=== PATIENT | male | born 1940 | race Caucasian/White ===

== ENCOUNTER 2022-12-02 08:53 | Outpatient (OUT) | payer MEDICARE, SELFPAY ==
[2022-12-02] VITALS (30 sets, daily range): BP systolic 113–171; BP diastolic 61–113; PULSE 60–78; RESP 10–23; O2SAT 95–100
--- NOTE | 2022-12-02 | OP_ITS ---
OPERATION DATE: ??12/02/2022 PROCEDURE PERFORMED:? Cardioversion. INDICATIONS:? Mr. Barroso presented to the ICU for cardioversion.? He was noted to be in atrial fibrillation and underlying paced rhythm.? PROCEDURE:? After sedation was provided, 200 joules of energy was delivered to cardiovert him and on this he cardioverted and his pacemaker was programmed to enable adequate AV delay to prevent PMT.? ANGELIKA
--- NOTE | 2022-12-02 08:05 | ECG_ITS ---
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
--- NOTE | 2022-12-02 10:18 | ECG_ITS ---
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
--- NOTE | 2022-12-02 12:01 | PC.NURSE ---
0950 anesthesia at bedside, pt a/o. this rn and jacobo valentine present. vs continuously monitored. 0951 time out performed with pt, nurses and dr salcido 0955 patches applied to pts chest and back per dr salcido, O2 applied at 6lnc via simple mask. medications given per anesthesia in RFA iv. 0957 pt shocked with 200J per dr salcido. pt sedated, remains in afib. 1007 electrophysiology at [facility] for pacemaker interrogation, pt in afib. 1008 pt medicated again per anesthesia 1012 pt sedated, simple mask maintained. continuous vs obtained. shocked 2nd time with 200J per dr salcido. electrophysiology interrogated pacemaker and determines pt is currently A-paced and V-paced. 1025 pt awake and talking, vs remain stable. this rn and jacobo valentine present. family updated.
== END 2022-12-02 11:28 | disposition home or self-care (01) ==
LOC: ICU 09:44 → INF 09:44
PROVIDERS: PCP Internal Medicine; Visit Provider Internal Medicine
DX: I48.91 Unspecified atrial fibrillation (principal); I48.92 Unspecified atrial flutter; I44.7 Left bundle-branch block, unspecified; R94.31 Abnormal electrocardiogram [ECG] [EKG]
CPT/HCPCS: 92960; 93005; J2704

== ENCOUNTER 2022-12-23 08:42 | Outpatient (OUT) | payer MEDICARE, SELFPAY ==
[2022-12-23 10:32] LABS: Anion Gap 9.8; BUN Creatinine Ratio 17.1; Carbon Dioxide 31.7 mmol/L (21.0-32.0); Chloride 103 mmol/L (98-107); Estimated GFR (African America >60 (>=60); Estimated GFR (Non-African Ame 53 (>=60); Glucose 211 mg/dL (74-106); Potassium 4.5 mmol/L (3.5-5.1); Sodium 140 mmol/L (136-145)
== END 2022-12-23 08:43 | disposition home or self-care (01) ==
LOC: LAB 08:44
PROVIDERS: PCP Internal Medicine
DX: I50.32 Chronic diastolic (congestive) heart failure (principal)
CPT/HCPCS: 36415; 80048; 83880

== ENCOUNTER 2022-12-31 13:48 | Outpatient (OUT) | payer MEDICARE, SELFPAY ==
--- NOTE | 2022-12-31 13:00 | CA_ITS ---
Patient: YAJAIRA VEGA Exam Date: 12/31/2022 : 1940 Gender:M Ordering : TYRONE ESQUIVEL Admission #: [id number] Family : DR Julio Patton D.Valarie Order #: [id number] CLICK HERE TO VIEW EXAM ECHOCARDIOGRAM REPORT PROCEDURE: CA ECHO DOPPLER COMPLETE INDICATIONS: CHF, Pacemaker COMPARISON: None. DESCRIPTION: COMPLETE ECHOCARDIOGRAM Real-time transthoracic echocardiography with 2D, M-mode, spectral and color flow Doppler performed. QUALITY: Lumason contrast was administered due to suboptimal imaging for left ventricular opacification to improve delineation of endocardial boarders. Limited; LVF LEFT VENTRICLE: Normal chamber size. Global left ventricular systolic function is normal. LV EF: Normal left ventricular ejection fraction, (>55%). DIASTOLIC: Unable to assess diastolic function. ATRIAL SEPTUM: Inadequately seen. LEFT ATRIUM: Moderate dilatation. RIGHT ATRIUM: Moderate dilatation. RIGHT VENTRICLE: Severe dilatation. Severely decreased right ventricular systolic function. Pacer wire present. TRICUSPID VALVE: Inadequately seen. MITRAL VALVE: Inadequately seen. AORTIC VALVE: Inadequately seen. AORTIC ROOT: Inadequately seen. PULMONIC VALVE: Inadequately seen. PERICARDIUM: No evidence of pericardial effusion. IVC: Collapses with inspirations. IVC is normal in size. CONCLUSION: Global left ventricular systolic function appears normal; visually estimated ejection fraction is 55 to 60%. Biatrial enlargement. The right ventricle appears severely dilated with significantly reduced systolic function. Valvular structures are inadequately seen. Adult Echocardiography Procedure Report Left Ventricle Left Atrium Mitral Valve Right Ventricle Aorta Aortic Valve Tricuspid Valve Pulmonic Valve Right Atrium Dictated by: Scotty Terry M.D. on 01/01/2023 at 18:40 Approved by: Scotty Terry M.D. on 01/01/2023 at 18:43
== END 2022-12-31 13:49 | disposition home or self-care (01) ==
LOC: CARD 13:48
PROVIDERS: PCP Internal Medicine; Visit Provider Nurse Practitioner
DX: I50.33 Acute on chronic diastolic (congestive) heart failure (principal); I51.9 Heart disease, unspecified
CPT/HCPCS: 93306; C8929

== ENCOUNTER 2023-03-26 08:50 | Outpatient (OUT) | payer MEDICARE, SELFPAY ==
[2023-03-26 09:13] LABS: Basophils Percent Auto 0.4 % (0.2-2.0); Eosinophils Absolute Auto 0.1 10^3/uL (0.0-0.7); Eosinophils Percent Auto 1.2 % (0.9-7.0); Hematocrit 47.4 % (42.0-54.0); Hemoglobin 15.5 g/dL (14.0-18.0); Immature Granulocytes Abs Auto 0.03 10^3/uL (0.00-0.03); Immature Granulocytes Pct Auto 0.3 % (0.0-0.5); Lymphocytes Absolute Auto 2.4 10^3/uL (1.2-3.8); Lymphocytes Percent Auto 26.4 % (20.5-60.0); Mean Corpuscular HGB Conc 32.7 g/dL (29.9-35.2); Mean Corpuscular Hemoglobin 29.4 pg (25.9-34.0); Mean Corpuscular Volume 89.9 fL (80.0-94.0); Mean Platelet Volume 11.6 fL (9.5-13.5); Monocytes Absolute Auto 0.8 10^3/uL (0.3-0.8); Monocytes Percent Auto 9.4 % (1.7-12.0); Neutrophils Absolute Auto 5.5 10^3/uL (1.4-6.5); Neutrophils Percent Auto 62.3 % (43.0-75.0); Platelet Count 213 10^3/uL (150-450); Red Blood Count 5.27 10^6/uL (4.70-6.10); Red Cell Distribution Width 13.5 % (11.0-15.0); White Blood Count 8.9 10^3/uL (4.0-11.0)
[2023-03-26 10:08] LABS: Microalbumin Urine Random 1.6 mg/dL (<=30.0)
[2023-03-26 10:14] LABS: Alanine Aminotransferase 21 U/L (16-63); Anion Gap 10.6; BUN Creatinine Ratio 16.9; Calcium 9.5 mg/dL (8.5-10.1); Carbon Dioxide 33.7 mmol/L (21.0-32.0); Chloride 103 mmol/L (98-107); Chol HDL Ratio 2.3; Cholesterol 147 mg/dL (<=200); Estimated GFR (African America 58 (>=60); Estimated GFR (Non-African Ame 48 (>=60); Glucose 143 mg/dL (74-106); HDL Cholesterol 63 mg/dL (40-60); Potassium 5.3 mmol/L (3.5-5.1); Sodium 142 mmol/L (136-145); Triglycerides 143 mg/dL (<=150); VLDL CHOLESTEROL 28.6 mg/dL
[2023-03-26 10:52] LABS: Estimated Average Glucose 177 mg/dL; Glycohemoglobin A1C 7.8 % (4.5-6.2)
== END 2023-03-26 08:51 | disposition home or self-care (01) ==
LOC: LAB 08:51
PROVIDERS: PCP Internal Medicine; Visit Provider Internal Medicine
DX: E11.65 Type 2 diabetes mellitus with hyperglycemia (principal); E78.00 Pure hypercholesterolemia, unspecified; I10 Essential (primary) hypertension; Z79.899 Other long term (current) drug therapy
CPT/HCPCS: 36415; 80048; 80061; 82043; 83036; 84460; 85025

== ENCOUNTER 2023-11-09 12:42 | Outpatient (OUT) | payer MEDICARE, SELFPAY ==
--- NOTE | 2023-11-09 13:00 | CA_ITS ---
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 PVR waveforms with normal upstroke, blunted amplitude and loss of dicrotic notch. 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 (right OSWALD 0.96) Significant left lower extremity arterial disease with mild hemodynamic impairment of the left lower extremity at rest. (left OSWALD 0.89) Electronically Signed On 11-09-2023 23:10:31 EDT by PABLO WHITESIDE
== END 2023-11-09 12:43 | disposition home or self-care (01) ==
LOC: CARD 12:42
PROVIDERS: PCP Internal Medicine; Visit Provider Student in an Organized Health Care Education/Training Program
DX: I73.9 Peripheral vascular disease, unspecified (principal)
CPT/HCPCS: 93923

== ENCOUNTER 2024-03-29 08:55 | Outpatient (OUT) | payer MEDICARE, SELFPAY ==
--- OUTSIDE RECORDS SUMMARY | 2024-03-29 09:14 | XMS_ITS | CCD ---
Author Organization [facility]ini[facility] Care Team Providers Care Cupola Tapper Helper Name Role Phone JULIO PATTON Unavailable Unavailable BALL, JULIO Unavailable Unavailable AHMED, GEORGE Unavailable Unavailable AHMED, GEORGE Unavailable Unavailable IN Unavailable Unavailable GUNNAR WALLACE Unavailable Unavailable TAMI SQUIRES AM Unavailable Unavailable BALL, JULIO Unavailable Unavailable RHONA, KADEN Unavailable Unavailable COLLINS, ANDREW Unavailable Unavailable IN Unavailable Unavailable ELTAHAWY, EHAB A Unavailable Unavailable IN Unavailable Unavailable Dipesh, Deni Unavailable Unavailable Abdi, Julio Unavailable ABDI, DR SHAH Primary Care Unavailable MOUKARBEL, DR VALLADARES Consulting Unavailable MOUKARBEL, DR VALLADARES Attending Unavailable MOUKARBEL, DR VALLADARES Admitting Unavailable BALL, DR SHAH Primary Care Unavailable TAPAN, DR BRASHER Attending Unavailable WEST, DR NICOLE Lo Consulting Unavailable TAPAN, DR BRASHER Admitting Unavailable TAPAN, DR BRASHER Consulting Unavailable BALL, DR SHAH Primary Care Unavailable BALL, DR SHAH Consulting Unavailable BALL, DR SHAH Admitting Unavailable BALL, DR SHAH Attending Unavailable BALL, DR SHAH Primary Care Unavailable BALL, DR SHAH Consulting Unavailable BALL, DR SHAH Admitting Unavailable BALL, DR SHAH Attending Unavailable BALL, DR SHAH Primary Care Unavailable BALL, DR SHAH Consulting Unavailable BALL, DR SHAH Admitting Unavailable BALL, DR SHAH Attending Unavailable BALL, DR SHAH Primary Care Unavailable BALL, DR SHAH Consulting Unavailable BALL, DR SHAH Attending Unavailable BALL, DR SHAH Admitting Unavailable JOHNSONSCOTT MARCOS Consulting Unavailable MICK ROA Attending Unavailable BALL, DR SHAH Primary Care Unavailable JOHNSON, SCOTT Consulting Unavailable MICK ROA Admitting Unavailable MICK ROA Consulting Unavailable PRATIMACHRIS SINCLAIR Consulting Unavailable CHRIS GRIJALVA Attending Unavailable CHRIS GRIJALVA Admitting Unavailable BALL, DR SHAH Primary Care Unavailable BALL, DR SHAH Primary Care Unavailable BALL, DR SHAH Consulting Unavailable BALL, DR SHAH Admitting Unavailable BALL, DR SHAH Attending Unavailable CHRIS GRIJALVA Admitting Unavailable PRATIMA, CHRIS Consulting Unavailable PRATIMACHRIS Attending Unavailable BALL, DR SHAH Primary Care Unavailable BALL, DR SHAH Primary Care Unavailable ABBAS, DR ROJAS Consulting Unavailable ABBAS, DR ROJAS Attending Unavailable ABBAS, DR ROJAS Admitting Unavailable WEST, DR NICOLE Lo Consulting Unavailable BALL, DR SHAH Primary Care Unavailable BALL, DR SHAH Admitting Unavailable BALL, DR SHAH Consulting Unavailable BALL, DR SHAH Attending Unavailable WEST, DR NICOLE Lo Consulting Unavailable BALL, DR SHAH Primary Care Unavailable ABBAS, DR ROJAS Consulting Unavailable ABBAS, DR ROJAS Attending Unavailable ABBAS, DR ROJAS Admitting Unavailable PRATIMA, CHRIS Attending Unavailable PRATIMA, CHRIS Admitting Unavailable PRATIMA, CHRIS Consulting Unavailable BALL, DR SHAH Primary Care Unavailable BALL, DR SHAH Primary Care Unavailable TAPAN, DR BRASHER Consulting Unavailable TAPAN, DR BRASHER Attending Unavailable TAPAN, DR BRASHER Admitting Unavailable PETZNICK, SASHA Mccabe Attending Unavailable PETZNICK, SASHA Mccabe Attending Unavailable BARAZI, TYRONE Attending Unavailable BARAZI, TYRONE Attending Unavailable PRATIMA, CHRIS Attending Unavailable PRATIMA, CHRIS Referring Unavailable BARAZI, TYRONE Attending Unavailable BARAZI, TYRONE Attending Unavailable PRATIMA, CHRIS Referring Unavailable CRISPINMICK Attending Unavailable PRATIMA, CHRIS Referring Unavailable Allergies Allergy Classification Reported Allergen(s) Allergy Type Date of Onset Reaction(s) Facility (2 sources) Bee/Wasp/Ant venom; Translations: [Bee/Wasp Stings] Propensity to adverse reactions (disorder) 8 AOF [facility] Repository (1 source) bee venom Drug allergy (disorder) [facility] Repository (9 sources) bald-faced hornet venom protein / common wasp venom protein / eastern yellow jacket venom protein / Spanish wasp venom protein / southern yellow jacket venom protein / western yellow jacket venom protein / yellow hornet venom protein Drug Allergy Mixed Vespid Venom Protein [facility] Other (1 source) patient allergy list reviewed by nurse or physicia Propensity to adverse reactions 5 Comment:Done [facility] Other (1 source) Allergies Reconciled Propensity to adverse reactions Unknown [facility] Other (2 sources) Bee/Wasp/Ant venom Allergy to substance 8 swelling at site [facility] (3 sources) MIXED VESPID VENOM PROTEIN; Translations: [MIXED VESPID VENOM PROTEIN] Drug Allergy 0 Mixed Vespid Venom Protein [facility] Medications Current Medications Medication Drug Class(es) Dates Sig (Normalized) Sig (Original) apixaban 5 mg oral tablet (15 sources) Factor Xa Inhibitor Start: 10-12-2023 take 1 tablet by mouth twice daily Apixaban (Eliquis) 5 mg tablet Active 0 .ROUTE .COMPLEX 60 October 12, 2023 6:34pm TAKE ONE TABLET BY MOUTH TWICE A DAY FOR 30 DAYS Start: 02-24-2018 End: 10-12-2023 take 1 tablet by mouth twice daily Apixaban (Eliquis) 5 mg Tablet Discontinued 5 MG PO Twice daily February 24, 2018 12:00am October 12, 2023 6:34pm Eliquis Active aspirin 81 mg oral tablet (11 sources) Platelet Aggregation Inhibitor, Nonsteroidal Anti-inflammatory Drug Start: 04-28-2023 take 1 tablet by mouth once daily Aspirin 81 81 MG 1 tablet Orally Once a day for 30 days Mar, Active Start: 02-24-2018 take 81 mg by mouth once daily Aspirin Active 81 MG PO Daily February 24, 2018 12:00am take 1 tablet by ashley th every twenty-four hours Aspirin 81 MG 1 tablet Orally Once a day Active Aspirin Active finasteride 5 mg oral tablet (12 sources) 5-alpha Reductase Inhibitor Start: 03-02-2024 take 1 tablet by mouth once daily Finasteride Active 0 .ROUTE .COMPLEX March 02, 2024 9:29am TAKE ONE TABLET BY MOUTH ONCE DAILY Start: 02-24-2018 End: 03-02-2024 take 5 mg by mouth once daily Finasteride Discontinued 5 MG PO Daily February 24, 2018 12:00am March 02, 2024 9:29am Finasteride Acti ve furosemide 40 mg oral tablet (9 sources) Loop Diuretic Start: 02-16-2024 take 1 tablet by mouth once daily Furosemide Active 0 .ROUTE .COMPLEX February 16, 2024 9:33pm TAKE ONE TABLET BY MOUTH DAILY Start: 08-17-2023 End: 02-16-2024 take 40 mg by mouth once daily Furosemide Discontinued 40 MG PO Daily August 17, 2023 1:00am February 16, 2024 9:33pm Start: 04-28-2023 take 1 tablet by ashley th every twenty-four hours Furosemide 40 MG 1 tablet Orally Once a day for 30 days Mar, Active take 5 tablets by mo uth every twenty-four hours Furosemide 40 MG 5 mL Oral Once a day for 30 days Active gabapentin 300 mg oral capsule (11 sources) Anti-epileptic Agent Start: 02-24-2018 take 300 mg by mouth once daily Gabapentin Active 300 MG PO Daily February 24, 2018 12:00am Gabapentin Activ e 3 ml insulin aspart, human 100 unt/ml pen injector (2 sources) Insulin Analog Start: 04-28-2023 inject 100 [IU] by subcutaneous injection once Fiasp FlexTouch 100 UNIT/ML Per sliding scale Subcutaneous Mar, Active 3 ml insulin glargine 100 unt/ml pen injector (4 sources) Insulin Analog Start: 09-23-2023 Insulin Glargi ne (Lantus Solostar U-100 Insulin) 100 unit/mL (3 mL) insulin pen Active 22 UNIT SUBCUT Every morning September 23, 2023 12:00am Start: 04-28-2023 Lantus SoloSta r 100 UNIT/ML 22 units Subcutaneous qd for 30 days Mar, Active polyethylene glycol 3350 80963 mg powder for oral solution (2 sources) Osmotic Laxative Start: 04-28-2023 MiraLax 17 GM /SCOOP 1 scoop mixed with 8 ounces of fluid Orally Once a day for 30 days Mar, Active Polyethylene Glycols (3 sources) Polyethylene Gly col Active rosuvastatin calcium 40 mg oral tablet (12 sources) HMG-CoA Reductase Inhibitor Start: 03-02-2024 take 1 tablet by mouth once daily in the evening Rosuvastatin Active 0 .ROUTE .COMPLEX 90 March 02, 2024 9:29am TAKE ONE TABLET BY MOUTH DAILY IN THE EVENING Start: 02-24-2018 End: 03-02-2024 take 40 mg by mouth once daily Rosuvastatin Discontinu ed 40 MG PO Daily February 24, 2018 12:00am March 02, 2024 9:29am Rosuvastatin Berny cium Active sotalol hydrochloride 120 mg oral tablet (2 sources) Antiarrhythmic Start: 04-28-2023 take 1 tablet by mouth every twelve hours Sotalol HCl 120 MG 1 tablet Orally every 12 hrs for 30 days Mar, Active tamsulosin hydrochloride 0.4 mg oral capsule (11 sources) alpha-Adrenergic Marcelina Start: 04-28-2023 Tamsulosin HCl 0.4 MG 2 Orally Once a day for 30 days Mar, Active Start: 02-24-2018 take 0.4 mg by mouth once nuha y Tamsulosin Active 0.4 MG PO Daily February 24, 2018 12:00am take 1 capsule by mo uth twice daily Tamsulosin HCl 0.4 mg TAKE ONE CAPSULE BY MOUTH TWICE A DAY for 90 Active take 2 capsules by m outh every twenty-four hours Tamsulosin HCl 0.4 MG 2 capsules Orally Once a day Active Tamsulosin HCl A ctive Completed/Discontinued Medications Medication Drug Class(es) Dates Sig (Normalized) Sig (Original) amLODIPine 5 mg oral tablet (5 sources) Dihydropyridine Calcium Channel Marcelina Start: 02-24-2018 End: 09-22-2023 take 5 mg by mouth once daily Amlodipine Discontinued 5 MG PO Daily February 24, 2018 12:00am September 22, 2023 2:15pm amLODIPine Besyl ate Active lisinopril 10 mg oral tablet (7 sources) Angiotensin Converting Enzyme Inhibitor take 1 tablet by mouth once daily Lisinopril 10 mg TAKE ONE TABLET BY MOUTH ONCE DAILY 30 for 30 Not-Taking 24 hr metoprolol succinate 25 mg extended release oral tablet (5 sources) beta-Adrenergic Marcelina Start: End: take 25 mg by mouth once daily Metoprolol Succinate Discontinued 25 MG PO Daily February 24, 2018 12:00am September 22, 2023 2:15pm Metoprolol Tartr ate Active sulfamethoxazole 800 mg / trimethoprim 160 mg oral tablet (7 sources) Dihydrofolate Reductase Inhibitor Antibacterial, Sulfonamide Antimicrobial Start: 09-19-2022 take 1 tablet by mouth every twelve hours Bactrim DS 800-160 MG 1 tablet Orally Twice a day for 10 days Aug, Not-Taking 24 hr traMADol hydrochloride 100 mg extended release oral tablet (5 sources) Opioid Agonist Start: 02-24-2018 End: 09-22-2023 take 100 mg by mouth once daily Tramadol Discontinued 100 MG PO Daily February 24, 2018 12:00am September 22, 2023 2:15pm traMADol HCl Act tiesha Problems Active Problems Problem Classification Problem Date Documented Da te Episodic/Chronic Acute cerebrovascular disease (1 source) Cerebral infarction; Translations: [Cerebral infarction, unspecified] Chronic Cardiac dysrhythmias (20 sources) Unspecified atrial fibrillation; Translations: [Paroxysmal atrial fibrillation] Onset: 12-22-2017 Chronic Chronic kidney disease (12 sources) Chronic kidney disease stage 3A ; Translations: [Stage 3a chronic kidney disease] 09-22-2023 Chronic Conduction disorders (3 sources) Presence of cardiac pacemaker; Translations: [Encounter for adjustment and management of automatic implantable cardiac defibrillator] Onset: 10-30-2022 Chronic Congestive heart failure; nonhypertensive (6 sources) Acute combined systolic (congestive) and diastolic (congestive) heart failure; Translations: [Acute combined systolic and diastolic heart failure] Onset: 03-31-2022 Chronic Coronary atherosclerosis and other heart disease (20 sources) Old myocardial infarction; Translations: [Atherosclerotic heart disease of [place] coronary artery with unstable angina pectoris] Onset: 09-19-2014 Chronic Deficiency and other anemia (1 source) Anemia; Translations: [Anemia, unspecified] Episodic Diabetes mellitus with complications (15 sources) Hyperglycemia due to type 2 diabetes mellitus; Translations: [Type 2 diabetes mellitus with hyperglycemia] Chronic Diabetes mellitus without complication (2 sources) Type 2 diabetes mellitus without complications; Translations: [Type 2 diabetes mellitus without complication] Onset: 10-30-2022 Chronic Disorders of lipid metabolism (19 sources) Hyperlipidemia, unspecified; Translations: [Pure hypercholesterolemi a] Onset: 10-31-2015 Chronic Essential hypertension (20 sources) Essential (primary) hypertension; Translations: [Benign essential hypertension] Onset: 09-19-2014 Chronic Genitourinary symptoms and ill-defined conditions (3 sources) Dysuria; Translations: [Dysuria] Onset: 03-31-2016 Episodic Hyperplasia of prostate (17 sources) Benign prostatic hyperplasia without lower urinary tract symptoms; Translations: [Lower urinary tract symptoms due to benign prostatic hypertrophy] Onset: 09-19-2014 Chronic Hypertension with complications and secondary hypertension (1 source) Hypertensive heart disease with heart failure; Translations: [HTN HEART DISEASE W/HEART FAIL] Onset: 03-31-2022 Chronic Immunizations and screening for infectious disease (2 sources) Encounter for immunization; Translations: [Vaccination given] Onset: 02-10-2022 Episodic Occlusion or stenosis of precerebral arteries (5 sources) Occlusion and stenosis of unspecified carotid artery; Translations: [Occlusion and stenosis of bilateral carotid arteries] Onset: 01-21-2022 Chronic Other aftercare (1 source) senior care (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 aspirin; Translations: [FCI (CURRENT) USE OF ASPIRIN] Onset: 06-04-2018 Episodic Other aftercare (1 source) Long-term current use of drug therapy; Translations: [Other longterm (current) drug therapy] Episodic Other aftercare (1 source) Long-term current use of anticoagulant; Translations: [senior care (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 anticoagulants] Episodic Other aftercare (10 sources) Long-term current use of insulin; Translations: [senior care (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 insulin] 09-22-2023 Episodic Other aftercare (1 source) 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 Episodic Other aftercare (1 source) Other commissary manager (current) drug therapy Episodic Other and ill-defined heart disease (1 source) Heart disease; Translations: [Heart disease, unspecified] Chronic Other and unspecified benign neoplasm (11 sources) Polyp of colon; Translations: [Polyp of colon] Episodic Other circulatory disease (1 source) Other specified symptoms and signs involving the circulatory and respiratory systems; Translations: [OTH SPEC SX SIGNS INVLV CIRC RS] Onset: 09-20-2022 Episodic Other diseases of veins and lymphatics (11 sources) Peripheral venous insufficiency; Translations: [Venous insufficiency (chronic) (peripheral)] 09-22-2023 Episodic Other diseases of veins and lymphatics (2 sources) Venous insufficiency (chronic) (peripheral); Translations: [Venous (peripheral) insufficiency, unspecified] Episodic Other diseases of veins and lymphatics (1 source) Venous insufficiency of leg; Translations: [Venous insufficiency (chronic) (peripheral)] 09-23-2023 Episodic Other gastrointestinal disorders (1 source) Irritable bowel syndrome characterized by constipation; Translations: [Irritable bowel syndrome with constipation] Onset: 05-24-2018 Chronic Other gastrointestinal disorders (11 sources) Constipation; Translations: [Constipation, unspecified] Episodic Other gastrointestinal disorders (13 sources) Altered bowel function; Translations: [Change in bowel habit] 06-10-2023 Episodic Other injuries and conditions due to external causes (4 sources) Exhaustion due to excessive exertion, initial encounter; Translations: [EXHAUSTION D/T EXCESS EXERTION INIT] Onset: 10-24-2022 Episodic Other injuries and conditions due to external causes (1 source) History of fall; Translations: [History of falling] Episodic Other nervous system disorders (1 source) Polyneuropathy, unspecified; Translations: [POLYNEUROPATHY, UNSPECIFIED] Onset: 12-22-2017 Chronic Other nervous system disorders (1 source) Hereditary peripheral neuropathy; Translations: [Unspecified hereditary and idiopathic peripheral neuropathy] Onset: 05-28-2017 Chronic Other non-traumatic joint disorders (1 source) Arthralgia of the pelvic region and thigh; Translations: [Pain in left hip] Episodic Other nutritional; endocrine; and metabolic disorders (13 sources) Obese class I; Translations: [Body mass index (BMI) 31.0-31.9, adult] Onset: 09-19-2014 Chronic Other nutritional; endocrine; and metabolic disorders (2 sources) Obesity; Translations: [Obesity, unspecified] 09-23-2023 Chronic Other nutritional; endocrine; and metabolic disorders (1 source) Simple obesity ; Translations: [Other obesity due to excess calories] Chronic Other nutritional; endocrine; and metabolic disorders (1 source) Body mass index 30+ - obesity; Translations: [Body mass index 31.0-31.9, adult] Onset: 09-19-2014 Chronic Other nutritional; endocrine; and metabolic disorders (1 source) Obesity, unspecified; Translations: [Obesity, unspecified] 03-28-2024 Chronic Other nutritional; endocrine; and metabolic disorders (12 sources) Weight loss; Translations: [Abnormal weight loss] 09-22-2023 Episodic Other screening for suspected conditions (not mental disorders or infectious disease) (2 sources) Encounter for screening for malignant neoplasm of prostate; Translations: [Patient encounter status] Episodic Residual codes; unclassified (1 source) Requires influenza virus vaccination; Translations: [Need for prophylactic vaccination and inoculation, Influenza] Episodic Skin and subcutaneous tissue infections (2 sources) Abscess of foot; Translations: [Cutaneous abscess of left foot] Resolved: 11-06-2020 Episodic Spondylosis; intervertebral disc disorders; other back problems (1 source) Lumbosacral spondylosis without myelopathy; Translations: [Spondylosis without myelopathy or radiculopathy, lumbar region] Chronic Spondylosis; intervertebral disc disorders; other back problems (1 source) Low back pain; Translations: [Low back pain, unspecified] Episodic Substance-related disorders (4 sources) Tobacco user; Translations: [Nicotine dependence, cigarettes, uncomplicated] Onset: 09-19-2014 Chronic Unclassified (2 sources) Unknown / UNK(Unknown) Onset: 06-04-2018 Unclassified (3 sources) LOW BACK PAIN, UNSPECIFIED; Translations: [LOW BACK PAIN, UNSPECIFIED] Onset: 12-06-2021 Unclassified (1 source) Long-term current use of drug therapy; Translations: [Long-term (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 other medications] Onset: 11-26-2016 Unclassified (2 sources) Other persistent atrial fibrillation; Translations: [Other persistent atrial fibrillation] Onset: 12-19-2022 Viral infection (5 sources) COVID-19; Translations: [Disease caused by 2019-nCoV] Onset: 02-07-2022 Past or Other Problems Problem Classification Problem Date Documented Da te Episodic/Chronic Cardiac dysrhythmias (4 sources) Bradycardia, unspecified; Translations: [BRADYCARDIA UNSPECIFIED] Onset: 05-07-2022 Episodic Chronic kidney disease (1 source) Chronic kidney disease Complication of device; implant or graft (7 sources) Displacement of cardiac electrode, initial encounter; Translations: [Displacement of other cardiac electronic device, initial encounter] Onset: 06-27-2022 Episodic Coronary atherosclerosis and other heart disease (1 source) Presence of coronary angioplasty implant and graft; Translations: [PRESENCE OF CORONARY ANGIOPLASTY IMPLANT AND GRAFT] Onset: 12-22-2017 Episodic Malaise and fatigue (1 source) Malaise and fatigue; Translations: [Other malaise and fatigue] Onset: 11-17-2017 Episodic Mycoses (1 source) Onychomycosis due to dermatophyte ; Translations: [Tinea unguium] Onset: 07-27-2018 Episodic Nonspecific chest pain (4 sources) Chest pain, unspecified; Translations: [Chest pain] Onset: 04-23-2015 Episodic Other aftercare (2 sources) 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 engineer (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 anticoagulants; Translations: [FCI (CURRENT) USE OF ANTICOAGULANTS] Onset: 06-04-2018 Episodic Other aftercare (1 source) 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 engineer (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 antithrombotics/anti platelets; Translations: [CRANE LADLE PERSON (CURRENT) USE OF ANTITHROMBOTICS/ANTI PLATELETS] Onset: 12-22-2017 Episodic Other circulatory disease (1 source) Cardiovascular symptoms; Translations: [Other specified symptoms and signs involving the circulatory and respiratory systems] Resolved: 11-06-2020 Episodic Other circulatory disease (1 source) H/O: cardiovascular disease; Translations: [Personal history of other diseases of the circulatory system] Resolved: 11-06-2020 Episodic Other gastrointestinal disorders (1 source) Other specified symptoms and signs involving the digestive system and abdomen; Translations: [Oth symptoms and signs involving the dgstv sys and abdomen] Onset: 02-15-2018 Episodic Other lower respiratory disease (1 source) Dyspnea; Translations: [Dyspnea, unspecified] Onset: 04-23-2015 Episodic Other nervous system disorders (1 source) Paresthesia; Translations: [Paresthesia of skin] Onset: 09-19-2014 Episodic Other non-traumatic joint disorders (1 source) Pain in left hip; Translations: [PAIN IN LEFT HIP] Onset: 12-06-2021 Episodic Other nutritional; endocrine; and metabolic disorders (1 source) Abnormal weight loss; Translations: [Abnormal weight loss] Onset: 02-15-2018 Episodic Other skin disorders (1 source) Ingrowing nail; Translations: [Ingrowing nail] Resolved: 11-06-2020 Episodic Other skin disorders (1 source) Nail bed infection; Translations: [Onychia and paronychia of toe] Onset: 07-27-2018 Episodic Peripheral and visceral atherosclerosis (5 sources) Peripheral vascular disease, unspecified; Translations: [Peripheral vascular disease] Onset: 09-15-2022 Resolved: 11-06-2020 Chronic Residual codes; unclassified (2 sources) Tobacco user; Translations: [Tobacco use] Onset: 09-19-2014 Episodic Residual codes; unclassified (1 source) Sleep disorder; Translations: [Persistent disorder of initiating or maintaining sleep] Onset: 01-14-2018 Episodic Screening and history of mental health and substance abuse codes (2 sources) Personal history of nicotine dependence; Translations: [History of tobacco use] Onset: 09-19-2014 Episodic Unclassified (1 source) LOW BACK PAIN, UNSPECIFIED; Translations: [LOW BACK PAIN, UNSPECIFIED] Onset: 12-02-2021 Results Test Name Value Interpretation Reference Range Facility Office Visiton 10-22-2023 Follow-up visit [id number] [place] navneet A 1940 Date Provider Department Center 10/22/2023 MICK MELLO CARD [facility] No family history on file Level of Service:[id number] IN OFFICE/OUTPATIENT ESTABLISHED MOD MDM 30 MIN Reason for Visit and Comments: Atrial Fibrillation [80] Congestive Heart Failure [127] Coronary Artery Disease [187] Hypertension [042270] Normal [facility] Office Visiton 05-25-2023 Follow-up visit [id number] [place] navneet A 1940 Date Provider Department Center 05/25/2023 TYRONE LOWE CARD [facility] No family history on file Level of Service:[id number] IN OFFICE/OUTPATIENT ESTABLISHED MOD MDM 30-39 MIN Normal [facility] Office Visiton 02-24-2023 Follow-up visit [id number] [place] navneet A 1940 Date Provider Department Center 02/24/2023 CHRIS JAFFE CARD [facility] No family history on file Level of Service:[id number] IN OFFICE/OUTPATIENT ESTABLISHED HIGH MDM 40-54 MIN Normal [facility] Office Visiton 12-31-2022 Follow-up visit [id number] [place] navneet A 1940 Date Provider Department Center 12/31/2022 TYRONE LOWE [facility] No family history on file Level of Service:[id number] IN OFFICE/OUTPATIENT ESTABLISHED MOD MDM 30-39 MIN Normal [facility] Office Visiton 12-24-2022 Follow-up visit [id number] [place] navneet A 1940 M Date Provider Department Center 12/24/2022 TYRONE LOWE CARD [facility] No family history on file Level of Service:[id number] IN OFFICE/OUTPATIENT ESTABLISHED MOD MDM 30-39 MIN Reason for Visit and Comments: Follow-up [908347] - 1 week Normal [facility] 36on 12-23-2022 36 Lab called to report critical BNP of 3,834 Normal [facility] Office Visiton 12-19-2022 Follow-up visit [id number] Kalyn Barroso 1940 M Date Provider Department Center 12/19/2022 1596-CHRISTOPHERBASILTYRONE BH CARD [facility] No family history on file Level of Service:30693 IN OFFICE/OUTPATIENT ESTABLISHED MOD MDM 30-39 MIN Reason for Visit and Comments: Follow-up [[id number]] - Pt is here for f/u cardioversion Normal [facility] ECHOCARDIO M/2D COMPLETEon 0 10-24-2022 ECHOCARDIO M/2D COMPLETE Patient: MENDOZA BARROSO Exam Date: 10/24/2022 : 1940 Gender:M Ordering : CHRIS GRIJALVA Admission #: [id number] Family : DR JULIO PATTON DJhoan Order #: [id number] CLICK HERE TO VIEW EXAM ECHOCARDIOGRAM REPORT PROCEDURE: CARDIO PULMONARY ECHOCARDIO M/2D COMP INDICATIONS: Fatigue, pacemaker, atrial fibrillation, diabetes, hypertension COMPARISON: None. DESCRIPTION: COMPLETE ECHOCARDIOGRAM Real-time transthoracic echocardiography with 2D, M-mode, spectral and color flow Doppler performed. QUALITY: Technical quality was good. LEFT VENTRICLE: Normal chamber size. Normal left ventricular wall thickness. LV EF: Global left ventricular systolic function is difficult to assess but appears normal; visually estimated ejection fraction is 55 to 60%. Cannot comment on regional wall motion abnormality; consider contrast study for better delineation of endocardial borders. DIASTOLIC: Unable to assess diastolic function due to underlying rhythm. ATRIAL SEPTUM: Visually appears intact. LEFT ATRIUM: Mild dilatation. RIGHT ATRIUM: Moderate dilatation. RIGHT VENTRICLE: Mild dilatation. Systolic function appears reduced. Pacer wire present. TRICUSPID VALVE: Normal mobility and thickness. Mild regurgitation. Doppler studies reveal mildly (35-45) elevated right sided pressures. RVSP 35 mmHg MITRAL VALVE: Normal mobility and thickness. No evidence of mitral valve stenosis. There is no mitral annular calcification. No mitral regurgitation. AORTIC VALVE: Normal trileaflet appearance. Mildly calcified aortic valve. Normal leaflet mobility. No evidence of aortic valve stenosis. No aortic regurgitation. AORTIC ROOT: Normal diameter and appearance. PULMONIC VALVE: Normal thickness and mobility. No stenosis. No regurgitation. PERICARDIUM: Anterior free space; trivial effusion versus fat pad. IVC: Collapses with inspirations. IVC is dilated (2.4 cm) CONCLUSION: 1. Global left ventricular systolic function is difficult to assess but appears preserved; visually estimated ejection fraction is 55 to 60%. 2. Unable to assess diastolic function due to underlying rhythm. 3. Biatrial enlargement. 4. The right ventricle is mildly dilated with reduced systolic function. 5. Mild tricuspid regurgitation. 6. Mildly elevated right-sided pressures. 7. Anterior free space; trivial effusion versus fat pad. Adult Echocardiography Procedure Report Left Ventricle LVEDD (3.7 - 5.6 cm): 4.72 cm LVESD (2.2 - 4.0 cm): 3.55 cm LVIVS thickness (0.6 - 1.2 cm): 1.01 cm LVPW thickness (0.5 - 1.0 cm): 0.88 cm e': 0.10 m/s E - e': 8.03 LVOT Max Gradient: 1.51 mm[Hg] Peak Velocity (LVOT): 0.61 m/s LVOT Diameter 2.08 cm Left Atrium LA Volume Index (2D A2C): 85.29 ml, 85.29 ml Left Atrium Systolic Dimension: 4.10 cm Mitral Valve MV E to A Ratio: 3.59 Mitral Valve A-Wave Peak Velocity: 0.23 m/s Mitral Valve E-Wave Peak Velocity: 0.82 m/s Right Ventricle Aorta AO Root Diam: 2.85 cm Aortic Valve AoV Area (Peak Armand): 1.89 cm2, 1.89 cm2 Peak Velocity(Antegrade Flow): 1.11 m/s Peak Gradient(Antegrade Flow): 4.91 mm[Hg] Tricuspid Valve Peak Velocity (Regurgitant Flow): 2.58 m/s Peak Velocity: 0.35 m/s Pulmonic Valve Peak Velocity: 0.67 m/s, 0.66 m/s Peak Gradient: 1.80 mm[Hg], 1.75 mm[Hg] Right Atrium Right Atrium Systolic Pressure: 64.74 ml, 64.74 ml Dictated by: Scotty Arguelles M.D. on 10/24/2022 at 16:23 Approved by: Scotty Arguelles M.D. on 10/24/2022 at 16:29 Normal [facility] Urinalysis - DIPSTICKon 08-28 Appearance (U) cloudy [employer] Other Bilirubin Ql (U) small [employer] Other Color (U) brown [employer] Other Glucose Ql (U) + [employer] Other Hemoglobin Ql (U) Negative [employer] Other Ketones Ql (U) trace [employer] Other Leukocyte esterase Test strip Ql (U) moderate [employer] Other Nitrite Ql (U) Positive [employer] Other pH (U) 6.5 [pH] [employer] Other Protein Ql (U) ++++ [employer] Other Specific gravity (U) [Rel density] 1.000 [employer] Other Urobilinogen (U) [Mass/Vol] 0.2 mg/dL [employer] Other Urinalysis - DIPSTICK [employer] Other PROF CHEM 8 (BAS METB)on Anion gap [Moles/Vol] 7.6 mmol/L Normal [facility] Comment on above: Performed By: #### BMP #### [facility] [address] [place] [address] Dr. Shruti Roper Calcium [Mass/Vol] 8.6 mg/dL Normal 8.5-10.1 [facility] Comment on above: Performed By: #### BMP #### [facility] [address] [address] [address] Shruti Roper Chloride [Moles/Vol] 105 mmol/L Normal 98-107 [facility] Comment on above: Performed By: #### BMP #### [facility] [address] [address] [address] Shruti Roper CO2 [Moles/Vol] 30.7 mmol/L Normal 21.0-32.0 [facility] Comment on above: Performed By: #### BMP #### [facility] [address] [place] [address] Dr. Shruti Roper Creatinine [Mass/Vol] 1.18 mg/dL Normal 0.70-1.30 [facility] Comment on above: Performed By: #### BMP #### [facility] [address] [place] [address] Dr. Shruti Roper EGFR-AF SERBIAN >60 Normal >=60 [facility] Comment on above: Performed By: #### BMP #### [facility] [address] [place] [address] Dr. Shruti Roper EGFR-NON AF SERBIAN 59 mL/min/1.73m2 Critically low >=60 [facility] Comment on above: Performed By: #### BMP #### [facility] [address] [place] [address] Dr. Shruti Roper Glucose [Mass/Vol] 205 mg/dL Critically high 74-106 [facility] Comment on above: Performed By: #### BMP #### [facility] [address] [place] [address] Dr. Shruti Roper Potassium [Moles/Vol] 4.3 mmol/L Normal 3.5-5.1 [facility] Comment on above: Performed By: #### BMP #### [facility] [address] [place] [address] Dr. Shruti Roper Sodium [Moles/Vol] 139 mmol/L Normal 136-145 [facility] Comment on above: Performed By: #### BMP #### [facility] [address] [place] [address] Dr. Shruti Roper Urea nitrogen [Mass/Vol] 17.0 mg/dL Normal 7.0-18.0 [facility] Comment on above: Performed By: #### BMP #### [facility] [address] [place] [address] Dr. Shruti Roper Urea nitrogen/Creati nine [Mass ratio] 14.4 mg/mg Normal [facility] Comment on above: Performed By: #### BMP #### [facility] [address] [place] [address] Dr. Shruti Roper CBC AUTO DIFFon 07-04-2022 BASO # 0.0 103/ul Normal 0.0-0.1 [facility] Comment on above: Performed By: #### CBC #### [facility] [address] [place] [address] Dr. Shruti Roper Basophils/100 WBC (Bld) 0.4 % Normal 0.2-2.0 [facility] Comment on above: Performed By: #### CBC #### [facility] [address] [place] [address] Dr. Shruti Roper EO # 0.1 103/ul Normal 0.0-0.7 [facility] Comment on above: Performed By: #### CBC #### [facility] [address] [place] [address] Dr. Shruti Roper Eosinophils/100 WBC (Bld) 1.5 % Normal 0.9-7.0 [facility] Comment on above: Performed By: #### CBC #### [facility] [address] [place] [address] Dr. Shruti Roper Erythrocyte distribution width (RBC) [Ratio] 16.0 % Critically high 11.0-15.0 [facility] Comment on above: Performed By: #### CBC #### [facility] [address] [place] [address] Dr. Shruti Roper Hematocrit (Bld) [Volume fraction] 44.5 % Normal 42.0-54.0 [facility] Comment on above: Performed By: #### CBC #### [facility] [address] [place] [address] Dr. Shruti Roper Hemoglobin (Bld) [Mass/Vol] 14.6 g/dL Normal 14.0-18.0 [facility] Comment on above: Performed By: #### CBC #### [facility] [address] [place] [address] Dr. Shruti Roper IG # 0.04 10e3/ul Critically high 0.00-0.03 [facility] Comment on above: Performed By: #### CBC #### [facility] [address] [place] [address] Dr. Shruti Roper IG % 0.4 % Normal 0.0-0.5 [facility] Comment on above: Performed By: #### CBC #### [facility] [address] [place] [address] Dr. Shruti Roper LYMPH # 2.6 103/ul Normal 1.2-3.8 [facility] Comment on above: Performed By: #### CBC #### [facility] [address] [place] [address] Dr. Shruti Roper Lymphocytes/100 WBC (Bld) 26.8 % Normal 20.5-60.0 [facility] Comment on above: Performed By: #### CBC #### [facility] [address] [place] [address] Dr. Shruti Roper MANUAL DIFF REQ NO Normal [facility] Comment on above: Performed By: #### CBC #### [facility] [address] [place] [address] Dr. Shruti Roper MCH (RBC) [Entitic mass] 26.7 pg Normal 25.9-34.0 [facility] Comment on above: Performed By: #### CBC #### [facility] [address] [place] [address] Dr. Shruti Roper MCHC (RBC) [Mass/Vol] 32.8 g/dL Normal 29.9-35.2 [facility] Comment on above: Performed By: #### CBC #### [facility] [address] [place] [address] Dr. Shruti Roper MCV (RBC) [Entitic vol] 81.5 fL Normal 80.0-94.0 [facility] Comment on above: Performed By: #### CBC #### [facility] [address] [place] [address] Dr. Shruti Roper MONO # 1.0 103/ul Critically high 0.3-0.8 [facility] Comment on above: Performed By: #### CBC #### [facility] [address] [address] [address] Shruti Roper Monocytes/100 WBC (Bld) 10.8 % Normal 1.7-12.0 [facility] Comment on above: Performed By: #### CBC #### [facility] [address] [address] [address] Shruti Roper NEUT # 5.8 103/ul Normal 1.4-6.5 [facility] Comment on above: Performed By: #### CBC #### [facility] [address] [place] [address] Dr. Shruti Roper Neutrophils/100 WBC (Bld) 60.1 % Normal 43.0-75.0 [facility] Comment on above: Performed By: #### CBC #### [facility] [address] [place] [address] Dr. Shruti Roper Platelet mean volume (Bld) [Entitic vol] 10.5 fL Normal 9.5-13.5 [facility] Comment on above: Performed By: #### CBC #### [facility] [address] [place] [address] Dr. Shruti Roper PLT 216 103/ul Normal 150-450 [facility] Comment on above: Performed By: #### CBC #### [facility] [address] [place] [address] Dr. Shruti Roper RBC 5.46 106/ul Normal 4.70-6.10 [facility] Comment on above: Performed By: #### CBC #### [facility] [address] [place] [address] Dr. Shruti Roper WBC 9.6 103/ul Normal 4.0-11.0 [facility] Comment on above: Performed By: #### CBC #### [facility] [address] [place] [address] Dr. Shruti Roper PROF CHEM 8 (BAS METB)on Anion gap [Moles/Vol] 8.9 mmol/L Normal [facility] Comment on above: Performed By: #### BMP ####[facility] ital [address] [address]Dr. Shruti Roper Calcium [Mass/Vol] 8.6 mg/dL Normal 8.5-10.1 [facility] Comment on above: Performed By: #### BMP ####[facility] ital [address] [address]Dr. Shruti Roper Chloride [Moles/Vol] 106 mmol/L Normal 98-107 [facility] Comment on above: Performed By: #### BMP ####[facility] ital [address] [address]Dr. Shruti Roper CO2 [Moles/Vol] 31.3 mmol/L Normal 21.0-32.0 [facility] Comment on above: Performed By: #### BMP ####[facility] [address] [address]Dr. Shruti Roper Creatinine [Mass/Vol] 1.15 mg/dL Normal 0.70-1.30 [facility] Comment on above: Performed By: #### BMP ####[facility] [address] [address]Dr. Shruti Roper EGFR-AF SERBIAN >60 Normal >=60 [facility] Comment on above: Performed By: #### BMP ####[facility] [address] [address]Dr. Shruti Roper EGFR-NON AF SERBIAN >60 Normal >=60 [facility] Comment on above: Performed By: #### BMP ####[facility] [address] [address]Dr. Shruti Roper Glucose [Mass/Vol] 117 mg/dL Critically high 74-106 [facility] Comment on above: Performed By: #### BMP ####[facility] [address] [address]Dr. Shruti Roper Potassium [Moles/Vol] 4.2 mmol/L Normal 3.5-5.1 [facility] Comment on above: Performed By: #### BMP ####[facility] [address] [address]Dr. Shruti Roper Sodium [Moles/Vol] 142 mmol/L Normal 136-145 [facility] Comment on above: Performed By: #### BMP ####[facility] ital [address] [address]Dr. Shruti Roper Urea nitrogen [Mass/Vol] 11.0 mg/dL Normal 7.0-18.0 [facility] Comment on above: Performed By: #### BMP ####[facility] ital [address] [place], [place] [address]Dr. Shruti Roper Urea nitrogen/Creati nine [Mass ratio] 9.6 mg/mg Normal [facility] Comment on above: Performed By: #### BMP ####[facility] ital [address] [place], [place] [address]Dr. Shruti Judson ELECTROLYTESon 06-24-2022 Anion gap [Moles/Vol] 6.8 mmol/L Normal [facility] Comment on above: Performed By: #### ELEC ####[facility] pital [address] [place], [place] [address]Dr. Shruti Roper Chloride [Moles/Vol] 106 mmol/L Normal 98-107 [facility] Comment on above: Performed By: #### ELEC ####[facility] pital [address] [place], [place] [address]Dr. Shruti Judson CO2 [Moles/Vol] 32.0 mmol/L Normal 21.0-32.0 [facility] Comment on above: Performed By: #### ELEC ####[facility] [address] [place], [place] [address]Dr. Shruti Roper Potassium [Moles/Vol] 4.8 mmol/L Normal 3.5-5.1 [facility] Comment on above: Performed By: #### ELEC ####[facility] [address] [place], [place] [address]Dr. Meremichoacano Roper Sodium [Moles/Vol] 140 mmol/L Normal 136-145 [facility] Comment on above: Performed By: #### ELEC ####[facility] [address] [place], [place] [address]Dr. Shruti Roper PROTIMEon 06-24-2022 INR Coag (PPP) [Relative time] 1.04 {INR} Normal [facility] Comment on above: Performed By: #### PT #### [facility] [address] [address] [address] Shruti Roper INR GUIDELINES SEE BELOW Normal [facility] Comment on above: Result Comment: DESIRED INR: 2.0 - 3.0 C ONDITIONS NOT LISTED BELOW 2.5 - 3.5 FOR PROSTHETIC HEART VALVE REPLACEMENT 2.5 - 3.5 RECURRENT THROMBOSIS Performed By: #### P T #### [facility] [address] [address] [address] Shruti Roper PT Coag (PPP) [Time] 11.2 s Normal 9.0-11.6 [facility] Comment on above: Performed By: #### PT #### [facility] [address] [address] [address] Shruti Roper XR CHEST 2 Von 06-24-2022 XR CHEST 2 V EXAM: CHEST 2 VIEWS HISTORY: SHORTNESS OF BREATH TECHNIQUE: PA and lateral views chest. COMPARISON: 05/07/2022. FINDINGS: The lungs are hyperinflated. There is no focal lung consolidation, pleural effusion or pneumothorax. There are small calcified left lung granulomas. Pulmonary vasculature is within normal limits. There is aortic atherosclerosis and stable cardiomegaly. Left pectoral dual-chamber cardiac pacemaker device is seen. IMPRESSION: 1. Pulmonary hyperinflation without acute cardiopulmonary disease. 2. Atherosclerosis and stable cardiomegaly with cardiac pacemaker. Negative for pulmonary edema. Electronically authenticated by: SCOTT JOHNSON Date: 2022-06-24 10:36 Normal [facility] XR CHEST 2 Von 05-07-2022 XR CHEST 2 V EXAMINATION: XR CHES T 2 V HISTORY: Bradycardia COMPARISON: 03/28/2022 TECHNIQUE: PA and lateral FINDINGS: LUNGS: No significant pulmonary parenchymal abnormalities. VASCULATURE: No increased pulmonary vasculature. PLEURA: No pneumothorax, effusion, or pleural thickening. CARDIAC: No cardiomegaly or cardiac silhouette abnormality. MEDIASTINUM: No visible mass or adenopathy. Left pacemaker BONES: No fracture or visible bone lesion. OTHER: Negative. IMPRESSION: No acute disease. Electronically authenticated by: NICOLE THOMAS Date: 2022-05-07 15:08 Normal [facility] ECHOCARDIO M/2D COMPLETEon 1 ECHOCARDIO M/2D COMPLETE Patient: MENDOZA BARROSO Exam Date: 04/01/2022 : 1940 Gender:M Ordering : DR JULIO PATTON D.O. Admission #: [id number] Family : DR BLAINE FATIMA M.D. Order #: [id number] CLICK HERE TO VIEW EXAM ECHOCARDIOGRAM REPORT PROCEDURE: CARDIO PULMONARY ECHOCARDIO M/2D COMP INDICATIONS: Atrial fibrillation, arteriosclerotic heart disease, hypertension COMPARISON: None. DESCRIPTION: COMPLETE ECHOCARDIOGRAM Real-time transthoracic echocardiography with 2D, M-mode, spectral and color flow Doppler performed. QUALITY: Technical quality was adequate. LEFT VENTRICLE: Normal chamber size. Normal left ventricular wall thickness. LV EF: Global left ventricular systolic function is normal; visually estimated ejection fraction is 55 to 60%. No significant wall motion abnormalities. DIASTOLIC: Not adequately assessed due to heart rhythm. ATRIAL SEPTUM: Color-flow Doppler suggests a possible patent foramen ovale. LEFT ATRIUM: Mild dilatation. RIGHT ATRIUM: Moderate dilatation. RIGHT VENTRICLE: Normal chamber size. Normal systolic function. TRICUSPID VALVE: Normal mobility and thickness. No stenosis with trivial regurgitation. Doppler studies reveal moderately (45-60) elevated right sided pressures. RVSP 47 mmHg MITRAL VALVE: Mildly thickened with normal mobility. There is no mitral annular calcification. Mild mitral regurgitation. AORTIC VALVE: Normal trileaflet appearance. Thickened aortic valve. Normal leaflet mobility. No evidence of aortic valve stenosis. No aortic regurgitation. AORTIC ROOT: Normal diameter and appearance. Ascending aorta is normal in size. PULMONIC VALVE: Normal thickness and mobility. No stenosis. Trivial regurgitation. PERICARDIUM: Trivial pericardial effusion. IVC: Collapses with inspirations. IVC is mildly dilated (2.3 cm) CONCLUSION: Global left ventricular systolic function is normal; visually estimated ejection fraction is 55 to 60%. No significant wall motion abnormalities. Biatrial enlargement. The right ventricle is normal in size and systolic function. Moderately elevated right-sided pressures. No significant valvular abnormalities. Color-flow Doppler suggests a possible patent foramen ovale. Adult Echocardiography Procedure Report Left Ventricle LVEDD (3.7 - 5.6 cm): 4.60 cm LVESD (2.2 - 4.0 cm): 2.79 cm LVIVS thickness (0.6 - 1.2 cm): 0.97 cm LVPW thickness (0.5 - 1.0 cm): 1.01 cm LVOT Max Gradient: 2.30 mm[Hg], 2.51 mm[Hg] Peak Velocity (LVOT): 0.76 m/s, 0.79 m/s Mean Velocity (LVOT): 0.50 m/s, 0.53 m/s LVOT Diameter 2.15 cm Left Ventricular Ejection Fraction: 69.89 %, 69.89 % Left Atrium LA Volume Index (2D A2C): 81.41 ml, 81.41 ml Left Atrium Systolic Dimension: 4.06 cm Mitral Valve Mitral Valve E-Wave Peak Velocity: 1.20 m/s Right Ventricle Aorta AO Root Diam: 3.03 cm Ascending Ao Diam: 2.97 cm Aortic Valve AoV Area (Peak Armand): 2.16 cm2, 2.10 cm2, 2.23 cm2 AoV Area (VTI): 2.10 cm2, 1.99 cm2, 2.22 cm2 Peak Velocity(Antegrade Flow): 1.31 m/s, 1.29 m/s Peak Gradient(Antegrade Flow): 6.84 mm[Hg], 6.62 mm[Hg] Mean Velocity(Antegrade Flow): 0.81 m/s, 0.85 m/s Mean Gradient(Antegrade Flow): 3.08 mm[Hg], 3.28 mm[Hg] Velocity Time Integral: 29.83 cm, 29.99 cm Tricuspid Valve Peak Velocity (Regurgitant Flow): 3.15 m/s, 3.06 m/s Pulmonic Valve Peak Velocity: 0.63 m/s, 0.64 m/s Peak Gradient: 1.61 mm[Hg], 1.66 mm[Hg] Right Atrium Right Atrium Systolic Pressure: 89.87 ml, 89.87 ml Dictated by: Scotty Arguelles M.D. on 04/02/2022 at 14:41 Approved by: Scotty Arguelles M.D. on 04/02/2022 at 14:45 Normal [facility] PROF CHEM 8 (BAS METB)on Anion gap [Moles/Vol] 11.3 mmol/L Normal [facility] Comment on above: Performed By: #### BMP ####[facility] ital [address] [address]Dr. Shruti Roper Calcium [Mass/Vol] 8.8 mg/dL Normal 8.5-10.1 [facility] Comment on above: Performed By: #### BMP ####[facility] ital [address] [address]Dr. Shruti Roper Chloride [Moles/Vol] 103 mmol/L Normal 98-107 [facility] Comment on above: Performed By: #### BMP ####[facility] ital [address] [address]Dr. Shruti Roper CO2 [Moles/Vol] 30.7 mmol/L Normal 21.0-32.0 [facility] Comment on above: Performed By: #### BMP ####[facility] ital [address] [address]Dr. Shruti Roper Creatinine [Mass/Vol] 1.28 mg/dL Normal 0.70-1.30 [facility] Comment on above: Performed By: #### BMP ####[facility] ital [address] [address]Dr. Shruti Roper EGFR-AF SERBIAN >60 Normal >=60 [facility] Comment on above: Performed By: #### BMP ####[facility] ital [address] [address]Dr. Shruti Roper EGFR-NON AF SERBIAN 54 mL/min/1.73m2 Critically low >=60 [facility] Comment on above: Performed By: #### BMP ####[facility] ital [address] [address]Dr. Shruti Roper Glucose [Mass/Vol] 106 mg/dL Normal 74-106 [facility] Comment on above: Performed By: #### BMP ####[facility] ital [address] [address]Dr. Shruti Roper Potassium [Moles/Vol] 4.0 mmol/L Normal 3.5-5.1 [facility] Comment on above: Performed By: #### BMP ####[facility] ital [address] [address]DrLelo Roper Sodium [Moles/Vol] 141 mmol/L Normal 136-145 [facility] Comment on above: Performed By: #### BMP ####[facility] ital [address] [address]Dr. Shruti Roper Urea nitrogen [Mass/Vol] 18.0 mg/dL Normal 7.0-18.0 [facility] Comment on above: Performed By: #### BMP ####[facility] ital [address] [address]Dr. Shruti Roper Urea nitrogen/Creati nine [Mass ratio] 14.1 mg/mg Normal [facility] Comment on above: Performed By: #### BMP ####[facility] ital [address] [address]Dr. Shruti Roper BNPon 03-28-2022 Natriuretic peptide B (Bld) [Mass/Vol] 1722.0 pg/mL Normal <=1,800.0 [facility] Comment on above: Performed By: #### CMP, BNP, TSH ####[facility] [address] [place], [place] [address]Dr. Shruti Roper CBC AUTO DIFFon 03-28-2022 BASO # 0.0 103/ul Normal 0.0-0.1 [facility] Comment on above: Performed By: #### CBC #### [facility] [address] [address] [address] Shruti Roper Basophils/100 WBC (Bld) 0.4 % Normal 0.2-2.0 [facility] Comment on above: Performed By: #### CBC #### [facility] [address] [address] [address] Shruti Roper EO # 0.2 103/ul Normal 0.0-0.7 [facility] Comment on above: Performed By: #### CBC #### [facility] [address] [address] [address] Shruti Roper Eosinophils/100 WBC (Bld) 2.4 % Normal 0.9-7.0 [facility] Comment on above: Performed By: #### CBC #### [facility] [address] [place] [address] Dr. Shruti Roper Erythrocyte distribution width (RBC) [Ratio] 14.1 % Normal 11.0-15.0 [facility] Comment on above: Performed By: #### CBC #### [facility] [address] [place] [address] Dr. Shruti Roper Hematocrit (Bld) [Volume fraction] 43.1 % Normal 42.0-54.0 [facility] Comment on above: Performed By: #### CBC #### [facility] [address] [place] [address] Dr. Shruti Roper Hemoglobin (Bld) [Mass/Vol] 13.4 g/dL Critically low 14.0-18.0 [facility] Comment on above: Performed By: #### CBC #### [facility] [address] [place] [address] Dr. Shruti Roper IG # 0.03 10e3/ul Normal 0.00-0.03 [facility] Comment on above: Performed By: #### CBC #### [facility] [address] [place] [address] Dr. Shruti Roper IG % 0.4 % Normal 0.0-0.5 [facility] Comment on above: Performed By: #### CBC #### [facility] [address] [place] [address] Dr. Shruti Roper LYMPH # 1.8 103/ul Normal 1.2-3.8 [facility] Comment on above: Performed By: #### CBC #### [facility] [address] [place] [address] Dr. Shruti Roper Lymphocytes/100 WBC (Bld) 25.6 % Normal 20.5-60.0 [facility] Comment on above: Performed By: #### CBC #### [facility] [address] [place] [address] Dr. Shruti Roper MANUAL DIFF REQ NO Normal [facility] Comment on above: Performed By: #### CBC #### [facility] [address] [address] [address] Shruti Roper MCH (RBC) [Entitic mass] 26.3 pg Normal 25.9-34.0 [facility] Comment on above: Performed By: #### CBC #### [facility] [address] [address] [address] Shruti Roper MCHC (RBC) [Mass/Vol] 31.1 g/dL Normal 29.9-35.2 [facility] Comment on above: Performed By: #### CBC #### [facility] [address] [address] [address] Shruti Roper MCV (RBC) [Entitic vol] 84.5 fL Normal 80.0-94.0 [facility] Comment on above: Performed By: #### CBC #### [facility] [address] [place] [address] Dr. Shruti Roper MONO # 0.7 103/ul Normal 0.3-0.8 [facility] Comment on above: Performed By: #### CBC #### [facility] [address] [place] [address] Dr. Shruti Roper Monocytes/100 WBC (Bld) 9.8 % Normal 1.7-12.0 [facility] Comment on above: Performed By: #### CBC #### [facility] [address] [address] [address] Shruti Roper NEUT # 4.3 103/ul Normal 1.4-6.5 [facility] Comment on above: Performed By: #### CBC #### [facility] [address] [place] [address] Dr. Shruti Roper Neutrophils/100 WBC (Bld) 61.4 % Normal 43.0-75.0 [facility] Comment on above: Performed By: #### CBC #### [facility] [address] [place] [address] Dr. Shruti Roper Platelet mean volume (Bld) [Entitic vol] 11.8 fL Normal 9.5-13.5 [facility] Comment on above: Performed By: #### CBC #### [facility] [address] [address] [address] Shruti Roper PLT 206 103/ul Normal 150-450 [facility] Comment on above: Performed By: #### CBC #### [facility] [address] [address] [address] Shruti Roper RBC 5.10 106/ul Normal 4.70-6.10 [facility] Comment on above: Performed By: #### CBC #### [facility] [address] [place] [address] Dr. Shruti Roper WBC 7.0 103/ul Normal 4.0-11.0 [facility] Comment on above: Performed By: #### CBC #### [facility] [address] [place] [address] Dr. Shruti Roper PROF 14(COMP METB)on 022 Albumin [Mass/Vol] 3.1 g/dL Critically low 3.4-5.0 [facility] Comment on above: Performed By: #### CMP, BNP, TSH #### [facility] [address] [place] [address] Dr. Shruti Roper Albumin/Globuli n [Mass ratio] 0.9 {ratio} Normal [facility] Comment on above: Performed By: #### CMP, BNP, TSH #### [facility] [address] [place] [address] Dr. Shruti Roper ALP [Catalytic activity/Vol] 73 U/L Normal 46-116 [facility] Comment on above: Performed By: #### CMP, BNP, TSH #### [facility] [address] [place] [address] Dr. Shruti Roper ALT [Catalytic activity/Vol] 13 U/L Critically low 16-63 [facility] Comment on above: Performed By: #### CMP, BNP, TSH #### [facility] [address] [place] [address] Dr. Shruti Roper Anion gap [Moles/Vol] 8.3 mmol/L Normal [facility] Comment on above: Performed By: #### CMP, BNP, TSH #### [facility] [address] [address] [address] Shruti Roper AST [Catalytic activity/Vol] 13 U/L Critically low 15-37 [facility] Comment on above: Performed By: #### CMP, BNP, TSH #### [facility] [address] [address] [address] Shruti Roper Bilirubin [Mass/Vol] 1.1 mg/dL Critically high 0.2-1.0 [facility] Comment on above: Performed By: #### CMP, BNP, TSH #### [facility] [address] [address] [address] Shruti Roper Calcium [Mass/Vol] 8.6 mg/dL Normal 8.5-10.1 [facility] Comment on above: Performed By: #### CMP, BNP, TSH #### [facility] [address] [place] [address] Dr. Shruti Roper Chloride [Moles/Vol] 107 mmol/L Normal 98-107 [facility] Comment on above: Performed By: #### CMP, BNP, TSH #### [facility] [address] [address] [address] Shruti Roper CO2 [Moles/Vol] 31.7 mmol/L Normal 21.0-32.0 [facility] Comment on above: Performed By: #### CMP, BNP, TSH #### [facility] [address] [place] [address] Dr. Shruti Roper Creatinine [Mass/Vol] 1.13 mg/dL Normal 0.70-1.30 [facility] Comment on above: Performed By: #### CMP, BNP, TSH #### [facility] [address] [address] [address] Shruti Roper EGFR-AF SERBIAN >60 Normal >=60 [facility] Comment on above: Performed By: #### CMP, BNP, TSH #### [facility] [address] [address] [address] Shruti Roper EGFR-NON AF SERBIAN >60 Normal >=60 [facility] Comment on above: Performed By: #### CMP, BNP, TSH #### [facility] [address] [address] [address] Shruti Roper Globulin (S) [Mass/Vol] 3.4 g/dL Normal [facility] Comment on above: Performed By: #### CMP, BNP, TSH #### [facility] [address] [address] [address] Shruti Roper Glucose [Mass/Vol] 145 mg/dL Critically high 74-106 [facility] Comment on above: Performed By: #### CMP, BNP, TSH #### [facility] [address] [address] [address] Shruti Roper Potassium [Moles/Vol] 4.0 mmol/L Normal 3.5-5.1 [facility] Comment on above: Performed By: #### CMP, BNP, TSH #### [facility] [address] [place] [address] Dr. Shruti Roper Protein [Mass/Vol] 6.5 g/dL Normal 6.4-8.2 [facility] Comment on above: Performed By: #### CMP, BNP, TSH #### [facility] [address] [place] [address] Dr. Shruti Roper Sodium [Moles/Vol] 143 mmol/L Normal 136-145 [facility] Comment on above: Performed By: #### CMP, BNP, TSH #### [facility] [address] [place] [address] Dr. Shruti Roper Urea nitrogen [Mass/Vol] 17.0 mg/dL Normal 7.0-18.0 [facility] Comment on above: Performed By: #### CMP, BNP, TSH #### [facility] [address] [place] [address] Dr. Shruti Roper Urea nitrogen/Creati nine [Mass ratio] 15.0 mg/mg Normal [facility] Comment on above: Performed By: #### CMP, BNP, TSH #### [facility] [address] [place] [address] Dr. Shruti Roper TSHon 03-28-2022 TSH 2.294 uIU/mL Normal 0.358-3.74 0 [facility] Comment on above: Performed By: #### CMP, BNP, TSH #### [facility] [address] [address] [address] Shruti Roper XR CHEST 2 Von 03-28-2022 XR CHEST 2 V EXAM: CHEST 2 VIEWS HISTORY: Paroxysmal atrial fibrillation TECHNIQUE: PA and lateral views chest. COMPARISON: None. FINDINGS: There are tiny bilateral pleural effusions. No focal consolidation or pneumothorax. There is mild scarring or pleural thickening at the lung apices. Pulmonary vasculature is within normal limits. There is aortic atherosclerosis and mild cardiomegaly. Small calcified left midlung condylomas noted. IMPRESSION: 1. Tiny bilateral pleural effusions. No focal lung consolidation. 2. Atherosclerosis and mild cardiomegaly. Negative for pulmonary edema. Electronically authenticated by: SCOTT JOHNSON Date: 2022-03-28 13:14 Normal [facility] PROF CHEM 8 (BAS METB)on Anion gap [Moles/Vol] 10.0 mmol/L Normal [facility] Comment on above: Performed By: #### BMP ####[facility] ital [id number] [address]Dr. Shruti Roper Calcium [Mass/Vol] 8.8 mg/dL Normal 8.5-10.1 [facility] Comment on above: Performed By: #### BMP ####[facility] ital [id number] [address]DrLelo Roper Chloride [Moles/Vol] 105 mmol/L Normal 98-107 [facility] Comment on above: Performed By: #### BMP ####[facility] ital [id number] [address]DrLelo Roper CO2 [Moles/Vol] 30.6 mmol/L Normal 21.0-32.0 [facility] Comment on above: Performed By: #### BMP ####[facility] ital [id number] [address]DrLelo Roper Creatinine [Mass/Vol] 1.24 mg/dL Normal 0.70-1.30 [facility] Comment on above: Performed By: #### BMP ####[facility] ital [id number] [id number]. Shruti Roper EGFR-AF SERBIAN >60 Normal >=60 [facility] Comment on above: Performed By: #### BMP ####[facility] [address] [id number]. Shruti Roper EGFR-NON AF SERBIAN 56 mL/min/1.73m2 Critically low >=60 [facility] Comment on above: Performed By: #### BMP ####[facility] [address] [address]Dr. Shruti Roper Glucose [Mass/Vol] 122 mg/dL Critically high 74-106 [facility] Comment on above: Performed By: #### BMP ####[facility] [address] [address]Dr. Shruti Roper Potassium [Moles/Vol] 4.6 mmol/L Normal 3.5-5.1 [facility] Comment on above: Performed By: #### BMP ####[facility] [address] [address]Dr. Shruti Roper Sodium [Moles/Vol] 141 mmol/L Normal 136-145 [facility] Comment on above: Performed By: #### BMP ####[facility] [address] [address]Dr. Shruti Roper Urea nitrogen [Mass/Vol] 18.0 mg/dL Normal 7.0-18.0 [facility] Comment on above: Performed By: #### BMP ####[facility] [address] [address]Dr. Shruti Roper Urea nitrogen/Creati nine [Mass ratio] 14.5 mg/mg Normal [facility] Comment on above: Performed By: #### BMP ####[facility] [address] [address]Dr. Shruti Roper US CAROTID ART BILon 022 US CAROTID ART LUNA EXAMINATION: US CAROTID ART LUNA HISTORY: Bilateral carotid artery occlusion COMPARISON: No relevant comparison available. TECHNIQUE: Duplex Doppler ultrasound analysis of carotid and vertebral arteries. . Bilateral carotid arterial duplex examination was performed using B-mode, color flow and spectral analysis. Carotid stenosis is reported according to validated velocity parameters, similar to NASCET criteria. FINDINGS: RIGHT CAROTID ARTERY Minimal plaque in the bulb Subclavian: PSV: 155.4 cm/s cm/s EDV: 4.4 cm/s cm/s CCA: Prox: PSV: 90.4 cm/s cm/s EDV: 13.7 cm/s cm/s Mid: PSV: 69.8 cm/s cm/s EDV: 10.2 cm/s cm/s Distal: PSV: 50.3 cm/s cm/s EDV: 8.9 cm/s cm/s BULB: PSV: 41.8 cm/s cm/s EDV: 6.0 cm/s cm/s ICA: Prox: PSV: 46.1 cm/s cm/s EDV: 6.9 cm/s cm/s Mid: PSV: 33.9 cm/s cm/s EDV: 4.3 cm/s cm/s Distal: PSV: 89.2 cm/s cm/s EDV: 16.7 cm/s cm/s ECA: PSV: 80.1 cm/s cm/s EDV: 0.0 cm/s cm/s VERTEBRAL: PSV: 80.1 cm/s cm/s EDV: 12.8 cm/s cm/s ICA/CCA ratio: PSV: 1.8 EDV: 1.9 LEFT CAROTID ARTERY Minimal plaque in the bulb Subclavian: PSV: 190.4 cm/s cm/s EDV: 6.7 cm/s CCA: Prox: PSV: 75.5 cm/s cm/s EDV: 7.5 cm/s Mid: PSV: 53.1 cm/s cm/s EDV: 9.0 cm/s Distal: PSV: 48.8 cm/s cm/s EDV: 6.1 cm/s BULB: PSV: 64.2 cm/s cm/s EDV: 0.0 cm/s ICA: Prox: PSV: 40.3 cm/s cm/s EDV: 9.0 cm/s Mid: PSV: 79.8 cm/s cm/s EDV: 14.9 cm/s Distal: PSV: 82.0 cm/s cm/s EDV: 21.5 cm/s ECA: PSV: 82.0 cm/s cm/s EDV: 5.1 cm/s VERTEBRAL: PSV: 63.3 cm/s cm/s EDV: 12.7 cm/s ICA/CCA ratio: PSV: 1.7 EDV: 3.5 Other: 1.9 cm right thyroid cystic nodule peripheral soft tissue IMPRESSION: 0-49% flow stenosis in the internal carotid arteries Spectral Doppler US Thresholds (Reference: Clint EG, et al. Radiology 2000; 214:247-252) Stenosis (%) PSV (cm/sec) VICA/VCCA 0-49 <150 <2.5 50-69 150-225 2.5-4.0 >70 >225 >4.0 Electronically authenticated by: NICOLE THOMAS Date: 2022-01-22 06:43 Normal [facility] XR LSPINE 2_3 VIEWSon 2021 XR LSPINE 2_3 VIEWS EXAMINATION: XR LSPINE 2_3 VIEWS HISTORY: Low back pain COMPARISON: No relevant comparison available. FINDINGS: BONES: 2 mm retrolisthesis of L2 on L3 and L3 on L4. Mild degenerative spondylosis. [id number] facet osteoarthropathy. DISC SPACES: Normal. No significant disc height narrowing, subluxation, or endplate abnormality. PARASPINOUS: Negative. No paraspinous abnormality is seen. OTHER: Vascular calcification IMPRESSION: [id number] degenerative changes Electronically authenticated by: NICOLE THOMAS Date: 2021-12-02 20:57 Normal [facility] BASIC METABOLIC PANELon 12-0 Calcium mass conc 9.0 mg/dL Normal 8.6-10.3 [facility] Comment on above: Order Comment: No: Do not add to previou s draw Performed By: #### 0 2451, 55005, 51593 ####[facility] Chloride molar conc 104 mmol/L Normal 98-107 [facility] Comment on above: Order Comment: No: Do not add to previou s draw Performed By: #### 0 0071, 53347, 01385 ####[facility] [place] [address], [facility] CO2 molar conc 25 mmol/L Normal 21-31 [facility] Comment on above: Order Comment: No: Do not add to previou s draw Performed By: #### 0 0071, 64686, 41436 ####[facility] [place] [address], [facility] Creatinine mass conc 1.02 mg/dL Normal 0.70-1.30 [facility] Comment on above: Order Comment: No: Do not add to previou s draw Performed By: #### 0 0071, , 03409 ####[facility] [place] [address], [facility] GFR/1.73 sq M predicted among blacks MDRD vol rate/area (S/P/Bld) mL/min/{1.73_m2} Normal >60 [facility] Comment on above: Order Comment: No: Do not add to previou s draw Result Comment: Calc ulation may not be valid for patients over 70 years Performed By: #### 0 0071, , 33047 ####[facility] [facility] [place] [address], [facility] GFR/1.73 sq M predicted among non-blacks MDRD vol rate/area (S/P/Bld) mL/min/{1.73_m2} Normal >60 [facility] Comment on above: Order Comment: No: Do not add to previou s draw Result Comment: Calc ulation may not be valid for patients over 70 years Performed By: #### 0 0071, , 60488 ####[facility] [place] [address], [facility] Glucose mass conc 123 mg/dL High 70-100 [facility] Comment on above: Order Comment: No: Do not add to previou s draw Performed By: #### 0 0071, 08282, 56298 ####[facility] [facility].[address] Potassium molar conc 3.9 mmol/L Normal 3.5-5.1 [facility] Comment on above: Order Comment: No: Do not add to previou s draw Performed By: #### 0 0071, 89096, 65058 ####[facility] [facility].[address] Sodium molar conc 137 mmol/L Normal 136-145 [facility] Comment on above: Order Comment: No: Do not add to previou s draw Performed By: #### 0 0071, , 66668 ####[facility] [facility].[address] Urea nitrogen mass conc 14 mg/dL Normal 7-25 [facility] Comment on above: Order Comment: No: Do not add to previou s draw Performed By: #### 0 70, , 66260 ####[facility] [facility].[address] CBC W/DIFFon 06-06-2018 ABS BASOPHILS 0.0 10*3/uL Normal 0.0-0.2 [facility] Comment on above: Order Comment: No: Do not add to previou s draw Performed By: #### 0 1, , 22360 ####[facility] [facility].[address] ABS IMM GRANS 0.0 10*3/uL Normal 0.0-0.2 [facility] Comment on above: Order Comment: No: Do not add to previou s draw Performed By: #### 0 0071, , 27173 ####[facility] [facility].[address] ABS NEUTROPHILS 4.4 10*3/uL Normal 1.6-7.6 [facility] Comment on above: Order Comment: No: Do not add to previou s draw Performed By: #### 0 0071, , 17477 ####[facility] [place] [address], [facility] Basophils Auto #/vol (Bld) 0.4 % Normal 0.0-1.0 [facility] Comment on above: Order Comment: No: Do not add to previou s draw Performed By: #### 0 007, , 92768 ####[facility] [place] [address], [facility] Eosinophils Auto #/vol (Bld) 0.2 10*3/uL Normal 0.0-0.5 [facility] Comment on above: Order Comment: No: Do not add to previou s draw Performed By: #### 0 70, , 94313 ####[facility] [place] [address], [facility] Eosinophils/100 WBC Auto (Bld) 1.9 % Normal 0.0-6.0 [facility] Comment on above: Order Comment: No: Do not add to previou s draw Performed By: #### 0 70, , 94679 ####[facility] Erythrocyte distribution width Auto Ratio (RBC) 12.9 % Normal 11.5-15.0 [facility] Comment on above: Order Comment: No: Do not add to previou s draw Performed By: #### 0 007, , 15867 ####[facility] Hematocrit Auto Volume Fraction (Bld) 39.2 % Normal 39.0-50.0 [facility] Comment on above: Order Comment: No: Do not add to previou s draw Performed By: #### 0 007, , 39211 ####[facility] Hemoglobin mass conc (Bld) 13.2 g/dL Normal 13.0-17.0 [facility] Comment on above: Order Comment: No: Do not add to previou s draw Performed By: #### 0 0071, 87756, 46063 ####[facility] [place] [address], [facility] IMMATURE GRANS 0.1 % Normal 0.0-1.0 [facility] Comment on above: Order Comment: No: Do not add to previou s draw Performed By: #### 0 0071, 85789, 12693 ####[facility] Lymphocytes Auto #/vol (Bld) 4.1 10*3/uL High 1.2-4.0 [facility] Comment on above: Order Comment: No: Do not add to previou s draw Performed By: #### 0 007, , 63985 ####[facility] Lymphocytes/100 WBC Auto (Bld) 43.0 % Normal 20.0-45.0 [facility] Comment on above: Order Comment: No: Do not add to previou s draw Performed By: #### 0 0071, , 44157 ####[facility] [facility].[address] MCH Auto Entitic mass (RBC) 27.6 pg Normal 27.0-33.0 [facility] Comment on above: Order Comment: No: Do not add to previou s draw Performed By: #### 0 0071, , 70829 ####[facility] MCHC Auto mass conc (RBC) 33.7 g/dL Normal 32.0-35.0 [facility] Comment on above: Order Comment: No: Do not add to previou s draw Performed By: #### 0 0071, 22345, 14604 ####[facility] [facility].[address] MCV Auto Entitic volume (RBC) 82.0 fL Normal 82.0-98.0 [facility] Comment on above: Order Comment: No: Do not add to previou s draw Performed By: #### 0 007, , 37383 ####[facility] [facility].[address] Monocytes Auto #/vol (Bld) 0.8 10*3/uL Normal 0.1-1.0 [facility] Comment on above: Order Comment: No: Do not add to previou s draw Performed By: #### 0 007, , 35135 ####[facility] [facility].[address] MONOS 8.3 % Normal 5.0-12.0 [facility] Comment on above: Order Comment: No: Do not add to previou s draw Performed By: #### 0 007, , 45972 ####[facility] [facility].[address] Neutrophils/100 WBC Auto (Bld) 46.3 % Normal 40.0-72.0 [facility] Comment on above: Order Comment: No: Do not add to previou s draw Performed By: #### 0 0071, , 06899 ####[facility] [facility].[address] Nucleated RBC/100 WBC Ratio (Bld) 0 % Normal 0-0 [facility] Comment on above: Order Comment: No: Do not add to previou s draw Performed By: #### 0 007, , 55054 ####[facility] [place] [address], [facility] PLAT CNT 239 10*3/uL Normal 150-400 [facility] Comment on above: Order Comment: No: Do not add to previou s draw Performed By: #### 0 0071, 72145, 50589 ####[facility] [place] [address], [facility] RBC Auto #/vol (Bld) 4.78 10*6/uL Normal 4.20-5.70 [facility] Comment on above: Order Comment: No: Do not add to previou s draw Performed By: #### 0 0071, 78210, 29055 ####[facility] [place] [address], [facility] WBC Auto #/vol (Bld) 9.54 10*3/uL Normal 4.00-10.60 [facility] Comment on above: Order Comment: No: Do not add to previou s draw Performed By: #### 0 0071, 88621, 00815 ####[facility] BASIC METABOLIC PANELon 12-0 Calcium mass conc 8.7 mg/dL Normal 8.6-10.3 [facility] Comment on above: Order Comment: No: Do not add to previou s draw Performed By: #### 0 0071, , 88133 ####[facility] [place] [address], [facility] Chloride molar conc 104 mmol/L Normal 98-107 [facility] Comment on above: Order Comment: No: Do not add to previou s draw Performed By: #### 0 0071, , 20181 ####[facility] [place] [address], [facility] CO2 molar conc 30 mmol/L Normal 21-31 [facility] Comment on above: Order Comment: No: Do not add to previou s draw Performed By: #### 0 0071, , 52585 ####[facility] [place] [address], [facility] Creatinine mass conc 0.99 mg/dL Normal 0.70-1.30 [facility] Comment on above: Order Comment: No: Do not add to previou s draw Performed By: #### 0 0071, 06999, 96081 ####[facility] [place] [address], [facility] GFR/1.73 sq M predicted among blacks MDRD vol rate/area (S/P/Bld) mL/min/{1.73_m2} Normal >60 [facility] Comment on above: Order Comment: No: Do not add to previou s draw Result Comment: Calc ulation may not be valid for patients over 70 years Performed By: #### 0 0071, , 13008 ####[facility] [facility] [place] [address], [facility] GFR/1.73 sq M predicted among non-blacks MDRD vol rate/area (S/P/Bld) mL/min/{1.73_m2} Normal >60 [facility] Comment on above: Order Comment: No: Do not add to previou s draw Result Comment: Calc ulation may not be valid for patients over 70 years Performed By: #### 0 0071, , 35433 ####[facility] [facility] [place] [address], [facility] [facility] Glucose mass conc 112 mg/dL High 70-100 [facility] Comment on above: Order Comment: No: Do not add to previou s draw Performed By: #### 0 0071, 65580, 89529 ####[facility] [facility] [place] [address], [facility] Potassium molar conc 3.9 mmol/L Normal 3.5-5.1 [facility] Comment on above: Order Comment: No: Do not add to previou s draw Performed By: #### 0 0071, 38144, 71381 ####[facility], [place] [id number] [place] [address] Sodium molar conc 138 mmol/L Normal 136-145 [facility] Comment on above: Order Comment: No: Do not add to previou s draw Performed By: #### 0 0071, 69278, 67865 ####[facility] Urea nitrogen mass conc 14 mg/dL Normal 7-25 [facility] Comment on above: Order Comment: No: Do not add to previou s draw Performed By: #### 0 007, , 82206 ####[facility] CBC COMPLETE BLOOD COUNTon 1 08-06-2017 Erythrocyte distribution width Auto Ratio (RBC) 13.0 % Normal 11.5-15.0 [facility] Comment on above: Order Comment: No: Do not add to previou s draw Performed By: #### 0 70, , 61153 ####[facility] Hematocrit Auto Volume Fraction (Bld) 40.4 % Normal 39.0-50.0 [facility] Comment on above: Order Comment: No: Do not add to previou s draw Performed By: #### 0 70, , 69386 ####[facility] Hemoglobin mass conc (Bld) 13.3 g/dL Normal 13.0-17.0 [facility] Comment on above: Order Comment: No: Do not add to previou s draw Performed By: #### 0 0071, , 29699 ####[facility] [place] [address], [facility] MCH Auto Entitic mass (RBC) 27.3 pg Normal 27.0-33.0 [facility] Comment on above: Order Comment: No: Do not add to previou s draw Performed By: #### 0 70, , 60838 ####[facility] MCHC Auto mass conc (RBC) 32.9 g/dL Normal 32.0-35.0 [facility] Comment on above: Order Comment: No: Do not add to previou s draw Performed By: #### 0 70, , 83940 ####[facility] MCV Auto Entitic volume (RBC) 83.0 fL Normal 82.0-98.0 [facility] Comment on above: Order Comment: No: Do not add to previou s draw Performed By: #### 0 70, , 56612 ####[facility] Nucleated RBC/100 WBC Ratio (Bld) 0 % Normal 0-0 [facility] Comment on above: Order Comment: No: Do not add to previou s draw Performed By: #### 0 70, , 83077 ####[facility] PLAT CNT 233 10*3/uL Normal 150-400 [facility] Comment on above: Order Comment: No: Do not add to previou s draw Performed By: #### 0 70, , 37997 ####[facility] RBC Auto #/vol (Bld) 4.87 10*6/uL Normal 4.20-5.70 [facility] Comment on above: Order Comment: No: Do not add to previou s draw Performed By: #### 0 70, , 74169 ####[facility] WBC Auto #/vol (Bld) 8.97 10*3/uL Normal 4.00-10.60 [facility] Comment on above: Order Comment: No: Do not add to previou s draw Performed By: #### 0 0071, 57468, 44071 ####[address] Cardiovascular Lab Reporton 06-05-2018 Cardiovascular Lab Report [facility] MR #: [id number] of Physician: Gunnar Wallace M.D.Division of Service Date: 06/04/2018Cardiology Birthdate: [birth year]Adult Cardiovascular Room #: 3CD [id number] [id number] Fax Cardiovascular Laboratory ReportMrLelo Barroso is a patient [place]. He has had problems withatrial fibrillation. I saw him last on May 27. He has been onEliquis for significant period of time and he was on metoprolol.He was in controlled ventricular response, but he was very symptomatic withhis atrial fibrillation and I discussed with him cardioversion andantiarrhythmic therapy, although I did tell him due to his underlyingconduction disease that there is concern for bradycardia and he may requireat some point pacing, and we had also talked about options of Multaq oramiodarone. He had been on Eliquis for continuous period of time. Consentwas obtained. He was given conscious sedation. A single 200 joule shockconverted him to sinus rhythm with a first-degree AV block.We will bring him in the hospital, start him on sotalol 40 mg b.i.d. Hewill be monitored for QT behavior and also for any bradycardia. I didmention if he could not tolerate antiarrhythmic, our plan then would be todiscontinue the antiarrhythmic, leave him anticoagulated 4-6 weeks and thenstop anticoagulation paste, place a pacemaker and put him back onantiarrhythmic drugs.There were no apparent complications.Electronically Signed by:Gunnar Wallace M.D. 06/09/2018 09:02 A Gunnar Wallace M.D.Date Dict: 06/04/2018/12:56 P/Gunnar Walalce M.D.Date Trans: 06/05/2018 03:36 [id number]: Julio Patton D.O. [address] [place] [id number] Normal [facility] MAGNESIUM BLOODon 06-05-2018 Magnesium mass conc 2.1 mg/dL Normal 1.9-2.7 [facility] Comment on above: Order Comment: No: Do not add to previou s draw Performed By: #### 0 0071, 12685, 30311 ####[facility] PHOSPHORUS BLOODon 8 Phosphate mass conc 3.0 mg/dL Normal 2.5-5.0 [facility] Comment on above: Order Comment: No: Do not add to previou s draw Performed By: #### 0 0071, 24630, 94351 ####[facility] [facility].[address] History and Physicalon 06-04 History and Physical MR#: [id number] Mendoza Barroso Admitted: 06/04/2018 Date of : 1940 Attending Physician: Xin Elliott M.D. Room #: CC Discharge Date: HISTORY AND PHYSICALCHIEF COMPLAINT: Atrial fibrillation, status post cardioversion.HISTORY OF PRESENT ILLNESS: The patient is a 77-year-old malewith a past medical history of CAD, essential hypertension, hyperlipidemia,and atrial fibrillation, who presented as a direct admit for sotaloltherapy. The patient had an elective cardioversion today. The patient iscurrently in normal sinus rhythm. Cardiology wanted him to be admitted forsotalol therapy.The patient is doing well status post cardioversion. No complaints. Thepatient denies chest pain, shortness of breath, abdominal pain, nausea,vomiting, diarrhea, or headache.REVIEW OF SYMPTOMS: All 14 review of symptoms are negative except that ismentioned in the history of present illness.ALLERGIES: Bee/stings.MEDICATIONS: Reviewed and reconciled.PAST MEDICAL HISTORY:1. CAD.2. Hypertension.3. Atrial fibrillation.4. Dyslipidemia.PAST SURGICAL HISTORY: None.SOCIAL HISTORY: The patient is a previous smoker, quit 1 year ago. Smokedfor 50 years, 1 pack per day. The patient drinks alcohol occasionally.The patient denies any illicit drug use. The patient lives with his .FAMILY HISTORY: Mother had Alzheimer disease and father during anoperation.PHYSICAL EXAMINATION: GENERAL: In no acute distress. The patient isresting comfortably in bed.EYES: Pupils are reactive to light.LUNGS: Clear to auscultation bilaterally. No wheezing, rhonchi, or rales.CARDIOVASCULAR: Regular rate and rhythm. No murmurs, rubs, or gallops.Normal S1/S2.ABDOMEN: Soft, nontender, nondistended.EXTREMITIES: No bilateral lower extremity edema.SKIN: Warm and dry to touch.LABORATORY RESULTS: Basic metabolic panel, sodium 137, potassium 4.3,chloride 101, bicarb 27.4, BUN 17.0, glucose 131, creatinine 1.00.Complete blood count, WBC 9.1, hemoglobin 14.3, platelet 252, [id number]. EKG sinus rhythm with first-degree AV block.ASSESSMENT:1. Atrial fibrillation, status post cardioversion.2. Sotalol therapy.3. Bradycardia.4. Coronary artery disease.5. Hypertension.6. Dyslipidemia.PLAN: Admit to step-down under Med-D service. Baseline EKG showed noevidence of QTc prolongation. We will start the patient on sotalol 40 mgp.o. b.i.d. We will obtain EKG after each dose of sotalol. We willmonitor for QTc prolongation and bradycardia. RCMS monitoring. We willresume home dose of Eliquis 5 mg b.i.d. Resume home medications.Electronically Signed by:Xin Elliott M.D. 06/07/2018 09:15 P __Xin Elliott M.D.Date Dict: 06/04/2018/01:34 P/Xin Elliott M.D.Date Trans: 06/04/2018 02:27 P/[id number] Normal [facility] CBC COMPLETE BLOOD COUNTon 0 12-23-2017 Erythrocyte distribution width Auto Ratio (RBC) 13.6 % Normal 11.5-15.0 [facility] Comment on above: Order Comment: No: Do not add to previou s draw Performed By: #### 0 0071, , 42842 ####[facility] Hematocrit Auto Volume Fraction (Bld) 43.2 % Normal 39.0-50.0 [facility] Comment on above: Order Comment: No: Do not add to previou s draw Performed By: #### 0 0071, 14651, 40715 ####[facility] [place] [address], [facility] Hemoglobin mass conc (Bld) 14.3 g/dL Normal 13.0-17.0 [facility] Comment on above: Order Comment: No: Do not add to previou s draw Performed By: #### 0 0071, 50584, 53643 ####[facility] [place] [address], [facility] MCH Auto Entitic mass (RBC) 27.9 pg Normal 27.0-33.0 [facility] Comment on above: Order Comment: No: Do not add to previou s draw Performed By: #### 0 0071, 01443, 60974 ####[facility] [place] [address], [facility] MCHC Auto mass conc (RBC) 33.1 g/dL Normal 32.0-35.0 [facility] Comment on above: Order Comment: No: Do not add to previou s draw Performed By: #### 0 0071, 78211, 75829 ####[facility] MCV Auto Entitic volume (RBC) 84.2 fL Normal 82.0-98.0 [facility] Comment on above: Order Comment: No: Do not add to previou s draw Performed By: #### 0 0071, 20932, 91772 ####[facility] [facility] Nucleated RBC/100 WBC Ratio (Bld) 0 % Normal 0-0 [facility] Comment on above: Order Comment: No: Do not add to previou s draw Performed By: #### 0 70, , 96870 ####[facility] [facility] PLAT CNT 223 10*3/uL Normal 150-400 [facility] Comment on above: Order Comment: No: Do not add to previou s draw Performed By: #### 0 70, , 33313 ####[facility] [facility] RBC Auto #/vol (Bld) 5.13 10*6/uL Normal 4.20-5.70 [facility] Comment on above: Order Comment: No: Do not add to previou s draw Performed By: #### 0 0071, , 17987 ####[facility] [place] [address], [facility] WBC Auto #/vol (Bld) 10.61 10*3/uL High 4.00-10.60 [facility] Comment on above: Order Comment: No: Do not add to previou s draw Performed By: #### 0 007, 60905, 63213 ####[facility] COMP METABOLIC PANELon 12-23 Albumin mass conc 3.2 g/dL Low 3.5-5.7 [facility] Comment on above: Order Comment: No: Do not add to previou s draw Performed By: #### 0 0071, 84568, 83342 ####[facility] [place] [address], [facility] ALKALINE PHOSPH 85 IU/L Normal 34-104 [facility] Comment on above: Order Comment: No: Do not add to previou s draw Performed By: #### 0 0071, 55799, 27375 ####[facility] [place] [address], [facility] ALT enzyme act/vol 15 U/L Normal 7-52 [facility] Comment on above: Order Comment: No: Do not add to previou s draw Performed By: #### 0 0071, 07943, 59447 ####[facility] [place] [address], [facility] AST enzyme act/vol 15 U/L Normal 13-39 [facility] Comment on above: Order Comment: No: Do not add to previou s draw Performed By: #### 0 0071, 86511, 50780 ####[facility] [place] [address], [facility] Bilirubin mass conc 0.8 mg/dL Normal 0.3-1.0 [facility] Comment on above: Order Comment: No: Do not add to previou s draw Performed By: #### 0 0071, 87593, 30906 ####[facility] [place] [address], [facility] Calcium mass conc 8.6 mg/dL Normal 8.6-10.3 [facility] Comment on above: Order Comment: No: Do not add to previou s draw Performed By: #### 0 0071, 42904, 18227 ####[facility] [place] [address], [facility] Chloride molar conc 105 mmol/L Normal 98-107 [facility] Comment on above: Order Comment: No: Do not add to previou s draw Performed By: #### 0 0071, 92507, 26497 ####[facility] [place] [address], [facility] CO2 molar conc 25 mmol/L Normal 21-31 [facility] Comment on above: Order Comment: No: Do not add to previou s draw Performed By: #### 0 0071, 97777, 37841 ####[facility] [place] [address], [facility] Creatinine mass conc 1.32 mg/dL High 0.70-1.30 [facility] Comment on above: Order Comment: No: Do not add to previou s draw Performed By: #### 0 0071, 30149, 92111 ####[facility] [place] [address], [facility] GFR/1.73 sq M predicted among blacks MDRD vol rate/area (S/P/Bld) mL/min/{1.73_m2} Normal >60 [facility] Comment on above: Order Comment: No: Do not add to previou s draw Result Comment: Calc ulation may not be valid for patients over 70 years Performed By: #### 0 0071, 32153, 18988 ####[facility] [place] [address], [facility] GFR/1.73 sq M predicted among non-blacks MDRD vol rate/area (S/P/Bld) 53 ml/min/1.73sq m Abnormal >60 [facility] Comment on above: Order Comment: No: Do not add to previou s draw Result Comment: Calc ulation may not be valid for patients over 70 years Performed By: #### 0 0071, 94242, 38349 ####[facility] [place] [address], [facility] Glucose mass conc 80 mg/dL Normal 70-100 [facility] Comment on above: Order Comment: No: Do not add to previou s draw Performed By: #### 0 0071, 41630, 84378 ####[facility] [place] [address], [facility] Potassium molar conc 4.4 mmol/L Normal 3.5-5.1 [facility] Comment on above: Order Comment: No: Do not add to previou s draw Performed By: #### 0 0071, 41105, 54376 ####[facility] [place] [address], [facility] Protein mass conc 5.4 g/dL Low 6.0-8.3 [facility] Comment on above: Order Comment: No: Do not add to previou s draw Performed By: #### 0 0071, 81275, 07250 ####[facility] [place] [address], [facility] Sodium molar conc 136 mmol/L Normal 136-145 [facility] Comment on above: Order Comment: No: Do not add to previou s draw Performed By: #### 0 0071, 93317, 77620 ####[facility] [place] [address], [place] Urea nitrogen mass conc 23 mg/dL Normal 7-25 [facility] Comment on above: Order Comment: No: Do not add to previou s draw Performed By: #### 0 0071, 12713, 18556 ####[facility] [place] [address], [place] MAGNESIUM BLOODon 12-23-2017 Magnesium mass conc 2.1 mg/dL Normal 1.9-2.7 [facility] Comment on above: Order Comment: No: Do not add to previou s draw Performed By: #### 0 0071, 55602, 65638 ####[facility] [facility] PHOSPHORUS BLOODon 8 Phosphate mass conc 4.5 mg/dL Normal 2.5-5.0 [facility] Comment on above: Order Comment: No: Do not add to previou s draw Performed By: #### 0 0071, 05919, 33563 ####[facility] [facility] UFH HEPARIN ASSAYon 12-24-19 18 UNFRACTIONATED HEPARIN 0.59 IU/mL Normal 0.30-0.70 [facility] Comment on above: Result Comment: Rivaroxaban and Apixaban will interfere with the anti Xa assay used tomonitor UFH and LMWH. Performed By: #### 0 0071, 31473, 81466 ####[facility] [facility] APTTon 12-22-2017 aPTT Coag time (Bld) 34.1 s Normal 25.0-35.0 [facility] Comment on above: Result Comment: ALL RESULTS MUST BE INTE RPRETED WITH RESPECT TO BLOOD DRAWING ARTIFACTOR DILUTION ERROR OF ANTICOAGULANT AT THE TIME OF SAMPLING.THE APTT SHOULD NOT BE USED TO MONITOR UNFRACTIONATED HEPARIN THERAPY, THIS LABORATORY NO LONGER HAS AN ESTABLISHED THERAPEUTIC RANGE BASEDON THE APTT. IT IS RECOMMENDED THAT THE UFH - HEPARIN ASSAY (ANTI-XAACTIVITY) BE USED FOR THIS PURPOSE. Performed By: #### 5 6101, 96485 ####[facility] [facility].[address] BASIC METABOLIC PANELon 11-28 Calcium mass conc 9.2 mg/dL Normal 8.6-10.3 [facility] Comment on above: Order Comment: No: Do not add to previou s draw Performed By: #### 0 0071, 34384, 63260 ####[facility] [place] [address], [facility] Chloride molar conc 98 mmol/L Normal 98-107 [facility] Comment on above: Order Comment: No: Do not add to previou s draw Performed By: #### 0 0071, 57454, 75657 ####[facility] [place] [address], [place] CO2 molar conc 24 mmol/L Normal 21-31 [facility] Comment on above: Order Comment: No: Do not add to previou s draw Performed By: #### 0 0071, 81722, 62469 ####[facility] [place] [address], [facility] Creatinine mass conc 0.96 mg/dL Normal 0.70-1.30 [facility] Comment on above: Order Comment: No: Do not add to previou s draw Performed By: #### 0 0071, , 73622 ####[facility] [place] [address], [place] GFR/1.73 sq M predicted among blacks MDRD vol rate/area (S/P/Bld) mL/min/{1.73_m2} Normal >60 [facility] Comment on above: Order Comment: No: Do not add to previou s draw Result Comment: Calc ulation may not be valid for patients over 70 years Performed By: #### 0 0071, , 96554 ####[facility] [place] [address], [place] GFR/1.73 sq M predicted among non-blacks MDRD vol rate/area (S/P/Bld) mL/min/{1.73_m2} Normal >60 [facility] Comment on above: Order Comment: No: Do not add to previou s draw Result Comment: Calc ulation may not be valid for patients over 70 years Performed By: #### 0 0071, , 15238 ####[facility] Glucose mass conc 99 mg/dL Normal 70-100 [facility] Comment on above: Order Comment: No: Do not add to previou s draw Performed By: #### 0 0071, 17318, 23537 ####[facility] [facility].[address] Potassium molar conc 3.4 mmol/L Low 3.5-5.1 [facility] Comment on above: Order Comment: No: Do not add to previou s draw Performed By: #### 0 0071, 96486, 54421 ####[facility] [facility].[address] Sodium molar conc 129 mmol/L Low 136-145 [facility] Comment on above: Order Comment: No: Do not add to previou s draw Performed By: #### 0 0071, 26300, 88956 ####[facility] [facility].[address] Urea nitrogen mass conc 18 mg/dL Normal 7-25 [facility] Comment on above: Order Comment: No: Do not add to previou s draw Performed By: #### 0 0071, 07953, 17293 ####[facility] [facility].[address] CBC W/DIFFon 12-22-2017 ABS BASOPHILS 0.1 10*3/uL Normal 0.0-0.2 [facility] Comment on above: Performed By: #### 16948 ####[facility] [facility].[address] ABS IMM GRANS 0.0 10*3/uL Normal 0.0-0.2 [facility] Comment on above: Performed By: #### 45593 ####[facility] [place] [address].[address] ABS NEUTROPHILS 5.7 10*3/uL Normal 1.6-7.6 [facility] Comment on above: Performed By: #### 65392 ####[facility] [facility].[address] Basophils Auto #/vol (Bld) 0.4 % Normal 0.0-1.0 [facility] Comment on above: Performed By: #### 68853 ####[facility] [facility].[address] Eosinophils Auto #/vol (Bld) 0.2 10*3/uL Normal 0.0-0.5 [facility] Comment on above: Performed By: #### 88325 ####[facility] [facility].[address] Eosinophils/100 WBC Auto (Bld) 1.3 % Normal 0.0-6.0 [facility] Comment on above: Performed By: #### 93052 ####[facility] [facility].[address] Erythrocyte distribution width Auto Ratio (RBC) 13.3 % Normal 11.5-15.0 [facility] Comment on above: Performed By: #### 32352 ####[facility] [facility].[address] Hematocrit Auto Volume Fraction (Bld) 46.3 % Normal 39.0-50.0 [facility] Comment on above: Performed By: #### 49814 ####[facility] [facility].[address] Hemoglobin mass conc (Bld) 15.6 g/dL Normal 13.0-17.0 [facility] Comment on above: Performed By: #### 18609 ####[facility] [facility].[address] IMMATURE GRANS 0.3 % Normal 0.0-1.0 [facility] Comment on above: Performed By: #### 98624 ####[facility] [facility].[address] Lymphocytes Auto #/vol (Bld) 4.6 10*3/uL High 1.2-4.0 [facility] Comment on above: Performed By: #### 56958 ####[facility] Lymphocytes/100 WBC Auto (Bld) 39.8 % Normal 20.0-45.0 [facility] Comment on above: Performed By: #### 80962 ####[facility] MCH Auto Entitic mass (RBC) 27.8 pg Normal 27.0-33.0 [facility] Comment on above: Performed By: #### 70654 ####[facility] MCHC Auto mass conc (RBC) 33.7 g/dL Normal 32.0-35.0 [facility] Comment on above: Performed By: #### 05407 ####[place] [id number] [address] MCV Auto Entitic volume (RBC) 82.5 fL Normal 82.0-98.0 [facility] Comment on above: Performed By: #### [id number] ####[facility] Monocytes Auto #/vol (Bld) 1.0 10*3/uL Normal 0.1-1.0 [facility] Comment on above: Performed By: #### [id number] ####[address] MONOS 8.7 % Normal 5.0-12.0 [facility] Comment on above: Performed By: #### [id number] ####[facility] [facility].[address] Neutrophils/100 WBC Auto (Bld) 49.5 % Normal 40.0-72.0 [facility] Comment on above: Performed By: #### [id number] ####[facility] [facility].[address] Nucleated RBC/100 WBC Ratio (Bld) 0 % Normal 0-0 [facility] Comment on above: Performed By: #### [id number] ####[place] [id number] [address] PLAT CNT 244 10*3/uL Normal 150-400 [facility] Comment on above: Performed By: #### [id number] ####[facility] RBC Auto #/vol (Bld) 5.61 10*6/uL Normal 4.20-5.70 [facility] Comment on above: Performed By: #### [id number] ####[facility] WBC Auto #/vol (Bld) 11.61 10*3/uL High 4.00-10.60 [facility] Comment on above: Performed By: #### [id number] ####[place] [id number] Cardiovascular Lab Reporton 12-22-2017 Cardiovascular Lab Report [facility] #: [id number] Physician: Scotty Arguelles,Department of M.D.Medicine Service Date: 12/22/2017Division of Birthdate: 1Cardiology Room #: 3CD [id number] [place] [address]Phone Fax Cardiovascular Laboratory ReportFINAL IMPRESSIONS:1. Patent stent in the right coronary artery.2. 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 Mild plaque disease of the left circumflex coronary artery.RECOMMENDATIONS:1. The patient will proceed to transesophageal echocardiography plus or minus cardioversion given the new onset of atrial fibrillation and unstable angina symptoms.2. Aggressive cardiovascular risk factor modification.3. Optimization medical management; aspirin, beta marcelina, statin, and angiotensin-converting enzyme inhibitor are indicated.4. Further recommendations deferred to the inpatient services.PROCEDURES: Limited femoral angiography, bilateral selective coronaryangiography, placement of a 6-Citizen Of [place] MynxGrip closure device.METHODS: After risks, benefits, and alternatives were explained, writteninformed consent was obtained. The patient was prepped and draped in usualsterile fashion over both groins. Using 1% lidocaine solution, localinfiltration anesthesia was achieved. Using modified Seldinger technique,access to the right common femoral artery was obtained. A 6-Citizen [place] 11 cmsheath was inserted. Baseline femoral angiography was performed.Bilateral selective coronary angiography was performed using JL4 and [id number]. After reviewing the images, it was elected to conclude theprocedure.A 6-Citizen [place] MynxGrip closure device was deployed per protocol achievingoptimal hemostasis. Overall, the patient tolerated the procedure well.There were no overt complications. He was to be transferred to the [facility] in stable condition.FINDINGS: Hemodynamics:AO: 136/73 (98).LEFT VENTRICULOGRAPHY: This was not performed.CORONARY ARTERIES: Left main coronary artery. This arises from the leftcoronary cusp. It bifurcates into the left anterior descending and leftcircumflex coronary artery, it shows mild plaque.Left anterior descending coronary artery. This shows a 30% to 40% ostialstenosis and mild plaque throughout the remainder of the vessel.Left circumflex coronary artery. This shows mild plaque and luminalirregularities. It appears to be a codominant vessel giving rise toposterolateral branches.Right coronary artery. This appears to be a codominant vessel giving riseto the posterior descending artery. There is evidence of a patent stent inthe midportion of the vessel. The ostium shows a 30% to 40% stenosis.Limited femoral angiography that shows significant calcific plaque at thesite of sheath insertion.INDICATIONS: Unstable angina, new onset atrial fibrillation.Electronically Signed by:Scotty Arguelles M.D. 12/24/2017 02:38 P Scotty Arguelles M.D.Date Dict: 12/22/2017/01:46 P/Scotty Arguelles M.D.Date Trans: 12/22/2017 04:28 P/mmoDN_[id number]: Julio Patton D.O. [address] [facility] [id number] Kaden Pérez D.O. [address] [facility] [address] Normal [facility] HEMOGLOBIN A1Con 12-22-2017 Glucose mass conc 160 mg/dL High 70-126 [facility] Comment on above: Order Comment: Yes: Add to Previous draw if able Performed By: #### 4 [id number] ####[place] [id number] [address] Hemoglobin A1c/Hemoglobin. total mass fraction (Bld) 7.2 % High 4.0-6.0 [facility] Comment on above: Order Comment: Yes: Add to Previous draw if able Performed By: #### 4 [id number] ####[place] [address] [facility].[address] MAGNESIUM BLOODon 12-22-2017 Magnesium mass conc 2.4 mg/dL Normal 1.9-2.7 [facility] Comment on above: Order Comment: Yes: Add to Previous draw if able Performed By: #### 3 5200, 69807 ####[facility] [facility] [place] [address], [facility] PROTHROMBIN TIMEon 8 INR Coag RelTime (PPP) 1.07 {INR} Normal 0.91-1.16 [facility] Comment on above: Result Comment: ACCCP RECOMMENDED INR FO R WARFARIN THERAPY CONDITION INRPROPHYLAXIS OF VENOUS THROMBOSIS 2-3(HIGH-RISK SURGERY)TREATMENT OF VENOUS THROMBOSIS 2-3TREATMENT OF PULMONARY EMBOLISM 2-3PREVENTION OF SYSTEMIC EMBOLISM: 2-3 ACUTE MYOCARDIAL INFARCTION TISSUE HEART VALVES VALVULAR HEART DISEASE ATRIAL FIBRILLATION RECURRENT SYSTEMIC EMBOLISMMECHANICAL HEART VALVE 2.5-3.5 FROM: ORAL ANTICOAGULANTS. MECHANISM OF ACTION, CLINICALEFFECTIVENESS, AND OPTIMAL THERAPEUTIC RANGE. [id number]. Performed By: #### 5 6101, 26789 ####[facility] [facility].[address] Prothrombin time (PT) Coag time (PPP) 13.9 s Normal 12.3-14.8 [facility] Comment on above: Result Comment: ALL RESULTS MUST BE INTE RPRETED WITH RESPECT TO BLOOD DRAWING ARTIFACTOR DILUTION ERROR OF ANTICOAGULANT AT THE TIME OF SAMPLING. Performed By: #### 5 6101, [id number] ####[facility] [facility].[address] TROPONIN-Ion 12-22-2017 Troponin I.cardiac mass conc 0.01 ng/mL Normal 0.00-0.04 [facility] Comment on above: Order Comment: No: Do not add to previou s draw Result Comment: REFE RENCE RANGES: 0.00 - 0.04 ng/ml NORMAL 0.05 - 0.50 ng/ml INDETERMINATE > 0.50 ng/ml CONSISTENT WITH AN M.I. Performed By: #### 3 5200, 26324 ####[facility] [facility].[address] Troponin I.cardiac mass conc 0.01 ng/mL Normal 0.00-0.04 [facility] Comment on above: Order Comment: No: Do not add to previou s draw Result Comment: REFE RENCE RANGES: 0.00 - 0.04 ng/ml NORMAL 0.05 - 0.50 ng/ml INDETERMINATE > 0.50 ng/ml CONSISTENT WITH AN M.I. Performed By: #### 0 0071, 19778, 93748 ####[facility] [facility].[address] TSH WITH REFLEXon 12-22-2017 Thyrotropin Qn 2.93 MICRO-IU/ML Normal 0.34-5.60 [facility] Comment on above: Performed By: #### [id number], [id number], [id number] # ###[facility] [facility].[address] UFH HEPARIN ASSAYon 12-23-19 18 UNFRACTIONATED HEPARIN 0.49 IU/mL Normal 0.30-0.70 [facility] Comment on above: Result Comment: Rivaroxaban and Apixaban will interfere with the anti Xa assay used tomonitor UFH and LMWH. Performed By: #### 0 0071, 86950, 32258 ####[facility] [facility].[address] UNFRACTIONATED HEPARIN 0.69 IU/mL Normal 0.30-0.70 [facility] Comment on above: Result Comment: Rivaroxaban and Apixaban will interfere with the anti Xa assay used tomonitor UFH and LMWH. Performed By: #### 3 0477 ####[facility] [facility].[address] Vital Signs Date Time Vital Sign Value Performing Clinician Facility 03-28-2024 10:39-0400 Body height 175.26 cm [facility] 03-28-2024 10:39-0400 Body mass index (BMI) [Ratio] 34.6 kg/m2 [facility] 03-28-2024 10:39-0400 Body weight 106.31 kg [facility] 03-28-2024 10:39-0400 Diastolic blood pressure 79 mm[Hg] [facility] 03-28-2024 10:39-0400 Heart rate 81 /min [facility] 03-28-2024 10:39-0400 Respiratory rate 12 /min [facility] 03-28-2024 10:39-0400 Systolic blood pressure 142 mm[Hg] [facility] 09-23-2023 11:07-0400 Body height 175.26 cm [facility] 09-23-2023 11:07-0400 Body mass index (BMI) [Ratio] 35.3 kg/m2 [facility] 09-23-2023 11:07-0400 Body weight 108.46 kg [facility] 09-23-2023 11:07-0400 Diastolic blood pressure 81 mm[Hg] [facility] 09-23-2023 11:07-0400 Heart rate 82 /min [facility] 09-23-2023 11:07-0400 Respiratory rate 16 /min [facility] 09-23-2023 11:07-0400 Systolic blood pressure 141 mm[Hg] [facility] 03-25-2023 11:00-0400 Body height 175.26 cm Julio Ball Other [facility] Other 03-25-2023 11:00-0400 Body mass index (BMI) [Ratio] 34.64 kg/m2 Julio Ball Other [facility] Other 03-25-2023 11:00-0400 Body weight 106.41 kg Julio Ball Other [facility] [employer] Other 03-25-2023 11:00-0400 Diastolic blood pressure 85 mm[Hg] Julio Ball Other [facility] Other 03-25-2023 11:00-0400 Respiratory rate 12 /min Julio Patton Other [facility] Other 03-25-2023 11:00-0400 Systolic blood pressure 142 mm[Hg] Julio Patton Other [facility] Other Encounters Encounter Date Encounter Type Care Provider Facility Start: 03-28-2024 End: 03-28-2024 ambulatory [facility] Work Phone: Start: 03-28-2024 End: 03-28-2024 Patient encounter procedure [facility] Physician [facility] Work Phone: Start: 03-26-2024 Patient encounter procedure [facility] Start: 12-15-2023 End: 12-15-2023 ambulatory [facility] Start: 11-12-2023 End: 11-12-2023 ambulatory SASHA MERCEDES Not Available Start: 10-22-2023 End: 10-22-2023 ambulatory [facility] Start: 09-23-2023 End: 09-23-2023 ambulatory [facility] Work Phone: Start: 09-23-2023 End: 09-23-2023 Patient encounter procedure [facility] Physician [facility] Work Phone: Start: 06-16-2023 End: 06-16-2023 ambulatory [facility] Start: 05-27-2023 End: 05-27-2023 ambulatory Julio Patton Other [facility] Other Start: 05-27-2023 Telephone encounter Julio Patton [facility] Start: 05-25-2023 End: 05-25-2023 ambulatory [facility] Start: 05-14-2023 End: 05-14-2023 ambulatory SASHA MERCEDES Not Available Start: 04-28-2023 End: 04-28-2023 ambulatory Julio Patton Other [facility] Other Start: 04-28-2023 Telephone encounter Julio Patton [facility] Start: 04-27-2023 End: 04-27-2023 ambulatory Julio Patton Other [facility] Other Start: 04-27-2023 Telephone encounter Julio Ball [facility] Start: 04-20-2023 End: 04-20-2023 ambulatory Julio Ball Other [facility] Other Start: 04-20-2023 Telephone encounter Julio Patton [facility] Start: 03-27-2023 End: 03-27-2023 ambulatory Julio Patton Other [facility] Other Start: 03-27-2023 Telephone encounter Julio Ball [facility] Start: 03-26-2023 End: 03-26-2023 ambulatory Julio Patton Other [facility] Other Start: 03-26-2023 Telephone encounter Julio Patton [facility] Start: 03-25-2023 End: 03-25-2023 ambulatory Julio Patton Other [facility] Other Start: 03-25-2023 Patient encounter procedure Julio Patton [facility] Start: 02-24-2023 End: 02-24-2023 ambulatory [facility] Start: 02-16-2023 End: 02-16-2023 ambulatory Julio Ball Other [facility] Other Start: 02-16-2023 Telephone encounter Julio Patton [facility] Start: 01-21-2023 End: 01-21-2023 ambulatory [facility] Start: 12-31-2022 End: 12-31-2022 ambulatory [facility] Start: 12-24-2022 End: 12-24-2022 ambulatory [facility] Start: 12-19-2022 End: 12-19-2022 ambulatory [facility] Start: 12-03-2022 End: 12-03-2022 ambulatory Julio Patton Other [facility] Other Start: 12-03-2022 Telephone encounter Julio RESENDIZ [facility] Start: 10-24-2022 End: 10-25-2022 ambulatory CHRIS GRIJALVA Facility:[facility] Start: 09-19-2022 End: 09-19-2022 ambulatory Julio Patton Other [facility] Other Start: 09-19-2022 Nursing evaluation o f patient and report Julio Patton [facility] Start: 09-15-2022 End: 09-16-[address] JULIO PATTON Facility:[facility] Start: 09-02-2022 End: 09-03-2022 ambulatory CHRIS GRIJALVA Facility:[facility] Start: 07-04-2022 End: 07-05-[address] JULIO PATTON Facility:[facility] Start: 06-24-2022 End: 06-24-2022 ambulatory MICK ROA Facility:[facility] Start: 05-07-2022 End: 05-08-[address] JULIO PATTON Facility:[facility] Start: 04-08-2022 End: 04-09-[address] JULIO PATTON Facility:[facility] Start: 04-01-2022 End: 04-02-[address] JULIO PATTON Facility:[facility] Start: 03-28-2022 End: 03-29-[address] JULIO PATTON Facility:[facility] Start: 02-07-2022 End: 02-07-[address] JULIO PATTON Facility:[facility] Start: 01-28-2022 End: 01-29-[address] JULIO PATTON Facility:[facility] Start: 01-21-2022 End: 01-22-[address] JULIO PATTON Facility:[facility] Start: 12-02-2021 End: 12-03-[address] JULIO PATTON Facility:[facility] Start: 03-26-2021 Adult health examination Julio Patton Other [facility] Other Start: 06-04-2018 End: 06-06-2018 Evaluation and management of inpatient JULIO PATTON Facility:[facility] Start: 12-22-2017 End: 12-23-2017 Evaluation and management of inpatient TAMI SQUIRES Facility:[facility] Procedures Date Procedure Procedure Detail Performing Clinician Start: 06-04-2018 [employer] of Cardi ac Rhythm, Single GUNNAR Salma WALLACE Start: 12-22-2017 FLUOROSCOPY OF MULTI PLE CORONARY ARTERIES USING OTH CONTRAST SCOTTY ARGUELLES Start: 12-22-2017 [employer] Witness of Cardi ac Rhythm, Single DENI DIPESH Start: 12-22-2017 ULTRASONOGRAPHY OF R IGHT AND LEFT HEART, TRANSESOPHAGEAL DENI DIPESH Start: 10-31-2015 Screening for malign ant neoplasm of colon Julio Patton Other Start: 09-19-2014 Screening for malign ant neoplasm of prostate Julio Patton Other Depression screening Tiffani Patton Other Plan of Treatment Date Care Activity Detail Author Start: 12-02-2022 ambulatory Ambulatory Facility:H 1 Comprehensive metabo lic 2000 panel - Serum or Plasma [facility] Immunizations Immunization Date Immunization Notes Care Provider Selvin looney 03-28-2024 influenza, high dose seasonal, preservative-free [facility] 03-25-2023 influenza virus vaccine, unspecified formulation [facility] 03-25-2023 influenza, high dose seasonal, preservative-free Julio Patton Other [facility] Other 05-02-2022 COVID-19 Pfizer (Pediatric) Julio Patton Other [facility] 05-02-2022 influenza virus vaccine, split virus (incl. purified surface antigen) Julio Patton Other [employer] Other 05-02-2022 influenza virus vaccine, unspecified formulation [facility] 09-26-2021 COVID-19 Vaccine Pfi zer - Documentation Purposes Only Julio Patton Other [facility] 03-22-2021 influenza virus vaccine, split virus (incl. purified surface antigen) Julio Patton Other [employer] Other 03-22-2021 influenza virus vaccine, unspecified formulation [facility] 03-12-2020 influenza virus vaccine, split virus (incl. purified surface antigen) Julio Patton Other [facility] Other 03-12-2020 influenza virus vaccine, unspecified formulation [facility] 04-01-2019 influenza virus vaccine, split virus (incl. purified surface antigen) Julio Patton Other [facility] Other 04-01-2019 influenza virus vaccine, unspecified formulation [facility] 03-09-2018 influenza virus vaccine, split virus (incl. purified surface antigen) Julio Patton Other [facility] Other 03-09-2018 influenza virus vaccine, unspecified formulation [facility] 03-31-2017 influenza virus vaccine, split virus (incl. purified surface antigen) Julio Patton Other [facility] Other 03-31-2017 influenza virus vaccine, unspecified formulation [facility] 04-17-2016 influenza virus vaccine, split virus (incl. purified surface antigen) Julio Patton Other [facility] Other 04-17-2016 influenza virus vaccine, unspecified formulation [facility] 11-05-2015 pneumococcal conjuga te vaccine, 13 valent Julio Patton Other [facility] 04-04-2013 tetanus and diphther ia toxoids, adsorbed, preservative free, for adult use (5 Lf of tetanus toxoid and 2 Lf of diphtheria toxoid) Julio Patton Other [facility] 11-10-2012 pneumococcal polysaccharide vaccine, 23 valent Julio Patton Other [facility] Payers Date Payer Category Payer Medicare [id number] 2. [id number] 1940 Unknown [id number] 2.16.8 [id number] 1940 Unknown [id number] 2.16.8 40.1.815814.3.579.2.647 1940 Unknown [id number] 2.16.84 0.1.696552.3.579.2.593 1940 Unknown [id number] 2.16.84 0.1.948636.3.579.2.593 1940 Unknown [id number] 2.16.84 0.1.265596.3.579.2.593 1940 Unknown [id number] 2.16.84 0.1.075261.3.579.2.593 1940 Unknown [id number] 2.16.84 0.1.450290.3.579.2.593 1940 Unknown [id number] 2.16.84 0.1.819901.3.579.2.593 1940 Unknown [id number] 2.16.84 0.1.900762.3.579.2.593 1940 Unknown [id number] 2.16.84 0.1.148393.3.579.2.593 1940 Unknown [id number] 2.16.84 0.1.418531.3.579.2.593 1940 Unknown [id number] 2.16.84 0.1.865173.3.579.2.593 1940 Unknown [id number] 2.16.84 0.1.886845.3.579.2.593 1940 Unknown [id number] 2.16.84 0.1.724088.3.579.2.593 1940 Unknown [id number] 2.16.84 0.1.977854.3.579.2.593 1940 Unknown [id number] 2.16.84 0.1.819239.3.579.2.593 1940 Unknown [id number] 2.16.84 0.1.433585.3.579.2.593 1940 Unknown [id number] 2.16.84 0.1.263029.3.579.2.1259 1940 Unknown [id number] 2.16.840 .1.495952.3.579.2.1259 Medicare [id number] Private Health Insurance [id number] Self-pay Self Pay [id number] Social History Date Type Detail Facility Unknown if ever smoked [facility] Other Sex Assigned At Sex Assigned At Bir th [facility] Other Start: 09-23-2023 Tobacco smoking status NHIS Never smoked tobacco (finding) [facility] Start: 1940 Sex Assigned At Male F [facility] Clinical Notes 11-27-2017 to 10-22-2023 Note Date & Type Note Facility 10-22-2023 Note Patient here for 6 m o follow up persistent afib, CAD, HFpEF, and hypertension. Device was interrogated in May 2023. Denies chest pain, palpitations, lightheadedness/syncope, and bleeding on Eliquis. Review of Systems HENT: Positive for hearing loss. Cardiovascular: Positive for dyspnea on exertion and leg swelling (intermittent). Musculoskeletal: Positive for arthritis and back pain. Neurological: Positive for numbness. All other systems reviewed and are negative. [facility] 10-22-2023 Note Cardiovascular Medic [facility] SUBJECTIVE Chief Complaint Patient presents with Atrial Fibrillation Congestive Heart Failure Coronary Artery Disease Hypertension Mendoza Barroso is a 83 y.o. male here for follow-up. HPI Reason for visit: follow up , s/p atrial lead dislodgment with extraction of old lead and reimplantation of new lead 07/08/2022 , s/p [facility] at [facility] for afib 11/202210/22/23 He denies any changes since last seen. His medications have been adjusted. He has LE edema, this is stable, lasix helps. Denies c/o CP, dyspnea, orthopnea, PND, dizziness/LH, palpitations, syncope. He had some episodes of a.fib on device check, he denies sx's. 05/25/23: Here for 6 month follow up Doing well without complaints of CP, SOB, REDDY, le edema He is pending device check Last device cehck 12/2022 showed normal function and thresholds with RV pacing 100% Echo 12/2022 shows normal LVEF ECG 05/25/23 atrial paced 02/24/23 HPI: Patient here for follow-up s/p cardioversion for A-fib. I performed this device check myself on 02/24/2023 and noted the there was retrograde VA conduction causing it to be detected in the atrial channel. he does have koyuk conduction and management of the device he had significant sinus node dysfunction with sinus bradycardia in the 40s with [place] QRS. however he does have AV Wenckebach and atrialpacing at 100bpm because 2-1 block. I noted that when the AV delay was 240 ms he did much better in terms of his exercise. extending down the AV delay to 300 ms caused tendency for retrograde A to be picked up. device test that was done on 01/21/2023 reveals atrial threshold of 1 V and ventricular threshold of 1.7 V. he is paced 100% of the time in the RV and 59% of the time in the RA. - 10/14/22 HPI: Patient here for follow-up s/p RA lead extraction and reimplantation of new lead on 07/08/2019. Device check 10/14/2022 reveals normal function and thresholds are revealed he is in persistent A-fib. He was placed on sSotalol 80mg bid and is now paced at 60bpm. Patient has shortness of breath, REDDY, orthopnea. Fatigue+ Prior HPI: Mendoza Barroso is a 82 y.o. year old with past medical history of Afib was admitted to [facility] and was noted to have bradycardia. initial plans for cardioversion was aborted and he underwent a dual-chamber Biotronik pacemaker implant by Dr. Armenta on 05/06/22. subsequently he was advised to have a cardioversion done as an outpatient. today presented to [facility] for cardioversion and at that time I performed a device check which revealed that he had underlying ventricular pacing, but his atrial lead was sensing ventricular signals. a subsequent chest x-ray revealed that the atrial lead was displaced. the plan was made to revise the atrial lead. Patient Active Problem List Diagnosis Coronary artery disease involving koyuk coronary artery of koy[place] heart without angina pectoris Paroxysmal atrial fibrillation (CMS/HCC) Status post percutaneous transluminal coronary angioplasty Essential hypertension Symptomatic bradycardia AICD lead displacement Acute on chronic heart failure with preserved ejection fraction ([facility]/HCC) Arthritis Myocardial infarction (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) Severe claudication ([facility]/HCC) Severe obesity with body mass index (BMI) of 35.0 to 35.9 and comorbidity ([facility]/HCC) Stage 3a chronic kidney disease ([facility]/HCC) Swelling of both lower extremities Type 2 diabetes mellitus with hyperglycemia ([facility]/HCC) Type 2 diabetes mellitus with stage 3a chronic kidney disease, with long-term current use of insulin ([facility]) Weight loss Past Medical History: Diagnosis Date Atrial fibrillation ([facility]/HCC) Coronary artery disease Diabetes mellitus ([facility]) Hypertension No family history on file. Social History Tobacco Use Smoking status: Former Types: Cigarettes Allergies Allergen Reactions Mixed Vespid Venom Protein Anaphylaxis ROS HENT: Positive for hearing loss. Cardiovascular: Positive for dyspnea on exertion and leg swelling (intermittent). Musculoskeletal: Positive for arthritis and back pain. Neurological: Positive for numbness. All other systems reviewed and are negative. OBJECTIVE Visit Vitals BP 142/86 (BP Location: Left arm, Patient Position: Sitting) Pulse 77 Ht 1.727 m (5' 8 ) Wt 107 kg (235 lb) SpO2 98% BMI 35.73 kg/m??? Smoking Status Former BSA 2.27 m??? Medications: Current Outpatient Medications: apixaban (Eliquis) 5 mg tablet, Take 5 mg by mouth in the morning and at bedtime., Disp: , Rfl: aspirin 81 mg EC tablet, Take 81 mg by mouth in the morni (more content not included)... [facility] 05-25-2023 Note Patient here for 3 m o follow up. Says PCP stopped lisinopril and hydralazine due to hypotension. He denies chest pain, palpitations, and bleeding on Eliquis. Had labs in Feb 2023. Review of Systems HENT: Positive for hearing loss. Cardiovascular: Positive for dyspnea on exertion and leg swelling. Neurological: Positive for light-headedness ( not often ). All other systems reviewed and are negative. [facility] 05-25-2023 Note [facility] Consult Note Reason for visit: follow up , s/p atrial lead dislodgment with extraction of old lead and reimplantation of new lead 07/08/2022 , s/p DCCV at [facility] for afib 11/202205/25/23: Here for 6 month follow up Doing well without complaints of CP, SOB, REDDY, le edema He is pending device check Last device cehck 12/2022 showed normal function and thresholds with RV pacing 100% Echo 12/2022 shows normal LVEF ECG 05/25/23 atrial paced 02/24/23 HPI: Patient here for follow-up s/p cardioversion for A-fib. I performed this device check myself on 02/24/2023 and noted the there was retrograde VA conduction causing it to be detected in the atrial channel. he does have [place] conduction and management of the device he had significant sinus node dysfunction with sinus bradycardia in the 40s with [place] QRS. however he does have AV Wenckebach and atrialpacing at 100bpm because 2-1 block. I noted that when the AV delay was 240 ms he did much better in terms of his exercise. extending down the AV delay to 300 ms caused tendency for retrograde A to be picked up. device test that was done on 01/21/2023 reveals atrial threshold of 1 V and ventricular threshold of 1.7 V. he is paced 100% of the time in the RV and 59% of the time in the RA. Echocardiogram performed on 12/31/2022 ECG 12/19/22 is AV paced, appears there is a P wave - possible PAC falling into PVARP continues to be on sotalol and tolerating medication well - [facility] 353 - 10/14/22 HPI: Patient here for follow-up s/p RA lead extraction and reimplantation of new lead on 07/08/2019. Device check 10/14/2022 reveals normal function and thresholds are revealed he is in persistent A-fib. He was placed on sSotalol 80mg bid and is now paced at 60bpm. Patient has shortness of breath, REDDY, orthopnea. Fatigue+ Prior HPI: Mendoza Barroso is a 82 y.o. year old with past medical history of Afib was admitted to [facility] and was noted to have bradycardia. initial plans for cardioversion was aborted and he underwent a dual-chamber Biotronik pacemaker implant by Dr. Armenta on 05/06/22. subsequently he was advised to have a cardioversion done as an outpatient. today presented to [facility] for cardioversion and at that time I performed a device check which revealed that he had underlying ventricular pacing, but his atrial lead was sensing ventricular signals. a subsequent chest x-ray revealed that the atrial lead was displaced. the plan was made to revise the atrial lead. PMH: Past Medical History: Diagnosis Date Atrial fibrillation (CMS/HCC) Coronary artery disease Diabetes mellitus (CMS/HCC) Hypertension PSH: Past Surgical History: Procedure Laterality Date CARDIAC CATHETERIZATION CARDIOVERSION CORONARY STENT PLACEMENT INSERT / REPLACE / REMOVE PACEMAKER SH: Social Determinants of Health Tobacco Use: Medium Risk (09/23/2022) Patient History Smoking Tobacco Use: Former Smokeless Tobacco Use: Unknown Passive Exposure: Not on file Alcohol Use: Not on file Financial Resource Strain: Not on file Food Insecurity: Not on file Transportation Needs: Not on file Physical Activity: Not on file Stress: Not on file Social Connections: Not on file Intimate Partner Violence: Not on file Depression: Not on file Housing Stability: Not on file Allergies: Allergies Allergen Reactions Mixed Vespid Venom Protein Anaphylaxis Weight: No results found for: PTWEIGHT Meds: Current Outpatient Medications on File Prior to Visit Medication Sig Dispense Refill apixaban (Eliquis) 5 mg tablet Take 5 mg by mouth in the morning and at bedtime. aspirin 81 mg EC tablet Take 81 mg by mouth in the morning. finasteride (Proscar) 5 mg tablet Take 5 mg by mouth in the morning. Do not crush, chew, or split. furosemide (Lasix) 40 mg tablet Take 1 tablet (40 mg) by mouth in the morning. 30 tablet 2 insulin glargine (Lantus) 100 unit/mL injection Inject 18 Units under the skin in the morning. rosuvastatin (Crestor) 40 mg tablet Take 40 mg by mouth in the morning. sotalol (Betapace) 120 mg tablet Take 1 tablet (120 mg) by mouth in the morning and at bedtime. 180 tablet 3 tamsulosin (Flomax) 0.4 mg 24 hr capsule Take 0.4 mg by mouth in the morning and at bedtime. atorvastatin (Lipitor) 10 mg tablet atorvastatin 10 mg tablet diazePAM (Valium) 5 mg tablet in the morning. doxazosin (Cardura) 4 mg tablet every 12 (twelve) hours. gabapentin (Neurontin) 300 mg capsule Take 300 mg by mouth in the morning. hydrALAZINE (Apresoline) 50 mg tablet Take 1 tablet (50 mg) by mouth in the morning and at bedtime. (Patient not taking: Reported on 05/25/2023) 60 tablet 11 insulin aspart (NovoLOG, Fiasp) 100 UNIT/ML patient supplied pump Inject under the skin continuously. insulin aspart, with niacinamide, (Fiasp FlexTouch U-100 Insulin) 1 (more content not included)... [facility] 03-26-2023 Evaluation note Encounter Date Diagnosis Assessment Notes Feb, Stage 3a chronic kidney disease (ICD-10 - N18.31) [facility] Other 09-27-2023 Evaluation note* Encounter Date Diagnosis Assessment Notes Treatment Notes Treatment Clinical Notes Feb, Medicare annual wellness visit, subsequent (ICD-10 - Z00.00) Personalized health advice was given to the beneficiary including a written plan for screenings discussed and provided. Advanced care planning reviewed and/or information given as requested. Additional counseling was provided here today in regards to, [ ]. The above visit was performed by [ ], under direct supervision of [ ]. Document reviewed and amended by provider signed below. Feb, ASHD (arteriosclerotic heart disease) (ICD-10 - I25.10) This patient is stable without activity related CP, dyspnea or lightheadedness. They are instructed to continue exercise and AHA diet plan. Continue secondary prevention measures. Feb, Primary hypertension (ICD-10 - I10) This patient is instructed to consume a healthy, low-fat, low-salt diet. They are also encouraged to continue exercise to achieve/maintain a normal BMI. Feb, Type 2 diabetes mellitus with hyperglycemia (ICD-10 - E11.65) This patient is following a comprehensive diabetic treatment plan. They are checking their feet daily for calluses and nonhealing ulcers. They are being seen for yearly dilated eye examinations. Goals: SBP less than 130, LDL less than 100, FBS less than 140, A1C less than 7%. They are checking their BS daily, will which are reviewed at the office visit. Continue regular routine monitoring of A1C,] Microalbumin, Dilated eye exam and Foot exam Feb, Elevated cholesterol (ICD-10 - E78.00) Instructed on diet and exercise with continued statin therapy.Discussed the beneficial effects of lowering cholesterol in reducing the risk for cerebrovascular and cardiovascular disease. Feb, Nocturia (ICD-10 - R35.1) Feb, Benign prostatic hyperplasia with lower urinary tract symptoms (ICD-10 - N40.1) Symptoms tolerable w/ Proscar and Flomax. f/u Feb, Chronic venous insufficiency (ICD-10 - I87.2) Avoid salt and elevate lower extremities, support stockings, inspect legs and feet daily for blisters and ulcerations. 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 This patient is anticoagulated to prevent thromboembolic events. 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 [facility] Other 08-29-2023 Note[facility] Electrophysiology Consult Note Reason for visit: follow up , s/p atrial lead dislodgment with extraction of old lead and reimplantation of new lead 07/08/2022 , s/p DCCV at [facility] for afib 02/24/23 HPI: Patient here for follow-up s/p cardioversion for A-fib. I performed this device check myself on 02/24/2023 and noted the there was retrograde VA conduction causing it to be detected in the atrial channel. he does have [place] conduction and management of the device he had significant sinus node dysfunction with sinus bradycardia in the 40s with [place] QRS. however he does have AV Wenckebach and atrialpacing at 100bpm because 2-1 block. I noted that when the AV delay was 240 ms he did much better in terms of his exercise. extending down the AV delay to 300 ms caused tendency for retrograde A to be picked up. device test that was done on 01/21/2023 reveals atrial threshold of 1 V and ventricular threshold of 1.7 V. he is paced 100% of the time in the RV and 59% of the time in the RA. Echocardiogram performed on 12/31/2022 ECG 12/19/22 is AV paced, appears there is a P wave - possible PAC falling into PVARP continues to be on sotalol and tolerating medication well - [facility] 353 10/14/22 HPI: Patient here for follow-up s/p RA lead extraction and reimplantation of new lead on 07/08/2019. Device check 10/14/2022 reveals normal function and thresholds are revealed he is in persistent A-fib. He was placed on sSotalol 80mg bid and is now paced at 60bpm. Patient has shortness of breath, REDDY, orthopnea. Fatigue+ Prior HPI: Mendoza Barroso is a 82 y.o. year old with past medical history of Afib was admitted to [facility] and was noted to have bradycardia. initial plans for cardioversion was aborted and he underwent a dual-chamber Biotronik pacemaker implant by Dr. Armenta on 05/06/22. subsequently he was advised to have a cardioversion done as an outpatient. today presented to [facility] for cardioversion and at that time I performed a device check which revealed that he had underlying ventricular pacing, but his atrial lead was sensing ventricular signals. a subsequent chest x-ray revealed that the atrial lead was displaced. the plan was made to revise the atrial lead. PMH: Past Medical History: Diagnosis Date Atrial fibrillation (CMS/HCC) Coronary artery disease Diabetes mellitus (CMS/HCC) Hypertension PSH: Past Surgical History: Procedure Laterality Date CARDIAC CATHETERIZATION CARDIOVERSION CORONARY STENT PLACEMENT INSERT / REPLACE / REMOVE PACEMAKER SH: Social Determinants of Health Tobacco Use: Medium Risk (09/23/2022) Patient History Smoking Tobacco Use: Former Smokeless Tobacco Use: Unknown Passive Exposure: Not on file Alcohol Use: Not on file Financial Resource Strain: Not on file Food Insecurity: Not on file Transportation Needs: Not on file Physical Activity: Not on file Stress: Not on file Social Connections: Not on file Intimate Partner Violence: Not on file Depression: Not on file Housing Stability: Not on file Allergies: Allergies Allergen Reactions Mixed Vespid Venom Protein Anaphylaxis Weight: No results found for: PTWEIGHT Meds: Current Outpatient Medications on File Prior to Visit Medication Sig Dispense Refill apixaban (Eliquis) 5 mg tablet Take 5 mg by mouth in the morning and at bedtime. aspirin 81 mg EC tablet Take 81 mg by mouth in the morning. atorvastatin (Lipitor) 10 mg tablet atorvastatin 10 mg tablet diazePAM (Valium) 5 mg tablet in the morning. doxazosin (Cardura) 4 mg tablet every 12 (twelve) hours. finasteride (Proscar) 5 mg tablet Take 5 mg by mouth in the morning. Do not crush, chew, or split. furosemide (Lasix) 40 mg tablet Take 1 tablet (40 mg) by mouth in the morning. 30 tablet 2 gabapentin (Neurontin) 300 mg capsule Take 300 mg by mouth in the morning. hydrALAZINE (Apresoline) 50 mg tablet Take 1 tablet (50 mg) by mouth in the morning and at bedtime. 60 tablet 11 insulin aspart (NovoLOG, Fiasp) 100 UNIT/ML patient supplied pump Inject under the skin continuously. insulin aspart, with niacinamide, (Fiasp FlexTouch U-100 Insulin) 100 unit/mL (3 mL) injection Fiasp FlexTouch U-100 Insulin 100 unit/mL (3 mL) subcutaneous pen INJECT USING 1:8 CARB RATIO BEFORE MEALS PLUS CORRECTION (MAX DAILY 50 UNITS) insulin glargine (Lantus) 100 unit/mL injection Inject 18 Units under the skin in the morning. lisinopril 10 mg tablet Take 10 mg by mouth in the morning. lubiprostone (Amitiza) 24 mcg capsule Take 1 capsule twice a day by oral route. rosuvastatin (Crestor) 40 mg tablet Take 40 mg by mouth in the morning. sotalol (Betapace) 120 mg tablet Take 1 tablet (120 mg) by mouth in the morning and at bedtime. 180 tablet 3 tamsulosin (Flomax) 0.4 mg 24 hr capsule Take 0.4 mg by mouth in the morning and at bedtime. traMA (more content not included)...[facility] 12-31-2022 NotePatient here for 1 week follow up. Lasix was increased to 40mg daily last week. He is down 3# and says the LE edema is much better. Review of Systems Cardiovascular: Positive for leg swelling. All other systems reviewed and are negative.[facility] 12-31-2022 NoteUT Electrophysiology Consult Note Reason for visit: follow up , s/p atrial lead dislodgment with extraction of old lead and reimplantation of new lead 07/08/2022 , s/p DCCV at [facility] for afib HPI: Patient here for follow-up s/p cardioversion for A-fib ECG 12/19/22 is AV paced, appears there is a P wave - possible PAC falling into PVARP continues to be on sotalol and tolerating medication well - j 353 10/14/22 HPI: Patient here for follow-up s/p RA lead extraction and reimplantation of new lead on 07/08/2019. Device check 10/14/2022 reveals normal function and thresholds are revealed he is in persistent A-fib. He was placed on sSotalol 80mg bid and is now paced at 60bpm. Patient has shortness of breath, REDDY, orthopnea. Fatigue+ Prior HPI: Mendoza Barroso is a 82 y.o. year old with past medical history of Afib was admitted to [facility] and was noted to have bradycardia. initial plans for cardioversion was aborted and he underwent a dual-chamber Biotronik pacemaker implant by Dr. Armenta on 05/06/22. subsequently he was advised to have a cardioversion done as an outpatient. today presented to [facility] for cardioversion and at that time I performed a device check which revealed that he had underlying ventricular pacing, but his atrial lead was sensing ventricular signals. a subsequent chest x-ray revealed that the atrial lead was displaced. the plan was made to revise the atrial lead. PMH: Past Medical History: Diagnosis Date Atrial fibrillation (CMS/HCC) Coronary artery disease Diabetes mellitus (CMS/HCC) Hypertension PSH: Past Surgical History: Procedure Laterality Date CARDIAC CATHETERIZATION CARDIOVERSION CORONARY STENT PLACEMENT INSERT / REPLACE / REMOVE PACEMAKER SH: Social Determinants of Health Tobacco Use: Medium Risk (09/23/2022) Patient History Smoking Tobacco Use: Former Smokeless Tobacco Use: Unknown Passive Exposure: Not on file Alcohol Use: Not on file Financial Resource Strain: Not on file Food Insecurity: Not on file Transportation Needs: Not on file Physical Activity: Not on file Stress: Not on file Social Connections: Not on file Intimate Partner Violence: Not on file Depression: Not on file Housing Stability: Not on file Allergies: Allergies Allergen Reactions Mixed Vespid Venom Protein Anaphylaxis Weight: No results found for: PTWEIGHT Meds: Current Outpatient Medications on File Prior to Visit Medication Sig Dispense Refill apixaban (Eliquis) 5 mg tablet Take 5 mg by mouth in the morning and at bedtime. aspirin 81 mg EC tablet Take 81 mg by mouth in the morning. atorvastatin (Lipitor) 10 mg tablet atorvastatin 10 mg tablet diazePAM (Valium) 5 mg tablet in the morning. doxazosin (Cardura) 4 mg tablet every 12 (twelve) hours. finasteride (Proscar) 5 mg tablet Take 5 mg by mouth in the morning. Do not crush, chew, or split. furosemide (Lasix) 40 mg tablet Take 1 tablet (40 mg) by mouth in the morning. 30 tablet 2 gabapentin (Neurontin) 300 mg capsule Take 300 mg by mouth in the morning. hydrALAZINE (Apresoline) 50 mg tablet Take 1 tablet (50 mg) by mouth in the morning and at bedtime. 60 tablet 11 insulin aspart (NovoLOG, Fiasp) 100 UNIT/ML patient supplied pump Inject under the skin continuously. insulin aspart, with niacinamide, (Fiasp FlexTouch U-100 Insulin) 100 unit/mL (3 mL) injection Fiasp FlexTouch U-100 Insulin 100 unit/mL (3 mL) subcutaneous pen INJECT USING 1:8 CARB RATIO BEFORE MEALS PLUS CORRECTION (MAX DAILY 50 UNITS) insulin glargine (Lantus) 100 unit/mL injection Inject 18 Units under the skin in the morning. lisinopril 10 mg tablet Take 10 mg by mouth in the morning. lubiprostone (Amitiza) 24 mcg capsule Take 1 capsule twice a day by oral route. rosuvastatin (Crestor) 40 mg tablet Take 40 mg by mouth in the morning. sotalol (Betapace) 120 mg tablet Take 1 tablet (120 mg) by mouth in the morning and at bedtime. 180 tablet 3 tamsulosin (Flomax) 0.4 mg 24 hr capsule Take 0.4 mg by mouth in the morning and at bedtime. traMADol ER (Ultram-ER) 100 mg 24 hr tablet Take 1 tablet every day by oral route for 30 days. [DISCONTINUED] polyethylene glycol (Glycolax) 17 gram/dose powder Take 17 g by mouth in the morning. No current facility-administered medications on file prior to visit. ROS: Cardio Basic Cardiovascular Symptoms: no lightheadedness, no leg edema, no syncope, no orthopnea, no PND, no claudication, Constitutional Constitutional: no fever, no night sweats, no significant weight gain, no significant weight loss, no exercise intolerance Eyes Eyes: no dry eyes, no irritation, no vision change ENMT Ears: no difficulty hearing, no ear pain Nose: no frequent nosebleeds, Mouth/Throat: no sore throat, no bleeding gums, no snoring, no dry mouth, no mouth ulcers, no oral abnormalities, (more content not included)...[facility]06-28-2023 NoteReview of Systems Cardiovascular: Positive for leg swelling. All other systems reviewed and are negative.[facility] 12-24-2022 NoteUT Electrophysiology Consult Note Reason for visit: follow up , s/p atrial lead dislodgment with extraction of old lead and reimplantation of new lead 07/08/2022 , s/p DCCV at [facility] for afib HPI: Patient here for follow-up s/p cardioversion for A-fib per Dr. Grijalva ECG 12/19/22 is AV paced, appears there is a P wave - possible PAC falling into PVARP continues to be on sotalol and tolerating medication well - [facility] 353 10/14/22 HPI: Patient here for follow-up s/p RA lead extraction and reimplantation of new lead on 07/08/2019. Device check 10/14/2022 reveals normal function and thresholds are revealed he is in persistent A-fib. He was placed on sSotalol 80mg bid and is now paced at 60bpm. Patient has shortness of breath, REDDY, orthopnea. Fatigue+ Prior HPI: Mendoza Barroso is a 82 y.o. year old with past medical history of Afib was admitted to [facility] and was noted to have bradycardia. initial plans for cardioversion was aborted and he underwent a dual-chamber Biotronik pacemaker implant by Dr. Armenta on 05/06/22. subsequently he was advised to have a cardioversion done as an outpatient. today presented to [facility] for cardioversion and at that time I performed a device check which revealed that he had underlying ventricular pacing, but his atrial lead was sensing ventricular signals. a subsequent chest x-ray revealed that the atrial lead was displaced. the plan was made to revise the atrial lead. PMH: Past Medical History: Diagnosis Date Atrial fibrillation (CMS/HCC) Coronary artery disease Diabetes mellitus (CMS/HCC) Hypertension PSH: Past Surgical History: Procedure Laterality Date CARDIAC CATHETERIZATION CARDIOVERSION CORONARY STENT PLACEMENT INSERT / REPLACE / REMOVE PACEMAKER SH: Social Determinants of Health Tobacco Use: Medium Risk (09/23/2022) Patient History Smoking Tobacco Use: Former Smokeless Tobacco Use: Unknown Passive Exposure: Not on file Alcohol Use: Not on file Financial Resource Strain: Not on file Food Insecurity: Not on file Transportation Needs: Not on file Physical Activity: Not on file Stress: Not on file Social Connections: Not on file Intimate Partner Violence: Not on file Depression: Not on file Housing Stability: Not on file Allergies: Allergies Allergen Reactions Mixed Vespid Venom Protein Anaphylaxis Weight: No results found for: PTWEIGHT Meds: Current Outpatient Medications on File Prior to Visit Medication Sig Dispense Refill apixaban (Eliquis) 5 mg tablet Take 5 mg by mouth in the morning and at bedtime. aspirin 81 mg EC tablet Take 81 mg by mouth in the morning. atorvastatin (Lipitor) 10 mg tablet atorvastatin 10 mg tablet diazePAM (Valium) 5 mg tablet in the morning. doxazosin (Cardura) 4 mg tablet every 12 (twelve) hours. finasteride (Proscar) 5 mg tablet Take 5 mg by mouth in the morning. Do not crush, chew, or split. furosemide (Lasix) 20 mg tablet Take 1 tablet (20 mg) by mouth in the morning. 30 tablet 1 gabapentin (Neurontin) 300 mg capsule Take 300 mg by mouth in the morning. hydrALAZINE (Apresoline) 50 mg tablet Take 1 tablet (50 mg) by mouth in the morning and at bedtime. 60 tablet 11 insulin aspart (NovoLOG, Fiasp) 100 UNIT/ML patient supplied pump Inject under the skin continuously. insulin aspart, with niacinamide, (Fiasp FlexTouch U-100 Insulin) 100 unit/mL (3 mL) injection Fiasp FlexTouch U-100 Insulin 100 unit/mL (3 mL) subcutaneous pen INJECT USING 1:8 CARB RATIO BEFORE MEALS PLUS CORRECTION (MAX DAILY 50 UNITS) insulin glargine (Lantus) 100 unit/mL injection Inject 18 Units under the skin in the morning. lisinopril 10 mg tablet Take 10 mg by mouth in the morning. lubiprostone (Amitiza) 24 mcg capsule Take 1 capsule twice a day by oral route. polyethylene glycol (Glycolax) 17 gram/dose powder Take 17 g by mouth in the morning. rosuvastatin (Crestor) 40 mg tablet Take 40 mg by mouth in the morning. sotalol (Betapace) 120 mg tablet Take 1 tablet (120 mg) by mouth in the morning and at bedtime. 180 tablet 3 tamsulosin (Flomax) 0.4 mg 24 hr capsule Take 0.4 mg by mouth in the morning and at bedtime. traMADol ER (Ultram-ER) 100 mg 24 hr tablet Take 1 tablet every day by oral route for 30 days. [DISCONTINUED] sotalol (Betapace) 80 mg tablet Take 1 tablet (80 mg) by mouth every 12 (twelve) hours. (Patient taking differently: Take 120 mg by mouth every 12 (twelve) hours.) 60 tablet 3 No current facility-administered medications on file prior to visit. ROS: Cardio Basic Cardiovascular Symptoms: no lightheadedness, no leg edema, no syncope, no orthopnea, no PND, no claudication, Constitutional Constitutional: no fever, no night sweats, no significant weight gain, no significant weight loss, no exercise intolerance Eyes Eyes: no dry eyes, no irritation, no vision change E (more content not included)...[facility]06-23-2023 NoteReview of Systems Cardiovascular: Positive for leg swelling. Respiratory: Positive for shortness of breath.[facility]06-23-2023 NoteUT Electrophysiology Consult Note Reason for visit: follow up , s/p atrial lead dislodgment with extraction of old lead and reimplantation of new lead 07/08/2022 , s/p DCCV at [facility] for afib HPI: Patient here for follow-up s/p cardioversion for A-fib per Dr. Grijalva ECG 12/19/22 is AV paced, appears there is a P wave - possible PAC falling into PVARP continues to be on sotalol and tolerating medication well - [facility] 353 10/14/22 HPI: Patient here for follow-up s/p RA lead extraction and reimplantation of new lead on 07/08/2019. Device check 10/14/2022 reveals normal function and thresholds are revealed he is in persistent A-fib. He was placed on sSotalol 80mg bid and is now paced at 60bpm. Patient has shortness of breath, REDDY, orthopnea. Fatigue+ Prior HPI: Mendoza Barroso is a 82 y.o. year old with past medical history of Afib was admitted to [facility] and was noted to have bradycardia. initial plans for cardioversion was aborted and he underwent a dual-chamber Biotronik pacemaker implant by Dr. Armenta on 05/06/22. subsequently he was advised to have a cardioversion done as an outpatient. today presented to [facility] for cardioversion and at that time I performed a device check which revealed that he had underlying ventricular pacing, but his atrial lead was sensing ventricular signals. a subsequent chest x-ray revealed that the atrial lead was displaced. the plan was made to revise the atrial lead. PMH: Past Medical History: Diagnosis Date Atrial fibrillation (CMS/HCC) Coronary artery disease Diabetes mellitus (CMS/HCC) Hypertension PSH: Past Surgical History: Procedure Laterality Date CARDIAC CATHETERIZATION CARDIOVERSION CORONARY STENT PLACEMENT INSERT / REPLACE / REMOVE PACEMAKER SH: Social Determinants of Health Tobacco Use: Medium Risk Smoking Tobacco Use: Former Smokeless Tobacco Use: Unknown Passive Exposure: Not on file Alcohol Use: Not on file Financial Resource Strain: Not on file Food Insecurity: Not on file Transportation Needs: Not on file Physical Activity: Not on file Stress: Not on file Social Connections: Not on file Intimate Partner Violence: Not on file Depression: Not on file Housing Stability: Not on file Allergies: Allergies Allergen Reactions Mixed Vespid Venom Protein Anaphylaxis Weight: No results found for: PTWEIGHT Meds: Current Outpatient Medications on File Prior to Visit Medication Sig Dispense Refill apixaban (Eliquis) 5 mg tablet Take 5 mg by mouth in the morning and at bedtime. aspirin 81 mg EC tablet Take 81 mg by mouth in the morning. finasteride (Proscar) 5 mg tablet Take 5 mg by mouth in the morning. Do not crush, chew, or split. gabapentin (Neurontin) 300 mg capsule Take 300 mg by mouth in the morning. hydrALAZINE (Apresoline) 50 mg tablet Take 1 tablet (50 mg) by mouth in the morning and at bedtime. 60 tablet 11 insulin aspart (NovoLOG, Fiasp) 100 UNIT/ML patient supplied pump Inject under the skin continuously. insulin glargine (Lantus) 100 unit/mL injection Inject 18 Units under the skin in the morning. lisinopril 10 mg tablet Take 10 mg by mouth in the morning. rosuvastatin (Crestor) 40 mg tablet Take 40 mg by mouth in the morning. sotalol (Betapace) 120 mg tablet Take 1 tablet (120 mg) by mouth in the morning and at bedtime. 180 tablet 3 sotalol (Betapace) 80 mg tablet Take 1 tablet (80 mg) by mouth every 12 (twelve) hours. (Patient taking differently: Take 120 mg by mouth every 12 (twelve) hours.) 60 tablet 3 tamsulosin (Flomax) 0.4 mg 24 hr capsule Take 0.4 mg by mouth in the morning and at bedtime. No current facility-administered medications on file prior to visit. ROS: Cardio Basic Cardiovascular Symptoms: no lightheadedness, no leg edema, no syncope, no orthopnea, no PND, no claudication, Constitutional Constitutional: no fever, no night sweats, no significant weight gain, no significant weight loss, no exercise intolerance Eyes Eyes: no dry eyes, no irritation, no vision change ENMT Ears: no difficulty hearing, no ear pain Nose: no frequent nosebleeds, Mouth/Throat: no sore throat, no bleeding gums, no snoring, no dry mouth, no mouth ulcers, no oral abnormalities, no teeth problems Respiratory Respiratory: no cough, no wheezing, no coughing up blood, no sleep apnea Musculoskeletal Musculoskeletal: no muscle aches, no muscle weakness, joint pain+, no back pain, no swelling in the extremities Integumentary Skin no rash, no ulcer, no varicosities, no discoloration, no pruritus Neurologic Neurologic: no loss of consciousness, no weakness, no numbness, no seizures, no dizziness, no headaches Psychiatric Psych: no depression, feeling safe in relationship, no alcohol abuse, Hematologic/Lymphatic Hematologic/Lymphatic no swollen glands, no bruising Physical Exam: (more content not included)...[facility] 09-19-2022 Evaluation note* Encounter Date Diagnosis Assessment Notes Treatment Notes Treatment Clinical Notes Aug, Dysuria (ICD-10 - R30.0) [employer] Other 06-06-2022 NotePROCEDURE: XR HIP LT 2 3V W PELVIS COMPARISON: None. HISTORY: Pain of left hip joint FINDINGS: BONES:No acute fracture or dislocation. Minimal bilateral hip osteoarthropathy. SOFT TISSUES:Negative. No visible soft tissue swelling. EFFUSION:None visible. OTHER: Electronic device projects over the right hemipelvis IMPRESSION: No acute abnormality Electronically authenticated by: NICOLE THOMAS Date: 2021-12-02 20:59[facility]06-01-2018 History general Narrative - Reported* Type Description Date Surgical History Problem Title : Othe r Surgery, Problem Comment : [facility] PTCA/stent RCA 2002 [facility] PTCA/PABLITO RCA 2014[facility] 11/2017Colonoscopy 01/2018, Problem Status : Resolved, Surgical History Problem Title : past surgical history reviewed, Problem Description : past surgical history reviewed, Problem Comment : reviewed - no changes required, Problem Status : Resolved, Surgical History Problem Title : surg ical procedures, hx of, Problem Description : surgical procedures, hx of, Problem Comment : [facility] PTCA/stent RCA 2002 [facility] PTCA/PABLITO RCA 2014 [facility] 11/2017 Colonoscopy 01/2018, Problem Status : Active, Surgical History Problem Title : surg ical procedures, hx of, Problem Description : surgical procedures, hx of, Problem Comment : [facility] PTCA/stent RCA 2002 [facility] PTCA/PABLITO RCA 2014 [facility] 11/2017, Problem Status : Resolved, Surgical History Problem Title : surg ical procedures, hx of, Problem Description : surgical procedures, hx of, Problem Comment : [facility] PTCA/stent RCA 2002 [facility] PTCA/PABLITO RCA 2014, Problem Status : Resolved, Surgical History Problem Title : surg ical procedures, hx of, Problem Description : surgical procedures, hx of, Problem Comment : [facility] PTCA/stent RCA 2002, Problem Status : Resolved, [employer] Other Evaluation noteNo InformationNort [employer] Other Evaluation note* Diagnosis Onset Date Resolution Status ASHD (arteriosclerotic heart disease) acute Benign prostatic hyperplasia with lower urinary tract symptoms acute Chronic kidney disease acute Elevated cholesterol acute Hypertension acute Paroxysmal atrial fibrillation acute [facility] Work Phone: Evaluation note* Diagnosis Onset Date Resolution Status ASHD (arteriosclerotic heart disease) acute Benign prostatic hyperplasia with lower urinary tract symptoms acute Chronic venous insufficiency of lower extremity acute Elevated cholesterol acute Medicare annual wellness visit, subsequent acute Obesity acute Paroxysmal atrial fibrillation acute Primary hypertension acute Stage 3a chronic kidney disease acute Type 2 diabetes mellitus with hyperglycemia acute [facility] Work Phone: History general Narrative - Reported* Type Description Date Medical History Type 2 diabetes mellitus with hy perglycemia Medical History Paroxysmal atrial fibrillation Medical History Change in bowel habit Medical History Weight loss Medical History Colon polyp Medical History Constipated Medical History ASHD (arteriosclerotic heart dis ease) Medical History Primary hypertension Medical History Elevated cholesterol Medical History Benign prostatic hyp erplasia with lower urinary tract symptoms, symptom details unspecified Medical History Chronic venous insufficiency Surgical History C PTCA/STENT RCA 2002 Surgical History [facility] PTCA/PABLITO RCA 2014 Surgical History [facility] 2018 Surgical History COLONOSCOPY 2018 Hospitalization History SEE SURGICAL HX [facility] Other Hisgmib general Narrative - Reported* Type Description Date Medical History Type 2 diabetes mellitus with hy perglycemia Medical History Paroxysmal atrial fibrillation Medical History Change in bowel habit Medical History Weight loss Medical History Colon polyp Medical History Constipated Medical History ASHD (arteriosclerotic heart dis ease) Medical History Primary hypertension Medical History Elevated cholesterol Medical History Benign prostatic hyp erplasia with lower urinary tract symptoms, symptom details unspecified Medical History Chronic venous insufficiency Medical History CKD Surgical History C PTCA/STENT RCA 2002 Surgical History [facility] PTCA/PABLITO RCA 2014 Surgical History [facility] 2018 Surgical History COLONOSCOPY 2018 Hospitalization History SEE SURGICAL HX [facility] Other Summary Purpose Family History No Family History Records FoundNo Family History Records FoundNo Family History Records FoundNo Family History Records Found Advance Directives Advance Directive Response Recorded Date/ Time Advance Directives No February 16, 2018 4:29pm Hospital Course Note MR#: [id number] [facility] Mendoza Barroso Admitted: 12/22/2017 Discharged: 12/23/2017 Date of : 1940 Physician: Andrew Hsieh MD DISCHARGE SUMMARYWOM[facility]'S [facility] CARE PHYSICIAN: Dr. Francesca Mishra.CONSULTING PHYSICIAN: [facility].FINAL DIAGNOSES:1. Unstable angina status post cardiac cath.2. New-onset atrial fibrillation, status post cardioversion, sinus rhythm now.SECONDARY DIAGNOSES:1. Essential hypertension.2. Coronary artery disease.3. Unspecified dyslipidemia.HOSPITAL COURSE: This is a pleasant 77[facility] also found to have a new-onset atrialfibrillation. The patient was admitted, seen by Cardiology inconsultation, underwent cardiac catheterization, which revealed a patentright coronary artery stent with minimal coronary artery disease on theanterior descending artery, so the patient was started on medicalmanagement and also underwent cardioversion, which the patient toleratedvery well (more content not included)... Note MR#: [id number] [facility] Mendoza Barroso Admitted: 06/04/2018 Discharged: 06/06/2018 Date of : 1940 Physician: George Mistry MD DISCHARGE SUMMARYDISCHARGE ATTENDING PHYSICIAN: George Mistry [facility] PHYSICIAN: CHACHO Payan PROBLEMS:1. Atrial fibrillation.2. Coronary artery disease.3. History of myocardial infarction.4. Essential hypertension.5. Hyperlipidemia.6. Bradycardia.CONSULTANTS: Cardiology.PROCEDURES PERFORMED: During admission: ROSITA.HOSPITAL COURSE: This is a 77-year-old male with a past medical history asabove, who presented as a direct admission from the Cardiology clinic toinitiate sotalol therapy. The patient underwent elective cardioversion onMay 7, and the patient maintained in normal sinus rhythm. The patientwanted to admit the patient for sotalol therapy. He previously had acardioversion back in November, but unfortunately went back into atrialfibrillation. He was initiated on sotalol therapy and his (more content not included)... Chief Complaint and Reason for Visit Chief Complaint 6 month follow up Reason for Visit ASHD (arteriosclerot ic heart disease) Benign prostatic hyperplasia with lower urinary tract symptoms Chronic kidney disease Elevated cholesterol Hypertension Paroxysmal atrial fibrillation Chief Complaint wellness Reason for Visit ASHD (arteriosclerot ic heart disease) Benign prostatic hyperplasia with lower urinary tract symptoms Chronic venous insufficiency of lower extremity Elevated cholesterol Medicare annual wellness visit, subsequent Obesity Paroxysmal atrial fibrillation Primary hypertension Stage 3a chronic kidney disease Type 2 diabetes mellitus with hyperglycemia Additional Source Comments (unrecognized sect ion and content) No Status Records FoundNo Status Records FoundNo Status Records FoundNo Status Records Found INFORMATION SOURCE (unrecogn ized section and content) DATE CREATED AUTHOR 06/16/2018 [facility] DATE CREATED AUTHOR AUTHOR'S ORGANIZ ATION 10/31/[address] [facility] pital DATE CREATED AUTHOR AUTHOR'S ORGANIZ ATION 11/15/2023 [facility] EPIC DATE CREATED AUTHOR AUTHOR'S ORGANIZ ATION 12/17/2023 [facility] REASON FOR VISIT (unrecogniz ed section and content) UA-Burning, Urgency, Frequen cyNo InformationNo InformationWellnessNo InformationLab ResultsBP readingsNo InformationNo InformationNo InformationUpdate Care Teams (unrecognized sec tion and content) Team Status: Active Member Role Status Dates Julio Patton DO Primary Care Provider Active Team Status: Inactive Member Role Status Dates Julio Patton DO Primary Care Provide r, Attending Provider Active Start: September 23, 2023 End: September 23, 2023 Team Status: Inactive Member Role Status Dates Julio Patton DO Primary Care Provide r, Attending Provider Active Start: March 28, 2024 End: March 28, 2024 Goals (unrecognized section and content) Goals may be documented in a n alternate section FOR RECORDS PERTAINING TO PATIENTS WHO ARE OR HAVE BEEN ENROLLED IN A CHEMICAL DEPENDENCY/SUBSTANCEABUSE PROGRAM, SOME INFORMATION MAY BE OMITTED. This clinical summary was aggregated from multiple sources. Caution should be exercised in using it in the provision of clinical care. This summary normalizes information from multiple sources, and as a consequence, information in this document may materially change the coding, format and clinical context of patient data. In addition, data may be omitted in some cases. CLINICAL DECISIONS SHOULD BE BASED ON THE PRIMARY CLINICAL RECORDS. [facility]. provides no warranty or guarantee of the accuracy or completeness of information in this document.
[2024-03-29 09:31] LABS: Basophils Percent Auto 0.5 % (0.2-2.0); Eosinophils Absolute Auto 0.1 10^3/uL (0.0-0.7); Eosinophils Percent Auto 1.5 % (0.9-7.0); Hematocrit 44.2 % (42.0-54.0); Hemoglobin 14.4 g/dL (14.0-18.0); Immature Granulocytes Abs Auto 0.11 10^3/uL (0.00-0.03); Immature Granulocytes Pct Auto 1.3 % (0.0-0.5); Lymphocytes Absolute Auto 2.4 10^3/uL (1.2-3.8); Lymphocytes Percent Auto 27.7 % (20.5-60.0); Mean Corpuscular HGB Conc 32.6 g/dL (29.9-35.2); Mean Corpuscular Hemoglobin 28.1 pg (25.9-34.0); Mean Corpuscular Volume 86.3 fL (80.0-94.0); Mean Platelet Volume 10.6 fL (9.5-13.5); Monocytes Absolute Auto 0.9 10^3/uL (0.3-0.8); Monocytes Percent Auto 10.1 % (1.7-12.0); Neutrophils Absolute Auto 5.1 10^3/uL (1.4-6.5); Neutrophils Percent Auto 58.9 % (43.0-75.0); Platelet Count 203 10^3/uL (150-450); Red Blood Count 5.12 10^6/uL (4.70-6.10); Red Cell Distribution Width 14.4 % (11.0-15.0); White Blood Count 8.7 10^3/uL (4.0-11.0)
[2024-03-29 09:54] LABS: Alanine Aminotransferase 20 U/L (16-63); Albumin Globulin Ratio 0.8; Albumin Level 2.9 g/dL (3.4-5.0); Alkaline Phosphatase 99 U/L (46-116); Anion Gap 7.9; Aspartate Amino Transferase 12 U/L (15-37); Bilirubin Total 0.7 mg/dL (0.2-1.0); Carbon Dioxide 30.5 mmol/L (21.0-32.0); Chloride 101 mmol/L (98-107); Chol HDL Ratio 2.2; Cholesterol 144 mg/dL (<=200); Estimated GFR (African America 51 (>=60); Estimated GFR (Non-African Ame 42 (>=60); Globulin 3.8 g/dL; Glucose 184 mg/dL (74-106); HDL Cholesterol 66 mg/dL (40-60); Potassium 4.4 mmol/L (3.5-5.1); Sodium 135 mmol/L (136-145); Total Protein 6.7 g/dL (6.4-8.2); Triglycerides 123 mg/dL (<=150); VLDL CHOLESTEROL 24.6 mg/dL
== END 2024-03-29 08:56 | disposition home or self-care (01) ==
LOC: LAB 08:57
PROVIDERS: PCP Internal Medicine; Visit Provider Internal Medicine
DX: I48.0 Paroxysmal atrial fibrillation (principal); I25.10 Atherosclerotic heart disease of native coronary artery without angina pectoris; N18.31 Chronic kidney disease, stage 3a; E11.65 Type 2 diabetes mellitus with hyperglycemia; E78.00 Pure hypercholesterolemia, unspecified; I12.9 Hypertensive chronic kidney disease with stage 1 through stage 4 chronic kidney disease, or unspecified chronic kidney disease
CPT/HCPCS: 36415; 80053; 80061; 85025

== ENCOUNTER 2024-08-30 12:03 | Outpatient (OUT) | payer MEDICARE, SELFPAY ==
--- OUTSIDE RECORDS SUMMARY | 2024-08-30 12:17 | XMS_ITS | CCD ---
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 Name Role Phone JULIO PATTON Unavailable Unavailable BALL, JULIO Unavailable Unavailable AHMED, TONIA Unavailable Unavailable AHMED, TONIA Unavailable Unavailable SD Unavailable Unavailable GUNNAR WALLACE Unavailable Unavailable TAMI SQUIRES AM Unavailable Unavailable BALL, JULIO Unavailable Unavailable RHONA, DORIS Unavailable Unavailable COLLINS, JOSE Unavailable Unavailable SD Unavailable Unavailable ELTAHAWY, EHAB A Unavailable Unavailable SD Unavailable Unavailable Dipesh, Deni Unavailable Unavailable Stevo, Julio Unavailable STEVO, DR SHAH Primary Care Unavailable MOUKARBEL, DR [...] Consulting Unavailable PRATIMACHRIS SINCLAIR Consulting Unavailable CHRIS ANDUJAR Attending Unavailable CHRIS ANDUJAR Admitting Unavailable BALL, DR SHAH Primary Care Unavailable BALL, DR SHAH Primary Care Unavailable BALL, DR SHAH Consulting Unavailable BALL, DR SHAH Admitting Unavailable BALL, DR SHAH Attending Unavailable CHRIS ANDUJAR Admitting Unavailable PRATIMA, CHRIS Consulting Unavailable PRATIMA, CHRIS Attending Unavailable BALL, DR SHAH Primary Care [...] Attending Unavailable TAPAN, DR BRASHER Admitting Unavailable PetznKorin delacruz DO Unavailable Julio Patton MD Primary Care Provider KORIN MERCEDES Attending Unavailable KORIN EMRCEDES Attending Unavailable JULIO PATTON Referring Unavailable MICK ROA Attending Unavailable PRATIMA, CHRIS Referring Unavailable PRATIMA, CHRIS Referring Unavailable PRATIMA, CHRIS Attending Unavailable Julio Patton DO Primary Care Provider Allergies Allergy Classification Reported Allergen(s) Allergy Type Date of Onset Reaction(s) Facility (2 sources) Bee/Wasp/Ant venom; Translations: [Bee/Wasp Stings] Propensity to adverse reactions (disorder) 8 AOF [facility] Repository (1 source) bee venom Drug allergy (disorder) [facility] Repository (9 sources) bald-faced hornet venom protein / common wasp venom protein / eastern yellow jacket venom protein / Czech wasp venom protein / southern yellow jacket venom protein / western yellow jacket venom protein / yellow hornet venom protein Drug Allergy Mixed Vespid Venom Protein [facility] Other (1 source) patient allergy list reviewed by nurse or physicia Propensity to adverse reactions 5 Comment:Done [facility] Other (1 source) Allergies Reconciled Propensity to adverse reactions Unknown [facility] Other (3 sources) Bee/Wasp/Ant venom Allergy to substance 8 swelling at site [facility] (6 sources) MIXED VESPID VENOM PROTEIN; Translations: [MIXED VESPID VENOM PROTEIN] Drug Allergy 0 Anaphylaxis [facility] (2 sources) Honey bee venom Propensity to adverse reactions 8 Swelling [facility] (2 sources) Bee Venom Protein (Honey Bee) Propensity to adverse reactions to drug 8 Swelling [facility] Medications Current Medications Medication Drug Class(es) Dates Sig (Normalized) Sig (Original) apixaban 5 mg oral tablet (20 sources) Factor Xa Inhibitor Start: 10-12-2023 End: 04-20-2024 take 1 tablet by mouth twice daily Apixaban (Eliquis) 5 mg tablet Active 0 .ROUTE .COMPLEX 60 April 20, 2024 8:39pm TAKE 1 TABLET BY MOUTH TWICE A DAY Start: 02-24-2018 End: 10-12-2023 take 1 tablet by mouth twice daily Apixaban (Eliquis) 5 mg Tablet Discontinued 5 MG PO Twice daily February 23, 2018 11:00pm October 12, 2023 5:34pm Eliquis Active aspirin 81 mg oral tablet (16 sources) Platelet Aggregation Inhibitor, Nonsteroidal Anti-inflammatory Drug Start: 04-28-2023 take 1 tablet by mouth once daily Aspirin 81 81 MG 1 tablet Orally Once a day for 30 days Mar, Active Start: 02-24-2018 take 1 tablet by ashley th once daily Aspirin 81 mg Tablet,Delayed Release (Dr/Ec) Active 81 MG PO Daily February 23, 2018 11:00pm take 1 tablet by ashley th every twenty-four hours Aspirin 81 MG 1 tablet Orally Once a day Active Aspirin Active DOXAZOSIN MESYLATE, BULK, MISC (2 sources) DOXAZOSIN MESYLA TE, BULK, MISC 4 mg by miscellaneous route 2 (two) times a day. Active finasteride 5 mg oral tablet (18 sources) 5-alpha Reductase Inhibitor Start: take 1 tablet by mouth once daily Finasteride 5 mg tablet Active 0 .ROUTE .COMPLEX 90 March 02, 2024 8:29am TAKE ONE TABLET BY MOUTH ONCE DAILY Start: 02-24-2018 End: 03-02-2024 take 1 tablet by mouth once daily Finasteride 5 mg Tablet Discontinued 5 MG PO Daily February 23, 2018 11:00pm March 02, 2024 8:29am Finasteride Acti ve furosemide 40 mg oral tablet (15 sources) Loop Diuretic Start: 02-16-2024 take 1 tablet by mouth once daily Furosemide 40 mg tablet Active 0 .ROUTE .COMPLEX February 16, 2024 8:33pm TAKE ONE TABLET BY MOUTH DAILY Start: 12-24-2022 End: 02-16-2024 take 1 tablet by mouth once daily Furosemide 40 mg tablet Discontinued 40 MG PO Daily August 17, 2023 12:00am February 16, 2024 8:33pm take 5 tablets by [facility] every twenty-four hours Furosemide 40 MG 5 mL Oral Once a day for 30 days Active gabapentin 300 mg oral capsule (15 sources) Anti-epileptic Agent Start: 02-24-2018 End: 08-08-2024 take 1 capsule by mouth once daily Gabapentin 300 mg capsule Active 300 MG PO Daily August 08, 2024 3:27pm Gabapentin Activ e hydrALAZINE hydrochloride 50 mg oral tablet (2 sources) Arteriolar Vasodilator Start: 09-15-2022 hydrALAZINE (APRESOLINE) 50 mg tablet 09/15/2022 Active 3 ml insulin aspart, human 100 unt/ml pen injector (4 sources) Insulin Analog Start: 04-28-2023 inject 100 [IU] by subcutaneous injection once Fiasp FlexTouch 100 UNIT/ML Per sliding scale Subcutaneous Mar, Active insulin aspart, niacinamide, (FIASP FLEXTOUCH U-100 INSULIN) 100 unit/mL (3 mL) insulin pen Inject under the skin. Sliding Scale Active 3 ml insulin glargine 100 unt/ml pen injector (9 sources) Insulin Analog Start: 12-21-2023 End: 12-20-2024 insulin glargine (Lantus SoloStar) 100 UNIT/ML pen Indications: Type 2 diabetes mellitus with stage 3a chronic kidney disease, with long-term current use of insulin (HCC) ([facility]/HCC) Inject 24 Units under the skin Daily 30 mL 3 12/21/2023 12/20/2024 Active Start: 09-23-2023 Insulin Glargi ne (Lantus Solostar U-100 Insulin) 100 unit/mL (3 mL) insulin pen Active 22 UNIT SUBCUT Every morning September 22, 2023 11:00pm Start: 04-28-2023 Lantus SoloSta r 100 UNIT/ML 22 units Subcutaneous qd for 30 days Mar, Active Start: 08-18-2022 LANTUS SOLOSTA R U-100 INSULIN 100 unit/mL (3 mL) insulin pen INJECT 24 UNITS SUBCUTANEOUSLY ONCE DAILY 08/18/2022 Active lisinopril 10 mg oral tablet (9 sources) Angiotensin Converting Enzyme Inhibitor Start: 09-15-2022 lisinopriL (PRINIVIL,ZESTRIL) 10 mg tablet 09/15/2022 Active lubiprostone 0.024 mg oral capsule (2 sources) Chloride Channel Activator take 1 capsule by mouth twice daily lubiprostone (Amitiza) 24 MCG capsule Take 1 capsule twice a day by oral route. Active polyethylene glycol 3350 16086 mg powder for oral solution (6 sources) Osmotic Laxative Start: 04-28-2023 MiraLax 17 GM/SCOOP 1 scoop mixed with 8 ounces of fluid Orally Once a day for 30 days Mar, Active polyethylene gly col (GLYCOLAX) 17 gram/dose powder Take 17 g by mouth in the morning. Active Polyethylene Glycols (3 sources) Polyethylene Gly col Active rosuvastatin calcium 40 mg oral tablet (18 sources) HMG-CoA Reductase Inhibitor Start: take 1 tablet by mouth once daily in the evening Rosuvastatin 40 mg tablet Active 0 .ROUTE .COMPLEX 90 March 02, 2024 8:29am TAKE ONE TABLET BY MOUTH DAILY IN THE EVENING Start: 02-24-2018 End: 03-02-2024 take 1 tablet by mouth once daily Rosuvastatin 40 mg Tablet Discontinued 40 MG PO Daily February 23, 2018 11:00pm March 02, 2024 8:29am Rosuvastatin Berny cium Active sotalol hydrochloride 120 mg oral tablet (6 sources) Antiarrhythmic Start: 04-28-2023 take 1 tablet by mouth every twelve hours Sotalol HCl 120 MG 1 tablet Orally every 12 hrs for 30 days Mar, Active Start: 04-02-2020 take 1 tablet by ashley th in the morning sotaloL (BETAPACE) 80 mg tablet Take 1 tablet (80 mg total) by mouth in the morning. 04/02/2020 Active tamsulosin hydrochloride 0.4 mg oral capsule (17 sources) alpha-Adrenergic Juliana Start: 05-02-2024 take 1 capsule by mouth twice daily Tamsulosin 0.4 mg capsule Active 0 .ROUTE .COMPLEX 180 May 02, 2024 8:46pm TAKE ONE CAPSULE BY MOUTH TWICE A DAY Start: 04-28-2023 Tamsulosin HCl 0.4 MG 2 Orally Once a day for 30 days Mar, Active Start: 03-27-2020 take 1 capsule by mo uth every twenty-four hours in the morning tamsulosin (Flomax) 0.4 MG 24 hr capsule Indications: Benign prostatic hyperplasia with urinary frequency Take 1 capsule (0.4 mg) by mouth in the morning. 30 capsule 05/14/2023 Active Start: 02-24-2018 End: 05-02-2024 take 1 capsule by mouth once daily Tamsulosin 0.4 mg Capsule Discontinued 0.4 MG PO Daily February 23, 2018 11:00pm May 02, 2024 8:46pm take 1 capsule by mo uth twice daily Tamsulosin HCl 0.4 mg TAKE ONE CAPSULE BY MOUTH TWICE A DAY for 90 Active take 2 capsules by m outh every twenty-four hours Tamsulosin HCl 0.4 MG 2 capsules Orally Once a day Active Tamsulosin HCl A ctive Completed/Discontinued Medications Medication Drug Class(es) Dates Sig (Normalized) Sig (Original) amLODIPine 5 mg oral tablet (6 sources) Dihydropyridine Calcium Channel Juliana Start: 02-24-2018 End: 09-22-2023 take 1 tablet by mouth once daily Amlodipine 5 mg Tablet Discontinued 5 MG PO Daily February 23, 2018 11:00pm September 22, 2023 1:15pm amLODIPine Besyl ate Active 24 hr metoprolol succinate 25 mg extended release oral tablet (6 sources) beta-Adrenergic Juliana Start: 02-24-2018 End: 09-22-2023 take 1 tablet by mouth once daily Metoprolol Succinate 25 mg Tablet Extended Release 24 Hr Discontinued 25 MG PO Daily February 23, 2018 11:00pm September 22, 2023 1:15pm Metoprolol Tartr ate Active sulfamethoxazole 800 mg / trimethoprim 160 mg oral tablet (7 sources) Dihydrofolate Reductase Inhibitor Antibacterial, Sulfonamide Antimicrobial Start: 09-19-2022 take 1 tablet by mouth every twelve hours Bactrim DS 800-160 MG 1 tablet Orally Twice a day for 10 days Aug, Not-Taking 24 hr traMADol hydrochloride 100 mg extended release oral tablet (6 sources) Opioid Agonist Start: 02-24-2018 End: 09-22-2023 take 1 tablet by mouth once daily Tramadol 100 mg Tablet Extended Release 24 Hr Discontinued 100 MG PO Daily February 23, 2018 11:00pm September 22, 2023 1:15pm traMADol HCl Act tiesha Problems Active Problems Problem Classification Problem Date Documented Da te Episodic/Chronic Acute cerebrovascular disease (1 source) Cerebral infarction; Translations: [Cerebral infarction, unspecified] Chronic Acute myocardial infarction (2 sources) Myocardial infarction; Translations: [Acute myocardial infarction, unspecified] Onset: 12-24-2022 11-12-2023 Chronic Cardiac dysrhythmias (20 sources) Unspecified atrial fibrillation; Translations: [Paroxysmal atrial fibrillation] Onset: 12-22-2017 Chronic Chronic kidney disease (16 sources) Chronic kidney disease stage 3A ; Translations: [Stage 3a chronic kidney disease] Onset: 10-22-2023 09-22-2023 Chronic Complication of device; implant or graft (7 sources) Displacement of cardiac electrode, initial encounter; Translations: [Displacement of other cardiac electronic device, initial encounter] Onset: 06-27-2022 Episodic Conduction disorders (4 sources) Presence of cardiac pacemaker; Translations: [Encounter for adjustment and management of automatic implantable cardiac defibrillator] Onset: 06-29-2021 Chronic Comment on above: Dual chamber pacemak er in situ Congestive heart failure; nonhypertensive (2 sources) Acute combined systolic (congestive) and diastolic (congestive) heart failure; Translations: [Acute combined systolic and diastolic heart failure] Onset: 03-31-2022 Chronic Coronary atherosclerosis and other heart disease (20 sources) Old myocardial infarction; Translations: [Atherosclerotic heart disease of [place] coronary artery with unstable angina pectoris] Onset: 09-19-2014 Chronic Comment on above: Echo: LVEF 60%, PHILIPPE, decreased RV function, RVSP 35 - 01/2023 Deficiency and other anemia (1 source) Anemia; Translations: [Anemia, unspecified] Episodic Diabetes mellitus with complications (20 sources) Hyperglycemia due to type 2 diabetes mellitus; Translations: [Type 2 diabetes mellitus with hyperglycemia] Onset: 05-14-2023 Chronic Diabetes mellitus without complication (2 sources) Type 2 diabetes mellitus without complications; Translations: [Type 2 diabetes mellitus without complication] Onset: 10-30-2022 Chronic Disorders of lipid metabolism (20 sources) Hyperlipidemia, unspecified; Translations: [Pure hypercholesterolemi a] Onset: 10-31-2015 Chronic Essential hypertension (20 sources) Essential (primary) hypertension; Translations: [Benign essential hypertension] Onset: 09-19-2014 Chronic Genitourinary symptoms and ill-defined conditions (3 sources) Dysuria; Translations: [Dysuria] Onset: 03-31-2016 Episodic Hyperplasia of prostate (20 sources) Benign prostatic hyperplasia without lower urinary [...] Onset: 01-21-2022 Chronic Other aftercare (1 source) terminal carman (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 aspirin; Translations: [CUSTODIAL (CURRENT) USE OF ASPIRIN] Onset: 06-04-2018 Episodic Other aftercare (1 source) Long-term current use of drug therapy; Translations: [Other care home (current) drug therapy] Episodic Other aftercare (1 source) Long-term current use of anticoagulant; Translations: [terminal carman (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 anticoagulants] Episodic Other aftercare (11 sources) Long-term current use of insulin; Translations: [long-term (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 insulin] 09-22-2023 Episodic Other aftercare (1 source) terminal carman (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 insulin Episodic Other aftercare (1 source) Other care home (current) drug therapy Episodic Other and ill-defined [...] Episodic Other diseases of veins and lymphatics (12 sources) Peripheral venous insufficiency; Translations: [Venous insufficiency (chronic) (peripheral)] 09-22-2023 Episodic Other diseases of veins and lymphatics (3 sources) Venous insufficiency (chronic) (peripheral); Translations: [Venous (peripheral) insufficiency, unspecified] Episodic Other diseases of veins and lymphatics (2 sources) Venous insufficiency of leg; Translations: [Venous insufficiency (chronic) (peripheral)] 09-23-2023 Episodic Other gastrointestinal disorders (1 source) Irritable bowel syndrome characterized by constipation; Translations: [Irritable bowel syndrome with constipation] Onset: 05-24-2018 Chronic Other gastrointestinal disorders (11 sources) Constipation; Translations: [Constipation, unspecified] Episodic Other gastrointestinal disorders (14 sources) Altered bowel function; Translations: [Change in bowel habit] 06-10-2023 Episodic Comment on above: Problem List clean-u p per request of Phys. EHR Cmte Other injuries and conditions due to external [...] idiopathic peripheral neuropathy] Onset: 05-28-2017 Chronic Other nervous system disorders (2 sources) Neuropathy; Translations: [Polyneuropathy, unspecified] Onset: 12-24-2022 11-12-2023 Chronic Other non-traumatic joint disorders (1 source) Arthralgia of the pelvic region and thigh; Translations: [Pain in left hip] Episodic Other nutritional; endocrine; and metabolic disorders (13 sources) Obese class I; Translations: [Body mass index (BMI) 31.0-31.9, adult] Onset: 09-19-2014 Chronic Other nutritional; endocrine; and metabolic disorders (3 sources) Obesity; Translations: [Obesity, unspecified] 09-23-2023 Chronic Other nutritional; endocrine; and metabolic disorders (1 source) Simple obesity ; Translations: [Other obesity due to excess calories] Chronic Other nutritional; endocrine; and metabolic disorders (1 source) Body mass index 30+ - obesity; Translations: [Body mass index 31.0-31.9, adult] Onset: 09-19-2014 Chronic Other nutritional; endocrine; and metabolic disorders (2 sources) Obesity, unspecified; Translations: [Obesity, unspecified] 03-28-2024 Chronic Other nutritional; endocrine; and metabolic disorders (4 sources) Severe obesity; Translations: [Class 2 severe obesity due to excess calories with serious comorbidity and body mass index (BMI) of 36.0 to 36.9 in adult ([facility])] Onset: 05-14-2023 05-16-2024 Chronic Other nutritional; endocrine; and metabolic disorders (12 sources) Weight loss; Translations: [Abnormal weight loss] 09-22-2023 Episodic Other screening for suspected conditions (not mental disorders or infectious disease) (3 sources) Encounter for screening for malignant neoplasm of prostate; Translations: [Patient encounter status] Episodic Peripheral and visceral atherosclerosis (8 sources) Peripheral vascular disease, unspecified; Translations: [Peripheral vascular disease] Onset: 09-15-2022 Resolved: 11-06-2020 Chronic Residual codes; unclassified (1 source) Requires influenza [...] fibrillation; Translations: [Other persistent atrial fibrillation] Onset: 10-22-2023 Viral infection (5 sources) COVID-19; Translations: [Disease caused by 2019-nCoV] Onset: 02-07-2022 Past or Other Problems Problem Classification Problem Date Documented Da te Episodic/Chronic Cardiac dysrhythmias (4 sources) Bradycardia, unspecified; Translations: [BRADYCARDIA UNSPECIFIED] Onset: 05-07-2022 Episodic Chronic kidney disease (1 source) Chronic kidney disease Coronary atherosclerosis and other heart disease (1 [...] Onset: 04-23-2015 Episodic Other aftercare (2 sources) long-term (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 anticoagulants; Translations: [SANITARY CHEMIST (CURRENT) USE OF ANTICOAGULANTS] Onset: 06-04-2018 Episodic Other aftercare (1 source) terminal carman (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 antithrombotics/anti platelets; Translations: [CUSTODIAL (CURRENT) USE OF ANTITHROMBOTICS/ANTI PLATELETS] Onset: 12-22-2017 Episodic Other circulatory disease (1 source) Cardiovascular symptoms; Translations: [Other specified symptoms and signs involving the circulatory and respiratory systems] Resolved: 11-06-2020 Episodic Other circulatory disease (1 source) H/O: cardiovascular disease; Translations: [Personal history of other diseases of the circulatory system] Resolved: 11-06-2020 Episodic Other connective tissue disease (4 sources) Swelling of bilateral lower limbs; Translations: [Other specified soft tissue disorders] Onset: 10-22-2023 10-22-2023 Episodic Other gastrointestinal disorders (1 source) Other [...] and paronychia of toe] Onset: 07-27-2018 Episodic Residual codes; unclassified (2 sources) Tobacco user; [...] Value Interpretation Reference Range Facility Office Visiton 06-07-2024 Follow-up visit [id number] Kalyn Barroso 1940 M Date Provider Department Center 06/07/2024 CHRIS JAFFE [facility] No family history on file Level of Service:93507 [place] OFFICE/OUTPATIENT ESTABLISHED LOW MDM 20 MIN Normal [facility] HbA1c (Bld) [Mass fraction]o n 05-16-2024 Interpretation and review of laboratory results Abnormal [facility] - Hematology and Cell countson 05-16-2024 HbA1c (Bld) [Mass fraction] 8.8 % [facility] Office Visiton 10-22-2023 Follow-up visit [id number] Kalyn Barroso 1940 M Date Provider Department Center 10/22/2023 MICK MELLO JUAN [facility] No family history on file Level of Service:73179 SD OFFICE/OUTPATIENT ESTABLISHED MOD MDM 30 MIN Reason for Visit and Comments: Atrial Fibrillation [80] Congestive Heart Failure [127] Coronary Artery Disease [187] Hypertension [678336] Normal [facility] ECHOCARDIO M/2D COMPLETEon 0 10-24-2022 ECHOCARDIO M/2D COMPLETE Patient: YAJAIRA BARROSO Exam Date: 10/24/2022 : 1940 Gender:M Ordering : CHRIS ANDUJAR Admission #: [id number] Family : DR JULIO PATTON D.O. Order #: [id number] CLICK HERE TO VIEW EXAM ECHOCARDIOGRAM REPORT [...] M.D. on 10/24/2022 at 16:29 Normal [facility] Urinalysis - DIPSTICKon - Appearance (U) cloudy [facility] Other Bilirubin Ql (U) small [facility] Other Color (U) brown [facility] Other Glucose Ql (U) + [facility] Other Hemoglobin Ql (U) Negative [facility] Other Ketones Ql (U) trace [facility] Other Leukocyte esterase Test strip Ql (U) moderate [facility] Other Nitrite Ql (U) Positive [facility] Other pH (U) 6.5 [pH] [facility] Other Protein Ql (U) ++++ [facility] Other Specific gravity (U) [Rel density] 1.000 [facility] Other Urobilinogen (U) [Mass/Vol] 0.2 mg/dL [facility] Other Urinalysis - DIPSTICK [facility] Other PROF CHEM 8 (BAS METB)on Anion gap [Moles/Vol] 7.6 mmol/L Normal [facility] Comment on above: Performed By: #### BMP #### [facility] [address] [place] [address] Dr. Shruti Roper Calcium [Mass/Vol] 8.6 mg/dL Normal 8.5-10.1 [facility] Comment on above: Performed By: #### BMP #### [facility] [address] [address] [address] Shruti Roper Chloride [Moles/Vol] 105 mmol/L Normal 98-107 [facility] Comment on above: Performed By: #### BMP #### [facility] [address] [address] [address] Shruti Roper CO2 [Moles/Vol] 30.7 mmol/L Normal 21.0-32.0 [facility] Comment on above: Performed By: #### BMP #### [facility] [address] [address] [address] Shruti Roper Creatinine [Mass/Vol] 1.18 mg/dL Normal 0.70-1.30 [facility] Comment on above: Performed By: #### BMP #### [facility] [address] [address] [address] Shruti Roper EGFR-AF PALAUAN >60 Normal >=60 [facility] Comment on above: Performed By: #### BMP #### [facility] [address] [address] [address] Shruti Roper EGFR-NON AF PALAUAN 59 mL/min/1.73m2 Critically low >=60 [facility] Comment on above: Performed By: #### BMP #### [facility] [address] [place] [address] Dr. Shruti Roper Glucose [Mass/Vol] 205 mg/dL Critically high 74-106 [facility] Comment on above: Performed By: #### BMP #### [facility] [address] [address] [address] Shruti Roper Potassium [Moles/Vol] 4.3 mmol/L Normal 3.5-5.1 [facility] Comment on above: Performed By: #### BMP #### [facility] [address] [place] [address] Dr. Shruti Roper Sodium [Moles/Vol] 139 mmol/L Normal 136-145 [facility] Comment on above: Performed By: #### BMP #### [facility] [address] [address] [address] Shruti Roper Urea nitrogen [Mass/Vol] 17.0 mg/dL Normal 7.0-18.0 [facility] Comment on above: Performed By: #### BMP #### [facility] [address] [address] [address] Shruti Roper Urea nitrogen/Creati nine [Mass ratio] 14.4 mg/mg Normal [facility] Comment on above: Performed By: #### BMP #### [facility] [address] [address] [address] Shruti Roper CBC AUTO DIFFon 07-04-2022 BASO # 0.0 103/ul Normal 0.0-0.1 [facility] Comment on above: Performed By: #### CBC #### [facility] [address] [address] [address] Shruti Roper Basophils/100 WBC (Bld) 0.4 % Normal 0.2-2.0 [facility] Comment on above: Performed By: #### CBC #### [facility] [address] [place] [address] Dr. Shruti Roper EO # 0.1 103/ul Normal 0.0-0.7 [facility] Comment on above: Performed By: #### CBC #### [facility] [address] [place] [address] Dr. Shruti Roper Eosinophils/100 WBC (Bld) 1.5 % Normal 0.9-7.0 [facility] Comment on above: Performed By: #### CBC #### [facility] [address] [place] [address] Dr. Shruti Roper Erythrocyte distribution width (RBC) [Ratio] 16.0 % Critically high 11.0-15.0 [facility] Comment on above: Performed By: #### CBC #### [facility] [address] [place] [address] Dr. Shruti Roper Hematocrit (Bld) [Volume fraction] 44.5 % Normal 42.0-54.0 [facility] Comment on above: Performed By: #### CBC #### [facility] [address] [place] [address] Dr. Shruti Roper Hemoglobin (Bld) [Mass/Vol] 14.6 g/dL Normal 14.0-18.0 [facility] Comment on above: Performed By: #### CBC #### [facility] [address] [place] [address] Dr. Shruti Roper IG # 0.04 10e3/ul Critically high 0.00-0.03 [facility] Comment on above: Performed By: #### CBC #### [facility] [address] [place] [address] Dr. Shruti Roper IG % 0.4 % Normal 0.0-0.5 [facility] Comment on above: Performed By: #### CBC #### [facility] [address] [place] [address] Dr. Shruti Roper LYMPH # 2.6 103/ul Normal 1.2-3.8 [facility] Comment on above: Performed By: #### CBC #### [facility] [address] [place] [address] Dr. Shruti Roper Lymphocytes/100 WBC (Bld) 26.8 % Normal 20.5-60.0 [facility] Comment on above: Performed By: #### CBC #### [facility] [address] [place] [address] Dr. Shruti Roper MANUAL DIFF REQ NO Normal [facility] Comment on above: Performed By: #### CBC #### [facility] [address] [place] [address] Dr. Shruti Roper MCH (RBC) [Entitic mass] 26.7 pg Normal 25.9-34.0 [facility] Comment on above: Performed By: #### CBC #### [facility] [address] [place] [address] Dr. Shruti Roper MCHC (RBC) [Mass/Vol] 32.8 g/dL Normal 29.9-35.2 [facility] Comment on above: Performed By: #### CBC #### [facility] [address] [place] [address] Dr. Shruti Roper MCV (RBC) [Entitic vol] 81.5 fL Normal 80.0-94.0 [facility] Comment on above: Performed By: #### CBC #### [facility] [address] [place] [address] Dr. Shruti Roper MONO # 1.0 103/ul Critically high 0.3-0.8 [facility] Comment on above: Performed By: #### CBC #### [facility] [address] [place] [address] Dr. Shruti Roper Monocytes/100 WBC (Bld) 10.8 % Normal 1.7-12.0 [facility] Comment on above: Performed By: #### CBC #### [facility] [address] [place] [address] Dr. Shruti Roper NEUT # 5.8 103/ul Normal 1.4-6.5 [facility] Comment on above: Performed By: #### CBC #### [facility] [address] [address] [address] Shruti Roper Neutrophils/100 WBC (Bld) 60.1 % Normal 43.0-75.0 [facility] Comment on above: Performed By: #### CBC #### [facility] [address] [place] [address] Dr. Shruti Roper Platelet mean volume (Bld) [Entitic vol] 10.5 fL Normal 9.5-13.5 [facility] Comment on above: Performed By: #### CBC #### [facility] [address] [place] [address] Dr. Shruti Roper PLT 216 103/ul Normal 150-450 [facility] Comment on above: Performed By: #### CBC #### [facility] [address] [place] [address] Dr. Shruti Roper RBC 5.46 106/ul Normal 4.70-6.10 [facility] Comment on above: Performed By: #### CBC #### [facility] [address] [place] [address] Dr. Shruti Roper WBC 9.6 103/ul Normal 4.0-11.0 [facility] Comment on above: Performed By: #### CBC #### [facility] [address] [place] [address] Dr. Shruti Roper PROF CHEM 8 (BAS METB)on Anion gap [Moles/Vol] 8.9 mmol/L Normal [facility] Comment on above: Performed By: #### BMP ####[facility] [address] [place] [address]Dr. Shruti Roper Calcium [Mass/Vol] 8.6 mg/dL Normal 8.5-10.1 [facility] Comment on above: Performed By: #### BMP ####[facility] [address] [place] [address]Dr. Shruti Roper Chloride [Moles/Vol] 106 mmol/L Normal 98-107 [facility] Comment on above: Performed By: #### BMP ####[facility] [address] [place] [address]Dr. Shruti Roper CO2 [Moles/Vol] 31.3 mmol/L Normal 21.0-32.0 [facility] Comment on above: Performed By: #### BMP ####[facility] [address] [place] [address]Dr. Shruti Roper Creatinine [Mass/Vol] 1.15 mg/dL Normal 0.70-1.30 [facility] Comment on above: Performed By: #### BMP ####[facility] [address] [place] [address]Dr. Shruti Roper EGFR-AF PALAUAN >60 Normal >=60 [facility] Comment on above: Performed By: #### BMP ####[facility] [address] [place] [address]Dr. Shruti Roper EGFR-NON AF PALAUAN >60 Normal >=60 [facility] Comment on above: Performed By: #### BMP ####[facility] [address] [place] [address]Dr. Shruti Roper Glucose [Mass/Vol] 117 mg/dL Critically high 74-106 [facility] Comment on above: Performed By: #### BMP ####[facility] [address]ap[address] [place] [address]Dr. Shruti Roper Potassium [Moles/Vol] 4.2 mmol/L Normal 3.5-5.1 [facility] Comment on above: Performed By: #### BMP ####[facility] [address] [place] [address]Dr. Shruti Roper Sodium [Moles/Vol] 142 mmol/L Normal 136-145 [facility] Comment on above: Performed By: #### BMP ####[facility] [address]fim[address] [place] [id number]. Shruti Roper Urea nitrogen [Mass/Vol] 11.0 mg/dL Normal 7.0-18.0 [facility] Comment on above: Performed By: #### BMP ####[facility] [address]qhah[address]wwds[address] [place] [address]Dr. Shruti Roper Urea nitrogen/Creati nine [Mass ratio] 9.6 mg/mg Normal [facility] Comment on above: Performed By: #### BMP ####[facility] [address]wlmtu[address] [place] [address]Dr. Shruti Roper ELECTROLYTESon 06-24-2022 Anion gap [Moles/Vol] 6.8 mmol/L Normal [facility] Comment on above: Performed By: #### ELEC ####[facility] [address]ts[address] [place] [address]Dr. Shruti Roper Chloride [Moles/Vol] 106 mmol/L Normal 98-107 [facility] Comment on above: Performed By: #### ELEC ####[facility] [address]yfun[address] [place] [address]Dr. Shruti Roper CO2 [Moles/Vol] 32.0 mmol/L Normal 21.0-32.0 [facility] Comment on above: Performed By: #### ELEC ####[facility] [address] [place] [address]Dr. Shruti Roper Potassium [Moles/Vol] 4.8 mmol/L Normal 3.5-5.1 [facility] Comment on above: Performed By: #### ELEC ####[facility] [address]vm[address]udsm[address] [place] [address]Dr. Shruti Roper Sodium [Moles/Vol] 140 mmol/L Normal 136-145 [facility] Comment on above: Performed By: #### ELEC ####[facility] Bywh[address]kih[address] [place] [address]Dr. Shruti Roper PROTIMEon 06-24-2022 INR Coag (PPP) [Relative time] 1.04 {INR} Normal [facility] Comment on above: Performed By: #### PT #### [facility] [address] [place] [address] [id number] [address] Shruti Roper INR GUIDELINES SEE BELOW Normal [facility] Comment on above: Result Comment: DESIRED INR: 2.0 - 3.0 C ONDITIONS NOT LISTED BELOW 2.5 - 3.5 FOR PROSTHETIC HEART VALVE REPLACEMENT 2.5 - 3.5 RECURRENT THROMBOSIS Performed By: #### P T #### [facility] [address] [place], [place] [address] Dr. Shruti Roper PT Coag (PPP) [Time] 11.2 s Normal 9.0-11.6 [facility] Comment on above: Performed By: #### PT #### [facility] [address] [place] [address] [address] [address] Shruti Roper XR CHEST 2 Von [...] SCOTT JOHNSON Date: 2022-06-24 10:36 Normal [facility] XR CHEST 2 Von 05-07-2022 XR [...] by: NICOLE THOMAS Date: 2022-05-07 15:08 Normal [facility] ECHOCARDIO M/2D COMPLETEon 1 ECHOCARDIO M/2D COMPLETE Patient: YAJAIRA BARROSO Exam Date: 04/01/2022 : 1940 Gender:M Ordering : DR JULIO PATTON D.O. Admission #: [id number] Family : BLAINE AKUA Smalls Order #: [id number] CLICK HERE TO VIEW EXAM ECHOCARDIOGRAM REPORT [...] M.D. on 04/02/2022 at 14:45 Normal [facility] PROF CHEM 8 (BAS METB)on Anion gap [Moles/Vol] 11.3 mmol/L Normal [facility] Comment on above: Performed By: #### BMP ####[facility] [address] [place] [id number]. Shruti Roper Calcium [Mass/Vol] 8.8 mg/dL Normal 8.5-10.1 [facility] Comment on above: Performed By: #### BMP ####[facility] [address] [place] [address]Dr. Shruti Roper Chloride [Moles/Vol] 103 mmol/L Normal 98-107 [facility] Comment on above: Performed By: #### BMP ####[facility] Ab[address]amluxol[address] [place] [address]Dr. Shruti Roper CO2 [Moles/Vol] 30.7 mmol/L Normal 21.0-32.0 [facility] Comment on above: Performed By: #### BMP ####[facility] [address] [place] [address]Dr. Shruti Roper Creatinine [Mass/Vol] 1.28 mg/dL Normal 0.70-1.30 [facility] Comment on above: Performed By: #### BMP ####[facility] [address] [place] [address]Dr. Shruti Roper EGFR-AF PALAUAN >60 Normal >=60 [facility] Comment on above: Performed By: #### BMP ####[facility] [address] [place] [address]Dr. Shruti Roper EGFR-NON AF PALAUAN 54 mL/min/1.73m2 Critically low >=60 [facility] Comment on above: Performed By: #### BMP ####[facility] [address] [place] [address]Dr. Shruti Roper Glucose [Mass/Vol] 106 mg/dL Normal 74-106 [facility] Comment on above: Performed By: #### BMP ####[facility] [address]ofth[address] [place] [address]Dr. Shruti Roper Potassium [Moles/Vol] 4.0 mmol/L Normal 3.5-5.1 [facility] Comment on above: Performed By: #### BMP ####[facility] [address]lhd[address] [place] [address]Dr. Shruti Roper Sodium [Moles/Vol] 141 mmol/L Normal 136-145 [facility] Comment on above: Performed By: #### BMP ####[facility] [address] [place] [address]Dr. Shruti Roper Urea nitrogen [Mass/Vol] 18.0 mg/dL Normal 7.0-18.0 [facility] Comment on above: Performed By: #### BMP ####[facility] [address] [place] [address]Dr. Shruti Roper Urea nitrogen/Creati nine [Mass ratio] 14.1 mg/mg Normal [facility] Comment on above: Performed By: #### BMP ####[facility] [address] [place] [address]DrLelo Roper BNPon 03-28-2022 Natriuretic peptide B (Bld) [Mass/Vol] 1722.0 pg/mL Normal <=1,800.0 [facility] Comment on above: Performed By: #### CMP, BNP, TSH ####[facility] [address] [place] [address]DrLelo Roper CBC AUTO DIFFon 03-28-2022 BASO # 0.0 103/ul Normal 0.0-0.1 [facility] Comment on above: Performed By: #### CBC #### [facility] [address] [place] [address] [address] Shruti Roper Basophils/100 WBC (Bld) 0.4 % Normal 0.2-2.0 [facility] Comment on above: Performed By: #### CBC #### [facility] [address] [place] [address] [address] Shruti Roper EO # 0.2 103/ul Normal 0.0-0.7 [facility] Comment on above: Performed By: #### CBC #### [facility] [address] [place] [address] [address] Shruti Roper Eosinophils/100 WBC (Bld) 2.4 % Normal 0.9-7.0 [facility] Comment on above: Performed By: #### CBC #### [facility] [address] [place] [address] [address] Shruti Roper Erythrocyte distribution width (RBC) [Ratio] 14.1 % Normal 11.0-15.0 [facility] Comment on above: Performed By: #### CBC #### [facility] [address] [place] [address] [address] Shruti Roper Hematocrit (Bld) [Volume fraction] 43.1 % Normal 42.0-54.0 [facility] Comment on above: Performed By: #### CBC #### [facility] [address] [place] [address] [address] Shruti Roper Hemoglobin (Bld) [Mass/Vol] 13.4 g/dL Critically low 14.0-18.0 [facility] Comment on above: Performed By: #### CBC #### [facility] [address] [place] [address] Dr. Shruti Roper IG # 0.03 10e3/ul Normal 0.00-0.03 [facility] Comment on above: Performed By: #### CBC #### [facility] [address] [place] [address] [address] Shruti Roper IG % 0.4 % Normal 0.0-0.5 [facility] Comment on above: Performed By: #### CBC #### [facility] [address] [place] [address] [address] Shruti Roper LYMPH # 1.8 103/ul Normal 1.2-3.8 [facility] Comment on above: Performed By: #### CBC #### [facility] [address] [place] [address] [address] Shruti Roper Lymphocytes/100 WBC (Bld) 25.6 % Normal 20.5-60.0 [facility] Comment on above: Performed By: #### CBC #### [facility] [address] [place] [address] [address] Shruti Roper MANUAL DIFF REQ NO Normal [facility] Comment on above: Performed By: #### CBC #### [facility] [address] [address] [address] Shruti Roper MCH (RBC) [Entitic mass] 26.3 pg Normal 25.9-34.0 [facility] Comment on above: Performed By: #### CBC #### [facility] [address] [place] [address] Dr. Shruti Roper MCHC (RBC) [Mass/Vol] 31.1 g/dL Normal 29.9-35.2 [facility] Comment on above: Performed By: #### CBC #### [facility] [address] [place] [address] Dr. Shruti Roper MCV (RBC) [Entitic vol] 84.5 fL Normal 80.0-94.0 [facility] Comment on above: Performed By: #### CBC #### [facility] [address] [place] [address] Dr. Shruti Roper MONO # 0.7 103/ul Normal 0.3-0.8 [facility] Comment on above: Performed By: #### CBC #### [facility] [address] [place] [address] Dr. Shruti Roper Monocytes/100 WBC (Bld) 9.8 % Normal 1.7-12.0 [facility] Comment on above: Performed By: #### CBC #### [facility] [address] [place] [address] Dr. Shruti Roper NEUT # 4.3 103/ul Normal 1.4-6.5 [facility] Comment on above: Performed By: #### CBC #### [facility] [address] [place] [address] Dr. Shruti Roper Neutrophils/100 WBC (Bld) 61.4 % Normal 43.0-75.0 [facility] Comment on above: Performed By: #### CBC #### [facility] [address] [place] [address] Dr. Shruti Roper Platelet mean volume (Bld) [Entitic vol] 11.8 fL Normal 9.5-13.5 [facility] Comment on above: Performed By: #### CBC #### [facility] [address] [place] [address] Dr. Shruti Roper PLT 206 103/ul Normal 150-450 [facility] Comment on above: Performed By: #### CBC #### [facility] [address] [place] [address] Dr. Shruti Roper RBC 5.10 106/ul Normal 4.70-6.10 [facility] Comment on above: Performed By: #### CBC #### [facility] [address] [place] [address] Dr. Shruti Roper WBC 7.0 103/ul Normal 4.0-11.0 [facility] Comment on above: Performed By: #### CBC #### [facility] [address] [place] [address] Dr. Shruti Roper PROF 14(COMP METB)on 022 Albumin [Mass/Vol] 3.1 g/dL Critically low 3.4-5.0 [facility] Comment on above: Performed By: #### CMP, BNP, TSH #### [facility] [address] [place] [address] Dr. Shruti Roper Albumin/Globuli n [Mass ratio] 0.9 {ratio} Normal [facility] Comment on above: Performed By: #### CMP, BNP, TSH #### [facility] [address] [place] [address] Dr. Shruti Roper ALP [Catalytic activity/Vol] 73 U/L Normal 46-116 [facility] Comment on above: Performed By: #### CMP, BNP, TSH #### [facility] [address] [place] [address] Dr. Shruti Roper ALT [Catalytic activity/Vol] 13 U/L Critically low 16-63 [facility] Comment on above: Performed By: #### CMP, BNP, TSH #### [facility] [address] [place] [address] Dr. Shruti Roper Anion gap [Moles/Vol] 8.3 mmol/L Normal [facility] Comment on above: Performed By: #### CMP, BNP, TSH #### [facility] [address] [place] [address] Dr. Shruti Roper AST [Catalytic activity/Vol] 13 U/L Critically low 15-37 [facility] Comment on above: Performed By: #### CMP, BNP, TSH #### [facility] [address] [place] [address] [address] Shruti Roper Bilirubin [Mass/Vol] 1.1 mg/dL Critically high 0.2-1.0 [facility] Comment on above: Performed By: #### CMP, BNP, TSH #### [facility] [address] [place] [address] Dr. Shruti Roper Calcium [Mass/Vol] 8.6 mg/dL Normal 8.5-10.1 [facility] Comment on above: Performed By: #### CMP, BNP, TSH #### [facility] [address] [place] [address] Dr. Shruti Roper Chloride [Moles/Vol] 107 mmol/L Normal 98-107 [facility] Comment on above: Performed By: #### CMP, BNP, TSH #### [facility] [address] [place] [address] Dr. Shruti Roper CO2 [Moles/Vol] 31.7 mmol/L Normal 21.0-32.0 [facility] Comment on above: Performed By: #### CMP, BNP, TSH #### [facility] [address] [place] [address] Dr. Shruti Roper Creatinine [Mass/Vol] 1.13 mg/dL Normal 0.70-1.30 [facility] Comment on above: Performed By: #### CMP, BNP, TSH #### [facility] [address] [place] [address] Dr. Shruti Roper EGFR-AF PALAUAN >60 Normal >=60 [facility] Comment on above: Performed By: #### CMP, BNP, TSH #### [facility] [address] [place] [address] Dr. Shruti Roper EGFR-NON AF PALAUAN >60 Normal >=60 [facility] Comment on above: Performed By: #### CMP, BNP, TSH #### [facility] [address] [place] [address] Dr. Shruti Roper Globulin (S) [Mass/Vol] 3.4 g/dL Normal [facility] Comment on above: Performed By: #### CMP, BNP, TSH #### [facility] [address] [place] [address] Dr. Shruti Roper Glucose [Mass/Vol] 145 mg/dL Critically high 74-106 [facility] Comment on above: Performed By: #### CMP, BNP, TSH #### [facility] [address] [place] [address] Dr. Shruti Roper Potassium [Moles/Vol] 4.0 mmol/L Normal 3.5-5.1 [facility] Comment on above: Performed By: #### CMP, BNP, TSH #### [facility] [address] [place] [address] Dr. Shruti Roper Protein [Mass/Vol] 6.5 g/dL Normal 6.4-8.2 [facility] Comment on above: Performed By: #### CMP, BNP, TSH #### [facility] [address] [place] [address] Dr. Shruti Roper Sodium [Moles/Vol] 143 mmol/L Normal 136-145 [facility] Comment on above: Performed By: #### CMP, BNP, TSH #### [facility] [address] [place] [address] Dr. Shruti Roper Urea nitrogen [Mass/Vol] 17.0 mg/dL Normal 7.0-18.0 [facility] Comment on above: Performed By: #### CMP, BNP, TSH #### [facility] [address] [place] [address] Dr. Shruti Roper Urea nitrogen/Creati nine [Mass ratio] 15.0 mg/mg Normal [facility] Comment on above: Performed By: #### CMP, BNP, TSH #### [facility] [address] [place] [address] Dr. Shruti Roper TSHon 03-28-2022 TSH 2.294 uIU/mL Normal 0.358-3.74 0 [facility] Comment on above: Performed By: #### CMP, BNP, TSH #### [facility] [address] [place], [place] [address] Dr. Shruti Roper XR CHEST 2 Von [...] SCOTT JOHNSON Date: 2022-03-28 13:14 Normal [facility] PROF CHEM 8 (BAS METB)on Anion gap [Moles/Vol] 10.0 mmol/L Normal [facility] Comment on above: Performed By: #### BMP ####[facility] ital [address] [place] [address]Dr. Shruti Roper Calcium [Mass/Vol] 8.8 mg/dL Normal 8.5-10.1 [facility] Comment on above: Performed By: #### BMP ####[facility] ital [address] [place] [address]Dr. Shruti Roper Chloride [Moles/Vol] 105 mmol/L Normal 98-107 [facility] Comment on above: Performed By: #### BMP ####[facility] ital [address]qpthjs[address] [place] [address]Dr. Shruti Roper CO2 [Moles/Vol] 30.6 mmol/L Normal 21.0-32.0 [facility] Comment on above: Performed By: #### BMP ####[facility] ital [address] [place] [address]Dr. Shruti Roper Creatinine [Mass/Vol] 1.24 mg/dL Normal 0.70-1.30 [facility] Comment on above: Performed By: #### BMP ####[facility] ital [address] [place] [address]Dr. Shruti Roper EGFR-AF PALAUAN >60 Normal >=60 [facility] Comment on above: Performed By: #### BMP ####[facility] ital Rpxafjgmsu[address] [place] [address]Dr. Shruti Roper EGFR-NON AF PALAUAN 56 mL/min/1.73m2 Critically low >=60 [facility] Comment on above: Performed By: #### BMP ####[facility] ital V[address]hyksdb[address] [place] [address]Dr. Shurti Roper Glucose [Mass/Vol] 122 mg/dL Critically high 74-106 [facility] Comment on above: Performed By: #### BMP ####[facility] ital Yiadaysgyu[address] [place] [address]Dr. Shruti Judson Potassium [Moles/Vol] 4.6 mmol/L Normal 3.5-5.1 [facility] Comment on above: Performed By: #### BMP ####[facility] ital [address]vmcuyxpwp[address] [place] [address]Dr. Shruti Judson Sodium [Moles/Vol] 141 mmol/L Normal 136-145 [facility] Comment on above: Performed By: #### BMP ####[facility] [address]ttesj[address] [place] [address]Dr. Shruti Judson Urea nitrogen [Mass/Vol] 18.0 mg/dL Normal 7.0-18.0 [facility] Comment on above: Performed By: #### BMP ####[facility] ital [address]qu[address]egfc[address] [place] [address]Dr. Shruti Judson Urea nitrogen/Creati nine [Mass ratio] 14.5 mg/mg Normal [facility] Comment on above: Performed By: #### BMP ####[facility] [facility] ital [id number] [place] [address]Dr. Shruti Roper US CAROTID ART BILon 022 [...] NICOLE THOMAS Date: 2022-01-22 06:43 Normal [facility] XR LSPINE 2_3 VIEWSon 2021 XR LSPINE 2_3 VIEWS EXAMINATION: XR LSPINE 2_3 VIEWS HISTORY: Low back pain COMPARISON: No relevant comparison available. FINDINGS: BONES: 2 mm retrolisthesis of L2 on L3 and L3 on L4. Mild degenerative spondylosis. Bakx-ct-zrsdjugh facet osteoarthropathy. DISC SPACES: Normal. No significant disc height narrowing, subluxation, or endplate abnormality. PARASPINOUS: Negative. No paraspinous abnormality is seen. OTHER: Vascular calcification IMPRESSION: Mohg-oq-nfyjlora degenerative changes Electronically authenticated by: NICOLE THOMAS Date: 2021-12-02 20:57 Normal [facility] BASIC METABOLIC PANELon 12-0 Calcium mass conc 9.0 mg/dL Normal 8.6-10.3 [facility] Comment on above: Order Comment: No: Do not add to previou s draw Performed By: #### 0 0071, 19006, 71833 ####[facility] [facility] [place] [place] [address], [facility] Chloride molar conc 104 mmol/L Normal 98-107 [facility] Comment on above: Order Comment: No: Do not add to previou s draw Performed By: #### 0 0071, 54738, 25867 ####[facility] [place] [address], [facility] CO2 molar conc 25 mmol/L Normal 21-31 [facility] Comment on above: Order Comment: No: Do not add to previou s draw Performed By: #### 0 0071, 86641, 58634 ####[facility] [place] [address], [facility] Creatinine mass conc 1.02 mg/dL Normal 0.70-1.30 [facility] Comment on above: Order Comment: No: Do not add to previou s draw Performed By: #### 0 0071, 30499, 48944 ####[facility] [place] [address], [facility] GFR/1.73 sq M predicted among blacks MDRD vol rate/area (S/P/Bld) mL/min/{1.73_m2} Normal >60 [facility] Comment on above: Order Comment: No: Do not add to previou s draw Result Comment: Calc ulation may not be valid for patients over 70 years Performed By: #### 0 0071, 28711, 30611 ####[facility] [place] [address], [facility] GFR/1.73 sq M predicted among non-blacks MDRD vol rate/area (S/P/Bld) mL/min/{1.73_m2} Normal >60 [facility] Comment on above: Order Comment: No: Do not add to previou s draw Result Comment: Calc ulation may not be valid for patients over 70 years Performed By: #### 0 0071, 95792, 76804 ####[facility] [place] [address], [facility] Glucose mass conc 123 mg/dL High 70-100 [facility] Comment on above: Order Comment: No: Do not add to previou s draw Performed By: #### 0 0071, 35315, 64512 ####[facility] Potassium molar conc 3.9 mmol/L Normal 3.5-5.1 [facility] Comment on above: Order Comment: No: Do not add to previou s draw Performed By: #### 0 0071, 33554, 07992 ####[facility] [facility].[address] Sodium molar conc 137 mmol/L Normal 136-145 [facility] Comment on above: Order Comment: No: Do not add to previou s draw Performed By: #### 0 0071, 49845, 33322 ####[facility] [facility].[address] Urea nitrogen mass conc 14 mg/dL Normal 7-25 [facility] Comment on above: Order Comment: No: Do not add to previou s draw Performed By: #### 0 1, , 40238 ####[facility] [facility].[address] CBC W/DIFFon 06-06-2018 ABS BASOPHILS 0.0 10*3/uL Normal 0.0-0.2 [facility] Comment on above: Order Comment: No: Do not add to previou s draw Performed By: #### 0 0071, , 76446 ####[facility] [facility].[address] ABS IMM GRANS 0.0 10*3/uL Normal 0.0-0.2 [facility] Comment on above: Order Comment: No: Do not add to previou s draw Performed By: #### 0 0071, , 83083 ####[facility] [facility].[address] ABS NEUTROPHILS 4.4 10*3/uL Normal 1.6-7.6 [facility] Comment on above: Order Comment: No: Do not add to previou s draw Performed By: #### 0 007, , 16837 ####[facility] [place] [address], [facility] Basophils Auto #/vol (Bld) 0.4 % Normal 0.0-1.0 [facility] Comment on above: Order Comment: No: Do not add to previou s draw Performed By: #### 0 007, , 04496 ####[facility] [place] [address], [facility] Eosinophils Auto #/vol (Bld) 0.2 10*3/uL Normal 0.0-0.5 [facility] Comment on above: Order Comment: No: Do not add to previou s draw Performed By: #### 0 70, , 18067 ####[facility] Eosinophils/100 WBC Auto (Bld) 1.9 % Normal 0.0-6.0 [facility] Comment on above: Order Comment: No: Do not add to previou s draw Performed By: #### 0 70, , 99968 ####[facility] Erythrocyte distribution width Auto Ratio (RBC) 12.9 % Normal 11.5-15.0 [facility] Comment on above: Order Comment: No: Do not add to previou s draw Performed By: #### 0 70, , 79300 ####[facility] Hematocrit Auto Volume Fraction (Bld) 39.2 % Normal 39.0-50.0 [facility] Comment on above: Order Comment: No: Do not add to previou s draw Performed By: #### 0 007, , 73370 ####[facility] Hemoglobin mass conc (Bld) 13.2 g/dL Normal 13.0-17.0 [facility] Comment on above: Order Comment: No: Do not add to previou s draw Performed By: #### 0 007, 68416, 58763 ####[facility] [facility].[address] IMMATURE GRANS 0.1 % Normal 0.0-1.0 [facility] Comment on above: Order Comment: No: Do not add to previou s draw Performed By: #### 0 007, , 90750 ####[facility] Lymphocytes Auto #/vol (Bld) 4.1 10*3/uL High 1.2-4.0 [facility] Comment on above: Order Comment: No: Do not add to previou s draw Performed By: #### 0 70, , 54442 ####[facility] Lymphocytes/100 WBC Auto (Bld) 43.0 % Normal 20.0-45.0 [facility] Comment on above: Order Comment: No: Do not add to previou s draw Performed By: #### 0 70, , 99653 ####[facility] MCH Auto Entitic mass (RBC) 27.6 pg Normal 27.0-33.0 [facility] Comment on above: Order Comment: No: Do not add to previou s draw Performed By: #### 0 0071, , 14537 ####[facility] [facility].[address] MCHC Auto mass conc (RBC) 33.7 g/dL Normal 32.0-35.0 [facility] Comment on above: Order Comment: No: Do not add to previou s draw Performed By: #### 0 007, 68581, 90594 ####[facility] MCV Auto Entitic volume (RBC) 82.0 fL Normal 82.0-98.0 [facility] Comment on above: Order Comment: No: Do not add to previou s draw Performed By: #### 0 007, , 12468 ####[facility] Monocytes Auto #/vol (Bld) 0.8 10*3/uL Normal 0.1-1.0 [facility] Comment on above: Order Comment: No: Do not add to previou s draw Performed By: #### 0 70, , 24676 ####[facility] [facility] MONOS 8.3 % Normal 5.0-12.0 [facility] Comment on above: Order Comment: No: Do not add to previou s draw Performed By: #### 0 70, , 25784 ####[facility] [facility] Neutrophils/100 WBC Auto (Bld) 46.3 % Normal 40.0-72.0 [facility] Comment on above: Order Comment: No: Do not add to previou s draw Performed By: #### 0 70, , 89959 ####[facility] Nucleated RBC/100 WBC Ratio (Bld) 0 % Normal 0-0 [facility] Comment on above: Order Comment: No: Do not add to previou s draw Performed By: #### 0 007, , 98212 ####[facility] [place] [address], [facility] PLAT CNT 239 10*3/uL Normal 150-400 [facility] Comment on above: Order Comment: No: Do not add to previou s draw Performed By: #### 0 0071, 06978, 51448 ####[facility] [place] [address], [facility] RBC Auto #/vol (Bld) 4.78 10*6/uL Normal 4.20-5.70 [facility] Comment on above: Order Comment: No: Do not add to previou s draw Performed By: #### 0 0071, 04264, 48611 ####[facility] [place] [address], [facility] WBC Auto #/vol (Bld) 9.54 10*3/uL Normal 4.00-10.60 [facility] Comment on above: Order Comment: No: Do not add to previou s draw Performed By: #### 0 0071, 43546, 55335 ####[facility] [place] [address], [facility] BASIC METABOLIC PANELon 12-0 Calcium mass conc 8.7 mg/dL Normal 8.6-10.3 [facility] Comment on above: Order Comment: No: Do not add to previou s draw Performed By: #### 0 0071, 87312, 32123 ####[facility] [place] [address], [facility] Chloride molar conc 104 mmol/L Normal 98-107 [facility] Comment on above: Order Comment: No: Do not add to previou s draw Performed By: #### 0 0071, 46212, 00908 ####[facility] [place] [address], [facility] CO2 molar conc 30 mmol/L Normal 21-31 [facility] Comment on above: Order Comment: No: Do not add to previou s draw Performed By: #### 0 0071, 99685, 05351 ####[facility] [place] [address], [facility] Creatinine mass conc 0.99 mg/dL Normal 0.70-1.30 [facility] Comment on above: Order Comment: No: Do not add to previou s draw Performed By: #### 0 0071, 39791, 95154 ####[facility] [place] [address], [facility] GFR/1.73 sq M predicted among blacks MDRD vol rate/area (S/P/Bld) mL/min/{1.73_m2} Normal >60 [facility] Comment on above: Order Comment: No: Do not add to previou s draw Result Comment: Calc ulation may not be valid for patients over 70 years Performed By: #### 0 0071, 35072, 13638 ####[facility] [place] [address], [facility] GFR/1.73 sq M predicted among non-blacks MDRD vol rate/area (S/P/Bld) mL/min/{1.73_m2} Normal >60 [facility] Comment on above: Order Comment: No: Do not add to previou s draw Result Comment: Calc ulation may not be valid for patients over 70 years Performed By: #### 0 0071, 27907, 25125 ####[facility] [place] [address], [facility] Glucose mass conc 112 mg/dL High 70-100 [facility] Comment on above: Order Comment: No: Do not add to previou s draw Performed By: #### 0 0071, 45184, 21050 ####[facility] [place] [address], [facility] Potassium molar conc 3.9 mmol/L Normal 3.5-5.1 [facility] Comment on above: Order Comment: No: Do not add to previou s draw Performed By: #### 0 0071, 26002, 61071 ####[facility] Sodium molar conc 138 mmol/L Normal 136-145 [facility] Comment on above: Order Comment: No: Do not add to previou s draw Performed By: #### 0 0071, 77506, 06254 ####[facility] [facility].[address] Urea nitrogen mass conc 14 mg/dL Normal 7-25 [facility] Comment on above: Order Comment: No: Do not add to previou s draw Performed By: #### 0 0071, 20055, 94339 ####[facility] [facility].[address] CBC COMPLETE BLOOD COUNTon 1 08-06-2017 Erythrocyte distribution width Auto Ratio (RBC) 13.0 % Normal 11.5-15.0 [facility] Comment on above: Order Comment: No: Do not add to previou s draw Performed By: #### 0 70, , 79357 ####[facility] [facility].[address] Hematocrit Auto Volume Fraction (Bld) 40.4 % Normal 39.0-50.0 [facility] Comment on above: Order Comment: No: Do not add to previou s draw Performed By: #### 0 0071, , 54735 ####[facility] [facility] Hemoglobin mass conc (Bld) 13.3 g/dL Normal 13.0-17.0 [facility] Comment on above: Order Comment: No: Do not add to previou s draw Performed By: #### 0 0071, 06057, 22889 ####[facility] [place] [address], [facility] MCH Auto Entitic mass (RBC) 27.3 pg Normal 27.0-33.0 [facility] Comment on above: Order Comment: No: Do not add to previou s draw Performed By: #### 0 0071, , 39683 ####[facility] [facility].[address] MCHC Auto mass conc (RBC) 32.9 g/dL Normal 32.0-35.0 [facility] Comment on above: Order Comment: No: Do not add to previou s draw Performed By: #### 0 007, , 39290 ####[facility] [facility] MCV Auto Entitic volume (RBC) 83.0 fL Normal 82.0-98.0 [facility] Comment on above: Order Comment: No: Do not add to previou s draw Performed By: #### 0 70, , 25347 ####[facility] [facility].[address] Nucleated RBC/100 WBC Ratio (Bld) 0 % Normal 0-0 [facility] Comment on above: Order Comment: No: Do not add to previou s draw Performed By: #### 0 70, , 45544 ####[facility] [facility].[address] PLAT CNT 233 10*3/uL Normal 150-400 [facility] Comment on above: Order Comment: No: Do not add to previou s draw Performed By: #### 0 007, , 53404 ####[facility] [facility].[address] RBC Auto #/vol (Bld) 4.87 10*6/uL Normal 4.20-5.70 [facility] Comment on above: Order Comment: No: Do not add to previou s draw Performed By: #### 0 007, , 61612 ####[facility] [place] [address], [facility] WBC Auto #/vol (Bld) 8.97 10*3/uL Normal 4.00-10.60 [facility] Comment on above: Order Comment: No: Do not add to previou s draw Performed By: #### 0 0071, 57761, 69731 ####[address] [place] [address], [facility] Cardiovascular Lab Reporton 06-05-2018 Cardiovascular Lab Report [facility] MR #: [id number] of Physician: Gunnar Wallace M.D.Division of Service Date: 06/04/2018Cardiology Birthdate: [birth year]Adult Cardiovascular Room #: 3CD [id number] [place], [place] [address]Cndyz Fax Cardiovascular Laboratory ReportMrLelo Barroso is a patient that I see in [place]. He has had problems withatrial fibrillation. I [...] A Gunnar Wallace M.D.Date Dict: 06/04/2018/12:56 P/Gunnar Wallace M.D.Date Trans: 06/05/2018 03:36 A/mmoDN_JN:[id number]: Julio Patton D.O. [address] [place] [address] A [facility] [id number] Normal [facility] MAGNESIUM BLOODon 06-05-2018 Magnesium mass conc 2.1 mg/dL Normal 1.9-2.7 [facility] Comment on above: Order Comment: No: Do not add to previou s draw Performed By: #### 0 0071, 26613, 68463 ####[facility] PHOSPHORUS BLOODon 8 Phosphate mass conc 3.0 mg/dL Normal 2.5-5.0 [facility] Comment on above: Order Comment: No: Do not add to previou s draw Performed By: #### 0 0071, 31336, 38398 ####[facility] History and Physicalon 06-04 History and Physical MR[id number] Y[facility]so Admitted: 06/04/2018 Date of : 1940 [...] count, WBC 9.1, hemoglobin 14.3, platelet 252, oiricoptze65.1. EKG sinus rhythm with first-degree AV block.ASSESSMENT:1. [...] 06/04/2018/01:34 P/Xin Elliott M.D.Date Trans: 06/04/2018 02:27 P/mmoDN_JN:[id number] Normal [facility] CBC COMPLETE BLOOD COUNTon 12-23-2017 Erythrocyte distribution width Auto Ratio (RBC) 13.6 % Normal 11.5-15.0 [facility] Comment on above: Order Comment: No: Do not add to previou s draw Performed By: #### 0 007, , 65470 ####[facility] Hematocrit Auto Volume Fraction (Bld) 43.2 % Normal 39.0-50.0 [facility] Comment on above: Order Comment: No: Do not add to previou s draw Performed By: #### 0 0071, 16224, 20976 ####[facility] [place] [address], [facility] Hemoglobin mass conc (Bld) 14.3 g/dL Normal 13.0-17.0 [facility] Comment on above: Order Comment: No: Do not add to previou s draw Performed By: #### 0 0071, 26005, 71865 ####[facility] [place] [address], [facility] MCH Auto Entitic mass (RBC) 27.9 pg Normal 27.0-33.0 [facility] Comment on above: Order Comment: No: Do not add to previou s draw Performed By: #### 0 0071, 25494, 70096 ####[facility] [place] [address], [facility] MCHC Auto mass conc (RBC) 33.1 g/dL Normal 32.0-35.0 [facility] Comment on above: Order Comment: No: Do not add to previou s draw Performed By: #### 0 0071, 99394, 89049 ####[facility] MCV Auto Entitic volume (RBC) 84.2 fL Normal 82.0-98.0 [facility] Comment on above: Order Comment: No: Do not add to previou s draw Performed By: #### 0 0071, , 75865 ####[facility] Nucleated RBC/100 WBC Ratio (Bld) 0 % Normal 0-0 [facility] Comment on above: Order Comment: No: Do not add to previou s draw Performed By: #### 0 70, , 63088 ####[facility] PLAT CNT 223 10*3/uL Normal 150-400 [facility] Comment on above: Order Comment: No: Do not add to previou s draw Performed By: #### 0 70, , 78958 ####[facility] RBC Auto #/vol (Bld) 5.13 10*6/uL Normal 4.20-5.70 [facility] Comment on above: Order Comment: No: Do not add to previou s draw Performed By: #### 0 0071, , 69798 ####[facility] WBC Auto #/vol (Bld) 10.61 10*3/uL High 4.00-10.60 [facility] Comment on above: Order Comment: No: Do not add to previou s draw Performed By: #### 0 007, , 95745 ####[facility] COMP METABOLIC PANELon 12-23 Albumin mass conc 3.2 g/dL Low 3.5-5.7 [facility] Comment on above: Order Comment: No: Do not add to previou s draw Performed By: #### 0 0071, 53988, 54382 ####[facility] [place] [address], [facility] ALKALINE PHOSPH 85 IU/L Normal 34-104 [facility] Comment on above: Order Comment: No: Do not add to previou s draw Performed By: #### 0 0071, 80471, 20507 ####[facility] [place] [address], [facility] ALT enzyme act/vol 15 U/L Normal 7-52 [facility] Comment on above: Order Comment: No: Do not add to previou s draw Performed By: #### 0 0071, 56962, 14760 ####[facility] [place] [address], [facility] AST enzyme act/vol 15 U/L Normal 13-39 [facility] Comment on above: Order Comment: No: Do not add to previou s draw Performed By: #### 0 0071, 53673, 64613 ####[facility] [place] [address], [facility] Bilirubin mass conc 0.8 mg/dL Normal 0.3-1.0 [facility] Comment on above: Order Comment: No: Do not add to previou s draw Performed By: #### 0 0071, 08924, 05401 ####[facility] [place] [address], [facility] Calcium mass conc 8.6 mg/dL Normal 8.6-10.3 [facility] Comment on above: Order Comment: No: Do not add to previou s draw Performed By: #### 0 0071, 40213, 28189 ####[facility] [place] [address], [facility] Chloride molar conc 105 mmol/L Normal 98-107 [facility] Comment on above: Order Comment: No: Do not add to previou s draw Performed By: #### 0 0071, 25574, 25978 ####[facility] [place] [address], [place] CO2 molar conc 25 mmol/L Normal 21-31 [facility] Comment on above: Order Comment: No: Do not add to previou s draw Performed By: #### 0 0071, , 17982 ####[facility] [place] [address], [facility] Creatinine mass conc 1.32 mg/dL High 0.70-1.30 [facility] Comment on above: Order Comment: No: Do not add to previou s draw Performed By: #### 0 0071, , 02417 ####[facility] [place] [address], [place] GFR/1.73 sq M predicted among blacks MDRD vol rate/area (S/P/Bld) mL/min/{1.73_m2} Normal >60 [facility] Comment on above: Order Comment: No: Do not add to previou s draw Result Comment: Calc ulation may not be valid for patients over 70 years Performed By: #### 0 0071, , 73798 ####[facility] [place] [address], [facility] GFR/1.73 sq M predicted among non-blacks MDRD vol rate/area (S/P/Bld) 53 ml/min/1.73sq m Abnormal >60 [facility] Comment on above: Order Comment: No: Do not add to previou s draw Result Comment: Calc ulation may not be valid for patients over 70 years Performed By: #### 0 0071, , 58826 ####[facility] [place] [address], [facility] Glucose mass conc 80 mg/dL Normal 70-100 [facility] Comment on above: Order Comment: No: Do not add to previou s draw Performed By: #### 0 0071, 28912, 01856 ####[facility] [place] [address], [facility] Potassium molar conc 4.4 mmol/L Normal 3.5-5.1 [facility] Comment on above: Order Comment: No: Do not add to previou s draw Performed By: #### 0 0071, 81044, 11339 ####[facility] [place] [address], [facility] Protein mass conc 5.4 g/dL Low 6.0-8.3 [facility] Comment on above: Order Comment: No: Do not add to previou s draw Performed By: #### 0 0071, , [id number] ####[facility] [place] [address], [facility] Sodium molar conc 136 mmol/L Normal 136-145 [facility] Comment on above: Order Comment: No: Do not add to previou s draw Performed By: #### 0 0071, , 62947 ####[facility] [place] [address], [facility] Urea nitrogen mass conc 23 mg/dL Normal 7-25 [facility] Comment on above: Order Comment: No: Do not add to previou s draw Performed By: #### 0 0071, 23625, 37512 ####[facility] [place] [address], [place] MAGNESIUM BLOODon 12-23-2017 Magnesium mass conc 2.1 mg/dL Normal 1.9-2.7 [facility] Comment on above: Order Comment: No: Do not add to previou s draw Performed By: #### 0 0071, 03994, 72084 ####[facility] [facility] PHOSPHORUS BLOODon 8 Phosphate mass conc 4.5 mg/dL Normal 2.5-5.0 [facility] Comment on above: Order Comment: No: Do not add to previou s draw Performed By: #### 0 0071, 87352, 31299 ####[facility] [facility] UFH HEPARIN ASSAYon 12-24-19 18 UNFRACTIONATED HEPARIN 0.59 IU/mL Normal 0.30-0.70 [facility] Comment on above: Result Comment: Rivaroxaban and Apixaban will interfere with the anti Xa assay used tomonitor UFH and LMWH. Performed By: #### 0 0071, 76769, 13095 ####[facility]3000 [facility].[address] APTTon 12-22-2017 aPTT Coag time (Bld) 34.1 s Normal 25.0-35.0 [facility] Comment on above: Result Comment: ALL RESULTS [...] THIS PURPOSE. Performed By: #### 5 6101, 73695 ####[facility]3000 [facility].[address] BASIC METABOLIC PANELon 11-28 Calcium mass conc 9.2 mg/dL Normal 8.6-10.3 [facility] Comment on above: Order Comment: No: Do not add to previou s draw Performed By: #### 0 0071, 12792, 66532 ####[facility] [place] [address], [facility] Chloride molar conc 98 mmol/L Normal 98-107 [facility] Comment on above: Order Comment: No: Do not add to previou s draw Performed By: #### 0 0071, 21914, 65537 ####[facility] [place] [address], [facility] CO2 molar conc 24 mmol/L Normal 21-31 [facility] Comment on above: Order Comment: No: Do not add to previou s draw Performed By: #### 0 0071, 39982, 26192 ####[facility] [place] [address], [facility] Creatinine mass conc 0.96 mg/dL Normal 0.70-1.30 [facility] Comment on above: Order Comment: No: Do not add to previou s draw Performed By: #### 0 0071, 26746, 03058 ####[facility] [place] [address], [facility] GFR/1.73 sq M predicted among blacks MDRD vol rate/area (S/P/Bld) mL/min/{1.73_m2} Normal >60 [facility] Comment on above: Order Comment: No: Do not add to previou s draw Result Comment: Calc ulation may not be valid for patients over 70 years Performed By: #### 0 0071, 42941, 41581 ####[facility] [place] [address], [facility] GFR/1.73 sq M predicted among non-blacks MDRD vol rate/area (S/P/Bld) mL/min/{1.73_m2} Normal >60 [facility] Comment on above: Order Comment: No: Do not add to previou s draw Result Comment: Calc ulation may not be valid for patients over 70 years Performed By: #### 0 0071, 16798, 52084 ####[facility] Glucose mass conc 99 mg/dL Normal 70-100 [facility] Comment on above: Order Comment: No: Do not add to previou s draw Performed By: #### 0 0071, 37657, 83790 ####[facility] [facility].[address] Potassium molar conc 3.4 mmol/L Low 3.5-5.1 [facility] Comment on above: Order Comment: No: Do not add to previou s draw Performed By: #### 0 0071, 13478, 23974 ####[facility] [facility].[address] Sodium molar conc 129 mmol/L Low 136-145 [facility] Comment on above: Order Comment: No: Do not add to previou s draw Performed By: #### 0 0071, 62831, 99548 ####[facility] [facility].[address] Urea nitrogen mass conc 18 mg/dL Normal 7-25 [facility] Comment on above: Order Comment: No: Do not add to previou s draw Performed By: #### 0 0071, 93959, 70511 ####[facility] [facility].[address] CBC W/DIFFon 12-22-2017 ABS BASOPHILS 0.1 10*3/uL Normal 0.0-0.2 [facility] Comment on above: Performed By: #### [id number] ####[facility] [facility].[address] ABS IMM GRANS 0.0 10*3/uL Normal 0.0-0.2 [facility] Comment on above: Performed By: #### 15634 ####[facility] ABS NEUTROPHILS 5.7 10*3/uL Normal 1.6-7.6 [facility] Comment on above: Performed By: #### 74009 ####[facility] [facility] Basophils Auto #/vol (Bld) 0.4 % Normal 0.0-1.0 [facility] Comment on above: Performed By: #### 53666 ####[facility] [facility].[address] Eosinophils Auto #/vol (Bld) 0.2 10*3/uL Normal 0.0-0.5 [facility] Comment on above: Performed By: #### 28085 ####[facility] Eosinophils/100 WBC Auto (Bld) 1.3 % Normal 0.0-6.0 [facility] Comment on above: Performed By: #### 18025 ####[facility] Erythrocyte distribution width Auto Ratio (RBC) 13.3 % Normal 11.5-15.0 [facility] Comment on above: Performed By: #### 53494 ####[facility] Hematocrit Auto Volume Fraction (Bld) 46.3 % Normal 39.0-50.0 [facility] Comment on above: Performed By: #### 55862 ####[facility] Hemoglobin mass conc (Bld) 15.6 g/dL Normal 13.0-17.0 [facility] Comment on above: Performed By: #### 72163 ####[facility] IMMATURE GRANS 0.3 % Normal 0.0-1.0 [facility] Comment on above: Performed By: #### 29447 ####[facility] Lymphocytes Auto #/vol (Bld) 4.6 10*3/uL High 1.2-4.0 [facility] Comment on above: Performed By: #### 58819 ####[facility] Lymphocytes/100 WBC Auto (Bld) 39.8 % Normal 20.0-45.0 [facility] Comment on above: Performed By: #### 76653 ####[place] [address] [address] MCH Auto Entitic mass (RBC) 27.8 pg Normal 27.0-33.0 [facility] Comment on above: Performed By: #### [address]5801 ####[address] MCHC Auto mass conc (RBC) 33.7 g/dL Normal 32.0-35.0 [facility] Comment on above: Performed By: #### 27992 ####[place] [address] MCV Auto Entitic volume (RBC) 82.5 fL Normal 82.0-98.0 [facility] Comment on above: Performed By: #### 35584 ####[place] [address] Monocytes Auto #/vol (Bld) 1.0 10*3/uL Normal 0.1-1.0 [facility] Comment on above: Performed By: #### 55948 ####[address] MONOS 8.7 % Normal 5.0-12.0 [facility] Comment on above: Performed By: #### 01281 ####[facility] [facility] [place] [place] [address], [facility] Neutrophils/100 WBC Auto (Bld) 49.5 % Normal 40.0-72.0 [facility] Comment on above: Performed By: #### 04605 ####[facility] [facility].[address] Nucleated RBC/100 WBC Ratio (Bld) 0 % Normal 0-0 [facility] Comment on above: Performed By: #### 61267 ####[facility] PLAT CNT 244 10*3/uL Normal 150-400 [facility] Comment on above: Performed By: #### 73408 ####[place] [address] RBC Auto #/vol (Bld) 5.61 10*6/uL Normal 4.20-5.70 [facility] Comment on above: Performed By: #### 46560 ####[place] [address] WBC Auto #/vol (Bld) 11.61 10*3/uL High 4.00-10.60 [facility] Comment on above: Performed By: #### 61012 ####[address] Cardiovascular Lab Reporton 12-22-2017 Cardiovascular Lab Report [facility]: [id number] Physician: Scotty Arguelles,Department of M.D.Medicine Service Date: 12/22/2017Division of Birthdate: 1Cardiology Room #: 3CD [id number] [place] [address]Phone Fax Cardiovascular Laboratory ReportFINAL IMPRESSIONS:1. Patent stent [...] factor modification.3. Optimization medical management; aspirin, beta juliana, statin, and angiotensin-converting enzyme inhibitor are indicated.4. Further recommendations deferred to the inpatient services.PROCEDURES: Limited femoral angiography, bilateral selective coronaryangiography, placement of a 6-Moldovan MynxGrip closure device.METHODS: After risks, benefits, and alternatives were explained, writteninformed consent was obtained. The patient was prepped and draped in usualsterile fashion over both groins. Using 1% lidocaine solution, localinfiltration anesthesia was achieved. Using modified Seldinger technique,access to the right common femoral artery was obtained. A 6-Moldovan 11 cmsheath was inserted. Baseline femoral angiography was performed.Bilateral selective coronary angiography was performed using JL4 and [id number]. After reviewing the images, it was elected to conclude theprocedure.A 6-Moldovan MynxGrip closure device was deployed per protocol achievingoptimal hemostasis. Overall, the patient tolerated the procedure well.There were no overt complications. [facility] was to be [facility] in stable condition.FINDINGS: Hemodynamics:AO: 136/73 (98).LEFT VENTRICULOGRAPHY: [...] 12/22/2017/01:46 P/Scotty Arguelles M.D.Date Trans: 12/22/2017 04:28 P/[id number]: Julio Patton D.O. [address] [facility] [address] [facility] [id number] Doris Pérez D.O. [address] [facility] [address] Normal [facility] HEMOGLOBIN A1Con 12-22-2017 Glucose mass conc 160 mg/dL High 70-126 [facility] Comment on above: Order Comment: Yes: Add to Previous draw if able Performed By: #### 4 6447 ####[facility] Hemoglobin A1c/Hemoglobin. total mass fraction (Bld) 7.2 % High 4.0-6.0 [facility] Comment on above: Order Comment: Yes: Add to Previous draw if able Performed By: #### 4 6447 ####[facility] MAGNESIUM BLOODon 12-22-2017 Magnesium mass conc 2.4 mg/dL Normal 1.9-2.7 [facility] Comment on above: Order Comment: Yes: Add to Previous draw if able Performed By: #### 3 5200, 85043 ####[facility] PROTHROMBIN TIMEon 8 INR Coag RelTime (PPP) 1.07 {INR} Normal 0.91-1.16 [facility] Comment on above: Result Comment: ACCCP RECOMMENDED INR FO R WARFARIN THERAPY CONDITION INRPROPHYLAXIS OF VENOUS THROMBOSIS 2-3(HIGH-RISK SURGERY)TREATMENT OF VENOUS THROMBOSIS 2-3TREATMENT OF PULMONARY EMBOLISM 2-3PREVENTION OF SYSTEMIC EMBOLISM: 2-3 ACUTE MYOCARDIAL INFARCTION TISSUE HEART VALVES VALVULAR HEART DISEASE ATRIAL FIBRILLATION RECURRENT SYSTEMIC EMBOLISMMECHANICAL HEART VALVE 2.5-3.5 FROM: ORAL ANTICOAGULANTS. MECHANISM OF ACTION, CLINICALEFFECTIVENESS, AND OPTIMAL THERAPEUTIC RANGE. [id number]. Performed By: #### 5 6101, 00265 ####[facility] Prothrombin time (PT) Coag time (PPP) 13.9 s Normal 12.3-14.8 [facility] Comment on above: Result Comment: ALL RESULTS MUST BE INTE RPRETED WITH RESPECT TO BLOOD DRAWING ARTIFACTOR DILUTION ERROR OF ANTICOAGULANT AT THE TIME OF SAMPLING. Performed By: #### 5 6101, 02301 ####[facility] TROPONIN-Ion 12-22-2017 Troponin I.cardiac mass conc 0.01 ng/mL Normal 0.00-0.04 [facility] Comment on above: Order Comment: No: Do not add to previou s draw Result Comment: REFE RENCE RANGES: 0.00 - 0.04 ng/ml NORMAL 0.05 - 0.50 ng/ml INDETERMINATE > 0.50 ng/ml CONSISTENT WITH AN M.I. Performed By: #### 3 5200, 87128 ####[facility]3000 [facility].[address] Troponin I.cardiac mass conc 0.01 ng/mL Normal 0.00-0.04 [facility] Comment on above: Order Comment: No: Do not add to previou s draw Result Comment: REFE RENCE RANGES: 0.00 - 0.04 ng/ml NORMAL 0.05 - 0.50 ng/ml INDETERMINATE > 0.50 ng/ml CONSISTENT WITH AN M.I. Performed By: #### 0 0071, 27152, 77210 ####[facility] [facility].[address] TSH WITH REFLEXon 12-22-2017 Thyrotropin Qn 2.93 MICRO-IU/ML Normal 0.34-5.60 [facility] Comment on above: Performed By: #### 11258, 59029, 50929 # ###[place] [address] [facility].[address] UFH HEPARIN ASSAYon 12-23-19 18 UNFRACTIONATED HEPARIN 0.49 IU/mL Normal 0.30-0.70 [facility] Comment on above: Result Comment: Rivaroxaban and Apixaban will interfere with the anti Xa assay used tomonitor UFH and LMWH. Performed By: #### 0 0071, 14889, 76363 ####[place] [address] [facility].[address] UNFRACTIONATED HEPARIN 0.69 IU/mL Normal 0.30-0.70 [facility] Comment on above: Result Comment: Rivaroxaban and Apixaban will interfere with the anti Xa assay used tomonitor UFH and LMWH. Performed By: #### 3 0477 ####[place] [address] Vital Signs Date Time Vital Sign Value Performing Clinician Facility 08-29-2024 11:23-0500 Body height 175.26 cm [facility] 08-29-2024 11:23-0500 Body mass index (BMI) [Ratio] 35.2 kg/m2 [facility] 08-29-2024 11:23-0500 Body temperature 97.6 [degF] [facility] 08-29-2024 11:23-0500 Body weight 108.06 kg [facility] 08-29-2024 11:23-0500 Diastolic blood pressure 75 mm[Hg] [facility] 08-29-2024 11:23-0500 Heart rate 84 /min [facility] 08-29-2024 11:23-0500 Respiratory rate 18 /min [facility] 08-29-2024 11:23-0500 SaO2% (BldA) [Mass fraction] 95 % [facility] 08-29-2024 11:23-0500 Systolic blood pressure 117 mm[Hg] [facility] 05-16-2024 14:01-0500 Body height 173.4 cm Korin Petznick DO Work Phone: [facility] 05-16-2024 14:01-0500 Body mass index (BMI) [Ratio] 36.07 kg/m2 Korin Petznick DO Work Phone: [facility] 05-16-2024 14:01-0500 Body temperature 97.7 [degF] Korin Petznick DO Work Phone: [facility] 05-16-2024 14:01-0500 Body weight 108.41 kg Korin Petznick DO Work Phone: [facility] 05-16-2024 14:01-0500 Diastolic blood pressure 64 mm[Hg] Korin Petznick DO Work Phone: [facility] 05-16-2024 14:01-0500 Heart rate 79 /min Korin Petznick DO Work Phone: [facility] 05-16-2024 14:01-0500 SaO2% (BldA) [Mass fraction] 97 % Korin Petznick DO Work Phone: [facility] 05-16-2024 14:01-0500 Systolic blood pressure 122 mm[Hg] Korin Petznick DO Work Phone: [facility] 03-28-2024 10:39-0400 Body height 175.26 cm [facility] 03-28-2024 10:39-0400 Body mass index (BMI) [Ratio] 34.6 kg/m2 [facility] 03-28-2024 10:39-0400 Body weight 106.31 kg [facility] 03-28-2024 10:39-0400 Diastolic blood pressure 79 mm[Hg] [facility] 03-28-2024 10:39-0400 Heart rate 81 /min [facility] 03-28-2024 10:39-0400 Respiratory rate 12 /min [facility] 03-28-2024 10:39-0400 Systolic blood pressure 142 mm[Hg] [facility] 11-26-2023 09:21-0400 Diastolic blood pressure 90 mm[Hg] Oliver Fitzgerald MD Work Phone: [facility] 11-26-2023 09:21-0400 Heart rate 76 /min Oliver Fitzgerald MD Work Phone: [facility] 11-26-2023 09:21-0400 Systolic blood pressure 143 mm[Hg] Oliver Fitzgerald MD Work Phone: [facility] 11-26-2023 09:20-0400 Body mass index (BMI) [Ratio] 33.76 kg/m2 Oliver Fitzgerald MD Work Phone: [facility] 11-26-2023 09:20-0400 Body weight 103.69 kg Oliver Fitzgerald MD Work Phone: [facility] 11-26-2023 09:20-0400 SaO2% (BldA) [Mass fraction] 98 % Oliver Fitzgerald MD Work Phone: [facility] 10-22-2023 09:21-0400 Body height 175.3 cm Oliver Fitzgerald MD Work Phone: [facility] 10-22-2023 09:21-0400 Body mass index (BMI) [Ratio] 34.7 kg/m2 Oliver Fitzgerald MD Work Phone: [facility] 10-22-2023 09:21-0400 Body weight 106.59 kg Oliver Fitzgerald MD Work Phone: [facility] 10-22-2023 09:21-0400 Diastolic blood pressure 88 mm[Hg] Oliver Fitzgerald MD Work Phone: [facility] 10-22-2023 09:21-0400 Heart rate 79 /min Oliver Fitzgerald MD Work Phone: [facility] 10-22-2023 09:21-0400 Systolic blood pressure 143 mm[Hg] Oliver Fitzgerald MD Work Phone: [facility] 09-23-2023 11:07-0400 Body height 175.26 cm [facility] 09-23-2023 11:07-0400 Body mass index (BMI) [Ratio] 35.3 kg/m2 [facility] 09-23-2023 11:07-0400 Body weight 108.46 kg [facility] 09-23-2023 11:07-0400 Diastolic blood pressure 81 mm[Hg] [facility] 09-23-2023 11:07-0400 Heart rate 82 /min [facility] 09-23-2023 11:07-0400 Respiratory rate 16 /min [facility] 09-23-2023 11:07-0400 Systolic blood pressure 141 mm[Hg] [facility] 03-25-2023 11:00-0400 Body height 175.26 cm Julio Ball Other [facility] [employer] Other 03-25-2023 11:00-0400 Body mass index (BMI) [Ratio] 34.64 kg/m2 Julio Ball Other [employer] [facility] [employer] Other 03-25-2023 11:00-0400 Body weight 106.41 kg Julio Ball Other [employer] [facility] [employer] Other 03-25-2023 11:00-0400 Diastolic blood pressure 85 mm[Hg] Julio Patton Other [employer] Other 03-25-2023 11:00-0400 Respiratory rate 12 /min Julio Patton Other [employer] Other 03-25-2023 11:00-0400 Systolic blood pressure 142 mm[Hg] Julio Patton Other [employer] Other Encounters Encounter Date Encounter Type Care Provider Facility Start: 08-29-2024 End: 08-29-2024 ambulatory [facility] Work Phone: Start: 08-29-2024 End: 08-29-2024 Patient encounter procedure [facility] Work Phone: Start: 06-07-2024 End: 06-07-2024 ambulatory [facility] Start: 05-16-2024 End: 05-16-2024 Office outpatient visit 25 minutes Korin Mercedes DO Work Phone: [facility] 230 Comment on above: Class 2 severe obesi ty due to excess calories with serious comorbidity and body mass index (BMI) of 36.0 to 36.9 in adult (CMS/HCC) (Primary Dx); Type 2 diabetes mellitus with other circulatory complications ([facility]); Type 2 diabetes mellitus with stage 3a chronic kidney disease, with long-term current use of insulin (HCC) ([facility]) Start: 05-16-2024 End: 05-16-2024 ambulatory KORIN MERCEDES Not Available Start: 03-28-2024 End: 03-28-2024 ambulatory [facility] Work Phone: Start: 03-28-2024 End: 03-28-2024 Patient encounter procedure [facility] Physician [facility] Work Phone: Start: 03-26-2024 Patient encounter procedure [facility] Start: 12-15-2023 End: 12-15-2023 ambulatory CHRIS [facility] Start: 11-26-2023 End: 11-26-2023 Office outpatient visit 15 minutes Oliver Fitzgerald MD Work Phone: [facility] Comment on above: Swelling of both low er extremities (Primary Dx) Start: 11-12-2023 End: 11-12-2023 ambulatory KORIN MERCEDES Not Available Start: 10-22-2023 End: 10-22-2023 ambulatory MICK [facility] Start: 10-22-2023 End: 10-22-2023 Office outpatient visit 15 minutes Oliver Fitzgerald MD Work Phone: [facility] Comment on above: Severe claudication (CMS-HCC) (Primary Dx); Swelling of both lower extremities Start: 09-23-2023 End: 09-23-2023 ambulatory [facility] Work Phone: Start: 09-23-2023 End: 09-23-2023 Patient encounter procedure [facility] Work Phone: Start: 05-27-2023 End: 05-27-2023 ambulatory Julio Ball Other [employer] Other Start: 05-27-2023 Telephone encounter Julio Ball [facility] Start: 04-28-2023 End: 04-28-2023 ambulatory Julio Ball Other [employer] Other Start: 04-28-2023 Telephone encounter Julio Ball FP [facility] Start: 04-27-2023 End: 04-27-2023 ambulatory Julio Ball Other [employer] Other Start: 04-27-2023 Telephone encounter Julio Ball FP [facility] Start: 04-20-2023 End: 04-20-2023 ambulatory Julio Ball Other [employer] Other Start: 04-20-2023 Telephone encounter Julio Ball FP [facility] Start: 03-27-2023 End: 03-27-2023 ambulatory Julio Patton Other [employer] Other Start: 03-27-2023 Telephone encounter Julio Patton [facility] Start: 03-26-2023 End: 03-26-2023 ambulatory Juilo Patton Other [employer] Other Start: 03-26-2023 Telephone encounter Julio RESENDIZ [facility] Start: 03-25-2023 End: 03-25-2023 ambulatory Julio Patton Other [employer] Other Start: 03-25-2023 Patient encounter procedure Julio Patton [facility] Start: 02-16-2023 End: 02-16-2023 ambulatory Julio Patton Other [employer] Other Start: 02-16-2023 Telephone encounter Julio Patton [facility] Start: 12-03-2022 End: 12-03-2022 ambulatory Julio Patton Other [employer] Other Start: 12-03-2022 Telephone encounter Julio RESENDIZ [facility] Start: 10-24-2022 End: 10-25-2022 ambulatory CHRIS ANDUJAR Facility:[facility] Start: 09-19-2022 End: 09-19-2022 ambulatory Julio Patton Other [employer] Other Start: 09-19-2022 Nursing evaluation o f patient and report Julio Patton [facility] Start: 09-15-2022 End: 09-16-[address] JULIO PATTON Facility:[facility] Start: 09-02-2022 End: 09-03-2022 ambulatory CHRIS ANDUJAR Facility:[facility] Start: 07-04-2022 End: 07-05-[address] [...] PATTON Facility:[facility] Start: 03-26-2021 Adult health examination Lei Patton Other [employer] Other Start: 06-04-2018 End: 06-06-2018 Evaluation and management of inpatient JULIO PATTON Facility:[facility] Start: 12-22-2017 End: 12-23-2017 Evaluation and management of inpatient TAMI SQUIRES Facility:[facility] Procedures Date Procedure Procedure Detail Performing Clinician Start: 05-16-2024 Hemoglobin glycosylated a1c Korin Mercedes DO Work Phone: Start: 06-04-2018 Rastafari of Cardi ac Rhythm, Single GUNNAR WALLACE Start: 12-22-2017 FLUOROSCOPY OF MULTI PLE CORONARY ARTERIES USING OTH CONTRAST SCOTTY ARGUELLES Start: 12-22-2017 Rastafari of Cardi ac Rhythm, Single DENI DIPESH Start: 12-22-2017 ULTRASONOGRAPHY OF R IGHT AND LEFT HEART, TRANSESOPHAGEAL DENI DIPESH Start: 10-31-2015 Screening for malign ant neoplasm of colon Julio Patton Other Start: 09-19-2014 Screening for malign ant neoplasm of prostate Julio Patton Other Depression screening Tiffani Patton Other Plan of Treatment Date Care Activity Detail Author Start: 12-01-2024 End: 12-01-2024 Patient encounter procedure 12/01/2024 9:00 AM EDT Office Visit [facility] [address] [place] [address] Oliver Fitzgerald MD [address], [address] [address] [facility] Start: 11-25-2024 Adult BMI Screening Adult BMI Screen ing [facility] Start: 11-25-2024 Tobacco Screening Tobacco Screening [facility] Start: 10-21-2024 Adult BMI Screening Adult BMI Screen ing [facility] Start: 10-21-2024 Tobacco Screening Tobacco Screening [facility] Start: 09-15-2024 End: 09-15-2024 Patient encounter procedure 09/15/2024 2:15 PM EDT Office Visit [facility] [address] [email or web address] [address] [place] [id number] Korin Mercedes DO [address] [facility] [address] [place] [address] [facility] [address] Start: 08-16-2024 Hemoglobin A1c measurement Diabetes: Hemoglobin A1C [facility] Start: 02-28-2024 Influenza vaccination Influenza Vacc ine [facility] Start: 11-05-2023 End: 11-05-2023 Patient encounter procedure 11/05/2023 1:20 PM EDT Office Visit [facility] [address] [place] [address] Oliver Fitzgerald MD [address], [address] [address] [facility] Start: 10-22-2023 End: 10-21-2024 US.doppler Extremity arteries - bilateral for physiologic artery study Vas art doppler lwr bilat mult lev/PVR Vascular Ultrasound Routine Severe claudication ([facility]) Expected: 10/22/2023, Expires: 10/21/2024 [facility] Work Phone: Comment on above: Expected: 10/22/2023 , Expires: 10/21/2024 Start: 05-02-2023 Urine screening for protein Diabetes: Urine Protein Screening [facility] Start: 04-04-2023 DTaP,Tdap and Td Vac cines (2 - Td or Tdap) DTaP,Tdap and Td Vaccines (2 - Td or Tdap) [facility] [facility] Start: 12-02-2022 ambulatory Ambulatory Facility:H 1 Start: 11-14-2014 Administration of varicella zoster vaccine Zoster (Shingles) Vaccine (2 of 3) [facility] Start: 2005 Fall Risk Screening Fall Risk Screen ing [facility] Start: 1958 Adult BMI Follow Up Plan Adult BMI Follow Up Plan [facility] Start: 1952 Depression Screening Depression Scre ening [facility] Start: 1950 Glaucoma screening Diabetes: R etinopathy Screening [facility] Start: 1940 Medicare Annual Well ness (AWV) Medicare Annual Wellness (AWV) [facility] Start: 1940 Medicare Annual Well ness Visit Medicare Annual Wellness Visit [facility] Comprehensive metabo lic 2000 panel - Serum or Plasma [facility] Immunizations Immunization Date Immunization Notes Care Provider Fa aure 03-28-2024 influenza, high dose seasonal, preservative-free [facility] 03-25-2023 influenza virus vaccine, unspecified formulation [facility] 03-25-2023 influenza, high dose seasonal, preservative-free Julio Patton Other [employer] Other 05-02-2022 COVID-19 Pfizer (Pediatric) Julio Patton Other [facility] 05-02-2022 influenza virus vaccine, split virus (incl. purified surface antigen) Julio Patton Other [employer] Other 05-02-2022 influenza virus vaccine, unspecified formulation [facility] 05-02-2022 Influenza, High-dose Seasonal, Quadrivalent, Preservative Free Korin Mercedes DO Work Phone: [facility] 09-26-2021 COVID-19 Vaccine Pfi zer - Documentation Purposes Only Julio Patton Other [facility] 03-22-2021 influenza virus vaccine, split virus (incl. purified surface antigen) Julio Patton Other [employer] Other 03-22-2021 influenza virus vaccine, unspecified formulation [facility] 03-12-2020 influenza virus vaccine, split virus (incl. purified surface antigen) Julio Patton Other [employer] Other 03-12-2020 influenza virus vaccine, unspecified formulation [facility] 04-01-2019 influenza virus vaccine, split virus (incl. purified surface antigen) Julio Patton Other [facility] [employer] Other 04-01-2019 influenza virus vaccine, unspecified formulation [facility] 03-09-2018 influenza virus vaccine, split virus (incl. purified surface antigen) Julio Patton Other [facility] [employer] Other 03-09-2018 influenza virus vaccine, unspecified formulation [facility] 03-09-2018 Seasonal trivalent influenza vaccine, adjuvanted, preservative free Korin Petznick DO Work Phone: [facility] 03-31-2017 influenza virus vaccine, split virus (incl. purified surface antigen) Julio Patton Other [facility] [employer] Other 03-31-2017 influenza virus vaccine, unspecified formulation [facility] 03-31-2017 influenza, high dose seasonal, preservative-free Korin Petznick DO Work Phone: [facility] 04-17-2016 influenza virus vaccine, split virus (incl. purified surface antigen) Julio Patton Other [employer] Other 04-17-2016 influenza virus vaccine, unspecified formulation [facility] 04-17-2016 influenza, high dose seasonal, preservative-free Korin Petznick DO Work Phone: [facility] 11-05-2015 pneumococcal conjuga te vaccine, 13 valent Julio Patton Other [facility] 09-19-2014 zoster vaccine, live Korin Sauloick DO Work Phone: [facility] 09-19-2014 zoster vaccine, unspecified formulation Oliver Fitzgerald MD Work Phone: [employer] 04-04-2013 tetanus and diphther ia toxoids, adsorbed, preservative free, for adult use (5 Lf of tetanus toxoid and 2 Lf of diphtheria toxoid) Julio Patton Other [facility] 11-10-2012 pneumococcal polysaccharide vaccine, 23 valent Jluio Patton Other [facility] Payers Date Payer Category Payer Medicaid AETNA MEDICARE A DVANTAGE [id number] 2021 Medicare AETNA MEDICARE A ETNA MEDICARE PLAN (PPO) [id number] 2021-Present [phone] [address] [place] [address] [id number] 1959 Medicare [id number] 1940 Unknown [id number] 2.16.840.1.139424.3.579.2. 647 1940 Unknown [id number] 2.16.840.1.405863.3.579.2. 647 1940 Unknown [id number] 2.16.840.1.929823.3.579.2. 593 1940 Unknown [id number] 2.16.840.1.224940.3.579.2. 593 1940 Unknown [id number] 2.16.840.1.548774.3.579.2. 593 1940 Unknown [id number] 2.16.840.1.457851.3.579.2. 593 1940 Unknown [id number] 2.16.840.1.353248.3.579.2. 593 1940 Unknown [id number] 2.16.840.1.725382.3.579.2. 593 1940 Unknown [id number] 2.16.840.1.293929.3.579.2. 593 1940 Unknown [id number] 2.16.840.1.140410.3.579.2. 593 1940 Unknown [id number] 2.16.840.1.033339.3.579.2. 593 1940 Unknown [id number] 2.16.840.1.476445.3.579.2. 593 1940 Unknown [id number] 2.16.840.1.039636.3.579.2. 593 1940 Unknown [id number] 2.16.840.1.538456.3.579.2. 593 1940 Unknown [id number] 2.16.840.1.314660.3.579.2. 593 1940 Unknown [id number] 2.16.840.1.189183.3.579.2. 593 1940 Unknown [id number] 2.16.840.1.927748.3.579.2. 593 1940 Unknown [id number] 2.16.840.1.585995.3.579.2. 1259 1940 Unknown [id number] 2.16.840.1.123896.3.579.2. 1259 Medicare [id number] Private Health Insurance [id number] Self-pay Self Pay [id number] Social History Date Type Detail Facility Unknown if ever smoked [employer] Other Start: 07-12-2020 End: 11-12-2023 Sex Assigned At [facility] Other Start: 09-23-2023 End: 09-23-2023 Tobacco smoking status MOIS Never smoked tobacco (finding) [facility] Start: 1940 Sex Assigned At Male [facility] Start: 11-12-2023 Tobacco smoking status [facility] Ex-smoker [facility] History of tobacco use Current smoker [facility] History of tobacco use Cigarette Smoker [facility] Start: 11-12-2023 Tobacco use and exposure Smokeless tobacco non-user [facility] Start: 05-16-2024 Alcoholic beverage intake Lifetime non-drinker (finding) [facility] Start: 07-12-2020 End: 11-12-2023 History of Social function [facility] How often to you hav e a drink containing alcohol? Never [facility] How many standard drinks containing alcohol do you have on a typical day? Patient does not drink [facility] Start: 1940 Sex assigned at Not on file [facility] [employer] Start: 04-09-2023 Tobacco smoking status [facility] Tobacco smoking consumption unknown [facility] Start: 10-22-2023 End: 11-26-2023 Alcoholic beverage intake Defer [facility] Start: 08-29-2024 Sex Male (finding) [facility] Medical Equipment Procedure Code Equipment Code Equipment Origin al Text Equipment Identifier Dates Inject 1 each un jory the skin in the morning and 1 each at noon and 1 each in the evening and 1 each before bedtime. [id number] Start: 04-20-2023 Clinical Notes 06-01-2018 to 06-07-2024 Korin Mccabe Jesus, DO - 05/16/2024 8:46 PM Terry Mercedes, DO - 05/16/2024 2:00 PM Gus Fitzgerald MD - 11/26/2023 9:40 AM EDDenise Fitzgerald MD - 10/22/2023 9:20 AM EDT Note Date & Type Note Facility 06-07-2024 Note [facility] Electrophysiology Consult Note Reason for visit: follow up , s/p atrial lead dislodgment with extraction of old lead and reimplantation of new lead 07/08/2022 , s/p [facility]CCV at [facility] for afib 06/07/24 Denies chest pain, palpitations, lightheadedness/syncope, and bleeding on Eliquis. Says his REDDY remains unchanged. Had OSWALD's in October, and routine labs w/ lipid panel in Mar 2024. Had device check today showing normal function. Feels well. No complaints 02/24/23 HPI: Patient here for follow-up s/p cardioversion for A-fib. I performed this device check myself on 02/24/2023 and noted the there was retrograde VA conduction causing it to be detected in the atrial channel. he does have wrangell conduction and management of the device he had significant sinus node dysfunction with sinus bradycardia in the 40s with wrangell QRS. however he does have AV Wenckebach [...] on sotalol and tolerating medication well - [facility] [place] [address] ------- 4/18/23 HPI: Patient here for follow-up s/p RA lead extraction and reimplantation of new lead on 07/08/2019. Device check 10/14/2022 reveals normal function and thresholds are revealed he is in persistent A-fib. He was placed on sSotalol 80mg bid and is now paced at 60bpm. Patient has shortness of breath, REDDY, orthopnea. Fatigue+ Prior HPI: Yajaira Barroso is a 83 y.o. year old with past medical history of Afib was admitted to [facility] and was noted to have bradycardia. initial plans for cardioversion was aborted and he underwent a dual-chamber Biotronik pacemaker implant by Dr. Armenta on 05/06/22. subsequently he was advised to have a cardioversion done as an outpatient. today presented to [facility] for cardioversion and at that time [...] Determinants of Health Tobacco Use: Medium Risk (05/16/2024) Received from [email or web address] Patient History Smoking Tobacco Use: Former Smokeless Tobacco Use: Never Passive Exposure: Not on file Alcohol Use: Not At Risk (11/12/2023) Received from [facility], [facility] [email or web address] AUDIT-C Frequency of Alcohol Consumption: Never Average Number of Drinks: Patient does not drink Frequency of Binge Drinking: Never Financial Resource Strain: Not on file Food Insecurity: No Food Insecurity (11/26/2023) Received from [facility] Hunger Screening Within the past 12 months we worried whether our food would run out before we got money to buy more.: Never True Within the past 12 months the food we bought just didn't last and we didn't have money to get more.: Never True Transportation Needs: Not on file Physical Activity: Not on file Stress: Not on file Social Connections: Not on file Intimate Partner Violence: Unknown (08/20/2023) [place] Safety & Environment Fear of Current or Ex-Partner: Not on file Emotionally Abused: Not on file Physically Abused: Not on file Sexually Abused: Not on file Physically or Sexually Abused: Not on file Depression: Not at risk (05/16/2024) Received from [facility] PHQ-2 Patient Health Questionnaire-2 Score: 0 Housing Stability: Not on file Utilities: Not on file Health Literacy: Not on file Allergies: Allergies Allergen Reactions [...] in the morning. 30 tablet 2 insulin aspart (NovoLOG, Fiasp) 100 (more content not included)... [facility] 05-16-2024 History of Present illness Narrative Associated Problem(s): Type 2 diabetes mellitus with other circulatory complications ([facility]) During the appointment today all pertinent labs, imaging, health maintenance, and glucose readings were reviewed. Encouraged to check blood glucose throughout the day with some fasting and some PP readings. They are to bring their glucose meter/cgm in to all appointments. All of the patients questions, treatment options, and current care plan and goals were discussed. A copy of this along with pertinent instructions were given to the patient at the end of the appointment. The patient voices understanding of all of this and is to call in between appointments if they have any problems or questions. Yajaira Barroso is struggling to gain control of their diabetes. I am very concerned for diabetes related complications. , The patient is wearing their cgm on a daily basis and making decisions in regards to adjusting insulin daily as well for at least the last 60 days , Discussed dietary changes at length. Encouraged to limit simple carbs and focus more on healthy protein/fat with all meals and snacks. They should also avoid any sugary drinks. , Instructions given today include: Insulin instructions and Dietary education. He needs to work better on his diet to improve control. Recommend limiting eating out and discussed easy options that he doesn't have to do a lot of cooking. Images from the original note were not included. Yajaira Barroso is a 83 y.o. male presents with chief complaint of Diabetes HPI: Diabetes Mellitus Follow-up: Yajaira Barroso is here for follow-up evaluation of diabetes mellitus. The initial diagnosis of diabetes was made 08/2021 Diabetes complications: none He has been checking his blood glucose with a Dexcom CGM - READER- on a daily basis. Running smooth but high in the 180-220 range most of the day. Tends to spike up more in the evening. Last A1c: 7.6 (11/12/23) Last eye exam: Current concerns include: States bg levels are higher than last visit. He has been eating more fast food. He has been visiting his a couple times a day in the shelter. States he doesn't care about eating healthy. He only eats out about 3-4 days a week. Usually gets a burger from [employer]. Diet: none Drinks: water, tea with milk and black coffee Exercise: none Hypoglycemia: none SUBJECTIVE: PROBLEM LIST SOCIAL ALLERGIES: Patient Active Problem List Diagnosis Type 2 diabetes mellitus with stage 3a chronic kidney disease, with long-term current use of insulin (HCC) ([facility]) Class 2 severe obesity due to excess calories with serious comorbidity and body mass index (BMI) of 36.0 to 36.9 in adult ([facility]) Stage 3a chronic kidney disease (HCC) (CMS/HCC) Neuropathy Myocardial infarction (CMS/HCC) Essential hypertension (CMS/HCC) Elevated cholesterol (CMS/HCC) Coronary artery disease involving wrangell coronary artery of wrangell heart without angina pectoris ([facility]/HCC) Benign prostatic hyperplasia with lower urinary tract symptoms Paroxysmal atrial fibrillation ([facility]/HCC) Type 2 diabetes mellitus with other circulatory complications ([facility]) Social History Tobacco Use Smoking status: Former Types: Cigarettes Smokeless tobacco: Never Substance Use Topics Alcohol use: Never Drug use: Never Allergies Allergen Reactions Bee Venom Swelling Synopsis [facility] 05/16/2024 14:19 Antidiabetic medications Insulin Glargine 24 Units Daily SC Labs MHPT A1C 8.8 Outpatient prescription Medication marked as long-term REVIEW OF SYMPTOMS: Review of Systems Constitutional: Positive for fatigue. Negative for appetite change and unexpected weight change. Eyes: Negative for visual disturbance. Respiratory: Negative for cough, shortness of breath and wheezing. Cardiovascular: Negative for chest pain, palpitations and leg swelling. Neurological: Negative for numbness. Endocrine: Negative for polydipsia, polyphagia and polyuria. OBJECTIVE: 05/16/2024 2:01 PM 11/12/2023 1:49 PM 05/14/2023 9:19 AM Vitals BMI 36.07 kg/m2 35.02 kg/m2 37.19 kg/m2 Systolic 122 114 138 Diastolic 64 72 80 Heart Rate 79 74 59 Temp 97.7 F 97.9 F 96.4 F Height (in) 5' 8.25 5' 8.25 5' 8.25 Weight (lb) 239 232 246.4 Visit Report Report Report Report Physical Exam Constitutional: General: He is not in acute distress. Appearance: Normal appearance. Cardiovascular: Rate and Rhythm: Normal rate and regular rhythm. Heart sounds: No murmur heard. No friction rub. No gallop. Pulmonary: Breath sounds: Normal breath sounds. No wheezing, rhonchi or rales. Musculoskeletal: General: No swelling. Neurological: Mental Status: He is alert. ASSESSMENT AND PLAN: Problem List Items Addressed This Visit Type 2 diabetes mellitus with stage 3a chronic kidney disease, with long-term current use of insulin (HCC) ([facility]) Relevant Orders POCT glycosylated hemoglobin (Hb A1C) docked device (Completed) Class 2 severe obesity due to excess calories with serious comorbidity and body mass index (BMI) of 36.0 to 36.9 in adult ([facility]) - Primary Type 2 diabetes mellitus with other circulatory complications ([facility]) During the appointment today all pertinent labs, imaging, health maintenance, and glucose readings were reviewed. Encouraged to check blood glucose throughout the day with some fasting and some PP readings. They are to bring their glucose meter/cgm in to all appointments. All of the patients questions, treatment options, and current care plan and goals were discussed. A copy of this along with pertinent instructions were given to the patient at the end of the appointment. The patient voices understanding of all of this and is to call in between appointments if they have any problems or questions. Yajaira Barroso is struggling to gain control of their diabetes. I am very concerned for diabetes related complications. , The patient is wearing their cgm on a daily basis and making decisions in regards to adjusting insulin daily as well for at least the last 60 days , Discussed dietary changes at length. Encouraged to limit simple carbs and focus more on healthy protein/fat with all meals and snacks. They should also avoid any sugary drinks. , Instructions given today include: Insulin instructions and Dietary education. He needs to work better on his diet to improve control. Recommend limiting eating out and discussed easy options that he doesn't have to do a lot of cooking. Follow up in about 4 months (around 09/13/2024) for Recheck. Patient's Medications New Prescriptions No medications on file Previous Medications APIXABAN (ELIQUIS) 5 MG TABLET Take 5 mg by mouth in the morning and 5 mg in the evening. ASPIRIN 81 MG EC TABLET Take 1 tablet by mouth in the morning. FINASTERIDE (PROSCAR) 5 MG TABLET Take 5 mg by mouth in the morning. FUROSEMIDE (LASIX) 40 MG TABLET Take 40 mg by mouth in the morning. INSULIN GLARGINE (LANTUS SOLOSTAR) 100 UNIT/ML PEN Inject 24 Units under the skin Daily INSULIN PEN NEEDLE (BD PEN NEEDLE ALVARADO U/F) 32G X 4 MM MISC Inject 1 each under the skin in the morning and 1 each at noon and 1 each in the evening and 1 each before bedtime. LUBIPROSTONE (AMITIZA) 24 MCG CAPSULE Take 1 capsule twice a day by oral route. ROSUVASTATIN (CRESTOR) 40 MG TABLET Take 40 mg by mouth in the morning. SOTALOL (BETAPACE) 80 MG TABLET Take 1 tablet by mouth in the morning and 1 tablet before bedtime. TAMSULOSIN (FLOMAX) 0.4 MG 24 HR CAPSULE Take 1 capsule (0.4 mg) by mouth in the morning. Modified Medications No medications on file Discontinued Medications No medications on file I have reviewed and reconciled the history and medication list with the patient today. documented in this encounter [facility] 11-26-2023 History of Present illness Narrative Images from the original note were not included. To: JULIO PATTON DO HPI: Yajaira Barroso is a 83 y.o. male with Lower extremity swelling and pain. He had PVR that shows mild occlusive disease bilaterally..No tissue loss or rest pain. He continues to have swelling. Discussed with him compression stockings. Review of Systems: Review of Systems Constitutional: Negative. HENT: Negative. Respiratory: Negative. Cardiovascular: Negative. Gastrointestinal: Negative. Endocrine: Negative. Genitourinary: Negative. Musculoskeletal: Negative. Skin: Negative. Neurological: Negative. Hematological: Negative. Medications: Current Outpatient Medications on File Prior to Visit Medication Sig Dispense Refill aspirin 81 mg Take 1 tablet (81 mg total) by mouth in the morning. DOXAZOSIN MESYLATE, BULK, MISC 4 mg by miscellaneous route 2 (two) times a day. ELIQUIS 5 mg tablet Take 1 tablet (5 mg total) by mouth in the morning and 1 tablet (5 mg total) before bedtime. finasteride (PROSCAR) 5 mg tablet Take 1 tablet (5 mg total) by mouth in the morning. furosemide (LASIX) 40 mg tablet Take 1 tablet (40 mg total) by mouth daily. gabapentin (NEURONTIN) 300 mg capsule Take 1 capsule (300 mg total) by mouth in the morning. hydrALAZINE (APRESOLINE) 50 mg tablet insulin aspart, niacinamide, (FIASP FLEXTOUCH U-100 INSULIN) 100 unit/mL (3 mL) insulin pen Inject under the skin. Sliding Scale LANTUS SOLOSTAR U-100 INSULIN 100 unit/mL (3 mL) insulin pen INJECT 24 UNITS SUBCUTANEOUSLY ONCE DAILY lisinopriL (PRINIVIL,ZESTRIL) 10 mg tablet polyethylene glycol (GLYCOLAX) 17 gram packet Take 17 g by mouth in the morning. polyethylene glycol (GLYCOLAX) 17 gram/dose powder Take 17 g by mouth in the morning. rosuvastatin (CRESTOR) 40 mg tablet Take 1 tablet (40 mg total) by mouth in the morning. sotaloL (BETAPACE) 80 mg tablet Take 1 tablet (80 mg total) by mouth in the morning. tamsulosin (FLOMAX) 0.4 mg capsule Take 1 capsule (0.4 mg total) by mouth in the morning and 1 capsule (0.4 mg total) before bedtime. No current facility-administered medications on file prior to visit. Past Medical History: Past Medical History: Diagnosis Date A-fib ([facility]) Diabetes mellitus with diabetic polyneuropathy, without long-term current use of insulin ([facility]) Ingrown nail Paronychia of toenail, left PVD (peripheral vascular disease) ([facility]) Stroke ([facility]) Past Surgical History: No past surgical history on file. Social and Family History: Social History Socioeconomic History Marital status: Unknown Spouse name: Not on file Number of children: Not on file Years of education: Not on file Highest education level: Not on file Occupational History Not on file Tobacco Use Smoking status: Unknown Smokeless tobacco: Not on file Vaping Use Vaping status: Never Used Substance and Sexual Activity Alcohol use: Defer Drug use: Never Sexual activity: Defer Other Topics Concern Not on file Social History Narrative Not on file Social Determinants of Health Financial Resource Strain: Not on file Food Insecurity: No Food Insecurity (11/26/2023) Hunger Screening Food Insecurity - Worry: Never True Food Insecurity - Inability: Never True Transportation Needs: Not on file Physical Activity: Not on file Stress: Not on file Social Connections: Not on file Interpersonal Safety: Unknown (08/20/2023) Received from [facility] [place] Safety & Environment Fear of Current or Ex-Partner: Not on file Emotionally Abused: Not on file Physically Abused: Not on file Sexually Abused: Not on file Physically or Sexually Abused: Not on file Housing Instability: Not on file History reviewed. No pertinent family history. Recent Labs: Recent and relative labs were reviewed and interpreted and contributed to the assessment and plan below. Vitals: BP 143/90 (BP Site: Left Arm, BP Postition: Sitting, BP CUFF SIZE: M (9-13 inches)) Pulse 76 Wt 103.7 kg (228 lb 9.6 oz) SpO2 98% BMI 33.76 kg/m Body mass index is 33.76 kg/m . Physical Exam: Physical Exam Constitutional: Appearance: Normal appearance. HENT: Head: Normocephalic and atraumatic. Mouth/Throat: Mouth: Mucous membranes are moist. Eyes: Extraocular Movements: Extraocular movements intact. Pupils: Pupils are equal, round, and reactive to light. Cardiovascular: Rate and Rhythm: Normal rate and regular rhythm. Pulmonary: Effort: Pulmonary effort is normal. Breath sounds: Normal breath sounds. Abdominal: General: Abdomen is flat. Bowel sounds are normal. Palpations: Abdomen is soft. Musculoskeletal: General: Normal range of motion. Cervical back: Normal range of motion. Skin: General: Skin is warm and dry. Neurological: General: No focal deficit present. Mental Status: He is alert and oriented to person, place, and time. Mental status is at baseline. Psychiatric: Mood and Affect: Mood normal. Behavior: Behavior normal. Thought Content: Thought content normal. Judgment: Judgment normal. Recent testing: PVR Assessment and Plan: Problem List Swelling of both lower extremities - Primary Yajaira was seen today for claudication and peripheral arterial disease. Diagnoses and all orders for this visit: Swelling of both lower extremities Oliver Fitzgerald MD, JANINE, RPVI, FSVS, FACS [facility] [employer] [facility] This note was created with the assistance of a speech recognition program. While intending to generate a timely document that accurately reflects the content of the visit, no guarantee can be provided that every grammatical or spelling mistake has been or will be identified or corrected. Thank you for your understanding. documented in this encounter [facility] [employer] [facility] 10-22-2023 Note Patient here for 6 m [...] All other systems reviewed and are negative. [facility] 10-22-2023 Note Cardiovascular Medic [facility] SUBJECTIVE Chief Complaint Patient presents with Atrial Fibrillation Congestive Heart Failure Coronary Artery Disease Hypertension Yajaira Barroso is a 83 y.o. male here for follow-up. HPI Reason for visit: follow up , s/p atrial lead dislodgment with extraction of old lead and reimplantation of new lead 07/08/2022 , s/p DCCV at [facility] for afib 11/202210/22/23 He denies any changes [...] in the atrial channel. he does have wrangell conduction and management of the device he had significant sinus node dysfunction with sinus bradycardia in the 40s with wrangell QRS. however he does have AV Wenckebach [...] 59% of the time in the RA. ------- 10/14/22 HPI: Patient here for follow-up s/p RA lead extraction and reimplantation of new lead on 07/08/2019. Device check 10/14/2022 reveals normal function and thresholds are revealed he is in persistent A-fib. He was placed on sSotalol 80mg bid and is now paced at 60bpm. Patient has shortness of breath, REDDY, orthopnea. Fatigue+ Prior HPI: Yajaira Barroso is a 82 y.o. year old with past medical history of Afib was admitted to [facility] and was noted to have bradycardia. initial plans for cardioversion was aborted and he underwent a dual-chamber Biotronik pacemaker implant by Dr. Armenta on 05/06/22. subsequently he was advised to have a cardioversion done as an outpatient. today presented to [facility] for cardioversion and at that time I performed a device check which revealed that he had underlying ventricular pacing, but his atrial lead was sensing ventricular signals. a subsequent chest x-ray revealed that the atrial lead was displaced. the plan was made to revise the atrial lead. Patient Active Problem List Diagnosis Coronary artery disease involving wrangell coronary artery of wrangell heart without angina pectoris Paroxysmal atrial fibrillation ([facility]) Status post percutaneous transluminal coronary angioplasty Essential hypertension Symptomatic bradycardia AICD lead displacement Acute on chronic heart failure with preserved ejection fraction ([facility]) Arthritis Myocardial infarction ([facility]) Neuropathy Benign prostatic hyperplasia with lower urinary tract symptoms Change in bowel habits Chronic kidney disease Chronic venous insufficiency Elevated cholesterol terminal carman (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 insulin ([facility]) Severe claudication ([facility]) Severe obesity with body mass index (BMI) of 35.0 to 35.9 and comorbidity ([facility]) Stage 3a chronic kidney disease ([facility]) Swelling of both lower extremities Type 2 diabetes mellitus with hyperglycemia ([facility]) Type 2 diabetes mellitus with stage 3a chronic kidney disease, with long-term current use of insulin ([facility]) Weight loss Past Medical History: Diagnosis Date Atrial fibrillation ([facility]) Coronary artery disease Diabetes mellitus ([facility]) Hypertension No family history on file. Social [...] in the morni (more content not included)... [facility] 10-22-2023 Evaluation + Plan note Associated Problem(s): Swelling of both lower extremities We will prescribe compression stockings after making sure he does not have severe arterial occlusive disease. [facility] 10-22-2023 Miscellaneous Notes Associated Problem(s): Swelling of both lower extremities We will prescribe compression stockings after making sure he does not have severe arterial occlusive disease. Associated Problem(s): Severe claudication (CMS-HCC) We will get a PVR and follow-up after the PVR. documented in this encounter [facility] 10-22-2023 Evaluation + Plan note Associated Problem(s): Severe claudication (CMS-HCC) We will get a PVR and follow-up after the PVR. [facility] 10-22-2023 History of Present illness Narrative Images from the original note were not included. To: JULIO PATTON, DO HPI: Yajaira Barroso is a 83 y.o. male with Severe claudication bilateral lower extremity swelling. He does not use compression stockings.. He does not have any recent testing. Review of Systems: Review of Systems Constitutional: Negative. HENT: Negative. Respiratory: Negative. Cardiovascular: Negative. Gastrointestinal: Negative. Endocrine: Negative. Genitourinary: Negative. Musculoskeletal: Negative. Skin: Negative. Neurological: Negative. Hematological: Negative. Medications: Current Outpatient Medications on File Prior to Visit Medication Sig Dispense Refill aspirin 81 mg Take 1 tablet (81 mg total) by mouth in the morning. DOXAZOSIN MESYLATE, BULK, MISC 4 mg by miscellaneous route 2 (two) times a day. ELIQUIS 5 mg tablet Take 1 tablet (5 mg total) by mouth in the morning and 1 tablet (5 mg total) before bedtime. finasteride (PROSCAR) 5 mg tablet Take 1 tablet (5 mg total) by mouth in the morning. furosemide (LASIX) 40 mg tablet Take 1 tablet (40 mg total) by mouth daily. LANTUS SOLOSTAR U-100 INSULIN 100 unit/mL (3 mL) insulin pen INJECT 24 UNITS SUBCUTANEOUSLY ONCE DAILY polyethylene glycol (GLYCOLAX) 17 gram packet Take 17 g by mouth in the morning. rosuvastatin (CRESTOR) 40 mg tablet Take 1 tablet (40 mg total) by mouth in the morning. sotaloL (BETAPACE) 80 mg tablet Take 1 tablet (80 mg total) by mouth in the morning. tamsulosin (FLOMAX) 0.4 mg capsule Take 1 capsule (0.4 mg total) by mouth in the morning and 1 capsule (0.4 mg total) before bedtime. gabapentin (NEURONTIN) 300 mg capsule Take 1 capsule (300 mg total) by mouth in the morning. (Patient not taking: Reported on 04/09/2023) hydrALAZINE (APRESOLINE) 50 mg tablet TAKE ONE TABLET BY MOUTH TWICE A DAY ( IN THE MORNING AND AT BEDTIME ) (Patient not taking: Reported on 04/09/2023) lisinopriL (PRINIVIL,ZESTRIL) 10 mg tablet TAKE ONE TABLET BY MOUTH ONCE DAILY 30 (Patient not taking: Reported on 04/09/2023) polyethylene glycol (GLYCOLAX) 17 gram/dose powder Take 17 g by mouth in the morning. (Patient not taking: Reported on 10/22/2023) No current facility-administered medications on file prior to visit. Past Medical History: Past Medical History: Diagnosis Date A-fib ([facility]) Diabetes mellitus with diabetic polyneuropathy, without long-term current use of insulin ([facility]) Ingrown nail Paronychia of toenail, left PVD (peripheral vascular disease) ([facility]) Stroke ([facility]) Past Surgical History: No past surgical history on file. Social and Family History: Social History Socioeconomic History Marital status: Unknown Spouse name: Not on file Number of children: Not on file Years of education: Not on file Highest education level: Not on file Occupational History Not on file Tobacco Use Smoking status: Unknown Smokeless tobacco: Not on file Vaping Use Vaping status: Never Used Substance and Sexual Activity Alcohol use: Defer Drug use: Never Sexual activity: Defer Other Topics Concern Not on file Social History Narrative Not on file Social Determinants of Health Financial Resource Strain: Not on file Food Insecurity: No Food Insecurity (04/09/2023) Hunger Screening Food Insecurity - Worry: Never True Food Insecurity - Inability: Never True Transportation Needs: Not on file Physical Activity: Not on file Stress: Not on file Social Connections: Not on file Interpersonal Safety: Unknown (08/20/2023) [facility] from [facility] Safety & Environment Fear of Current or Ex-Partner: Not on file Emotionally Abused: Not on file Physically Abused: Not on file Sexually Abused: Not on file Physically or Sexually Abused: Not on file Housing Instability: Not on file History reviewed. No pertinent family history. Recent Labs: Recent and relative labs were reviewed and interpreted and contributed to the assessment and plan below. Vitals: BP 143/88 (BP Site: Left Arm, BP Postition: Sitting, BP CUFF SIZE: L (13-17 inches)) Pulse 79 Ht 175.3 cm (5' 9 ) Wt 106.6 kg (235 lb) BMI 34.70 kg/m Body mass index is 34.7 kg/m . Physical Exam: Physical Exam Constitutional: Appearance: Normal appearance. HENT: Head: Normocephalic and atraumatic. Mouth/Throat: Mouth: Mucous membranes are moist. Eyes: Extraocular Movements: Extraocular movements intact. Pupils: Pupils are equal, round, and reactive to light. Cardiovascular: Rate and Rhythm: Normal rate and regular rhythm. Pulmonary: Effort: Pulmonary effort is normal. Breath sounds: Normal breath sounds. Abdominal: General: Abdomen is flat. Bowel sounds are normal. Palpations: Abdomen is soft. Musculoskeletal: General: Normal range of motion. Cervical back: Normal range of motion. Skin: General: Skin is warm and dry. Neurological: General: No focal deficit present. Mental Status: He is alert and oriented to person, place, and time. Mental status is at baseline. Psychiatric: Mood and Affect: Mood normal. Behavior: Behavior normal. Thought Content: Thought content normal. Judgment: Judgment normal. Recent testing: Assessment and Plan: Problem List Severe claudication (CMS-HCC) - Primary Current Assessment & Plan We will get a PVR and follow-up after the PVR. Swelling of both lower extremities Current Assessment & Plan We will prescribe compression stockings after making sure he does not have severe arterial occlusive disease. Yajaira was seen today for pad. Diagnoses and all orders for this visit: Severe claudication (CMS-HCC) Swelling of both lower extremities Oliver Fitzgerald MD, JANINE, RPVI, FSVS, FACS [facility] This note was created with the assistance of a speech recognition program. While intending to generate a timely document that accurately reflects the content of the visit, no guarantee can be provided that every grammatical or spelling mistake has been or will be identified or corrected. Thank you for your understanding. documented in this encounter [facility] [employer] 03-26-2023 Evaluation note Encounter Date Diagnosis Assessment Notes Feb, Stage 3a chronic kidney disease (ICD-10 - N18.31) [employer] Other 09-27-2023 Evaluation note* Encounter Date Diagnosis [...] (prostate specific antigen) (ICD-10 - Z12.5) Feb, terminal carman (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 insulin (ICD-10 - Z79.4) Feb, High risk medication use (ICD-10 - Z79.899) Dec, Paroxysmal atrial fibrillation (ICD-10 - I48.0) Paroxysmal atrial fibrillation This patient is in NSR or rate controlled. This patient is anticoagulated to prevent thromboembolic events. 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 [employer] Other 03-24-2023 Evaluation note* Encounter Date Diagnosis Assessment Notes Treatment Notes Treatment Clinical Notes Aug, Dysuria (ICD-10 - R30.0) [employer] Other 06-06-2022 NotePROCEDURE: XR HIP LT 2 3V W PELVIS COMPARISON: None. HISTORY: Pain of left hip joint FINDINGS: BONES:No acute fracture or dislocation. Minimal bilateral hip osteoarthropathy. SOFT TISSUES:Negative. No visible soft tissue swelling. EFFUSION:None visible. OTHER: Electronic device projects over the right hemipelvis IMPRESSION: No acute abnormality Electronically authenticated by: NICOLE THOMAS Date: 2021-12-02 20:59[id number] History general Narrative - Reported* Type Description Date Surgical History Problem Title : Othe r Surgery, Problem Comment : [facility] PTCA/stent RCA 2002 [facility] PTCA/PABLITO RCA 2014[facility] 11/2017Colonoscopy 01/2018, Problem Status : Resolved, Surgical History Problem Title : past surgical history reviewed, Problem Description : past surgical history reviewed, Problem Comment : reviewed - no changes required, Problem Status : Resolved, Surgical History Problem Title : surg ical procedures, hx of, Problem Description : surgical procedures, hx of, Problem Comment : [facility] PTCA/stent RCA 2002 [facility] PTCA/PABLITO RCA 2014 [facility] 11/2017 Colonoscopy 01/2018, Problem Status : Active, Surgical History Problem Title : surg ical procedures, hx of, Problem Description : surgical procedures, hx of, Problem Comment : [facility] PTCA/stent RCA 2002 [facility] PTCA/PABLITO RCA 2014 [facility] 11/2017, Problem Status : Resolved, Surgical History Problem Title : surg ical procedures, hx of, Problem Description : surgical procedures, hx of, Problem Comment : [facility] PTCA/stent RCA 2002 [facility] PTCA/PABLITO RCA 2014, Problem Status : Resolved, Surgical History Problem Title : surg ical procedures, hx of, Problem Description : surgical procedures, hx of, Problem Comment : [facility] PTCA/stent RCA 2002, Problem Status : Resolved, [employer] Other Evaluation noteNo InformationNortBrad[facility] [employer] Other Evaluation note* Diagnosis Onset Date Resolution Status ASHD (arteriosclerotic heart disease) acute Benign prostatic hyperplasia with lower urinary tract symptoms acute Chronic kidney disease acute Elevated cholesterol acute Hypertension acute Paroxysmal atrial fibrillation acute [facility] Work Phone: Evaluation note* Diagnosis Onset Date Resolution Status ASHD (arteriosclerotic heart disease) acute Benign prostatic hyperplasia with lower urinary tract symptoms acute Chronic venous insufficiency of lower extremity acute Elevated cholesterol acute Medicare annual wellness visit, subsequent acute Obesity acute Paroxysmal atrial fibrillation acute Primary hypertension acute Stage 3a chronic kidney disease acute Type 2 diabetes mellitus with hyperglycemia acute [facility] Work Phone: Evaluation note* Diagnosis Benign prostatic hyperplasia with urinary frequency- Primary Type 2 diabetes mellitus with stage 3a chronic kidney disease, with long-term current use of insulin (HCC) (CMS/HCC) Severe obesity with body mass index (BMI) of 35.0 to 35.9 and comorbidity (CMS/HCC) Type 2 diabetes mellitus with other circulatory complications (CMS/HCC)- Primary Type 2 diabetes mellitus with stage 3a chronic kidney disease, with long-term current use of insulin (HCC) (CMS/HCC) Severe obesity with body mass index (BMI) of 35.0 to 35.9 and comorbidity (CMS/HCC) Class 2 severe obesity due to excess calories with serious comorbidity and body mass index (BMI) of 36.0 to 36.9 in adult (CMS/HCC)- Primary Type 2 diabetes mellitus with other circulatory complications (CMS/HCC) Type 2 diabetes mellitus with stage 3a chronic kidney disease, with long-term current use of insulin (HCC) ([facility]) documented in this encounter [facility] HealthcareEvaluation note* Diagnosis Severe claudication (CMS-HCC)- Primary Swelling of both lower extremities documented in this encounter [facility] System[facility]* Diagnosis Swelling of both lower extremities- Primary documented in this encounter [facility] SystemEvaluation note* Diagnosis Onset Date Resolution Status Admit Date ASHD (arteriosclerotic heart disease) acute August 29, 2024 11:18am Benign prostatic hyperplasia with lower urinary tract symptoms acute August 29, 2024 11:18am Chronic venous insufficiency of lower extremity acute August 29, 2024 11:18am Elevated cholesterol acute Kishore h 2024 11:18am Paroxysmal atrial fibrillation acute August 29, 2024 11:18am Primary hypertension acute [facility] 2024 11:18am Stage 3a chronic kidney disease acut e August 29, 2024 11:18am Type 2 diabetes mellitus wit h hyperglycemia acute August 29, 2024 11:18am Obesity deleted August 29 11:18am [facility] Work Phone: History general Narrative - [...] Medical History Chronic venous insufficiency Surgical History [facility] PTCA/STENT RCA 2003 Surgical History [facility] PTCA/PABLITO RCA 2015 Surgical History LHC 2018 Surgical History COLONOSCOPY 2018 Hospitalization History SEE SURGICAL HX [employer] Other Hisqqda general Narrative - Reported* Type Description Date [...] venous insufficiency Medical History CKD Surgical History [facility] PTCA/STENT RCA 2003 Surgical History [facility] PTCA/PABLITO RCA 2014 Surgical History LHC 2018 Surgical History COLONOSCOPY 2018 Hospitalization History SEE SURGICAL [employer] Other InstructionsNot on filedocumented in this encounter [employer] SystemInstructionsNot on filedocumented in this encounter [employer] Summary Purpose Family History No Family History Records FoundNo Family History Records FoundNo Family History Records FoundNo Family History Records Found Advance Directives Advance Directive Response Recorded Date/ Time Advance Directives No February 16, 2018 4:29pm Advance Directive Response Recorded Date/ Time Advance Directives No February 16, 2018 3:29pm Hospital Course Note MR[id number] [facility] Yajaira Barroso Admitted: 12/22/2017 Discharged: 12/23/2017 Date of : 1940 Physician: Jose Hsieh MD DISCHARGE SUMMARYPRIMARY CARE PHYSICIAN: Dr. Francesca Mishra.CONSULTING PHYSICIAN: [facility].FINAL DIAGNOSES:1. Unstable angina status post cardiac cath.2. New-onset atrial fibrillation, status post cardioversion, sinus rhythm now.SECONDARY DIAGNOSES:1. Essential hypertension.2. Coronary artery disease.3. Unspecified dyslipidemia.HOSPITAL COURSE: This is a pleasant 77-year-old gentleman [facility], also found to have a new-onset atrialfibrillation. The patient was admitted, seen by Cardiology inconsultation, underwent cardiac catheterization, which revealed a patentright coronary artery stent with minimal coronary artery disease on theanterior descending artery, so the patient was started on medicalmanagement and also underwent cardioversion, which the patient toleratedvery well (more content not included)... Note MR#: [id number] [facility] Name: Yajaira Barroso Admitted: 06/04/2018 Discharged: 06/06/2018 Date of : 1940 Physician: Tonia Mistry MD DISCHARGE SUMMARYDISCHARGE ATTENDING PHYSICIAN: MEAGAN ColemanO[facility]ENT[facility]uth CARE PHYSICIAN: CHACHO Payan PROBLEMS:1. Atrial fibrillation.2. Coronary artery disease.3. History of myocardial infarction.4. Essential hypertension.5. Hyperlipidemia.6. Bradycardia.CONSULTANTS: Cardiology.PROCEDURES PERFORMED: During admission: ROSITA.HOSPITAL COURSE: This is a 77-year-old male with a past medical history asabove, who presented as a direct admission from the Cardiology clinic toinitiate sotalol therapy. The patient underwent elective cardioversion onJune 04, and the patient maintained in normal sinus [...] disease Type 2 diabetes mellitus with hyperglycemia Chief Complaint Admit Date 6 month f/u August 29, 2024 11:1 8am Reason for Visit Admit Date ASHD (arteriosclerotic heart disease) [facility] 2024 11:18am Benign prostatic hyperplasia with lower urinary tract symptoms August 29, 2024 11:18am Chronic venous insufficiency of lower ex tremity August 29, 2024 11:18am Elevated cholesterol August 29, 2024 11: 18am Paroxysmal atrial fibrillation August 11:18am Primary hypertension August 29, 2024 11: 18am Stage 3a chronic kidney disease August 11:18am Type 2 diabetes mellitus with hyperglyce dhaval August 29, 2024 11:18am Obesity August 29, 2024 11:1 8am Reason for Referral Specialty Diagnoses / Procedures Referred By Contac t Referred To Contact Diagnoses Severe claudication ([facility]) Procedures Vas art doppler lwr bilat mult lev/PVR Oliver Fitzgerald MD [address], [place] [address] Referral ID Status Reason Start Date Expiration Date V isits Requested Visits Authorized [id number] Pending Review 10/22/2023 10/21/2024 1 1 Additional Source Comments (unrecognized sect ion and content) No Status Records FoundNo Status Records FoundNo Status Records FoundNo Status Records Found INFORMATION SOURCE (unrecogn ized section and content) DATE CREATED AUTHOR 06/16/2018 [facility] DATE CREATED AUTHOR AUTHOR'S ORGANIZ ATION 10/31/2022 [facility] DATE CREATED AUTHOR AUTHOR'S ORGANIZ ATION 05/18/2024 [facility] DATE CREATED AUTHOR AUTHOR'S ORGANIZ ATION 07/01/2024 [facility] REASON FOR VISIT (unrecogniz ed section and content) Reason Comments Diabetes Reason Comments PAD Reason Comments Claudication Peripheral Arterial Disease BLE noted ed robert neuropathy symptoms Care Teams (unrecognized sec tion and content) [...] March 28, 2024 End: March 28, 2024 [employer]Fire[employer] Relationship Specialty Start Date End Date Korin Mercedes DO [address] [place] [address] PCP - [employer] 04/29/22 Julio Patton MD [address] [place] [address] PCP - General Internal Medicine 05/08/23 [employer]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 [employer] provides no warranty or guarantee of the accuracy or completeness of information in this document.
[2024-08-30 13:07] LABS: Anion Gap 8.9; BUN Creatinine Ratio 17.9; Calcium 9.3 mg/dL (8.5-10.1); Carbon Dioxide 32.1 mmol/L (21.0-32.0); Chloride 103 mmol/L (98-107); Estimated GFR (African America 47 (>=60 mL/min/1.73m^2); Estimated GFR (Non-African Ame 39 (>=60 mL/min/1.73m^2); Glucose 187 mg/dL (74-106); Sodium 139 mmol/L (136-145)
[2024-08-30 13:08] LABS: Creatinine Urine Random 40.37 mg/dL (20.00-300.00); Microalbum Creatinine Ratio Ur 32.2 mg/g (0.0-29.9); Microalbumin Urine Random 1.3 mg/dL (<=30.0)
== END 2024-08-30 12:04 | disposition home or self-care (01) ==
LOC: LAB 12:04
PROVIDERS: PCP Internal Medicine; Visit Provider Internal Medicine
DX: E11.65 Type 2 diabetes mellitus with hyperglycemia (principal); Z79.4 Long term (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 insulin; N18.31 Chronic kidney disease, stage 3a
CPT/HCPCS: 36415; 80048; 82043; 82570

== ENCOUNTER 2024-09-12 08:40 | Outpatient (OUT) | payer MEDICARE, SELFPAY ==
--- NOTE | 2024-09-12 08:43 | US_ITS ---
[address] [address] Patient Name: YAJAIRA VEGA MRN: [id number] date: 1940 Sex: M Assigned Patient Location: [place] Current Patient Location: [place] Accession/Order Number: [id number] Exam Date: 09/12/2024 10:09 Report Date: 09/12/2024 10:10 At the request of: PABLO WHITESIDE DO Procedure: US renal BI BILATERAL RENAL AND BLADDER ULTRASOUND CLINICAL HISTORY: Chronic Kidney Disease COMPARISON: None FINDINGS: Estimation of renal size is approximately 0.2 cm on the right and 10.9 cm on the left. No contour deforming mass, shadowing stone or hydronephrosis. Cystic changes left kidney. The urinary bladder is partially distended with a volume of 196 ml. No shadowing stone or focal lesion. US/US renal BI IMPRESSION: No acute findings. Impression dictated by: John Roe Jr., D.O.09/12/2024 10:10 AM Dictation Location: [place] [address] Electronically authenticated by: [id number] Y Date: 09/12/2024 10:10
--- OUTSIDE RECORDS SUMMARY | 2024-09-12 08:58 | XMS_ITS | CCD ---
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 Name Role Phone JULIO PATTON Unavailable Unavailable BALL, JULIO Unavailable Unavailable AHMED, TONIA Unavailable Unavailable AHMED, TONIA Unavailable Unavailable MD Unavailable Unavailable GUNNAR WALLACE Unavailable Unavailable TAMI SQUIRES AM Unavailable Unavailable BALL, JULIO Unavailable Unavailable RHONA, DORIS Unavailable Unavailable COLLINS, JOSE Unavailable Unavailable MD Unavailable Unavailable ELTAHAWY, EHAB A Unavailable Unavailable MD Unavailable Unavailable Dipesh, Deni Unavailable Unavailable Stevo, [...] BRASHER Admitting Unavailable PetznKorin delacruz DO Unavailable [phone] Julio Patton MD Primary Care Provider KORIN MERCEDES Attending Unavailable KORIN MERCEDES Attending Unavailable JULIO PATTON Referring Unavailable MICK ROA Attending Unavailable PRATIMA, CHRIS Referring Unavailable PRATIMA, CHRIS Referring Unavailable PRATIMA, CHRIS Attending Unavailable Julio Patton DO Primary Care Provider Allergies Allergy Classification Reported Allergen(s) Allergy Type Date of Onset Reaction(s) Facility (2 sources) Bee/Wasp/Ant venom; Translations: [Bee/Wasp Stings] Propensity to adverse reactions (disorder) 8 AOF [facility] Repository (1 source) bee venom Drug allergy (disorder) [facility] Repository (9 sources) bald-faced hornet venom protein / common wasp venom protein / eastern yellow jacket venom protein / Dominican wasp venom protein / southern yellow jacket venom protein / western yellow jacket venom protein / yellow hornet venom protein Drug Allergy Mixed Vespid Venom Protein [facility] Other (1 source) patient allergy list reviewed by nurse or physicia Propensity to adverse reactions 5 Comment:Done [facility] Other (1 source) Allergies Reconciled Propensity to adverse reactions Unknown [facility] Other (3 sources) Bee/Wasp/Ant venom Allergy to substance 8 swelling at site [facility] (6 sources) MIXED VESPID VENOM PROTEIN; Translations: [MIXED VESPID VENOM PROTEIN] Drug Allergy 0 Anaphylaxis [facility] (2 sources) Honey bee venom Propensity to adverse reactions 8 Swelling [facility] (2 sources) Bee Venom Protein (Honey [...] 16, 2024 8:33pm take 5 tablets by [facility] every twenty-four hours Furosemide 40 MG 5 [...] with long-term current use of insulin (HCC) ([facility]/HCC) Inject 24 Units under the skin Daily [...] by oral route. 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; Translations: [DYE CAN OPERATOR (CURRENT) USE OF ASPIRIN] Onset: 06-04-2018 Episodic Other aftercare (1 source) Long-term current use of drug therapy; Translations: [Other fci (current) drug therapy] Episodic Other aftercare (1 source) Long-term current use of anticoagulant; Translations: [pharmacy technician assistant (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 anticoagulants] Episodic Other aftercare (11 sources) Long-term current use of insulin; Translations: [care home (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 insulin] 09-22-2023 Episodic Other aftercare (1 source) 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 Episodic Other aftercare (1 source) Other pipeman (current) drug therapy Episodic Other and ill-defined [...] (BMI) of 36.0 to 36.9 in adult ([facility])] Onset: 05-14-2023 05-16-2024 Chronic Other nutritional; endocrine; [...] Onset: 04-23-2015 Episodic Other aftercare (2 sources) care home (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 anticoagulants; Translations: [DYE CAN OPERATOR (CURRENT) USE OF ANTICOAGULANTS] Onset: 06-04-2018 Episodic Other aftercare (1 source) pharmacy technician assistant (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 antithrombotics/anti platelets; Translations: [DYE CAN OPERATOR (CURRENT) USE OF ANTITHROMBOTICS/ANTI PLATELETS] Onset: 12-22-2017 [...] Range Facility Office Visiton 06-07-2024 Follow-up visit [id number] Kalyn Barroso 1940 M Date Provider Department Center 06/07/2024 CHRIS JAFFE [facility] No family history on file Level of Service:37744 MD OFFICE/OUTPATIENT ESTABLISHED LOW MDM 20 MIN Normal [facility] HbA1c (Bld) [Mass fraction]o n 05-16-2024 Interpretation and review of laboratory results Abnormal [facility] Laboratory - Hematology and Cell countson 05-16-2024 HbA1c (Bld) [Mass fraction] 8.8 % [facility] Office Visiton 10-22-2023 Follow-up visit [id number] Kalyn Barroso 1940 M Date Provider Department Center 10/22/2023 IMCK MELLO JUAN [facility] No family history on file Level of Service:88183 MD OFFICE/OUTPATIENT ESTABLISHED MOD MDM 30 MIN Reason for Visit and Comments: Atrial Fibrillation [80] Congestive Heart Failure [127] Coronary Artery Disease [187] Hypertension [870803] Normal [facility] ECHOCARDIO M/2D COMPLETEon 0 10-24-2022 ECHOCARDIO M/2D COMPLETE Patient: YAJAIRA BARROSO Exam Date: 10/24/2022 : 1940 Gender:M Ordering : CHRIS ANDUJAR Admission #: [id number] Family : DR JULIO PATTON D.O. Order #: [id number] CLICK HERE TO VIEW EXAM ECHOCARDIOGRAM REPORT [...] M.D. on 10/24/2022 at 16:29 Normal [facility] Urinalysis - DIPSTICKon - Appearance (U) cloudy [facility] Other Bilirubin Ql (U) small [facility] Other Color (U) brown [facility] Other Glucose Ql (U) + [employer] Other Hemoglobin Ql (U) Negative [facility] Other Ketones Ql (U) trace [employer] Other Leukocyte esterase Test strip Ql (U) moderate [facility] Other Nitrite Ql (U) Positive [employer] Other pH (U) 6.5 [pH] [facility] Other Protein Ql (U) ++++ [employer] Other Specific gravity (U) [Rel density] 1.000 [facility] Other Urobilinogen (U) [Mass/Vol] 0.2 mg/dL [facility] Other Urinalysis - DIPSTICK [facility] Other PROF CHEM 8 (BAS METB)on Anion gap [Moles/Vol] 7.6 mmol/L Normal [facility] Comment on above: Performed By: #### BMP #### [facility] [address] [place] [address] Dr. Shruti Roper Calcium [Mass/Vol] 8.6 mg/dL Normal 8.5-10.1 [facility] Comment on above: Performed By: #### BMP #### [facility] [address] [address] [address] Shruti Roper Chloride [Moles/Vol] 105 mmol/L Normal 98-107 [facility] Comment on above: Performed By: #### BMP #### [facility] [address] [address] [address] Shruti Roper CO2 [Moles/Vol] 30.7 mmol/L Normal 21.0-32.0 [facility] Comment on above: Performed By: #### BMP #### [facility] [address] [address] [address] Shruti Roper Creatinine [Mass/Vol] 1.18 mg/dL Normal 0.70-1.30 [facility] Comment on above: Performed By: #### BMP #### [facility] [address] [address] [address] Shruti Roper EGFR-AF CITIZEN [place] >60 Normal >=60 [facility] Comment on above: Performed By: #### BMP #### [facility] [address] [address] [address] Shruti Roper EGFR-NON AF CITIZEN OF [place] 59 mL/min/1.73m2 Critically low >=60 [facility] Comment on above: Performed By: #### BMP #### [facility] [address] [place] [address] Dr. Shruti Roper Glucose [Mass/Vol] 205 mg/dL Critically high 74-106 [facility] Comment on above: Performed By: #### BMP #### [facility] [address] [address] [address] Shruti Roper Potassium [Moles/Vol] 4.3 mmol/L Normal 3.5-5.1 [facility] Comment on above: Performed By: #### BMP #### [facility] [address] [place] [address] Dr. Shruti Roper Sodium [Moles/Vol] 139 mmol/L Normal 136-145 [facility] Comment on above: Performed By: #### BMP #### [facility] [address] [address] [address] Shruti Roper Urea nitrogen [Mass/Vol] 17.0 mg/dL Normal 7.0-18.0 [facility] Comment on above: Performed By: #### BMP #### [facility] [address] [address] [address] Shruti Roper Urea nitrogen/Creati nine [Mass ratio] 14.4 mg/mg Normal [facility] Comment on above: Performed By: #### BMP #### [facility] [address] [address] [address] Shruti Roper CBC AUTO DIFFon 07-04-2022 BASO # 0.0 103/ul Normal 0.0-0.1 [facility] Comment on above: Performed By: #### CBC #### [facility] [address] [address] [address] Shruti Roper Basophils/100 WBC (Bld) 0.4 % Normal 0.2-2.0 [facility] Comment on above: Performed By: #### CBC #### [facility] [address] [place] [address] Dr. Shruti Roper EO # 0.1 103/ul Normal 0.0-0.7 [facility] Comment on above: Performed By: #### CBC #### [facility] [address] [place] [address] Dr. Shruti Roper Eosinophils/100 WBC (Bld) 1.5 % Normal 0.9-7.0 [facility] Comment on above: Performed By: #### CBC #### [facility] [address] [place] [address] Dr. Shruti Roper Erythrocyte distribution width (RBC) [Ratio] 16.0 % Critically high 11.0-15.0 [facility] Comment on above: Performed By: #### CBC #### [facility] [address] [place] [address] Dr. Shruti Roper Hematocrit (Bld) [Volume fraction] 44.5 % Normal 42.0-54.0 [facility] Comment on above: Performed By: #### CBC #### [facility] [address] [place] [address] Dr. Shruti Roper Hemoglobin (Bld) [Mass/Vol] 14.6 g/dL Normal 14.0-18.0 [facility] Comment on above: Performed By: #### CBC #### [facility] [address] [place] [address] Dr. Shruti Roper IG # 0.04 10e3/ul Critically high 0.00-0.03 [facility] Comment on above: Performed By: #### CBC #### [facility] [address] [place] [address] Dr. Shruti Roper IG % 0.4 % Normal 0.0-0.5 [facility] Comment on above: Performed By: #### CBC #### [facility] [address] [place] [address] Dr. Shruti Roper LYMPH # 2.6 103/ul Normal 1.2-3.8 [facility] Comment on above: Performed By: #### CBC #### [facility] [address] [place] [address] Dr. Shruti Roper Lymphocytes/100 WBC (Bld) 26.8 % Normal 20.5-60.0 [facility] Comment on above: Performed By: #### CBC #### [facility] [address] [place] [address] Dr. Shruti Roper MANUAL DIFF REQ NO Normal [facility] Comment on above: Performed By: #### CBC #### [facility] [address] [place] [address] Dr. Shruti Roper MCH (RBC) [Entitic mass] 26.7 pg Normal 25.9-34.0 [facility] Comment on above: Performed By: #### CBC #### [facility] [address] [place] [address] Dr. Shruti Roper MCHC (RBC) [Mass/Vol] 32.8 g/dL Normal 29.9-35.2 [facility] Comment on above: Performed By: #### CBC #### [facility] [address] [place] [address] Dr. Shruti Roper MCV (RBC) [Entitic vol] 81.5 fL Normal 80.0-94.0 [facility] Comment on above: Performed By: #### CBC #### [facility] [address] [place] [address] Dr. Shruti Roper MONO # 1.0 103/ul Critically high 0.3-0.8 [facility] Comment on above: Performed By: #### CBC #### [facility] [address] [place] [address] Dr. Shruti Roper Monocytes/100 WBC (Bld) 10.8 % Normal 1.7-12.0 [facility] Comment on above: Performed By: #### CBC #### [facility] [address] [place] [address] Dr. Shruti Roper NEUT # 5.8 103/ul Normal 1.4-6.5 [facility] Comment on above: Performed By: #### CBC #### [facility] [address] [address] [address] Shruti Roper Neutrophils/100 WBC (Bld) 60.1 % Normal 43.0-75.0 [facility] Comment on above: Performed By: #### CBC #### [facility] [address] [place] [address] Dr. Shruti Roper Platelet mean volume (Bld) [Entitic vol] 10.5 fL Normal 9.5-13.5 [facility] Comment on above: Performed By: #### CBC #### [facility] [address] [place] [address] Dr. Shruti Roper PLT 216 103/ul Normal 150-450 [facility] Comment on above: Performed By: #### CBC #### [facility] [address] [place] [address] Dr. Shruti Roper RBC 5.46 106/ul Normal 4.70-6.10 [facility] Comment on above: Performed By: #### CBC #### [facility] [address] [place] [address] Dr. Shruti Roper WBC 9.6 103/ul Normal 4.0-11.0 [facility] Comment on above: Performed By: #### CBC #### [facility] [address] [place] [address] Dr. Shruti Roper PROF CHEM 8 (BAS METB)on Anion gap [Moles/Vol] 8.9 mmol/L Normal [facility] Comment on above: Performed By: #### BMP ####[facility] ital [address] [address]Dr. Shruti Roper Calcium [Mass/Vol] 8.6 mg/dL Normal 8.5-10.1 [facility] Comment on above: Performed By: #### BMP ####[facility] ital [address] [address]Dr. Shruti Roper Chloride [Moles/Vol] 106 mmol/L Normal 98-107 [facility] Comment on above: Performed By: #### BMP ####[facility] [address] [address]Dr. Srhuti Roper CO2 [Moles/Vol] 31.3 mmol/L Normal 21.0-32.0 [facility] Comment on above: Performed By: #### BMP ####[facility] ital [address] [address]Dr. Shruti Roper Creatinine [Mass/Vol] 1.15 mg/dL Normal 0.70-1.30 [facility] Comment on above: Performed By: #### BMP ####[facility] ital [address] [address]Dr. Shruti Roper EGFR-AF CITIZEN [place] >60 Normal >=60 [facility] Comment on above: Performed By: #### BMP ####[facility] ital [address] [address]Dr. Shruti Roper EGFR-NON AF CITIZEN OF [place] >60 Normal >=60 [facility] Comment on above: Performed By: #### BMP ####[facility] [address] [address]Dr. Shruti Roper Glucose [Mass/Vol] 117 mg/dL Critically high 74-106 [facility] Comment on above: Performed By: #### BMP ####[facility] [address] [address]Dr. Shruti Roper Potassium [Moles/Vol] 4.2 mmol/L Normal 3.5-5.1 [facility] Comment on above: Performed By: #### BMP ####[facility] ital [address] [address]Dr. Shruti Roper Sodium [Moles/Vol] 142 mmol/L Normal 136-145 [facility] Comment on above: Performed By: #### BMP ####[facility] ital [address] [id number]. Shruti Roper Urea nitrogen [Mass/Vol] 11.0 mg/dL Normal 7.0-18.0 [facility] Comment on above: Performed By: #### BMP ####[facility] ital [address] [address]Dr. Shruti Roper Urea nitrogen/Creati nine [Mass ratio] 9.6 mg/mg Normal [facility] Comment on above: Performed By: #### BMP ####[facility] [address] [address]Dr. Shruti Roper ELECTROLYTESon 06-24-2022 Anion gap [Moles/Vol] 6.8 mmol/L Normal [facility] Comment on above: Performed By: #### ELEC ####[facility] [address] [address]Dr. Srhuti Roper Chloride [Moles/Vol] 106 mmol/L Normal 98-107 [facility] Comment on above: Performed By: #### ELEC ####[facility] [address] [address]Dr. Shruti Roper CO2 [Moles/Vol] 32.0 mmol/L Normal 21.0-32.0 [facility] Comment on above: Performed By: #### ELEC ####[facility] [address] [address]Dr. Shruti Roper Potassium [Moles/Vol] 4.8 mmol/L Normal 3.5-5.1 [facility] Comment on above: Performed By: #### ELEC ####[facility] [address] [address]Dr. Shruti Roper Sodium [Moles/Vol] 140 mmol/L Normal 136-145 [facility] Comment on above: Performed By: #### ELEC ####[facility] [address] [address]Dr. Shruti Roper PROTIMEon 06-24-2022 INR Coag (PPP) [Relative time] 1.04 {INR} Normal [facility] Comment on above: Performed By: #### PT #### [facility] [address] [place] [address] [address] Shruti Roper INR GUIDELINES SEE BELOW Normal [facility] Comment on above: Result Comment: DESIRED INR: 2.0 - 3.0 C ONDITIONS NOT LISTED BELOW 2.5 - 3.5 FOR PROSTHETIC HEART VALVE REPLACEMENT 2.5 - 3.5 RECURRENT THROMBOSIS Performed By: #### P T #### [facility] [address] [place], [place] [address] Dr. Shruti Roper PT Coag (PPP) [Time] 11.2 s Normal 9.0-11.6 [facility] Comment on above: Performed By: #### PT #### [facility] [address] [place] [address] [address] [address] Shruti Roper XR CHEST 2 Von [...] SCOTT JOHNSON Date: 2022-06-24 10:36 Normal [facility] XR CHEST 2 Von 05-07-2022 XR [...] by: NICOLE THOMAS Date: 2022-05-07 15:08 Normal [facility] ECHOCARDIO M/2D COMPLETEon 1 ECHOCARDIO M/2D COMPLETE Patient: YAJAIRA BARROSO Exam Date: 04/01/2022 : 1940 Gender:M Ordering : DR JULIO PATTON D.O. Admission #: [id number] Family : BLAINE AKUA Smalls Order #: [id number] CLICK HERE TO VIEW EXAM ECHOCARDIOGRAM REPORT [...] M.D. on 04/02/2022 at 14:45 Normal [facility] PROF CHEM 8 (BAS METB)on Anion gap [Moles/Vol] 11.3 mmol/L Normal [facility] Comment on above: Performed By: #### BMP ####[facility] [address] [id number]. Shruti Roper Calcium [Mass/Vol] 8.8 mg/dL Normal 8.5-10.1 [facility] Comment on above: Performed By: #### BMP ####[facility] [address] [address]Dr. Shruti Roper Chloride [Moles/Vol] 103 mmol/L Normal 98-107 [facility] Comment on above: Performed By: #### BMP ####[facility] [address] [address]Dr. Shruti Roper CO2 [Moles/Vol] 30.7 mmol/L Normal 21.0-32.0 [facility] Comment on above: Performed By: #### BMP ####[facility] [address] [address]Dr. Shruti Roper Creatinine [Mass/Vol] 1.28 mg/dL Normal 0.70-1.30 [facility] Comment on above: Performed By: #### BMP ####[facility] [address] [address]Dr. Shruti Roper EGFR-AF [place]IZ[place] >60 Normal >=60 [facility] Comment on above: Performed By: #### BMP ####[facility] ital [address] [address]Dr. Shruti Roper EGFR-NON AF CITIZEN [place] 54 mL/min/1.73m2 Critically low >=60 [facility] Comment on above: Performed By: #### BMP ####[facility] [address] [address]Dr. Shruti Roper Glucose [Mass/Vol] 106 mg/dL Normal 74-106 [facility] Comment on above: Performed By: #### BMP ####[facility] [address] [address]Dr. Shruti Roper Potassium [Moles/Vol] 4.0 mmol/L Normal 3.5-5.1 [facility] Comment on above: Performed By: #### BMP ####[facility] [address] [address]Dr. Shruti Roper Sodium [Moles/Vol] 141 mmol/L Normal 136-145 [facility] Comment on above: Performed By: #### BMP ####[facility] [address] [address]Dr. Shruti Roper Urea nitrogen [Mass/Vol] 18.0 mg/dL Normal 7.0-18.0 [facility] Comment on above: Performed By: #### BMP ####[facility] [address] [address]Dr. Shruti Roper Urea nitrogen/Creati nine [Mass ratio] 14.1 mg/mg Normal [facility] Comment on above: Performed By: #### BMP ####[facility] [address] [address]DrLelo Roper BNPon 03-28-2022 Natriuretic peptide B (Bld) [Mass/Vol] 1722.0 pg/mL Normal <=1,800.0 [facility] Comment on above: Performed By: #### CMP, BNP, TSH ####[facility] [address] [address]DrLelo Roper CBC AUTO DIFFon 03-28-2022 BASO # 0.0 103/ul Normal 0.0-0.1 [facility] Comment on above: Performed By: #### CBC #### [facility] [address] [address] [address] Shruti Roper Basophils/100 WBC (Bld) 0.4 % Normal 0.2-2.0 [facility] Comment on above: Performed By: #### CBC #### [facility] [address] [address] [address] Shruti Roper EO # 0.2 103/ul Normal 0.0-0.7 [facility] Comment on above: Performed By: #### CBC #### [facility] [address] [address] [address] Shruti Roper Eosinophils/100 WBC (Bld) 2.4 % Normal 0.9-7.0 [facility] Comment on above: Performed By: #### CBC #### [facility] [address] [address] [address] Shruti Roper Erythrocyte distribution width (RBC) [Ratio] 14.1 % Normal 11.0-15.0 [facility] Comment on above: Performed By: #### CBC #### [facility] [address] [address] [address] Shruti Roper Hematocrit (Bld) [Volume fraction] 43.1 % Normal 42.0-54.0 [facility] Comment on above: Performed By: #### CBC #### [facility] [address] [address] [address] Shruti Roper Hemoglobin (Bld) [Mass/Vol] 13.4 g/dL Critically low 14.0-18.0 [facility] Comment on above: Performed By: #### CBC #### [facility] [address] [place] [address] Dr. Shruti Roper IG # 0.03 10e3/ul Normal 0.00-0.03 [facility] Comment on above: Performed By: #### CBC #### [facility] [address] [address] [address] Shruti Roper IG % 0.4 % Normal 0.0-0.5 [facility] Comment on above: Performed By: #### CBC #### [facility] [address] [address] [address] Shruti Roper LYMPH # 1.8 103/ul Normal 1.2-3.8 [facility] Comment on above: Performed By: #### CBC #### [facility] [address] [address] [address] Shruti Roper Lymphocytes/100 WBC (Bld) 25.6 % Normal 20.5-60.0 [facility] Comment on above: Performed By: #### CBC #### [facility] [address] [address] [address] Shruti Roper MANUAL DIFF REQ NO Normal [facility] Comment on above: Performed By: #### CBC #### [facility] [address] [address] [address] Shruti Roper MCH (RBC) [Entitic mass] 26.3 pg Normal 25.9-34.0 [facility] Comment on above: Performed By: #### CBC #### [facility] [address] [place] [address] Dr. Shruti Roper MCHC (RBC) [Mass/Vol] 31.1 g/dL Normal 29.9-35.2 [facility] Comment on above: Performed By: #### CBC #### [facility] [address] [place] [address] Dr. Shruti Roper MCV (RBC) [Entitic vol] 84.5 fL Normal 80.0-94.0 [facility] Comment on above: Performed By: #### CBC #### [facility] [address] [place] [address] Dr. Shruti Roper MONO # 0.7 103/ul Normal 0.3-0.8 [facility] Comment on above: Performed By: #### CBC #### [facility] [address] [place] [address] Dr. Shruti Roper Monocytes/100 WBC (Bld) 9.8 % Normal 1.7-12.0 [facility] Comment on above: Performed By: #### CBC #### [facility] [address] [place] [address] Dr. Srhuti Roper NEUT # 4.3 103/ul Normal 1.4-6.5 [facility] Comment on above: Performed By: #### CBC #### [facility] [address] [place] [address] Dr. Shruti Roper Neutrophils/100 WBC (Bld) 61.4 % Normal 43.0-75.0 [facility] Comment on above: Performed By: #### CBC #### [facility] [address] [place] [address] Dr. Shruti Roper Platelet mean volume (Bld) [Entitic vol] 11.8 fL Normal 9.5-13.5 [facility] Comment on above: Performed By: #### CBC #### [facility] [address] [place] [address] Dr. Shruti Roper PLT 206 103/ul Normal 150-450 [facility] Comment on above: Performed By: #### CBC #### [facility] [address] [place] [address] Dr. Shruti Roper RBC 5.10 106/ul Normal 4.70-6.10 [facility] Comment on above: Performed By: #### CBC #### [facility] [address] [place] [address] Dr. Shruti Roper WBC 7.0 103/ul Normal 4.0-11.0 [facility] Comment on above: Performed By: #### CBC #### [facility] [address] [place] [address] Dr. Shruti Roper PROF 14(COMP METB)on 022 Albumin [Mass/Vol] 3.1 g/dL Critically low 3.4-5.0 [facility] Comment on above: Performed By: #### CMP, BNP, TSH #### [facility] [address] [place] [address] Dr. Shruti Roper Albumin/Globuli n [Mass ratio] 0.9 {ratio} Normal [facility] Comment on above: Performed By: #### CMP, BNP, TSH #### [facility] [address] [place] [address] Dr. Shruti Roper ALP [Catalytic activity/Vol] 73 U/L Normal 46-116 [facility] Comment on above: Performed By: #### CMP, BNP, TSH #### [facility] [address] [place] [address] Dr. Shruti Roper ALT [Catalytic activity/Vol] 13 U/L Critically low 16-63 [facility] Comment on above: Performed By: #### CMP, BNP, TSH #### [facility] [address] [place] [address] Dr. Shruti Roper Anion gap [Moles/Vol] 8.3 mmol/L Normal [facility] Comment on above: Performed By: #### CMP, BNP, TSH #### [facility] [address] [place] [address] Dr. Shruti Roper AST [Catalytic activity/Vol] 13 U/L Critically low 15-37 [facility] Comment on above: Performed By: #### CMP, BNP, TSH #### [facility] [address] [address] [address] Shruti Roper Bilirubin [Mass/Vol] 1.1 mg/dL Critically high 0.2-1.0 [facility] Comment on above: Performed By: #### CMP, BNP, TSH #### [facility] [address] [place] [address] Dr. Shruti Roper Calcium [Mass/Vol] 8.6 mg/dL Normal 8.5-10.1 [facility] Comment on above: Performed By: #### CMP, BNP, TSH #### [facility] [address] [place] [address] Dr. Shruti Roper Chloride [Moles/Vol] 107 mmol/L Normal 98-107 [facility] Comment on above: Performed By: #### CMP, BNP, TSH #### [facility] [address] [place] [address] Dr. Shruti Roper CO2 [Moles/Vol] 31.7 mmol/L Normal 21.0-32.0 [facility] Comment on above: Performed By: #### CMP, BNP, TSH #### [facility] [address] [place] [address] Dr. Shruti Roper Creatinine [Mass/Vol] 1.13 mg/dL Normal 0.70-1.30 [facility] Comment on above: Performed By: #### CMP, BNP, TSH #### [facility] [address] [place] [address] Dr. Shruti Roper EGFR-AF [place]IZ[place] >60 Normal >=60 [facility] Comment on above: Performed By: #### CMP, BNP, TSH #### [facility] [address] [place] [address] Dr. Shruti Roper EGFR-NON AF CITIZEN OF [place] >60 Normal >=60 [facility] Comment on above: Performed By: #### CMP, BNP, TSH #### [facility] [address] [place] [address] Dr. Shruti Roper Globulin (S) [Mass/Vol] 3.4 g/dL Normal [facility] Comment on above: Performed By: #### CMP, BNP, TSH #### [facility] [address] [place] [address] Dr. Shruti Roper Glucose [Mass/Vol] 145 mg/dL Critically high 74-106 [facility] Comment on above: Performed By: #### CMP, BNP, TSH #### [facility] [address] [place] [address] Dr. Shruti Roper Potassium [Moles/Vol] 4.0 mmol/L Normal 3.5-5.1 [facility] Comment on above: Performed By: #### CMP, BNP, TSH #### [facility] [address] [place] [address] Dr. Shruti Roper Protein [Mass/Vol] 6.5 g/dL Normal 6.4-8.2 [facility] Comment on above: Performed By: #### CMP, BNP, TSH #### [facility] [address] [place] [address] Dr. Shruti Roper Sodium [Moles/Vol] 143 mmol/L Normal 136-145 [facility] Comment on above: Performed By: #### CMP, BNP, TSH #### [facility] [address] [place] [address] Dr. Shruti Roper Urea nitrogen [Mass/Vol] 17.0 mg/dL Normal 7.0-18.0 [facility] Comment on above: Performed By: #### CMP, BNP, TSH #### [facility] [address] [place] [address] Dr. Shruti Roper Urea nitrogen/Creati nine [Mass ratio] 15.0 mg/mg Normal [facility] Comment on above: Performed By: #### CMP, BNP, TSH #### [facility] [address] [place] [address] Dr. Shruti Roper TSHon 03-28-2022 TSH 2.294 uIU/mL Normal 0.358-3.74 0 [facility] Comment on above: Performed By: #### CMP, BNP, TSH #### [facility] [address] [place], [place] [address] Dr. Shruti Roper XR CHEST 2 Von [...] SCOTT JOHNSON Date: 2022-03-28 13:14 Normal [facility] PROF CHEM 8 (BAS METB)on Anion gap [Moles/Vol] 10.0 mmol/L Normal [facility] Comment on above: Performed By: #### BMP ####[facility] ital [id number] [address]Dr. Shruti Roper Calcium [Mass/Vol] 8.8 mg/dL Normal 8.5-10.1 [facility] Comment on above: Performed By: #### BMP ####[facility] ital [address] [address]Dr. Shruti Roper Chloride [Moles/Vol] 105 mmol/L Normal 98-107 [facility] Comment on above: Performed By: #### BMP ####[facility] ital [address] [address]Dr. Shruti Roper CO2 [Moles/Vol] 30.6 mmol/L Normal 21.0-32.0 [facility] Comment on above: Performed By: #### BMP ####[facility] ital [address] [address]Dr. Shruti Roper Creatinine [Mass/Vol] 1.24 mg/dL Normal 0.70-1.30 [facility] Comment on above: Performed By: #### BMP ####[facility] ital [address] [address]Dr. Shruti Roper EGFR-AF [place] >60 Normal >=60 [facility] Comment on above: Performed By: #### BMP ####[facility] ital [address] [address]Dr. Shruti Roper EGFR-NON AF [place]IZ[place] 56 mL/min/1.73m2 Critically low >=60 [facility] Comment on above: Performed By: #### BMP ####[facility] ital [address] [address]Dr. Shruti Roper Glucose [Mass/Vol] 122 mg/dL Critically high 74-106 [facility] Comment on above: Performed By: #### BMP ####[facility] ital [address] [address]Dr. Shruti Judson Potassium [Moles/Vol] 4.6 mmol/L Normal 3.5-5.1 [facility] Comment on above: Performed By: #### BMP ####[facility] ital [address] [address]Dr. Shruti Judson Sodium [Moles/Vol] 141 mmol/L Normal 136-145 [facility] Comment on above: Performed By: #### BMP ####[facility] [address] [address]Dr. Shruti Judson Urea nitrogen [Mass/Vol] 18.0 mg/dL Normal 7.0-18.0 [facility] Comment on above: Performed By: #### BMP ####[facility] ital [address] [address]Dr. Shruti Judson Urea nitrogen/Creati nine [Mass ratio] 14.5 mg/mg Normal [facility] Comment on above: Performed By: #### BMP ####[facility] ital [address] [address]Dr. Shruti Roper US CAROTID ART BILon 022 [...] NICOLE THOMAS Date: 2022-01-22 06:43 Normal [facility] XR LSPINE 2_3 VIEWSon 2021 XR LSPINE 2_3 VIEWS EXAMINATION: XR LSPINE 2_3 VIEWS HISTORY: Low back pain COMPARISON: No relevant comparison available. FINDINGS: BONES: 2 mm retrolisthesis of L2 on L3 and L3 on L4. Mild degenerative spondylosis. Agwh-wi-fblnvcwa facet osteoarthropathy. DISC SPACES: Normal. No significant disc height narrowing, subluxation, or endplate abnormality. PARASPINOUS: Negative. No paraspinous abnormality is seen. OTHER: Vascular calcification IMPRESSION: Ietb-oe-poaggidt degenerative changes Electronically authenticated by: NICOLE THOMAS Date: 2021-12-02 20:57 Normal [facility] BASIC METABOLIC PANELon 12-0 Calcium mass conc 9.0 mg/dL Normal 8.6-10.3 [facility] Comment on above: Order Comment: No: Do not add to previou s draw Performed By: #### 0 0071, 90907, 21354 ####[facility] [place] [address], [facility] Chloride molar conc 104 mmol/L Normal 98-107 [facility] Comment on above: Order Comment: No: Do not add to previou s draw Performed By: #### 0 0071, 37088, 41075 ####[facility] [place] [address], [facility] CO2 molar conc 25 mmol/L Normal 21-31 [facility] Comment on above: Order Comment: No: Do not add to previou s draw Performed By: #### 0 0071, 13366, 58937 ####[facility] [place] [address], [facility] Creatinine mass conc 1.02 mg/dL Normal 0.70-1.30 [facility] Comment on above: Order Comment: No: Do not add to previou s draw Performed By: #### 0 0071, 44693, 06520 ####[facility] [place] [address], [facility] GFR/1.73 sq M predicted among blacks MDRD vol rate/area (S/P/Bld) mL/min/{1.73_m2} Normal >60 [facility] Comment on above: Order Comment: No: Do not add to previou s draw Result Comment: Calc ulation may not be valid for patients over 70 years Performed By: #### 0 0071, 13115, 63344 ####[facility] [facility] [place] [address], [facility] GFR/1.73 sq M predicted among non-blacks MDRD vol rate/area (S/P/Bld) mL/min/{1.73_m2} Normal >60 [facility] Comment on above: Order Comment: No: Do not add to previou s draw Result Comment: Calc ulation may not be valid for patients over 70 years Performed By: #### 0 0071, 40851, 30278 ####[facility] [place] [address], [facility] Glucose mass conc 123 mg/dL High 70-100 [facility] Comment on above: Order Comment: No: Do not add to previou s draw Performed By: #### 0 0071, 25530, 50135 ####[facility] Potassium molar conc 3.9 mmol/L Normal 3.5-5.1 [facility] Comment on above: Order Comment: No: Do not add to previou s draw Performed By: #### 0 0071, 96651, 10736 ####[facility] [facility].[address] Sodium molar conc 137 mmol/L Normal 136-145 [facility] Comment on above: Order Comment: No: Do not add to previou s draw Performed By: #### 0 0071, 78839, 62929 ####[facility] [facility].[address] Urea nitrogen mass conc 14 mg/dL Normal 7-25 [facility] Comment on above: Order Comment: No: Do not add to previou s draw Performed By: #### 0 1, , 20178 ####[facility] [facility].[address] CBC W/DIFFon 06-06-2018 ABS BASOPHILS 0.0 10*3/uL Normal 0.0-0.2 [facility] Comment on above: Order Comment: No: Do not add to previou s draw Performed By: #### 0 0071, , 79333 ####[facility] [facility].[address] ABS IMM GRANS 0.0 10*3/uL Normal 0.0-0.2 [facility] Comment on above: Order Comment: No: Do not add to previou s draw Performed By: #### 0 0071, , 42691 ####[facility] [facility].[address] ABS NEUTROPHILS 4.4 10*3/uL Normal 1.6-7.6 [facility] Comment on above: Order Comment: No: Do not add to previou s draw Performed By: #### 0 007, , 87804 ####[facility] [place] [address], [facility] Basophils Auto #/vol (Bld) 0.4 % Normal 0.0-1.0 [facility] Comment on above: Order Comment: No: Do not add to previou s draw Performed By: #### 0 007, , 88016 ####[facility] [place] [address], [facility] Eosinophils Auto #/vol (Bld) 0.2 10*3/uL Normal 0.0-0.5 [facility] Comment on above: Order Comment: No: Do not add to previou s draw Performed By: #### 0 70, , 19022 ####[facility] Eosinophils/100 WBC Auto (Bld) 1.9 % Normal 0.0-6.0 [facility] Comment on above: Order Comment: No: Do not add to previou s draw Performed By: #### 0 70, , 01937 ####[facility] Erythrocyte distribution width Auto Ratio (RBC) 12.9 % Normal 11.5-15.0 [facility] Comment on above: Order Comment: No: Do not add to previou s draw Performed By: #### 0 70, , 31520 ####[facility] Hematocrit Auto Volume Fraction (Bld) 39.2 % Normal 39.0-50.0 [facility] Comment on above: Order Comment: No: Do not add to previou s draw Performed By: #### 0 007, , 43948 ####[facility] Hemoglobin mass conc (Bld) 13.2 g/dL Normal 13.0-17.0 [facility] Comment on above: Order Comment: No: Do not add to previou s draw Performed By: #### 0 007, 31128, 47941 ####[facility] [facility].[address] IMMATURE GRANS 0.1 % Normal 0.0-1.0 [facility] Comment on above: Order Comment: No: Do not add to previou s draw Performed By: #### 0 007, , 14163 ####[facility] Lymphocytes Auto #/vol (Bld) 4.1 10*3/uL High 1.2-4.0 [facility] Comment on above: Order Comment: No: Do not add to previou s draw Performed By: #### 0 70, , 60916 ####[facility] Lymphocytes/100 WBC Auto (Bld) 43.0 % Normal 20.0-45.0 [facility] Comment on above: Order Comment: No: Do not add to previou s draw Performed By: #### 0 70, , 54401 ####[facility] MCH Auto Entitic mass (RBC) 27.6 pg Normal 27.0-33.0 [facility] Comment on above: Order Comment: No: Do not add to previou s draw Performed By: #### 0 0071, , 60516 ####[facility] [facility].[address] MCHC Auto mass conc (RBC) 33.7 g/dL Normal 32.0-35.0 [facility] Comment on above: Order Comment: No: Do not add to previou s draw Performed By: #### 0 007, 93699, 93648 ####[facility] MCV Auto Entitic volume (RBC) 82.0 fL Normal 82.0-98.0 [facility] Comment on above: Order Comment: No: Do not add to previou s draw Performed By: #### 0 007, , 97256 ####[facility] Monocytes Auto #/vol (Bld) 0.8 10*3/uL Normal 0.1-1.0 [facility] Comment on above: Order Comment: No: Do not add to previou s draw Performed By: #### 0 70, , 32327 ####[facility].[address] MONOS 8.3 % Normal 5.0-12.0 [facility] Comment on above: Order Comment: No: Do not add to previou s draw Performed By: #### 0 70, , 89349 ####[facility].[address] Neutrophils/100 WBC Auto (Bld) 46.3 % Normal 40.0-72.0 [facility] Comment on above: Order Comment: No: Do not add to previou s draw Performed By: #### 0 70, , 47226 ####[facility] Nucleated RBC/100 WBC Ratio (Bld) 0 % Normal 0-0 [facility] Comment on above: Order Comment: No: Do not add to previou s draw Performed By: #### 0 007, , 71544 ####[facility] [place] [address], [facility] PLAT CNT 239 10*3/uL Normal 150-400 [facility] Comment on above: Order Comment: No: Do not add to previou s draw Performed By: #### 0 0071, 04581, 81739 ####[facility] [place] [address], [facility] RBC Auto #/vol (Bld) 4.78 10*6/uL Normal 4.20-5.70 [facility] Comment on above: Order Comment: No: Do not add to previou s draw Performed By: #### 0 0071, 96305, 13153 ####[facility] [place] [address], [facility] WBC Auto #/vol (Bld) 9.54 10*3/uL Normal 4.00-10.60 [facility] Comment on above: Order Comment: No: Do not add to previou s draw Performed By: #### 0 0071, 28432, 13415 ####[facility] [facility] [place] [address], [facility] BASIC METABOLIC PANELon 12-0 Calcium mass conc 8.7 mg/dL Normal 8.6-10.3 [facility] Comment on above: Order Comment: No: Do not add to previou s draw Performed By: #### 0 0071, 96478, 82907 ####[facility] [place] [address], [facility] Chloride molar conc 104 mmol/L Normal 98-107 [facility] Comment on above: Order Comment: No: Do not add to previou s draw Performed By: #### 0 0071, 18315, 71608 ####[facility] [place] [address], [facility] CO2 molar conc 30 mmol/L Normal 21-31 [facility] Comment on above: Order Comment: No: Do not add to previou s draw Performed By: #### 0 0071, 38256, 62811 ####[facility] [place] [address], [facility] Creatinine mass conc 0.99 mg/dL Normal 0.70-1.30 [facility] Comment on above: Order Comment: No: Do not add to previou s draw Performed By: #### 0 0071, 70242, 13368 ####[facility] [place] [address], [facility] GFR/1.73 sq M predicted among blacks MDRD vol rate/area (S/P/Bld) mL/min/{1.73_m2} Normal >60 [facility] Comment on above: Order Comment: No: Do not add to previou s draw Result Comment: Calc ulation may not be valid for patients over 70 years Performed By: #### 0 0071, 06804, 39191 ####[facility] [place] [address], [facility] GFR/1.73 sq M predicted among non-blacks MDRD vol rate/area (S/P/Bld) mL/min/{1.73_m2} Normal >60 [facility] Comment on above: Order Comment: No: Do not add to previou s draw Result Comment: Calc ulation may not be valid for patients over 70 years Performed By: #### 0 0071, 61337, 82418 ####[facility] [place] [address], [facility] Glucose mass conc 112 mg/dL High 70-100 [facility] Comment on above: Order Comment: No: Do not add to previou s draw Performed By: #### 0 0071, 19971, 58519 ####[facility] [place] [address], [facility] Potassium molar conc 3.9 mmol/L Normal 3.5-5.1 [facility] Comment on above: Order Comment: No: Do not add to previou s draw Performed By: #### 0 0071, 25244, 31640 ####[facility] Sodium molar conc 138 mmol/L Normal 136-145 [facility] Comment on above: Order Comment: No: Do not add to previou s draw Performed By: #### 0 0071, 07687, 32040 ####[facility] [facility].[address] Urea nitrogen mass conc 14 mg/dL Normal 7-25 [facility] Comment on above: Order Comment: No: Do not add to previou s draw Performed By: #### 0 0071, 80747, 11244 ####[facility] [facility].[address] CBC COMPLETE BLOOD COUNTon 1 08-06-2017 Erythrocyte distribution width Auto Ratio (RBC) 13.0 % Normal 11.5-15.0 [facility] Comment on above: Order Comment: No: Do not add to previou s draw Performed By: #### 0 70, , 12542 ####[facility] [facility].[address] Hematocrit Auto Volume Fraction (Bld) 40.4 % Normal 39.0-50.0 [facility] Comment on above: Order Comment: No: Do not add to previou s draw Performed By: #### 0 0071, , 95067 ####[facility].[address] Hemoglobin mass conc (Bld) 13.3 g/dL Normal 13.0-17.0 [facility] Comment on above: Order Comment: No: Do not add to previou s draw Performed By: #### 0 0071, 71343, 46205 ####[facility] [place] [address], [facility] MCH Auto Entitic mass (RBC) 27.3 pg Normal 27.0-33.0 [facility] Comment on above: Order Comment: No: Do not add to previou s draw Performed By: #### 0 0071, , 34213 ####[facility] [facility].[address] MCHC Auto mass conc (RBC) 32.9 g/dL Normal 32.0-35.0 [facility] Comment on above: Order Comment: No: Do not add to previou s draw Performed By: #### 0 007, , 39269 ####[facility].[address] MCV Auto Entitic volume (RBC) 83.0 fL Normal 82.0-98.0 [facility] Comment on above: Order Comment: No: Do not add to previou s draw Performed By: #### 0 70, , 53195 ####[facility] [facility].[address] Nucleated RBC/100 WBC Ratio (Bld) 0 % Normal 0-0 [facility] Comment on above: Order Comment: No: Do not add to previou s draw Performed By: #### 0 70, , 23882 ####[facility] [facility].[address] PLAT CNT 233 10*3/uL Normal 150-400 [facility] Comment on above: Order Comment: No: Do not add to previou s draw Performed By: #### 0 007, , 00776 ####[facility] [facility].[address] RBC Auto #/vol (Bld) 4.87 10*6/uL Normal 4.20-5.70 [facility] Comment on above: Order Comment: No: Do not add to previou s draw Performed By: #### 0 007, , 77158 ####[facility] [facility] [place] [address], [facility] WBC Auto #/vol (Bld) 8.97 10*3/uL Normal 4.00-10.60 [facility] Comment on above: Order Comment: No: Do not add to previou s draw Performed By: #### 0 0071, 93034, 58744 ####[place] [address] [place] [address], [facility] Cardiovascular Lab Reporton 06-05-2018 Cardiovascular Lab Report [facility]: [facility] Enzo Donaldson MR #: [id number] of Physician: Gunnar Wallace M.D.Division of Service Date: 06/04/2018Cardiology Birthdate: 1Adult Cardiovascular Room #: 3CD [id number] [place] [id number] [place], [place] [address]Ogxvn Fax Cardiovascular Laboratory ReportMrLelo Barroso is a patient that I see in [place]. He has had problems withatrial fibrillation. I [...] 06/04/2018/12:56 P/Gunnar Wallace M.D.Date Trans: 06/05/2018 03:36 A/mmoDN_JN:[id number]: Julio Patton D.O. [address] [place] [address] A [facility] [address] Normal [facility] MAGNESIUM BLOODon 06-05-2018 Magnesium mass conc 2.1 mg/dL Normal 1.9-2.7 [facility] Comment on above: Order Comment: No: Do not add to previou s draw Performed By: #### 0 0071, 02083, 65205 ####[facility] PHOSPHORUS BLOODon 8 Phosphate mass conc 3.0 mg/dL Normal 2.5-5.0 [facility] Comment on above: Order Comment: No: Do not add to previou s draw Performed By: #### 0 0071, 93141, 76967 ####[facility] History and Physicalon 06-04 History and Physical MR[id number] Bar[facility]so Admitted: 06/04/2018 [...] count, WBC 9.1, hemoglobin 14.3, platelet 252, [id number]. EKG sinus rhythm with first-degree AV block.ASSESSMENT:1. [...] 06/04/2018/01:34 P/Xin Elliott M.D.Date Trans: 06/04/2018 02:27 P/mmoDN_JN:[id number] Normal [facility] CBC COMPLETE BLOOD COUNTon 12-23-2017 Erythrocyte distribution width Auto Ratio (RBC) 13.6 % Normal 11.5-15.0 [facility] Comment on above: Order Comment: No: Do not add to previou s draw Performed By: #### 0 007, , 99392 ####[facility] Hematocrit Auto Volume Fraction (Bld) 43.2 % Normal 39.0-50.0 [facility] Comment on above: Order Comment: No: Do not add to previou s draw Performed By: #### 0 0071, 21916, 63517 ####[facility] [place] [address], [facility] Hemoglobin mass conc (Bld) 14.3 g/dL Normal 13.0-17.0 [facility] Comment on above: Order Comment: No: Do not add to previou s draw Performed By: #### 0 0071, 01313, 81317 ####[facility] [place] [address], [facility] MCH Auto Entitic mass (RBC) 27.9 pg Normal 27.0-33.0 [facility] Comment on above: Order Comment: No: Do not add to previou s draw Performed By: #### 0 0071, 16988, 02002 ####[facility] [place] [address], [facility] MCHC Auto mass conc (RBC) 33.1 g/dL Normal 32.0-35.0 [facility] Comment on above: Order Comment: No: Do not add to previou s draw Performed By: #### 0 0071, 90670, 63051 ####[facility] MCV Auto Entitic volume (RBC) 84.2 fL Normal 82.0-98.0 [facility] Comment on above: Order Comment: No: Do not add to previou s draw Performed By: #### 0 0071, , 69237 ####[facility] Nucleated RBC/100 WBC Ratio (Bld) 0 % Normal 0-0 [facility] Comment on above: Order Comment: No: Do not add to previou s draw Performed By: #### 0 70, , 63709 ####[facility] PLAT CNT 223 10*3/uL Normal 150-400 [facility] Comment on above: Order Comment: No: Do not add to previou s draw Performed By: #### 0 70, , 13686 ####[facility] RBC Auto #/vol (Bld) 5.13 10*6/uL Normal 4.20-5.70 [facility] Comment on above: Order Comment: No: Do not add to previou s draw Performed By: #### 0 0071, , 88516 ####[facility] WBC Auto #/vol (Bld) 10.61 10*3/uL High 4.00-10.60 [facility] Comment on above: Order Comment: No: Do not add to previou s draw Performed By: #### 0 007, , 70689 ####[facility] COMP METABOLIC PANELon 12-23 Albumin mass conc 3.2 g/dL Low 3.5-5.7 [facility] Comment on above: Order Comment: No: Do not add to previou s draw Performed By: #### 0 0071, 16902, 84294 ####[facility] [place] [address], [facility] ALKALINE PHOSPH 85 IU/L Normal 34-104 [facility] Comment on above: Order Comment: No: Do not add to previou s draw Performed By: #### 0 0071, 18126, 73064 ####[facility] [place] [address], [facility] ALT enzyme act/vol 15 U/L Normal 7-52 [facility] Comment on above: Order Comment: No: Do not add to previou s draw Performed By: #### 0 0071, 92798, 89435 ####[facility] [place] [address], [facility] AST enzyme act/vol 15 U/L Normal 13-39 [facility] Comment on above: Order Comment: No: Do not add to previou s draw Performed By: #### 0 0071, 89591, 14670 ####[facility] [place] [address], [facility] Bilirubin mass conc 0.8 mg/dL Normal 0.3-1.0 [facility] Comment on above: Order Comment: No: Do not add to previou s draw Performed By: #### 0 0071, 24338, 98245 ####[facility] [place] [address], [facility] Calcium mass conc 8.6 mg/dL Normal 8.6-10.3 [facility] Comment on above: Order Comment: No: Do not add to previou s draw Performed By: #### 0 0071, 48470, 69897 ####[facility] [place] [address], [facility] Chloride molar conc 105 mmol/L Normal 98-107 [facility] Comment on above: Order Comment: No: Do not add to previou s draw Performed By: #### 0 0071, 19848, 66054 ####[facility] [place] [address], [place] CO2 molar conc 25 mmol/L Normal 21-31 [facility] Comment on above: Order Comment: No: Do not add to previou s draw Performed By: #### 0 0071, , 85327 ####[facility] [place] [address], [facility] Creatinine mass conc 1.32 mg/dL High 0.70-1.30 [facility] Comment on above: Order Comment: No: Do not add to previou s draw Performed By: #### 0 0071, , 68600 ####[facility] [place] [address], [place] GFR/1.73 sq M predicted among blacks MDRD vol rate/area (S/P/Bld) mL/min/{1.73_m2} Normal >60 [facility] Comment on above: Order Comment: No: Do not add to previou s draw Result Comment: Calc ulation may not be valid for patients over 70 years Performed By: #### 0 0071, , 00955 ####[facility] [place] [address], [facility] GFR/1.73 sq M predicted among non-blacks MDRD vol rate/area (S/P/Bld) 53 ml/min/1.73sq m Abnormal >60 [facility] Comment on above: Order Comment: No: Do not add to previou s draw Result Comment: Calc ulation may not be valid for patients over 70 years Performed By: #### 0 0071, , 72161 ####[facility] [place] [address], [facility] Glucose mass conc 80 mg/dL Normal 70-100 [facility] Comment on above: Order Comment: No: Do not add to previou s draw Performed By: #### 0 0071, 59919, 03428 ####[facility] [place] [address], [facility] Potassium molar conc 4.4 mmol/L Normal 3.5-5.1 [facility] Comment on above: Order Comment: No: Do not add to previou s draw Performed By: #### 0 0071, 56591, 08810 ####[facility] [place] [address], [facility] Protein mass conc 5.4 g/dL Low 6.0-8.3 [facility] Comment on above: Order Comment: No: Do not add to previou s draw Performed By: #### 0 0071, , 96915 ####[facility] [place] [address], [facility] Sodium molar conc 136 mmol/L Normal 136-145 [facility] Comment on above: Order Comment: No: Do not add to previou s draw Performed By: #### 0 0071, , 09903 ####[facility] [place] [address], [facility] Urea nitrogen mass conc 23 mg/dL Normal 7-25 [facility] Comment on above: Order Comment: No: Do not add to previou s draw Performed By: #### 0 0071, 73160, 65703 ####[facility] [place] [address], [place] MAGNESIUM BLOODon 12-23-2017 Magnesium mass conc 2.1 mg/dL Normal 1.9-2.7 [facility] Comment on above: Order Comment: No: Do not add to previou s draw Performed By: #### 0 0071, 45774, 23643 ####[facility] PHOSPHORUS BLOODon 8 Phosphate mass conc 4.5 mg/dL Normal 2.5-5.0 [facility] Comment on above: Order Comment: No: Do not add to previou s draw Performed By: #### 0 0071, 85431, 62822 ####[facility] UFH HEPARIN ASSAYon 12-24-19 18 UNFRACTIONATED HEPARIN 0.59 IU/mL Normal 0.30-0.70 [facility] Comment on above: Result Comment: Rivaroxaban and Apixaban will interfere with the anti Xa assay used tomonitor UFH and LMWH. Performed By: #### 0 0071, 36512, 08420 ####[facility].[address] APTTon 12-22-2017 aPTT Coag time (Bld) 34.1 s Normal 25.0-35.0 [facility] Comment on above: Result Comment: ALL [...] THIS PURPOSE. Performed By: #### 5 6101, 34867 ####[facility].[address] BASIC METABOLIC PANELon 11-28 Calcium mass conc 9.2 mg/dL Normal 8.6-10.3 [facility] Comment on above: Order Comment: No: Do not add to previou s draw Performed By: #### 0 0071, 95208, 15710 ####[facility] [place] [address], [facility] Chloride molar conc 98 mmol/L Normal 98-107 [facility] Comment on above: Order Comment: No: Do not add to previou s draw Performed By: #### 0 0071, 41382, 35954 ####[facility] [place] [address], [facility] CO2 molar conc 24 mmol/L Normal 21-31 [facility] Comment on above: Order Comment: No: Do not add to previou s draw Performed By: #### 0 0071, 04111, 85296 ####[facility] [place] [address], [facility] Creatinine mass conc 0.96 mg/dL Normal 0.70-1.30 [facility] Comment on above: Order Comment: No: Do not add to previou s draw Performed By: #### 0 0071, 48322, 33920 ####[facility] [place] [address], [facility] GFR/1.73 sq M predicted among blacks MDRD vol rate/area (S/P/Bld) mL/min/{1.73_m2} Normal >60 [facility] Comment on above: Order Comment: No: Do not add to previou s draw Result Comment: Calc ulation may not be valid for patients over 70 years Performed By: #### 0 0071, 51525, 82823 ####[facility] [place] [address], [facility] GFR/1.73 sq M predicted among non-blacks MDRD vol rate/area (S/P/Bld) mL/min/{1.73_m2} Normal >60 [facility] Comment on above: Order Comment: No: Do not add to previou s draw Result Comment: Calc ulation may not be valid for patients over 70 years Performed By: #### 0 0071, 35061, 95511 ####[facility] Glucose mass conc 99 mg/dL Normal 70-100 [facility] Comment on above: Order Comment: No: Do not add to previou s draw Performed By: #### 0 0071, 26331, 57605 ####[facility] [facility].[address] Potassium molar conc 3.4 mmol/L Low 3.5-5.1 [facility] Comment on above: Order Comment: No: Do not add to previou s draw Performed By: #### 0 0071, 12222, 89179 ####[facility].[address] Sodium molar conc 129 mmol/L Low 136-145 [facility] Comment on above: Order Comment: No: Do not add to previou s draw Performed By: #### 0 0071, 46087, 90048 ####[facility].[address] Urea nitrogen mass conc 18 mg/dL Normal 7-25 [facility] Comment on above: Order Comment: No: Do not add to previou s draw Performed By: #### 0 0071, 25129, 10388 ####[facility].[address] CBC W/DIFFon 12-22-2017 ABS BASOPHILS 0.1 10*3/uL Normal 0.0-0.2 [facility] Comment on above: Performed By: #### 87676 ####[facility].[address] ABS IMM GRANS 0.0 10*3/uL Normal 0.0-0.2 [facility] Comment on above: Performed By: #### 51460 ####[facility] ABS NEUTROPHILS 5.7 10*3/uL Normal 1.6-7.6 [facility] Comment on above: Performed By: #### 47123 ####[facility] Basophils Auto #/vol (Bld) 0.4 % Normal 0.0-1.0 [facility] Comment on above: Performed By: #### 88122 ####[facility].[address] Eosinophils Auto #/vol (Bld) 0.2 10*3/uL Normal 0.0-0.5 [facility] Comment on above: Performed By: #### 89567 ####[facility] Eosinophils/100 WBC Auto (Bld) 1.3 % Normal 0.0-6.0 [facility] Comment on above: Performed By: #### 25202 ####[facility] Erythrocyte distribution width Auto Ratio (RBC) 13.3 % Normal 11.5-15.0 [facility] Comment on above: Performed By: #### 46688 ####[facility] Hematocrit Auto Volume Fraction (Bld) 46.3 % Normal 39.0-50.0 [facility] Comment on above: Performed By: #### 22040 ####[facility] Hemoglobin mass conc (Bld) 15.6 g/dL Normal 13.0-17.0 [facility] Comment on above: Performed By: #### 42520 ####[facility] IMMATURE GRANS 0.3 % Normal 0.0-1.0 [facility] Comment on above: Performed By: #### 44421 ####[facility] Lymphocytes Auto #/vol (Bld) 4.6 10*3/uL High 1.2-4.0 [facility] Comment on above: Performed By: #### 59483 ####[facility] Lymphocytes/100 WBC Auto (Bld) 39.8 % Normal 20.0-45.0 [facility] Comment on above: Performed By: #### 17787 ####[place] [address] MCH Auto Entitic mass (RBC) 27.8 pg Normal 27.0-33.0 [facility] Comment on above: Performed By: #### 20916 ####[address] MCHC Auto mass conc (RBC) 33.7 g/dL Normal 32.0-35.0 [facility] Comment on above: Performed By: #### 43085 ####[place] [address] MCV Auto Entitic volume (RBC) 82.5 fL Normal 82.0-98.0 [facility] Comment on above: Performed By: #### 51001 ####[place] [address] Monocytes Auto #/vol (Bld) 1.0 10*3/uL Normal 0.1-1.0 [facility] Comment on above: Performed By: #### 11268 ####[address] MONOS 8.7 % Normal 5.0-12.0 [facility] Comment on above: Performed By: #### 00911 ####[facility] [place] [address], [facility] Neutrophils/100 WBC Auto (Bld) 49.5 % Normal 40.0-72.0 [facility] Comment on above: Performed By: #### 26992 ####[facility].[address] Nucleated RBC/100 WBC Ratio (Bld) 0 % Normal 0-0 [facility] Comment on above: Performed By: #### 26129 ####[facility] [address] PLAT CNT 244 10*3/uL Normal 150-400 [facility] Comment on above: Performed By: #### 73871 ####[place] [address] RBC Auto #/vol (Bld) 5.61 10*6/uL Normal 4.20-5.70 [facility] Comment on above: Performed By: #### 73288 ####[place] [address] WBC Auto #/vol (Bld) 11.61 10*3/uL High 4.00-10.60 [facility] Comment on above: Performed By: #### [address]36 ####[address] Cardiovascular Lab Reporton 12-22-2017 Cardiovascular Lab Report [facility]: [id number] Physician: Scotty Arguelles,Department of M.D.Medicine Service Date: 12/22/2017Division of Birthdate: 1Cardiology Room #: 3CD [id number] CardiovascularServicesJennifer [place] [address]Phone Fax Cardiovascular Laboratory ReportFINAL IMPRESSIONS:1. Patent stent [...] angiography, bilateral selective coronaryangiography, placement of a 6-Russian MynxGrip closure device.METHODS: After risks, benefits, and alternatives were explained, writteninformed consent was obtained. The patient was prepped and draped in usualsterile fashion over both groins. Using 1% lidocaine solution, localinfiltration anesthesia was achieved. Using modified Seldinger technique,access to the right common femoral artery was obtained. A 6-Russian 11 cmsheath was inserted. Baseline femoral angiography was performed.Bilateral selective coronary angiography was performed using JL4 and [id number]. After reviewing the images, it was elected to conclude theprocedure.A 6-Russian MynxGrip closure device was deployed per protocol achievingoptimal hemostasis. Overall, the patient tolerated the procedure well.There were no overt complications. He was to be transferred to the [facility] in stable condition.FINDINGS: Hemodynamics:AO: 136/73 (98).LEFT VENTRICULOGRAPHY: [...] 12/22/2017/01:46 P/Scotty Arguelles M.D.Date Trans: 12/22/2017 04:28 P/mmoDN_JN:[id number]: Julio Patton D.O. [address] [facility] [address] [facility] [address] Doris Pérez D.O. [address] [facility] [address] Normal [facility] HEMOGLOBIN A1Con 12-22-2017 Glucose mass conc 160 mg/dL High 70-126 [facility] Comment on above: Order Comment: Yes: Add to Previous draw if able Performed By: #### 4 6447 ####[facility] [address] Hemoglobin A1c/Hemoglobin. total mass fraction (Bld) 7.2 % High 4.0-6.0 [facility] Comment on above: Order Comment: Yes: Add to Previous draw if able Performed By: #### 4 6447 ####[facility] [address] MAGNESIUM BLOODon 12-22-2017 Magnesium mass conc 2.4 mg/dL Normal 1.9-2.7 [facility] Comment on above: Order Comment: Yes: Add to Previous draw if able Performed By: #### 3 5200, 59349 ####[facility] [address] PROTHROMBIN TIMEon 8 INR Coag RelTime (PPP) 1.07 {INR} Normal 0.91-1.16 [facility] Comment on above: Result Comment: ACCCP RECOMMENDED INR FO R WARFARIN THERAPY CONDITION INRPROPHYLAXIS OF VENOUS THROMBOSIS 2-3(HIGH-RISK SURGERY)TREATMENT OF VENOUS THROMBOSIS 2-3TREATMENT OF PULMONARY EMBOLISM 2-3PREVENTION OF SYSTEMIC EMBOLISM: 2-3 ACUTE MYOCARDIAL INFARCTION TISSUE HEART VALVES VALVULAR HEART DISEASE ATRIAL FIBRILLATION RECURRENT SYSTEMIC EMBOLISMMECHANICAL HEART VALVE 2.5-3.5 FROM: ORAL ANTICOAGULANTS. MECHANISM OF ACTION, CLINICALEFFECTIVENESS, AND OPTIMAL THERAPEUTIC RANGE. [id number]. Performed By: #### 5 6101, 10734 ####[facility] [address] Prothrombin time (PT) Coag time (PPP) 13.9 s Normal 12.3-14.8 [facility] Comment on above: Result Comment: ALL RESULTS MUST BE INTE RPRETED WITH RESPECT TO BLOOD DRAWING ARTIFACTOR DILUTION ERROR OF ANTICOAGULANT AT THE TIME OF SAMPLING. Performed By: #### 5 6101, 92882 ####[facility] [address] TROPONIN-Ion 12-22-2017 Troponin I.cardiac mass conc 0.01 ng/mL Normal 0.00-0.04 [facility] Comment on above: Order Comment: No: Do not add to previou s draw Result Comment: REFE RENCE RANGES: 0.00 - 0.04 ng/ml NORMAL 0.05 - 0.50 ng/ml INDETERMINATE > 0.50 ng/ml CONSISTENT WITH AN M.I. Performed By: #### 3 5200, 78917 ####[facility].[address] Troponin I.cardiac mass conc 0.01 ng/mL Normal 0.00-0.04 [facility] Comment on above: Order Comment: No: Do not add to previou s draw Result Comment: REFE RENCE RANGES: 0.00 - 0.04 ng/ml NORMAL 0.05 - 0.50 ng/ml INDETERMINATE > 0.50 ng/ml CONSISTENT WITH AN M.I. Performed By: #### 0 0071, 13077, 55590 ####[facility].[address] TSH WITH REFLEXon 12-22-2017 Thyrotropin Qn 2.93 MICRO-IU/ML Normal 0.34-5.60 [facility] Comment on above: Performed By: #### 15148, 17894, 40971 # ###[place] [address] [facility].[address] UFH HEPARIN ASSAYon 12-23-19 18 UNFRACTIONATED HEPARIN 0.49 IU/mL Normal 0.30-0.70 [facility] Comment on above: Result Comment: Rivaroxaban and Apixaban will interfere with the anti Xa assay used tomonitor UFH and LMWH. Performed By: #### 0 0071, 41150, 79580 ####[place] [address] [facility].[address] UNFRACTIONATED HEPARIN 0.69 IU/mL Normal 0.30-0.70 [facility] Comment on above: Result Comment: Rivaroxaban and Apixaban will interfere with the anti Xa assay used tomonitor UFH and LMWH. Performed By: #### 3 0477 ####[place] [address] Vital Signs Date Time Vital Sign Value Performing Clinician Facility 08-29-2024 11:23-0500 Body height 175.26 cm [facility] 08-29-2024 11:23-0500 Body mass index (BMI) [Ratio] 35.2 kg/m2 [facility] 08-29-2024 11:23-0500 Body temperature 97.6 [degF] [facility] 08-29-2024 11:23-0500 Body weight 108.06 kg [facility] 08-29-2024 11:23-0500 Diastolic blood pressure 75 mm[Hg] [facility] 08-29-2024 11:23-0500 Heart rate 84 /min [facility] 08-29-2024 11:23-0500 Respiratory rate 18 /min [facility] 08-29-2024 11:23-0500 SaO2% (BldA) [Mass fraction] 95 % [facility] 08-29-2024 11:23-0500 Systolic blood pressure 117 mm[Hg] [facility] 05-16-2024 14:01-0500 Body height 173.4 cm Korin Petznick DO Work Phone: [facility] 05-16-2024 14:01-0500 Body mass index (BMI) [Ratio] 36.07 kg/m2 Korin Petznick DO Work Phone: [facility] 05-16-2024 14:01-0500 Body temperature 97.7 [degF] Korin Petznick DO Work Phone: [facility] 05-16-2024 14:01-0500 Body weight 108.41 kg Korin Petznick DO Work Phone: [facility] 05-16-2024 14:01-0500 Diastolic blood pressure 64 mm[Hg] Korin Petznick DO Work Phone: [facility] 05-16-2024 14:01-0500 Heart rate 79 /min Korin Petznick DO Work Phone: [facility] 05-16-2024 14:01-0500 SaO2% (BldA) [Mass fraction] 97 % Korin Petznick DO Work Phone: [facility] 05-16-2024 14:01-0500 Systolic blood pressure 122 mm[Hg] Korin Petznick DO Work Phone: [facility] 03-28-2024 10:39-0400 Body height 175.26 cm [facility] 03-28-2024 10:39-0400 Body mass index (BMI) [Ratio] 34.6 kg/m2 [facility] 03-28-2024 10:39-0400 Body weight 106.31 kg [facility] 03-28-2024 10:39-0400 Diastolic blood pressure 79 mm[Hg] [facility] 03-28-2024 10:39-0400 Heart rate 81 /min [facility] 03-28-2024 10:39-0400 Respiratory rate 12 /min [facility] 03-28-2024 10:39-0400 Systolic blood pressure 142 mm[Hg] [facility] 11-26-2023 09:21-0400 Diastolic blood pressure 90 mm[Hg] Oliver Fitzgerald MD Work Phone: [facility] 11-26-2023 09:21-0400 Heart rate 76 /min Oliver Fitzgerald MD Work Phone: [facility] 11-26-2023 09:21-0400 Systolic blood pressure 143 mm[Hg] Oliver Fitzgerald MD Work Phone: [facility] 11-26-2023 09:20-0400 Body mass index (BMI) [Ratio] 33.76 kg/m2 Oliver Fitzgerald MD Work Phone: [facility] 11-26-2023 09:20-0400 Body weight 103.69 kg Oliver Fitzgerald MD Work Phone: [facility] 11-26-2023 09:20-0400 SaO2% (BldA) [Mass fraction] 98 % Oliver Fitzgerald MD Work Phone: [facility] 10-22-2023 09:21-0400 Body height 175.3 cm Oliver Fitzgerald MD Work Phone: [facility] 10-22-2023 09:21-0400 Body mass index (BMI) [Ratio] 34.7 kg/m2 Oliver Fitzgerald MD Work Phone: [facility] 10-22-2023 09:21-0400 Body weight 106.59 kg Oliver Fitzgerald MD Work Phone: [facility] 10-22-2023 09:21-0400 Diastolic blood pressure 88 mm[Hg] Oliver Fitzgerald MD Work Phone: [facility] 10-22-2023 09:21-0400 Heart rate 79 /min Oliver Fitzgerald MD Work Phone: [facility] 10-22-2023 09:21-0400 Systolic blood pressure 143 mm[Hg] Oliver Fitzgerald MD Work Phone: [facility] 09-23-2023 11:07-0400 Body height 175.26 cm [facility] 09-23-2023 11:07-0400 Body mass index (BMI) [Ratio] 35.3 kg/m2 [facility] 09-23-2023 11:07-0400 Body weight 108.46 kg [facility] 09-23-2023 11:07-0400 Diastolic blood pressure 81 mm[Hg] [facility] 09-23-2023 11:07-0400 Heart rate 82 /min [facility] 09-23-2023 11:07-0400 Respiratory rate 16 /min [facility] 09-23-2023 11:07-0400 Systolic blood pressure 141 mm[Hg] [facility] 03-25-2023 11:00-0400 Body height 175.26 cm Julio Ball Other [facility] [employer] Other 03-25-2023 11:00-0400 Body mass index (BMI) [Ratio] 34.64 kg/m2 Julio Ball Other [employer] [facility] [employer] Other 03-25-2023 11:00-0400 Body weight 106.41 kg Julio Ball Other [employer] [facility] [employer] Other 03-25-2023 11:00-0400 Diastolic blood pressure 85 mm[Hg] Julio Patton Other [employer] Other 03-25-2023 11:00-0400 Respiratory rate 12 /min Julio Patton Other [employer] Other 03-25-2023 11:00-0400 Systolic blood pressure 142 mm[Hg] Julio Patton Other [employer] Other Encounters Encounter Date Encounter Type Care Provider Facility Start: 08-29-2024 End: 08-29-2024 ambulatory [facility] Work Phone: Start: 08-29-2024 End: 08-29-2024 Patient encounter procedure [facility] Work Phone: Start: 06-07-2024 End: 06-07-2024 ambulatory [facility] Start: 05-16-2024 End: 05-16-2024 Office outpatient visit 25 minutes Korin Mercedes DO Work Phone: [facility] [place] [facility] 230 Comment on above: Class 2 severe obesi ty due to excess calories with serious comorbidity and body mass index (BMI) of 36.0 to 36.9 in adult (CMS/HCC) (Primary Dx); Type 2 diabetes mellitus with other circulatory complications ([facility]); Type 2 diabetes mellitus with stage 3a chronic kidney disease, with long-term current use of insulin (HCC) ([facility]) Start: 05-16-2024 End: 05-16-2024 ambulatory KORIN MERCEDES Not Available Start: 03-28-2024 End: 03-28-2024 ambulatory [facility] Work Phone: Start: 03-28-2024 End: 03-28-2024 Patient encounter procedure [facility] Work Phone: Start: 03-26-2024 Patient encounter procedure [facility] Start: 12-15-2023 End: 12-15-2023 ambulatory CHR[facility] Start: 11-26-2023 End: 11-26-2023 Office outpatient visit 15 minutes Oliver Fitzgerald MD Work Phone: [facility] Comment on above: Swelling of both low er extremities (Primary Dx) Start: 11-12-2023 End: 11-12-2023 ambulatory KORIN MERCEDES Not Available Start: 10-22-2023 End: 10-22-2023 ambulatory M[facility] Start: 10-22-2023 End: 10-22-2023 Office outpatient visit 15 minutes Oliver Fitzgerald MD Work Phone: [facility] Comment on above: Severe claudication (CMS-HCC) (Primary Dx); Swelling of both lower extremities Start: 09-23-2023 End: 09-23-2023 ambulatory [facility] Work Phone: Start: 09-23-2023 End: 09-23-2023 Patient encounter procedure [facility] Work Phone: Start: 05-27-2023 End: 05-27-2023 ambulatory Julio Ball Other [employer] Other Start: 05-27-2023 Telephone encounter Julio Ball [facility] Start: 04-28-2023 End: 04-28-2023 ambulatory Julio Ball Other [employer] Other Start: 04-28-2023 Telephone encounter Julio Ball [facility] Start: 04-27-2023 End: 04-27-2023 ambulatory Julio Ball Other [employer] Other Start: 04-27-2023 Telephone encounter Julio Ball [facility] Start: 04-20-2023 End: 04-20-2023 ambulatory Julio Ball Other [employer] Other Start: 04-20-2023 Telephone encounter Julio Ball [facility] Start: 03-27-2023 End: 03-27-2023 ambulatory Julio Patton Other [employer] Other Start: 03-27-2023 Telephone encounter uJlio Patton [facility] Start: 03-26-2023 End: 03-26-2023 ambulatory Julio Patton Other [employer] Other Start: 03-26-2023 Telephone encounter Julio RESENDIZ [facility] Start: 03-25-2023 End: 03-25-2023 ambulatory Julio Patton Other [employer] Other Start: 03-25-2023 Patient encounter procedure Julio Patton [facility] Start: 02-16-2023 End: 02-16-2023 ambulatory Julio Patton Other [employer] Other Start: 02-16-2023 Telephone encounter Julio Patton [facility] Start: 12-03-2022 End: 12-03-2022 ambulatory Julio Patton Other [employer] Other Start: 12-03-2022 Telephone encounter Julio RESENDIZ [facility] Start: 10-24-2022 End: 10-25-2022 ambulatory CRHIS ANDUJAR Facility:[facility] Start: 09-19-2022 End: 09-19-2022 ambulatory Julio Patton Other [employer] Other Start: 09-19-2022 Nursing evaluation o f patient and report Julio Patton [facility] Start: 09-15-2022 End: 09-16-2022 ambulatory [...] 03-26-2021 Adult health examination Lei Patton Other [employer] Other Start: 06-04-2018 End: 06-06-2018 Evaluation and management of inpatient JULIO PATTON Facility:[facility] Start: 12-22-2017 End: 12-23-2017 Evaluation and management of inpatient TAMI SQUIRES Facility:[facility] Procedures Date Procedure Procedure Detail Performing Clinician Start: 05-16-2024 Hemoglobin glycosylated a1c Korin Mercedes DO Work Phone: Start: 06-04-2018 Mandaen of Cardi ac Rhythm, Single GUNNAR WALLACE Start: 12-22-2017 FLUOROSCOPY OF MULTI PLE CORONARY ARTERIES USING OTH CONTRAST SCOTTY ARGUELLES Start: 12-22-2017 Mandaen of Cardi ac Rhythm, Single DENI DIPESH [...] [facility] [address] [place] [address] Oliver Fitzgerald MD [address], [address] [address] [facility] Start: 11-25-2024 Adult BMI Screening Adult BMI Screen ing [facility] Start: 11-25-2024 Tobacco Screening Tobacco Screening [facility] Start: 10-21-2024 Adult BMI Screening Adult BMI Screen ing [facility] Start: 10-21-2024 Tobacco Screening Tobacco Screening [facility] Start: 09-15-2024 End: 09-15-2024 Patient encounter procedure 09/15/2024 2:15 PM EDT Office Visit [facility] [address] [facility] [address] [place] [id number] Korin Mercedes DO [address] [facility] [address] [place] [address] [facility] 230 Start: 08-16-2024 Hemoglobin A1c measurement Diabetes: Hemoglobin A1C [facility] Start: 02-28-2024 Influenza vaccination Influenza Vacc ine [facility] Start: 11-05-2023 End: 11-05-2023 Patient encounter procedure 11/05/2023 1:20 PM EDT Office Visit [facility] [address] [place] [address] Oliver Fitzgerald MD [address], [address] [address] [facility] Start: 10-22-2023 End: 10-21-2024 US.doppler Extremity arteries - bilateral for physiologic artery study Vas art doppler lwr bilat mult lev/PVR Vascular Ultrasound Routine Severe claudication ([facility]) Expected: 10/22/2023, Expires: 10/21/2024 [facility] Work Phone: Comment on above: Expected: 10/22/2023 , Expires: 10/21/2024 Start: 05-02-2023 Urine screening for protein Diabetes: Urine Protein Screening [facility] Start: 04-04-2023 DTaP,Tdap and Td Vac cines (2 - Td or Tdap) DTaP,Tdap and Td Vaccines (2 - Td or Tdap) [facility] Start: 12-02-2022 ambulatory Ambulatory Facility:[facility] 1 Start: 11-14-2014 Administration of varicella zoster vaccine Zoster (Shingles) Vaccine (2 of 3) [facility] Start: 2005 Fall Risk Screening Fall Risk Screen ing [facility] Start: 1958 Adult BMI Follow Up Plan Adult BMI Follow Up Plan [facility] Start: 1952 Depression Screening Depression Scre ening [facility] Start: 1950 Glaucoma screening Diabetes: R etinopathy Screening [facility] Start: 1940 Medicare Annual Well ness (AWV) Medicare Annual Wellness (AWV) [facility] Start: 1940 Medicare Annual Well ness Visit Medicare Annual Wellness Visit [facility] Comprehensive metabo lic 2000 panel - Serum or Plasma [facility] Immunizations Immunization Date Immunization Notes Care Provider Fa aure 03-28-2024 influenza, high dose seasonal, preservative-free [facility] 03-25-2023 influenza virus vaccine, unspecified formulation [facility] 03-25-2023 influenza, high dose seasonal, preservative-free Julio Patton Other [employer] Other 05-02-2022 COVID-19 Pfizer (Pediatric) Julio Patton Other [facility] 05-02-2022 influenza virus vaccine, split virus (incl. purified surface antigen) Julio Patton Other [employer] Other 05-02-2022 influenza virus vaccine, unspecified formulation [facility] 05-02-2022 Influenza, High-dose Seasonal, Quadrivalent, Preservative Free Korin Mercedes DO Work Phone: [facility] 09-26-2021 COVID-19 Vaccine Pfi zer - Documentation Purposes Only Julio Patton Other [facility] 03-22-2021 influenza virus vaccine, split virus (incl. purified surface antigen) Julio Patton Other [employer] Other 03-22-2021 influenza virus vaccine, unspecified formulation [facility] 03-12-2020 influenza virus vaccine, split virus (incl. purified surface antigen) Julio Patton Other [employer] Other 03-12-2020 influenza virus vaccine, unspecified formulation [facility] 04-01-2019 influenza virus vaccine, split virus (incl. purified surface antigen) Julio Patton Other [facility] [employer] Other 04-01-2019 influenza virus vaccine, unspecified formulation [facility] 03-09-2018 influenza virus vaccine, split virus (incl. purified surface antigen) Julio Patton Other [facility] [employer] Other 03-09-2018 influenza virus vaccine, unspecified formulation [facility] 03-09-2018 Seasonal trivalent influenza vaccine, adjuvanted, preservative free Korin Petznick DO Work Phone: [facility] 03-31-2017 influenza virus vaccine, split virus (incl. purified surface antigen) Julio Patton Other [facility] [employer] Other 03-31-2017 influenza virus vaccine, unspecified formulation [facility] 03-31-2017 influenza, high dose seasonal, preservative-free Korin Petznick DO Work Phone: [facility] 04-17-2016 influenza virus vaccine, split virus (incl. purified surface antigen) Julio Patton Other [employer] Other 04-17-2016 influenza virus vaccine, unspecified formulation [facility] 04-17-2016 influenza, high dose seasonal, preservative-free Korin Petznick DO Work Phone: [facility] 11-05-2015 pneumococcal conjuga te vaccine, 13 valent Julio Patton Other [facility] 09-19-2014 zoster vaccine, live Korin Sauloick DO Work Phone: [facility] 09-19-2014 zoster vaccine, unspecified formulation Oliver Fitzgerald MD Work Phone: [employer] 04-04-2013 tetanus and diphther ia toxoids, adsorbed, preservative free, for adult use (5 Lf of tetanus toxoid and 2 Lf of diphtheria toxoid) Julio Patton Other [facility] 11-10-2012 pneumococcal polysaccharide vaccine, 23 valent Julio Patton Other [facility] Payers Date Payer Category Payer Medicaid AETNA MEDICARE A DVANTAGE [id number] 2021 Medicare AETNA MEDICARE A ETNA MEDICARE PLAN (PPO) [id number] 2021-Present [phone] [address] [place] [address] [id number] 1959 Medicare [id number] 1940 Unknown [id number] 2.16.840.1.046876.3.579.2. 647 1940 Unknown [id number] 2.16.840.1.004333.3.579.2. 647 1940 Unknown [id number] 2.16.840.1.159807.3.579.2. 593 1940 Unknown [id number] 2.16.840.1.470630.3.579.2. 593 1940 Unknown [id number] 2.16.840.1.323117.3.579.2. 593 1940 Unknown [id number] 2.16.840.1.052769.3.579.2. 593 1940 Unknown [id number] 2.16.840.1.827242.3.579.2. 593 1940 Unknown [id number] 2.16.840.1.018276.3.579.2. 593 1940 Unknown [id number] 2.16.840.1.045595.3.579.2. 593 1940 Unknown [id number] 2.16.840.1.574201.3.579.2. 593 1940 Unknown [id number] 2.16.840.1.674995.3.579.2. 593 1940 Unknown [id number] 2.16.840.1.999251.3.579.2. 593 1940 Unknown [id number] 2.16.840.1.001498.3.579.2. 593 1940 Unknown [id number] 2.16.840.1.519997.3.579.2. 593 1940 Unknown [id number] 2.16.840.1.460650.3.579.2. 593 1940 Unknown [id number] 2.16.840.1.636865.3.579.2. 593 1940 Unknown [id number] 2.16.840.1.390090.3.579.2. 593 1940 Unknown [id number] 2.16.840.1.697670.3.579.2. 1259 1940 Unknown [id number] 2.16.840.1.828429.3.579.2. 1259 Medicare [id number] Private Health Insurance [id number] Self-pay Self Pay [id number] Social History Date Type Detail Facility Unknown if ever smoked [employer] Other Start: 07-12-2020 End: 11-12-2023 Sex Assigned At [facility] [employer] Other Start: 09-23-2023 End: 09-23-2023 Tobacco smoking status HIIS Never smoked tobacco (finding) [facility] Start: 1940 Sex Assigned At Male [facility] Start: 11-12-2023 Tobacco smoking status [facility] Ex-smoker [facility] History of tobacco use Current smoker [facility] History of tobacco use Cigarette Smoker [facility] Start: 11-12-2023 Tobacco use and exposure Smokeless tobacco non-user [facility] Start: 05-16-2024 Alcoholic beverage intake Lifetime non-drinker (finding) [facility] Start: 07-12-2020 End: 11-12-2023 History of Social function [facility] How often to you hav e a drink containing alcohol? Never [facility] How many standard drinks containing alcohol do you have on a typical day? Patient does not drink [facility] Start: 1940 Sex assigned at Not on file [facility] Start: 04-09-2023 Tobacco smoking status [facility] Tobacco smoking consumption unknown [facility] Start: 10-22-2023 End: 11-26-2023 Alcoholic beverage intake Defer [facility] Start: 08-29-2024 Sex Male (finding) [facility] Medical Equipment Procedure Code Equipment Code Equipment Origin al Text Equipment Identifier Dates Inject 1 each un jory the skin in the morning and 1 each at noon and 1 each in the evening and 1 each before bedtime. [id number] Start: 04-20-2023 Clinical Notes 06-01-2018 to 06-07-2024 Korin Mccabe Jesus, DO - 05/16/2024 8:46 PM Terry Mercedes, DO - 05/16/2024 2:00 PM Gus Fitzgerald MD - 11/26/2023 9:40 AM EDDenise Fitzgerald MD - 10/22/2023 9:20 AM EDT Note Date & Type Note Facility 06-07-2024 Note MD Electrophysiology Consult Note Reason for visit: follow up , s/p atrial lead dislodgment with extraction of old lead and reimplantation of new lead 07/08/2022 , s/p DCCV at [facility] for afib 06/07/24 Denies chest pain, palpitations, [...] in the atrial channel. he does have nightmute conduction and management of the device he had significant sinus node dysfunction with sinus bradycardia in the 40s with nightmute QRS. however he does have AV Wenckebach [...] on sotalol and tolerating medication well - [facility] ------- 4/18/23 HPI: Patient here for [...] medical history of Afib was admitted to [facility] and was noted to have bradycardia. initial plans for cardioversion was aborted and he underwent a dual-chamber Biotronik pacemaker implant by Dr. Armenta on 05/06/22. subsequently he was advised to have a cardioversion done as an outpatient. today presented to [facility] for cardioversion and at that time [...] Tobacco Use: Medium Risk (05/16/2024) Received from [facility] [employer] Patient History Smoking Tobacco Use: Former Smokeless Tobacco Use: Never Passive Exposure: Not on file Alcohol Use: Not At Risk (11/12/2023) Received from [place], [facility] [employer] AUDIT-C Frequency of Alcohol Consumption: Never Average Number of Drinks: Patient does not drink Frequency of Binge Drinking: Never Financial Resource Strain: Not on file Food Insecurity: No Food Insecurity (11/26/2023) Received from [employer] Hunger Screening Within the past 12 months [...] on file Intimate Partner Violence: Unknown (08/20/2023) MD Safety & Environment Fear of Current or Ex-Partner: Not on file Emotionally Abused: Not on file Physically Abused: Not on file Sexually Abused: Not on file Physically or Sexually Abused: Not on file Depression: Not at risk (05/16/2024) Received from [facility] PHQ-2 Patient Health Questionnaire-2 Score: [...] ([employer], Fiasp) 100 (more content not included)... [facility] 05-16-2024 History of Present illness Narrative Associated Problem(s): Type 2 diabetes mellitus with other circulatory complications ([facility]) During the appointment today all pertinent labs, [...] a couple times a day in the fci. States he doesn't care about eating healthy. He only eats out about 3-4 days a week. Usually gets a burger from [employer]. Diet: none Drinks: water, tea with milk and black coffee Exercise: none Hypoglycemia: none SUBJECTIVE: PROBLEM LIST SOCIAL ALLERGIES: Patient Active Problem List Diagnosis Type 2 diabetes mellitus with stage 3a chronic kidney disease, with long-term current use of insulin (HCC) ([facility]) Class 2 severe obesity due to excess calories with serious comorbidity and body mass index (BMI) of 36.0 to 36.9 in adult ([facility]) Stage 3a chronic kidney disease (HCC) (CMS/HCC) Neuropathy Myocardial infarction (CMS/HCC) Essential hypertension (CMS/HCC) Elevated cholesterol (CMS/HCC) Coronary artery disease involving nightmute coronary artery of 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 angina pectoris ([facility]/HCC) Benign prostatic hyperplasia with lower urinary tract symptoms Paroxysmal atrial fibrillation ([facility]/HCC) Type 2 diabetes mellitus with other circulatory complications ([facility]) Social History Tobacco Use Smoking status: Former [...] with long-term current use of insulin (HCC) ([facility]) Relevant Orders POCT glycosylated hemoglobin (Hb A1C) docked device (Completed) Class 2 severe obesity due to excess calories with serious comorbidity and body mass index (BMI) of 36.0 to 36.9 in adult ([facility]) - Primary Type 2 diabetes mellitus with other circulatory complications ([facility]) During the appointment today all pertinent labs, [...] the patient today. documented in this encounter [facility] 11-26-2023 History of Present illness [...] History: Past Medical History: Diagnosis Date A-fib ([facility]) Diabetes mellitus with diabetic polyneuropathy, without long-term current use of insulin ([facility]) Ingrown nail Paronychia of toenail, left PVD (peripheral vascular disease) ([facility]) Stroke ([facility]) Past Surgical History: No past surgical history [...] Interpersonal Safety: Unknown (08/20/2023) Received from [facility] [place] Safety & Environment Fear of Current [...] Oliver Fitzgerald MD, JANINE, RPVI, FSVS, FACS [facility] [employer] This note was created with the assistance of a speech recognition program. While intending to generate a timely document that accurately reflects the content of the visit, no guarantee can be provided that every grammatical or spelling mistake has been or will be identified or corrected. Thank you for your understanding. documented in this encounter [facility] 10-22-2023 Note Patient here for 6 m [...] All other systems reviewed and are negative. [facility] 10-22-2023 Note Cardiovascular Medic [facility] SUBJECTIVE Chief Complaint Patient presents with Atrial Fibrillation Congestive Heart Failure Coronary Artery Disease Hypertension Yajaira Barroso is a 83 y.o. male here for follow-up. HPI Reason for visit: follow up , s/p atrial lead dislodgment with extraction of old lead and reimplantation of new lead 07/08/2022 , s/p DCCV at [facility] for afib 11/202210/22/23 He denies any changes since last seen. His medications have been adjusted. He has LE edema, this is stable, lasix helps. Denies c/o CP, dyspnea, orthopnea, PND, dizziness/LH, palpitations, syncope. He had some episodes of a.fib on device check, he denies sx's. 05/25/23: Here for 6 month follow up Doing well without complaints of CP, SOB, ERDDY, le edema He is pending device check [...] in the atrial channel. he does have nightmute conduction and management of the device he had significant sinus node dysfunction with sinus bradycardia in the 40s with nightmute QRS. however he does have AV Wenckebach [...] medical history of Afib was admitted to [facility] and was noted to have bradycardia. initial plans for cardioversion was aborted and he underwent a dual-chamber Biotronik pacemaker implant by Dr. Armenta on 05/06/22. subsequently he was advised to have a cardioversion done as an outpatient. today presented to [facility] for cardioversion and at that time I performed a device check which revealed that he had underlying ventricular pacing, but his atrial lead was sensing ventricular signals. a subsequent chest x-ray revealed that the atrial lead was displaced. the plan was made to revise the atrial lead. Patient Active Problem List Diagnosis Coronary artery disease involving nightmute coronary artery of 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 angina pectoris Paroxysmal atrial fibrillation ([facility]) Status post percutaneous transluminal coronary angioplasty Essential hypertension Symptomatic bradycardia AICD lead displacement Acute on chronic heart failure with preserved ejection fraction ([facility]) Arthritis Myocardial infarction ([facility]) Neuropathy Benign prostatic hyperplasia with lower urinary tract symptoms Change in bowel habits Chronic kidney disease Chronic venous insufficiency Elevated cholesterol care home (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 insulin ([facility]) Severe claudication ([facility]) Severe obesity with body mass index (BMI) of 35.0 to 35.9 and comorbidity ([facility]) Stage 3a chronic kidney disease ([facility]) Swelling of both lower extremities Type 2 diabetes mellitus with hyperglycemia ([facility]) Type 2 diabetes mellitus with stage 3a chronic kidney disease, with long-term current use of insulin ([facility]) Weight loss Past Medical History: Diagnosis Date Atrial fibrillation ([facility]) Coronary artery disease Diabetes mellitus ([facility]) Hypertension No family history on file. Social [...] in the morni (more content not included)... [facility] 10-22-2023 Evaluation + Plan note Associated Problem(s): Swelling of both lower extremities We will prescribe compression stockings after making sure he does not have severe arterial occlusive disease. [facility] 10-22-2023 Miscellaneous Notes Associated Problem(s): Swelling of both lower extremities We will prescribe compression stockings after making sure he does not have severe arterial occlusive disease. Associated Problem(s): Severe claudication (CMS-HCC) We will get a PVR and follow-up after the PVR. documented in this encounter [facility] 10-22-2023 Evaluation + Plan note Associated Problem(s): Severe claudication (CMS-HCC) We will get a PVR and follow-up after the PVR. [facility] 10-22-2023 History of Present illness Narrative Images [...] History: Past Medical History: Diagnosis Date A-fib ([facility]) Diabetes mellitus with diabetic polyneuropathy, without long-term current use of insulin ([facility]) Ingrown nail Paronychia of toenail, left PVD (peripheral vascular disease) ([facility]) Stroke ([facility]) Past Surgical History: No past surgical history [...] Interpersonal Safety: Unknown (08/20/2023) Received from [facility] Safety & Environment Fear of Current or [...] Oliver Fitzgerald MD, JANINE, RPVI, FSVS, FACS [facility] This note was created with the assistance of a speech recognition program. While intending to generate a timely document that accurately reflects the content of the visit, no guarantee can be provided that every grammatical or spelling mistake has been or will be identified or corrected. Thank you for your understanding. documented in this encounter [facility] 03-26-2023 Evaluation note Encounter Date Diagnosis Assessment Notes Feb, Stage 3a chronic kidney disease (ICD-10 - N18.31) [facility] Other 09-27-2023 Evaluation note* Encounter Date Diagnosis [...] (prostate specific antigen) (ICD-10 - Z12.5) Feb, care home (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 insulin (ICD-10 - Z79.4) Feb, High risk medication use (ICD-10 - Z79.899) Dec, Paroxysmal atrial fibrillation (ICD-10 - I48.0) Paroxysmal atrial fibrillation This patient is in NSR or rate controlled. This patient is anticoagulated to prevent thromboembolic events. They are maintaining regular scheduled appts with their ethnographic materials conservator. [facility] Other 03-24-2023 Evaluation note* Encounter Date Diagnosis Assessment Notes Treatment Notes Treatment Clinical Notes Aug, Dysuria (ICD-10 - R30.0) [facility] Other 06-06-2022 NotePROCEDURE: XR HIP LT 2 3V W PELVIS COMPARISON: None. HISTORY: Pain of left hip joint FINDINGS: BONES:No acute fracture or dislocation. Minimal bilateral hip osteoarthropathy. SOFT TISSUES:Negative. No visible soft tissue swelling. EFFUSION:None visible. OTHER: Electronic device projects over the right hemipelvis IMPRESSION: No acute abnormality Electronically authenticated by: NICOLE THOMAS Date: 2021-12-02 20:59[id number] History general Narrative - Reported* Type Description Date Surgical History Problem Title : Othe r Surgery, Problem Comment : [facility] PTCA/stent RCA 2002 [facility] PTCA/PABLITO RCA 2014[facility] 11/2017Colonoscopy 01/2018, Problem Status : Resolved, Surgical History Problem Title : past surgical history reviewed, Problem Description : past surgical history reviewed, Problem Comment : reviewed - no changes required, Problem Status : Resolved, Surgical History Problem Title : surg ical procedures, hx of, Problem Description : surgical procedures, hx of, Problem Comment : [facility] PTCA/stent RCA 2002 [facility] PTCA/PABLITO RCA 2014 [facility] 11/2017 Colonoscopy 01/2018, Problem Status : Active, Surgical History Problem Title : surg ical procedures, hx of, Problem Description : surgical procedures, hx of, Problem Comment : [facility] PTCA/stent RCA 2002 [facility] PTCA/PABLITO RCA 2014 [facility] 11/2017, Problem Status : Resolved, Surgical History Problem Title : surg ical procedures, hx of, Problem Description : surgical procedures, hx of, Problem Comment : [facility] PTCA/stent RCA 2002 [facility] PTCA/PABLITO RCA 2014, Problem Status : Resolved, Surgical History Problem Title : surg ical procedures, hx of, Problem Description : surgical procedures, hx of, Problem Comment : [facility] PTCA/stent RCA 2002, Problem Status : Resolved, [place] [employer] Other Evaluation noteNo InformationNortAllegheny [facility] [employer] Other Evaluation note* Diagnosis Onset Date Resolution Status ASHD (arteriosclerotic heart disease) acute Benign prostatic hyperplasia with lower urinary tract symptoms acute Chronic kidney disease acute Elevated cholesterol acute Hypertension acute Paroxysmal atrial fibrillation acute [facility] Work Phone: Evaluation note* Diagnosis Onset Date Resolution Status ASHD (arteriosclerotic heart disease) acute Benign prostatic hyperplasia with lower urinary tract symptoms acute Chronic venous insufficiency of lower extremity acute Elevated cholesterol acute Medicare annual wellness visit, subsequent acute Obesity acute Paroxysmal atrial fibrillation acute Primary hypertension acute Stage 3a chronic kidney disease acute Type 2 diabetes mellitus with hyperglycemia acute [facility] Work Phone: Evaluation note* Diagnosis Benign [...] with long-term current use of insulin (HCC) ([facility]) documented in this encounter [facility] HealthcareEvaluation note* Diagnosis Severe claudication (CMS-HCC)- Primary Swelling of both lower extremities documented [facility] this encounter [facility] Diagnosis Swelling of both lower extremities- Primary documented in this encounter [facility] SystemEvaluation note* Diagnosis Onset Date Resolution Status [...] 2024 11:18am Obesity deleted August 29 11:18am [facility] Work Phone: History general Narrative - [...] COLONOSCOPY 2018 Hospitalization History SEE SURGICAL HX [facility] Other Hisppfa general Narrative - Reported* Type Description Date [...] History COLONOSCOPY 2018 Hospitalization History SEE SURGICAL [place] Other InstructionsNot on filedocumented in this encounter [employer] SystemInstructionsNot on filedocumented in this encounter [employer] [facility] Summary Purpose Family History No Family History Records FoundNo Family History Records FoundNo Family History Records FoundNo Family History Records Found Advance Directives Advance Directive Response Recorded Date/ Time Advance Directives No February 16, 2018 4:29pm Advance Directive Response Recorded Date/ Time Advance Directives No February 16, 2018 3:29pm Hospital Course Note MR[id number] [facility] Y[facility]aira Bar[facility]so Admitted: 12/22/2017 Discharged: 12/23/2017 Date of : 1940 Physician: Jose Hsieh MD DISCHARGE SUMMARYPRIMARY CARE PHYSICIAN: Dr. Francesca Mishra.CONSULTING PHYSICIAN: [facility].FINAL DIAGNOSES:1. Unstable angina status post cardiac cath.2. New-onset atrial fibrillation, status post cardioversion, sinus rhythm now.SECONDARY DIAGNOSES:1. Essential hypertension.2. Coronary artery disease.3. Unspecified dyslipidemia.HOSPITAL COURSE: This is a pleasant 77-year-old [facility] also found to have a new-onset atrialfibrillation. The patient was admitted, seen by Cardiology inconsultation, underwent cardiac catheterization, which revealed a patentright coronary artery stent with minimal coronary artery disease on theanterior descending artery, so the patient was started on medicalmanagement and also underwent cardioversion, which the patient toleratedvery well (more content not included)... Note MR#: [id number] [facility] Yajaira Barroso Admitted: 06/04/2018 Discharged: 06/06/2018 Date of : 1940 Physician: Tonia Mistry MD DISCHARGE SUMMARYDISCHARGE ATTENDING PHYSICIAN: MEAGAN ColemanSLIDELL [facility] MED[facility] CENT[facility]uth CARE PHYSICIAN: CHACHO Payan PROBLEMS:1. [...] Admit Date ASHD (arteriosclerotic heart disease) [facility] 2024 11:18am Benign prostatic hyperplasia with lower [...] t Referred To Contact Diagnoses Severe claudication ([facility]) Procedures Vas art doppler lwr bilat mult lev/PVR Oliver Fitzgerald MD [address], [place] [address] Referral ID Status Reason Start Date Expiration Date V isits Requested Visits Authorized [id number] Pending Review 10/22/2023 10/21/2024 1 1 Additional Source Comments (unrecognized sect ion and content) No Status Records FoundNo Status Records FoundNo Status Records FoundNo Status Records Found INFORMATION SOURCE (unrecogn ized section and content) DATE CREATED AUTHOR 06/16/2018 [facility] DATE CREATED AUTHOR AUTHOR'S ORGANIZ ATION 10/31/2022 [facility] pital DATE CREATED AUTHOR AUTHOR'S ORGANIZ ATION 05/18/2024 [facility] EPIC DATE CREATED AUTHOR AUTHOR'S ORGANIZ ATION 07/01/2024 [facility] REASON FOR VISIT (unrecogniz ed section [...] March 28, 2024 End: March 28, 2024 [employer]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 [employer] provides no warranty or guarantee of the accuracy or completeness of information in this document.
== END 2024-09-12 08:41 | disposition home or self-care (01) ==
LOC: US 08:40
PROVIDERS: PCP Internal Medicine; Visit Provider Internal Medicine
DX: N18.9 Chronic kidney disease, unspecified (principal)
CPT/HCPCS: 76775

== ENCOUNTER 2024-12-19 13:56 | Outpatient (OUT) | payer MEDICARE, SELFPAY ==
--- NOTE | 2024-12-19 13:10 | CA_ITS ---
[facility] Test Date: 2024-12-19 Pat Name: YAJAIRA VEGA Department: Room: - Gender: Male Mid Wife: Therese Craven : 1940 Requested By: [id number] Order Number: [id number] Reading MD: BLAINE FATIMA M.D. Interpretive Statements Summary of the findings: Right leg: OSWALD= 0.93; TBI= 0.54. Doppler waveforms demonstrate monophasic flow at the posterior tibial and dorsalis pedis arteries. Left leg: OSWALD= ; TBI= . Doppler waveforms demonstrate monophasic flow at the posterior tibial and dorsalis pedis arteries. Segmental pressures: Segmental pressures are suggestive of bilateral significant femoro-popliteal disease. Pulse volume recordings: PVRs at the high thigh, below knee, and ankle levels show mildly dampened waveforms. Conclusion: Right and left ankle-brachial indices are suggestive of borderline overall arterial flow at rest on the right and reduced overall arterial flow at rest on the left. Toe-brachial indices are suggestive of PAD. Segmental pressures show bilateral femoro-popliteal disease. Pulse volume recordings indicate reduced overall resting arterial flow. The study shows evidence of PAD with reduced overall arterial flow at rest. Electronically Signed On 12-19-2024 18:37:35 EDT by BLAINE FATIMA M.D.
== END 2024-12-19 13:57 | disposition home or self-care (01) ==
LOC: CARD 13:56
PROVIDERS: PCP Internal Medicine; Visit Provider Student in an Organized Health Care Education/Training Program
DX: M79.89 Other specified soft tissue disorders (principal); I73.9 Peripheral vascular disease, unspecified; R09.89 Other specified symptoms and signs involving the circulatory and respiratory systems
CPT/HCPCS: 93880; 93923

== ENCOUNTER 2025-02-06 14:00 | Outpatient (OUT) | payer MEDICARE, SELFPAY ==
--- NOTE | 2025-02-06 13:53 | CA_ITS ---
Patient Name: YAJAIRA VEGA MR#: [id number] : 1940 Exam Date: 02/06/2025 Ordering Doctor: CHRIS ANDUJAR ECHOCARDIOGRAM REPORT PROCEDURE: CA ECHO DOPPLER COMPLETE INDICATIONS: CHF with low ejection fraction COMPARISON: None. DESCRIPTION: COMPLETE ECHOCARDIOGRAM Real-time transthoracic echocardiography with 2D, M-mode, spectral and color flow Doppler performed. QUALITY: Technical quality was good. LEFT VENTRICLE: Normal chamber size. Normal left ventricular wall thickness. The septum is abnormal in motion likely due to bundle branch block. Global left ventricular systolic function is mildly reduced. LV EF: Estimated left ventricular ejection fraction is 45-50%. DIASTOLIC: Not adequately assessed due to heart rhythm. ATRIAL SEPTUM: LEFT ATRIUM: Moderate dilatation. RIGHT ATRIUM: Moderate dilatation. RIGHT VENTRICLE: Normal chamber size. Mildly reduced right ventricular systolic function. TRICUSPID VALVE: Normal mobility and thickness. No stenosis with mild regurgitation. Mild pulmonary hypertension. RVSP 35 mmHg. MITRAL VALVE: Normal mobility and thickness. No evidence of mitral valve stenosis. There is no mitral annular calcification. Mild mitral regurgitation. AORTIC VALVE: Normal trileaflet appearance. Mildly calcified aortic valve. Mildly diminished mobility. Doppler velocity suggest no aortic valve stenosis. No aortic regurgitation. AORTIC ROOT: Normal diameter and appearance, measuring 3.3 cm. The ascending aorta is normal in size measuring 3.0 cm. PULMONIC VALVE: Normal thickness and mobility. No stenosis. Trivial regurgitation. PERICARDIUM: No evidence of pericardial effusion. IVC: Mild dilatation. Measuring 2.2 cm with collapse on inspiration. PLEURA: CONCLUSION: 1. The left ventricle is normal in size and exhibits mildly reduced systolic function. Estimated LVEF is 45-50%. The septum is abnormal in motion likely due to bundle branch block. 2. Normal right ventricular size with mildly reduced systolic function. 3. Moderate biatrial dilatation. 4. Mild mitral and tricuspid regurgitation. 5. Mildly elevated right-sided pressures. RVSP is 35 mmHg. Adult Echocardiography Procedure Report Left Ventricle LVEDD (3.7 - 5.6 cm): 5.03 cm LVESD (2.2 - 4.0 cm): 3.63 cm LVIVS thickness (0.6 - 1.2 cm): 0.97 cm LVPW thickness (0.5 - 1.0 cm): 0.83 cm e': 0.07 m/s E - e': 11.50 LVOT Max Gradient: 1.20 mm[Hg] LVOT Area (cm2): 0.55 m/s Peak Velocity (LVOT): 0.55 m/s Mean Velocity (LVOT): 0.38 m/s LVOT Diameter 2.02 cm Left Ventricular Ejection Fraction: 45-50 % Left Atrium LA Volume Index (2D A2C): 27.08 ml/m2 Left Atrium Systolic Dimension: 4.34 cm Mitral Valve Mitral Valve E-Wave Peak Velocity: 0.83 m/s Right Ventricle RV Internal Diastolic Dimension: 3.93 cm Aorta AO Root Diam: 3.34 cm Ascending Ao Diam: 2.98 cm Aortic Valve AoV Area (Peak Armand): 1.55 cm2, 1.55 cm2 AoV Area (VTI): 1.82 cm2, 1.82 cm2 Peak Velocity(Antegrade Flow): 1.13 m/s Peak Gradient(Antegrade Flow): 5.07 mm[Hg] Mean Velocity(Antegrade Flow): 0.75 m/s Mean Gradient(Antegrade Flow): 2.60 mm[Hg] Velocity Time Integral: 17.77 cm Tricuspid Valve Peak Velocity (Regurgitant Flow): 2.22 m/s, 2.59 m/s, 1.97 m/s Pulmonic Valve Peak Velocity: 0.54 m/s Peak Gradient: 1.17 mm[Hg], 1.17 mm[Hg] Right Atrium Right Atrium Systolic Pressure: 97.36 ml, 97.36 ml Dictated by: Leobardo Spears M.D. on 02/06/2025 at 18:40 Approved by: Leobardo Spears M.D. on 02/06/2025 at 18:49
== END 2025-02-06 14:01 | disposition home or self-care (01) ==
LOC: CARD 14:00
PROVIDERS: PCP Internal Medicine; Visit Provider Internal Medicine Cardiovascular Disease
DX: I48.19 Other persistent atrial fibrillation (principal); I50.41 Acute combined systolic (congestive) and diastolic (congestive) heart failure
CPT/HCPCS: 93306

== ENCOUNTER 2025-04-26 09:47 | Outpatient (OUT) | payer MEDICARE, SELFPAY ==
--- OUTSIDE RECORDS SUMMARY | 2025-04-26 09:55 | XMS_ITS | Clinical Summary ---
Author Organization [facility], [facility] Address [address] [id number] Care Team Providers Care Prototype Carpenter Name Role Phone Unavailable Primary Care Provider Unavailabl e Social History Tobacco UseTypesPacks/DayYears UsedDateSmoking Tobacco: Never AssessedSex and Gender InformationValueDate RecordedSex Assigned at BirthNot on fileLegal Sex Male09/17/2022 12:12 PM EDTGender IdentityNot on fileSexual OrientationNot on file Plan of Treatment Health MaintenanceDue DateLast DoneCommentsDTaP,Tdap,and Td Vaccines (1 - Tdap) 1959Pneumococcal Vaccines 50years + (1 of 1 - PCV)1990Zoster Recombinant Vaccines (1 of 2)1990Respiratory Syncytial Virus (RSV) or ages 60 years and older (1 - 1-dose 75+ series)2015COVID-19 Vaccine ( - 2024- season)2025Influenza Vaccine (#1)2025 Respiratory Syncytial Virus (RSV) ages 0 thru 19 monthsAged OutNo longer eligible based on patient's age to complete this topic
--- OUTSIDE RECORDS SUMMARY | 2025-04-26 09:55 | XMS_ITS | Encounter Summary ---
Author Organization [facility] Address [address] [address] Care Team Providers Care Early Childhood Worker Name Role Phone Julio Patton DO Primary Care Provider [phone] Encounter Details DateTypeDepartmentCare Team (Latest Contact Info)Xpskfphzbgs00/12/2025Orders Only [facility] [address] [place] [address] Johnny Hauser MD [address] [place] [address] Social History Tobacco UseTypesPacks/DayYears UsedDateSmoking Tobacco: FormerCigarettesAlcohol UseStandard Drinks/WeekCommentsNot Currently0 (1 standard drink = 0.6 oz pure alcohol)RI Safety & EnvironmentAnswerDate RecordedFear of Current or Ex-Partner Not on file08/20/2023Emotionally AbusedNot on file08/20/2023hysically AbusedNot on 08/20/2023Sexually AbusedNot on file08/20/2023hysically or Sexually AbusedNot on file08/20/2023Sex and Gender InformationValueDate RecordedSex Assigned at QflsnTpqf18/15/2025 8:20 PM EDTLegal YwuWvlq2912/25/2021 9:48 PM EDT Gender DansqhqhEadd51/15/2025 8:20 PM EDTSexual OrientationHeterosexual or Qrebdmch86/15/2025 8:20 PM EDTdocumented as of this encounter Plan of Treatment DateTypeDepartmentCare Team (Latest Contact Info)Ohalbjdspnm72/25/2025 10:00 AM ESTOffice Visit [facility] [address] [place] [address] Gaurang Grijalva MD [address] [place] [address] 06/08/2025 12:00 PM ESTHospital Encounter [facility] [place] [facility] [address] [place] [phone] Gaurang Grijalva MD [address] [facility] [place] [address] Paroxysmal atrial fibrillation (CMS/HCC)06/08/2025 12:00 PM EST - 06/08/2025 3:00 PM ESTSurgery [facility] [address] [place] [phone] Gaurang Grijalva MD [address] [place] [address] Ablation a-fib w/ pvi [[id number] (CPT??)]06/08/2025 12:00 PM ESTAppointment [facility] [address] [place] [address] documented as of this encounter Procedures Procedure NamePriorityDate/TimeAssociated DiagnosisCommentsCARDIAC DEVICE CHECK - REMOTE - BPABVSTLSArnzsys29/12/2025 12:00 AM EDTdocumented in this encounter Results * Cardiac device check - Remote pacemaker (04/09/2025 12:00 AM EDT)Anatomical RegionLateralityModalityOtherSpecimen (Source)Anatomical Location / Laterality Collection Method / VolumeCollection TimeReceived Time04/09/2025 Narrative Authorizing ProviderResult TypeResult StatusSamarquez Hauser [facility] IMPLANTABLE CARDIAC DEVICE PROCEDURESFinal Result documented in this encounter Visit Diagnoses Not on filedocumented in this encounter Care Teams Team MemberRelationshipSpecialtyStart DateEnd Date Julio Patton DO [address] [place] [address] PCP - Uahaxhl03/26/22documented as of this encounter
--- OUTSIDE RECORDS SUMMARY | 2025-04-26 09:55 | XMS_ITS | Clinical Summary ---
Author Organization [facility] Address [address] [place] [address] Care Team Providers Care Automation Operator Name Role Phone Julio Patton DO Primary Care Provider [phone] Allergies Active AllergyReactionsCriticalityNoted DateCommentsMixed Vespid Venom Protein BctepxusufmNvmz73/16/2020 Medications MedicationSigDispense QuantityRefillsLast FilledStart DateEnd DateStatus apixaban (Eliquis) 5 mg tablet Take 5 mg by mouth in the morning and at bedtime.Active aspirin 81 mg EC tablet Take 81 mg by mouth in the morning.Active insulin aspart (NovoLOG, Fiasp) 100 UNIT/ML patient supplied pump Inject under the skin continuously.Active finasteride (Proscar) 5 mg tablet Take 5 mg by mouth in the morning. Do not crush, chew, or split.Active insulin glargine (Lantus) 100 unit/mL injection Inject 18 Units under the skin in the morning.Active rosuvastatin (Crestor) 40 mg tablet Take 40 mg by mouth in the morning.Active tamsulosin (Flomax) 0.4 mg 24 hr capsule Take 0.4 mg by mouth in the morning and at bedtime.Active insulin aspart, with niacinamide, (Fiasp FlexTouch U-100 Insulin) 100 unit/mL (3 mL) injection Fiasp FlexTouch U-100 Insulin 100 unit/mL (3 mL) subcutaneous pen INJECT USING 1:8 CARB RATIO BEFORE MEALS PLUS CORRECTION (MAX DAILY 50 UNITS) Active furosemide (Lasix) 40 mg tablet Indications:Acute on chronic heart failure with preserved ejection fraction (CMS/HCC)Take 1 tablet (40 mg) by mouth in the morning. 30 tablet ctive sotalol (Betapace) 120 mg tablet Indications:Paroxysmal atrial fibrillation (CMS/HCC)TAKE 1 TABLET (120 MG) BY MOUTH IN THE MORNING AND AT BEDTIME. 180 tablet //ctive gabapentin (Neurontin) 300 mg capsule Take 300 mg by mouth in the morning.Active azithromycin (Zithromax) 250 mg tablet Take 250 mg by mouth in the morning.Active Active Problems ProblemNoted DateDiagnosed DateBilateral carotid vztvgq3311/24/2024Medicare annual wellness visit, kkoxczexql54/10/2024enign prostatic hyperplasia with lower urinary tract ektqijfs97hange in bowel voxkxc4610/22/2023 10/22/2023hronic kidney wiovwrr58hronic venous insufficiency Elevated lebuidufclg75Long term (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 trtisyr02Severe mwuojtgscdgh57 Overview (10/22/2023): Last Assessment & Plan: We will get a PVR and follow-up after the PVR. Stage 3a chronic kidney fneuosx27Swelling of both lower azdxgfxukaq62 Overview (10/22/2023): Last Assessment & Plan: We will prescribe compression stockings after making sure he does not have severe arterial occlusive disease. Type 2 diabetes mellitus with xsshgtgngbcpt38Weight loss Severe obesity with body mass index (BMI) of 35.0 to 35.9 and glayrjbsaws10Type 2 diabetes mellitus with stage 3a chronic kidney disease, with long-term current use of pgojftd6705/14/2023 10/22/2023 Overview (10/22/2023): Last Assessment & Plan: During the appointment today all pertinent labs, imaging, health maintenance, and glucose readings were reviewed. Encouraged to check blood glucose throughout the day with some fasting and some PP readings. They are to bring their glucose meter/cgm in to all appointments. All of the patients questions, treatment options, and current care plan and goals were discussed. Acopy of this along with pertinent instructions were given to the patient at the end of the appointment. The patient voices understanding of all of this and is to call in between appointments if they have any problems or questions. Mendoza Barroso is doing very well and encouraged on this. , The patient is wearing their cgm on a daily basis and making decisions in regards to adjusting insulin daily as well for at least the last 60 days , Instructions given today include: Hypoglycemia management and Insulin instructions. Will decrease his lantus a little more to continue to prevent low bg. Acute on chronic heart failure with preserved ejection jamlqqxl52/28/2023 Jjwkjsznj73/28/Myocardial /28/Neuropathy 12/24/ICD lead zmctjftjiheb09/30/2022 Overview (06/27/2022): Added automatically from request for surgery [id number] Coronary artery disease involving [place] coronary artery of [place] heart without angina lswnkamz27/26/2022 Assessment & Plan (04/23/2022 4:33 PM EDT): Continue GDMT- ASA, crestor- hold beta juliana r/t bradycardaia Continue risk factor modifications- heart healthy diet, regular exercise as tolerated. Paroxysmal atrial aqtfbxmnrfra48/26/2022 Assessment & Plan (04/23/2022 4:40 PM EDT): EKG 03/28/22 A fib rate 56 bpm Anteroseptal [place]- probably old Holter monitor 04/22/22- predominant rhythm is a fib with average rate of 50 bpm. Bradycardia min rate =34 bpm PVC's total 0.13%- 3 couplets Pauses- 7 episodes with longest 3.2 seconds. Remains on eliquis anticoagulation Stop Sotalol 40 mg bid-EKG A fib today rate 48 bpm Asked pt to hold sotalol in light of symptomatic bradycardia, continue all other meds and he voicedunderstanding. Status post percutaneous transluminal coronary hhfwuapqmli97/26/2022 Assessment & Plan (04/23/2022 3:43 PM EDT): Stable no concerning symptoms currently Essential qkqkuzipuhkd98/26/2022 Assessment & Plan (04/23/2022 4:34 PM EDT): B/P today 174/81- will continue doxazosin 4 mg daily and add hydralazine 25 mg po bid for HTN management- No ARNOL I, ARB or aldactone with past HARLAN Renal function 04/01/22 BUN 18, CR 1.28 01/28/22 BUN 18, CR 1.24, K+ 4.6 09/09/21 BUN 24, CR 1.63 Symptomatic umoitdevrcq09/26/2022 Assessment & Plan (04/23/2022 4:36 PM EDT): Stop beta juliana, will d/w Dr Spears and Dr Grijalva regarding plans for cardioversion. D/W pt that if he remains symptomatic bradycardia he may need a permanent pacemaker and he voiced understanding. Encounters DateTypeDepartmentCare QzjdUmzcrbdhnmp08/13/2025 2:30 PM EDTAncillary Procedure [facility] [address] [place] [phone] Adjustment and management of cardiac pqgtleotc34/12/2025Orders Only [facility] [address] [place] [address] Johnny Hauser MD 02/07/2025Orders Only [facility] [address] [place] [address] ProviderSharlene MD from Last 3 Months Immunizations ImmunizationAdministration DatesNext DueCovid (Pfizer) Bivalent Booster =>12 YRS 05/02/2022Influenza, High Dose Seasonal, Preservative Free03/31/2017,04/17/2016 Influenza, High-dose Seasonal, Quadrivalent, Preservative Free05/02/2022 Influenza, trivalent, kyfoghjeby09/11/2018Unspecified Sars-Cov-2 Vaccination 09/26/2021,04/24/2021,08/16/2020,07/16/2020Zoster, live09/19/2014 Family History RelationNameStatusCommentsFatherDeceasedMotherDeceased Social History Tobacco UseTypesPacks/DayYears UsedDateSmoking Tobacco: FormerCigarettes Tobacco Cessation:Counseling Given: Not Answered Alcohol UseStandard Drinks/WeekCommentsNot Currently0 (1 standard drink = 0.6 oz pure alcohol)[place] Safety & EnvironmentAnswerDate RecordedFear of Current or Ex-PartnerNot on file08/20/2023Emotionally AbusedNot on file08/20/2023hysically AbusedNot on file08/20/2023Sexually AbusedNot on file08/20/2023hysically or Sexually AbusedNot on file08/20/2023Sex and Gender InformationValueDate Recorded Sex Assigned at LkaicWahx37/15/2025 8:20 PM EDTLegal JiwWmgx9712/25/2021 9:48 PM EDTGender YthbvnzwIhpk82/15/2025 8:20 PM EDTSexual OrientationHeterosexual or Ulrsbhac75/15/2025 8:20 PM EDT Last Filed Vital Signs Vital SignReadingTime TakenCommentsBlood Fxuwrqcb177/6107 9:49 AM EDT Bsmlv9318/22/2025 9:49 AM EDTTemperature--Respiratory Dxlt964007/08/2022 1:40 PM ESTOxygen Oesuoyqoel31%01/17/2025 9:49 AM EDTInhaled Oxygen Concentration-- Smrwyp887 kg (231 lb)01/17/2025 9:49 AM VDRDusypu643.7 cm (5' 8 )01/17/2025 9:49 AM EDTBody Mass Index35.1207 9:49 AM EDT Plan of Treatment DateTypeDepartmentCare Team (Latest Contact Info)Hdsqhjsbhfz81/25/2025 10:00 AM ESTOffice Visit [facility] [address] [facility] [place] [address] Gaurang Grijalva MD [address] [place] [phone] 06/08/2025 12:00 PM ESTHospital Encounter [facility] [address] [place] [phone] Gaurang Grijalva MD [address] [place] [address] Paroxysmal atrial fibrillation (CMS/HCC)06/08/2025 12:00 PM EST - 06/08/2025 3:00 PM ESTSurgery [facility] [address] [place] [address] Gaurang Grijalva MD [address] [place] [address] Ablation a-fib w/ pvi [[id number] (CPT??)]06/08/2025 12:00 PM ESTAppointment [facility] [address] [place] [address] Health MaintenanceDue DateLast DoneCommentsMedicare Annual Wellness (AWV) 1Diabetes: Retinopathy Kkamgofpz51/22/1951Depression Screening 3Diabetes: Urine Protein Mtpuornuq78/22/1960Zoster Vaccines (1 of 2) /Fall Risk Cbykvdvqf67/22/2006Diabetes: Hemoglobin A1C /3Adult Yoialbj82/12/2012COVID-19 Vaccine ( season)501/07/2024, 04/27/2023, 05/02/2022, Additional history existsInfluenza Vaccine (#1)509/, 03/25/2023, 05/02/2022, Additional history existsPneumococcal Vaccine: 50+ DadafWfdfubekl99/09/2016, 11/10/2012HIB VaccinesAged OutNo longer eligible based on patient's age to complete this topicHPV VaccinesAged OutNo longer eligible based on patient's age to complete this topicIPV VaccinesAged OutNo longer eligible based on patient's age to complete this topicMeningococcal B VaccineAged OutNo longer eligible based on patient's age to complete this topicMeningococcal VaccineAged OutNo longer eligible based on patient's age to complete this topicRotavirus Vaccines Aged OutNo longer eligible based on patient's age to complete this topic Medical Devices ImplantedTypeAreaManufacturerDevice IdentifierShelf Expiration DateModel / Serial / LotLead,DominicS 60, - [id number] - [id number] Implanted:Qty: 1 on 05/06/2022 by [id number] / [id number] / Lead,DominicS 53, - [id number] - [id number] Implanted:Qty: 1 on 05/06/2022 by [id number] / [id number] / [id number] Dominic S 60 [id number] Implanted:05/06/2022 (Quantity not on file)[id number] DOMINIC S 60 / [id number] / Lead,Dominic,S 53, - [id number] - [id number] Implanted:Qty: 1 on 07/08/2022 by [id number] / [id number] / [id number] Dominic S 53 [id number] Implanted:07/08/2022 (Quantity not on file)[id number] DOMINIC S 53 / [id number] / [place],Balwinder - [id number] - [id number] Implanted:Qty: 1 on 05/06/2022 by [facility][id number] / [id number] / [id number] Edora 8 Balwinder [id number] Implanted:05/06/2022 (Quantity not on file)[id number] EDORA 8 BALWINDER / [id number] / Procedures Procedure NamePriorityDate/TimeAssociated DiagnosisCommentsCARDIAC DEVICE CHECK CHECK - GWJFNTQonjxzj30/15/2025 3:29 PM EDT Adjustment and management of cardiac pacemaker CARDIAC DEVICE CHECK - REMOTE - ADQXBTEOOSgsvcgf45/12/2025 12:00 AM EDTCOMPLETE TRANSTHORACIC ECHO (TTE) W/WO IMAGING AGENT, STRAIN, 3D, BUBBLE STUDYRoutine 02/06/2025 10:40 AM EDTfrom Last 3 Months Results * CARDIAC DEVICE CHECK - REMOTE - PACEMAKER (04/12/2025 3:29 PM EDT)Specimen (Source)Anatomical Location / LateralityCollection Method / VolumeCollection TimeReceived Time Narrative Authorizing ProviderResult TypeResult StatusEusebio Armenta [facility] IMPLANTABLE CARDIAC DEVICE PROCEDURESFinal ResultPerforming OrganizationAddressCity/State/ZIP Code Phone Number CPACS * Cardiac device check - Remote pacemaker (04/09/2025 12:00 AM EDT)Anatomical RegionLateralityModalityOtherSpecimen (Source)Anatomical Location / Laterality Collection Method / VolumeCollection TimeReceived Time04/09/2025 Narrative Authorizing ProviderResult TypeResult StatusJohnny Hauser [facility] IMPLANTABLE CARDIAC DEVICE PROCEDURESFinal Result * Complete Echo (TTE) w/wo Imaging Agent, Strain, 3D, Bubble Study (02/06/2025 10:40 AM EDT)Anatomical RegionLateralityModalityUltrasound Narrative Authorizing ProviderResult TypeResult StatusHistorical Provider [facility] ECHO PROCEDURESFinal Result from Last 3 Months Insurance Care Teams Team MemberRelationshipSpecialtyStart DateEnd Date Julio Patton DO [address] [facility] [place] [address] PCP - Hcxmwew05/26/22
--- OUTSIDE RECORDS SUMMARY | 2025-04-26 09:55 | XMS_ITS | Clinical Summary ---
Author Organization [facility] Address [address] [place] [address] Care Team Providers Care Hand Flesher Name Role Phone NidiamarilynKorin Eliot DO Unavailable [phone] Julio Patton DO Primary Care Provider [phone] Allergies Active AllergyReactionsCriticalityNoted DateCommentsBee CtfhzKgseesan53/29/2018 Medications MedicationSigDispense QuantityRefillsLast FilledStart DateEnd DateStatus apixaban (Eliquis) 5 MG tablet Take 5 mg by mouth in the morning and 5 mg in the evening.Active aspirin 81 MG EC tablet Take 1 tablet by mouth in the morning.Active finasteride (Proscar) 5 MG tablet Take 5 mg by mouth in the morning.Active furosemide (Lasix) 40 MG tablet Take 40 mg by mouth every other day12/24/2022ctive rosuvastatin (Crestor) 40 MG tablet Take 40 mg by mouth in the morning.Active sotalol (Betapace) 80 MG tablet Take 1 tablet by mouth in the morning and 1 tablet before bedtime.Active tamsulosin (Flomax) 0.4 MG 24 hr capsule Indications:Benign prostatic hyperplasia with urinary frequencyTake 1 capsule (0.4 mg) by mouth in the morning. 30 capsule 05/14/2023ctive gabapentin (Neurontin) 300 MG capsule Take 300 mg by mouth DailyActive polyethylene glycol, PEG, 3350 (Miralax) 17 g packet Take 17 g by mouth in the morning.Active insulin pen needle (BD Pen Needle Johanna U/F) 32G x 4 mm misc Indications:Type 2 diabetes mellitus without complications (HCC)Inject 1 each under the skin Daily 100 each tive insulin glargine (Lantus SoloStar) 100 UNIT/ML pen Indications:Type 2 diabetes mellitus with stage 3a chronic kidney disease, with long-term current use of insulin (HCC)INJECT 24 UNITS SUBCUTANEOUSLY ONCE A DAY 15 mL 5Active Active Problems ProblemNoted DateDiagnosed DateType 2 diabetes mellitus with other circulatory bwcnlujtuljvq84/16/2024 Assessment & Plan (01/12/2025 8:47 PM EDT): During the appointment today all pertinent labs, [...] have any problems or questions. Mendoza Barroso control is stable overall. , Will stay on current medications. , The patient is wearing their cgm [...] include: Insulin instructions and Dietary education. He is to try and figure out what foods are spiking his bg. Assessment & Plan (09/18/2024 4:05 PM EDT): During the appointment today all pertinent labs, [...] very well and encouraged on this. , Will stay on current medications. , Thepatient is wearing their cgm on a daily [...] given today include: Insulin instructions and Dietary education Assessment & Plan (05/16/2024 8:46 PM EST): During the appointment today all pertinent labs, [...] any problems or questions. Mendoza Barroso is struggling to gain control of their diabetes. I am very concerned for diabetes related complications. , The patient is wearing their cgm on a daily basis and making decisions in regards to adjusting insulin daily as well for at least the last 60 days , Discussed dietary changes atlength. Encouraged to limit simple carbs and focus more on healthy protein/fat with all meals and snacks. They should also avoid any sugary drinks. , Instructions given today include: Insulin instructions and Dietary education. He needs to work better on his diet to improve control. Recommend limiting eating out and discussed easy options that he doesn't have to do a lot of cooking. Assessment & Plan (11/12/2023 2:18 PM EDT): During the appointment today all pertinent labs, [...] have any problems or questions. Mendoza Barroso control is stable overall. , The patient is wearing their cgm on a daily basis and making decisions in regards to adjusting insulin daily as well for at least the last 60 days. He wishes to increase lantus slightly which I am ok with. Stage 3a chronic kidney hbrkyhf7910/22/2023Elevated moxsqwgvaxd29/25/2024enign prostatic hyperplasia with lower urinary tract gpayfhuv97/25/2024Type 2 diabetes mellitus with stage 3a chronic kidney disease, with long-term current use of vuujigr4505/14/2023 Assessment & Plan (05/14/2023 12:41 PM EST): During the appointment today all pertinent labs, [...] more to continue to prevent low bg. Class 2 severe obesity due to excess calories with serious comorbidity and body mass index (BMI) of35.0 to 35.9 in adult05/14/20232001Pnypladbtp91/28/2023Myocardial jnzrxgagde94/28/2023Essential bqmgnoglsgar70/26/2022 Overview (11/12/2023): Last Assessment & Plan: B/P today 174/81- will continue doxazosin 4 mg daily and add hydralazine 25 mg po bid for HTN management- No ARNOL I, ARB or aldactone with past HARLAN Renal function 04/01/22 BUN 18, CR 1.28 01/28/22 BUN 18, CR 1.24, K+ 4.6 09/09/21 BUN 24, CR 1.63 Coronary artery disease involving [place] coronary artery of [place] heart without angina ojswpqod74/26/2022 Overview (11/12/2023): Last Assessment & Plan: Continue GDMT- ASA, crestor- hold beta juliana r/t bradycardaia Continue risk factor modifications- heart healthy diet, regular exercise as tolerated. Paroxysmal atrial roowjaayejvt59/24/2020 Overview (11/12/2023): Last Assessment & Plan: EKG 03/28/22 A fib rate 56 bpm Anteroseptal [place]- probably old Holter monitor 04/22/22- predominant rhythm [...] continue all other meds and he voicedunderstanding. Encounters DateTypeDepartmentCare DsgwXyevosjtjtd40/05/2025Refill [facility] [address] [place] [phone] Korin Lee, DO Type 2 diabetes mellitus with stage 3a chronic kidney disease, with long-term current use of insulin (HCC)from Last 3 Months Immunizations ImmunizationAdministration DatesNext DueInfluenza, High Dose Seasonal, Preservative Free03/28/2024,03/31/2017,04/17/2016Influenza, High-dose Seasonal, Quadrivalent, Preservative Free05/02/2022Influenza, Lehgqrccqnf70/27/2023, 03/22/2021,03/12/2020,04/01/2019Influenza, trivalent, rsmiotgirx89/11/2018 Pneumococcal Conjugate PCV 1305/02/2016Pneumococcal Polysaccharide PPSV23 11/10/2012Td (adult), 5 Lf tetanus toxoid, preservative free, mwvxyict67/07/2013 Zoster, live09/19/2014 Family History Medical HistoryRelationNameCommentsCancerBrotherDiabetesBrotherDementiaMother ParkinsonismSisterRheum arthritisSisterRelationNameStatusCommentsBrotherFather DeceasedMotherDeceasedSister Social History Tobacco UseTypesPacks/DayYears UsedDateSmoking Tobacco: FormerCigarettes Smokeless Tobacco: NeverAlcohol UseStandard Drinks/WeekCommentsYes0 (1 standard drink = 0.6 oz pure alcohol)very rareAUDIT-CAnswerDate RecordedQ1: How often do you have a drink containing alcohol?Never11/12/2023Q2: How many drinks containing alcohol do you have on a typical day when you are drinking?Patient does not drink11/12/2023Q3: How often do you have six or more drinks on one occasion?Never11/12/2023HQ-2AnswerDate RecordedPatient Health Questionnaire-2 Pxves411Sex and Gender InformationValueDate RecordedSex Assigned at BirthNot on fileLegal NkcYgry1909/10/2022 11:34 PM EDTGender IdentityNot on file Sexual OrientationNot on file Last Filed Vital Signs Vital SignReadingTime TakenCommentsBlood Kexwwtvm102/6407 2:32 PM EDT Bcqwx275801/12/2025 2:32 PM MASSclosmuhqsp36.6 ??C (97.8 ??F)01/12/2025 2:32 PM EDTRespiratory Rate--Oxygen Hsxgmymxyf30%01/12/2025 2:32 PM EDTInhaled Oxygen Concentration--Jkdwcn890 kg (236 lb)01/12/2025 2:32 PM INHRsxpzo315.4 cm (5' 8.25 )01/12/2025 2:32 PM EDTBody Mass Index35.62001/12/2025 2:32 PM EDT Plan of Treatment DateTypeDepartmentCare Team (Latest Contact Info)Byfblopkoom59/20/2025 2:45 PM ESTOffice Visit [facility] [address] [place] [address] Korin Lee, DO [address] [place] [address] Health MaintenanceDue DateLast DoneCommentsDiabetes: Retinopathy Screening 1Diabetes: Urine Protein Tvxsdlkgq29/22/1960Influenza Vaccine (#1) 5003/28/2024, 03/25/2023, 05/02/2022, Additional history existsMedicare Annual Wellness (AWV)5003/28/2024, 3Diabetes: Hemoglobin A1C 507/, 09/15/2024, 05/16/2024, Additional history exists Pneumococcal Vaccine: 65+ NjramFchwsjenf20/09/2016, 11/10/2012 Procedures Procedure NamePriorityDate/TimeAssociated DiagnosisCommentsPOCT GLYCOSYLATED HEMOGLOBIN (HGB A1C)Bhzvfoo9501/12/2025 2:44 PM EDT Type 2 diabetes mellitus with other circulatory complications (HCC) from Last 3 Months or Most Recently Relevant to Health Maintenance Results * (ABNORMAL) POCT glycosylated hemoglobin (Hb A1C) docked device (01/12/2025 2:44 PM EDT)ComponentValueRef RangeTest MethodAnalysis TimePerformed At Pathologist SignatureHemoglobin A1C8.3Specimen (Source)Anatomical Location / LateralityCollection Method / VolumeCollection TimeReceived TimeBloodVenous blood specimen / Pabsinu0301/12/2025 2:44 PM EDT Narrative Authorizing ProviderResult TypeResult StatusKorin Lee DOPOINT OF CARE TEST ENTER/EDIT ORDERABLESFinal Result from Last 3 Months or Most Recently Relevant to Health Maintenance Insurance Care Teams Team MemberRelationshipSpecialtyStart DateEnd Date Korin Lee DO [address] [facility] [address] [place] [address] PCP - [employer]04/29/22 Julio Patton DO [address] [facility] [place] [address] PCP - GeneralInternal Vopoizla11/10/23
--- OUTSIDE RECORDS SUMMARY | 2025-04-26 09:55 | XMS_ITS | Encounter Summary ---
Author Organization [facility] Address [address] [place] [address] Care Team Providers Care Redevelopment Manager Name Role Phone Korin Lee DO Unavailable [phone] Julio Whiteside DO Primary Care Provider [phone] Encounter Details DateTypeDepartmentCare Team (Latest Contact Info)Jfdqzzrwzla44/13/2024Clinisync Result Encounter [facility] Unsolicited Oliver Fitzgerald MD [address], [address] [address] Social History Tobacco UseTypesPacks/DayYears UsedDateSmoking Tobacco: FormerCigarettesAUDIT-C AnswerDate RecordedQ1: How often do you have a drink containing alcohol?Never 11/12/2023Q2: How many drinks containing alcohol do you have on a typical day when you are drinking?Patient does not drink11/12/2023Q3: How often do you have six or more drinks on one occasion?Never11/12/2023HQ-2AnswerDate Recorded Patient Health Questionnaire-2 Diljg270Sex and Gender InformationValue Date RecordedSex Assigned at BirthNot on fileLegal RkbEclo2109/10/2022 11:34 PM EDTGender IdentityNot on fileSexual OrientationNot on filedocumented as of this encounter Functional Status * AUDIT-C ScoreAnswerDate of LdhcajpmgiSlhkri844/16/2024 1:55 PM Jasmyn Ghotra LPN * QuestionAnswerDate of AssessmentAuthorQ1: How often do you have a drink containing alcohol?Never11/12/2023 1:55 PM Jasmyn Ghotra LPNQ2: How many drinks containing alcohol do you have on a typical day when you are drinking?Patient does not drink11/12/2023 1:55 PM Jasmyn Ghotra LPNQ3: How often do you have six or more drinks on one occasion?Never11/12/2023 1:55 PM Jasmyn Ghotra LPN * Over the past 2 weeks, how often have you been bothered by any of the following problems?QuestionAnswerDate of AssessmentAuthorLittle interest or pleasure in doing thingsNot at all01/12/2025 2:33 PM Jasmyn Ghotra LPN Feeling down, depressed, or hopelessNot at all01/12/2025 2:33 PM Jasmyn Ghotra LPNPatient Health Questionnaire-2 Nhvfb947 2:33 PM EDT Jasmyn Ordaz LPN documented as of this encounter Plan of Treatment DateTypeDepartmentCare Team (Latest Contact Info)Vhvsvmnikom50/20/2025 2:45 PM ESTOffice Visit [facility] [address] [place] [address] Korin Lee, [address] [place] [address] documented as of this encounter Procedures Procedure NamePriorityDate/TimeAssociated DiagnosisCommentsSEGMENTAL BLOOD XVNVEXSZ51/13/2024 1:34 PM EDT documented in this encounter Results * SEGMENTAL BLOOD PRESSURE (11/09/2023 1:34 PM EDT)Anatomical RegionLaterality ModalityRadiographic ImagingSpecimen (Source)Anatomical Location / Laterality Collection Method / VolumeCollection TimeReceived Time11/09/2023 1:34 PM EDT Narrative 11/09/2023 11:10 PM EDT [facility] ?[address] ? [place] [address] ? Cardiology Report ? Signed ? Patient: JUANAT,MENDOZA A ?MR#: [id number] ?? : 1940 ?Acct:[id number] ?? Age/Sex: 83 / M ?ADM Date: 05/13/24 ?? Loc: CARD ? Attending Dr: Mohamed Amilcar M.D. ? Ordering Physician: Oliver Fitzgerald M.D. ?? Date of Service: 11/09/23 ?? Procedure(s): CA segmental UE or LE LUNA ?? Accession Number(s): [id number] ? cc: Julio Whiteside D.O.; Oliver Fitzgerald M.D. ?[facility] ? Test Date: ?2023-11-09 ?? Pat Name: ? MENDOZA BARROSO ? Department: ? Room: ? - ?? Gender: ? Male ? Tests Superintendent: ? : ?1940 ? Requested By: 1892 ?? Order Number: [id number] ?Reading MD: ?? JULIO ??BALL ? Interpretive Statements ?? Monophasic doppler waveforms. ?? PVR waveforms with normal upstroke, blunted amplitude and loss of dicrotic ?? notch. ?? Right: ?? - significant pressure gradient between the thigh and calf cuff ?? - abnormal OSWALD ?? Left: ?? - no significant pressure gradient between cuffs ?? - abnormal OSWALD ? Impression: ?? Signficant right femoropopliteal artery disease with mild hemodynamic ?? impairment of the right lower extremity at rest. (right OSWALD 0.96) ?? Significant left lower extremity arterial disease with mild hemodynamic ?? impairment of the left lower extremity at rest. (left OSWALD 0.89) ? Electronically Signed On 11-09-2023 23:10:31 EDT by JULIO ??STEVO ? Dictated By: ?Julio Whiteside.Manju. ? Signed By: ?11/09/23 2310 ?11/09/23 2310 ? DD/ 1334 ? TD/TT: ? Historic Site Administrator: Procedure Note Radiology, Radiologist, MD - 11/10/2023 [place] [address] Cardiology Report Signed Patient: MENDOZA BARROSO [facility]#: [id number] : 1Acct:[id number] Age/Sex: 83 / MADM Date: 11/09/23 Loc: CARD Attending Dr: Oliver Fitzgerald M.D. Ordering Physician: Oliver Fitzgerald M.D. Date of Service: 11/09/23 Procedure(s): CA segmental UE or LE LUNA Accession Number(s): [id number] cc: Julio Whiteside D.O.; Oliver Fitzgerald M.D. [facility] Test Date: 2023-11-09 Pat Name: MENDOZA BARROSO Department: Room: - Gender: Male Tests Superintendent: : 1940 Requested By: 1892 Order Number: [id number] Reading MD: JULIO WHITESIDE Interpretive Statements Monophasic doppler waveforms. PVR waveforms with normal upstroke, blunted amplitude and loss of dicrotic notch. 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 (right OSWALD 0.96) Significant left lower extremity arterial disease with mild hemodynamic impairment of the left lower extremity at rest. (left OSWALD 0.89) Electronically Signed On 11-09-2023 23:10:31 EDT by JULIO WHITESIDE Dictated By: Julio Whiteside D.O. Signed By:11/09/23 23111/09/23 2310 DD/ 1334 TD/TT: Historic Site Administrator: Authorizing ProviderResult TypeResult StatusMohamed Cliff WALKERG XR PROCEDURES Final Result documented in this encounter Visit Diagnoses Not on filedocumented in this encounter Care Teams Team MemberRelationshipSpecialtyStart DateEnd Date Korin Lee DO [address] [place] [address] PCP - [employer]04/29/22 Julio Whiteside DO [address] [facility] [place] [address] PCP - GeneralInternal Usnmzoow01/10/23documented as of this encounter
--- OUTSIDE RECORDS SUMMARY | 2025-04-26 09:55 | XMS_ITS | Clinical Summary ---
Author Organization [employer] Address [facility] [id number] [address] [place] [address] Care Team Providers Care Wrapper And Preserver Name Role Phone Abdi Julio Terrence RAMIRES Primary Care Provider [phone] Allergies Active AllergyReactionsCriticalityNoted DateCommentsBee Venom Protein (Honey Bee)Rocncmkm87/29/2018Mixed Vespid Venom MzzuefcGffhtcrliprQsvl41/16/2020 Medications MedicationSigDispense QuantityRefillsLast FilledStart DateEnd DateStatus tamsulosin (FLOMAX) 0.4 mg capsule Take 1 capsule (0.4 mg total) by mouth in the morning and 1 capsule (0.4 mg total) before bedtime.03/27/2020Active rosuvastatin (CRESTOR) 40 mg tablet Take 1 tablet (40 mg total) by mouth in the morning.03/26/2020Active finasteride (PROSCAR) 5 mg tablet Take 1 tablet (5 mg total) by mouth in the morning.06/01/2020Active gabapentin (NEURONTIN) 300 mg capsule Take 1 capsule (300 mg total) by mouth in the morning.04/16/2020Active sotaloL (BETAPACE) 80 mg tablet Take 1 tablet (80 mg total) by mouth in the morning.04/02/2020Active ELIQUIS 5 mg tablet Take 1 tablet (5 mg total) by mouth in the morning and 1 tablet (5 mg total) before bedtime.06/02/2020Active aspirin 81 mg Take 1 tablet (81 mg total) by mouth in the morning.Active DOXAZOSIN MESYLATE, BULK, MISC 4 mg by miscellaneous route in the morning and 4 mg before bedtime.Active polyethylene glycol (GLYCOLAX) 17 gram/dose powder Take 17 g by mouth in the morning.Active hydrALAZINE (APRESOLINE) 50 mg tablet 09/15/2022ctive LANTUS SOLOSTAR U-100 INSULIN 100 unit/mL (3 mL) insulin pen 08/18/2022ctive lisinopriL (PRINIVIL,ZESTRIL) 10 mg tablet 09/15/2022ctive furosemide (LASIX) 40 mg tablet Take 1 tablet (40 mg total) by mouth daily.Active polyethylene glycol (GLYCOLAX) 17 gram packet Take 17 g by mouth in the morning.Active insulin aspart, niacinamide, (FIASP FLEXTOUCH U-100 INSULIN) 100 unit/mL (3 mL) insulin pen Inject under the skin. Sliding ScaleActive Active Problems ProblemNoted DateDiagnosed DateBilateral carotid cltuab0711/24/2024 Assessment & Plan (11/24/2024 9:35 AM EDT): Carotid duplex ultrasound Severe ogweaqgkcbhv08/25/2024 Assessment & Plan (11/24/2024 9:35 AM EDT): We will get PVR Assessment & Plan (10/22/2023 9:55 AM EDT): We will get a PVR and follow-up after the PVR. Swelling of both lower vtyfhmsxoaq29/25/2024 Assessment & Plan (11/24/2024 9:35 AM EDT): Continue compression stockings leg elevation exercise Assessment & Plan (10/22/2023 9:56 AM EDT): We will prescribe compression stockings after making sure he does not have severe arterial occlusive disease. A-fib02/20/2022 Social History Tobacco UseTypesPacks/DayYears UsedDateSmoking Tobacco: FormerCigarettes Tobacco Cessation:Counseling Given: Not Answered Comments:Quit awhile back Alcohol UseStandard Drinks/WeekCommentsDefer0 (1 standard drink = 0.6 oz pure alcohol)ChildcareAnswerDate YclmgrvaXcszddjfySlbwfah89/19/2020EmploymentAnswer Date VecqlbtoPqsgwkfbyzBwqfxci92/19/2020Hunger ScreeningAnswerDate Recorded Within the past 12 months we worried whether our food would run out before we got money to buy more.Never True11/24/2024Within the past 12 months the food we bought just didn't last and we didn't have money to get more.Never True 11/24/2024Purpose - LifeAnswerDate RecordedPurpose and direction in lifeUnknown 07/12/2020ex and Gender InformationValueDate RecordedSex Assigned at BirthNot on fileLegal ZzfFjqv75/19/2020 2:05 PM ESTGender IdentityNot on fileSexual OrientationNot on file Last Filed Vital Signs Vital SignReadingTime TakenCommentsBlood Vshmmocj727/76011/24/2024 9:07 AM EDT Mwcxx184511/24/2024 9:07 AM RHRHiafnfbzocf99.3 ??C (97.3 ??F)11/24/2024 9:07 AM EDTRespiratory Sqgp5968 2:45 PM EDTOxygen Nfsybudhcj91%11/24/2024 9:07 AM EDTInhaled Oxygen Concentration--Anpmof234.6 kg (235 lb)11/24/2024 9:07 AM VNUVfbmhd985.7 cm (5' 8 )11/24/2024 9:07 AM EDTBody Mass Index35.7311/24/2024 9:07 AM EDT Plan of Treatment Health MaintenanceDue DateLast DoneCommentsDepression Bgmnqzwcb51/22/1953Fall Risk Dbiicqekh01/22/2006Zoster (Shingles) Vaccine (2 of 3) DTaP,Tdap and Td Vaccines (2 - Td or Tdap)/12/2012COVID-19 Vaccine ( season), 04/27/2023, 05/02/2022, Additional history existsInfluenza Dtrohig11/, 03/25/2023, 05/02/2022, Additional history existsTobacco Goxjmgoha86 [employer] Not on file Insurance Care Teams Team MemberRelationshipSpecialtyStart DateEnd Date Julio Patton DO [address] [place] [address] PCP - GeneralInternal Medicine08/29/22
--- OUTSIDE RECORDS SUMMARY | 2025-04-26 09:56 | XMS_ITS | CCD ---
Author Organization [facility] Care Team Providers Care Waxer Name Role Phone JULIO PATTON Unavailable Unavailable BALL, JULIO Unavailable Unavailable AHMED, TONIA Unavailable Unavailable AHMED, TONIA Unavailable Unavailable VT Unavailable Unavailable GUNNAR WALLACE Unavailable Unavailable TAMI SQUIRES AM Unavailable Unavailable BALL, JULIO Unavailable Unavailable RHONA, DORIS Unavailable Unavailable COLLINS, JOSE Unavailable Unavailable VT Unavailable Unavailable ELTAHAWY, EHAB A Unavailable Unavailable VT Unavailable Unavailable Dipesh, Wesley Unavailable Unavailable Stevo, Julio Unavailable STEVO, DR [...] Unavailable BALL, DR SHAH Admitting Unavailable JOHNSONSCOTT Consulting Unavailable MICK ROA Attending Unavailable BALL, DR SHAH Primary Care Unavailable JOHNSON, SCOTT Consulting Unavailable CRISPINMICK Admitting Unavailable CRISPINMICK Consulting Unavailable PRATIMACHRIS Nunes Consulting Unavailable CHRIS ANDUJAR Attending Unavailable PRATIMACHRIS SINCLAIR Admitting Unavailable BALL, DR SHAH Primary Care Unavailable BALL, DR SHAH Primary Care Unavailable BALL, DR SHAH Consulting Unavailable BALL, DR SHAH Admitting Unavailable BALL, DR SHAH Attending Unavailable PRATIMA, CHRIS Admitting Unavailable PRATIMA, CHIRS Consulting Unavailable PRATIMA, CHRIS Attending Unavailable BALL, [...] Attending Unavailable TAPAN, DR BRASHER Admitting Unavailable Petznick , Korin Mccabe Unavailable Julio Patton MD Primary Care Provider Stevo RAMIRES, Julio Ocampo Primary Care Provider Stevo RAMIRES, Julio Ocampo Primary Care Provider Stevo RAMIRES, Julio Ocampo Primary Care Provider KORIN MERCEDES Attending Unavailable PETZNICK, KORIN Mccabe Attending Unavailable PETZNNAV, KORIN Mccabe Attending Unavailable JULIO PATTON Referring Unavailable PRATIMA, CHRIS Referring Unavailable PRATIMA, CHRIS Referring Unavailable PRATIMA, CHRIS Attending Unavailable PRATIMA, CHRIS Referring Unavailable PRATIMA, CHRIS Attending Unavailable PRATIMA, CHRIS Referring Unavailable PRATIMA, CHRIS Referring Unavailable TAPANSAMEERA Referring Unavailable Julio Patton DO Primary Care Provider Stevo RAMIRES, Julio Attending Provider Allergies Allergy ClassificationReported Allergen(s)Allergy TypeDate of OnsetReaction(s) Facility (2 sources)Bee/Wasp/Ant venom; Translations: [Bee/Wasp Stings]Propensity to adverse reactions (disorder)67-93-1549FJHZogMer[facility] (1 source)bee venomDrug allergy (disorder)[facility] Repository (9 sources)bald-faced hornet venom protein / common wasp venom protein / eastern yellow jacket venom protein /Nauruan wasp venom protein / southern yellow jacket venom protein / western yellow jacket venom protein / yellow hornet venom proteinDrug AllergyMixed Vespid Venom ProteinNokindred hospital ABSMaterials Other (1 source)patient allergy list reviewed by nurse or physiciaPropensity to adverse uydrhyttx21-91-1918Aoqjeij:DoneNokindred hospital ABSMaterials Other (1 source)Allergies ReconciledPropensity to adverse reactionsUnknowFulton State Hospital ABSMaterials Other (6 sources)Bee/Wasp/Ant venomAllergy to vavmxjoyw94-40-5169jerthzol at [facility] (10 sources)MIXED VESPID VENOM PROTEIN; Translations: [MIXED VESPID VENOM PROTEIN]Drug Kkelvzr43-08-2737PkxwyrdxqenUgqlpjkxf [facility] (7 sources)Honey bee venomPropensity to adverse -36-8286VdstcwfpLGFP Healthcare (3 sources)Bee Venom Protein (Honey Bee)Propensity to adverse reactions to drug 71-08-2168DitqndpeFxhUumygx Health System Medications Current Medications MedicationDrug Class(es)DatesSig (Normalized)Sig (Original)apixaban 5 mg oral tablet (20 sources)Factor Xa InhibitorStart: 55-95-1759pnfr 1 tablet by mouth twice dailyApixaban (Eliquis) 5 mg tablet Active 5 MG PO Twice daily 180 90 3 March 29, 2025 11:09am Complies with drug therapyStart: 10-12-2023 End: 10-78-7546vwza 1 tablet by mouth twice dailyApixaban (Eliquis) 5 mg tablet Discontinued 0 .ROUTE .COMPLEX 60 April 20, 2024 9:39pm March 29, 2025 11:10am TAKE 1 TABLET BY MOUTH TWICE A DAYStart: 02-24-2018 End: 40-69-6470canv 1 tablet by mouth twice dailyApixaban (Eliquis) 5 mg Tablet Discontinued 5 MG PO Twice daily February 24, 2018 12:00am October 12, 2023 6:34pmEliquis Activeaspirin 81 mg oral tablet (20 sources)Platelet Aggregation Inhibitor, Nonsteroidal Anti-inflammatory Drug Start: 93-05-1276fkzz 1 tablet by mouth once dailyAspirin 81 81 MG 1 tablet Orally Once a day for 30 days Mar, ActiveStart: 44-79-1142tzux 1 tablet by mouth once dailyAspirin 81 mg Tablet,Delayed Release (Dr/Ec) Active 81 MG PO Daily February 24, 2018 12:00am Complies with drug therapytake 1 tablet by mouth every twenty-four hoursAspirin 81 MG 1 tablet Orally Once a day ActiveAspirin ActiveDOXAZOSIN MESYLATE, BULK, MISC (3 sources)DOXAZOSIN MESYLATE, BULK, MISC 4 mg by miscellaneous route in the morning and 4 mg before bedtime. ActiveDOXAZOSIN MESYLATE, BULK, MISC 4 mg by miscellaneous route 2 (two) times a day. Activefinasteride 5 mg oral tablet (20 sources)5-alpha Reductase InhibitorStart: 03-02-2024 End: 36-72-4622egox 1 tablet by mouth once dailyFinasteride 5 mg tablet Active 0 .ROUTE .COMPLEX 90 3 February 28, 2025 10:19am TAKE ONE TABLET BY MOUTH ONCE DAILY Complies with drug therapyStart: 02-24-2018 End: 64-10-3686svcz 1 tablet by mouth once dailyFinasteride 5 mg Tablet Discontinued 5 MG PO Daily February 24, 2018 12:00am March 02, 2024 9:29am Finasteride Activefurosemide 40 mg oral tablet (20 sources)Loop DiureticStart: 08-84-6344irxb 1 tablet by mouth once daily Furosemide 40 mg tablet Active 40 MG PO Daily 30 28 05January 30, 2025 6:29pm Complies with drug therapyStart: 02-16-2024 End: 00-73-2883coxa 1 tablet by mouth once dailyFurosemide 40 mg tablet Discontinued 0 .ROUTE .COMPLEX 30 February 16, 2024 9:33pm January 30, 2025 6:29pm TAKE ONE TABLET BY MOUTH DAILYStart: 12-24-2022 End: 66-10-6512lvvo 1 tablet by mouth once dailyFurosemide 40 mg tablet Discontinued 40 MG PO Daily 30 30 5 August 17, 2023 1:00am January 9:33pmStart: 72-90-5798vpvv 1 tablet by mouth every other dayfurosemide (Lasix) 40 MG tablet Take 40 mg by mouth every other day 12/24/2022 Activetake 5 tablets by mouth every twenty-four hoursFurosemide 40 MG 5 mL Oral Once a day for 30 days Activegabapentin 300 mg oral capsule (20 sources)Anti-epileptic AgentStart: 42-70-8885bbgd 1 capsule by mouth once dailyGabapentin 300 mg capsule Active 0 .ROUTE .COMPLEX 90 1 February 13, 2025 1:25pm TAKE ONE CAPSULE BY MOUTH ONCE DAILY Complies with drug therapyStart: 02-24-2018 End: 72-33-5017pcxg 1 capsule by mouth once dailyGabapentin 300 mg capsule Discontinued 300 MG PO Daily 90 90 1 August 08, 2024 4:27pm February 13, 2025 1:25pmGabapentin ActivehydrALAZINE hydrochloride 50 mg oral tablet (3 sources)Arteriolar VasodilatorStart: 37-58-8843clpkPZRHYQS (APRESOLINE) 50 mg tablet 09/15/2022 Active3 ml insulin aspart, human 100 unt/ml pen injector (5 sources)Insulin AnalogStart: 33-00-6305qcvjpo 100 [IU] by subcutaneous injection onceFiasp FlexTouch 100 UNIT/ML Per sliding scale Subcutaneous Mar, Activeinsulin aspart, niacinamide, (FIASP FLEXTOUCH U-100 INSULIN) 100 unit/mL (3 mL) insulin pen Inject under the skin. Sliding Scale Active3 ml insulin glargine 100 unt/ml pen injector (18 sources)Insulin AnalogStart: 01-02-2025 End: 84-45-0833nymlehm glargine (Lantus SoloStar) 100 UNIT/ML pen Indications: Type 2 diabetes mellitus with qwcdd2n chronic kidney disease, with long-term current use of insulin (HCC) INJECT 24 UNITS UNDER THE SKIN DAILY 15 mL 01/02/2025 01/02/2026 ActiveStart: 12-21-2023 End: 14-35-4395hvhwcjp glargine (Lantus SoloStar) 100 UNIT/ML pen Indications: Type 2 diabetes mellitus with njifs7k chronic kidney disease, with long-term current use of insulin (HCC) Inject 24 Units under the skin Daily 30 mL 3 12/21/2023 ActiveStart: 29-84-4866Aeofdxm Glargine (Lantus Solostar U-100 Insulin) 100 unit/mL (3 mL) insulin pen Active 22 UNIT SUBCUT Every morning September 23, 2023 12:00am Complies with drug therapyStart: 39-56-5976Gavenm SoloStar 100 UNIT/ML 22 units Subcutaneous qd for 30 days Mar, Active Start: 84-55-5437RVEPXU SOLOSTAR U-100 INSULIN 100 unit/mL (3 mL) insulin pen 08/18/2022 ActiveStart: 51-90-4530RACBYN SOLOSTAR U-100 INSULIN 100 unit/mL (3 mL) insulin pen INJECT 24 UNITS SUBCUTANEOUSLY ONCE DAILY 08/18/2022 Active lisinopril 10 mg oral tablet (10 sources)Angiotensin Converting Enzyme InhibitorStart: 84-68-0899gacprhnfzF (PRINIVIL,ZESTRIL) 10 mg tablet 09/15/2022 Activelubiprostone 0.024 mg oral capsule (2 sources)Chloride Channel Activatortake 1 capsule by mouth twice daily lubiprostone (Amitiza) 24 MCG capsule Take 1 capsule twice a day by oral route. Activemupirocin 0.02 mg/mg topical ointment (2 sources)RNA Synthetase Inhibitor AntibacterialStart: 80-66-9065Gvdgxcmzw 2 % ointment Active 1 APPLIC TOPICAL Twice daily 22 October 26, 2024 12:00am Complies with drug therapypolyethylene glycol 3350 84648 mg powder for oral solution (13 sources)Osmotic LaxativeStart: 77-23-4603IeyhBbn 17 GM/SCOOP 1 scoop mixed with 8 ounces of fluid Orally Once a day for 30 days Mar,ctivetake 17 g by mouth in the morningpolyethylene glycol, PEG, 3350 (Miralax) 17 g packet Take 17 g by mouth in the morning. ActivePolyethylene Glycols (3 sources)Polyethylene Glycol Activerosuvastatin calcium 40 mg oral tablet (20 sources)HMG-CoA Reductase InhibitorStart: 03-02-2024 End: 75-01-6553ldtr 1 tablet by mouth once daily in the eveningRosuvastatin 40 mg tablet Active 0 .ROUTE .COMPLEX 90 3 February 28, 2025 10:19am TAKE ONE TABLETBY MOUTH DAILY IN THE EVENING Complies with drug therapyStart: 02-24-2018 End: 00-98-0038mkek 1 tablet by mouth once dailyRosuvastatin 40 mg Tablet Discontinued 40 MG PO Daily February 24, 2018 12:00am March 0249:29am Rosuvastatin Calcium Activesotalol hydrochloride 120 mg oral tablet (12 sources)AntiarrhythmicStart: 71-74-0428ujbl 1 tablet by mouth every twelve hoursSotalol HCl 120 MG 1 tablet Orally every 12 hrs for 30 days Mar, ActiveStart: 75-02-4956cdfb 1 tablet by mouth in the morningsotaloL (BETAPACE) 80 mg tablet Take 1 tablet (80 mg total) by mouth in the morning. 04/02/2020 Activetamsulosin hydrochloride 0.4 mg oral capsule (20 sources)alpha-Adrenergic BlockerStart: 15-20-9848eekf 1 capsule by mouth twice dailyTamsulosin 0.4 mg capsule Active 0 .ROUTE .COMPLEX 180 3 May 02, 2024 9:46pm TAKE ONE CAPSULEBY MOUTH TWICE A DAY Complies with drug therapy Start: 79-29-1055Xgethtbstn HCl 0.4 MG 2 Orally Once a day for 30 days Mar, ActiveStart: 59-31-5588hegv 1 capsule by mouth every twenty-four hours in the morningtamsulosin (Flomax) 0.4 MG 24 hr capsule Indications: Benign prostatic hyperplasia with urinary frequency Take 1 capsule (0.4 mg) by mouth in the morning. 30 capsule 05/14/2023 ActiveStart: 02-24-2018 End: 02-29-2828mcgq 1 capsule by mouth once dailyTamsulosin 0.4 mg Capsule Discontinued 0.4 MG PO Daily February 24, 2018 12:00am May 0249:46pm take 1 capsule by mouth twice dailyTamsulosin HCl 0.4 mg TAKE ONE CAPSULE BY MOUTH TWICE A DAY for 90 Activetake 2 capsules by mouth every twenty-four hours Tamsulosin HCl 0.4 MG 2 capsules Orally Once a day ActiveTamsulosin HCl Active Completed/Discontinued Medications MedicationDrug Class(es)DatesSig (Normalized)Sig (Original)amLODIPine 5 mg oral tablet (9 sources)Dihydropyridine Calcium Channel BlockerStart: 02-24-2018 End: 63-81-2233lnjs 1 tablet by mouth once dailyAmlodipine 5 mg Tablet Discontinued 5 MG PO Daily February 24, 2018 12:00am September 22, 2023 2:15pm amLODIPine Besylate Activeazithromycin 250 mg oral tablet (1 source)Macrolide AntimicrobialStart: 01-16-2025 End: 98-87-0976Iacktaksvkwn 250 mg tablet Discontinued 250 MG PO .COMPLEX 6 5 0 January 16, 2025 12:00am April 25, 2025 1:32pm 2 tabs on first day followed by 1 tab on days 2-5cephalexin 500 mg oral capsule (3 sources)Cephalosporin AntibacterialStart: 11-03-2024 End: 44-95-7507nurb 1 capsule by mouth twice dailyCephalexin 500 mg capsule Discontinued 500 MG PO Twice daily 28 14 0 November 03, 2024 12:46pm April 25, 2025 1:32pmStart: 10-26-2024 End: 94-86-8412qywv 1 capsule by mouth three times dailyCephalexin 500 mg capsule Discontinued 500 MG PO Three times daily 21 7 0 October 26, 2024 12:00am November 03, 2024 12:47pmempagliflozin 10 mg oral tablet (3 sources)Sodium-Glucose Cotransporter 2 InhibitorStart: 09-02-2024 End: 22-98-3182ciin 1 tablet by mouth once daily in the morningEmpagliflozin (Jardiance) 10 mg tablet Discontinued 10 MG PO Every morning 30 30 0 September 02, 2024 1:00am September 06, 2024 2:25pm24 hr metoprolol succinate 25 mg extended release oral tablet (9 sources)beta-Adrenergic BlockerStart: 02-24-2018 End: 74-72-8378cjdw 1 tablet by mouth once dailyMetoprolol Succinate 25 mg Tablet Extended Release 24 Hr Discontinued 25 MG PO Daily February 24, 2018 12:00am September 22, 2023 2:15pmMetoprolol Tartrate Activesulfamethoxazole 800 mg / trimethoprim 160 mg oral tablet (7 sources)Dihydrofolate Reductase Inhibitor Antibacterial, Sulfonamide AntimicrobialStart: 29-68-0794fpzq 1 tablet by mouth every twelve hoursBactrim DS 800-160 MG 1 tablet Orally Twice a day for 10 days Aug, Not-Ayodcb01 hr traMADol hydrochloride 100 mg extended release oral tablet (9 sources)Opioid AgonistStart: 02-24-2018 End: 32-72-2589gvox 1 tablet by mouth once dailyTramadol 100 mg Tablet Extended Release 24 Hr Discontinued 100 MG PO Daily February 24, 2018 12:00am September 22, 2023 2:15pmtraMADol HCl Active Problems Active Problems Problem ClassificationProblemDateDocumented DateEpisodic/ChronicAcute cerebrovascular disease (1 source)Cerebral infarction; Translations: [Cerebral infarction, unspecified] ChronicAcute myocardial infarction (7 sources)Myocardial infarction; Translations: [Acute myocardial infarction, unspecified]Onset: 603868-68-4337EasbarbFtvwaza dysrhythmias (20 sources)Unspecified atrial fibrillation; Translations: [Paroxysmal atrial fibrillation]Onset: 41-99-3557ArdwexbYehmoea kidney disease (20 sources)Chronic kidney disease stage 3A ; Translations: [Stage 3a chronic kidney disease]Onset: 635160-68-4914QvqlvmmPtmqfit ulcer of skin (3 sources)Ulcer of skin of lower extremity; Translations: [Non-pressure chronic ulcer of unspecified part of left lower leg with unspecified severity] 32-57-1033WlcelmvOrrzcobapf disorders (9 sources)Presence of cardiac pacemaker; Translations: [Cardiac pacemaker in situ]Onset: 509418-30-4075FqjaqgkJaeplyi on above:Dual chamber pacemaker in situCongestive heart failure; nonhypertensive (4 sources)Acute combined systolic (congestive) and diastolic (congestive) heart failure; Translations: [Acutecombined systolic and diastolic heart failure] Onset: 90-30-4458YgqzbkaYyemkftv atherosclerosis and other heart disease (20 sources)Old myocardial infarction; Translations: [Atherosclerotic heart disease of [place] coronary artery with unstable angina pectoris]Onset: 34-71-7168ShwyqjjPdsswdi on above:Echo: LVEF 60%, PHILIPPE, decreased RV function, RVSP 01/2023Echo: LVEF 60%, PHILIPPE, decreased RV function, RVSP 01/2023,Echo: LVEF 45-50%, PHILIPPE, normal RV sizew/ decreased function, RVSP 01/2025Deficiency and other anemia (1 source)Anemia; Translations: [Anemia, unspecified]EpisodicDiabetes mellitus with complications (20 sources)Hyperglycemia due to type 2 diabetes mellitus; Translations: [Type 2 diabetes mellitus with hyperglycemia]Onset: 57-59-9725WivpngfOrfoloid mellitus without complication (2 sources)Type 2 diabetes mellitus without complications; Translations: [Type 2 diabetes mellitus without complication]Onset: 61-41-1528JxpacsvYdatptphn of lipid metabolism (20 sources)Hyperlipidemia, unspecified; Translations: [Pure hypercholesterolemia]Onset: 98-42-5271TyaldrbMwlkdcceb hypertension (20 sources)Essential (primary) hypertension; Translations: [Benign essential hypertension]Onset: 50-51-8869UyaiyxmUuryehmtwzcjb symptoms and ill-defined conditions (3 sources)Dysuria; Translations: [Dysuria]Onset: 32-23-3397JzyjsanvHthtldouufr of prostate (20 sources)Benign prostatic hyperplasia without lower urinary tract symptoms; Translations: [Lower urinary tract symptoms due to benign prostatic hypertrophy] Onset: 01-81-7368MklyynfJphvtecffyet with complications and secondary hypertension (1 source)Hypertensive heart disease with heart failure; Translations: [HTN HEART DISEASE W/HEART FAIL]Onset: 61-51-7664HiugdziTeqvcrumwlzwp and screening for infectious disease (2 sources)Encounter for immunization; Translations: [Vaccination given]Onset: 35-87-1372ZefiyyzcTpriuysyy or stenosis of precerebral arteries (5 sources)Occlusion and stenosis of unspecified carotid artery; Translations: [Occlusion and stenosis of bilateral carotid arteries]Onset: 39-42-7745Zqgumga Other aftercare (1 source)jail (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 aspirin; Translations: [DIRECTOR TELECOMMUNICATIONS (CURRENT) USE OF ASPIRIN]Onset: 56-32-9856PeatroqnKbfqk aftercare (1 source)Long-term current use of drug therapy; Translations: [Other fdc (current) drug therapy]EpisodicOther aftercare (1 source)Long-term current use of anticoagulant; Translations: [jail (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 anticoagulants]EpisodicOther aftercare (13 sources)Long-term current use of insulin; Translations: [jail (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 insulin]26-79-2911AvngweexKpzya aftercare (1 source)jail (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 insulinEpisodicOther aftercare (1 source)Other rodent exterminator (current) drug therapyEpisodicOther and ill-defined heart disease (1 source)Heart disease; Translations: [Heart disease, unspecified]ChronicOther and unspecified benign neoplasm (11 sources)Polyp of colon; Translations: [Polyp of colon]EpisodicOther circulatory disease (1 source)Other specified symptoms and signs involving the circulatory and respiratory systems; Translations:[OTH SPEC SX SIGNS INVLV CIRC RS]Onset: 38-32-3466UmhtpayqYmjkg circulatory disease (4 sources)Carotid bruit; Translations: [Other specified symptoms and signs involving the circulatory and respiratory systems]Onset: 401045-89-4435 EpisodicOther connective tissue disease (8 sources)Swelling of bilateral lower limbs; Translations: [Other specified soft tissue disorders]Onset: 162256-11-0052FwfplvnjEydoa diseases of veins and lymphatics (15 sources)Peripheral venous insufficiency; Translations: [Venous insufficiency (chronic) (peripheral)]04-62-5197JuxesfaaXcswy diseases of veins and lymphatics (7 sources)Venous insufficiency (chronic) (peripheral); Translations: [Venous (peripheral) insufficiency, unspecified]EpisodicOther diseases of veins and lymphatics (6 sources)Venous insufficiency of leg; Translations: [Venous insufficiency (chronic) (peripheral)]13-00-0051BjofvscoDvyjm gastrointestinal disorders (1 source)Irritable bowel syndrome characterized by constipation; Translations: [Irritable bowel syndrome with constipation]Onset: 47-87-7034QooqbqcVlyzj gastrointestinal disorders (11 sources)Constipation; Translations: [Constipation, unspecified]EpisodicOther gastrointestinal disorders (17 sources)Altered bowel function; Translations: [Change in bowel habit] 62-78-1706KfotagipRgoolxb on above:Problem List clean-up per request of Phys. EHR CmteOther injuries and conditions due to external causes (4 sources)Exhaustion due to excessive exertion, initial encounter; Translations: [EXHAUSTION D/T EXCESS EXERTION INIT]Onset: 75-81-9059Wwpoqdmk Other injuries and conditions due to external causes (1 source)History of fall; Translations: [History of falling]EpisodicOther nervous system disorders (1 source)Polyneuropathy, unspecified; Translations: [POLYNEUROPATHY, UNSPECIFIED]Onset: 59-55-1765JaeoiafAlkzf nervous system disorders (1 source)Hereditary peripheral neuropathy; Translations: [Unspecified hereditary and idiopathic peripheral neuropathy]Onset: 96-19-1040QxmyaooKfppq nervous system disorders (7 sources)Neuropathy; Translations: [Polyneuropathy, unspecified]Onset: 575039-12-8864CpjvidkWyysi non-traumatic joint disorders (1 source)Arthralgia of the pelvic region and thigh; Translations: [Pain in left hip]EpisodicOther nutritional; endocrine; and metabolic disorders (13 sources)Obese class I; Translations: [Body mass index (BMI) 31.0-31.9, adult]Onset: 12-57-4224LaipfhgFaikz nutritional; endocrine; and metabolic disorders (7 sources)Obesity; Translations: [Obesity, unspecified]00-11-7047RrzaqhyYncyj nutritional; endocrine; and metabolic disorders (1 source)Simple obesity ; Translations: [Other obesity due to excess calories] ChronicOther nutritional; endocrine; and metabolic disorders (1 source)Body mass index 30+ - obesity; Translations: [Body mass index 31.0- 31.9, adult]Onset: 56-88-5048JzchdnrMikva nutritional; endocrine; and metabolic disorders (4 sources)Obesity, unspecified; Translations: [Obesity, unspecified]03-28-2024 ChronicOther nutritional; endocrine; and metabolic disorders (11 sources)Severe obesity; Translations: [Class 2 severe obesity due to excess calories with serious comorbidity and body mass index (BMI) of 36.0 to 36.9 in adult ([facility])]Onset: 948222-54-1961UyvqzjhOqgtr nutritional; endocrine; and metabolic disorders (12 sources)Weight loss; Translations: [Abnormal weight loss]13-72-6618Pquuufho Other screening for suspected conditions (not mental disorders or infectious disease) (6 sources)Encounter for screening for malignant neoplasm of prostate; Translations: [Patient encounter status]EpisodicPeripheral and visceral atherosclerosis (12 sources)Peripheral vascular disease, unspecified; Translations: [Peripheral vascular disease]Onset: 09-15-2022 Resolved: 80-65-4984UnvfftjRrbykcex codes; unclassified (1 source)Requires influenza virus vaccination; Translations: [Need for prophylactic vaccination and inoculation, Influenza]EpisodicSkin and subcutaneous tissue infections (2 sources)Abscess of foot; Translations: [Cutaneous abscess of left foot] Resolved: 05-62-5017WllzfwtiTnvxmtcnlus; intervertebral disc disorders; other back problems (1 source)Lumbosacral spondylosis without myelopathy; Translations: [Spondylosis without myelopathy or radiculopathy, lumbar region]ChronicSpondylosis; intervertebral disc disorders; other back problems (1 source)Low back pain; Translations: [Low back pain, unspecified]Episodic Substance-related disorders (4 sources)Tobacco user; Translations: [Nicotine dependence, cigarettes, uncomplicated]Onset: 03-06-7788DbaehsvGwbyaheigea injury; contusion (3 sources)Abrasion, left lower leg, subsequent encounter; Translations: [Abrasion of left lower leg, subsequent encounter]88-91-9773DjjhixrwZmyzjhbuxzte (2 sources)Unknown / UNK(Unknown)Onset: 81-00-8994Vfuizjrlnjah (3 sources)LOW BACK PAIN, UNSPECIFIED; Translations: [LOW BACK PAIN, UNSPECIFIED]Onset: 26-37-0850Uhaejthuyoed (1 source)Long-term current use of drug therapy; Translations: [Long-term (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 other medications]Onset: 52-42-0563Kqifsxsyhjln (2 sources)Other persistent atrial fibrillation; Translations: [Other persistent atrial fibrillation]Onset: 46-03-4883Uflbz infection (5 sources)COVID-19; Translations: [Disease caused by 2019-nCoV]Onset: 02-07-2022 Past or Other Problems Problem ClassificationProblemDateDocumented DateEpisodic/ChronicCardiac dysrhythmias (4 sources)Bradycardia, unspecified; Translations: [BRADYCARDIA UNSPECIFIED] Onset: 22-48-4993MwetbvhtNaygnym kidney disease (1 source)Chronic kidney diseaseComplication of device; implant or graft (7 sources)Displacement of cardiac electrode, initial encounter; Translations: [Displacement of other cardiac electronic device, initial encounter]Onset: 53-29-3395KxziiqqsWucpxukt atherosclerosis and other heart disease (1 source)Presence of coronary angioplasty implant and graft; Translations: [PRESENCE OF CORONARY ANGIOPLASTYIMPLANT AND GRAFT]Onset: 34-35-3970Bkcggnuc Malaise and fatigue (1 source)Malaise and fatigue; Translations: [Other malaise and fatigue]Onset: 23-67-2812DojukewqXflonlp (1 source)Onychomycosis due to dermatophyte ; Translations: [Tinea unguium] Onset: 36-31-4142TiwtblngYcxjrsbwgzn chest pain (4 sources)Chest pain, unspecified; Translations: [Chest pain]Onset: 04-23-2015 EpisodicOther aftercare (2 sources)jail (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 anticoagulants; Translations: [DIRECTOR TELECOMMUNICATIONS (CURRENT) USE OF ANTICOAGULANTS]Onset: 00-06-8900RhumzhyuKguqo aftercare (1 source)jail (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 antithrombotics/antiplatelets; Translations: [LONGTERM (CURRENT) USE OFANTITHROMBOTICS/ANTIPLATELETS]Onset: 43-69-4927QjgzouayYyxgo circulatory disease (1 source)Cardiovascular symptoms; Translations: [Other specified symptoms and signs involving the circulatory and respiratory systems] Resolved: 61-92-7764JofetazaGbkyi circulatory disease (1 source)H/O: cardiovascular disease; Translations: [Personal history of other diseases of the circulatory system] Resolved: 74-27-9594EkopyxxqVxqcg gastrointestinal disorders (1 source)Other specified symptoms and signs involving the digestive system and abdomen; Translations: [Oth symptoms and signs involving the dgstv sys and abdomen]Onset: 74-21-0430XqkogojwDfnkr lower respiratory disease (1 source)Dyspnea; Translations: [Dyspnea, unspecified]Onset: 51-31-8492Cwhxhgur Other nervous system disorders (1 source)Paresthesia; Translations: [Paresthesia of skin]Onset: 09-19-2014 EpisodicOther non-traumatic joint disorders (1 source)Pain in left hip; Translations: [PAIN IN LEFT HIP]Onset: 12-06-2021 EpisodicOther nutritional; endocrine; and metabolic disorders (1 source)Abnormal weight loss; Translations: [Abnormal weight loss]Onset: 16-16-7155YbsmjydrIjrrd skin disorders (1 source)Ingrowing nail; Translations: [Ingrowing nail] Resolved: 73-04-8569WjbkqtitGmlmw skin disorders (1 source)Nail bed infection; Translations: [Onychia and paronychia of toe] Onset: 72-71-1315OvxfuerlRhhsqwmw codes; unclassified (2 sources)Tobacco user; Translations: [Tobacco use]Onset: 67-37-8618Nlmomtda Residual codes; unclassified (1 source)Sleep disorder; Translations: [Persistent disorder of initiating or maintaining sleep]Onset: 04-58-6514LneazwrmKpvyzvaqu and history of mental health and substance abuse codes (2 sources)Personal history of nicotine dependence; Translations: [History of tobacco use]Onset: 87-27-3685WgowcipgVkxhhqvacria (1 source)LOW BACK PAIN, UNSPECIFIED; Translations: [LOW BACK PAIN, UNSPECIFIED] Onset: 12-02-2021 Results Test NameValueInterpretationReference RangeFacilityOrders Onlyon 04-09-2025 Orders [id number] Beach 1940 M Date Provider Department Center 04/09/2025 325-JULITO MARTINEZ C CARD [place] [facility] Family History Family Status - Relation Status Age at Mother Father DeceasedNormalUniMount Carmel Health SystemPrep for Procedureon 01-37-2164Riiw for [id number] Beach 1940 M Date Provider Department Center 02/22/2025 Hugh-GLO CALL C VASC LAB [facility] Family History Family Status - Relation Status Age at Mother Father DeceasedNormalUniversDiley Ridge Medical CenterOrders Onlyon 02-07-2025 Orders [id number] Beach 1940 M Date Provider Department Center 02/07/2025 [id number], HISTORICAL [facility]UAN [facility] Family History Family Status - Relation Status Age at Mother Father DeceasedNormalUniversDiley Ridge Medical CenterOffice Visiton 97-08-0477Duszpa-up [id number] Menendez 1940 M Date Provider Department Center 01/17/2025 Rich-CHRIS ANDUJAR JUAN [facility] Family History Family Status - Relation Status Age at Mother Father Level of Service:29773 [place] OFFICE/OUTPATIENT ESTABLISHED LOW MDM 20 MINNormal [facility] EbpmuhNvE2t (Bld) [Mass fraction]on 01-12-2025 Interpretation and review of laboratory resultsAbCape Fear/Harnett HealthLaboratory - Hematology and Cell countson 19-49-6831NlO2r (Bld) [Mass fraction]8.3 %[facility] HealthcareSEGMENTAL BLOOD PRESSUREon 89-14-7980[place] [address] Cardiology Report Signed Patient: YAJAIRA BARROSO MR#: [id number] : 1940 Acct:[id number] Age/Sex: 84 / M ADM Date: 12/19/24 Loc: CARD Attending Dr: Oliver Fitzgerald M.D. Ordering Physician: Oliver Fitzgerald M.D. Date of Service: 12/19/24 Procedure(s): CA segmental UE or LE LUNA Accession Number(s): [id number] cc: Julio Patton D.O.; Oliver Fitzgerald M.D. 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 Interpretive Statements Summary of the findings: Right leg: OSWALD= 0.93; TBI= 0.54. Doppler waveforms demonstrate monophasic flow at the posterior tibial and dorsalis pedis arteries. Left leg: OSWALD= ; TBI= . Doppler waveforms demonstrate monophasic flow at the posterior tibial and dorsalis pedis arteries. Segmental pressures: Segmental pressures are suggestive of bilateral significant femoro-popliteal disease. Pulse volume recordings: PVRs at the high thigh, below knee, and ankle levels show mildly dampened waveforms. Conclusion: Right and left ankle-brachial indices are suggestive of borderline overall arterial flow at rest on the right and reduced overall arterial flow at rest on the left. Toe-brachial indices are suggestive of PAD. Segmental pressures show bilateral femoro-popliteal disease. Pulse volume recordings indicate reduced overall resting arterial flow. The study shows evidence of PAD with reduced overall arterial flow at rest. Electronically Signed On 12-19-2024 18:37:35 EDT by BLAINE FATIMA M.D. Dictated By: BLAINE FATIMA Signed By: 12/19/24183612/19/241836 DD/ 1508 TD/TT: Real Time Trader:TBHRadiology, Radiologist, - 12/20/2024 [place] [address] Cardiology Report Signed Patient: YAJAIRA BARROSO MR#: [id number] : 1940 Acct:[id number] Age/Sex: 84 / M ADM Date: 12/19/24 Loc: CARD Attending Dr: Oliver Fitzgerald M.D. Ordering Physician: Oliver Fitzgerald M.D. Date of Service: 12/19/24 Procedure(s): CA segmental UE or LE LUNA Accession Number(s): [id number] cc: Julio Patton D.O.; Oliver Fitzgerald M.D. 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 Interpretive Statements Summary of the findings: Right leg: OSWALD= 0.93; TBI= 0.54. Doppler waveforms demonstrate monophasic flow at the posterior tibial and dorsalis pedis arteries. Left leg: OSWALD= ; TBI= . Doppler waveforms demonstrate monophasic flow at the posterior tibial and dorsalis pedis arteries. Segmental pressures: Segmental pressures are suggestive of bilateral significant femoro-popliteal disease. Pulse volume recordings: PVRs at the high thigh, below knee, and ankle levels show mildly dampened waveforms. Conclusion: Right and left ankle-brachial indices are suggestive of borderline overall arterial flow at rest on the right and reduced overall arterial flow at rest on the left. Toe-brachial indices are suggestive of PAD. Segmental pressures show bilateral femoro-popliteal disease. Pulse volume recordings indicate reduced overall resting arterial flow. The study shows evidence of PAD with reduced overall arterial flow at rest. Electronically Signed On 12-19-2024 18:37:35 EDT by BLAINE FATIMA M.D. Dictated By: BLAINE FATIMA Signed By: 12/19/24183612/19/241836 DD/ 1508 TD/TT: Real Time Trader: CHANELL HealthcareRadiology Study observation (narrative)[facility] HealthcareSEENTAL BLOOD PRESSUREOrdered By: Radiologist Radiology on 07-04-8298EFCS [employer] Work Phone: Estimated glomerular filtration rate (GFR) non- Americanon 25-83-0888CVL/1.73 sq M.predicted among non-blacks MDRD (S/P/Bld) [Vol rate/Area]Estimated glomerular filtration rate (GFR) non- Low>=60 mL/min/1.73m 2FBellevue HospitalLaboratory - Chemistry and Chemistry - challengeon 38-27-5534Hrzhwjb [Mass/Vol]9.3 mg/dL8.5-10.1 [facility] HospitalChloride [Moles/Vol]103 mmol/V46-904JcwfwsfunProtestant Deaconess HospitalCO2 [Moles/Vol]32.1 mmol/LHigh21.0-32.0[facility] HospitalCreatinine [Mass/Vol]1.68 mg/dLHigh0.70-1.30[facility] HospitalGFR/1.73 sq M.predicted MDRD (S/P/Bld) [Vol rate/Area]47 mL/min/{1.73_m2}Low>=60 mL/min/1.73m 2FBellevue HospitalGlucose [Mass/Vol]187 mg/nOYnnu84-273HfbdymciiProtestant Deaconess HospitalPotassium [Moles/Vol]5.0 mmol/L3.5-5.1FMadison Healthodium [Moles/Vol] 139 mmol/K202-974IdgxvvpttProtestant Deaconess HospitalUrea nitrogen [Mass/Vol]30.0 mg/dLHigh7.0-18.0[facility] HospitalUrea nitrogen/Creatinine [Mass ratio]17.9 mg/mgProtestant Deaconess HospitalMicroalbumin [Mass/volume] in Urineon 59-78-9016Zdqvxwc DL <= 20 mg/L (U) [Mass/Vol]Microalbumin [Mass/volume] in Urine<=30.0[facility]acon[facility] HospitalNo Panel Informationon 25-35-5555Iyrhe Random Caekuianit29.37 mg/dL20.00-300.00W[facility]sworth-Rittman Hospitalerum or plasma anion gap determinationon 72-98-6802Ufbkc gap [Moles/Vol]Serum or plasma anion gap determinationProtestant Deaconess HospitalUrine microalbumin/creatinine mass ratioon 59-94-0726Lpytkgb/Creatinine DL <= 20 mg/L (U) [Mass ratio]Urine microalbumin/creatinine mass ratioHigh0.0-29.9 [facility] HospitalComment on above:NO MICROALBUMINURIA 0-29 MG/GCLINICAL MICROALBUMINURIA 30-300 MG/GMACROALBUMINURIA >300 MG/GOffice Visit on 43-57-2624Ayihaj-up [id number] Yajaira Barroso 1940 M Date Provider Department Center 06/07/2024 CHRIS JAFFE CARD [facility] No family history on file Level of Service:87042 [place] OFFICE/OUTPATIENT ESTABLISHED LOW MDM 20 [facility] HospitalHbA1c (Bld) [Mass fraction]on 05-16-2024 Interpretation and review of laboratory resultsAbTrinity Health Muske[facility] Hospital HealthcareLaboratory - Hematology and Cell countson 74-41-6678MiT2k (Bld) [Mass fraction]8.8 %[facility] HealthcareECHOCARDIO M/2D COMPLETEon 21-76-2312VFYBQYCQBX M/2D COMPLETEPatient: YAJAIRA BARROSO. Exam Date: 10/24/2022 : 1940 Gender:M Ordering : CHRIS ANDUJAR Admission #: [id number] Family : DR JULIO PATTON D.O. Order #: [id number] CLICK HERE TO VIEW EXAM ECHOCARDIOGRAM REPORT [...] 64.74 ml, 64.74 ml Dictated by: Scotty Terry M.D. on 10/24/2022 at 16:23 Approved by: Scotty Terry M.D. on 10/24/2022 at 16:29[facility] HospitalUrinalysis - DIPSTICKon 95-91-7775Otunxxrkbz (U)cloudyNresearch psychiatric center ABSMaterials Other Bilirubin Ql (U)smallOKKAM ABSMaterials Other Color (U)brownShallotte ABSMaterials Other Glucose Ql (U)+Framebench Other Hemoglobin Ql (U)NegativeOKKAM ABSMaterials Other Ketones Ql (U)traceShallotte ABSMaterials Other Leukocyte esterase Test strip Ql (U)moderateShallotte ABSMaterials Other Nitrite Ql (U)PositiveOKKAM ABSMaterials Other pH (U)6.5 [pH]Framebench Other Protein Ql (U)++++Framebench Other Specific gravity (U) [Rel density]1.000[place] ABSMaterials Other Urobilinogen (U) [Mass/Vol]0.2 mg/dLNorth ABSMaterials Other Urinalysis - DIPSTICKNorth ABSMaterials Other PROF CHEM 8 (BAS METB)on 26-70-8846Lhgdh gap [Moles/Vol]7.6 mmol/LNormalAvita Health System Ontario HospitalComment on above:Performed By: #### BMP #### [facility] [address] [place] [address] Dr. Shruti RoperCalcium [Mass/Vol]8.6 mg/dLNormal8.5-10.1[facility] Comment on above:Performed By: #### BMP #### [facility] [address] [place] [address] Dr. Shruti RoperChloride [Moles/Vol]105 mmol/RKreudt36-428RgwAvita Health System Ontario Hospital Comment on above:Performed By: #### BMP #### [facility] [address] [place] [address] Dr. Shruti RoperCO2 [Moles/Vol]30.7 mmol/MOtwnqz12.0-32.0[facility] Comment on above:Performed By: #### BMP #### [facility] [address] [place] [address] Dr. Shruti RoperCreatinine [Mass/Vol]1.18 mg/dLNormal0.70-1.30The [facility] CenterComment on above:Performed By: #### BMP #### [facility] [address] [place] [address] Dr. Shruti FoleyGFR-AF BELIZEAN>60Normal>=60Av[facility] Ontario HospitalComment on above:Performed By: #### BMP #### [facility] [address] [place] [address] Dr. Shruti FoleyGFR-NON AF TYTMTOPD90 mL/min/1.09t2Cxlkudlqpd low>=60The [facility] CenterComment on above:Performed By: #### BMP #### [facility] [address] [place] [address] Dr. Shruti RoperGlucose [Mass/Vol]205 mg/dLCritically mcto59-469PlnAvita Health System Ontario HospitalComment on above:Performed By: #### BMP #### [facility] [address] [place] [address] Dr. Shruti RoperPotassium [Moles/Vol]4.3 mmol/LNormal3.5-5.1[facility] Comment on above:Performed By: #### BMP #### [facility] [address] [place] [address] Dr. Shruti Balbuenadium [Moles/Vol]139 mmol/CErdeuy283-947NomAvita Health System Ontario Hospital Comment on above:Performed By: #### BMP #### [facility] [address] [place] [address] Dr. Shruti RoperUrea nitrogen [Mass/Vol]17.0 mg/dLNormal7.0-18.0[facility] HospitalComment on above:Performed By: #### BMP #### [facility] [address] [place] [address] Dr. Shruti Bernal nitrogen/Creatinine [Mass ratio]14.4 mg/mgNormalThFairfield Medical CenterComment on above:Performed By: #### BMP #### [facility] [address] [place] [address] Dr. Shruti Shaikh AUTO DIFFon 06-63-1851QPZC #0.0 103/ulNormal0.0-0.1[facility] Ontario HospitalComment on above:Performed By: #### CBC #### [facility] [address] [place] [address] Dr. Shruti RoperBasophils/100 WBC (Bld)0.4 %Normal0.2-2.0[facility] Comment on above:Performed By: #### CBC #### [facility] [address] [place] [address] Dr. Shruti Barajas #0.1 103/ulNormal0.0-0.7The [facility] CenterComment on above: Performed By: #### CBC #### [facility] [address] [place] [address] Dr. Yilan ChangEosinophils/100 WBC (Bld)1.5 %Normal0.9-7.0The [facility] Comment on above:Performed By: #### CBC #### [facility] [address] [place] [address] Dr. Shruti Foleyrythrocyte distribution width (RBC) [Ratio]16.0 %Critically high 11.0-15.0The [facility] CenterComment on above:Performed By: #### CBC #### [facility] [address] [place] [address] Dr. Shruti RoperHematocrit (Bld) [Volume fraction]44.5 %Cipeem92.0-54.0The [facility] CenterComment on above:Performed By: #### CBC #### [facility] [address] [place] [address] Dr. Shruti RoperHemoglobin (Bld) [Mass/Vol]14.6 g/jVWepzgv86.0-18.0The [facility] CenterComment on above:Performed By: #### CBC #### [facility] [address] [place] [address] Dr. Shruti Tubbs #0.04 10e3/ulCritically high0.00-0.03The [facility] Comment on above:Performed By: #### CBC #### [facility] [address] [place] [address] Dr. Shruti Tubbs %0.4 %Normal0.0-0.5The [facility] CenterComment on above: Performed By: #### CBC #### [facility] [address] [place] [address] Dr. Shruti JaureguiMPH #2.6 103/ulNormal1.2-3.8The [facility] CenterComment on above:Performed By: #### CBC #### [facility] [address] [place] [address] Dr. Shruti Jaureguimphocytes/100 WBC (Bld)26.8 %Ghkwlh98.5-60.0The [facility] CenterComment on above:Performed By: #### CBC #### [facility] [address] [address] [address] Shruti Mustafa DIFF REQNONormalThe [facility] CenterComment on above: Performed By: #### CBC #### [facility] [address] [place] [address] Dr. Shruti Sheikh (RBC) [Entitic mass]26.7 cdEgxcvw49.9-34.0The [facility] CenterComment on above:Performed By: #### CBC #### [facility] [address] [place] [address] Dr. Shruti Sheikh (RBC) [Mass/Vol]32.8 g/mNYhailv34.9-35.2The [facility] CenterComment on above:Performed By: #### CBC #### [facility] [address] [place] [address] Dr. Shruti Sheikh (RBC) [Entitic vol]81.5 iOZtjhdi06.0-94.0The [facility] CenterComment on above:Performed By: #### CBC #### [facility] [address] [place] [address] Dr. Shruti Nova #1.0 103/ulCritically high0.3-0.8ThFairfield Medical Center Comment on above:Performed By: #### CBC #### [facility] [address] [place] [address] Dr. Shruti Orourkeocytes/100 WBC (Bld)10.8 %Normal1.7-12.0[facility] Comment on above:Performed By: #### CBC #### [facility] [address] [place] [address] Dr. Shruti Quiñonez #5.8 103/ulNormal1.4-6.5The [facility] CenterComment on above:Performed By: #### CBC #### [facility] [address] [place] [address] Dr. Shruti Ortegautrophils/100 WBC (Bld)60.1 %Esjbkb40.0-75.0The [facility] CenterComment on above:Performed By: #### CBC #### [facility] [address] [address] [address] Shruti RoperPlatelet mean volume (Bld) [Entitic vol]10.5 fLNormal9.5-13.5The [facility] CenterComment on above:Performed By: #### CBC #### [facility] [address] [address] [address] Shruti RoperPLT216 103/lnXcsyia945-739Rtn [facility] CenterComment on above: Performed By: #### CBC #### [facility] [address] [address] [address] Shruti RoperRBC5.46 106/ulNormal4.70-6.10The [facility] CenterComment on above:Performed By: #### CBC #### [facility] [address] [place] [address] Dr. Shruti RoperWBC9.6 103/ulNormal4.0-11.0The [facility] CenterComment on above: Performed By: #### CBC #### [facility] [address] [place] [address] Dr. Shruti RoperPROF CHEM 8 (BAS METB)on 68-36-8719Sxmtb gap [Moles/Vol]8.9 mmol/LNormalThe [facility] CenterComment on above:Performed By: #### BMP ####[facility] [address] [address]Dr. Shruti RoperCalcium [Mass/Vol]8.6 mg/dLNormal8.5-10.1The [facility] CenterComment on above:Performed By: #### BMP ####[facility] [address] [address]DrTimbo ChangChloride [Moles/Vol]106 mmol/LNormal 98-107The [facility] CenterComment on above:Performed By: #### BMP ####[facility] [address] [address] ChangCO2 [Moles/Vol]31.3 mmol/MVmcnrr07.0-32.0The [facility] CenterComment on above: Performed By: #### BMP ####[facility] [address] [address]Dr.Yilan ChangCreatinine [Mass/Vol]1.15 mg/dLNormal 0.70-1.30The [facility] CenterComaspirus keweenaw hospital on above:Performed By: #### BMP ####[facility] [address] [place], [place] [address]Dr. Yilan ChangEGFR-AF BELIZEAN>60Normal>=60The [facility] CenterComment on above: Performed By: #### BMP ####[facility] [address] [place], [place] [address]Dr.Yilan ChangEGFR-NON AF BELIZEAN>60Normal>=60The [facility] CenterComaspirus keweenaw hospital on above:Performed By: #### BMP ####[facility] [address] [place], [place] [address]Dr.Yilan ChangGlucose [Mass/Vol]117 mg/dLCritically ifjd38-456Qsx [facility] CenterComaspirus keweenaw hospital on above: Performed By: #### BMP ####[facility] [address] [place], [place] [address]Dr.Yilan ChangPotassium [Moles/Vol]4.2 mmol/LNormal 3.5-5.1The [facility] on above:Performed By: #### BMP ####[facility] [address] [place], [place] [address]Dr.Yilan Roper Sodium [Moles/Vol]142 mmol/YQrwckm396-026Eia [facility] on above: Performed By: #### BMP ####[facility] [address] [place], [place] [address]Dr.Yilan ChangUrea nitrogen [Mass/Vol]11.0 mg/dLNormal 7.0-18.0The [facility] on above:Performed By: #### BMP ####[facility] [address] [place], [place] [address]Dr. Yilan ChangUrea nitrogen/Creatinine [Mass ratio]9.6 mg/mgNormalThe [facility] CenterComment on above:Performed By: #### BMP ####[facility] [address] [address]Dr.Shruti ChangELECTROLYTESon 37-47-4071Dbrbi gap [Moles/Vol]6.8 mmol/LNormalThe [facility] CenterComment on above:Performed By: #### ELEC ####[facility] [address] [address]Dr. Yilan ChangChloride [Moles/Vol]106 mmol/LNormal 98-107The [facility] CenterComment on above:Performed By: #### ELEC ####[facility] [address] [place], [place] [address]Dr. Yilan ChangCO2 [Moles/Vol]32.0 mmol/FPeztsm49.0-32.0The [facility] CenterComment on above: Performed By: #### ELEC ####[facility] [address] [place], [place] [address]Dr. Yilan ChangPotassium [Moles/Vol]4.8 mmol/LNormal 3.5-5.1The [facility] CenterComment on above:Performed By: #### ELEC ####[facility] [address] [place], [place] [address]Dr. Yilan ChangSodium [Moles/Vol]140 mmol/CWoqnlm469-022Yan [facility] CenterComment on above:Performed By: #### ELEC ####[facility] [address] [place], [place] [address]Dr. Shruti ChangPROTIMEon 34-62-8566ODL Coag (PPP) [Relative time]1.04 {INR}NormalAvita Health System Ontario HospitalComaspirus keweenaw hospital on above:Performed By: #### PT #### [facility] [address] [place] [address] Dr. Shruti Laughlin [facility] Health PrebleComment on above:Result Comment: DESIRED INR: 2.0 - 3.0 CONDITIONS NOT LISTED BELOW 2.5 - 3.5 FOR PROSTHETIC HEART VALVE REPLACEMENT 2.5 - 3.5 RECURRENT THROMBOSIS Performed By: #### PT #### [facility] [address] [place] [address] Dr. Shruti RoperPT Coag ([facility]) [Time]11.2 sNormal9.0-11.6The [facility] Comment on above:Performed By: #### PT #### [facility] [id number] Shruti RoperXR CHEST 2 Von 22-91-8711DO CHEST 2 VEXAM: CHEST 2 VIEWS HISTORY: SHORTNESS OF BREATH [...] Electronically authenticated by: SCOTT JOHNSON Date: 2022-06-24 10:36[facility] HospitalXR CHEST 2 Von 13-60-3006LI CHEST 2 VEXAMINATION: XR CHEST 2 V HISTORY: Bradycardia COMPARISON: 03/28/2022 TECHNIQUE: [...] Electronically authenticated by: NICOLE THOMAS Date: 2022-05-07 15:08[facility] HospitalECHOCARDIO M/2D COMPLETEon 03-41-5718BMPOWHQKDJ M/2D COMPLETE Patient: YAJAIRA BARROSO Exam Date: 04/01/2022 : 1940 Gender:M Ordering : DR JULIO PATTON D.O. Admission #: [id number] Family : DR BLAINE FATIMA M.D. Order #: [id number] CLICK HERE TO VIEW EXAM ECHOCARDIOGRAM REPORT [...] 89.87 ml, 89.87 ml Dictated by: Scotty Terry M.D. on 04/02/2022 at 14:41 Approved by: Scotty Terry M.D. on 04/02/2022 at 14:45NoMercy Memorial HospitalPROF CHEM 8 (BAS METB)on [id number] gap [Moles/Vol]11.3 mmol/L NormalThe [facility] CenterComment on above:Performed By: #### BMP ####[facility] [address] [address]Dr.Shruti Roper Calcium [Mass/Vol]8.8 mg/dLNormal8.5-10.1The [facility] CenterComment on above: Performed By: #### BMP ####[facility] [address]qfwi[address] [address]Dr.Yilan ChangChloride [Moles/Vol]103 mmol/LNormal 98-107The [facility] on above:Performed By: #### BMP ####[facility] Vzswvsmf[address] [place], [place] [address]Dr.Yilan ChangCO2 [Moles/Vol]30.7 mmol/PJcpzpj29.0-32.0The [facility] CenterComment on above: Performed By: #### BMP ####[facility] Utpbrviqlu[address] [place], [place] [address]Dr.Yilan ChangCreatinine [Mass/Vol]1.28 mg/dLNormal 0.70-1.30The [facility] CenterComment on above:Performed By: #### BMP ####[facility] Jnpefilrgv[address] [place], [place] [address]Dr. Yilan ChangEGFR-AF BELIZEAN>60Normal>=60The [facility] CenterComaspirus [facility] on above: Performed By: #### BMP ####[facility] Aspwmoioby[address] [place], [place] [address]Dr.Yilan ChangEGFR-NON AF FGCPMKBV27 mL/min/1.73m2 Critically low>=60The [facility] CenterComment on above:Performed By: #### BMP ####[facility] Eryiocfhmh[address] [place], [place] [address]Dr. Yilan ChangGlucose [Mass/Vol]106 mg/xWSbaeog46-058Tee [facility] CenterComaspirus keweenaw hospital on above:Performed By: #### BMP ####[facility] Senfbiepnv[address] [place], [place] [address]Dr.Shruti ChangPotassium [Moles/Vol]4.0 mmol/LNormal 3.5-5.1The [facility] CenterComaspirus keweenaw hospital on above:Performed By: #### BMP ####[facility] Zdbglxnbuc[address] [place], [place] [address]Dr.Yilan Roper Sodium [Moles/Vol]141 mmol/WSzmmmr204-441Gnq [facility] on above: Performed By: #### BMP ####[facility] [address]sbedqqdow[address] [place], [place] [address]Dr.Yilan ChangUrea nitrogen [Mass/Vol]18.0 mg/dLNormal 7.0-18.0The [facility] CenterComment on above:Performed By: #### BMP ####[facility] [address] [address]Dr. Shruti RoperUrea nitrogen/Creatinine [Mass ratio]14.1 mg/mgNormalThe [facility] CenterComment on above:Performed By: #### BMP ####[facility] [address] [address]DrTimbo RoperBNPon 78-13-2708Ieganujflvw peptide B (Bld) [Mass/Vol]1722.0 pg/mLNormal<=1,800.0The [facility] CenterComment on above:Performed By: #### CMP, BNP, TSH ####[facility] [address] [address]DrLelo RoperCBC AUTO DIFFon [id number] #0.0 103/ulNormal0.0-0.1The [facility] CenterComment on above:Performed By: #### CBC #### [facility] [address] [place] [address] Dr. Shruti RoperBasophils/100 WBC (Bld)0.4 %Normal0.2-2.0The [facility] Comment on above:Performed By: #### CBC #### [facility] [address] [place] [address] Dr. Shruti Barajas #0.2 103/ulNormal0.0-0.7The [facility] CenterComment on above: Performed By: #### CBC #### [facility] [address] [address] [address] Shruti Foleyosinophils/100 WBC (Bld)2.4 %Normal0.9-7.0The [facility] Comment on above:Performed By: #### CBC #### [facility] [address] [place] [address] Dr. Shruti Foleyrythrocyte distribution width (RBC) [Ratio]14.1 %Tveppc18.0-15.0 The [facility] CenterComment on above:Performed By: #### CBC #### [facility] [address] [place] [address] Dr. Shruti RoperHematocrit (Bld) [Volume fraction]43.1 %Wfmqta39.0-54.0The [facility] CenterComment on above:Performed By: #### CBC #### [facility] [address] [place] [address] Dr. Shruti RoperHemoglobin (Bld) [Mass/Vol]13.4 g/dLCritically low14.0-18.0The [facility] CenterComment on above:Performed By: #### CBC #### [facility] [address] [place] [address] Dr. Shruti RoperIG #0.03 10e3/ulNormal0.00-0.03The [facility] CenterComment on above:Performed By: #### CBC #### [facility] [address] [place] [address] Dr. Shruti RoperIG %0.4 %Normal0.0-0.5The [facility] CenterComment on above: Performed By: #### CBC #### [facility] [address] [place] [address] Dr. Shruti Marroquin #1.8 103/ulNormal1.2-3.8The [facility] CenterComment on above:Performed By: #### CBC #### [facility] [address] [place] [address] Dr. Shruti Jaureguimphocytes/100 WBC (Bld)25.6 %Ehqcvh66.5-60.0The [facility] CenterComment on above:Performed By: #### CBC #### [facility] [address] [place] [address] Dr. Shruti RoperMANUAL DIFF REQNONormalThe [facility] CenterComment on above: Performed By: #### CBC #### [facility] [address] [place] [address] Dr. Shruti Cruz (RBC) [Entitic mass]26.3 dpQrxsbk12.9-34.0The [facility] CenterComment on above:Performed By: #### CBC #### [facility] [address] [place], [place] [address] Dr. Shruti SheikhHC (RBC) [Mass/Vol]31.1 g/dUFbcdnb93.9-35.2The [facility] CenterComment on above:Performed By: #### CBC #### [facility] [address] [place] [address] Dr. Shruti SheikhV (RBC) [Entitic vol]84.5 xBVrcqaw87.0-94.0The [facility] CenterComment on above:Performed By: #### CBC #### [facility] [address] [place] [address] Dr. Shruti Nova #0.7 103/ulNormal0.3-0.8The [facility] CenterComment on above:Performed By: #### CBC #### [facility] [address] [place] [address] Dr. Shruti Orourkeocytes/100 WBC (Bld)9.8 %Normal1.7-12.0The [facility] Comment on above:Performed By: #### CBC #### [facility] [address] [place] [address] Dr. Shruti Quiñonez #4.3 103/ulNormal1.4-6.5The [facility] CenterComment on above:Performed By: #### CBC #### [facility] [address] [place] [address] Dr. Shruti Ortegautrophils/100 WBC (Bld)61.4 %Hvxhua67.0-75.0The [facility] CenterComment on above:Performed By: #### CBC #### [facility] [address] [place] [address] Dr. Shruti Levylet mean volume (Bld) [Entitic vol]11.8 fLNormal9.5-13.5The [facility] CenterComment on above:Performed By: #### CBC #### [facility] [address] [place] [address] Dr. Shruti RoperPLT206 103/bwYhsrqg789-223Org [facility] CenterComment on above: Performed By: #### CBC #### [facility] [address] [address] [address] Shruti RoperRBC5.10 106/ulNormal4.70-6.10The [facility] on above:Performed By: #### CBC #### [facility] [address] [address] [address] Shruti RoperWBC7.0 103/ulNormal4.0-11.0The [facility] CenterComment on above: Performed By: #### CBC #### [facility] [address] [place] [address] Dr. Shruti Oropeza 14(COMP METB)on 86-47-3303Htdkplw [Mass/Vol]3.1 g/dL Critically low3.4-5.0The [facility] on above:Performed By: #### CMP, BNP, TSH #### [facility] [address] [place] [address] Dr. Shruti RoperAlbumin/Globulin [Mass ratio]0.9 {ratio}NormalThe [facility] on above:Performed By: #### CMP, BNP, TSH #### [facility] [address] [place] [address] Dr. Shruti Thomason [Catalytic activity/Vol]73 U/QDaqnzi13-667Pqh [facility] on above:Performed By: #### CMP, BNP, TSH #### [facility] [address] [place] [address] Dr. Shruti Cabezas [Catalytic activity/Vol]13 U/LCritically bhv89-52Xww [facility]ment on above:Performed By: #### CMP, BNP, TSH #### [facility] [address] [place] [address] Dr. Shruti Mar gap [Moles/Vol]8.3 mmol/LNormalThe [facility] CenterComaspirus [facility] hospital on above:Performed By: #### CMP, BNP, TSH #### [facility] [address] [place] [address] Dr. Shruti Vernon [Catalytic activity/Vol]13 U/LCritically fqv42-40Vbb [facility] HospitalComment on above:Performed By: #### CMP, BNP, TSH #### [facility] [address] [address] [address] Shruti RoperBilirubin [Mass/Vol]1.1 mg/dLCritically high0.2-1.0The [facility] CenterComment on above:Performed By: #### CMP, BNP, TSH #### [facility] [address] [place] [address] Dr. Shruti RoperCalcium [Mass/Vol]8.6 mg/dLNormal8.5-10.1The [facility] Comment on above:Performed By: #### CMP, BNP, TSH #### [facility] [address] [place] [address] Dr. Shruti RoperChloride [Moles/Vol]107 mmol/QNmuaom63-190Ihq [facility] Comment on above:Performed By: #### CMP, BNP, TSH #### [facility] [address] [place] [address] Dr. Shruti RoperCO2 [Moles/Vol]31.7 mmol/EByjvvf83.0-32.0The [facility] Comment on above:Performed By: #### CMP, BNP, TSH #### [facility] [address] [place] [address] Dr. Shruti RoperCreatinine [Mass/Vol]1.13 mg/dLNormal0.70-1.30The [facility] CenterComment on above:Performed By: #### CMP, BNP, TSH #### [facility] [address] [place] [address] Dr. Shruti FoleyGFR-AF BELIZEAN>60Normal>=60The [facility] CenterComment on above:Performed By: #### CMP, BNP, TSH #### [facility] [address] [place] [address] Dr. Shruti FoleyGFR-NON AF BELIZEAN>60Normal>=60The [facility] CenterComment on above:Performed By: #### CMP, BNP, TSH #### [facility] [address] [place] [address] Dr. Yilan ChangGlobulin (S) [Mass/Vol]3.4 g/dLNormHarrison Community HospitalComment on above:Performed By: #### CMP, BNP, TSH #### [facility] [address] [place] [address] Dr. Shruti RoperGlucose [Mass/Vol]145 mg/dLCritically kxxn97-295Rbi [facility] CenterComment on above:Performed By: #### CMP, BNP, TSH #### [facility] [address] [place] [address] Dr. Shruti RoperPotassium [Moles/Vol]4.0 mmol/LNormal3.5-5.1The [facility] Comment on above:Performed By: #### CMP, BNP, TSH #### [facility] [address] [place] [address] Dr. Shruti RoeprProtein [Mass/Vol]6.5 g/dLNormal6.4-8.2The [facility] Comment on above:Performed By: #### CMP, BNP, TSH #### [facility] [address] [place] [address] Dr. Shruti RoperSodium [Moles/Vol]143 mmol/ZRmewyu620-953Ryh [facility] Comment on above:Performed By: #### CMP, BNP, TSH #### [facility] [address] [place] [address] Dr. Shruti RoperUrea nitrogen [Mass/Vol]17.0 mg/dLNormal7.0-18.0The [facility] CenterComment on above:Performed By: #### CMP, BNP, TSH #### [facility] [address] [place] [address] Dr. Shruti RoperUrea nitrogen/Creatinine [Mass ratio]15.0 mg/mgNoMercy Memorial HospitalComment on above:Performed By: #### CMP, BNP, TSH #### [facility] [address] [place] [address] Dr. Shruti Fields 49-87-7162JYW3.294 uIU/mLNormal0.358-3.740The [facility] HospitalComment on above:Performed By: #### CMP, BNP, TSH #### [facility] [address] [address] [address] Shruti RoperXR CHEST 2 Von [id number] CHEST 2 VEXAM: CHEST 2 VIEWS HISTORY: Paroxysmal atrial fibrillation [...] Electronically authenticated by: SCOTT JOHNSON Date: 2022-03-28 13:14[facility] HospitalPROF CHEM 8 (BAS METB)on 56-97-4703Jiqqd gap [Moles/Vol]10.0 mmol/LNormalThe [facility] CenterComment on above:Performed By: #### BMP ####[facility] [address] [address]Dr. Shruti ChangCalcium [Mass/Vol]8.8 mg/dLNormal8.5-10.1The [facility] CenterComment on above:Performed By: #### BMP ####[facility] [address] [address]Dr.Yilan ChangChloride [Moles/Vol]105 mmol/LNormal 98-107The [facility] on above:Performed By: #### BMP ####[facility] [address] [address]Dr.Yilan ChangCO2 [Moles/Vol]30.6 mmol/INgjojn26.0-32.0The [facility] CenterComaspirus keweenaw hospital on above: Performed By: #### BMP ####[facility] [address]mits[address] [address]Dr.Yilan ChangCreatinine [Mass/Vol]1.24 mg/dLNormal 0.70-1.30The [facility] on above:Performed By: #### BMP ####[facility] [address] [place], [place] [address]Nh. Yilan ChangEGFR-AF BELIZEAN>60Normal>=60The [facility] CenterComment on above: Performed By: #### BMP ####[facility] [address] [place], [place] [address]Si.Yilan ChangEGFR-NON AF TKNDXHCP44 mL/min/1.73m2 Critically low>=60The [facility] CenterComment on above:Performed By: #### BMP ####[facility] [address] [address]Dr. Yilan ChangGlucose [Mass/Vol]122 mg/dLCritically ycht31-929Jno [facility] Comment on above:Performed By: #### BMP ####[facility] [address] [place], [place] [address]Dr.Yilan ChangPotassium [Moles/Vol]4.6 mmol/LNormal3.5-5.1The [facility] CenterComment on above:Performed By: #### BMP ####[facility] [address] [address]Dr. Yilan ChangSodium [Moles/Vol]141 mmol/ESzrias844-522Rkq [facility] CenterComment on above:Performed By: #### BMP ####[facility] [address] [address]Dr.Yilan ChangUrea nitrogen [Mass/Vol]18.0 mg/dLNormal 7.0-18.0The [facility] CenterComment on above:Performed By: #### BMP ####[facility] [address] [address]Dr. Yilan ChangUrea nitrogen/Creatinine [Mass ratio]14.5 mg/mgNormalThe [facility] CenterComaspirus keweenaw hospital on above:Performed By: #### BMP ####[facility] Ac[address]rak[address] [place], [place] [address]Dr.Yilan ChangUS CAROTID ART BILon [id number] CAROTID ART BILEXAMINATION: US CAROTID ART LUNA HISTORY: Bilateral carotid [...] Electronically authenticated by: NICOLE THOMAS Date: 2022-01-22 06:43[facility] HospitalXR LSPINE 2_3 VIEWSon [id number] LSPINE 2_3 VIEWSEXAMINATION: XR LSPINE 2_3 VIEWS HISTORY: Low back pain COMPARISON: No relevant comparison available. FINDINGS: BONES: 2 mm retrolisthesis of L2 on L3 and L3 on L4. Mild degenerative spondylosis. Oujy-ey-nzlcaqcs facet osteoarthropathy. DISC SPACES: Normal. No significant disc height narrowing, subluxation, or endplate abnormality. PARASPINOUS: Negative. No paraspinous abnormality is seen. OTHER: Vascular calcification IMPRESSION: Hzpv-zu-xassewcs degenerative changes Electronically authenticated by: NICOLE THOMAS Date: 2021-12-02 20:57[facility] HospitalBASIC METABOLIC PANELon [id number] mass conc9.0 mg/dL Normal8.6-10.3The [facility] EastComment on above:Order Comment: No: Do not add to previous drawPerformed By: #### 97587, 06747, 53447 ####[facility] [place] [address], [facility] Chloride molar sied617 mmol/YHhkgxr92-329Fqg [facility] Comment on above:Order Comment: No: Do not add to previous drawPerformed By: #### 51027, 51585, 61069 ####[facility] [place] [address], [place]2 molar conc25 mmol/VAosvcz38-12Kpd [facility] EastComment on above:Order Comment: No: Do not add to previous drawPerformed By: #### 29972, 58071, 77716 ####[facility] [place] [address], USACreatinine mass conc1.02 mg/dL Normal0.70-1.30The [facility] EastComment on above:Order Comment: No: Do not add to previous drawPerformed By: #### 72931, 92030, 14834 ####[facility] [place] [address], [place] GFR/1.73 sq M predicted among blacks MDRD vol rate/area (S/P/Bld) mL/min/{1.73_m2}Normal>60The [facility] EastComment on above:Order Comment: No: Do not add to previous drawResult Comment: Calculation may not be valid for patients over 70 yearsPerformed By: #### 35106, 57652, 84277 ####[facility] [place] [address], USAGFR/1.73 sq M predicted among non-blacks MDRD vol rate/area (S/P/Bld) mL/min/{1.73_m2}Normal>60The [facility] EastComment on above:Order Comment: No: Do not add to previous drawResult Comment: Calculation may not be valid for patients over 70 yearsPerformed By: #### 02274, 27914, 74259 ####[facility] [place] [address], USAGlucose mass hxqz931 mg/qFAqtt85-256Vey [facility] EastComment on above:Order Comment: No: Do not add to previous drawPerformed By: #### 88326, 93715, 78281 ####[facility] [place] [address], USAPotassium molar conc3.9 mmol/LNormal3.5-5.1 The [facility] EastComment on above:Order Comment: No: Do not add to previous drawPerformed By: #### 61272, 26349, 84476 ####[facility] [place], [place] [address] [address], USASodium molar conc 137 mmol/QWjinez165-213Xzr [facility] EastComment on above: Order Comment: No: Do not add to previous drawPerformed By: #### 39638, 03679, 44292 ####[facility] [place], [place] [address] [address], USAUrea nitrogen mass conc14 mg/dLNormal7-25The [facility] EastComment on above:Order Comment: No: Do not add to previous draw Performed By: #### 77309, 42847, 76579 ####[address] [place] [address], [facility] FACILITYCB W/DIFFon [id number] BASOPHILS0.0 10*3/uLNormal0.0-0.2The [facility] EastComment on above:Order Comment: No: Do not add to previous drawPerformed By: #### 56530, 49584, 03233 ####[facility] [facility] [place] [address], [facility] FACILITYABS IMM GRANS0.0 10*3/uLNormal0.0-0.2The [facility] EastComment on above:Order Comment: No: Do not add to previous draw Performed By: #### 13965, 78104, 68244 ####[address] [place] [address], [facility] FACILITYABS NEUTROPHILS4.4 10*3/uLNormal 1.6-7.6The [facility] EastComment on above:Order Comment: No: Do not add to previous drawPerformed By: #### 01356, 29253, 19901 ####[facility] [place] [address], [facility] Basophils Auto #/vol (Bld)0.4 %Normal0.0-1.0The [facility] EastComment on above:Order Comment: No: Do not add to previous drawPerformed By: #### 12697, 45522, 63267 ####[facility] [place] [address], [facility] FACILITYEosinophils Auto #/vol (Bld)0.2 10*3/uLNormal 0.0-0.5The [facility] EastComment on above:Order Comment: No: Do not add to previous drawPerformed By: #### 39921, 60506, 88874 ####[facility] [place] [address], [facility] Eosinophils/100 WBC Auto (Bld)1.9 %Normal0.0-6.0The [facility] EastComment on above:Order Comment: No: Do not add to previous drawPerformed By: #### 61629, 03107, 88948 ####[address] [place] [address], [facility] FACILITYErythrocyte distribution width Auto Ratio (RBC)12.9 %Ibdrns42.5-15.0The [facility] EastComment on above:Order Comment: No: Do not add to previous drawPerformed By: #### 47755, 32958, 98944 ####[facility] [place] [address], [facility]ARE FACILITYHematocrit Auto Volume Fraction (Bld)39.2 %Ofdnft85.0-50.0The [facility] EastComment on above:Order Comment: No: Do not add to previous drawPerformed By: #### 62178, 30566, 65138 ####[facility] [place] [address], [facility] FACILITYHemoglobin mass conc (Bld)13.2 g/bMGtnpps79.0-17.0The [facility] EastComment on above:Order Comment: No: Do not add to previous drawPerformed By: #### 44525, 26604, 86393 ####[place] [address], [facility] FACILITYIMMATURE GRANS0.1 %Normal0.0-1.0The [facility] EastComment on above:Order Comment: No: Do not add to previous drawPerformed By: #### 55310, 48192, 62526 ####[place] [address], [facility] FACILITYLymphocytes Auto #/vol (Bld)4.1 10*3/uLHigh 1.2-4.0The [facility] EastComment on above:Order Comment: No: Do not add to previous drawPerformed By: #### 83288, 81610, 28796 ####[place] [address], [facility] Lymphocytes/100 WBC Auto (Bld)43.0 %Emoshn45.0-45.0The [facility] EastComment on above:Order Comment: No: Do not add to previous draw Performed By: #### 06789, 09136, 46492 ####[place] [address], [facility] Auto Entitic mass (RBC)27.6 pg Udlosh12.0-33.0The [facility] EastComment on above:Order Comment: No: Do not add to previous drawPerformed By: #### 22464, 62075, 98752 ####[place] [address], [facility] MCHC Auto mass conc (RBC)33.7 g/qUOjyukg10.0-35.0The [facility] EastComment on above:Order Comment: No: Do not add to previous draw Performed By: #### 25304, 08570, 92956 ####[facility] [place] [address], USAMCV Auto Entitic volume (RBC)82.0 kVVdvymr58.0-98.0The [facility] EastComment on above:Order Comment: No: Do not add to previous drawPerformed By: #### 95570, 92295, 86394 ####[facility] [place] [address], [place] Monocytes Auto #/vol (Bld)0.8 10*3/uLNormal0.1-1.0The [facility] EastComment on above:Order Comment: No: Do not add to previous draw Performed By: #### 25891, 27221, 80874 ####[facility] [place] [address], USAMONOS8.3 %Normal5.0-12.0The [facility] EastComment on above:Order Comment: No: Do not add to previous drawPerformed By: #### 12849, 11753, 55265 ####[facility] [place] [address], USANeutrophils/100 WBC Auto (Bld)46.3 %Shfbcu24.0-72.0The [facility] EastComment on above:Order Comment: No: Do not add to previous drawPerformed By: #### 17885, 75770, 71061 ####[facility] [place] [address], USANucleated RBC/100 WBC Ratio (Bld)0 %Normal0-0The [facility] EastComment on above:Order Comment: No: Do not add to previous drawPerformed By: #### 74538, 64696, 69924 ####[facility] [place] [address], USAPLAT QIZ781 10*3/hDGozqdr013-623 The [facility] EastComment on above:Order Comment: No: Do not add to previous drawPerformed By: #### 00367, 68422, 52645 ####[facility] [place] [address], USARBC Auto #/vol (Bld)4.78 10*6/uLNormal4.20-5.70The [facility] EastComment on above:Order Comment: No: Do not add to previous drawPerformed By: #### 68918, 47718, 27283 ####[facility] [place] [address], USAWBC Auto #/vol (Bld)9.54 10*3/uLNormal4.00-10.60The [facility] EastComment on above:Order Comment: No: Do not add to previous drawPerformed By: #### 00793, 90230, 68163 ####[facility] [place] [address], USABASIC METABOLIC PANELon 06-05-2018 Calcium mass conc8.7 mg/dLNormal8.6-10.3The [facility] Comment on above:Order Comment: No: Do not add to previous drawPerformed By: #### 67790, 53950, 10995 ####[facility] [place] [address], USAChloride molar hnil004 mmol/RPllnwt82-234Vqc [facility] EastComment on above:Order Comment: No: Do not add to previous drawPerformed By: #### 49166, 25587, 77110 ####[facility] [place] [address], USACO2 molar conc30 mmol/L Luawwy98-87Tqb [facility] EastComment on above:Order Comment: No: Do not add to previous drawPerformed By: #### 85952, 12905, 04336 ####[facility] [place] [address], [facility] Creatinine mass conc0.99 mg/dLNormal0.70-1.30The [facility] EastComment on above:Order Comment: No: Do not add to previous drawPerformed By: #### 45592, 66898, 25938 ####[facility] [place] [address], USAGFR/1.73 sq M predicted among blacks MDRD vol rate/area (S/P/Bld)mL/min/{1.73_m2}Normal>60The [facility] EastComment on above:Order Comment: No: Do not add to previous drawResult Comment: Calculation may not be valid for patients over 70 yearsPerformed By: #### 63032, 03545, 04848 ####[facility] [place] [address], USAGFR/1.73 sq M predicted among non-blacks MDRD vol rate/area (S/P/Bld)mL/min/{1.73_m2}Normal>60The [facility] EastComment on above:Order Comment: No: Do not add to previous drawResult Comment: Calculation may not be valid for patients over 70 yearsPerformed By: #### 35265, 78755, 51054 ####[facility] [place] [address], [facility] FACILITYGlucose mass tpkb356 mg/cBEvrc67-928Akr [facility] EastComment on above:Order Comment: No: Do not add to previous drawPerformed By: #### 95780, 35003, 08183 ####[facility] [place] [address], [facility] FACILITYPotassium molar conc3.9 mmol/L Normal3.5-5.1The [facility] EastComment on above:Order Comment: No: Do not add to previous drawPerformed By: #### 25396, 69253, 17684 ####[facility] [place] [address], [facility] Sodium molar eixt020 mmol/KAqbeoo024-386Gtj [facility] Comment on above:Order Comment: No: Do not add to previous drawPerformed By: #### 74156, 37749, 75403 ####[facility] [place] [address], [facility] FACILITYUrea nitrogen mass conc14 mg/dLNormal7-25The [facility] EastComment on above:Order Comment: No: Do not add to previous drawPerformed By: #### 36482, 23803, 20436 ####[facility] [place] [address], [facility] FACILITYCBC COMPLETE BLOOD COUNTon 55-84-3209Ilnnguqhfxn distribution width Auto Ratio (RBC)13.0 %Mjalsw73.5-15.0 The [facility] EastComment on above:Order Comment: No: Do not add to previous drawPerformed By: #### 69546, 13449, 08711 ####[facility] [place] [address], [facility] FACILITYHematocrit Auto Volume Fraction (Bld)40.4 %Tijgjk49.0-50.0The [facility] EastComment on above:Order Comment: No: Do not add to previous drawPerformed By: #### 54546, 04125, 90389 ####[facility] [place] [address], [facility] FACILITYHemoglobin mass conc (Bld)13.3 g/dLNormal 13.0-17.0The [facility] EastComment on above:Order Comment: No: Do not add to previous drawPerformed By: #### 42485, 64311, 91004 ####[facility] [place] [address], [facility] MCH Auto Entitic mass (RBC)27.3 anUxgqcd43.0-33.0The [facility] EastComment on above:Order Comment: No: Do not add to previous draw Performed By: #### 89979, 74723, 63630 ####[facility] [place] [address], [facility] FACILITYMCHC Auto mass conc (RBC)32.9 g/dL Zcrhvf44.0-35.0The [facility] EastComment on above:Order Comment: No: Do not add to previous drawPerformed By: #### 00024, 73729, 66280 ####[facility] [place] [address], [facility] MCV Auto Entitic volume (RBC)83.0 xRTulczw76.0-98.0The [facility] EastComment on above:Order Comment: No: Do not add to previous draw Performed By: #### 88527, 63743, 54039 ####[facility] [address], [facility] FACILITYNucleated RBC/100 WBC Ratio (Bld)0 %Normal0-0The [facility] EastComment on above:Order Comment: No: Do not add to previous drawPerformed By: #### 01121, 55763, 70883 ####[address] [place] [address], [facility] PLAT VIC854 10*3/lXCfzvaw300-432Dru [facility] EastComment on above:Order Comment: No: Do not add to previous drawPerformed By: #### 65074, 53494, 60789 ####[facility] [facility] [place] [address], [facility]ARE FACILITYRBC Auto #/vol (Bld)4.87 10*6/uLNormal4.20-5.70The [facility] EastComment on above:Order Comment: No: Do not add to previous drawPerformed By: #### 48060, 86105, 96181 ####[facility] [place] [address], USAWBC Auto #/vol (Bld)8.97 10*3/uL Normal4.00-10.60The [facility] EastComment on above:Order Comment: No: Do not add to previous drawPerformed By: #### 27540, 52774, 22813 ####[place] [address] Cardiovascular Lab Reporton [id number] Lab ReportUnSelect Medical [facility] MR #: [id number] of Physician: Gunnar Wallace M.D.Division of Service Date: 06/04/2018Cardiology Birthdate: [birth year]Adult Cardiovascular Room #: 3CD [id number] [place], [place] [address]Oipqg [facility] Laboratory ReportMrLelo Barroso is a patient that I see in [facility]. He has had problems withatrial fibrillation. I saw him last on May 27. He has been onEliquis for significant period of time and he was on metoprolol.He was incontrolled ventricular response, but he was very symptomatic [...] given conscious sedation. A single 200 joule shockconvertedhim to sinus rhythm with a first-degree AV block.We will bring him in the hospital, start him on sotalol 40 mg b.i.d. Hewill be monitored for QT behavior and also for any bradycardia. I didmention ifhe could not tolerate antiarrhythmic, our plan then would be todiscontinue the antiarrhythmic, leave him anticoagulated 4- 6 weeks and thenstop anticoagulation paste, place a pacemaker and put him back onantiarrhythmic drugs.There were no apparent complications.Electronically Signed by:Gunnar Wallace M.D. 06/09/2018 09:02 A Gunnar Wallace M.D.Date Dict: 06/04/2018/12:56 P/Gunnar Wallace M.D.Date Trans: 06/05/2018 03:36 A/mmoDN_JN:[id number]: Julio Patton D.O. [address] [place] [id number] [facility] Cleveland EastMAGNESIUM BLOODon 81-67-6990Bxypvigxe mass conc2.1 mg/dLNormal1.9-2.7The [facility] EastComment on above:Order Comment: No: Do not add to previous drawPerformed By: #### 55514, 15082, 45028 ####[facility] [place] [address], [facility] FACILITYPHOSPHORUS BLOODon 06-05-2018 Phosphate mass conc3.0 mg/dLNormal2.5-5.0The [facility] Comment on above:Order Comment: No: Do not add to previous drawPerformed By: #### 26418, 47007, 45840 ####[facility] [place] [address], [facility] FACILITYHistory and Physicalon 61-66-3113Lmanpyt and Physical MR#: [id number] Pt[facility] Name: Yajaira Barroso Admitted: 06/04/2018 Date of : 1940 Attending Physician: Xin Elliott M.D. Room #: CC Discharge Date: HISTORY AND PHYSICALCHIEF COMPLAINT: Atrial fibrillation, status post cardioversion.HISTORY OF PRESENT ILLNESS: The patient is a 77-year-old malewith a past medical history of CAD, essential hypertension, hyperlipidemia,and atrial fibrillation, who presented as a direct admit for sotaloltherapy. Thepatient had an elective cardioversion today. The patient [...] Mother had Alzheimer disease and father during anoper ation.PHYSICAL EXAMINATION: GENERAL: In no acute distress. The patient isresting comfortably in bed.EYES: Pupils are reactive to light.LUNGS: Clear to auscultation bilaterally. No wheezing, rhonchi, or rales.CARDIOVASCULAR: Regular rate and rhythm. No murmurs, rubs, or gallops.Normal S1/S2.ABDOMEN:Soft, nontender, nondistended.EXTREMITIES: No bilateral lower extremity edema.SKIN: Warm and dry totouch.LABORATORY RESULTS: Basic metabolic panel, sodium 137, potassium 4.3,chloride 101, bicarb 27.4, BUN 17.0, glucose 131, creatinine 1.00.Complete blood count, WBC 9.1, hemoglobin 14.3, platelet 252, seurytdizt47.1. EKG sinus rhythm with first-degree AV block.ASSESSMENT:1. Atrial fibrillation, status post cardioversion.2. Sotalol therapy.3. Bradycardia.4. Coronary artery disease.5. Hypertension.6. Dyslipidemia.PLAN: Admit to step-down under Med-D service. Baseline EKG showed noevidence of QTc prolongation. We will start the patient on sotalol 40 mgp.o. b.i.d. We will obtain EKG after each dose of sotalol. We willmonitor for QTc prolongation and bradycardia. RCMS monitoring. We willresumehome dose of Eliquis 5 mg b.i.d. Resume home medications.Electronically Signed by:Xin Elliott M.D. 06/07/2018 09:15 P Xin Elliott M.D.Date Dict: 06/04/2018/01:34 P/Xin Elliott M.D.Date Trans: 06/04/2018 02:27 P/mmoDN_JN:[id number] [facility] COMPLETE BLOOD COUNTon 12-23-2017 Erythrocyte distribution width Auto Ratio (RBC)13.6 %Xoddsq98.5-15.0The [facility] EastComment on above:Order Comment: No: Do not add to previous drawPerformed By: #### 08976, 63753, 44627 ####[facility] [facility] [place] [address], [facility] FACILITYHematocrit Auto Volume Fraction (Bld)43.2 %Ebkroo60.0-50.0The [facility] EastComment on above:Order Comment: No: Do not add to previous drawPerformed By: #### 81153, 23092, 86649 ####[facility] [facility] [place] [address], [facility] FACILITYHemoglobin mass conc (Bld)14.3 g/dLNormal 13.0-17.0The [facility] EastComment on above:Order Comment: No: Do not add to previous drawPerformed By: #### 97083, 83637, 95770 ####[facility] [place] [address], [facility] MCH Auto Entitic mass (RBC)27.9 rpPamfup62.0-33.0The [facility] EastComment on above:Order Comment: No: Do not add to previous draw Performed By: #### 39917, 93832, 12034 ####[facility] [place] [address], [facility] FACILITYMCHC Auto mass conc (RBC)33.1 g/dL Yklsng92.0-35.0The [facility] EastComment on above:Order Comment: No: Do not add to previous drawPerformed By: #### 56316, 31289, 05049 ####[facility] [place] [address], [facility] MCV Auto Entitic volume (RBC)84.2 zBQrmpvy04.0-98.0The [facility] EastComment on above:Order Comment: No: Do not add to previous draw Performed By: #### 53466, 28112, 44252 ####[facility] [place] [address], [facility] FACILITYNucleated RBC/100 WBC Ratio (Bld)0 %Normal0-0The [facility] EastComment on above:Order Comment: No: Do not add to previous drawPerformed By: #### 24475, 28617, 28516 ####[facility] [place] [address], [facility] PLAT LNA884 10*3/sUMwprkz144-389Qct [facility] EastComment on above:Order Comment: No: Do not add to previous drawPerformed By: #### 67769, 93801, 12998 ####[facility] [place] [address], [facility] FACILITYRBC Auto #/vol (Bld)5.13 10*6/uLNormal4.20-5.70The [facility] EastComment on above:Order Comment: No: Do not add to previous drawPerformed By: #### 89463, 05505, 45037 ####[facility] [place] [address], [facility] FACILITYWBC Auto #/vol (Bld)10.61 10*3/uL High4.00-10.60The [facility] EastComment on above:Order Comment: No: Do not add to previous drawPerformed By: #### 43402, 05073, 42871 ####[facility] [place] [address], [facility] COMP METABOLIC PANELon 49-53-2427Mthuxfj mass conc3.2 g/dLLow3.5-5.7The [facility] EastComment on above:Order Comment: No: Do not add to previous drawPerformed By: #### 76145, 78994, 32364 ####[facility] [place] [address], USAALKALINE GRHLFQ76 IU/RSllrin30-320Hrp [facility] EastComment on above:Order Comment: No: Do not add to previous drawPerformed By: #### 69567, 58575, 35903 ####[facility] [place] [address], [place] ALT enzyme act/vol15 U/LNormal7-52The [facility] EastComment on above:Order Comment: No: Do not add to previous drawPerformed By: #### 24463, 57583, 60954 ####[facility] [place] [address], [facility] FACILITYAST enzyme act/vol15 U/DAvvhgt58-81Zrt [facility] EastComment on above:Order Comment: No: Do not add to previous drawPerformed By: #### 38245, 84815, 83208 ####[facility] [place] [address], USABilirubin mass conc0.8 mg/dLNormal0.3-1.0The [facility] EastComment on above:Order Comment: No: Do not add to previous drawPerformed By: #### 46864, 25041, 66158 ####[facility] [place] [address], [facility] FACILITYCalcium mass conc 8.6 mg/dLNormal8.6-10.3The [facility] EastComment on above: Order Comment: No: Do not add to previous drawPerformed By: #### 71267, 79460, 94135 ####[facility] [place] [address], USAChloride molar dmvr390 mmol/BMhjxto07-278Ptn [facility] EastComment on above:Order Comment: No: Do not add to previous draw Performed By: #### 84919, 66056, 84580 ####[facility] [place] [address], USACO2 molar conc25 mmol/UXeilwu02-42 The [facility] EastComment on above:Order Comment: No: Do not add to previous drawPerformed By: #### 90758, 92123, 55122 ####[facility] [place] [address], USACreatinine mass conc1.32 mg/dLHigh0.70-1.30The [facility] EastComment on above:Order Comment: No: Do not add to previous drawPerformed By: #### 02907, 13119, 44496 ####[facility] [place] [address], USAGFR/1.73 sq M predicted among blacks MDRD vol rate/area (S/P/Bld) mL/min/{1.73_m2}Normal>60The [facility] EastComment on above:Order Comment: No: Do not add to previous drawResult Comment: Calculation may not be valid for patients over 70 yearsPerformed By: #### 55103, 44875, 36188 ####[facility] [place] [address], USAGFR/1.73 sq M predicted among non-blacks MDRD vol rate/area (S/P/Bld) 53 ml/min/1.73sq mAbnormal>60The [facility] EastComment on above:Order Comment: No: Do not add to previous drawResult Comment: Calculation may not be valid for patients over 70 yearsPerformed By: #### 84517, 84205, 35124 ####[facility] [place] [address], [facility] FACILITYGlucose mass conc80 mg/rPNrenbm81-205Pnu [facility] EastComment on above:Order Comment: No: Do not add to previous drawPerformed By: #### 79781, 96080, 45715 ####[facility] [place] [address], [facility] FACILITYPotassium molar conc4.4 mmol/LNormal3.5-5.1 The [facility] EastComment on above:Order Comment: No: Do not add to previous drawPerformed By: #### 93406, 73249, 26912 ####[facility] [place] [address] [place] [address], [facility]ACILITYProtein mass conc 5.4 g/dLLow6.0-8.3The [facility] EastComment on above:Order Comment: No: Do not add to previous drawPerformed By: #### 54620, 58138, 65242 ####[address] [place] [address], [place] Sodium molar csyw597 mmol/EFlzryr341-470Wab [facility] Comment on above:Order Comment: No: Do not add to previous drawPerformed By: #### 07034, 40493, 85330 ####[address] [place] [address], USAUrea nitrogen mass conc23 mg/dLNormal7-25The [facility] EastComment on above:Order Comment: No: Do not add to previous drawPerformed By: #### 09582, 18397, 87977 ####[address] [place] [address], [facility] FACILITYMAGNESIUM BLOODon 36-20-3907Gkodxcgyp mass conc2.1 mg/dLNormal1.9-2.7The [facility] EastComment on above:Order Comment: No: Do not add to previous draw Performed By: #### 24485, 95551, 46109 ####[facility] [facility] [place] [address], [facility] FACILITYPHOSPHORUS BLOODon 12-23-2017 Phosphate mass conc4.5 mg/dLNormal2.5-5.0The [facility] Comment on above:Order Comment: No: Do not add to previous drawPerformed By: #### 97110, 78041, 71986 ####[facility] [facility] [place] [address], [facility] FACILITYUFH HEPARIN ASSAYon 83-99-4634WZIEUZUPWZGCFK HEPARIN 0.59 IU/mLNormal0.30-0.70The [facility] EastComment on above:Result Comment: Rivaroxaban and Apixaban will interfere with the anti Xa assay used tomonitor UFH and LMWH.Performed By: #### 53599, 49132, 16773 ####[address] APTTon 27-08-1846kYXX Coag time (Bld)34.1 kUdfpot04.0-35.0The [facility] EastComment on above:Result Comment: ALL RESULTS MUST BE INTERPRETED WITH RESPECT TO BLOOD DRAWING ARTIFACTOR DILUTION ERROR OF ANTICOAGULANT AT THE TIME OF SAMPLING.THE APTT SHOULD NOT BE USED TO MONITOR UNFRACTIONATED HEPARIN THERAPY, THIS LABORATORY NO LONGER HAS AN ESTABLISHED THERAPEUTIC RANGE BASEDON THE APTT. IT IS RECOMMENDED THAT THE UFH - HEPARIN ASSAY (ANTI-XAACTIVITY) BE USED FOR THIS PURPOSE.Performed By: #### 33746, 32322 ####[place] [address] [facility] [place] [address], [facility] BASIC METABOLIC PANELon 92-34-0265Eqhpdhv mass conc9.2 mg/dLNormal8.6-10.3The [facility] EastComment on above:Order Comment: No: Do not add to previous drawPerformed By: #### 80470, 06064, 37419 ####[place] [address] [facility] [place] [address], USAChloride molar conc 98 mmol/FIpvdzb68-555Xou [facility] EastComment on above: Order Comment: No: Do not add to previous drawPerformed By: #### 70574, 96596, 03564 ####[facility] [place] [address], USACO2 molar conc24 mmol/YVhkemk07-64Cdo [facility] EastComment on above:Order Comment: No: Do not add to previous drawPerformed By: #### 44262, 46915, 44391 ####[facility] [place] [address], USACreatinine mass conc0.96 mg/dLNormal0.70-1.30 The [facility] EastComment on above:Order Comment: No: Do not add to previous drawPerformed By: #### 73226, 03327, 13028 ####[facility] [place] [address], USAGFR/1.73 sq M predicted among blacks MDRD vol rate/area (S/P/Bld)mL/min/{1.73_m2}Normal>60The [facility] EastComment on above:Order Comment: No: Do not add to previous drawResult Comment: Calculation may not be valid for patients over 70 yearsPerformed By: #### 36041, 72119, 28613 ####[facility] [place] [address], USAGFR/1.73 sq M predicted among non-blacks MDRD vol rate/area (S/P/Bld)mL/min/{1.73_m2}Normal>60The [facility] EastComment on above:Order Comment: No: Do not add to previous drawResult Comment: Calculation may not be valid for patients over 70 yearsPerformed By: #### 05206, 95640, 06565 ####[facility] [place] [address], USAGlucose mass conc99 mg/dL Dciicl93-450Cea [facility] EastComment on above:Order Comment: No: Do not add to previous drawPerformed By: #### 59183, 23082, 06381 ####[facility] [facility] [place] [address], [facility] Potassium molar conc3.4 mmol/LLow3.5-5.1The [facility] Comment on above:Order Comment: No: Do not add to previous drawPerformed By: #### 06232, 88713, 49474 ####[facility] [facility] [place] [address], [facility] FACILITYSodium molar wrmw041 mmol/XFar544-989Zei [facility] EastComment on above:Order Comment: No: Do not add to previous drawPerformed By: #### 35895, 51874, 23893 ####[facility] [facility] [place] [address], USAUrea nitrogen mass conc18 mg/dL Normal7-25The [facility] EastComment on above:Order Comment: No: Do not add to previous drawPerformed By: #### 95173, 14448, 92005 ####[facility] [place] [address].[place] [address], [facility] CBC W/DIFFon 74-41-4735KNH BASOPHILS0.1 10*3/uLNormal0.0-0.2The [facility] EastComment on above:Performed By: #### 41904 ####[facility] [facility] [place] [address], [facility] FACILITYABS IMM GRANS0.0 10*3/uLNormal0.0-0.2The [facility] EastComment on above: Performed By: #### 28340 ####[facility] [facility] [place] [address], [facility] FACILITYABS NEUTROPHILS5.7 10*3/uLNormal1.6-7.6The [facility] EastComment on above:Performed By: #### 55340 ####[facility] [place] [address], USABasophils Auto #/vol (Bld)0.4 %Normal0.0-1.0The [facility] EastComment on above:Performed By: #### 48147 ####[facility] [place] [address], USAEosinophils Auto #/vol (Bld)0.2 10*3/uLNormal 0.0-0.5The [facility] EastComment on above:Performed By: #### 34418 ####[facility] [place] [address], USAEosinophils/100 WBC Auto (Bld)1.3 %Normal0.0-6.0The [facility] EastComment on above:Performed By: #### 42807 ####[facility] [place] [address], USAErythrocyte distribution width Auto Ratio (RBC)13.3 %Fyubgn36.5-15.0The [facility] EastComment on above:Performed By: #### 55952 ####[facility] [place] [address], [facility] FACILITYHematocrit Auto Volume Fraction (Bld)46.3 %Jtxovg30.0-50.0The [facility] Comment on above:Performed By: #### [id number] ####[facility] [place] [address], [facility]ARE FACILITYHemoglobin mass conc (Bld)15.6 g/qFIeucsf72.0-17.0The [facility] Cleveland EastComment on above: Performed By: #### 66047 ####[facility] [place] [address], USAIMMATURE GRANS0.3 %Normal0.0-1.0The [facility] Hospital Cleveland EastComment on above:Performed By: #### 99823 ####[facility] [place] [address].[place] [address], [facility]ARE FACILITYLymphocytes Auto #/vol (Bld)4.6 10*3/uLHigh1.2-4.0The [facility] Hospital Cleveland EastComment on above:Performed By: #### [address]38 ####[place] [address], [facility] FACILITYLymphocytes/100 WBC Auto (Bld)39.8 %Normal 20.0-45.0The [facility] Hospital Cleveland EastComment on above:Performed By: #### 83702 ####[address] [place] [address], [facility] Auto Entitic mass (RBC)27.8 wqTgwpfr94.0-33.0The [facility] Cleveland EastComment on above:Performed By: #### [address]1044 ####[place] [address], [facility] Auto mass conc (RBC)33.7 g/gWAboxpq13.0-35.0The [facility] Cleveland EastComment on above:Performed By: #### 00146 ####[address] [place] [address], [facility] Auto Entitic volume (RBC)82.5 fLNormal 82.0-98.0The [facility] Cleveland EastComment on above:Performed By: #### 26892 ####[address] [place] [address], [facility] FACILITYMonocytes Auto #/vol (Bld)1.0 10*3/uLNormal0.1-1.0The [facility] Cleveland EastComment on above:Performed By: #### 43316 ####[address] [place] [address], USAMONOS8.7 %Normal 5.0-12.0The [facility] Hospital Cleveland EastComment on above:Performed By: #### 50494 ####[facility] [place] [address], [facility] FACILITYNeutrophils/100 WBC Auto (Bld)49.5 %Sykuto53.0-72.0The [facility] Cleveland EastComment on above:Performed By: #### 00259 ####[facility] [place] [address], USANucleated RBC/100 WBC Ratio (Bld)0 %Normal0-0The [facility] Cleveland EastComment on above:Performed By: #### 49957 ####[facility] [place] [address], USAPLAT HCA640 10*3/fTBsnxnf965-313Pzd [facility] Cleveland EastComment on above:Performed By: #### 80684 ####[facility] [place] [address], [facility] RBC Auto #/vol (Bld)5.61 10*6/uLNormal4.20-5.70The [facility] Cleveland EastComment on above:Performed By: #### 65600 ####[facility] [place] [address], [facility] FACILITYWBC Auto #/vol (Bld)11.61 10*3/uL High4.00-10.60The [facility] Cleveland EastComment on above:Performed By: #### 51766 ####[facility] [place] [address], [facility] FACILITYCardiovascular Lab Reporton 71-10-1222Bunktsevvtocjq Lab Report [facility] Patient Name: [facility] [place] [place] MR #: [id number] Physician: Scotty eTrry,Department of M.D.Medicine Service Date: 12/22/2017Division of Birthdate: 1Cardiology Room #: 3CD [id number] CardiovascularTexas Health Arlington Memorial Hospitaler[address].[place], [place] [address]Nlumz Fax Cardiovascular Laboratory ReportFINAL IMPRESSIONS:1. Patent stent in the right coronary artery.2. 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 Mild plaque disease of the left circumflex coronary a rtery.RECOMMENDATIONS:1. The patient will proceed to transesophageal echocardiography plus or minuscardioversion given the new onset of atrial fibrillation and unstable angina symptoms.2. Aggressivecardiovascular risk factor modification.3. Optimization medical management; aspirin, beta juliana, s tatin, and angiotensin-converting enzyme inhibitor are indicated.4. Further recommendations deferred to the inpatient services.PROCEDURES: Limited femoral angiography, bilateral selective coronaryangiography, placement of a 6-Peruvian MynxGrip closure device.METHODS: After risks, benefits, and alternatives were explained, writteninformed consent was obtained. The patient was prepped and draped in usualsterile fashion over both groins. Using 1% lidocaine solution, localinfiltration anesthesia was achieved. Using modified Seldinger technique,access to the right common femoral artery was obtained.A 6-Peruvian 11 cmsheath was inserted. Baseline femoral angiography was performed.Bilateral selectivecoronary angiography was performed using JL4 and DL6beyblxxlw. After reviewing the images, it was elected to conclude theprocedure.A 6-Peruvian MynxGrip closure device was deployed per protocol achievingoptimal hemostasis. Overall, the patient tolerated the procedure well.There were no overt complicat ions. [facility].FINDINGS: Hemodynamics:AO: 136/73 (98).LEFT VENTRICULOGRAPHY: This was not performed.CORONARY ARTERIES: Left main coronary artery. This arises from the leftcoronary cusp. It bifurcates into the left anterior descending and leftcir cumflex coronary artery, it shows mild plaque.Left anterior [...] angina, new onset atrial fibrillation.Electronically Signed by:Scotty Terry M.D. 12/24/2017 02:38 P Scotty Terry M.D.Date Dict: 12/22/2017/01:46 P/Scotty Terry M.D.Date Trans: 12/22/2017 04:28 P/mmoDN_JN:[id number]: Julio Patton D.O. [address] [place] [address] [address] [facility] [address] Doris Pérez D.O. [address] [facility] A [facility] [address]HhfpljQilCommunity Regional Medical CenterHEMOGLOBIN A1Con 26-12-6171Jabgxwd mass pgqy725 mg/bWIoek46-283Wzw [facility] Cleveland EastComment on above:Order Comment: Yes: Add to Previous draw if ablePerformed By: #### 15053 ####[facility] [facility] [place] [address], [facility] FACILITYHemoglobin A1c/Hemoglobin.total mass fraction (Bld)7.2 %High4.0-6.0 The [facility] Hospital Cleveland EastComment on above:Order Comment: Yes: Add to Previous draw if ablePerformed By: #### 26850 ####[facility] [facility] [place] [address], USAMAGNESIUM BLOODon 96-76-3954Ccpvvcexc mass conc2.4 mg/dLNormal1.9-2.7The [facility] Cleveland EastComment on above:Order Comment: Yes: Add to Previous draw if able Performed By: #### 42924, 19105 ####[facility] [facility].[address]PROTHROMBIN TIMEon 58-40-4080HZX Coag RelTime (PPP)1.07 {INR}Normal0.91-1.16The [facility] Hospital Cleveland EastComment on above:Result Comment: ACCCP RECOMMENDED INR FOR WARFARIN THERAPY CONDITION INRPROPHYLAXIS OF VENOUS THROMBOSIS 2-3(HIGH-RISK SURGERY)TREATMENT OF VENOUS THROMBOSIS 2-3TREATMENT OF PULMONARY EMBOLISM 2-3PREVENTION OF SYSTEMIC EMBOLISM: 2-3 ACUTE MYOCARDIAL INFARCTION TISSUE HEART VALVES VALVULAR HEART DISEASE ATRIAL FIBRILLATION RECURRENT SYSTEMIC EMBOLISMMECHANICAL HEART VALVE 2.5-3.5 FROM: ORAL ANTICOAGULANTS. MECHANISM OF ACTION, CLINICALEFFECTIVENESS, AND OPTIMAL THERAPEU TIC RANGE. [id number];108:231S-246S.Performed By: #### 66035, [address] ####[place] [address] [facility].[address] Prothrombin time (PT) Coag time (PPP)13.9 hVvvwph58.3-14.8The [facility] Hospital Cleveland EastComment on above:Result Comment: ALL RESULTS MUST BE INTERPRETED WITH RESPECT TO BLOOD DRAWING ARTIFACTOR DILUTION ERROR OF ANTICOAGULANT AT THE TIME OF SAMPLING.Performed By: #### 98471, 70870 ####[place] [address] [place] [address], [facility] TROPONIN-Ion 61-60-3799Ysgjvsjx I.cardiac mass conc0.01 ng/mLNormal0.00-0.04The [facility] Cleveland EastComment on above:Order Comment: No: Do not add to previous drawResult Comment: REFERENCE RANGES: 0.00 - 0.04 ng/ml NORMAL 0.05 - 0.50 ng/ml INDETERMINATE > 0.50 ng/ml CONSISTENT WITH AN M.I.Performed By: #### 34092, 55692 ####[facility] [place] [address], USATroponin I.cardiac mass conc0.01 ng/mLNormal0.00-0.04 The [facility] Hospital Cleveland EastComment on above:Order Comment: No: Do not add to previous drawResult Comment: REFERENCE RANGES: 0.00 - 0.04 ng/ml NORMAL 0.05 - 0.50 ng/ml INDETERMINATE > 0.50 ng/ml CONSISTENT WITH AN M.I. Performed By: #### 34799, 41184, 67177 ####[place] [address] [facility] [place] [address], USATSH WITH REFLEXon 12-22-2017 Thyrotropin Qn2.93 MICRO-IU/MLNormal0.34-5.60The [facility] Cleveland EastComment on above:Performed By: #### 72230, 48585, 24607 ####[place] [address] [place] [address], USAUFH HEPARIN ASSAYon 72-45-1535UQTVELSEXSMJZG HEPARIN0.49 IU/mLNormal0.30-0.70The [facility] Cleveland EastComment on above:Result Comment: Rivaroxaban and Apixaban will interfere with the anti Xa assay used tomonitor UFH and LMWH.Performed By: #### 66672, 04702, 50887 ####[place] [address] [place] [address], USAUNFRACTIONATED HEPARIN0.69 IU/mLNormal0.30-0.70The [facility] Cleveland EastComment on above:Result Comment: Rivaroxaban and Apixaban will interfere with the anti Xa assay used tomonitor UFH and LMWH. Performed By: #### 38322 ####[facility] Vital Signs Date TimeVital SignValuePerforming GqkqmixivVhkwrsxb17-12-9578 13:28-0400Body .26 cmBenjamin Ball DO Work Phone: [phone]10-28-2025 13:28-0400 Body mass index (BMI) [Ratio]34.9 kg/s4Ltkfsymn Ball DO Work Phone: [phone])[address] [place], [place] 3165010-28-2025 13:28-0400 Body audlrywnbkp22.4 [degF]Julio Ball DO Work Phone: [phone])[address] [place], [place] 3165010-28-2025 13:28-0400 Body yggwwp630.5 kgBenjamin Ball DO Work Phone: [phone] [place], [place] 3165010-28-2025 13:28-0400 Diastolic blood luzhtpsg13 mm[Hg]Julio Ball DO Work Phone: [phone] [place], [place] 3165010-28-2025 13:28-0400 Heart rate88 /minBenjamin Ball DO Work Phone: [phone] [place], [place] 3165010-28-2025 13:28-0400 SaO2% (BldA) [Mass fraction]95 %Julio Ball DO Work Phone: [phone])[address] [place], [place] 3165010-28-2025 13:28-0400 Systolic blood fszvjayd945 mm[Hg]Julio Ball DO Work Phone: [phone])[address]07-17-2025 14:32-0400 Body elcihh926.4 cmAllison Petznick DO Work Phone: noParkland Health CenterUzddbyoaau67-36-7022 14:32-0400Body mass index (BMI) [Ratio]35.62 kg/r0Cvtebhm Petznick DO Work Phone: NOParkland Health CenterTibwbrlycg09-80-0133 14:32-0400Body temperature 97.81 [degF]Korin Petznick DO Work Phone: [facility]'sHlaerecpsr94-94-5492 14:32-0400Body itlqgw256.05 kgAllison Petznick DO Work Phone: [phone] [place], [place] [address]Hltayojevp55-59-1401 14:32-0400Diastolic blood efvjqtyo03 mm[Hg]Korin Petznick DO Work Phone: [facility] John'sTnvwebzxug47-60-0899 14:32-0400Heart rate76 /min Korin Petznick DO Work Phone: 1(294)039-[address] [place], [place] [address]Cqrlgyjoul05-65-2752 14:32-0539XyD9% (BldA) [Mass fraction]94 %Korin Petznick DO Work Phone: [facility] John'sVuxkixaitm37-94-7398 14:32-0400Systolic blood sinagsuu133 mm[Hg]Korin Petznick DO Work Phone: 1(279)619-[address] [place], [place] [address]Ggkgakjgki51-34-2241 09:07-0400Body .7 cmOliver Fitzgerald MD Work Phone: [phone]05-29-2025 09:07-0400Body mass index (BMI) [Ratio]35.73 kg/v0ZcjhkbsOliver Fitzgerald MD Work Phone: 1(866)[facility]05-29-2025 09:07-0400Body fnhqixheqsi16.3 [degF]Oliver Fitzgerald MD Work Phone: 1(745)[facility]05-29-2025 09:07-0400Body ehfrqp074.59 kgOliver Fitzgerald MD Work Phone: 1(779)[facility]05-29-2025 09:07-0400Diastolic blood aljdktlh64 mm[Hg]Oliver Fitzgerald MD Work Phone: 1(412)[facility]05-29-2025 09:07-0400Heart rate 76 /minOliver Fitzgerald MD Work Phone: 1(825)[facility]05-29-2025 09:07-8302JpT1% (BldA) [Mass fraction]96 %Oliver Fitzgerald MD Work Phone: 1(380)[facility]05-29-2025 09:07-0400Systolic blood ntagsrrj821 mm[Hg]Oliver Fitzgerald MD Work Phone: 1(555)[facility]05-07-2025 08:33-0400Body bvlusj511.26 [facility]05-07-2025 08:33-0400Body mass index (BMI) [Ratio]35.7 kg/y7AgeeukodjProtestant Deaconess Hospital05-07-2025 08:33-0400Body .76 kgPro[facility]05-07-2025 08:33-0400Diastolic blood vmigvuur35 mm[Hg][facility] 11-02-2024 08:33-0400Heart rate87 /[facility] 11-02-2024 08:33-0400Respiratory rate16 /[facility] 11-02-2024 08:33-0400Systolic blood mm[Hg][facility]04-30-2025 09:11-0400Body .26 cmPro[facility]04-30-2025 09:11-0400Body mass index (BMI) [Ratio]35.7 kg/w7VhjupjivbProtestant Deaconess Hospital04-30-2025 09:11-0400Body .82 kgPro[facility] Hospital04-30-2025 09:11-0400Diastolic blood qxnyueib22 mm[Hg] [facility]04-30-2025 09:11-0400Heart rate85 /[facility]04-30-2025 09:11-0400Respiratory rate12 /[facility]04-30-2025 09:11-0400Systolic blood viruqmje417 mm[Hg] [facility]03-03-2025 11:23-0500Body miteso979.26 cm [facility]03-03-2025 11:23-0500Body mass index (BMI) [Ratio]35.2 kg/g7OytpqecrwProtestant Deaconess Hospital03-03-2025 11:23-0500Body rctnobpoiwh29.6 [degF][facility]03-03-2025 11:23-0500Body uenyfp504.06 kgProtestant [facility]aconess Hospital03-03-2025 11:23-0500Diastolic blood ownatzap30 mm[Hg][facility]03-03-2025 11:23-0500 Heart rate84 /[facility]03-03-2025 11:23-0500 Respiratory rate18 /[facility]03-03-2025 11:23-0500 SaO2% (BldA) [Mass fraction]95 %[facility]03-03-2025 11:23-0500Systolic blood rtxycgiv225 mm[Hg][facility] 05-16-2024 14:01-0500Body sovzvk686.4 cmAllison Petznick DO Work Phone: 1([phone] [address] John'sPasxlyzvva77-28-9078 14:01-0500Body mass index (BMI) [Ratio]36.07 kg/r2Vkeppta Petznick DO Work Phone: 1(431)[facility] [address] John'sXcwwiywqtu24-42-5402 14:01-0500Body temperature 97.7 [degF]Korin Petznick DO Work Phone: 1(620)[address] [place], [place] [address]11-18-2024 14:01-0500Body goowim356.41 kgAllison Petznick DO Work Phone: 1(926)[facility] [place], [place] [address]Ohejsbuxtn32-30-3982 14:01-0500Diastolic blood algicqio60 mm[Hg]Korin Petznick DO Work Phone: 1(900)[facility] [place], [place] [address]Myfclvmzsh18-69-7115 14:01-0500Heart rate79 /min Korin Petznick DO Work Phone: 1(453)[facility] [place], [place] [address]Ltkrrbkfmn68-42-4542 14:01-0602LuX7% (BldA) [Mass fraction]97 %Korin Petznick DO Work Phone: 1(637)[facility] [place], [place] [address]Ronttusstt96-58-3595 14:01-0500Systolic blood mm[Hg]Korin Petznick DO Work Phone: 1(780)[address] [place], [place] [address]201209-30-2024 10:39-0400Body kzzmby343.26 cmPro[facility]acon[facility] Hospital09-30-2024 10:39-0400Body mass index (BMI) [Ratio]34.6 kg/f8FlzwsyhzzProtestant Deaconess Hospital09-30-2024 10:39-0400Body ucukwn328.31 kgProtestant [facility]aconess Hospital09-30-2024 10:39-0400Diastolic blood ydleidxo45 mm[Hg][facility]09-30-2024 10:39-0400 Heart rate81 /[facility]09-30-2024 10:39-0400 Respiratory rate12 /[facility]09-30-2024 10:39-0400 Systolic blood iajnfpdn026 mm[Hg][facility]05-30-2024 09:21-0400Diastolic blood qpeenjwe16 mm[Hg]Olievr Fitzgerald MD Work Phone: 1(094)[facility]05-30-2024 09:21-0400Heart rate 76 /minOliver Fitzgerald MD Work Phone: 1(121)[facility]05-30-2024 09:21-0400Systolic blood bzhlfeal302 mm[Hg]Oliver Fitzgerald MD Work Phone: 1(698)[facility]05-30-2024 09:20-0400Body mass index (BMI) [Ratio]33.76 kg/e7RqpukxuOliver Fitzgerald MD Work Phone: 1(501)[facility]05-30-2024 09:20-0400Body .69 kgOliver Fitzgerald MD Work Phone: 1(517)[facility]05-30-2024 09:20-1159UbR6% (BldA) [Mass fraction]98 %Oliver Fitzgerald MD Work Phone: 1(933)[facility]04-25-2024 09:21-0400Body qbygil378.3 cmOliver Fitzgerald MD Work Phone: 1(501)[facility]04-25-2024 09:21-0400Body mass index (BMI) [Ratio]34.7 kg/s5MnovewvOliver Fitzgerald MD Work Phone: 1(194)[facility]04-25-2024 09:21-0400Body oeuerm103.59 kgOliver Fitzgerald MD Work Phone: 1(858)[facility]04-25-2024 09:21-0400Diastolic blood ebgyiljt89 mm[Hg]Oliver Fitzgerald MD Work Phone: 1(520)[facility]04-25-2024 09:21-0400Heart rate 79 /Valeriy Fitzgerald MD Work Phone: 1(396)[facility]04-25-2024 09:21-0400Systolic blood gjjqvzny713 mm[Hg]Oliver Fitzgerald MD Work Phone: 1(756)[facility]03-27-2024 11:07-0400Body xgdgex378.26 cmPro[facility]acon[facility]03-27-2024 11:07-0400Body mass index (BMI) [Ratio]35.3 kg/o6WrnhoalpdProtestant Deaconess Hospital03-27-2024 11:07-0400Body xnsykq673.46 kgPro[facility]ant [facility]aconess Hospital03-27-2024 11:07-0400Diastolic blood mm[Hg][facility] 09-23-2023 11:07-0400Heart rate82 /[facility] 09-23-2023 11:07-0400Respiratory rate16 /[facility] 09-23-2023 11:07-0400Systolic blood auhdzhas374 mm[Hg][facility]09-27-2023 11:00-0400Body aqccwt593.26 cmBenStockpulsemin Ball Other noYinYangMap Other 09-27-2023 11:00-0400Body mass index (BMI) [Ratio] 34.64 kg/g9Edxeoaul Ball Other noYinYangMap Other 09-27-2023 11:00-0400Body iqqfdd028.41 kgBenjamin Ball Other [employer] Other 09-27-2023 11:00-0400Diastolic blood wltenjrf31 mm[Hg] Julio Patton Other [facility] [employer] Other 09-27-2023 11:00-0400Respiratory rate12 /minJulio Patton Other [facility] [employer] Other 09-27-2023 11:00-0400Systolic blood aturhemg119 mm[Hg] Julio Patton Other [facility] ABSMaterials Other Encounters Encounter DateEncounter TypeCare ProviderFacilityStart: 04-25-2025 End: 15-89-2388cpacpienrgEgrwfdtk Ball DO Work Phone: -[facility] ClinicStart: 04-25-2025 End: 98-04-2940Cmanikr encounter procedureBelucaerna Patton DO-[facility] Work Phone: Start: 72-86-6768ffogwdzgyiXONIU GRUBBUniAdena Health Systemtart: 19-16-1351ymrgjqnoouYIEPChillicothe VA Medical Centertart: 01-17-2025 End: 75-14-6421whmfdnxudmTDXMChillicothe VA Medical Centertart: 01-12-2025 End: 83-05-6403Cxxxcx outpatient visit 25 minutesAllomid Mercedes DO Work Phone: [facility] FM 230Comment on above:Type 2 diabetes mellitus with stage 3a chronic kidney disease, with long-term current use of insulin (HCC) (Primary Dx); Type 2 diabetes mellitus with other circulatory complications (HCC); Class 2 severe obesity due to excess calories with serious comorbidity and body mass index (BMI) of35.0 to 35.9 in adult ([facility]-HCC)Start: 01-12-2025 End: 31-72-0025kxgauennznPYYIVQZ M PETZNICKNot AvailableStart: 01-12-2025 End: 71-33-3570Ixzlic flowsheetKorin Mercedes DO Work Phone: [facility] FM 230Start: 01-12-2025 End: 13-58-8447Fvxsqn flowsheetKorin Mercedes DO Work Phone: [facility] FM 230Start: 01-11-2025 End: 90-90-4228Cdsabxhtm encounterAllomid Mercedes DO Work Phone: [facility] FM 230Comment on above:Appointment ConfirmationStart: 12-19-2024 End: 58-51-7699Wwdsencev Result EncounterMohamed Cliff Fitzgerald MD Work Phone: [facility] External Department UnsolicitedStart: 12-19-2024 End: 81-62-7500Rnvxhjmev Result EncounterMohamed Cliff Fitzgerald MD Work Phone: [facility] External Department UnsolicitedStart: 11-24-2024 End: 19-92-2809Kbzafu outpatient visit 25 minutesMohamed Janet Fitzgerald MD Work Phone: [facility] Vascular SurgeryComment on above:Swelling of both lower extremities (Primary Dx); Severe claudication; Bilateral carotid bruitsStart: 69-36-3860esqqtkbkupZWNHAultman Orrville Hospitaltart: 11-02-2024 End: 08-83-6905qobijwdpttCsxcelwcuOhioHealth O[facility] Work Phone: Start: 11-02-2024 End: 92-16-0393Dvoidqo encounter procedureCommunity Health Physician GroupFulton County Health Center Work Phone: Start: 10-26-2024 End: 89-90-4931xcvcxtknqxLbehkojjpOhioHealth O'Bleness Hospital Work Phone: Start: 10-26-2024 End: 19-22-2797Ngpkgeq encounter procedureCommunity Health Physician GroupFulton County Health Center Work Phone: Start: 17-30-5554ulfrkqazkgFDURAultman Orrville Hospitaltart: 09-15-2024 End: 31-61-6154hfnedcshkbSAKUZKW M JESSICANAVNot AvailableStart: 43-91-4831Tkg- patient / Non-visitCommunity Health Physician Group-[facility] Work Phone: Start: 08-29-2024 End: 55-44-8038dvimftezykDmjgvkcehOhioHealth O'Bleness Hospital Work Phone: Start: 08-29-2024 End: 09-89-4830Tyzzksv encounter procedureCommunity Health Physician Group-[facility] Work Phone: Start: 06-07-2024 End: 62-45-1655fztsjwhjnfLVTGAultman Orrville Hospitaltart: 05-16-2024 End: 31-00-1455Cjnrct outpatient visit 25 minutesKorin Mercedes DO Work Phone: [facility] FM 230Comment on above:Class 2 severe obesity due to excess calories with serious comorbidity and body mass index (BMI) of 36.0 to 36.9 in adult (CMS/HCC) (Primary Dx); Type 2 diabetes mellitus with other circulatory complications (CMS/HCC); Type 2 diabetes mellitus with stage 3a chronic kidney disease, with long-term current use of insulin ([facility]) (CMS/[facility])Start: 05-16-2024 End: 26-00-6866wseqkwablyMLWOLVW M PETZNICKNot AvailableStart: 03-28-2024 End: 57-55-3247jgytvxizghUoajlixlbOhioHealth O'Bleness Hospital Work Phone: Start: 03-28-2024 End: 63-95-8204Swdnmzl encounter procedureCommunity Health Physician Group-[facility] Work Phone: Start: 01-67-9472Ndsyqji encounter [facility] Hospitaltart: 11-26-2023 End: 34-63-7041Slpyur outpatient visit 15 minutesOliver Fitzgerald MD Work Phone: [facility] Comment on above:Swelling of both lower extremities (Primary Dx)Start: 10-22-2023 End: 71-61-9401Ucfcjw outpatient visit 15 minutesOliver Fitzgerald MD Work Phone: [facility] Comment on above:Severe claudication ([facility]-HCC) (Primary Dx); Swelling of both lower extremitiesStart: 09-23-2023 End: 09-39-4783dncgmwtofuLwzkvgbilOhioHealth O'Bleness Hospital Work Phone: Start: 09-23-2023 End: 06-54-6648Sudhchx encounter procedureCommunity Health Physician Group-[facility] Work Phone: Start: 05-27-2023 End: 44-95-7463guplomugwkNgsaybto Ball Other noYinYangMap Other Start: 45-63-4272Tmgsikceq encounterBenjamin BallFPG [facility] ClinicStart: 04-28-2023 End: 05-61-2814btgshzxswuJccyxecp Ball Other no[employer] Other Start: 65-31-9147Ckaxqeunk encounterBenjamin BallFPG [facility] ClinicStart: 04-27-2023 End: 64-02-2451pjfrumxoglAqzidbwb Ball Other [employer] Other Start: 57-54-2155Knxmyfrsg encounterBenjamin BallFPG [facility] ClinicStart: 04-20-2023 End: 92-72-4307ojlpsqrrmjTuwimsxr Ball Other noY[employer] Other Start: 91-05-4653Ifmxoiffm encounterBenjamin BallFPG [facility] ClinicStart: 03-27-2023 End: 93-04-2764rpatlncphyMjizaphp Ball Other noYinYang[employer] Other Start: 21-30-3703Jooixchle encounterBenjamin BallFPG [facility] ClinicStart: 03-26-2023 End: 99-24-8017mmpbkoobjsUpwzldgh Ball Other [employer] Other Start: 76-99-8858Eeusjnpvi encounterBenjamin [facility] ClinicStart: 03-25-2023 End: 13-25-2033qrdwmpwgwiWuxflhwe Ball Other [employer] Other Start: 90-41-1713Uobmzco encounter procedureBenjamin [facility] ClinicStart: 02-16-2023 End: 97-58-7020fozccfwjkiGbweeazd Ball Other [employer] Other Start: 07-13-0990Tgblhuncf encounterBenalvamin [facility] ClinicStart: 12-03-2022 End: 11-68-7068eanxlzxemaKpsjqaro Ball Other [employer] Other Start: 62-00-4895Imeimdkgw encounterBenalvamin [facility] ClinicStart: 10-24-2022 End: 26-34-2163fpfladlrtzZFKM CHACKOFacility:J8Fuhme: 09-19-2022 End: 96-76-1019tspppyxldmXykvrdvz Ball Other [employer] Other Start: 61-10-6565Nylhsvc evaluation of patient and reportBenalvamin [facility]FP[facility] ClinicStart: 09-15-2022 End: 78-24-2216qhmyuypgjhJB JULIO BALLFacility:O8Xuvbq: 09-02-2022 End: 82-95-1978ipplusrajsZTZL CHACKOFacility:D0Azqoa: 07-04-2022 End: 83-84-1994vohugxosygCO JULIO BALLFacility:N7Mpclg: 06-24-2022 End: 88-76-9481ldbjqjdxtfDOAMZBY TUCKERFacility:X7Npxah: 05-07-2022 End: 59-12-7463hgjqtwwaqeCG JULIO BALLFacility:J1Uuzxw: 04-08-2022 End: 50-48-6171jxukymqyerHM JULIO BALLFacility:F5Yoenv: 04-01-2022 End: 53-50-4356kkuwvnfedfUX JULIO BALLFacility:T2Fgnhe: 03-28-2022 End: 84-09-1721ewuipzzosxQM JULIO BALLFacility:S4Oyemu: 02-07-2022 End: 22-52-3393chxukjhzwhTN JULIO BALLFacility:L4Mhajh: 01-28-2022 End: 66-33-4364ieajwydicsUP JULIO BALLFacility:H3Kxkjj: 01-21-2022 End: 46-33-9496rwjnuhmrdqHE JULIO BALLFacility:O5Kkhof: 12-02-2021 End: 72-46-0084ooaddbjthmVF JULIO BALLFacility:A1Nlfzi: 04-03-4837Imiyj health examinationBekurt Patton Other [facility] [employer] Other Start: 06-04-2018 End: 27-16-4335Sbhheybmus and management of inpatientBENERNA BALLFacility:[facility] Start: 12-22-2017 End: 99-43-9221Ruogacjgvf and management of inpatientLORINMEKA AINSLEY SQUIRES Facility:[facility] Procedures DateProcedureProcedure DetailPerforming ClinicianStart: 66-89-2976Mfklpqndra glycosylated y9lSnupwlhKorin Mercedes DO Work Phone: Start: 77-97-3753CXWAPAMSL BLOOD PRESSUREMohamed Cliff iFtzgerald MD Work Phone: Start: 77-16-8179Amusvnuhkq glycosylated g4hDoxqqlxKorin Mercedes DO Work Phone: Start: 54-41-4684Jvclfgqrlhq of Cardiac Rhythm, Single GUNNAR WALLACEStart: 53-28-8247CLXRBXXZCQV OF MULTIPLE CORONARY ARTERIES USING OTH CONTRASTEHAB A ELTAHAWYStart: 37-46-9381Puucskflnrd of Cardiac Rhythm, SingleANIL MATHEWStart: 58-21-9768GQPKBFHNRCCYNVF OF RIGHT AND LEFT HEART, TRANSESOPHAGEALANIL MATHEWStart: 47-87-4316Sdhzrjmio for malignant neoplasm of colonJulio Patton Other Start: 50-79-1280Xwhoebxiy for malignant neoplasm of prostateJulio Patton Other Depression screeningJulio Patton Other Plan of Treatment DateCare ActivityDetailAuthorStart: 05-18-2025 End: 50-18-9241Kdhrepa encounter dtzalztlf29/20/2025 2:45 PM EST Office Visit [facility] [address] [facility] [address] [place] [phone] Korin Mercedes, [address] [facility] 230 [place] [address] [facility] 230Start: 70-77-3621Kpgtostyuj A1c measurementDiabetes: Hemoglobin F7LAWHZ HealthcareStart: 90-29-4841Trdmbrujg vaccinationProLima City Hospitalca Health SystemStart: 01-12-2025 End: 89-35-8317Gphoxdk encounter procedureN[facility]S [facility]LE[facility] 230Comment on above:Type 2 diabetes mellitus with other circulatory complications (HCC)Start: 12-28-2024 COVID-19 Vaccine ( season)COVID-19 Vaccine () [facility] SystemStart: 11-72-5569Mlydsvkpsq A1c measurementDiabetes: Hemoglobin Q7QDHKW HealthcareStart: 12-01-2024 End: 71-88-4112Gusmief encounter elevqcmsc62/05/2025 9:00 AM EDT Office Visit [facility] [address] [place] [address] Oliver Fitzgerald MD [address], [address] [address] [facility] Wound CareStart: 86-88-6266Hryhj BMI ScreeningAdult BMI Screening [facility] SystemStart: 93-91-1550Eosdjbz ScreeningTobacco Screening [facility] SystemStart: 11-24-2024 End: 19-03-4232VN Carotid arteries - bilateralVas carotid duplex bilateral Vascular Ultrasound Routine Swelling of both lower extremities Severe c laudication ([facility]) Bilateral carotid bruits Expected: 11/24/2024, Expires: 11/24/2025[facility] Work Phone: Comment on above:Expected: 11/24/2024, Expires: 11/24/2025Start: 11-24-2024 End: 25-02-9486PV.doppler Extremity arteries - bilateral for physiologic artery studyVas art doppler lwr bilat mult lev/PVR Vascular Ultrasound Routine Swelling of both lower extremities Severe claudication ([facility]) Bilateral carotid bruits Expected: 11/24/2024, Expires: 11/24/2025ProMet[facility] SystemComment on above:Expected: 11/24/2024, Expires: 11/24/2025Start: 73-68-5955Sgzin BMI ScreeningAdult BMI ScreeningWexner Medical Center SystemStart: 11-64-1768Sdmgbro ScreeningTobacco ScreeningAtrium Health [facility] Point Medical Centertart: 09-15-2024 End: 01-26-2709Ouclbrb encounter uihdqagaq35/20/2025 2:15 PM EDT Office Visit [facility] [address] [facility] [address] [place] [phone] Korin Mercedes, DO [address] [facility] [address] [place] [address] [facility] 230Start: 83-46-3803Zyyrigsmen A1c measurementDiabetes: Hemoglobin X7IMDSFMercy Hospital St. John'sStart: 71-22-3009Sazbmmizt vaccinationInfluenza VaccineAtrium Health [facility] Point Medical Centertart: 11-05-2023 End: 19-10-6654Rulcoht encounter vsfxlokuo69/09/2024 1:20 PM EDT Office Visit [facility] [address] [place] [address] Oliver Fitzgerald MD [address], [address] [address] [facility] Wound CareStart: 10-22-2023 End: 48-51-9321XM.doppler Extremity arteries - bilateral for physiologic artery studyVas art doppler lwr bilat mult lev/PVR Vascular Ultrasound Routine Severe claudication ([facility]) Expected: 10/22/2023, Expires: 10/21/2024[facility] Work Phone: Comment on above:Expected: 10/22/2023, Expires: 10/21/2024Start: 01-33-8644Xnkxd screening for proteinDiabetes: Urine Protein ScreeningS[facility] HealthcareStart: 90-76-3304JWpG,Tdap and Td Vaccines (2 - Td or Tdap)DTaP,Tdap and Td Vaccines (2 - Td or Tdap)[facility] Centertart: 37-29-2634xrngaaweckKxxnidirqjErrthdrm:P8Wmwpv: 81-18-3394Yfzgaannjolymo of varicella zoster vaccineZoster (Shingles) Vaccine (2 of 3)[facility] SystemStart: 66-54-6280Bmyf Risk ScreeningFall Risk ScreeningWexner Medical Center SystemStart: 69-59-9666Hmvog screening for proteinDiabetes: Urine Protein ScreeningMercy Hospital St. John'sStart: 25-86-2713Pyvbb BMI Follow Up PlanAdult BMI Follow Up PlanProKettering Memorial Hospitaltart: 49-71-4915Xslsghywdb Screening Depression ScreeningWexner Medical Center SystemStart: 84-81-8934Jxkvdysz screening Diabetes: Retinopathy ScreeningSAN JUAN [facility]OSPITAL HealthcareStart: 01-22-1941Medicare Annual Wellness (AWV)Medicare Annual Wellness (AWV)[facility] HealthcareStart: 1940 Medicare Annual Wellness VisitMedicare Annual Wellness VisitJoint Township District Memorial HospitalComprehensive metabolic 1999 panel - Serum or PlasmaProtestant Deaconess HospitalComprehensive metabolic 1999 panel - Serum or PlasmaGlendale Research Hospital Immunizations Immunization DateImmunizationNotesCare HrqcridnPbgznsxm53-09-2509wvbynqyam, high dose seasonal, preservative-freeProtestant Deaconess Hospital09-30-2024 influenza virus vaccine, unspecified formulationMohamed Amilcar MD Work Phone: [facility] HospitalHkprvc31-31-9769xgtkziflm virus vaccine, unspecified formulationProtestant Deaconess Hospital09-27-2023 influenza, high dose seasonal, preservative-freeBepeefrancisco Stevo Other noYinYangMap Other 11-971208-86-5820AUIBW-46 Pfizer (Pediatric)Julio Patton Other [facility]11-04-2022influenza virus vaccine, split virus (incl. purified surface antigen)Julio Patton Other [employer] Other [id number] virus vaccine, unspecified formulationProtestant Deaconess Hospital11-04-2022Influenza, High-dose Seasonal, Quadrivalent, Preservative FreeAllison Jesus DO Work Phone: [facility] John'sMkewyzolgy75-91-2884XPPDI-26 Vaccine Pfizer - Documentation Purposes OnlyJulio Patton Other [facility]09-24-2021influenza virus vaccine, split virus (incl. purified surface antigen)Julio Patton Other [employer] Other [id number] virus vaccine, unspecified formulationProtestant Deaconess Hospital09-14-2020influenza virus vaccine, split virus (incl. purified surface antigen)Julio Patton Other [employer] Other [id number] virus vaccine, unspecified formulationProtestant Deaconess Hospital10-04-2019influenza virus vaccine, split virus (incl. purified surface antigen)Julio Patton Other [employer] Other 354194-33-1430owxnvrxiy virus vaccine, unspecified formulationProtestant Deaconess Hospital09-11-2018influenza virus vaccine, split virus (incl. purified surface antigen)Julio Patton Other [place] [employer] Other [id number] virus vaccine, unspecified formulationProtestant Deaconess Hospital09-11-2018Seasonal trivalent influenza vaccine, adjuvanted, preservative freeAllison Petznick DO Work Phone: noParkland Health CenterDbrbqhrvpy12-16-6716onpndiejb virus vaccine, split virus (incl. purified surface antigen)Julio Patton Other [place] [employer] Other [id number] virus vaccine, unspecified formulationProtestant Deaconess Hospital10-03-2017influenza, high dose seasonal, preservative-freeAllison Petznick DO Work Phone: no[employer] Nufevqcxwt35-88-9671kgvywgmkk virus vaccine, split virus (incl. purified surface antigen)Julio Patton Other [place] [employer] Other 100583-75-3587plbhhvnww virus vaccine, unspecified formulationProtestant Deaconess Hospital10-20-2016influenza, high dose seasonal, preservative-freeAllison Petznick DO Work Phone: noParkland Health CenterQchbnqzskj73-52-6159ibmlxjwogehx conjugate vaccine, 13 valentBenjafrancisco Patton Other [facility]03-24-2015zoster vaccine, liveAllison Petznick DO Work Phone: noParkland Health CenterMlsnqwtank69-46-0298drejpf vaccine, unspecified formulationMolynnette Fitzgerald MD Work Phone: [facility] SystemQuality Practice [facility] HospitalKvjcjg56-66-3681ihlxgqa and diphtheria toxoids, adsorbed, preservative free, for adult use (5 Lf of tetanus toxoid and 2 Lf of diphtheria toxoid)Julio Patton Other [facility]05-15-2013 pneumococcal polysaccharide vaccine, 23 valentBenjamin Stevo Other [facility] Payers DatePayer CategoryPayerPolicy ID2022MedicaidAETNA MEDICARE ADVANTAGE [id number] 2022MedicareAETNA MEDICARE AETNA MEDICARE PLAN (PPO) [id number] 2021-Present [phone] [address] [place] [id number] Medicare HMOAETNA MEDICARE [id number] [id number] [id number] 2.0.1.866882.3.57[id number] 2..1.855637.3.57[id number] 2.16.840.1.014525.3.57[id number] 2.16.840.1.683007.3.57[id number] 2.16.840.1.604693.3.57[id number] 2.16.840.1.803835.3.57[id number] 2.16840.1.490034.3.579.[id number] 2.16840.1.946091.3.57[id number] 2.840.1.948737.3.57[id number] 2.16840.1.647398.3.57[id number] 2.840.1.178065.3.57[id number] 2.16840.1.248027.3.57[id number] 2.840.1.514587.3.57[id number] 2.16840.1.258942.3.579.2.67158-15-8714Tcpuvgm8792170 2.16840.1.278402.3.57[id number] 2.16840.1.158297.3.579.2.59202-62-5882Hdtakuv4176373 2.16840.1.717169.3.57[id number] 2..840.1.216345.3.57[id number] 2.16.840.1.510207.3.579.2.111538-58-2104Uhxqyhr0975924 2..840.1.525[id number] Health [id number] Self-paySelf [id number] Social History DateTypeDetailFacilityUnknown if ever smokedShallotte [employer] Other Start: 11-12-2023 End: 64-44-9327Xpb Assigned At [facility] [employer] Other Start: 09-23-2023 End: 24-92-1795Brgtnmx smoking status NHISNever smoked tobacco (finding) [facility] Hospitaltart: 38-48-5762Vfi Assigned At [facility] HospitalMalACMC Healthcare Systemtart: 11-12-2023 End: 90-86-1428Rdxfmaj smoking status NHISEx-smokerNOMS HealthcareHistory of tobacco useCurrent smokerNOMS HealthcareHistory of tobacco useCigarette Smoker [facility] HealthcareStart: 09-22-8814Hdavztx use and exposureSmokeless tobacco non-userNOMS HealthcareStart: 63-31-8057Xjemkmrnu beverage intakeLifetime non- drinker (finding)[facility] HealthcareStart: 11-12-2023 End: 40-87-8627Kkbvkfq of Social functionProWoodland Medical Center Health SystemHow often to you have a drink containing alcohol?NeverNOMS HealthcareHow many standard drinks containing alcohol do you have on a typical day?Patient does not drinkCincinnati VA Medical Center [employer] SystemStart: 89-91-7435Ekk assigned at birthNot on fileCincinnati VA Medical Center [employer] SystemStart: 40-96-9542Luwvnsc smoking status NHISTobacco smoking consumption unknownProLima City Hospitalca Health SystemStart: 10-22-2023 End: 71-31-2883Iygrxcxnm beverage intakeDeferWexner Medical Center SystemStart: 05-17-2020 End: 24-03-8306MuxNjem (finding)[facility]itt[facility] Hospitaltart: 41-82-7235Jstgkuz CommentQuit awhile back [facility] SystemStart: 09-15-2024 End: 21-90-4108Qmrwcmcjp beverage intakeCurrent drinker of alcohol (finding)[facility] John'sStart: 40-26-0659Nxgnkcg Commentvery [facility] Medical Equipment Procedure CodeEquipment CodeEquipment Original TextEquipment IdentifierDates Inject 1 each under the skin in the morning and 1 each at noon and 1 each in the evening and 1 eachbefore bedtime.[id number]: 48-59-4411Gpzada 1 each under the skin [id number]: 09-18-2024 Functional Status RbcvBejseqktiaBcsxifTpotlvdd50-36-4183Sdgkdbt Health Questionnaire 2 item (PHQ- 2) [Reported][facility] Clinical Notes 11-27-2017 to 01-17-2025 Note Date & OfquAbdhLsczappu90-47-2914 NoteUT Electrophysiology Consult Note Reason for visit: follow up , s/p atrial lead dislodgment with extraction of old lead and reimplantation of new lead 07/08/2022 , s/p DCCV at [facility] for afib 01/17/2025 Patient state he hasn't been feeling to good, patient states he has chest congestion, with a non productive cough. Increased shortness of breath. Patient states he is on an ATB. Patient denies leg swelling, chest pain, palpitations, or racing heart. Patient had a device check done today which revealed that he is 100% RV paced and his underlying greater sinus bradycardia at 50 beats and he conducts one-to-one at that time. Pacing at 60 beats a minute leads to AV block which may be the reason why he is 100% RV paced. There were approximately 10 episodes of atrial fibrillation with the longest one noted on 10/13/2024 which lasted 23 hours. He continues to express shortness of breath which has been a constant problem for him even in the past. I do not see any recent echocardiogram except for the one that was done in January 01, 2023 which showed normal EF but a significantly dilated RV with reduced RV function with poor visualization of tricuspid valve and to assess the TR. 06/07/24 Denies chest pain, palpitations, lightheadedness/syncope, and [...] in the atrial channel. he does have [place] conduction and management of the device he had significant sinus node dysfunction with sinus bradycardia in the 40s with [place] QRS. however he does have AV Wenckebach [...] Fatigue+ Prior HPI: Yajaira Barroso is a 84 y.o. year old with past medical history of Afib was admitted to [facility] and was noted to have bradycardia. initial plans for cardioversion was aborted and he underwent a dual-chamber Biotronik pacemaker implant by Dr. Armenta on 05/06/22. subsequently he was advised to have a cardioversion done as an outpatient. today presented to [facility] for cardioversion and at that time I [...] / REPLACE / REMOVE PACEMAKER SH: Social Drivers of Health Tobacco Use: Medium Risk (01/17/2025) Patient History Smoking Tobacco Use: Former Smokeless Tobacco Use: Unknown Passive Exposure: Not on file Alcohol Use: Not At Risk (11/12/2023) Received from [facility] Healthcare AUDIT-C Frequency of Alcohol Consumption: Never Average Number of Drinks: Patient does not drink Frequency of Binge Drinking: Never Financial Resource Strain: Not on file Food Insecurity: No Food Insecurity (11/24/2024) Received from [facility] Hunger Screening Within the past 12 months [...] on file Intimate Partner Violence: Unknown (08/20/2023) [place] Safety & Environment Fear of Current or Ex-Partner: Not on file Emotionally Abused: (more content not included)...[facility]07-22-2025 NoteRefer to note belowUnAshtabula [facility] Medical Center 01-[facility]-20[facility] Evaluation note* Diagnosis Benign prostatic hyperplasia with urinary frequency- Primary Type 2 diabetes mellitus with stage 3a chronic kidney disease, with long-term current use of insulin (HCC) Severe obesity with body mass index (BMI) of 35.0 to 35.9 and comorbidity ([facility]-H[facility]) Type 2 diabetes mellitus with other circulatory complications (HCC)- Primary Type 2 diabetes mellitus with stage 3a chronic kidney disease, with long-term current use of insulin (HCC) Severe obesity with body mass index (BMI) of 35.0 to 35.9 and comorbidity (CMS-HCC) Class 2 severe obesity due to excess calories with serious comorbidity and body mass index (BMI) of36.0 to 36.9 in adult ([facility]-H[facility])- Primary Type 2 diabetes mellitus with other circulatory complications (HCC) Type 2 diabetes mellitus with stage 3a chronic kidney disease, with long-term current use of insulin (HCC) Type 2 diabetes mellitus with stage 3a chronic kidney disease, with long-term current use of insulin (HCC)- Primary Type 2 diabetes mellitus with other circulatory complications (HCC) Class 2 severe obesity due to excess calories with serious comorbidity and body mass index (BMI) of36.0 to 36.9 in adult ([facility]-H[facility]) Type 2 diabetes mellitus without complications (HCC) Type 2 diabetes mellitus with stage 3a chronic kidney disease, with long-term current use of insulin (HCC)- Primary Type 2 diabetes mellitus with other circulatory complications (HCC) Class 2 severe obesity due to excess calories with serious comorbidity and body mass index (BMI) of35.0 to 35.9 in adult ([facility]-H[facility]) documented in this encounter [facility]'sOlnrwtgnvs04-83-7479 History of Present illness Narrative* Korin Mercedes DO - 01/12/2025 8:47 PM EDTAssociated Problem(s): Type 2 diabetes mellitus with other circulatory complications (HCC) During the appointment today all pertinent labs, [...] have any problems or questions. Yajaira Barroso control is stable overall. , Will [...] out what foods are spiking his bg. * Korin Mercedes DO - 01/12/2025 2:15 PM EDT Images from the original note were not included. Yajaira Barroso is a 84 y.o. male presents with chief complaint of Diabetes HPI: Diabetes Mellitus Follow-up: Yajaira Barroso is here for follow-up evaluation of diabetes mellitus. The initial diagnosis of diabetes was made 08/2021 Diabetes complications: none Hx of diabetes medications tried: fiasp He has been checking his blood glucose with a Dexcom CGM - READER- on a daily basis. Bg run smooth most of the time but he spikes at least 4-5 times a week at different times of the day. He is not sure what foods are doing this and tries to eat healthy most of the time. He never eats out. Last A1c: 7.9 (09/15/24) Last eye exam: Current concerns include: BG levels: similar to last visit Diet: none- more salads, eggs and toast for breakfast Drinks: water, tea with milk, diet pop Exercise: none Hypoglycemia: none SUBJECTIVE: PROBLEM LIST SOCIAL ALLERGIES: Patient Active Problem List Diagnosis Type 2 diabetes mellitus with stage 3a chronic kidney disease, with long-term current use of insulin ([facility]) Class 2 severe obesity due to excess calories with serious comorbidity and body mass index (BMI) of35.0 to 35.9 in adult ([facility]) Stage 3a chronic kidney disease ([facility]) Neuropathy Myocardial infarction (HCC) Essential hypertension Elevated cholesterol Coronary artery disease involving [place] coronary artery of [place] heart without angina pectoris Benign prostatic hyperplasia with lower urinary tract symptoms Paroxysmal atrial fibrillation (HCC) Type 2 diabetes mellitus with other circulatory complications (HCC) Social History Tobacco Use Smoking status: Former Types: Cigarettes Smokeless tobacco: Never Vaping Use Vaping status: Never Used Substance Use Topics Alcohol use: Yes Comment: very rare Drug use: Never Allergies Allergen Reactions Bee Venom Swelling Synopsis SmartLink 01/12/2025 14:44 01/02/2025 00:00 Antidiabetic medications Insulin Glargine 24 Units Daily SC -Discontinued Insulin Glargine 24 Units Daily SC 24 Units Daily SC Labs [facility] HEMOGLOBIN A1C/HEMOGLOBIN.TOTAL:MFR:PT:BLD:QN: 8.3 Outpatient prescription Medication marked as long-term The ASCVD Risk score (Melva LEONARD, et al., 2019) failed to calculate for the following reasons: The 2019 ASCVD risk score is only valid for ages 40 to 79 Risk score cannot be calculated because patient has a medical history suggesting prior/existing ASCVD REVIEW OF SYMPTOMS: Review of Systems Constitutional: Negative for appetite change, fatigue and unexpected weight change. Eyes: Negative for visual disturbance. Respiratory: Negative for cough, shortness of breath and wheezing. Cardiovascular: Negative for chest pain, palpitations and leg swelling. Neurological: Negative for numbness. Endocrine: Negative for polydipsia, polyphagia and polyuria. OBJECTIVE: 01/12/2025 2:32 PM 09/15/2024 2:11 PM 05/16/2024 2:01 PM Vitals BMI 35.62 kg/m2 36.83 kg/m2 36.07 kg/m2 Systolic 122 128 122 Diastolic 64 76 64 Heart Rate 76 74 79 Temp 97.8 F 97.9 F 97.7 F Height (in) 5' 8.25 5' 8.25 5' 8.25 Weight (lb) 236 244 239 Visit Report Report Report Report Physical Exam Constitutional: General: He is not in acute distress. Appearance: Normal appearance. He is obese. Cardiovascular: Rate and Rhythm: Normal rate and [...] with long-term current use of insulin (HCC) - Primary Class 2 severe obesity due to excess calories with serious comorbidity and body mass index (BMI) of35.0 to 35.9 in adult ([facility]) Type 2 diabetes mellitus with other circulatory complications (HCC) During the appointment today all pertinent labs, [...] they have any problems or questions. Yajaira Dharmesh control is stable overall. , Will stay [...] out what foods are spiking his bg. Relevant Orders POCT glycosylated hemoglobin (Hb A1C) docked device (Completed) Follow up in about 4 months (around 05/15/2025) for Recheck. Patient's Medications New Prescriptions No [...] MG TABLET Take 40 mg by mouth every other day GABAPENTIN (NEURONTIN) 300 MG CAPSULE Take 300 mg by mouth Daily INSULIN GLARGINE (LANTUS SOLOSTAR) 100 UNIT/ML PEN INJECT 24 UNITS UNDER THE SKIN DAILY INSULIN PEN NEEDLE (BD PEN NEEDLE ALVARADO U/F) 32G X 4 MM MISC Inject 1 each under the skin Daily POLYETHYLENE GLYCOL, PEG, 3350 (MIRALAX) 17 G PACKET Take 17 g by mouth in the morning. ROSUVASTATIN (CRESTOR) 40 MG TABLET Take 40 [...] with the patient today. documented in this encounterMercy Hospital St. John'[id number] Telephone encounter Note* Telephone Encounter - Josiane Marsh - 01/11/2025 3:05 PM EDT LVM appointment reminder [facility]'[id number] Miscellaneous Notes* Telephone Encounter - Josiane Marsh - 01/11/2025 3:05 PM EDT LVM appointment reminder documented in this encounterMercy Hospital St. John'[id number] Evaluation + Plan note* Assessment & Plan Note - Oliver Fitgzerald MD - 11/24/2024 9:35 AM EDT Associated Problem(s): Bilateral carotid bruits Carotid duplex ultrasound [facility]05-29-2025 Evaluation + Plan note* Assessment & Plan Note - Oliver Fitzgerald MD - 11/24/2024 9:35 AM EDTAssociated Problem(s): Severe claudication We will get PVR [facility]05-29-2025 Evaluation + Plan note* Assessment & Plan Note - Oliver Fitzgerald MD - 11/24/2024 9:35 AM EDTAssociated Problem(s): Swelling of both lower extremities Continue compression stockings leg elevation exercise [facility]05-29-2025 Miscellaneous Notes* Assessment & Plan Note - Oliver Fitzgerald MD - 11/24/2024 9:35 AM EDTAssociated Problem(s): Bilateral carotid bruits Carotid duplex ultrasound * Assessment & Plan Note - Oliver Fitzgerald MD - 11/24/2024 9:35 AM EDT Associated Problem(s): Severe claudication We will get PVR * Assessment & Plan Note - Oliver Fitzgerald MD - 11/24/2024 9:35 AM EDT Associated Problem(s): Swelling of both lower extremities Continue compression stockings leg elevation exercise documented in this encounterJoint [facility] History of Present illness Narrative* Oliver Fitzgerald MD - 11/24/2024 9:00 AM EDT Images from the original note were not included. To: JULIO PATTON, DO HPI: Yajaira Barroso is a 84 y.o. male with History of carotid stenosis and carotid bruit did not have testing. He has claudication he also didnot have testing. His claudication is still the same. He has bilateral lower extremity swelling. Heuses compression stockings intermittently. I discussed with him best medical therapy walking exercise recheck PVR compression stockings leg elevation and getting carotid duplex ultrasound. Review of Systems: Review of Systems Constitutional: [...] in the morning and 4 mg before bedtime. ELIQUIS 5 mg tablet Take 1 tablet [...] INSULIN 100 unit/mL (3 mL) insulin pen lisinopriL (PRINIVIL,ZESTRIL) 10 mg tablet polyethylene glycol [...] History: Past Medical History: Diagnosis [place] Diabetes mellitus with diabetic polyneuropathy, without long-term current use of insulin [place] Ingrown nail Paronychia of toenail, left PVD (peripheral vascular disease) St[place] Past Surgical History: No past surgical history on file. Social and Family History: Social History Socioeconomic History Marital status: Unknown Spouse name: Not on file Number of children: Not on file Years of education: Not on file Highest education level: Not on file Occupational History Not on file Tobacco Use Smoking status: Former Types: Cigarettes Smokeless tobacco: Not on file Tobacco comments: Quit awhile back Vaping Use Vaping status: Never Used Substance and Sexual Activity Alcohol use: Defer Drug use: Never Sexual activity: Defer Other Topics Concern Not on file Social History Narrative Not on file Social Drivers of Health Financial Resource Strain: Not on file Food Insecurity: No Food Insecurity (11/24/2024) Hunger Screening Food Insecurity - Worry: Never True Food Insecurity - Inability: Never True Transportation Needs: Not on file Physical Activity: Not on file Stress: Not on file Social Connections: Not on file Interpersonal Safety: Unknown (08/20/2023) Received from [facility] Safety & Environment Fear of Current or Ex-Partner: Not on file Emotionally Abused: Not on file Physically Abused: Not on file Sexually Abused: Not on file Physically or Sexually Abused: Not on file Housing Instability: Not on file No family history on file. Recent Labs: Recent and relative labs were reviewed and interpreted and contributed to the assessment and plan below. Vitals: BP 130/76 (BP Site: Right Arm, BP Postition: Sitting, BP CUFF SIZE: M (9-13 inches)) Pulse 76 Temp 36.3 C (97.3 F) (Temporal) Ht 172.7 cm (5' 8 ) Wt 106.6 kg (235 lb) SpO2 96% BMI 35.73 kg/m Body mass index is 35.73 kg/m . Physical Exam: Physical Exam Constitutional: [...] Assessment and Plan: Problem List Severe claudication Current Assessment & Plan We will get PVR Swelling of both lower extremities - Primary Current Assessment & Plan Continue compression stockings leg elevation exercise Bilateral carotid bruits Current Assessment & Plan Carotid duplex ultrasound Yajaira was seen today for 1 year follow up. Diagnoses and all orders for this visit: Swelling of both lower extremities Severe claudication Bilateral carotid bruits Oliver Fitzgerald MD, JANINE, RPVI, FSVS, FACS [facility] This note was created with the assistance of a speech recognition program. While intending to generate a timely document that accurately reflects the content of the visit, no guarantee can be provided that every grammatical or spelling mistake has been or will be identified or corrected. Thank you for your understanding. documented in this encounterJoint [facility] Evaluation note* Diagnosis Onset Date Resolution Status Admit Date [facility] 11:18amBenign prostatic hyperplasia with lower urinary tract symptomsacuteMarch 2024 11:18amChronic venous insufficiency of lower extremityacuteAug 2024 11:18amElevated cholesterolacuteTrumbull Regional Medical Center 2024 11:18amObesityacuteTrumbull [facility] Medical Center 2024 11:18amParoxysmal atrial fibrillationacute August 29, 2024 11:18amPrimary hypertensionacuteAug 2024 11:18amType 2 diabetes mellitus with hyperglycemiaacuteAug 2024 11:18amStage 3a chronic kidney diseasedeletedAug 2024 11:18am [facility] Work Phone: 1(415) 534-548103-03-2025 Evaluation note* Diagnosis Onset Date Resolution Status Admit Date ASHD (arteriosclerotic heart disease) [facility] 20[facility] 11:18amBenign prostatic hyperplasia with lower urinary tract symptomsacuteHunterdon Medical Centerch 2024 11:18amChronic venous insufficiency of lower extremityacuteTrumbull [facility] 2024 11:18amElevated cholesterolacuteTrumbull [facility] 2024 11:18amObesityacuteTrumbull [facility] 2024 11:18amParoxysmal atrial fibrillationacute August 29, 2024 11:18amPrimary hypertensionacuteMarch 2024 11:18amType 2 diabetes mellitus with hyperglycemiaacuteMarch 2024 11:18amStage 3a chronic kidney diseasedeletedAugch 2024 11:18amChronic venous insufficiencyacute October 26, 2024 8:55amType 2 diabetes mellitus with hyperglycemiaacuteApril 2024 8:55amUlcer of left lower legacuteApril 2024 8:55amAbrasion, left lower leg, subsequent encounteracuteMay 2024 8:27amChronic venous insufficiencyacuteMay 2024 8:27amType 2 diabetes mellitus with hyperglycemiaacuteMay 2024 8:27am [facility] Work Phone: 1(921) 764-205312-10-2024 NoteUT Electrophysiology Consult Note Reason for visit: follow up , s/p atrial lead dislodgment with extraction of old lead and reimplantation of new lead 07/08/2022 , s/p DCCV at [facility] for afib 06/07/24 Denies chest pain, palpitations, [...] in the atrial channel. he does have [place] conduction and management of the device he had significant sinus node dysfunction with sinus bradycardia in the 40s with [place] QRS. however he does have AV Wenckebach [...] medical history of Afib was admitted to [facility] and was noted to have bradycardia. initial plans for cardioversion was aborted and he underwent a dual-chamber Biotronik pacemaker implant by Dr. Armenta on 05/06/22. subsequently he was advised to have a cardioversion done as an outpatient. today presented to [facility] for cardioversion and at that time I [...] Tobacco Use: Medium Risk (05/16/2024) Received from [facility] Patient History Smoking Tobacco Use: Former Smokeless Tobacco Use: Never Passive Exposure: Not on file Alcohol Use: Not At Risk (11/12/2023) Received from [facility], [facility] [employer] AUDIT-C Frequency of Alcohol Consumption: Never Average Number of Drinks: Patient does not drink Frequency of Binge Drinking: Never Financial Resource Strain: Not on file Food Insecurity: No Food Insecurity (11/26/2023) [facility] [employer] Hunger Screening Within the past 12 months [...] on file Intimate Partner Violence: Unknown (08/20/2023) [place] Safety & Environment Fear of Current or Ex-Partner: Not on file Emotionally Abused: Not on file Physically Abused: Not on file Sexually Abused: Not on file Physically or Sexually Abused: Not on file Depression: Not at risk (05/16/2024) [facility] PHQ-2 Patient Health Questionnaire-2 Score: 0 Housing [...] aspart (NovoLOG, Fiasp) 100 (more content not included)...[facility]11-18-2024 History of Present illness Narrative* Korin Mercedes, - 05/16/2024 8:46 PM ESTAssociated Problem(s): Type 2 diabetes mellitus with other circulatory complications (CMS/HCC) During the appointment today all pertinent labs, [...] have to do a lot of cooking. * Korin Mercedes DO - 05/16/2024 2:00 PM EST Images from the original note were not included. Yajaiar Barroso is a 83 y.o. male presents with chief complaint of Diabetes HPI: Diabetes Mellitus Follow-up: Yajaira Barroso is here for follow-up evaluation of diabetes mellitus. The initial diagnosis of diabetes was made 08/2021 Diabetes complications: none He has been checking his blood glucose with a Dexcom CGM - READER- on a daily basis. Running smoothbut high in the 180-220 range most of the day. Tends to spike up more in the evening. Last A1c: 7.6 (11/12/23) Last eye exam: Current concerns include: States bg levels are higher than last visit. He has been eating more fast food. He has been visiting his a couple times a day in the [place]. States he doesn't care about eating healthy. He only eats out about 3-4 days a week. Usuallygets a burger from [employer]. Diet: none Drinks: water, tea with milk and black coffee Exercise: none Hypoglycemia: none SUBJECTIVE: PROBLEM LIST SOCIAL ALLERGIES: Patient Active Problem List Diagnosis Type 2 diabetes mellitus with stage 3a chronic kidney disease, with long-term current use of insulin (HCC) ([facility]) Class 2 severe obesity due to excess calories with serious comorbidity and body mass index (BMI) of36.0 to 36.9 in adult ([facility]) Stage 3a chronic kidney disease (HCC) ([facility]) Neuropathy Myocardial infarction ([facility]) Essential hypertension ([facility]) Elevated cholesterol ([facility]) Coronary artery disease involving pyramid lake coronary artery of pyramid [place] heart without angina pectoris ([facility]) Benign prostatic hyperplasia with lower urinary tract symptoms Paroxysmal atrial fibrillation ([facility]) Type 2 diabetes mellitus with other circulatory complications ([facility]) Social History Tobacco Use Smoking status: Former [...] with long-term current use of insulin (HCC) ([facility]) Relevant Orders POCT glycosylated hemoglobin (Hb A1C) docked device (Completed) Class 2 severe obesity due to excess calories with serious comorbidity and body mass index (BMI) of36.0 to 36.9 in adult ([facility]) - Primary Type 2 diabetes mellitus with other circulatory complications ([facility]) During the appointment today all pertinent labs, [...] with the patient today. documented in this encounterMercy Hospital St. John'[id number] History of Present illness Narrative* Oliver Fitzgerald MD - 11/26/2023 9:40 AM EDT Images from the original note were not included. To: JULIO PATTON DO HPI: Yajaira Barroso is a 83 y.o. male with Lower extremity swelling and pain. He had PVR that shows mildocclusive disease bilaterally..No tissue loss or rest pain. [...] History: Past Medical History: Diagnosis Date [place] Diabetes mellitus with diabetic polyneuropathy, without long-term current use of insulin [place] Ingrown nail Paronychia of toenail, left PVD (peripheral vascular disease) [place] Past Surgical History: No past surgical history [...] Interpersonal Safety: Unknown (08/20/2023) Received from [facility] [place] Safety & Environment Fear of [...] CUFF SIZE: M (9-13 inches)) Pulse 76 Wt103.7 kg (228 lb 9.6 oz) SpO2 98% [...] Oliver Fitzgerald MD, JANINE, RPVI, FSVS, FACS [facility] This note was created with the assistance of a speech recognition program. While intending to generate a timely document that accurately reflects the content of the visit, no guarantee can be provided that every grammatical or spelling mistake has been or will be identified or corrected. Thank you for your understanding. documented in this encounterJoint [facility]04[facility]24 Evaluation + Plan note* Assessment & Plan Note - Oliver Fitzgerald MD - 10/22/2023 9:56 AM EDT Associated Problem(s): Swelling of both lower extremities We will prescribe compression stockings after making sure he does not have severe arterial occlusive disease. [facility]04-25-2024 Miscellaneous Notes* Assessment & Plan Note - Oliver Fitzgerald MD - 10/22/2023 9:56 AM EDTAssociated Problem(s): Swelling of both lower extremities We will prescribe compression stockings after making sure he does not have severe arterial occlusive disease. * Assessment & Plan Note - Oliver Fitzgerald MD - 10/22/2023 9:55 AM EDT Associated Problem(s): Severe claudication (CMS-HCC) We will get a PVR and follow-up after the PVR. documented in this encounterJoint Township District [facility] Hospital04-25-2024 Evaluation + Plan note* Assessment & Plan Note - Oliver Fitzgerald MD - 10/22/2023 9:55 AM EDT Associated Problem(s): Severe claudication (CMS-HCC) We will get a PVR and follow-up after the PVR. [facility]04-25-2024 History of Present illness Narrative* Oliver Fitzgerald MD - 10/22/2023 9:20 AM EDT Images from the original note were not [...] History: Past Medical History: Diagnosis Date A-fib ([facility]) Diabetes mellitus with diabetic polyneuropathy, without long-term current use of insulin [place] Ingrown nail Paronychia of toenail, left PVD (peripheral vascular disease) [place] Past Surgical History: No past surgical history [...] Interpersonal Safety: Unknown (08/20/2023) Received from [facility] Safety & Environment Fear of Current or [...] Oliver Fitzgerald MD, JANINE, RPVI, FSVS, FACS [facility] This note was created with the assistance of a speech recognition program. While intending to generate a timely document that accurately reflects the content of the visit, no guarantee can be provided that every grammatical or spelling mistake has been or will be identified or corrected. Thank you for your understanding. documented in this encounterMount Carmel Health SystemQuality Practice [facility] [id number] Evaluation note* Encounter Date Diagnosis Assessment Notes Treatment Notes Treatment Clinical Notes Feb, Stage 3a chronic kidney disease (ICD-10 - N18.31) [employer] Other 09-27-2023 Evaluation note* Encounter Date Diagnosis [...] reviewed and amended by provider signed below. Feb,SHD (arteriosclerotic heart disease) (ICD-10 - I25.10)This patient is stable without activity related CP, dyspnea or lightheadedness. They are instructedto continue exercise and AHA diet plan. Continue secondary prevention measures. Feb,rimary hypertension (ICD-10 - I10)This patient is instructed to consume a healthy, low-fat, low-salt diet. They are also encouraged to continue exercise to achieve/maintain a normal BMI. Feb,Type 2 diabetes mellitus with hyperglycemia (ICD-10 - E11.65)This patient is following a comprehensive diabetic treatment [...] Microalbumin, Dilated eye exam and Foot exam Feb,Elevated cholesterol (ICD-10 - E78.00)Instructed on diet and exercise with continued statin therapy.Discussed the beneficial effects of lo wering cholesterol in reducing the risk for cerebrovascular and cardiovascular disease. Feb,Nocturia (ICD-10 - R35.1) Feb,enign prostatic hyperplasia with lower urinary tract symptoms (ICD- 10 - N40.1)Symptoms tolerable w/ Proscar and Flomax. f/u Feb,hronic venous insufficiency (ICD-10 - I87.2)Avoid salt and elevate lower extremities, support stockings, inspect legs and feet daily for blisters and ulcerations. Feb,Screening PSA (prostate specific antigen) (ICD-10 - Z12.5) Feb,Long term (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 insulin (ICD-10 - Z79.4) Feb,High risk medication use (ICD-10 - Z79.899) Dec,Paroxysmal atrial fibrillation (ICD-10 - I48.0)Paroxysmal atrial fibrillationThis patient is in NSR or rate controlled. This patient is anticoagulated to prevent thromboembolicevents. They are maintaining regular scheduled appts with their clinical lab clerk. [employer] Other 03-24-2023 Evaluation note* Encounter Date Diagnosis Assessment Notes Treatment Notes Treatment Clinical Notes Aug, Dysuria (ICD-10 - R30.0) [employer] Other 06-06-2022 NotePROCEDURE: XR HIP LT 2 3V W PELVIS COMPARISON: None. HISTORY: Pain of left hip joint FINDINGS: BONES:No acute fracture or dislocation. Minimal bilateral hip osteoarthropathy. SOFT TISSUES:Negative. No visible soft tissue swelling. EFFUSION:None visible. OTHER: Electronic device projects over the right hemipelvis IMPRESSION: No acute abnormality Electronically authenticated by: NICOLE THOMAS Date: 2021-12-02 20:59[facility]06[facility] History general Narrative - Reported* Type Description Date Surgical History Problem Title : Othe r Surgery, Problem Comment : [facility] PTCA/stent RCA 2002 [facility] PTCA/PABLITO RCA 2014[facility] 11/2017Colonoscopy 01/2018, Problem Status : Resolved, Surgical HistoryProblem Title : past surgical history reviewed, Problem Description : past surgical history reviewed, Problem Comment : reviewed - no changes required, Problem Status : Resolved,Surgical HistoryProblem Title : surgical procedures, hx of, Problem Description : surgical procedures, hx of, Problem Comment : [facility] PTCA/stent RCA 2002 [facility] PTCA/PABLITO RCA 2014 [facility] 11/2017 Colonoscopy 01/2018, Problem Status : Active,Surgical HistoryProblem Title : surgical procedures, hx of, Problem Description : surgical procedures, hx of, Problem Comment : [facility] PTCA/stent RCA 2002 [facility] PTCA/PABLITO RCA 2014 [facility] 11/2017, Problem Status : Resolved,Surgical HistoryProblem Title : surgical procedures, hx of, Problem Description : surgical procedures, hx of, Problem Comment : [facility] PTCA/stent RCA 2002 [facility] PTCA/PABLITO RCA 2014, Problem Status : Resolved,Surgical HistoryProblem Title : surgical procedures, hx of, Problem Description : surgical procedures, hx of, Problem Comment : [facility] PTCA/stent RCA 2002, Problem Status : Resolved, [employer] Other Evaluation noteNo InformationNort ABSMaterials Other Evaluation note* Diagnosis Onset Date Resolution Status ASHD (arteriosclerotic heart disease) acuteBenign prostatic hyperplasia with lower urinary tract symptomsacuteChronic kidney diseaseacuteElevated cholesterolacuteHypertensionacuteParoxysmal atrial fibrillationacute [facility] Work Phone: Evaluation note* Diagnosis Onset Date Resolution Status ASHD (arteriosclerotic heart disease) acuteBenign prostatic hyperplasia with lower urinary tract symptomsacuteChronic venous insufficiency of lower extremityacuteElevated cholesterolacuteMedicare annual wellness visit, subsequentacuteObesityacuteParoxysmal atrial fibrillation acutePrimary hypertensionacuteStage 3a chronic kidney diseaseacuteType 2 diabetes mellitus with hyperglycemiaacute [facility] Work Phone: Evaluation note* Diagnosis Benign prostatic hyperplasia with urinary frequency- Primary Type 2 diabetes mellitus with stage 3a chronic kidney disease, with long-term current use of insulin (HCC) ([facility]) Severe obesity with body mass index (BMI) [...] serious comorbidity and body mass index (BMI) of36.0 to 36.9 in adult (CMS/HCC)- Primary Type 2 diabetes mellitus with other circulatory complications (CMS/HCC) Type 2 diabetes mellitus with stage 3a chronic kidney disease, with long-term current use of insulin (HCC) ([facility]/HCC) documented in this encounter [facility] HealthcareEvaluation note* Diagnosis Severe claudication ([facility])- Primary Swelling of both lower extremities documented [facility]* Diagnosis Swelling of both lower extremities- Primary documented in this encounter [facility]* Diagnosis Onset Date Resolution Status Admit Date ASHD (arteriosclerotic heart disease) acuteMarch 2024 11:18amBenign prostatic hyperplasia with lower urinary tract symptomsacuteMar2024 11:18amChronic venous insufficiency of lower extremityacuteMar2024 11:18amElevated cholesterolacuteMar2024 11:18amParoxysmal atrial fibrillationacuteAugust 29, 2024 11:18amPrimary hypertensionacuteMar2024 11:18amStage 3a chronic kidney diseaseacute August 29, 2024 11:18amType 2 diabetes mellitus with hyperglycemiaacuteMar2024 11:18amObesitydeletedHunterdon Medical Centerch 2024 11:18am [facility] Work Phone: Evaluation note* Diagnosis Severe claudication- Primary Swelling of both lower extremities Swelling of both lower extremities- Primary Severe claudication Bilateral carotid bruits [facility]* Diagnosis Onset Date Resolution Status Admit Date ASHD (arteriosclerotic heart disease) acuteOctober 2024 1:22pmChronic kidney diseaseacuteOctober 2024 1:22pmChronic venous insufficiency of lower extremityacuteOctober 2024 1:22pmElevated cholesterolacuteOctober 2024 1:22pmMedicare annual wellness visit, subsequentacuteOctober 2024 1:22pmObesityacuteOctbreckinridge memorial hospital 2024 1:22pmParoxysmal atrial fibrillationacuteOctober 2024 1:22pmPrimary hypertensionacuteOctober 2024 1:22pmType 2 diabetes mellitus with hyperglycemiaacuteOctober 2024 1:22pm [facility] Work Phone: History general Narrative - Reported* Type Description Date Medical History Type 2 diabetes mellitus with hy perglycemia Medical HistoryParoxysmal atrial fibrillationMedical HistoryChange in bowel habitMedical HistoryWeight lossMedical HistoryColon polypMedical History ConstipatedMedical HistoryASHD (arteriosclerotic heart disease)Medical History Primary hypertensionMedical HistoryElevated cholesterolMedical HistoryBenign prostatic hyperplasia with lower urinary tract symptoms, symptom details unspecifiedMedical HistoryChronic venous insufficiencySurgical HistoryLHC PTCA/STENT [id number] HistoryLHC PTCA/PABLITO [id number] [id number] Surgical [id number] HistorySEE SURGICAL [facility] [employer] Other History general Narrative - Reported* Type Description Date Medical History Type 2 diabetes mellitus with hy perglycemia Medical HistoryParoxysmal atrial fibrillationMedical HistoryChange in bowel habitMedical HistoryWeight lossMedical HistoryColon polypMedical History ConstipatedMedical HistoryASHD (arteriosclerotic heart disease)Medical History Primary hypertensionMedical HistoryElevated cholesterolMedical HistoryBenign prostatic hyperplasia with lower urinary tract symptoms, symptom details unspecifiedMedical HistoryChronic venous insufficiencyMedical HistoryCKDSurgical HistoryLHC PTCA/STENT [id number] HistoryLHC PTCA/PABLITO [id number] [id number] ZxjwemlWAAZJZQUOOJ2419Axcbpqexgaiyken HistorySEE SURGICAL [employer] Other InstructionsNot on filedocumented in this encounter [facility] SystemInstructionsNot on filedocumented in this encounter [facility] SystemInstructionsNot on filedocumented in this encounter [facility] SystemReason for referral (narrative)No reason for referral information availablePromedica Bay Park Hospital Work Phone: Summary Purpose Family History No Family History Records FoundNo Family History Records FoundNo Family History Records FoundNo Family History Records Found Advance Directives Advance Directive Response Recorded Date/ Time Advance Directives No February 16, 2018 4:29pm Advance Directive Response Recorded Date/ Time Advance Directives No February 16, 2018 3:29pm Advance Directive Response Recorded Date/ Time Advance Directives No October 26 025 8:55am Hospital Course Note MR#: [id number] [facility] Pt[facility] Name: Yajaira Barroso Admitted: 12/22/2017 Discharged: 12/23/2017 Date of : 1940 Physician: Jose Hsieh MD DISCHARGE [facility]PR[facility]YL[facility] CARE PHYSICIAN: Dr. Francesca Mishra.CONSULTING PHYSICIAN: [facility].FINAL DIAGNOSES:1. Unstable angina status post cardiac cath.2. New-onset atrial fibrillation, status post cardioversion, sinus rhythm now.SECONDARY DIAGNOSES:1. Essential hypertension.2. Coronary artery disease.3. Unspecified dyslipidemia.HOSPITAL COURSE: This is a pleasant 77[facility] also found to have a new-onset atrialfibrillation. The patient was admitted, seen by Cardiology inconsultation, underwent cardiac catheterization, which revealed a patentright coronary artery stent with minimal coronary artery disease on theanterior descending artery, so the patient was started on medicalmanagement and also underwent cardioversion, which the patient toleratedvery well (more content not included)... Note MR#: [id number] [facility] Yajair[facility] Barroso Admitted: 06/04/2018 Discharged: 06/06/2018 Date of : 1940 Physician: Tonia Mistry MD DISCHARGE SUMMARYDISCHARGE ATTENDING PHYSICIAN: [facility] PHYSICIAN: CHACHO Payan PROBLEMS:1. [...] Visit Admit Date ASHD (arteriosclerotic heart disease) [facility] 2024 11:18am Benign prostatic hyperplasia with lower [...] 11:18am Obesity August 29, 2024 11:1 8am Chief Complaint Admit Date 6 month f/u August 29, 2024 11:1 8am Wound on Lower Leg October 26, 2024 8:5 5am Reason for Visit Admit Date ASHD (arteriosclerotic heart disease) [facility] 2024 11:18am Benign prostatic hyperplasia with lower urinary tract symptoms August 29, 2024 11:18am Chronic venous insufficiency of lower ex tremity August 29, 2024 11:18am Elevated cholesterol August 29, 2024 11: 18am Obesity August 29, 2024 11:1 8am Paroxysmal atrial fibrillation August 11:18am Primary hypertension August 29, 2024 11: 18am Type 2 diabetes mellitus with hyperglyce dhaval August 29, 2024 11:18am Stage 3a chronic kidney disease August 11:18am Chief Complaint Admit Date 6 month f/u August 29, 2024 11:1 8am Wound on Lower Leg October 26, 2024 8:5 5am 1 week f/u November 02, 2024 8:27am Reason for Visit Admit Date ASHD (arteriosclerotic heart disease) [facility] 2024 11:18am Benign prostatic hyperplasia with lower urinary tract symptoms August 29, 2024 11:18am Chronic venous insufficiency of lower ex tremity August 29, 2024 11:18am Elevated cholesterol August 29, 2024 11: 18am Obesity August 29, 2024 11:1 8am Paroxysmal atrial fibrillation August 11:18am Primary hypertension August 29, 2024 11: 18am Type 2 diabetes mellitus with hyperglyce [facility] August 29, 2024 11:18am Stage 3a chronic kidney disease August 11:18am Chronic venous insufficiency October 26, 2024 8:55am Type 2 diabetes mellitus with hyperglyce dhaval October 26, 2024 8:55am Ulcer of left lower leg October 26, 2024 8:55am Abrasion, left lower leg, subsequent enc ounter November 02, 2024 8:27am Chronic venous insufficiency November 02 8:27am Type 2 diabetes mellitus with hyperglyce dhaval November 02, 2024 8:27am Chief Complaint Admit Date wellness April 25, 2025 1 :22pm Reason for Visit Admit Date ASHD (arteriosclerotic heart disease) [facility] 2024 1:22pm Chronic kidney disease April 25 1:22pm Chronic venous insufficiency of lower ex tremity April 25, 2025 1:22pm Elevated cholesterol April 25, 2025 1:22pm Medicare annual wellness visit, subseque nt April 25, 2025 1:22pm Obesity April 25, 2025 1 :22pm Paroxysmal atrial fibrillation March 302024 1:22pm Primary hypertension April 25, 2025 1:22pm Type 2 diabetes mellitus with hyperglyce dhaval April 25, 2025 1:22pm Reason for Referral SpecialtyDiagnoses / ProceduresReferred By ContactReferred To Contact Diagnoses Severe claudication ([facility]) Procedures Vas art doppler lwr bilat mult lev/PVR Oliver Fitzgerald MD [address], [place] [address] Referral IDStatusReasonStart DateExpiration DateVisits RequestedVisits [id number] Review/ Additional Source Comments (unrecognized sect ion and content) No Status Records FoundNo Status Records FoundNo Status Records FoundNo Status Records Found INFORMATION SOURCE (unrecogn ized section and content) DATE CREATED AUTHOR 06/16/2018 [facility] DATE CREATED AUTHOR AUTHOR'S ORGANIZ ATION 10/31/2022 [facility] DATE CREATED AUTHOR AUTHOR'S ORGANIZ ATION 01/16/2025 [facility] DATE CREATED AUTHOR AUTHOR'S ORGANIZ ATION 04/14/2025 [facility] REASON FOR VISIT (unrecogniz ed section and content) ReasonCommentsDiabetesReasonCommentsPADReasonCommentsClaudicationPeripheral Arterial DiseaseBLE noted edema neuropathy symptomsReasonComments1 year follow upReasonOnset DateCommentsAppointment Ainxkgbftcqg29/16/2025 Care Teams (unrecognized sec tion and content) [...] Start: March 28, 2024 End: March 28, 2024Team MemberRelationshipSpecialtyStart DateEnd Date Korin Mercedes DO [address] [facility] [address] [place] [address] PCP - [employer]04/29/22 Julio Patton MD [address] [place] [address] [facility] - [facility] Pe[facility]al Nijklfgt53/10/23Team MemberRelationshipSpecialtyStart Date End Date Julio Patton DO [address] [place], [place] [id number] [facility] - [facility]08/29/22Team MemberRelationshipSpecialtyStart Date End Date Julio Patton DO [address] [place], [place] [phone] [facility] - [facility]08/29/22 Team Status: Inactive Member Role Status Dates Julio Patton DO Primary Care Provide r, Attending Provider Active Start: August 29, 2024 End: August 29, 2024 Team Status: Active Member Role Status Dates Julio Patton DO Primary Care Provide r, Attending Provider Active Start: August 30, 2024 Team Status: Inactive Member Role Status Dates Julio Patton DO Primary Care Provide r, Attending Provider Active Start: October 26, 2024 End: October 26, 2024 Team Status: Inactive Member Role Status Dates Julio Patton DO Primary Care Provide r, Attending Provider Active Start: November 02, 2024 End: November 02, 2024Team MemberRelationshipSpecialtyStart DateEnd Date Julio Patton DO [address] [place] [address] PCP - GeneralInternal Medicine08/29/22Team MemberRelationshipSpecialtyStart Date End Date Korin Mercedes Eliot, DO [address] [place] [address] PCP - [employer]04/29/22 Julio Patton, DO [address] [place] [address] PCP - GeneralInternal Srknqxfa24/10/23Team MemberRelationshipSpecialtyStart Date End Date Korin Mercedes, DO [address] [place] [address] PCP - [employer]04/29/22 Julio Patton, DO [address] [facility] [place] [address] PCP - GeneralInternal Shhlaxdw36/10/23Team MemberRelationshipSpecialtyStart Date End Date Korin Mercedes Eliot, DO [address] [place] [address] PCP - [employer]04/29/22 Julio Patton, DO [address] [facility] [place] [address] PCP - GeneralInternal Kbuonzmr00/10/23Team MemberRelationshipSpecialtyStart Date End Date Korin Mercedes Eliot, DO [address] [place] [address] PCP - [employer]04/29/22 Julio Patton, DO [address] [facility] [place] [address] PCP - GeneralInternal Tpjdwwdm17/10/23 Team Status: Active Member Role/Relationship Status Dates Julio Patton DO Primary Care Provider Active Team Status: Inactive Member Role/Relationship Status Dates Julio Patton DO Primary Care Provider Active Start: April 25, 2025 End: April 25enerna Patton DOAttending ProviderActiveStart: April 25, 2025 End: April 25, 2025 Goals (unrecognized section and content) Goals may [...] BE BASED ON THE PRIMARY CLINICAL RECORDS. [facility] [employer] [facility]. provides no warranty or guarantee of the accuracy or completeness of information in this document.
[2025-04-26 10:45] LABS: Hematocrit 45.5 % (42.0-54.0); Hemoglobin 14.7 g/dL (14.0-18.0); Immature Granulocytes Abs Auto 0.02 10^3/uL (0.00-0.03); Immature Granulocytes Pct Auto 0.2 % (0.0-0.5); Lymphocytes Absolute Auto 2.0 10^3/uL (1.2-3.8); Mean Corpuscular HGB Conc 32.3 g/dL (29.9-35.2); Mean Corpuscular Hemoglobin 28.7 pg (25.9-34.0); Mean Corpuscular Volume 88.9 fL (80.0-94.0); Platelet Count 192 10^3/uL (150-450); Red Blood Count 5.12 10^6/uL (4.70-6.10); White Blood Count 8.2 10^3/uL (4.0-11.0)
[2025-04-26 11:37] LABS: Alanine Aminotransferase 7 U/L (16-63); Albumin Globulin Ratio 0.8; Albumin Level 3.0 g/dL (3.4-5.0); Alkaline Phosphatase 96 U/L (46-116); Anion Gap 12.1; Aspartate Amino Transferase 13 U/L (15-37); Blood Urea Nitrogen 26.0 mg/dL (7.0-18.0); Calcium 8.9 mg/dL (8.5-10.1); Carbon Dioxide 30.4 mmol/L (21.0-32.0); Chloride 102 mmol/L (98-107); Cholesterol 120 mg/dL (<=200); Estimated GFR (African America 48 (>=60 mL/min/1.73m^2); Estimated GFR (Non-African Ame 40 (>=60 mL/min/1.73m^2); Globulin 4.0 g/dL; Glucose 158 mg/dL (74-106); HDL Cholesterol 52 mg/dL (40-60); Potassium 4.5 mmol/L (3.5-5.1); Sodium 140 mmol/L (136-145); Total Protein 7.0 g/dL (6.4-8.2); Triglycerides 110 mg/dL (<=150); VLDL CHOLESTEROL 22.0 mg/dL
[2025-04-26 11:59] LABS: Microalbum Creatinine Ratio Ur 26.9 mg/g (0.0-29.9)
== END 2025-04-26 09:48 | disposition home or self-care (01) ==
LOC: LAB 09:51
PROVIDERS: PCP Internal Medicine; Visit Provider Internal Medicine
DX: I12.9 Hypertensive chronic kidney disease with stage 1 through stage 4 chronic kidney disease, or unspecified chronic kidney disease (principal); N18.32 Chronic kidney disease, stage 3b; E78.00 Pure hypercholesterolemia, unspecified; E11.65 Type 2 diabetes mellitus with hyperglycemia; Z79.4 Long term (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 insulin
CPT/HCPCS: 36415; 80053; 80061; 82043; 82570; 85025

== ENCOUNTER 2025-05-23 11:03 | Outpatient (OUT) | payer MEDICARE, SELFPAY ==
--- OUTSIDE RECORDS SUMMARY | 2025-05-18 14:45 | XMS_ITS | Encounter Summary ---
Author Organization [facility] Address [address] [facility] [place] [address] Care Team Providers Care Freezer Worker Name Role Phone Korin Lee DO Unavailable [phone] Julio Patton DO Primary Care Provider [phone] Reason for Visit * ReasonCommentsDiabetes Encounter Details DateTypeDepartmentCare Team (Latest Contact Info)Wacfezjzxui19/20/2025 2:45 PM ESTOffice Visit [facility] [address] [facility] [address] [place] [phone] Korin Lee, [address] [facility] [address] [place] [address] Class 2 severe obesity due to excess calories with serious comorbidity and body mass index (BMI) of35.0 to 35.9 in adult (Primary Dx); Type 2 diabetes mellitus with stage 3a chronic kidney disease, with long-term current use of insulin (HCC); Type 2 diabetes mellitus with other circulatory complications (HCC) Social History Tobacco UseTypesPacks/DayYears UsedDateSmoking Tobacco: FormerCigarettes [...] drinks on one occasion?Never11/12/2023HQ-2AnswerDate RecordedPatient Health Questionnaire-2 Lbxyy117Sex and Gender InformationValueDate RecordedSex Assigned at BirthNot on fileLegal DyvXmfd8809/10/2022 11:34 PM EDTGender IdentityNot on file Sexual OrientationNot on filedocumented as of this encounter Last Filed Vital Signs Vital SignReadingTime TakenCommentsBlood Vgtewkiz162/6605/18/2025 2:36 PM EST Ajzuj316605/18/2025 2:36 PM EUPTnwiendvbqr24.5 ??C (97.7 ??F)05/18/2025 2:36 PM ESTRespiratory Rate--Oxygen Emrmqudjld58%05/18/2025 2:36 PM ESTInhaled Oxygen Concentration--Zwmmds758 kg (235 lb)05/18/2025 2:36 PM CAHIitxlk794.4 cm (5' 8.25 )05/18/2025 2:36 PM ESTBody Mass Index35.4705/18/2025 2:36 PM ESTdocumented in this encounter Progress Notes * Korin Lee, - 05/18/2025 3:04 PM ESTAssociated Problem(s): Type 2 diabetes mellitus [...] have any problems or questions. Mendoza Barroso blood sugars are worsening. , The patient is wearing their cgm on a daily basis and making decisions in regards to adjusting insulin daily as well for at least the last 60 days , Discussed dietary changes at length. Encouraged to limit simple carbs and focus more on healthy protein/fat with all meals and snacks. They should also avoid any sugary drinks. , Instructions given today in clude: Insulin instructions and Dietary education. He is to work on changing his snack around at night and have less carbs/more protein. * Korin Lee DO - 05/18/2025 2:45 PM EST Images from the original note were not included. Mendoza Barroso is a 84 y.o. male presents with chief complaint of Diabetes HPI: Diabetes Mellitus Follow-up: Mendoza Barroso is here for follow-up evaluation of diabetes mellitus. The initial diagnosis of diabetes was made 08/2021 Diabetes complications: none Hx of diabetes medications tried: fiasp He has been checking his blood glucose with a Dexcom CGM - READER- on a daily basis. Bg run fairly smooth during the day, spikes some at lunch but then tends to run high in the eveningand overnight. He has been eating soda crackers with PB and jelly for a snack at night. Last A1c: 8.3 (01/12/25) Last eye exam: DUE Current concerns include: BG levels: similar to last visit Diet: none- 2 meals a day evening snack soda crackers with peanut butter and jam Drinks: water, tea with milk and sugar, diet pop Exercise: none Hypoglycemia: none SUBJECTIVE: PROBLEM LIST SOCIAL ALLERGIES: Problem List[1] Social History[2] Allergies[3] 05/18/2025 14:48 03/03/2025 00:00 Antidiabetic medications Insulin Glargine 24 Units Daily SC -Discontinued Insulin Glargine INJECT 24 UNITS SUBCUTANEOUSLY ONCE A DAY (100 UNIT/ML SOPN) INJECT 24 UNITS SUBCUTANEOUSLY ONCE A DAY (100 UNIT/ML SOPN) Labs [facility] HEMOGLOBIN A1C/HEMOGLOBIN.TOTAL:MFR:PT:BLD:QN: 9.1 Outpatient prescription Medication marked as long-term The ASCVD Risk score (Melva LEONARD, et al., 2019) failed to calculate for the following reasons: The 2019 ASCVD risk score is only valid for ages 40 to 79 Risk score cannot be calculated because patient has a medical history suggesting prior/existing ASCVD * - Cholesterol units were assumed REVIEW OF SYMPTOMS: Review of Systems Constitutional: Negative for appetite change, fatigue and unexpected weight change. Eyes: Negative for visual disturbance. Respiratory: Negative for cough, shortness of breath and wheezing. Cardiovascular: Negative for chest pain, palpitations and leg swelling. Neurological: Negative for numbness. Endocrine: Negative for polydipsia, polyphagia and polyuria. OBJECTIVE: 05/18/2025 2:36 PM 01/12/2025 2:32 PM 09/15/2024 2:11 PM Vitals BMI 35.47 kg/m2 35.62 kg/m2 36.83 kg/m2 Systolic 126 122 128 Diastolic 66 64 76 Heart Rate 79 76 74 Temp 97.7 ??F 97.8 ??F 97.9 ??F Height (in) 5' 8.25 5' 8.25 5' 8.25 Weight (lb) 235 236 244 Visit Report Report Report Report Physical Exam [...] with long-term current use of insulin (HCC) Class 2 severe obesity due to excess calories with serious comorbidity and body mass index (BMI) of35.0 to 35.9 in adult - Primary Type 2 diabetes mellitus with [...] have any problems or questions. Mendoza Barroso blood sugars are worsening. , The patient is wearing their cgm [...] instructions and Dietary education. He is to work on changing his snack around at night and have less carbs/more protein. Relevant Orders POCT glycosylated hemoglobin (Hb A1C) docked device (Completed) Follow up with Dr. Korin Lee in about 4 months (around 09/15/2025). Patient's Medications New Prescriptions No medications on [...] MG TABLET Take 40 mg by mouth Daily GABAPENTIN (NEURONTIN) 300 MG CAPSULE Take 300 mg by mouth Daily INSULIN GLARGINE (LANTUS SOLOSTAR) 100 UNIT/ML PEN INJECT 24 UNITS SUBCUTANEOUSLY ONCE A DAY INSULIN PEN NEEDLE (BD PEN NEEDLE ALVARADO U/F) 32G X 4 MM MISC Inject 1 each under the skin Daily POLYETHYLENE GLYCOL, PEG, 3350 (MIRALAX) 17 G PACKET Take 17 g by mouth in the morning. ROSUVASTATIN (CRESTOR) 40 MG TABLET Take 40 mg by mouth in the morning. SOTALOL (BETAPACE) 120 MG TABLET Take 120 mg by mouth in the morning and 120 mg before bedtime. TAMSULOSIN (FLOMAX) 0.4 MG 24 HR CAPSULE Take 1 capsule (0.4 mg) by mouth in the morning. Modified Medications No medications on file Discontinued Medications SOTALOL (BETAPACE) 80 MG TABLET Take 1 tablet by mouth in the morning and 1 tablet before bedtime. I have reviewed and reconciled the history and medication list with the patient today. [1] Patient Active Problem List Diagnosis Type 2 diabetes mellitus with stage 3a chronic kidney disease, with long-term current use of insulin (HCC) Class 2 severe obesity due to excess calories with serious comorbidity and body mass index (BMI) of35.0 to 35.9 in adult Stage 3a chronic kidney disease ([facility]) Neuropathy Myocardial infarction (HCC) Essential hypertension Elevated cholesterol Coronary artery disease involving naknek coronary artery of naknek heart without angina pectoris Benign prostatic hyperplasia with lower urinary tract symptoms Paroxysmal atrial fibrillation (HCC) Type 2 diabetes mellitus with other circulatory complications ([facility]) [2] Social History Tobacco Use Smoking status: Former Types: Cigarettes Smokeless tobacco: Never Vaping Use Vaping status: Never Used Substance Use Topics Alcohol use: Yes Comment: very rare Drug use: Never [3] Allergies Allergen Reactions Bee Venom Swelling documented in this encounter Plan of Treatment DateTypeDepartmentCare Team (Latest Contact Info)Vntdlposbql70/17/2026 2:30 PM EDTOffice Visit [facility] [address] [place] [address] Korin Lee DO [address] [place] [address] documented as of this encounter Procedures Procedure NamePriorityDate/TimeAssociated DiagnosisCommentsPOCT GLYCOSYLATED HEMOGLOBIN (HGB A1C)Rtfkfrp0505/18/2025 2:48 PM EST Type 2 diabetes mellitus with other circulatory complications (HCC) documented in this encounter Results * (ABNORMAL) POCT glycosylated hemoglobin (Hb A1C) docked device (05/18/2025 2:48 PM EST)ComponentValueRef RangeTest MethodAnalysis TimePerformed At Pathologist SignatureHemoglobin A1C9.1Specimen (Source)Anatomical Location / LateralityCollection Method / VolumeCollection TimeReceived TimeBloodVenous blood specimen / Tknstww1005/18/2025 2:48 PM EST Narrative Authorizing ProviderResult TypeResult StatusKorin Lee DOPOINT OF CARE TEST ENTER/EDIT ORDERABLESFinal Result documented in this encounter Visit Diagnoses Diagnosis Class 2 severe obesity due to excess calories with serious comorbidity and body mass index (BMI) of35.0 to 35.9 in adult- Primary Type 2 diabetes mellitus with stage 3a chronic kidney disease, with long-term current use of insulin (HCC) Type 2 diabetes mellitus with other circulatory complications (HCC) documented in this encounter Care Teams Team MemberRelationshipSpecialtyStart DateEnd Date Korin Lee DO [address] [place] [address] PCP - [employer]04/29/22 Julio Patton DO [address] [place] [address] PCP - GeneralInternal Pntdwdec74/10/23documented as of this encounter
--- OUTSIDE RECORDS SUMMARY | 2025-05-23 10:00 | XMS_ITS | Encounter Summary ---
Author Organization [facility] Address [address] [place] [address] Care Team Providers Care Cut Off Machine Helper Name Role Phone Julio Patton DO Primary Care Provider [phone] Reason for Visit * ReasonCommentsFollow-upCoronary Artery DiseaseAtrial FibrillationHypertension Symptomatic bradycardiaCongestive Heart FailureMIChronic Venous Insufficiency HyperlipidemiaPacemaker Encounter Details DateTypeDepartmentCare Team (Latest Contact Info)Vebwbgprkek03/25/2025 10:00 AM ESTOffice Visit [facility] [address] [place] [address] Gaurang Grijalva MD [address] [place] [phone] Persistent atrial fibrillation (CMS/HCC) (Primary Dx) Social History Tobacco UseTypesPacks/DayYears UsedDateSmoking Tobacco: FormerCigarettesAlcohol UseStandard Drinks/WeekCommentsNot Currently0 (1 standard drink = 0.6 oz pure alcohol)[place] Safety & EnvironmentAnswerDate RecordedFear of Current or Ex-Partner Not on file08/20/2023Emotionally AbusedNot on 08/20/2023hysically AbusedNot on 08/20/2023Sexually AbusedNot on 08/20/2023hysically or Sexually AbusedNot on file08/20/2023Sex and Gender InformationValueDate RecordedSex Assigned at TsjdpOasc46/15/2025 8:20 PM EDTLegal BafKnnn83/ 9:48 PM EDT Gender NjiqcgrzOfqw71/15/2025 8:20 PM EDTSexual OrientationHeterosexual or Hnxelkdg61/15/2025 8:20 PM EDTdocumented as of this encounter Last Filed Vital Signs Vital SignReadingTime TakenCommentsBlood Vaqpvkdm144/ 10:10 AM EST Fsjpt803805/23/2025 10:10 AM ESTTemperature--Respiratory Rate--Oxygen Saturation 95%05/23/2025 10:10 AM ESTInhaled Oxygen Concentration--Zmautf898 kg (238 lb) 05/23/2025 10:10 AM ESTFhjlwo755.7 cm (5' 8 )05/23/2025 10:10 AM ESTBody Mass Index36.19107/23/2024 10:10 AM ESTdocumented in this encounter Functional Status * BPAnswerDate of ShwixhgirhMisfgt626/ 10:10 AM La Nena Basurto MA * PulseAnswerDate of SmlweiwehkRqgeve1687/25/2025 10:10 AM La Nena Basurto MA * Patient PositionAnswerDate of BofwdzwwxcPtnetjBxistgk76/25/2025 10:10 AM La Nena Guzman MA * BPAnswerDate of VngalabxitFjdwrb481/ 10:10 AM La Nena Basurto MA * PulseAnswerDate of CjjlpmmhwuQhaeac2750/25/2025 10:10 AM La Nena Basurto MA * TtY4TueuyoVbgc of VhojqxmmnmKctidv1435/25/2025 10:10 AM La Nena Basurto MA * BP LocationAnswerDate of AssessmentAuthorR[facility]05/23/2025 10:10 AM La Nena Guzman MA * Patient PositionAnswerDate of TxmsdctiwkDdjzoqHuzqkcw89/25/2025 10:10 AM La Nena Guzman MA documented as of this encounter Progress Notes * Gaurang Grijalva MD - 05/23/2025 10:00 AM EST Images from the original note were not included. AR Electrophysiology Consult Note Reason for visit: follow up , s/p atrial lead dislodgment with extraction of old lead and reimplantation of new lead 07/08/2022 , s/p DCCV at [facility] for afib 05/23/2025 Patient is here today for H & P and consent for A-Fib ablation. Patient denies chest pain, racing heart/palpitations, dizziness/lightheaded. Patient complains of occasional SOB/REDDY, leg swelling. Review of Systems Cardiovascular: Positive for dyspnea on exertion (occasional) and leg swelling (occasional). Respiratory: Positive for shortness of breath (occasional). 01/17/2025 Patient state he hasn't been feeling [...] problem for him even in the past. Ej not see any recent echocardiogram except for [...] in the atrial channel. he does have ely shoshone conduction and management of the device he had significant sinus node dysfunction with sinus bradycardia in the 40s with ely shosh[place] QRS. however he does have AV Wenckebach [...] threshold of 1 V and ventricular threshold of1.7 V. he is paced 100% of the time in the RV and 59% of the time in the RA. Echocardiogram performed on 12/31/2022 ECG 12/19/22 is AV paced, appears there is a P wave - possible PAC falling into PVARP continues to be on sotalol and tolerating medication well - [facility] 353 10/14/22 HPI: Patient here for follow-up s/p RA lead extraction and reimplantation of new lead on 07/08/2019. Device check 10/14/2022 reveals normal function and thresholds are revealed he is in persistent A-fib. Hewas placed on sSotalol 80mg bid and is now paced at 60bpm. Patient has shortness of breath, REDDY, orthopnea. Fatigue+ Prior HPI: Mendoza Barroso is a 84 y.o. year old with [facility]. initial plans for cardioversion was aborted and he underwent a dual-chamber Biotronik pacemaker implant by Dr. Armenta on 05/06/22. subsequently he was advised tohave a cardioversion done as an outpatient. today [...] Drivers of Health Tobacco Use: Medium Risk (05/23/2025) Patient History Smoking Tobacco Use: Former Smokeless Tobacco Use: Unknown Passive Exposure: Not on file Alcohol Use: Not At Risk (11/12/2023) Received from [facility] AUDIT-C Q1: How often do you have a drink containing alcohol?: Never Q2: How many drinks containing alcohol do you have on a typical day when you are drinking?: Patientdoes not drink Q3: How often do you have six or more drinks on one occasion?: Never Financial Resource Strain: Not on file Food Insecurity: No Food Insecurity (11/24/2024) Received from [facility] Hunger Screening Within the past 12 months [...] on file Intimate Partner Violence: Unknown (08/20/2023) [place] Safety & Environment Fear of Current or Ex-Partner: Not on file Emotionally Abused: Not on file Physically Abused: Not on file Sexually Abused: Not on file Physically or Sexually Abused: Not on file Depression: Not at risk (01/12/2025) Received from [facility] PHQ-2 Patient Health Questionnaire-2 Score: 0 Housing [...] 300 mg by mouth in the morning. insulin aspart, with niacinamide, (Fiasp FlexTouch U-100 [...] the morning. sotalol (Betapace) 120 mg tablet TAKE 1 TABLET (120 MG) BY MOUTH IN THE MORNING AND AT BEDTIME. 180tablet 3 tamsulosin (Flomax) 0.4 mg 24 hr capsule Take 0.4 mg by mouth in the morning and at bedtime. azithromycin (Zithromax) 250 mg tablet Take 250 mg by mouth in the morning. (Patient not taking: Reported on 05/23/2025) insulin aspart (NovoLOG, Fiasp) 100 UNIT/ML patient supplied pump Inject under the skin continuously. (Patient not taking: Reported on 05/23/2025) No current facility-administered medications on file prior to visit. Physical Exam: Constitutional General Appearance: well-nourished, well-developed, appears stated age Level of Distress: comfortable Psychiatric Mental Status: alert, normal affect Orientation: oriented to time, place, and person Insight: good judgement Eyes Lids and Conjunctivae: non-injected, no xanthelasma ENMT Ears: no lesions on external ear Nose: no lesions on external nose Oropharynx: no cyanosis, no pallor Neck Neck: supple, trachea midline Carotid Arteries: bilateral normal upstroke, no bruits Jugular Veins: normal jugular venous pressure Thyroid: not enlarged Lungs Respiratory Effort: unlabored Chest Exam: normal curvature, no thoracic deformity Auscultation: clear, no wheezing, no rales, no rhonchi Cardiovascular Rate And Rhythm: regular, paced Heart Sounds: normal S1, normal s2, no gallop Systolic Murmur: not heard Diastolic Murmur: not heard Extremities: no cyanosis, no edema, no peripheral signs of emboli Peripheral Pulses Radial Pulse: normal Abdomen Inspection and Palpation: soft, non distended, no bruit, non tender Musculoskeletal Inspection: no joint swelling Neurologic Gait: normal gait Skin Inspection and Palpation: warm and dry Nails: no clubbing Labs/Testing/Procedures: 06/2022 RA lead revision Final impression: Atrial lead dislodgment Extraction of old lead and reimplantation of new lead Conscious sedation Fluoroscopy Contrast injection for venography of the upper extremity Pacemaker implantation (05/06/2022): Is a 81-year-old gentleman who has developed atrial fibrillation and has a ventricular response rate of 40 bpm. We referred for cardioversion however it was felt that this was unwise due to his low ventricular response rate. It was felt it would be appropriate to implant a dual-chamber pacemaker prior to cardioversion. Final impressions: 1. Dual-chamber pacemaker insertion 2. Contrast injection for venography of the upper extremity 3. Fluoroscopy 4. Conscious sedation Eusebio Armenta M.D. [facility] director strategic planning and Pediatrics Director: Cardiac Electrophysiology Program Ancillary Procedure on 01/17/2025 Component Date Value Ref Range Status BSA 01/20/2025 2.24 m2 Final No results found for this or any previous visit (from the past 4464 hours). CV Testin10/24/22 tte 04/01/22 Echo Blood testing 09/09/2021: Potassium 5.3, BUN 24, creatinine 1.63. eGFR 41. Blood testing 07/25/2021: Hemoglobin 14.9, platelets 205. Blood testing 06/13/2021: Potassium 4.1, BUN 14, creatinine 1.18. Prior testing: Blood testing 03/28/2021: Hemoglobin 13.4, platelets 242, potassium 4.3, BUN 15, creatinine 1.17, cholesterol 136, HDL 61, triglycerides 113, LDL 52. Cardiac cath 12/22/2017: 1. Patent stent in the right coronary artery. 2. Mild to moderate disease of the ostium of the right and left anterior descending coronary artery. 3. Mild plaque disease of the left circumflex coronary artery. Echocardiogram 12/22/2017: Global left ventricular systolic function is normal (Visually estimated EF 65%). No regional wall motion abnormality. Normal right ventricular systolic function. No pericardial effusion. Plan: Atrial fibrillation, persistent -NLH1WB8-SYPm at least 3, continue Eliquis 5 mg twice daily - Sotalol 120 mg twice daily Plan on catheter ablation. Symptomatic bradycardia s/p PPM -S/p PPM with RV lead revision 06/2022. Given high degree of RV pacing will check an echocardiogram to see what the EF is Essential hypertension -Blood pressure is more stable -Continue medication Coronary artery disease involving ely shoshone coronary artery of ely shoshone heart without angina pectoris -Continue ASA, crestor, BB -Continue risk factor modifications- heart healthy diet, regular exercise as tolerated. -He denies symptoms. -Lipid panel 06/06 showed cholesterol of 144, LDL of 54, HDL of 66, trig 123 HFpEF - patient having HFpEF symptoms shortness of breath with exertion, chronic and stable - NYHA II-III - Echo 10/13/2022 showed normal EF and no mildly dilated RV with reduced systolic function, mild tricuspid regurg, with elevated RVSP 35 - GDMT: Sotalol 120 mg twice daily, lisinopril 10 mg daily, Crestor 40 mg daily, Eliquis 5 mg twicedaily, hydralazine 50 mg twice daily, aspirin 81 mg, will have him increase lasix to 40mg daily. Appears compensated, Afib ablation would require placement of multiple catheters in the heart under moderate sedation which will include diagnostic catheters, ICE catheters and ablation catheters. The risk of the procedures can be described as minor and major minor complications being discomfort in the groin area, bleeding, infection and vascular complications at this fistula formation, pseudoaneurysm, nerve injury. Major complications would include catheter induced cardiac perforation leading to tamponade/ pericardial effusion which may or may not require surgical intervention. Other complications are phrenic nerve injury leading to paralysis, thromboembolism including pulmonary and systemic event leading to stroke or endorgan injury or or PV stenosis or AE fistula as post ablation adverse effects. There could be a possibility of catheter induced valve entrapment which may require surgical intervention and valve replacement. Given that these procedures are performed under x-ray, they could be acuteor long-term side effects from radiation . Gven the comorbidities, the likelihood of attaining sinus rhythm would be ~75% and reiterated the importance of weight loss and an exercise regimen as well as treatment of sleep apnea which would be beneficial in long-term maintenance of sinus rhythm basedon data from LEGACY and CARDIOFIT trials. Overall the risk of these complications ranged anywhere from 1-5%. Patient verbalized understanding and have agreed to proceed with the procedure. Gaurang Grijalva MD Cardiac Electrophysiology documented in this encounter Plan of Treatment DateTypeDepartmentCare Team (Latest Contact Info)Cmlrffevnpj08/11/2025 12:00 PM ESTHospital Encounter [facility] [address] [place] [phone] Gaurang Grijalva MD [address] [place] [address] Paroxysmal atrial fibrillation (CMS/HCC)06/08/2025 12:00 PM EST - 06/08/2025 3:00 PM ESTSurgery [facility] [address] [place] [address] Gaurang Grijalva MD [address] [place] [address] Ablation a-fib w/ pvi [[id number] (CPT??)]06/08/2025 12:00 PM ESTAppointment [facility] [address] [place] [address] 07/04/2025 10:15 AM ESTAncillary Procedure [facility] at [facility] [address] [place] [address] documented as of this encounter Visit Diagnoses Diagnosis Paroxysmal atrial fibrillation (CMS/HCC)- Primary Atrial fibrillation Persistent atrial fibrillation (CMS/HCC)- Primary Atrial fibrillation Paroxysmal atrial fibrillation (CMS/HCC) Atrial fibrillation documented in this encounter Care Teams Team MemberRelationshipSpecialtyStart DateEnd Date Julio Patton DO [address] [facility] [place] [address] PCP - Bsewoeq07/26/22documented as of this encounter
--- OUTSIDE RECORDS SUMMARY | 2025-05-23 11:08 | XMS_ITS | Clinical Summary ---
Author Organization [facility] Address [address] [place] [address] Care Team Providers Care Security Inspector Name Role Phone Julio Patton DO Primary Care Provider [phone] Allergies Active AllergyReactionsCriticalityNoted DateCommentsMixed Vespid Venom Protein NcvcesdribpGjkm14/16/2020 Medications MedicationSigDispense QuantityRefillsLast FilledStart DateEnd DateStatus apixaban [...] THE MORNING AND AT BEDTIME. 180 tablet /ctive gabapentin (Neurontin) 300 mg capsule Take 300 mg by mouth in the morning.Active azithromycin (Zithromax) 250 mg tablet Take 250 mg by mouth in the morning.Active Active Problems ProblemNoted DateDiagnosed DateAbrasion, left lower leg, subsequent encounter 05/23/2025ardiac pacemaker in situ05/23/2025 Overview (05/23/2025): Dual chamber pacemaker in situ Bilateral carotid svxxns8211/24/2024Medicare annual wellness visit, subsequent 06/07/2024enign prostatic hyperplasia with lower urinary tract symptoms hange in bowel ttiaoy39hronic kidney csakzcx36hronic venous wvjalkswuwfew72 Elevated lfvjmfaneqa00Long term (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 insulin Severe fwuxnmwhvkva43 Overview (10/22/2023): Last Assessment & Plan: We will get a PVR and follow-up after the PVR. Stage 3a chronic kidney surxuxn85Swelling of both lower xzlvlzxkyuh06 Overview (10/22/2023): Last Assessment & Plan: We will prescribe compression stockings after making sure he does not have severe arterial occlusive disease. Type 2 diabetes mellitus with xohbjaynxwuwn02Weight loss Severe obesity with body mass index (BMI) of 35.0 to 35.9 and htrvxnwkuje40Type 2 diabetes mellitus with stage 3a chronic kidney disease, with long-term current use of ivzmgam6905/14/2023 10/22/2023 Overview (10/22/2023): Last Assessment & Plan: [...] on chronic heart failure with preserved ejection qtmejqwl75/28/2023 Cwbvdfodj28/28/Myocardial zpzxazxskm57Neuropathy ICD lead necsqmkcylba56/30/2022 Overview (06/27/2022): Added automatically from request for surgery [id number] Coronary artery disease involving [place] coronary artery of [place] heart without angina gmawegua27/26/2022 Assessment & Plan (04/23/2022 4:33 PM EDT): Continue GDMT- ASA, crestor- hold beta juliana r/t bradycardaia Continue risk factor modifications- heart healthy diet, regular exercise as tolerated. Paroxysmal atrial fblltdedzugr34/26/2022 Assessment & Plan (04/23/2022 4:40 PM EDT): EKG 03/28/22 A fib rate 56 bpm Anteroseptal ME- probably old Holter monitor 04/22/22- predominant rhythm [...] he voicedunderstanding. Status post percutaneous transluminal coronary hhucrssakii14/26/2022 Assessment & Plan (04/23/2022 3:43 PM EDT): Stable no concerning symptoms currently Essential zyncudyweqex95/26/2022 Assessment & Plan (04/23/2022 4:34 PM EDT): B/P today 174/81- will continue doxazosin 4 mg daily and add hydralazine 25 mg po bid for HTN management- No ARNOL I, ARB or aldactone with past HARLAN Renal function 04/01/22 BUN 18, CR 1.28 01/28/22 BUN 18, CR 1.24, K+ 4.6 09/09/21 BUN 24, CR 1.63 Symptomatic jtehmrhcfae10/26/2022 Assessment & Plan (04/23/2022 4:36 PM EDT): Stop beta juliana, will d/w Dr Spears and Dr Grijalva regarding plans for cardioversion. D/W pt that if he remains symptomatic bradycardia he may need a permanent pacemaker and he voiced understanding. Encounters DateTypeDepartmentCare GekjQrravvlsbfa48/25/2025 10:00 AM ESTOffice Visit [facility] [address] [place] [address] Gaurang Grijalva MD Persistent atrial fibrillation (CMS/HCC) (Primary Dx)04/10/2025 2:30 PM EDT Ancillary Procedure [facility] [address] [place] [phone] Adjustment and management of cardiac pwucoarqk32/12/2025Orders Only [facility] [address] [facility] [place] [address] Johnny Hauser MD from Last 3 Months Immunizations ImmunizationAdministration DatesNext DueCovid (Pfizer) Bivalent Booster =>12 YRS 05/02/2022Influenza, High Dose Seasonal, Preservative Free03/31/2017,04/17/2016 Influenza, High-dose Seasonal, Quadrivalent, Preservative Free05/02/2022 Influenza, trivalent, lkehovmpzg36/11/2018Unspecified Sars-Cov-2 Vaccination 09/26/2021,04/24/2021,08/16/2020,07/16/2020Zoster, live09/19/2014 Family History RelationNameStatusCommentsFatherDeceasedMotherDeceased Social History Tobacco UseTypesPacks/DayYears UsedDateSmoking Tobacco: FormerCigarettes Tobacco Cessation:Counseling Given: Not Answered Alcohol UseStandard Drinks/WeekCommentsNot Currently0 (1 standard drink = 0.6 oz pure alcohol)[place] Safety & EnvironmentAnswerDate RecordedFear of Current or Ex-PartnerNot on file08/20/2023Emotionally AbusedNot on file4Physically AbusedNot on file08/20/2023Sexually AbusedNot on file4Physically or Sexually AbusedNot on file08/20/2023Sex and Gender InformationValueDate Recorded Sex Assigned at CzrqrUeju06/15/2025 8:20 PM EDTLegal MijRqkz6912/25/2021 9:48 PM EDTGender SoizdemeGxhi12/15/2025 8:20 PM EDTSexual OrientationHeterosexual or Bfjzvosl71/15/2025 8:20 PM EDT Last Filed Vital Signs Vital SignReadingTime TakenCommentsBlood Eifctnxx977/7105/23/2025 10:10 AM EST Ewfci710005/23/2025 10:10 AM ESTTemperature--Respiratory Cnmq106507/08/2022 1:40 PM ESTOxygen Slvixafdae98%05/23/2025 10:10 AM ESTInhaled Oxygen Concentration-- Lktkkc630 kg (238 lb)05/23/2025 10:10 AM HWCYrmxnm549.7 cm (5' 8 )05/23/2025 10:10 AM ESTBody Mass Index36.19107/23/2024 10:10 AM EST Plan of Treatment DateTypeDepartmentCare Team (Latest Contact Info)Rvgzxspamhw04/11/2025 12:00 PM ESTHospital Encounter [facility] [address] [place] [phone] Gaurang Grijalva MD [address] [facility] [place] [address] Paroxysmal atrial fibrillation (CMS/HCC)06/08/2025 12:00 PM EST - 06/08/2025 3:00 PM ESTSurgery [facility] Heart [facility] [address] [place] [address] Gaurang Grijalva MD [address] [facility] [place] [address] Ablation a-fib w/ pvi [[id number] (CPT??)]06/08/2025 12:00 PM ESTAppointment [facility] [address] [place] [address] 07/04/2025 10:15 AM ESTAncillary Procedure [facility] [address] [place] [address] Health MaintenanceDue DateLast DoneCommentsMedicare Annual Wellness (AWV) 1Diabetes: Retinopathy Ctajvyidh20/22/1951Depression Screening 3Diabetes: Urine Protein Ekcrsjuhj83/22/1960Zoster Vaccines (1 of 2) Fall Risk Jbgclpoeg67/22/2006Diabetes: Hemoglobin A1C /3Adult Wkgigjp27/12/2012COVID-19 Vaccine ( season), 04/27/2023, 05/02/2022, Additional history existsPneumococcal Vaccine: 50+ KgawsJoloywtex52/09/2016, 11/10/2012Influenza BoyxsdmFqfbgawah71/28/2025, 03/28/2024, 03/25/2023, Additional history existsHIB VaccinesAged OutNo longer eligible based on patient's age to complete this topic HPV VaccinesAged OutNo longer eligible based on patient's age to complete this topicIPV VaccinesAged OutNo longer eligible based on patient's age to complete this topicMeningococcal B VaccineAged OutNo longer eligible based on patient's age to complete this topicMeningococcal VaccineAged OutNo longer eligible based on patient's age to complete this topicRotavirus VaccinesAged OutNo longer eligible based on patient's age to complete this topic Medical Devices ImplantedTypeAreaManufacturerDevice IdentifierShelf Expiration DateModel / Serial / LotLeadDominic S 60, - [id number] - [id number] Implanted:Qty: 1 on 05/06/2022 by [id number] / [id number] / Lead,Jesica Alfaro 53, - [id number] - [id number] Implanted:Qty: 1 on 05/06/2022 by Eusebio Armenta MD at [id number] / [id number] / [id number] Dominic Mooney 60 [id number] Implanted:05/06/2022 (Quantity not on file)[id number] 179 DOMINIC S 60 / [id number] / Lead,DominicS 53, - [id number] - [id number] Implanted:Qty: 1 on 07/08/2022 by Eusebio Armenta MD at [id number] / [id number] / [id number] Dominic S 53 [id number] Implanted:07/08/2022 (Quantity not on file)Palc514 177 DOMINIC S 53 / [id number] / Pacer Edora,Dual,Balwinder - [id number] - [id number] Implanted:Qty: 1 on 05/06/2022 by Eusebio Armenta MD at [facility]Health[id number] / [id number] / [id number] Edora 8 Balwinder [id number] Implanted:05/06/2022 (Quantity not on file)[id number] EDORA 8 BALWINDER / [id number] / Procedures Procedure NamePriorityDate/TimeAssociated DiagnosisCommentsCARDIAC DEVICE CHECK CHECK - BFWNRBStjkbqy12/15/2025 3:29 PM EDT Adjustment and management of cardiac pacemaker CARDIAC DEVICE CHECK - REMOTE - ETBEXDTQUMonhuox43/12/2025 12:00 AM EDTfrom Last 3 Months Results * CARDIAC DEVICE CHECK - REMOTE - PACEMAKER (04/12/2025 3:29 PM EDT)Specimen (Source)Anatomical Location / LateralityCollection Method / VolumeCollection TimeReceived Time Narrative Authorizing ProviderResult TypeResult StatusEusebio Armenta [facility] [place] C[place]IAC DEVICE PROCEDURESFinal ResultPerforming OrganizationAddressCity/State/ZIP Code Phone Number CPACS * Cardiac device check - Remote pacemaker (04/09/2025 12:00 AM EDT)Anatomical RegionLateralityModalityOtherSpecimen (Source)Anatomical Location / Laterality Collection Method / VolumeCollection TimeReceived Time04/09/2025 Narrative Authorizing ProviderResult TypeResult StatusJohnny Hauser [facility] [place] CARDIAC DEVICE PROCEDURESFinal Result from Last 3 Months Insurance Care Teams Team MemberRelationshipSpecialtyStart DateEnd Date Julio Patton DO [address] [place] [address] PCP - Icsqsoq99/26/22
--- OUTSIDE RECORDS SUMMARY | 2025-05-23 11:08 | XMS_ITS | Encounter Summary ---
Author Organization [facility] Address [address] [place] [address] Care Team Providers Care Web Art Director Name Role Phone Korin Lee DO Unavailable [phone] Julio Patton DO Primary Care Provider [phone] Encounter Details DateTypeDepartmentCare Team (Latest Contact Info)Rmsbrwousbm76/19/2025Telephone [facility] [address] [facility] [address] [place] [address] Korin Lee, [address] [facility] [address] [place] [address] Social History Tobacco UseTypesPacks/DayYears UsedDateSmoking Tobacco: FormerCigarettes [...] drinks on one occasion?Never11/12/2023HQ-2AnswerDate RecordedPatient Health Questionnaire-2 Rojzx557Sex and Gender InformationValueDate RecordedSex Assigned at BirthNot on fileLegal EuoFhuz6009/10/2022 11:34 PM EDTGender IdentityNot on file Sexual OrientationNot on filedocumented as of this encounter Miscellaneous Notes * Telephone Encounter - Jazmín Bedoya - 05/17/2025 1:34 PM EST Tried to contact the Pt to confirm his appt for tomorrow @ 2:[address] Langley, was unable to contact the Pt or leave a LV and the call failed. documented in this encounter Plan of Treatment DateTypeDepartmentCare Team (Latest Contact Info)Lnbtgsjmzbt79/17/2026 2:30 PM EDTOffice Visit [facility] [address] [place] [address] Korin Lee DO [address] [facility] 230 [place] [address] documented as of this encounter Visit Diagnoses Not on filedocumented in this encounter Care Teams Team MemberRelationshipSpecialtyStart DateEnd Date Korin Lee DO [address] [facility] 230 [place] [address] PCP - [employer]04/29/22 Julio Patton DO [address] [place] [address] PCP - GeneralInternal Hcvlqzxp53/10/23documented as of this encounter
--- OUTSIDE RECORDS SUMMARY | 2025-05-23 11:08 | XMS_ITS | Clinical Summary ---
Author Organization [facility], [facility] Address [address] [id number] Care Team Providers Care Personal Lines Appraiser Name Role Phone Unavailable Primary Care Provider [...]
--- OUTSIDE RECORDS SUMMARY | 2025-05-23 11:08 | XMS_ITS | Encounter Summary ---
Author Organization [facility] Address [address] [facility] [place] [address] Care Team Providers Care Forest Fire Lookout Name Role Phone Korin Lee DO Unavailable Julio Patton DO Primary Care Provider Encounter Details DateTypeDepartmentCare Team (Latest Contact Info)Tuyqnifkogq88/20/2025amboo flowsheet [facility] [address] [facility] [address] [place] [address] Korin Lee, [address] [facility] [address] [place] [address] Social History Tobacco UseTypesPacks/DayYears UsedDateSmoking Tobacco: FormerCigarettes [...] drinks on one occasion?Never11/12/2023HQ-2AnswerDate RecordedPatient Health Questionnaire-2 Jgghl875Sex and Gender InformationValueDate RecordedSex Assigned at BirthNot on fileLegal JpxPbyn9409/10/2022 11:34 PM EDTGender IdentityNot on file Sexual OrientationNot on filedocumented as of this encounter Plan of Treatment DateTypeDepartmentCare Team (Latest Contact Info)Drjnmgzjocc54/17/2026 2:30 PM EDTOffice Visit [facility] [address] [place] [address] Korin Lee, [address] [place] [address] documented as of this encounter Visit Diagnoses Not on filedocumented in this encounter Care Teams Team MemberRelationshipSpecialtyStart DateEnd Date Korin Lee, [address] [place] [address] PCP - [employer]04/29/22 Julio Patton DO [address] [place] [facility] [place] [address] PCP - GeneralInternal Qqcogsag32/10/23documented as of this encounter
--- OUTSIDE RECORDS SUMMARY | 2025-05-23 11:08 | XMS_ITS | Encounter Summary ---
Author Organization [facility] Address [address] [place] [address] Care Team Providers Care Electric Stop Installer Name Role Phone Korin Lee DO Unavailable [phone] Julio Patton DO Primary Care Provider [phone] Encounter Details DateTypeDepartmentCare Team (Latest Contact Info)Ueyrqogwuoo63/20/2025Travel Social History Tobacco UseTypesPacks/DayYears UsedDateSmoking Tobacco: FormerCigarettes [...] drinks on one occasion?Never11/12/2023HQ-2AnswerDate RecordedPatient Health Questionnaire-2 Sngih272Sex and Gender InformationValueDate RecordedSex Assigned at BirthNot on fileLegal KvoWanf9909/10/2022 11:34 PM EDTGender IdentityNot on file Sexual OrientationNot on filedocumented as of this encounter Plan of Treatment DateTypeDepartmentCare Team (Latest Contact Info)Reapugwcsyg12/17/2026 2:30 PM EDTOffice Visit [facility] [address] [place] [address] Korin Lee DO [address] [place] [address] documented as of this encounter Visit Diagnoses Not on filedocumented in this encounter Care Teams Team MemberRelationshipSpecialtyStart DateEnd Date Korin Lee DO [address] [facility] [address] [place] [address] PCP - [employer]04/29/22 Julio Patton DO [address] [place] [address] PCP - GeneralInternal Tvqxnqsr42/10/23documented as of this encounter
--- OUTSIDE RECORDS SUMMARY | 2025-05-23 11:08 | XMS_ITS | Clinical Summary ---
Author Organization [employer] Address [id number] [address] [place] [address] Care Team Providers Care Electronic Development Technician Name Role Phone Abdi Julio Terrence RAMIRES Primary Care Provider [phone] Allergies Active AllergyReactionsCriticalityNoted DateCommentsBee Venom Protein (Honey Bee)Tjndsqgr16/29/2018Mixed Vespid Venom TtlyevtTyhhlmhodatKibc79/16/2020 Medications MedicationSigDispense QuantityRefillsLast FilledStart DateEnd DateStatus tamsulosin [...] ScaleActive Active Problems ProblemNoted DateDiagnosed DateBilateral carotid zvlfet3811/24/2024 Assessment & Plan (11/24/2024 9:35 AM EDT): Carotid duplex ultrasound Severe pjbtiqojacsi60/25/2024 Assessment & Plan (11/24/2024 9:35 AM EDT): We will get PVR Assessment & Plan (10/22/2023 9:55 AM EDT): We will get a PVR and follow-up after the PVR. Swelling of both lower /25/2024 Assessment & Plan (11/24/2024 9:35 AM EDT): Continue compression stockings leg elevation exercise Assessment & Plan (10/22/2023 9:56 AM EDT): We will prescribe compression stockings after making sure he does not have severe arterial occlusive disease. A-fib02/20/2022 Social History Tobacco UseTypesPacks/DayYears UsedDateSmoking Tobacco: FormerCigarettes Tobacco Cessation:Counseling Given: Not Answered Comments:Quit awhile back Alcohol UseStandard Drinks/WeekCommentsDefer0 (1 standard drink = 0.6 oz pure alcohol)ChildcareAnswerDate OcxwmrdvZhxjbedacPixqqos91/19/2020EmploymentAnswer Date NrxnswvlNarwnaifvmQlhjkrv96/19/2020Hunger ScreeningAnswerDate Recorded Within the past 12 months we worried whether our food would run out before we got money to buy more.Never True11/24/2024Within the past 12 months the food we bought just didn't last and we didn't have money to get more.Never True 11/24/2024Purpose - LifeAnswerDate RecordedPurpose and direction in lifeUnknown 07/12/2020ex and Gender InformationValueDate RecordedSex Assigned at BirthNot on fileLegal EehCaez13/19/2020 2:05 PM ESTGender IdentityNot on fileSexual OrientationNot on file Last Filed Vital Signs Vital SignReadingTime TakenCommentsBlood Yrpxwioq206/76011/24/2024 9:07 AM EDT Khlhd940211/24/2024 9:07 AM BKOWcvupqzcewn10.3 ??C (97.3 ??F)11/24/2024 9:07 AM EDTRespiratory Botj2484 2:45 PM EDTOxygen Pwxlsbjeby37%11/24/2024 9:07 AM EDTInhaled Oxygen Concentration--Ynmkxg024.6 kg (235 lb)11/24/2024 9:07 AM WCOCwglpq639.7 cm (5' 8 )11/24/2024 9:07 AM EDTBody Mass Index35.7311/24/2024 9:07 AM EDT Plan of Treatment Health MaintenanceDue DateLast DoneCommentsDepression Xrmjtogvw45/22/1953Fall Risk Rtvffpscc27/22/2006DTaP,Tdap and Td Vaccines (1 - Tdap) Zoster (Shingles) Vaccine (2 of 3)RSV ( or age 60+ yrs) (1 - 1-dose 75+ series)2015COVID-19 Vaccine ( season) , 04/27/2023, 05/02/2022, Additional history existsInfluenza Cjzxnim38/01/547147/, 03/25/2023, 05/02/2022, Additional history exists Tobacco Eqsmchjkc09/2025 Medical Devices Not on file Insurance Care Teams Team MemberRelationshipSpecialtyStart DateEnd Date Julio Patton DO [address] [place] [address] PCP - GeneralInternal Medicine08/29/22
--- OUTSIDE RECORDS SUMMARY | 2025-05-23 11:08 | XMS_ITS | Clinical Summary ---
Author Organization [facility] Address [address] [place] [address] Care Team Providers Care Group Billing Coordinator Name Role Phone NidiamarilynKorin Eliot DO Unavailable [phone] Julio Patton DO Primary Care Provider [phone] Allergies Active AllergyReactionsCriticalityNoted DateCommentsBee EoglaEulswley52/29/2018 Medications MedicationSigDispense QuantityRefillsLast FilledStart DateEnd DateStatus apixaban (Eliquis) 5 MG tablet Take 5 mg by mouth in the morning and 5 mg in the evening.Active aspirin 81 MG EC tablet Take 1 tablet by mouth in the morning.Active finasteride (Proscar) 5 MG tablet Take 5 mg by mouth in the morning.Active furosemide (Lasix) 40 MG tablet Take 40 mg by mouth Daily12/24/2022ctive rosuvastatin (Crestor) 40 MG tablet Take 40 mg by mouth in the morning.Active tamsulosin (Flomax) 0.4 MG 24 hr capsule [...] each under the skin Daily 100 each 5Active insulin glargine (Lantus SoloStar) 100 UNIT/ML pen Indications:Type 2 diabetes mellitus with stage 3a chronic kidney disease, with long-term current use of insulin (HCC)INJECT 24 UNITS SUBCUTANEOUSLY ONCE A DAY 15 mL 5Active sotalol (Betapace) 120 MG tablet Take 120 mg by mouth in the morning and 120 mg before bedtime.5Active sotalol (Betapace) 80 MG tablet Take 1 tablet by mouth in the morning and 1 tablet before bedtime.05/18/2025 Discontinued(Therapy completed) Active Problems ProblemNoted DateDiagnosed DateType 2 diabetes mellitus with other circulatory ijrfxopqadlwi51/16/2024 Assessment & Plan (05/18/2025 3:04 PM EST): During the appointment today all [...] at night and have less carbs/more protein. Assessment & Plan (01/12/2025 8:47 PM EDT): [...] instructions and Dietary education. He is to tryand figure out what foods are spiking his [...] am ok with. Stage 3a chronic kidney jcgbctk0810/22/2023Elevated tkpzrnfivgc91/25/2024enign prostatic hyperplasia with lower urinary tract lmxymadr28/25/2024Type 2 diabetes mellitus with stage 3a chronic kidney disease, with long-term current use of nhpfihf7605/14/2023 Assessment & Plan (05/14/2023 12:41 PM EST): [...] mass index (BMI) of35.0 to 35.9 in adult05/14/20230049Vjjaixqxfj24/28/2023Myocardial ujcbfvfxzg45/28/2023Essential jqhfzlkqugwy93/26/2022 Overview (11/12/2023): Last Assessment & Plan: B/P today 174/81- will continue doxazosin 4 mg daily and add hydralazine 25 mg po bid for HTN management- No ARNOL I, ARB or aldactone with past HARLAN Renal function 04/01/22 BUN 18, CR 1.28 01/28/22 BUN 18, CR 1.24, K+ 4.6 09/09/21 BUN 24, CR 1.63 Coronary artery disease involving [place] coronary artery of [place] heart without angina ddrutvxu59/26/2022 Overview (11/12/2023): Last Assessment & Plan: Continue GDMT- ASA, crestor- hold beta juliana r/t bradycardaia Continue risk factor modifications- heart healthy diet, regular exercise as tolerated. Paroxysmal atrial pxixcarimvgj58/24/2020 Overview (11/12/2023): Last Assessment & Plan: EKG 03/28/22 A fib rate 56 bpm Anteroseptal MD- probably old Holter monitor 04/22/22- predominant rhythm [...] other meds and he voicedunderstanding. Encounters DateTypeDepartmentCare VctnJfxzfuspaau69/20/2025 2:45 PM ESTOffice Visit [facility] [address] [place] [address] Korin Lee, DO Class 2 severe obesity due to excess calories with serious comorbidity and body mass index (BMI) of35.0 to 35.9 in adult (Primary Dx); Type 2 diabetes mellitus with stage 3a chronic kidney disease, with long-term current use of insulin (HCC); Type 2 diabetes mellitus with other circulatory complications (HCC)05/18/2025 Bamboo flowsheet [facility] [address] [place] [address] Korin Lee, DO 05/18/20254514Qpkqhc07/19/2025Telephone [facility] [address] [place] [address] Korin Lee, DO 03/03/2025Refill [facility] [address] [place] [address] Korin Lee, DO Type 2 diabetes mellitus with stage 3a chronic kidney disease, with long-term current use of insulin (HCC)from Last 3 Months Immunizations ImmunizationAdministration DatesNext DueInfluenza, High Dose Seasonal, Preservative Free04/25/2025,03/28/2024,03/31/2017,04/17/2016Influenza, High-dose Seasonal, Quadrivalent, Preservative Free05/02/2022Influenza, Unspecified 03/25/2023,03/22/2021,03/12/2020,04/01/2019Influenza, trivalent, adjuvanted 03/09/2018Pneumococcal Conjugate PCV 13011/05/2015Pneumococcal Polysaccharide MIEG1475Td (adult), 5 Lf tetanus toxoid, preservative free, adsorbed 04/04/2013Zoster, live09/19/2014 Family History Medical HistoryRelationNameCommentsCancerBrotherDiabetesBrotherDementiaMother ParkinsonismSisterRheum arthritisSisterRelationNameStatusCommentsBrotherFather [...] drinks on one occasion?Never11/12/2023HQ-2AnswerDate RecordedPatient Health Questionnaire-2 Mrcua138Sex and Gender InformationValueDate RecordedSex Assigned at BirthNot on fileLegal NhnVqjw1109/10/2022 11:34 PM EDTGender IdentityNot on file Sexual OrientationNot on file Last Filed Vital Signs Vital SignReadingTime TakenCommentsBlood Oquiosmn455/6611 2:36 PM EST Stvvw236005/18/2025 2:36 PM EEVWimuflzdjzz02.5 ??C (97.7 ??F)05/18/2025 2:36 PM ESTRespiratory Rate--Oxygen Pgccitkueg18%05/18/2025 2:36 PM ESTInhaled Oxygen Concentration--Mcnalt640 kg (235 lb)05/18/2025 2:36 PM FMLDjjmkt028.4 cm (5' 8.25 )05/18/2025 2:36 PM ESTBody Mass Index35.4705/18/2025 2:36 PM EST Plan of Treatment DateTypeDepartmentCare Team (Latest Contact Info)Adzdushrzaj67/17/2026 2:30 PM EDTOffice Visit [facility] [address] [place] [address] Korin Lee, DO [address] [facility] [address] [place] [address] Health MaintenanceDue DateLast DoneCommentsDiabetes: Retinopathy Screening 1Diabetes: Urine Protein Npexhyusd39/22/1960COVID-19 Vaccine ( season)5006/30/2024, 04/27/2023, 09/26/2021, Additional history existsMedicare Annual Wellness (AWV)509/, 3Diabetes: Hemoglobin A1C6107/18/2024, 01/12/2025, 09/15/2024, Additional history existsPneumococcal Vaccine: 65+ AyntnKfbwzopxy13/09/2016, 11/10/2012Influenza QljrporDuvqqscme64/28/2025, 03/28/2024, 03/25/2023, Additional history exists Procedures Procedure NamePriorityDate/TimeAssociated DiagnosisCommentsPOCT GLYCOSYLATED HEMOGLOBIN (HGB A1C)Fnkpkgc7505/18/2025 2:48 PM EST Type 2 diabetes mellitus with other circulatory complications (HCC) from Last 3 Months Results * (ABNORMAL) POCT glycosylated hemoglobin (Hb A1C) docked device (05/18/2025 2:48 PM EST)ComponentValueRef RangeTest MethodAnalysis TimePerformed At Pathologist SignatureHemoglobin A1C9.1Specimen (Source)Anatomical Location / LateralityCollection Method / VolumeCollection TimeReceived TimeBloodVenous blood specimen / Pgpixow4705/18/2025 2:48 PM EST Narrative Authorizing ProviderResult TypeResult StatusKorin Lee DOPOINT OF CARE TEST ENTER/EDIT ORDERABLESFinal Result from Last 3 Months Insurance Care Teams Team MemberRelationshipSpecialtyStart DateEnd Date Korin Lee DO [address] [facility] [address] [place] [address] PCP - [employer]04/29/22 Julio Patton DO [address] [facility] [place] [address] PCP - GeneralInternal Zssabrgt23/10/23
--- OUTSIDE RECORDS SUMMARY | 2025-05-23 11:10 | XMS_ITS | CCD ---
Author Organization 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 Name Role Phone JULIO PATTON Unavailable Unavailable BALL, JULIO Unavailable Unavailable AHMED, TONIA Unavailable Unavailable AHMED, TONIA Unavailable Unavailable [place] Unavailable Unavailable RODRIGO, GUNNAR Marsh Unavailable Unavailable TAMI SQUIRES AM Unavailable Unavailable BALL, JULIO Unavailable Unavailable RHONA, DORIS Unavailable Unavailable COLLINS, JOSE Unavailable Unavailable [place] Unavailable Unavailable ELTAHAWY, EHAB A Unavailable Unavailable [place] Unavailable Unavailable Dipesh, Wesley Unavailable Unavailable Stevo, [...] ROA Admitting Unavailable MICK ROA Consulting Unavailable CHRIS ANDUJAR Consulting Unavailable CHRIS ANDUJAR Attending Unavailable CHRIS [...] TAPAN, DR BRASHER Admitting Unavailable Petznick , Koirn Mccabe Unavailable Julio Patton MD Primary Care Provider Ball , Julio Ocampo Primary Care Provider Ball , Julio Ocampo Primary Care Provider Ball DO, Julio Ocampo Primary Care Provider KORIN MERCEDES Attending Unavailable PETZNICK, KORIN Mccabe Attending Unavailable PETZNICK, KORIN Mccabe Attending Unavailable JULIO PATTON Referring Unavailable PRATIMA, CHRIS Referring Unavailable PRATIMA, CHRIS Referring Unavailable PRATIMA, CHRIS Attending Unavailable PRATIMA, CHRIS Referring Unavailable PRATIMA, CHRIS Attending Unavailable PRATIMA, CHRIS Referring Unavailable PRATIMA, CHRIS Referring Unavailable TAPANSAMEERA Referring Unavailable Julio Patton DO Primary Care Provider Stevo RAMIRES, Julio Attending Provider [phone] Stevo RAMIRES, Julio Ocampo Primary Care Provider Allergies Allergy ClassificationReported Allergen(s)Allergy TypeDate of OnsetReaction(s) Facility (2 sources)Bee/Wasp/Ant venom; Translations: [Bee/Wasp Stings]Propensity to adverse reactions (disorder)04-51-7574REONvqOhio[facility] (1 source)bee venomDrug allergy (disorder)[facility]ository (9 sources)bald-faced hornet venom protein / common wasp venom protein / eastern yellow jacket venom protein /Citizen Of [place] wasp venom protein / southern yellow jacket venom protein / western yellow jacket venom protein / yellow hornet venom proteinDrug AllergyMixed Vespid Venom ProteinNocass medical center YouData Other (1 source)patient allergy list reviewed by nurse or physiciaPropensity to adverse cbglgljoa91-34-0580Kyhzxnh:DoneNocass medical center YouData Other (1 source)Allergies ReconciledPropensity to adverse reactionsUnknowUniversity Health [facility] Medical Center YouData Other (6 sources)Bee/Wasp/Ant venomAllergy to mbbghxeao21-77-6670csfhlsdk at [facility] (10 sources)MIXED VESPID VENOM PROTEIN; Translations: [MIXED VESPID VENOM PROTEIN]Drug Jhyiacl88-40-2481LeqvmtfkuasNofnstfniBarnesville Hospital (8 sources)Honey bee venomPropensity to adverse ybjbiipwp38-42-3739HxfvehdwSOKZ Healthcare (3 sources)Bee Venom Protein (Honey Bee)Propensity to adverse reactions to drug 39-93-6898AhiswxiwFtlBihghd Health System Medications Current Medications MedicationDrug Class(es)DatesSig (Normalized)Sig (Original)apixaban 5 mg oral tablet (20 sources)Factor Xa InhibitorStart: 52-72-0887qicp 1 tablet by mouth twice dailyApixaban (Eliquis) 5 mg tablet Active 5 MG PO Twice daily 180 90 3 March 29, 2025 11:09am Complies with drug therapyStart: 10-12-2023 End: 10-81-0937ssia 1 tablet by mouth twice dailyApixaban (Eliquis) 5 mg tablet Discontinued 0 .ROUTE .COMPLEX 60 April 20, 2024 9:39pm March 29, 2025 11:10am TAKE 1 TABLET BY MOUTH TWICE A DAYStart: 02-24-2018 End: 38-57-2699cgst 1 tablet by mouth twice dailyApixaban (Eliquis) 5 mg Tablet Discontinued 5 MG PO Twice daily February 24, 2018 12:00am October 12, 2023 6:34pmEliquis Activeaspirin 81 mg oral tablet (20 sources)Platelet Aggregation Inhibitor, Nonsteroidal Anti-inflammatory Drug Start: 09-48-2186cvdc 1 tablet by mouth once dailyAspirin 81 81 MG 1 tablet Orally Once a day for 30 days Mar, ActiveStart: 05-59-0078wqel 1 tablet by mouth once dailyAspirin 81 [...] tablet (20 sources)5-alpha Reductase InhibitorStart: 03-02-2024 End: 09-19-7786qzfd 1 tablet by mouth once dailyFinasteride 5 mg tablet Active 0 .ROUTE .COMPLEX 90 3 February 28, 2025 10:19am TAKE ONE TABLET BY MOUTH ONCE DAILY Complies with drug therapyStart: 02-24-2018 End: 18-48-9685rgfv 1 tablet by mouth once dailyFinasteride 5 mg Tablet Discontinued 5 MG PO Daily February 24, 2018 12:00am March 02, 2024 9:29am Finasteride Activefurosemide 40 mg oral tablet (20 sources)Loop DiureticStart: 00-24-0226sbqk 1 tablet by mouth once daily Furosemide 40 mg tablet Active 40 MG PO Daily 30 28 05January 30, 2025 6:29pm Complies with drug therapyStart: 02-16-2024 End: 57-63-8161qmnf 1 tablet by mouth once dailyFurosemide 40 mg tablet Discontinued 0 .ROUTE .COMPLEX 30 February 16, 2024 9:33pm January 30, 2025 6:29pm TAKE ONE TABLET BY MOUTH DAILYStart: 91-46-0170jedk 1 tablet by mouth every other dayfurosemide (Lasix) 40 MG tablet Take 40 mg by mouth every other day 12/24/2022 ActiveStart: 12-24-2022 End: 94-42-1790imum 1 tablet by mouth once dailyFurosemide 40 mg tablet Discontinued 40 MG PO Daily 30 30 5 August 17, 2023 1:00am January 9:33pmtake 5 tablets by mouth every twenty-four hoursFurosemide 40 MG 5 mL Oral Once a day for 30 days Activegabapentin 300 mg oral capsule (20 sources)Anti-epileptic AgentStart: 64-18-5982vfzb 1 capsule by mouth once dailyGabapentin 300 mg capsule Active 0 .ROUTE .COMPLEX 90 1 February 13, 2025 1:25pm TAKE ONE CAPSULE BY MOUTH ONCE DAILY Complies with drug therapyStart: 02-24-2018 End: 24-47-9684fsyc 1 capsule by mouth once dailyGabapentin 300 mg capsule Discontinued 300 MG PO Daily 90 90 1 August 08, 2024 4:27pm February 13, 2025 1:25pmGabapentin ActivehydrALAZINE hydrochloride 50 mg oral tablet (3 sources)Arteriolar VasodilatorStart: 18-73-2050kntrFVJUWYX (APRESOLINE) 50 mg tablet 09/15/2022 Active3 ml insulin aspart, human 100 unt/ml pen injector (5 sources)Insulin AnalogStart: 14-51-1157deilnh 100 [IU] by subcutaneous injection onceFiasp FlexTouch 100 UNIT/ML Per sliding scale Subcutaneous Mar, Activeinsulin aspart, niacinamide, (FIASP FLEXTOUCH U-100 INSULIN) 100 unit/mL (3 mL) insulin pen Inject under the skin. Sliding Scale Active3 ml insulin glargine 100 unt/ml pen injector (18 sources)Insulin AnalogStart: 01-02-2025 End: 60-55-2542iulecbc glargine (Lantus SoloStar) 100 UNIT/ML pen Indications: Type 2 diabetes mellitus with ftxar4e chronic kidney disease, with long-term current use of insulin (HCC) INJECT 24 UNITS UNDER THE SKIN DAILY 15 mL 01/02/2025 01/02/2026 ActiveStart: 12-21-2023 End: 99-10-9136qvggggp glargine (Lantus SoloStar) 100 UNIT/ML pen Indications: Type 2 diabetes mellitus with tvyvz5h chronic kidney disease, with long-term current use of insulin (HCC) Inject 24 Units under the skin Daily 30 mL 3 12/21/2023 ActiveStart: 50-00-1170Ancvvsa Glargine (Lantus Solostar U-100 Insulin) 100 unit/mL (3 mL) insulin pen Active 22 UNIT SUBCUT Every morning September 23, 2023 12:00am Complies with drug therapyStart: 83-69-8385Lwnbmy SoloStar 100 UNIT/ML 22 units Subcutaneous qd for 30 days Mar, Active Start: 11-31-2587WCAPBB SOLOSTAR U-100 INSULIN 100 unit/mL (3 mL) insulin pen 08/18/2022 ActiveStart: 66-44-2634ZAOHAW SOLOSTAR U-100 INSULIN 100 unit/mL (3 mL) insulin pen INJECT 24 UNITS SUBCUTANEOUSLY ONCE DAILY 08/18/2022 Active lisinopril 10 mg oral tablet (10 sources)Angiotensin Converting Enzyme InhibitorStart: 16-35-6742tkjygqiqqD (PRINIVIL,ZESTRIL) 10 mg tablet 09/15/2022 Activelubiprostone 0.024 mg oral capsule (2 sources)Chloride Channel Activatortake 1 capsule by mouth twice daily lubiprostone (Amitiza) 24 MCG capsule Take 1 capsule twice a day by oral route. Activemupirocin 0.02 mg/mg topical ointment (2 sources)RNA Synthetase Inhibitor AntibacterialStart: 15-56-8260Krpesjsph 2 % ointment Active 1 APPLIC TOPICAL Twice daily 22 10 0 October 26, 2024 12:00am Complies with drug therapypolyethylene glycol 3350 25874 mg powder for oral solution (13 sources)Osmotic LaxativeStart: 85-90-7979WaflLqr 17 GM/SCOOP 1 scoop mixed with 8 ounces of fluid Orally Once a day for 30 days Mar,ctivetake 17 g by mouth in the morningpolyethylene glycol, PEG, 3350 (Miralax) 17 g packet Take 17 g by mouth in the morning. ActivePolyethylene Glycols (3 sources)Polyethylene Glycol Activerosuvastatin calcium 40 mg oral tablet (20 sources)HMG-CoA Reductase InhibitorStart: 03-02-2024 End: 93-65-3922mfeg 1 tablet by mouth once daily in the eveningRosuvastatin 40 mg tablet Active 0 .ROUTE .COMPLEX 90 3 February 28, 2025 10:19am TAKE ONE TABLETBY MOUTH DAILY IN THE EVENING Complies with drug therapyStart: 02-24-2018 End: 51-45-1496oyqq 1 tablet by mouth once dailyRosuvastatin 40 mg Tablet Discontinued 40 MG PO Daily February 24, 2018 12:00am March 02:29am Rosuvastatin Calcium Activesotalol hydrochloride 120 mg oral tablet (13 sources)AntiarrhythmicStart: 27-73-6567ruks 1 tablet by mouth every twelve hoursSotalol HCl 120 MG 1 tablet Orally every 12 hrs for 30 days Mar, ActiveStart: 74-88-1945arsk 1 tablet by mouth in the morningsotaloL (BETAPACE) 80 mg tablet Take 1 tablet (80 mg total) by mouth in the morning. 04/02/2020 Activetamsulosin hydrochloride 0.4 mg oral capsule (20 sources)alpha-Adrenergic BlockerStart: 11-94-3425jquj 1 capsule by mouth twice dailyTamsulosin 0.4 mg capsule Active 0 .ROUTE .COMPLEX 180 May 02, 2024 9:46pm TAKE ONE CAPSULEBY MOUTH TWICE A DAY Complies with drug therapy Start: 53-78-8296Kbyqdttrws HCl 0.4 MG 2 Orally Once a day for 30 days Mar, ActiveStart: 07-04-8682ovto 1 capsule by mouth every twenty-four hours in the morningtamsulosin (Flomax) 0.4 MG 24 hr capsule Indications: Benign prostatic hyperplasia with urinary frequency Take 1 capsule (0.4 mg) by mouth in the morning. 30 capsule 05/14/2023 ActiveStart: 02-24-2018 End: 73-23-6373giux 1 capsule by mouth once dailyTamsulosin 0.4 [...] (9 sources)Dihydropyridine Calcium Channel BlockerStart: 02-24-2018 End: 91-85-4863fmob 1 tablet by mouth once dailyAmlodipine 5 mg Tablet Discontinued 5 MG PO Daily February 24, 2018 12:00am September 22, 2023 2:15pm amLODIPine Besylate Activeazithromycin 250 mg oral tablet (1 source)Macrolide AntimicrobialStart: 01-16-2025 End: 01-46-5484Dcxxezbnyorq 250 mg tablet Discontinued 250 MG PO .COMPLEX 6 5 0 January 16, 2025 12:00am April 25, 2025 1:32pm 2 tabs on first day followed by 1 tab on days 2-5cephalexin 500 mg oral capsule (3 sources)Cephalosporin AntibacterialStart: 11-03-2024 End: 19-00-4582pasn 1 capsule by mouth twice dailyCephalexin 500 mg capsule Discontinued 500 MG PO Twice daily 28 14 0 November 03, 2024 12:46pm April 25, 2025 1:32pmStart: 10-26-2024 End: 32-25-6580huax 1 capsule by mouth three times dailyCephalexin 500 mg capsule Discontinued 500 MG PO Three times daily 21 7 0 October 26, 2024 12:00am November 03, 2024 12:47pmempagliflozin 10 mg oral tablet (3 sources)Sodium-Glucose Cotransporter 2 InhibitorStart: 09-02-2024 End: 56-52-7887okwc 1 tablet by mouth once daily in the morningEmpagliflozin (Jardiance) 10 mg tablet Discontinued 10 MG PO Every morning 30 30 0 September 02, 2024 1:00am September 06, 2024 2:25pm24 hr metoprolol succinate 25 mg extended release oral tablet (9 sources)beta-Adrenergic BlockerStart: 02-24-2018 End: 13-57-9962rjiz 1 tablet by mouth once dailyMetoprolol Succinate 25 mg Tablet Extended Release 24 Hr Discontinued 25 MG PO Daily February 24, 2018 12:00am September 22, 2023 2:15pmMetoprolol Tartrate Activesulfamethoxazole 800 mg / trimethoprim 160 mg oral tablet (7 sources)Dihydrofolate Reductase Inhibitor Antibacterial, Sulfonamide AntimicrobialStart: 43-44-8283gjab 1 tablet by mouth every twelve hoursBactrim DS 800-160 MG 1 tablet Orally Twice a day for 10 days Aug, Not-Cnwpps35 hr traMADol hydrochloride 100 mg extended release oral tablet (9 sources)Opioid AgonistStart: 02-24-2018 End: 42-07-2949forw 1 tablet by mouth once dailyTramadol 100 mg Tablet Extended Release 24 Hr Discontinued 100 MG PO Daily February 24, 2018 12:00am September 22, 2023 2:15pmtraMADol HCl Active Problems Active Problems Problem ClassificationProblemDateDocumented DateEpisodic/ChronicAcute cerebrovascular disease (1 source)Cerebral infarction; Translations: [Cerebral infarction, unspecified] ChronicAcute myocardial infarction (8 sources)Myocardial infarction; Translations: [Acute myocardial infarction, unspecified]Onset: 670193-43-0633UchdgzxNedqntn dysrhythmias (20 sources)Unspecified atrial fibrillation; Translations: [Paroxysmal atrial fibrillation]Onset: 34-67-2586LhmqamjQxvoypb kidney disease (20 sources)Chronic kidney disease stage 3A ; Translations: [Stage 3a chronic kidney disease]Onset: 924964-40-0021PpoaldtMzftvsu ulcer of skin (3 sources)Ulcer of skin of lower extremity; Translations: [Non-pressure chronic ulcer of unspecified part of left lower leg with unspecified severity] 83-52-3594SdmnambXalsqbhwwe disorders (9 sources)Presence of cardiac pacemaker; Translations: [Cardiac pacemaker in situ]Onset: 428624-58-7187IlgzaseDalwbnr on above:Dual chamber pacemaker in situCongestive heart failure; nonhypertensive (4 sources)Acute combined systolic (congestive) and diastolic (congestive) heart failure; Translations: [Acutecombined systolic and diastolic heart failure] Onset: 45-33-6899DzlszyxTbzptfdv atherosclerosis and other heart disease (20 sources)Old myocardial infarction; Translations: [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]Onset: 03-07-7137JsjjdcwDstvcir on above:Echo: LVEF 60%, PHILIPPE, decreased RV function, RVSP 01/2023Echo: LVEF 60%, PHILIPPE, decreased RV function, RVSP 35 01/2023,Echo: LVEF 45-50%, PHILIPPE, normal RV sizew/ decreased function, RVSP 01/2025Deficiency and other anemia (1 source)Anemia; Translations: [Anemia, unspecified]EpisodicDiabetes mellitus with complications (20 sources)Hyperglycemia due to type 2 diabetes mellitus; Translations: [Type 2 diabetes mellitus with hyperglycemia]Onset: 62-89-0171MsmcldeXumcedmm mellitus without complication (2 sources)Type 2 diabetes mellitus without complications; Translations: [Type 2 diabetes mellitus without complication]Onset: 24-30-4187HkbstalEsrpnhqof of lipid metabolism (20 sources)Hyperlipidemia, unspecified; Translations: [Pure hypercholesterolemia]Onset: 63-65-8437JtpeutrUtjagubqj hypertension (20 sources)Essential (primary) hypertension; Translations: [Benign essential hypertension]Onset: 20-47-9109LgioccuQnncmpgscxgmh symptoms and ill-defined conditions (3 sources)Dysuria; Translations: [Dysuria]Onset: 47-77-9343IvztquxoOskcrqsoita of prostate (20 sources)Benign prostatic hyperplasia without lower urinary tract symptoms; Translations: [Lower urinary tract symptoms due to benign prostatic hypertrophy] Onset: 51-89-9385NjitsafYyfdvylinxlh with complications and secondary hypertension (1 source)Hypertensive heart disease with heart failure; Translations: [HTN HEART DISEASE W/HEART FAIL]Onset: 37-47-6110LgwokrpRgjahavfanycp and screening for infectious disease (2 sources)Encounter for immunization; Translations: [Vaccination given]Onset: 51-08-6196UmxpxzufUkynftgqz or stenosis of precerebral arteries (5 sources)Occlusion and stenosis of unspecified carotid artery; Translations: [Occlusion and stenosis of bilateral carotid arteries]Onset: 92-31-7669Xwywpst Other aftercare (1 source)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; Translations: [INFORMATICS COORDINATOR (CURRENT) USE OF ASPIRIN]Onset: 23-23-2818RapdsyejMnbkg aftercare (1 source)Long-term current use of drug therapy; Translations: [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]EpisodicOther aftercare (1 source)Long-term current use of anticoagulant; Translations: [custodial (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 anticoagulants]EpisodicOther aftercare (13 sources)Long-term current use of insulin; Translations: [custodial (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 insulin]47-52-1204NfuxusioVcrdq aftercare (1 source)custodial (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 insulinEpisodicOther aftercare (1 source)Other fpc (current) drug therapyEpisodicOther and ill-defined heart disease (1 source)Heart disease; Translations: [Heart disease, unspecified]ChronicOther and unspecified benign neoplasm (11 sources)Polyp of colon; Translations: [Polyp of colon]EpisodicOther circulatory disease (1 source)Other specified symptoms and signs involving the circulatory and respiratory systems; Translations:[OTH SPEC SX SIGNS INVLV CIRC RS]Onset: 60-76-2991ErxmlxsyZzzxh circulatory disease (4 sources)Carotid bruit; Translations: [Other specified symptoms and signs involving the circulatory and respiratory systems]Onset: 582738-74-8805 EpisodicOther connective tissue disease (8 sources)Swelling of bilateral lower limbs; Translations: [Other specified soft tissue disorders]Onset: 624115-96-7757DbewexjvIxujb diseases of veins and lymphatics (15 sources)Peripheral venous insufficiency; Translations: [Venous insufficiency (chronic) (peripheral)]09-73-9695PjpwrwxhGwyzr diseases of veins and lymphatics (7 sources)Venous insufficiency (chronic) (peripheral); Translations: [Venous (peripheral) insufficiency, unspecified]EpisodicOther diseases of veins and lymphatics (6 sources)Venous insufficiency of leg; Translations: [Venous insufficiency (chronic) (peripheral)]28-05-1562BehlhhjxEnhlg gastrointestinal disorders (1 source)Irritable bowel syndrome characterized by constipation; Translations: [Irritable bowel syndrome with constipation]Onset: 36-96-0118CyndharCntmf gastrointestinal disorders (11 sources)Constipation; Translations: [Constipation, unspecified]EpisodicOther gastrointestinal disorders (17 sources)Altered bowel function; Translations: [Change in bowel habit] 49-76-8019RbwptsenCmtuqjx on above:Problem List clean-up per request of Phys. EHR CmteOther injuries and conditions due to external causes (4 sources)Exhaustion due to excessive exertion, initial encounter; Translations: [EXHAUSTION D/T EXCESS EXERTION INIT]Onset: 88-34-0810Vqterpzb Other injuries and conditions due to external causes (1 source)History of fall; Translations: [History of falling]EpisodicOther nervous system disorders (1 source)Polyneuropathy, unspecified; Translations: [POLYNEUROPATHY, UNSPECIFIED]Onset: 35-48-8413HzronreZdhfh nervous system disorders (1 source)Hereditary peripheral neuropathy; Translations: [Unspecified hereditary and idiopathic peripheral neuropathy]Onset: 84-19-5587BqmzlyyHbyiq nervous system disorders (8 sources)Neuropathy; Translations: [Polyneuropathy, unspecified]Onset: 660486-42-1631VxkkaamBumvx non-traumatic joint disorders (1 source)Arthralgia of the pelvic region and thigh; Translations: [Pain in left hip]EpisodicOther nutritional; endocrine; and metabolic disorders (13 sources)Obese class I; Translations: [Body mass index (BMI) 31.0-31.9, adult]Onset: 49-39-1178DpvfntmRubgk nutritional; endocrine; and metabolic disorders (7 sources)Obesity; Translations: [Obesity, unspecified]30-37-9543YbnsdsyFpeow nutritional; endocrine; and metabolic disorders (1 source)Simple obesity ; Translations: [Other obesity due to excess calories] ChronicOther nutritional; endocrine; and metabolic disorders (1 source)Body mass index 30+ - obesity; Translations: [Body mass index 31.0- 31.9, adult]Onset: 32-25-1694BakzshhNhpdx nutritional; endocrine; and metabolic disorders (4 sources)Obesity, unspecified; Translations: [Obesity, unspecified]03-28-2024 ChronicOther nutritional; endocrine; and metabolic disorders (12 sources)Severe obesity; Translations: [Class 2 severe obesity due to excess calories with serious comorbidity and body mass index (BMI) of 36.0 to 36.9 in adult ([facility])]Onset: 564444-75-0933QghizdsOwbsd nutritional; endocrine; and metabolic disorders (12 sources)Weight loss; Translations: [Abnormal weight loss]97-10-8540Ujtpbjjm Other screening for suspected conditions (not mental disorders or infectious disease) (6 sources)Encounter for screening for malignant neoplasm of prostate; Translations: [Patient encounter status]EpisodicPeripheral and visceral atherosclerosis (12 sources)Peripheral vascular disease, unspecified; Translations: [Peripheral vascular disease]Onset: 09-15-2022 Resolved: 34-73-8615HgypdyuUncrsxyv codes; unclassified (1 source)Requires influenza virus vaccination; Translations: [Need for prophylactic vaccination and inoculation, Influenza]EpisodicSkin and subcutaneous tissue infections (2 sources)Abscess of foot; Translations: [Cutaneous abscess of left foot] Resolved: 86-47-4989CxbfnqveOjimwixtmpl; intervertebral disc disorders; other back problems (1 source)Lumbosacral spondylosis without myelopathy; Translations: [Spondylosis without myelopathy or radiculopathy, lumbar region]ChronicSpondylosis; intervertebral disc disorders; other back problems (1 source)Low back pain; Translations: [Low back pain, unspecified]Episodic Substance-related disorders (4 sources)Tobacco user; Translations: [Nicotine dependence, cigarettes, uncomplicated]Onset: 01-62-9276YxevgkmCvpiucijvnn injury; contusion (3 sources)Abrasion, left lower leg, subsequent encounter; Translations: [Abrasion of left lower leg, subsequent encounter]94-80-9811ZjgflyreUwlxkexoccdy (2 sources)Unknown / UNK(Unknown)Onset: 39-05-3678Pytmhgmxqsiw (3 sources)LOW BACK PAIN, UNSPECIFIED; Translations: [LOW BACK PAIN, UNSPECIFIED]Onset: 65-25-8768Amkhhbysrnqr (1 source)Long-term current use of drug therapy; Translations: [Long-term (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 other medications]Onset: 76-60-9898Kripxnqnhgip (2 sources)Other persistent atrial fibrillation; Translations: [Other persistent atrial fibrillation]Onset: 24-86-3484Ikemk infection (5 sources)COVID-19; Translations: [Disease caused by 2019-nCoV]Onset: 02-07-2022 Past or Other Problems Problem ClassificationProblemDateDocumented DateEpisodic/ChronicCardiac dysrhythmias (4 sources)Bradycardia, unspecified; Translations: [BRADYCARDIA UNSPECIFIED] Onset: 67-79-1320ZgwykwrqWdowkrg kidney disease (1 source)Chronic kidney diseaseComplication of device; implant or graft (7 sources)Displacement of cardiac electrode, initial encounter; Translations: [Displacement of other cardiac electronic device, initial encounter]Onset: 25-13-3468MebtrwtrZvlvpddx atherosclerosis and other heart disease (1 source)Presence of coronary angioplasty implant and graft; Translations: [PRESENCE OF CORONARY ANGIOPLASTYIMPLANT AND GRAFT]Onset: 48-00-4862Tyfdmcom Malaise and fatigue (1 source)Malaise and fatigue; Translations: [Other malaise and fatigue]Onset: 67-99-2544OvvtbxgzQwjgota (1 source)Onychomycosis due to dermatophyte ; Translations: [Tinea unguium] Onset: 74-09-3413MrivyrxzWjrrdvcpzky chest pain (4 sources)Chest pain, unspecified; Translations: [Chest pain]Onset: 04-23-2015 EpisodicOther aftercare (2 sources)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; Translations: [INFORMATICS COORDINATOR (CURRENT) USE OF ANTICOAGULANTS]Onset: 28-75-9723XicpvgqsRwhhd aftercare (1 source)custodial (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 antithrombotics/antiplatelets; Translations: [CORRECTION (CURRENT) USE OFANTITHROMBOTICS/ANTIPLATELETS]Onset: 71-42-7629OhvejfgvFjiag circulatory disease (1 source)Cardiovascular symptoms; Translations: [Other specified symptoms and signs involving the circulatory and respiratory systems] Resolved: 09-04-1359UxdlvsuzTzrpg circulatory disease (1 source)H/O: cardiovascular disease; Translations: [Personal history of other diseases of the circulatory system] Resolved: 05-72-4769JrisgzmtCxfqd gastrointestinal disorders (1 source)Other specified symptoms and signs involving the digestive system and abdomen; Translations: [Oth symptoms and signs involving the dgstv sys and abdomen]Onset: 44-35-4166UldblxctYhryf lower respiratory disease (1 source)Dyspnea; Translations: [Dyspnea, unspecified]Onset: 98-10-2332Qkqmwngz Other nervous system disorders (1 source)Paresthesia; Translations: [Paresthesia of skin]Onset: 09-19-2014 EpisodicOther non-traumatic joint disorders (1 source)Pain in left hip; Translations: [PAIN IN LEFT HIP]Onset: 12-06-2021 EpisodicOther nutritional; endocrine; and metabolic disorders (1 source)Abnormal weight loss; Translations: [Abnormal weight loss]Onset: 17-77-0143BjudoutcGnurn skin disorders (1 source)Ingrowing nail; Translations: [Ingrowing nail] Resolved: 36-99-4716HmbxqileThbqs skin disorders (1 source)Nail bed infection; Translations: [Onychia and paronychia of toe] Onset: 08-89-2963HfkuowocQcpvlokj codes; unclassified (2 sources)Tobacco user; Translations: [Tobacco use]Onset: 18-31-1452Ostijitw Residual codes; unclassified (1 source)Sleep disorder; Translations: [Persistent disorder of initiating or maintaining sleep]Onset: 83-41-8609EmcsbmrxRhqykwijl and history of mental health and substance abuse codes (2 sources)Personal history of nicotine dependence; Translations: [History of tobacco use]Onset: 61-32-3989VwpkdroiQvbdaugfilxg (1 source)LOW BACK PAIN, UNSPECIFIED; Translations: [LOW BACK PAIN, UNSPECIFIED] Onset: 12-02-2021 Results Test NameValueInterpretationReference RangeFacilityOrders Onlyon 04-09-2025 Orders [id number] Beach 1940 M Date Provider Department Center 04/09/2025 Radha-JULITO MARTINEZ PSYCHIATRIC CARD [facility] Family History Family Status - Relation Status Age at Mother Father DeceasedNormalUniversSelect Medical Specialty Hospital - [facility] NorthPrep for Procedureon 79-27-2034Tunk for [id number] Beach 1940 M Date Provider Department Center 02/22/2025 Hugh-GLO CALL PSYCHIATRIC VASC LAB [place] [facility] Family History Family Status - Relation Status Age at Mother Father DeceasedNormalUniversohio [facility] ClinicsOrders Onlyon 02-07-2025 Orders [id number] Beach 1940 M Date Provider Department Center 02/07/2025 [id number], HISTORICAL JUAN [facility] Family History Family Status - Relation Status Age at Mother Father DeceasedNormalUniversity of [facility] Hospital And ClinicsOffice Visiton 27-44-9284Qcffoy-up [id number] Menendez 1940 M Date Provider Department Center 01/17/2025 Rich-CHRIS ANDUJAR JUAN A [facility] Family History Family Status - Relation Status Age at Mother Father Level of Service:44594 [place] OFFICE/OUTPATIENT ESTABLISHED LOW MDM 20 [facility] HospitalHbA1c (Bld) [Mass fraction]on 01-12-2025 Interpretation and review of laboratory resultsAbKresge Eye Institute HealthcareLaboratory - Hematology and Cell countson 54-34-7652FdG2m (Bld) [Mass fraction]8.3 %NOMS HealthcareSEGMENTAL BLOOD PRESSUREon 16-58-4176ThdTye, [place] [address] Cardiology Report Signed Patient: YAJAIRA BARROSO MR#: [id number] : 1940 Acct:[id number] Age/Sex: 84 / M ADM Date: 12/19/24 Loc: CARD Attending Dr: Oliver Fitzgerald M.D. Ordering Physician: Oliver Fitzgerald M.D. Date of Service: 12/19/24 Procedure(s): CA segmental UE or LE LUNA Accession Number(s): [id number] cc: Julio Patton D.O.; Oliver Fitzgerald M.D. 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 Interpretive Statements [...] FATIMA Signed By: 12/19/24183612/19/241836 DD/ 1508 TD/TT: Biomedical Engineering Internship:TBHRadiology, Radiologist, - 12/20/2024 [place] [address] Cardiology Report Signed Patient: YAJAIRA BARROSO MR#: [id number] : 1940 Acct:[id number] Age/Sex: 84 / M ADM Date: 12/19/24 Loc: CARD Attending Dr: Oliver Fitzgerald M.D. Ordering Physician: Oliver Fitzgerald M.D. Date of Service: 12/19/24 Procedure(s): CA segmental UE or LE LUNA Accession Number(s): [id number] cc: Julio Patton D.O.; Oliver Fitzgerald M.D. [facility] Test Date: 2024-12-19 Pat Name: YAJAIRA BARROSO Department: Room: - Gender: Male Banana Ripening Room Supervisor: Therese Craven : 1940 Requested By: 1892 Order Number: [id number] Reading MD: BLAINE FATIMA M.D. Interpretive Statements [...] FATIMA Signed By: 12/19/24183612/19/241836 DD/ 1508 TD/TT: Biomedical Engineering Internship: [facility] HealthcareRadiology Study observation (narrative)[facility] LouisSEENTAL BLOOD PRESSUREOrdered By: Radiologist Radiology on 47-24-4393WMNH [facility] [employer] Work Phone: Estimated glomerular filtration rate (GFR) non- Americanon 39-09-5769YNG/1.73 sq M.predicted among non-blacks MDRD (S/P/Bld) [Vol rate/Area]Estimated glomerular filtration rate (GFR) non- Low>=60 mL/min/1.73m 2FPike Community HospitalLaboratory - Chemistry and Chemistry - challengeon 52-75-9081Bgphyqi [Mass/Vol]9.3 mg/dL8.5-10.1 [facility] HospitalChloride [Moles/Vol]103 mmol/T11-184FefyumpisMercy Health Urbana HospitalCO2 [Moles/Vol]32.1 mmol/LHigh21.0-32.0[facility] HospitalCreatinine [Mass/Vol]1.68 mg/dLHigh0.70-1.30[facility] HospitalGFR/1.73 sq M.predicted MDRD (S/P/Bld) [Vol rate/Area]47 mL/min/{1.73_m2}Low>=60 mL/min/1.73m 2FPike Community HospitalGlucose [Mass/Vol]187 mg/aZZppa73-562BbyjomjloMercy Health Urbana HospitalPotassium [Moles/Vol]5.0 mmol/L3.5-5.1FDayton Osteopathic Hospitalodium [Moles/Vol] 139 mmol/C156-373BqqywvoglMercy Health Urbana HospitalUrea nitrogen [Mass/Vol]30.0 mg/dLHigh7.0-18.0[facility] HospitalUrea nitrogen/Creatinine [Mass ratio]17.9 mg/mgMercy Health Urbana HospitalMicroalbumin [Mass/volume] in Urineon 31-47-8246Awqgupg DL <= 20 mg/L (U) [Mass/Vol]Microalbumin [Mass/volume] in Urine<=30.0[facility] HospitalNo Panel Informationon 86-39-0975Lppfi Random Wahhvpbkbt87.37 mg/dL20.00-300.00[facility] Hospitalerum or plasma anion gap determinationon 56-55-0416Nbptj gap [Moles/Vol]Serum or plasma anion gap determinationMercy Health Urbana HospitalUrine microalbumin/creatinine mass ratioon 09-00-4571Whbjpis/Creatinine DL <= 20 mg/L (U) [Mass ratio]Urine microalbumin/creatinine mass ratioHigh0.0-29.9 [facility] HospitalComment on above:NO MICROALBUMINURIA 0-29 MG/GCLINICAL MICROALBUMINURIA 30-300 MG/GMACROALBUMINURIA >300 MG/GOffice Visit on 19-46-5238Djmskd-up [id number] Yajaira Barroso 1940 M Date Provider Department Center 06/07/2024 CHRIS JAFFE [facility] No family history on file Level of Service:07202 [place] OFFICE/OUTPATIENT ESTABLISHED LOW MDM 20 [facility] HospitalHbA1c (Bld) [Mass fraction]on 05-16-2024 Interpretation and review of laboratory resultsAbKresge Eye Institute HealthcareLaboratory - Hematology and Cell countson 10-80-5889DsE2f (Bld) [Mass fraction]8.8 %[facility]OM[facility] HealthcareSEENTAL BLOOD PRESSUREon 85-34-4170Xcm[place]ye, [place] [address] Cardiology Report Signed Patient: YAJAIRA BARROSO MR#: [id number] : 1940 Acct:[id number] Age/Sex: 83 / M ADM Date: 11/09/23 Loc: JUAN A Attending Dr: Oliver Fitzgerald M.D. Ordering Physician: Oliver Fitzgerald M.D. Date of Service: 11/09/23 Procedure(s): CA segmental UE or LE LUAN Accession Number(s): [id number] cc: Julio Patton D.O.; Oliver Fitzgerald M.D. 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 PVR waveforms [...] Signed On 11-09-2023 23:10:31 EDT by JULIO PATTON Dictated By: Julio Patton D.O. Signed By: 11/09/23230911/09/23 231 DD/ 1334 TD/TT: Biomedical Engineering Internship:TBHRadiology, Radiologist, - 11/10/2023 [place] [address] Cardiology Report Signed Patient: YAJAIRA BARROSO MR#: [id number] : 1940 Acct:[id number] Age/Sex: 83 / M ADM Date: 11/09/23 Loc: CARD Attending Dr: Oliver Fitzgerald M.D. Ordering Physician: Oliver Fitzgerald M.D. Date of Service: 11/09/23 Procedure(s): CA segmental UE or LE LUNA Accession Number(s): [id number] cc: Julio Patton D.O.; Oliver Fitzgerald M.D. [facility] Test Date: 2023-11-09 Pat Name: YAJAIRA BARROSO Department: Room: - Gender: Male Banana Ripening Room Supervisor: : 1940 Requested By: 1892 Order Number: [id number] Reading MD: JULIO PATTON Interpretive Statements Monophasic doppler waveforms. PVR waveforms [...] Signed On 11-09-2023 23:10:31 EDT by JULIO PATTON Dictated By: Julio Patton D.O. Signed By: 11/09/23 23111/09/23 2310 DD/ 1334 TD/TT: Biomedical Engineering Internship: [facility] HealthcareRadiology Study observation (narrative)[facility] LouisSEENTAL BLOOD PRESSUREOrdered By: Radiologist Radiology on 19-50-7318XZWK Healthcare Work Phone: ECHOCARDIO M/2D COMPLETEon 34-13-2219KFGEEEHAPW M/2D COMPLETEPatient: YAJAIRA BARROSOLelo Exam Date: 10/24/2022 : 1940 Gender:M Ordering : CHRIS ANDUJAR Admission #: [id number] Family : DR JULIO PATTON D.O. Order #: [id number] CLICK HERE TO VIEW EXAM ECHOCARDIOGRAM REPORT [...] by: Scotty Terry M.D. on 10/24/2022 at 16:29[facility] HospitalUrinalysis - DIPSTICKon 84-38-1159Exrspzgdeg (U)cloudyNorth YouData Other Bilirubin Ql (U)smallAsset Marketing Services Other Color (U)brown[address] [place] [employer] Other Glucose Ql (U)+[employer] Other Hemoglobin Ql (U)NegativeAsset Marketing Services Other Ketones Ql (U)trace[address] [place] [employer] Other Leukocyte esterase Test strip Ql (U)moderate[address] [place] [employer] Other Nitrite Ql (U)PositiveAsset Marketing Services Other pH (U)6.5 [pH][employer] Other Protein Ql (U)++++[employer] Other Specific gravity (U) [Rel density]1.000[facility] You[employer] Other Urobilinogen (U) [Mass/Vol]0.2 mg/dL[address] [place] [employer] Other Urinalysis - DIPSTICK80 [place] [employer] Other PROF CHEM 8 (BAS METB)on 53-96-4517Kjmoc gap [Moles/Vol]7.6 mmol/LNormalFirelands Regional Medical CenterComment on above:Performed By: #### BMP #### [facility] [address] [place] [address] Dr. Shruti RoperCalcium [Mass/Vol]8.6 mg/dLNormal8.5-10.1[facility] Comment on above:Performed By: #### BMP #### [facility] [address] [place] [address] Dr. Shruti RoperChloride [Moles/Vol]105 mmol/PMdsaad38-232Ivv [facility] Comment on above:Performed By: #### BMP #### [facility] [address] [address] [address] Shruti RoperCO2 [Moles/Vol]30.7 mmol/ILfdhwb09.0-32.0[facility] Comment on above:Performed By: #### BMP #### [facility] [address] [place] [address] Dr. Shruti RoperCreatinine [Mass/Vol]1.18 mg/dLNormal0.70-1.30The [facility] HospitalComment on above:Performed By: #### BMP #### [facility] [address] [place] [address] Dr. Bahena ChangEGFR-AF SWISS>60Normal>=60The [facility] HospitalComment on above:Performed By: #### BMP #### [facility] [address] [place] [address] Dr. Shruti FoleyGFR-NON AF KVXENTYC09 mL/min/1.53t4Bzynwfntlw low>=60The [facility] HospitalComment on above:Performed By: #### BMP #### [facility] [address] [place] [address] Dr. Shruti RoperGlucose [Mass/Vol]205 mg/dLCritically ydgy71-327Uod [facility] HospitalComment on above:Performed By: #### BMP #### [facility] [address] [place] [address] Dr. Shruti RoperPotassium [Moles/Vol]4.3 mmol/LNormal3.5-5.1[facility] Comment on above:Performed By: #### BMP #### [facility] [address] [place] [address] Dr. Shruti RoperSodium [Moles/Vol]139 mmol/KMdvyxt446-962Wiq [facility] Comment on above:Performed By: #### BMP #### [facility] [address] [place] [address] Dr. Shruti Bernal nitrogen [Mass/Vol]17.0 mg/dLNormal7.0-18.0The [facility] HospitalComment on above:Performed By: #### BMP #### [facility] [address] [place] [address] Dr. Shruti Bernal nitrogen/Creatinine [Mass ratio]14.4 mg/mgNormalThe [facility] HospitalComment on above:Performed By: #### BMP #### [facility] [address] [place] [address] Dr. Shruti Shaikh AUTO DIFFon 10-15-7884MRVJ #0.0 103/ulNormal0.0-0.1The [facility] HospitalComment on above:Performed By: #### CBC #### [facility] [address] [place] [address] Dr. Shruti RoperBasophils/100 WBC (Bld)0.4 %Normal0.2-2.0[facility] Comment on above:Performed By: #### CBC #### [facility] [address] [place] [address] Dr. Shruti Barajas #0.1 103/ulNormal0.0-0.7The [facility] HospitalComment on above: Performed By: #### CBC #### [facility] [address] [place] [address] Dr. Shruti Foleyosinophils/100 WBC (Bld)1.5 %Normal0.9-7.0[facility] Comment on above:Performed By: #### CBC #### [facility] [address] [place] [address] Dr. Shruti Foleyrythrocyte distribution width (RBC) [Ratio]16.0 %Critically high 11.0-15.0The [facility] HospitalComment on above:Performed By: #### CBC #### [facility] [address] [place] [address] Dr. Shruti RoperHematocrit (Bld) [Volume fraction]44.5 %Vjdbnh90.0-54.0The [facility] HospitalComment on above:Performed By: #### CBC #### [facility] [address] [place] [address] Dr. Shruti RoperHemoglobin (Bld) [Mass/Vol]14.6 g/kRZoibjz24.0-18.0The [facility] HospitalComment on above:Performed By: #### CBC #### [facility] [address] [place] [address] Dr. Shruti Tubbs #0.04 10e3/ulCritically high0.00-0.03[facility] Comment on above:Performed By: #### CBC #### [facility] [address] [place] [address] Dr. Shruti Tubbs %0.4 %Normal0.0-0.5The [facility] HospitalComment on above: Performed By: #### CBC #### [facility] [address] [place] [address] Dr. Shruti Marroquin #2.6 103/ulNormal1.2-3.8The [facility] HospitalComment on above:Performed By: #### CBC #### [facility] [address] [place] [address] Dr. Shruti Rosadomphocytes/100 WBC (Bld)26.8 %Gkcakx33.5-60.0The [facility] HospitalComment on above:Performed By: #### CBC #### [facility] [address] [place] [address] Dr. Shruti YingUAL DIFF REQNONormalThe [facility] HospitalComment on above: Performed By: #### CBC #### [facility] [address] [place] [address] Dr. Shruti Cruz (RBC) [Entitic mass]26.7 qjGsakma44.9-34.0The [facility] HospitalComment on above:Performed By: #### CBC #### [facility] [address] [place] [address] Dr. Shruti Sheikh (RBC) [Mass/Vol]32.8 g/kYYirhrs54.9-35.2The [facility] HospitalComment on above:Performed By: #### CBC #### [facility] [address] [address] [address] Shruti SheikhV (RBC) [Entitic vol]81.5 zDLewwey98.0-94.0The [facility] HospitalComment on above:Performed By: #### CBC #### [facility] [address] [place] [address] Dr. Shruti Nova #1.0 103/ulCritically high0.3-0.8[facility] Comment on above:Performed By: #### CBC #### [facility] [address] [place] [address] Dr. Shruti Orourkeocytes/100 WBC (Bld)10.8 %Normal1.7-12.0[facility] Comment on above:Performed By: #### CBC #### [facility] [address] [place] [address] Dr. Shruti Quiñonez #5.8 103/ulNormal1.4-6.5The [facility] HospitalComment on above:Performed By: #### CBC #### [facility] [address] [place] [address] Dr. Shruti Ortegautrophils/100 WBC (Bld)60.1 %Qdjibs35.0-75.0The [facility] HospitalComment on above:Performed By: #### CBC #### [facility] [address] [place] [address] Dr. Shruti Levylet mean volume (Bld) [Entitic vol]10.5 fLNormal9.5-13.5The [facility] HospitalComment on above:Performed By: #### CBC #### [facility] [address] [place] [address] Dr. Shruti McguireT216 103/aoUjizrv027-527Ybh [facility] HospitalComment on above: Performed By: #### CBC #### [facility] [address] [address] [address] Shruti RoperRBC5.46 106/ulNormal4.70-6.10The [facility] HospitalComment on above:Performed By: #### CBC #### [facility] [address] [address] [address] Shruti RoperWBC9.6 103/ulNormal4.0-11.0The [facility] HospitalComment on above: Performed By: #### CBC #### [facility] [address] [address] [address] Shruti RoperPROF CHEM 8 (BAS METB)on 68-72-6334Yiwzx gap [Moles/Vol]8.9 mmol/LNormalThe [facility] HospitalComment on above:Performed By: #### BMP ####[facility] [address] [address]Dr. Shruti ChangCalcium [Mass/Vol]8.6 mg/dLNormal8.5-10.1The [facility] HospitalComment on above:Performed By: #### BMP ####[facility] [address] [place], [place] [address]Dr.Shruti ChangChloride [Moles/Vol]106 mmol/LNormal 98-107The [facility] HospitalCommclaren greater [facility] on above:Performed By: #### BMP ####[facility] [address] [address]Dr.Shruti ChangCO2 [Moles/Vol]31.3 mmol/MCelwgz47.0-32.0The [facility] HospitalCommclaren [facility] on above: Performed By: #### BMP ####[facility] [address] [address]Dr.Shruti ChangCreatinine [Mass/Vol]1.15 mg/dLNormal 0.70-1.30The [facility] HospitalCommclaren [facility] on above:Performed By: #### BMP ####[facility] [address] [place], [place] [address]Dr. Yilan ChangEGFR-AF SWISS>60Normal>=60The [facility] HospitalComment on above: Performed By: #### BMP ####[facility] [address] [address]Dr.Yilan ChangEGFR-NON AF SWISS>60Normal>=60The [facility] on above:Performed By: #### BMP ####[facility] [address] [place], [place] [address]Dr.Yilan ChangGlucose [Mass/Vol]117 mg/dLCritically bros30-024Ruj [facility] HospitalComment on above: Performed By: #### BMP ####[facility] [address] [place], [place] [address]Dr.Yilan ChangPotassium [Moles/Vol]4.2 mmol/LNormal 3.5-5.1The [facility] HospitalCommclaren [facility] on above:Performed By: #### BMP ####[facility] [address] [place], [place] [address]Dr.Yilan Roper Sodium [Moles/Vol]142 mmol/JLdbzqy034-097Uos [facility] on above: Performed By: #### BMP ####[facility] [address] [place], [place] [address]Dr.Yilan ChangUrea nitrogen [Mass/Vol]11.0 mg/dLNormal 7.0-18.0The [facility] on above:Performed By: #### BMP ####[facility] [address] [place], [place] [address]Dr. Yilan ChangUrea nitrogen/Creatinine [Mass ratio]9.6 mg/mgNormalThe [facility] HospitalCommclaren [facility] on above:Performed By: #### BMP ####[facility] [address] [place], [place] [address]Dr.Yilan ChangELECTROLYTESon 34-85-7712Tkaye gap [Moles/Vol]6.8 mmol/LNormalThe [facility] HospitalCommclaren [facility] on above:Performed By: #### ELEC ####[facility] [address] [place], [place] [address]Dr. Yilan ChangChloride [Moles/Vol]106 mmol/LNormal 98-107The [facility] HospitalCommclaren [facility] on above:Performed By: #### ELEC ####[facility] [address] [address]Dr. Shruti ChangCO2 [Moles/Vol]32.0 mmol/NHyjojy40.0-32.0The [facility] HospitalComment on above: Performed By: #### ELEC ####[facility] [address] [address]Dr. Shruti ChangPotassium [Moles/Vol]4.8 mmol/LNormal 3.5-5.1The [facility] HospitalComment on above:Performed By: #### ELEC ####[facility] [address] [address]Dr. Shruti ChangSodium [Moles/Vol]140 mmol/WRavwke095-933Pxa [facility] HospitalComment on above:Performed By: #### ELEC ####[facility] [address] [address]Dr. Shruti RoperPROTIMEon 11-98-7949YTZ Coag (PPP) [Relative time]1.04 {INR}NormalThe [facility] HospitalCommclaren [facility] on above:Performed By: #### PT #### [facility] [address] [place] [address] Dr. Shruti Laughlin GUIDELINESSEE [facility] Medical CenterComment on above:Result Comment: DESIRED INR: 2.0 - 3.0 CONDITIONS NOT LISTED BELOW 2.5 - 3.5 FOR PROSTHETIC HEART VALVE REPLACEMENT 2.5 - 3.5 RECURRENT THROMBOSIS Performed By: #### PT #### [facility] [address] [place] [address] Dr. Shruti RoperPT Coag (PPP) [Time]11.2 sNormal9.0-11.6ThMary [facility] Comment on above:Performed By: #### PT #### [facility] [address] [place] [address] Dr. Shruti RoperXR CHEST 2 Von 80-95-2993TP CHEST 2 VEXAM: CHEST 2 VIEWS HISTORY: [...] Electronically authenticated by: SCOTT JOHNSON Date: 2022-06-24 10:36[facility]ic[facility] HospitalXR CHEST 2 Von 36-90-0330HG CHEST 2 VEXAMINATION: XR CHEST 2 V [...] Electronically authenticated by: NICOLE THOMAS Date: 2022-05-07 15:08[facility] HospitalECHOCARDIO M/2D COMPLETEon 28-79-4834SAMUECNUDJ M/2D COMPLETE Patient: YAJAIRA BARROSO Exam Date: 04/01/2022 : 1940 Gender:M Ordering : DR JULIO PATTON D.O. Admission #: [id number] Family : DR BLAINE FATIMA M.D. Order #: [id number] CLICK HERE TO VIEW EXAM ECHOCARDIOGRAM REPORT [...] by: Scotty Terry M.D. on 04/02/2022 at 14:45NoSumma Health Wadsworth - Rittman Medical CenterPROF CHEM 8 (BAS METB)on 94-79-5566Vvovw gap [Moles/Vol]11.3 mmol/L NormalThe Berger HospitalComment on above:Performed By: #### BMP ####[facility] [address] [place], [place] [address]Dr.Yilan Roper Calcium [Mass/Vol]8.8 mg/dLNormal8.5-10.1The [facility] HospitalComment on above: Performed By: #### BMP ####[facility] [address] [place], [place] [address]Dr.Yilan ChangChloride [Moles/Vol]103 mmol/LNormal 98-107The [facility] HospitalCommclaren [facility] on above:Performed By: #### BMP ####[facility] [address] [place], [place] [address]Dr.Yilan ChangCO2 [Moles/Vol]30.7 mmol/FIicqwt47.0-32.0The [facility] on above: Performed By: #### BMP ####[facility] [address] [place], [place] [address]Dr.Yilan ChangCreatinine [Mass/Vol]1.28 mg/dLNormal 0.70-1.30The [facility] HospitalComment on above:Performed By: #### BMP ####[facility] [address] [place], [place] [address]Dr. Yilan ChangEGFR-AF SWISS>60Normal>=60The [facility] HospitalCommclaren greater [facility] on above: Performed By: #### BMP ####[facility] [address] [place], [place] [address]Dr.Yilan ChangEGFR-NON AF HAWHPOLW05 mL/min/1.73m2 Critically low>=60The [facility] HospitalCommclaren greater [facility] on above:Performed By: #### BMP ####[facility] [address]os[address] [place], [place] [address]Dr. Yilan ChangGlucose [Mass/Vol]106 mg/jRZbedqd33-575Agh [facility] on above:Performed By: #### BMP ####[facility] [address] [place], [place] [address]Dr.Yilan ChangPotassium [Moles/Vol]4.0 mmol/LNormal 3.5-5.1The [facility] HospitalCommclaren [facility] on above:Performed By: #### BMP ####[facility] [address] [place], [place] [address]Dr.Yilan Roper Sodium [Moles/Vol]141 mmol/HIhkbki487-920Sjs [facility] on above: Performed By: #### BMP ####[facility] [address] [place], [place] [address]Dr.Yilan ChangUrea nitrogen [Mass/Vol]18.0 mg/dLNormal 7.0-18.0The [facility] HospitalCommclaren [facility] on above:Performed By: #### BMP ####[facility] [address] [place], [place] [address]Dr. Yilan ChangUrea nitrogen/Creatinine [Mass ratio]14.1 mg/mgNormalThe [facility] on above:Performed By: #### BMP ####[facility] [address] [place], [place] [address]Dr.Meremichoacano ChangBNPon 48-65-7970Mvvyhpphezm peptide B (Bld) [Mass/Vol]1722.0 pg/mLNormal<=1,800.0The [facility] HospitalComment on above:Performed By: #### CMP, BNP, TSH ####[facility] [address] [address]Dr. Shruti Shaikh AUTO DIFFon 01-38-0281IBLW #0.0 103/ulNormal0.0-0.1The [facility] HospitalComment on above:Performed By: #### CBC #### [facility] [address] [address] [address] Shruti RoperBasophils/100 WBC (Bld)0.4 %Normal0.2-2.0[facility] Comment on above:Performed By: #### CBC #### [facility] [address] [place] [address] Dr. Shruti Barajas #0.2 103/ulNormal0.0-0.7The [facility] HospitalComment on above: Performed By: #### CBC #### [facility] [address] [place] [address] Dr. Shruti Foleyosinophils/100 WBC (Bld)2.4 %Normal0.9-7.0[facility] Comment on above:Performed By: #### CBC #### [facility] [address] [place] [address] Dr. Shruti Foleyrythrocyte distribution width (RBC) [Ratio]14.1 %Rdrlkf14.0-15.0 The Berger HospitalComment on above:Performed By: #### CBC #### [facility] [address] [place] [address] Dr. Shruti RoperHematocrit (Bld) [Volume fraction]43.1 %Lsnxop24.0-54.0The Berger HospitalComment on above:Performed By: #### CBC #### [facility] [address] [place] [address] Dr. Shruti RoperHemoglobin (Bld) [Mass/Vol]13.4 g/dLCritically low14.0-18.0The [facility] HospitalComment on above:Performed By: #### CBC #### [facility] [address] [place] [address] Dr. Shruti Tubbs #0.03 10e3/ulNormal0.00-0.03The Berger HospitalComment on above:Performed By: #### CBC #### [facility] [address] [place] [address] Dr. Shruti Tubbs %0.4 %Normal0.0-0.5The [facility] HospitalComment on above: Performed By: #### CBC #### [facility] [address] [place] [address] Dr. Shruti Marroquin #1.8 103/ulNormal1.2-3.8The [facility] HospitalComment on above:Performed By: #### CBC #### [facility] [address] [place] [address] Dr. Shruti Felixhocytes/100 WBC (Bld)25.6 %Oyivne09.5-60.0The [facility] HospitalCommclaren [facility] on above:Performed By: #### CBC #### [facility] [address] [place] [address] Dr. Shruti YingUAL DIFF REQNONormalThe Berger HospitalComment on above: Performed By: #### CBC #### [facility] [address] [place] [address] Dr. Shruti Sheikh (RBC) [Entitic mass]26.3 vsMiyzpf79.9-34.0The [facility] HospitalComment on above:Performed By: #### CBC #### [facility] [address] [place] [address] Dr. Shruti Sheikh (RBC) [Mass/Vol]31.1 g/cZEsssuc75.9-35.2The [facility] HospitalComment on above:Performed By: #### CBC #### [facility] [address] [place] [address] Dr. Shruti Sheikh (RBC) [Entitic vol]84.5 wJOrbqbq05.0-94.0The Berger HospitalComment on above:Performed By: #### CBC #### [facility] [address] [address] [address] Shruti Nova #0.7 103/ulNormal0.3-0.8The Berger HospitalComment on above:Performed By: #### CBC #### [facility] [address] [place] [address] Dr. Shruti Orourkeocytes/100 WBC (Bld)9.8 %Normal1.7-12.0[facility] Comment on above:Performed By: #### CBC #### [facility] [address] [place] [address] Dr. Shruti Quiñonez #4.3 103/ulNormal1.4-6.5The Berger HospitalComment on above:Performed By: #### CBC #### [facility] [address] [place] [address] Dr. Shruti Ortegautrophils/100 WBC (Bld)61.4 %Hslybp09.0-75.0The [facility] HospitalComment on above:Performed By: #### CBC #### [facility] [address] [place] [address] Dr. Shruti RoperPlatelet mean volume (Bld) [Entitic vol]11.8 fLNormal9.5-13.5The Berger HospitalComment on above:Performed By: #### CBC #### [facility] [address] [place] [address] Dr. Shruti RoperPLT206 103/hyAgnzem838-424Dhu Berger HospitalComment on above: Performed By: #### CBC #### [facility] [address] [place] [address] Dr. Shruti RoperRBC5.10 106/ulNormal4.70-6.10The Berger HospitalComment on above:Performed By: #### CBC #### [facility] [address] [place] [address] Dr. Shruti RoperWBC7.0 103/ulNormal4.0-11.0The Berger HospitalComment on above: Performed By: #### CBC #### [facility] [address] [address] [address] Shruti Oropeza 14(COMP METB)on 47-96-3090Qdumojc [Mass/Vol]3.1 g/dL Critically low3.4-5.0The [facility] Centerment on above:Performed By: #### CMP, BNP, TSH #### [facility] [address] [place] [address] Dr. Shruti RoperAlbumin/Globulin [Mass ratio]0.9 {ratio}NormalThe Berger HospitalComment on above:Performed By: #### CMP, BNP, TSH #### [facility] [address] [address] [address] Shruti Thomason [Catalytic activity/Vol]73 U/NPkxhnd99-729Dor [facility] HospitalComment on above:Performed By: #### CMP, BNP, TSH #### [facility] [address] [place] [address] Dr. Shruti MckeonT [Catalytic activity/Vol]13 U/LCritically gvk07-90Tug [facility] HospitalComment on above:Performed By: #### CMP, BNP, TSH #### [facility] [address] [address] [address] Shruti Mar gap [Moles/Vol]8.3 mmol/LNormalThe Berger HospitalComment on above:Performed By: #### CMP, BNP, TSH #### [facility] [address] [address] [address] Shruti RoperAST [Catalytic activity/Vol]13 U/LCritically lyq72-99Zlo [facility] HospitalComment on above:Performed By: #### CMP, BNP, TSH #### [facility] [address] [address] [address] Shruti RoperBilirubin [Mass/Vol]1.1 mg/dLCritically high0.2-1.0The [facility] Centerment on above:Performed By: #### CMP, BNP, TSH #### [facility] [address] [place] [address] Dr. Shruti RoperCalcium [Mass/Vol]8.6 mg/dLNormal8.5-10.1[facility] Comment on above:Performed By: #### CMP, BNP, TSH #### [facility] [address] [place] [address] Dr. Shruti RoperChloride [Moles/Vol]107 mmol/UWeleky52-657Gtc [facility] Comment on above:Performed By: #### CMP, BNP, TSH #### [facility] [address] [place] [address] Dr. Shruti RoperCO2 [Moles/Vol]31.7 mmol/PYhwgor50.0-32.0[facility] Comment on above:Performed By: #### CMP, BNP, TSH #### [facility] [address] [place] [address] Dr. Shruti RoperCreatinine [Mass/Vol]1.13 mg/dLNormal0.70-1.30The Berger HospitalComment on above:Performed By: #### CMP, BNP, TSH #### [facility] [address] [place] [address] Dr. Shruti FoleyGFR-AF SWISS>60Normal>=60The Berger HospitalComment on above:Performed By: #### CMP, BNP, TSH #### [facility] [address] [place] [address] Dr. Shruti FoleyGFR-NON AF SWISS>60Normal>=60The Berger HospitalComment on above:Performed By: #### CMP, BNP, TSH #### [facility] [address] [place] [address] Dr. Shruti RoperGlobulin (S) [Mass/Vol]3.4 g/dLNormalThe Berger HospitalComment on above:Performed By: #### CMP, BNP, TSH #### [facility] [address] [place] [address] Dr. Shruti RoperGlucose [Mass/Vol]145 mg/dLCritically snug85-100Iqc [facility] HospitalComment on above:Performed By: #### CMP, BNP, TSH #### [facility] [address] [place] [address] Dr. Shruti RoperPotassium [Moles/Vol]4.0 mmol/LNormal3.5-5.1[facility] Comment on above:Performed By: #### CMP, BNP, TSH #### [facility] [address] [address] [address] Shruti RoperProtein [Mass/Vol]6.5 g/dLNormal6.4-8.2[facility] Comment on above:Performed By: #### CMP, BNP, TSH #### [facility] [address] [place] [address] Dr. Shruti RoperSodium [Moles/Vol]143 mmol/OPdjcly367-727Tlw [facility] Comment on above:Performed By: #### CMP, BNP, TSH #### [facility] [address] [place] [address] Dr. Shruti RoperUrea nitrogen [Mass/Vol]17.0 mg/dLNormal7.0-18.0The [facility] HospitalComment on above:Performed By: #### CMP, BNP, TSH #### [facility] [address] [place] [address] Dr. Shruti Bernal nitrogen/Creatinine [Mass ratio]15.0 mg/mgNormalThe Berger HospitalComment on above:Performed By: #### CMP, BNP, TSH #### [facility] [address] [place] [address] Dr. Shruti RoperTSHoluca 30-39-5179JOA7.294 uIU/mLNormal0.358-3.740The [facility] HospitalComment on above:Performed By: #### CMP, BNP, TSH #### [facility] [address] [place] [address] Dr. Shruti RoperXR CHEST 2 Von 32-63-4100LN CHEST 2 VEXAM: CHEST 2 VIEWS HISTORY: [...] Electronically authenticated by: SCOTT JOHNSON Date: 2022-03-28 13:14[facility] HospitalPROF CHEM 8 (BAS METB)on 18-06-1178Xcber gap [Moles/Vol]10.0 mmol/LNormalThe Berger HospitalComment on above:Performed By: #### BMP ####[facility] [address] [place], [place] [address]Dr. Yilan ChangCalcium [Mass/Vol]8.8 mg/dLNormal8.5-10.1The Berger HospitalComment on above:Performed By: #### BMP ####[facility] [address] [place], [place] [address]Dr.Yilan ChangChloride [Moles/Vol]105 mmol/LNormal 98-107The [facility] HospitalComment on above:Performed By: #### BMP ####[facility] [address] [place], [place] [address]Dr.Yilan ChangCO2 [Moles/Vol]30.6 mmol/UBhuqwc93.0-32.0The Berger HospitalComment on above: Performed By: #### BMP ####[facility] [address] [place], [place] [address]Dr.Yilan ChangCreatinine [Mass/Vol]1.24 mg/dLNormal 0.70-1.30The [facility] HospitalComment on above:Performed By: #### BMP ####[facility] [address] [place], [place] [address]Dr. Yilan ChangEGFR-AF SWISS>60Normal>=60[facility] CenterCommclaren [facility] on above: Performed By: #### BMP ####[facility] Wy[address] [place], [place] [address]Dr.Yilan ChangEGFR-NON AF TKXYXMYH05 mL/min/1.73m2 Critically low>=60The [facility] Centerment on above:Performed By: #### BMP ####[facility] [address] [place], [place] [address]Dk. Yilan ChangGlucose [Mass/Vol]122 mg/dLCritically gqqd72-781Dnm [facility] Comment on above:Performed By: #### BMP ####[facility] [address] [place], [place] [address]Ef.Yilan ChangPotassium [Moles/Vol]4.6 mmol/LNormal3.5-5.1The [facility] HospitalComment on above:Performed By: #### BMP ####[facility] [address] [place], [place] [address]Oq. Yilan ChangSodium [Moles/Vol]141 mmol/HTdeeyd325-098Fhk [facility] HospitalComment on above:Performed By: #### BMP ####[facility] [address] [place], [place] [address]Ae.Yilan ChangUrea nitrogen [Mass/Vol]18.0 mg/dLNormal 7.0-18.0The [facility] HospitalComment on above:Performed By: #### BMP ####[facility] [address] [place], [place] [address]Fb. Yilan ChangUrea nitrogen/Creatinine [Mass ratio]14.5 mg/mgNormalThe Berger HospitalComment on above:Performed By: #### BMP ####[facility] [address] [place], [place] [address]Iq.Shruti RoperUS CAROTID ART BILon [id number] CAROTID ART BILEXAMINATION: US CAROTID ART LUNA [...] Electronically authenticated by: NICOLE THOMAS Date: 2022-01-22 06:43[facility] HospitalXR LSPINE 2_3 VIEWSon [id number] LSPINE 2_3 VIEWSEXAMINATION: XR LSPINE 2_3 VIEWS HISTORY: Low back pain COMPARISON: No relevant comparison available. FINDINGS: BONES: 2 mm retrolisthesis of L2 on L3 and L3 on L4. Mild degenerative spondylosis. Vnsw-pz-odgctqls facet osteoarthropathy. DISC SPACES: Normal. No significant disc height narrowing, subluxation, or endplate abnormality. PARASPINOUS: Negative. No paraspinous abnormality is seen. OTHER: Vascular calcification IMPRESSION: Ytex-zq-flljurta degenerative changes Electronically authenticated by: NICOLE THOMAS Date: 2021-12-02 20:57[facility] HospitalBASIC METABOLIC PANELon 18-68-6536Xdfborc mass conc9.0 mg/dL Normal8.6-10.3The [facility] OhioComment on above:Order Comment: No: Do not add to previous drawPerformed By: #### 95379, 77054, 25686 ####[facility] [place] [address], [place] Chloride molar daer073 mmol/EVhfinm60-068Gzz [facility] [place] Comment on above:Order Comment: No: Do not add to previous drawPerformed By: #### 67493, 73575, 55098 ####[facility] [place] [address], USACO2 molar conc25 mmol/SQewync10-54Bmn [facility] OhioComment on above:Order Comment: No: Do not add to previous drawPerformed By: #### 25594, 10673, 06134 ####[facility] [place] [address], USACreatinine mass conc1.02 mg/dL Normal0.70-1.30The [facility] OhioComment on above:Order Comment: No: Do not add to previous drawPerformed By: #### 78282, 39426, 06546 ####[facility] [place] [address], [place] GFR/1.73 sq M predicted among blacks MDRD vol rate/area (S/P/Bld) mL/min/{1.73_m2}Normal>60The [facility] OhioComment on above:Order Comment: No: Do not add to previous drawResult Comment: Calculation may not be valid for patients over 70 yearsPerformed By: #### 92571, 25909, 27715 ####[facility] [place] [address], USAGFR/1.73 sq M predicted among non-blacks MDRD vol rate/area (S/P/Bld) mL/min/{1.73_m2}Normal>60The [facility] OhioComment on above:Order Comment: No: Do not add to previous drawResult Comment: Calculation may not be valid for patients over 70 yearsPerformed By: #### 31656, 38042, 64045 ####[facility] [place] [address], USAGlucose mass htzz795 mg/lKTcrs61-417Yrw [facility] OhioComment on above:Order Comment: No: Do not add to previous drawPerformed By: #### 53911, 26202, 17719 ####[facility] [place] [address], USAPotassium molar conc3.9 mmol/LNormal3.5-5.1 The [facility] OhioComment on above:Order Comment: No: Do not add to previous drawPerformed By: #### 91444, 68092, 08775 ####[facility] [place] [address], USASodium molar conc 137 mmol/QZggoro197-827Aqz [facility] OhioComment on above: Order Comment: No: Do not add to previous drawPerformed By: #### 80466, 86402, 05842 ####[facility] [facility] [place] [address], [facility] AT LAS VEGASUrea nitrogen mass conc14 mg/dLNormal7-25The [facility] OhioComment on above:Order Comment: No: Do not add to previous draw Performed By: #### 13846, 87428, 78236 ####[facility] [facility] [place] [address], [facility] AT L[facility] VEGASCBC W/DIFFon [id number] BASOPHILS0.0 10*3/uLNormal0.0-0.2The [facility] OhioComment on above:Order Comment: No: Do not add to previous drawPerformed By: #### 48246, 21522, 19205 ####[facility] [facility] [place] [address], [facility] INSTITUTE AT L[facility] VEGASABS IMM GRANS0.0 10*3/uLNormal0.0-0.2The [facility] OhioComment on above:Order Comment: No: Do not add to previous draw Performed By: #### 70229, 14074, 17154 ####[address] [place] [address], [facility] INSTITUTE AT LAS VEGASABS NEUTROPHILS4.4 10*3/uLNormal 1.6-7.6The [facility] OhioComment on above:Order Comment: No: Do not add to previous drawPerformed By: #### 78945, 00413, 35947 ####[facility] [facility] [place] [address], [facility] Basophils Auto #/vol (Bld)0.4 %Normal0.0-1.0The [facility] OhioComment on above:Order Comment: No: Do not add to previous drawPerformed By: #### 34618, 50478, 80833 ####[facility] [place] [address], USAEosinophils Auto #/vol (Bld)0.2 10*3/uLNormal 0.0-0.5The [facility] OhioComment on above:Order Comment: No: Do not add to previous drawPerformed By: #### 44449, 56004, 92914 ####[facility] [place] [address], [place] Eosinophils/100 WBC Auto (Bld)1.9 %Normal0.0-6.0The [facility] OhioComment on above:Order Comment: No: Do not add to previous drawPerformed By: #### 44301, 12056, 14854 ####[facility] [facility] [place] [address], USAErythrocyte distribution width Auto Ratio (RBC)12.9 %Cjxvmc01.5-15.0The [facility] OhioComment on above:Order Comment: No: Do not add to previous drawPerformed By: #### 86372, 36746, 45872 ####[facility] [facility] [place] [address], [facility] AT L[facility] VEGASHematocrit Auto Volume Fraction (Bld)39.2 %Usmobw85.0-50.0The [facility] OhioComment on above:Order Comment: No: Do not add to previous drawPerformed By: #### 58413, 49603, 35749 ####[facility] [facility] [place] [address], [facility] AT L[facility] VEGASHemoglobin mass conc (Bld)13.2 g/rDOhpqzn88.0-17.0The [facility] OhioComment on above:Order Comment: No: Do not add to previous drawPerformed By: #### 27049, 21559, 41909 ####[facility] [place] [address].[place] [address], [facility] AT L[facility] VEGASIMMATURE GRANS0.1 %Normal0.0-1.0The [facility] OhioComment on above:Order Comment: No: Do not add to previous drawPerformed By: #### 05060, 72939, 62708 ####[place] [address], [facility]STITUTE AT LAS VEGASLymphocytes Auto #/vol (Bld)4.1 10*3/uLHigh 1.2-4.0The [facility] OhioComment on above:Order Comment: No: Do not add to previous drawPerformed By: #### 91773, 35923, 49474 ####[facility] [place] [address].[place] [address], [facility] Lymphocytes/100 WBC Auto (Bld)43.0 %Aauznv34.0-45.0The [facility] OhioComment on above:Order Comment: No: Do not add to previous draw Performed By: #### 57173, 54863, 41718 ####[address] [place] [address], [facility] Auto Entitic mass (RBC)27.6 pg Ozfgxm75.0-33.0The [facility] OhioComment on above:Order Comment: No: Do not add to previous drawPerformed By: #### 20058, 66692, 06369 ####[place] [address], [facility] MCHC Auto mass conc (RBC)33.7 g/sOBxggxe73.0-35.0The [facility] OhioComment on above:Order Comment: No: Do not add to previous draw Performed By: #### 05884, 29527, 75443 ####[address] [place] [address], [facility] Auto Entitic volume (RBC)82.0 lJKobdxd99.0-98.0The [facility] OhioComment on above:Order Comment: No: Do not add to previous drawPerformed By: #### 80197, 83409, 87665 ####[facility] [place] [address], [place] Monocytes Auto #/vol (Bld)0.8 10*3/uLNormal0.1-1.0The [facility] OhioComment on above:Order Comment: No: Do not add to previous draw Performed By: #### 27223, 94636, 09069 ####[facility] [place] [address], USAMONOS8.3 %Normal5.0-12.0The [facility] OhioComment on above:Order Comment: No: Do not add to previous drawPerformed By: #### 34755, 16591, 39184 ####[facility] [facility] [place] [address], USANeutrophils/100 WBC Auto (Bld)46.3 %Behquf00.0-72.0The [facility] OhioComment on above:Order Comment: No: Do not add to previous drawPerformed By: #### 18134, 70024, 70770 ####[facility] [facility] [place] [address], USANucleated RBC/100 WBC Ratio (Bld)0 %Normal0-0The [facility] OhioComment on above:Order Comment: No: Do not add to previous drawPerformed By: #### 42763, 12935, 62343 ####[facility] [facility] [place] [address], USAPLAT ISR559 10*3/jYOntqkk387-285 The [facility] OhioComment on above:Order Comment: No: Do not add to previous drawPerformed By: #### 08231, 23101, 56052 ####[facility] [facility] [place] [address], USARBC Auto #/vol (Bld)4.78 10*6/uLNormal4.20-5.70The [facility] OhioComment on above:Order Comment: No: Do not add to previous drawPerformed By: #### 31870, 49503, 12753 ####[facility] [place] [address], USAWBC Auto #/vol (Bld)9.54 10*3/uLNormal4.00-10.60The [facility] OhioComment on above:Order Comment: No: Do not add to previous drawPerformed By: #### 97552, 55072, 14745 ####[facility] [place] [address], USABASIC METABOLIC PANELon 06-05-2018 Calcium mass conc8.7 mg/dLNormal8.6-10.3The [facility] [place] Comment on above:Order Comment: No: Do not add to previous drawPerformed By: #### 78502, 60980, 84644 ####[facility] [place] [address], USAChloride molar lsqm866 mmol/QPegsqs25-899Qrx [facility] OhioComment on above:Order Comment: No: Do not add to previous drawPerformed By: #### 19328, 36958, 32289 ####[facility] [place] [address], [place]ACO2 molar conc30 mmol/L Tlzukz16-14Mtb [facility] OhioComment on above:Order Comment: No: Do not add to previous drawPerformed By: #### 75705, 28060, 22345 ####[facility] [place] [address], [place] Creatinine mass conc0.99 mg/dLNormal0.70-1.30The [facility] OhioComment on above:Order Comment: No: Do not add to previous drawPerformed By: #### 23106, 47844, 60497 ####[facility] [place] [address], USAGFR/1.73 sq M predicted among blacks MDRD vol rate/area (S/P/Bld)mL/min/{1.73_m2}Normal>60The [facility] OhioComment on above:Order Comment: No: Do not add to previous drawResult Comment: Calculation may not be valid for patients over 70 yearsPerformed By: #### 91754, 30231, 85861 ####[facility] [place] [address], USAGFR/1.73 sq M predicted among non-blacks MDRD vol rate/area (S/P/Bld)mL/min/{1.73_m2}Normal>60The [facility] OhioComment on above:Order Comment: No: Do not add to previous drawResult Comment: Calculation may not be valid for patients over 70 yearsPerformed By: #### 13076, 79902, 77342 ####[facility] [place] [address], [facility] AT L[facility] VEGASGlucose mass iffr329 mg/oGTnky15-732Rtp [facility] OhioComment on above:Order Comment: No: Do not add to previous drawPerformed By: #### 54741, 90611, 40862 ####[facility] [place] [address], USAPotassium molar conc3.9 mmol/L Normal3.5-5.1The [facility] OhioComment on above:Order Comment: No: Do not add to previous drawPerformed By: #### 92026, 15783, 27408 ####[facility] [place] [address], [place] Sodium molar bpcw398 mmol/OEzguzg183-789Nat [facility] [place] Comment on above:Order Comment: No: Do not add to previous drawPerformed By: #### 49706, 47556, 56464 ####[facility] [place] [address], USAUrea nitrogen mass conc14 mg/dLNormal7-25The [facility] OhioComment on above:Order Comment: No: Do not add to previous drawPerformed By: #### 05059, 70511, 65799 ####[facility] [place] [address].[place] [address], [facility] AT LAS VEGASCBC COMPLETE BLOOD COUNTon 85-69-5007Fkbqkaansew distribution width Auto Ratio (RBC)13.0 %Arlgpl40.5-15.0 The [facility] OhioComment on above:Order Comment: No: Do not add to previous drawPerformed By: #### 03127, 21315, 81381 ####[facility] [place] [address], [facility] AT L[facility] VEGASHematocrit Auto Volume Fraction (Bld)40.4 %Couvgy37.0-50.0The [facility] OhioComment on above:Order Comment: No: Do not add to previous drawPerformed By: #### 34940, 97718, 59273 ####[address] [place] [address], [facility] AT L[facility] VEGASHemoglobin mass conc (Bld)13.3 g/dLNormal 13.0-17.0The [facility] OhioComment on above:Order Comment: No: Do not add to previous drawPerformed By: #### 36364, 52231, 88670 ####[place] [address], [facility] MCH Auto Entitic mass (RBC)27.3 ssVesxbb87.0-33.0The [facility] OhioComment on above:Order Comment: No: Do not add to previous draw Performed By: #### 13462, 13271, 76066 ####[place] [address], [facility] L[facility] VE[facility]ASMCHC Auto mass conc (RBC)32.9 g/dL Cdjscu42.0-35.0The [facility] OhioComment on above:Order Comment: No: Do not add to previous drawPerformed By: #### 11538, 94063, 59713 ####[facility] [place] [address], [facility] MCV Auto Entitic volume (RBC)83.0 uUFhbmnm86.0-98.0The [facility] OhioComment on above:Order Comment: No: Do not add to previous draw Performed By: #### 71119, 87619, 75369 ####[facility] [place] [address], [facility]ASNucleated RBC/100 WBC Ratio (Bld)0 %Normal0-0The [facility] OhioComment on above:Order Comment: No: Do not add to previous drawPerformed By: #### 37699, 79370, 39594 ####[facility] [place] [address], [facility] PLAT USF774 10*3/pHKezrrf775-633Asx [facility] OhioComment on above:Order Comment: No: Do not add to previous drawPerformed By: #### 99195, 47629, 26918 ####[facility] [facility] [place] [address], [facility] L[facility] VEGASRBC Auto #/vol (Bld)4.87 10*6/uLNormal4.20-5.70The [facility] OhioComment on above:Order Comment: No: Do not add to previous drawPerformed By: #### 92938, 58683, 79587 ####[facility] [place] [address], [facility] L[facility] VE[facility]ASWBC Auto #/vol (Bld)8.97 10*3/uL Normal4.00-10.60The [facility] OhioComment on above:Order Comment: No: Do not add to previous drawPerformed By: #### 28950, 70468, 71504 ####[place] [address] [place] [address], [facility] Cardiovascular Lab Reporton [id number] Lab ReportUnRegency Hospital Company Patient [facility] Y[facility]aira MR #: [id number] of Physician: Gunnar Wallace M.D.Division of Service Date: 06/04/2018Cardiology Birthdate: 1940dult Cardiovascular Room #: 3CD [id number]. [facility]er[address] [place], [place] [address]Laqvs Fax Cardiovascular Laboratory ReportMr. Barroso is a patient that I see in [place]. He has had problems withatrial fibrillation. I [...] 06/04/2018/12:56 P/Gunnar Wallace M.D.Date Trans: 06/05/2018 03:36 A/Maxx_JN:[id number]: Julio Patton D.O. [address] [facility], [place] [address]BpjqziYiy [facility] OhioMAGNESIUM BLOODon [id number] mass conc2.1 mg/dLNormal1.9-2.7The [facility] OhioComment on above:Order Comment: No: Do not add to previous drawPerformed By: #### 64648, 97695, 40018 ####[facility] [place] [address], USAPHOSPHORUS BLOODon 06-05-2018 Phosphate mass conc3.0 mg/dLNormal2.5-5.0The [facility] [place] Comment on above:Order Comment: No: Do not add to previous drawPerformed By: #### 96773, 18677, 07345 ####[facility] [place] [address], USAHistory and Physicalon [id number] and Physical MR#: [id number] Name: Yajaira Barroso Admitted: 06/04/2018 Date [...] count, WBC 9.1, hemoglobin 14.3, platelet 252, juacfyiiot97.1. EKG sinus rhythm with first-degree AV block.ASSESSMENT:1. [...] 06/04/2018/01:34 P/Xin Elliott M.D.Date Trans: 06/04/2018 02:27 P/mmoDN_JN:[id number] [facility] COMPLETE BLOOD COUNTon 06-27-2018 Erythrocyte distribution width Auto Ratio (RBC)13.6 %Vnfqvp79.5-15.0The [facility] OhioComment on above:Order Comment: No: Do not add to previous drawPerformed By: #### 82016, 32953, 72146 ####[facility] [facility] [place] [address], [facility] VE[facility]ASHematocrit Auto Volume Fraction (Bld)43.2 %Ofahtr46.0-50.0The [facility] OhioComment on above:Order Comment: No: Do not add to previous drawPerformed By: #### 35331, 86991, 41800 ####[facility] [facility] [place] [address], [facility] VE[facility]ASHemoglobin mass conc (Bld)14.3 g/dLNormal 13.0-17.0The [facility] OhioComment on above:Order Comment: No: Do not add to previous drawPerformed By: #### 99308, 60156, 40279 ####[facility] [facility] [place] [address], [facility] MCH Auto Entitic mass (RBC)27.9 kcAieach20.0-33.0The [facility] OhioComment on above:Order Comment: No: Do not add to previous draw Performed By: #### 49859, 79127, 91089 ####[facility] [facility] [place] [address], [facility]ASMCHC Auto mass conc (RBC)33.1 g/dL Lrjroe38.0-35.0The [facility] OhioComment on above:Order Comment: No: Do not add to previous drawPerformed By: #### 40950, 12513, 84355 ####[facility] [place] [address], [facility] MCV Auto Entitic volume (RBC)84.2 lDXjzgqh88.0-98.0The [facility] OhioComment on above:Order Comment: No: Do not add to previous draw Performed By: #### 11334, 69931, 71686 ####[facility] [place] [address], [facility] VE[facility]ASNucleated RBC/100 WBC Ratio (Bld)0 %Normal0-0The [facility] OhioComment on above:Order Comment: No: Do not add to previous drawPerformed By: #### 01204, 54741, 72030 ####[facility] [place] [address], [facility] PLAT ADG464 10*3/kQWgkbct921-315Bqv [facility] [place]Comment on above:Order Comment: No: Do not add to previous drawPerformed By: #### 11784, 62967, 85491 ####[address] [place] [address], [facility] INSTITUTE AT L[facility] VEGASRBC Auto #/vol (Bld)5.13 10*6/uLNormal4.20-5.70The [facility] OhioComment on above:Order Comment: No: Do not add to previous drawPerformed By: #### 28875, 91213, 12445 ####[facility] [place] [address].[place] [address], [facility] AT L[facility] VE[facility]ASWBC Auto #/vol (Bld)10.61 10*3/uL High4.00-10.60The [facility] [place]Comment on above:Order Comment: No: Do not add to previous drawPerformed By: #### 16249, 74347, 63575 ####[facility] [facility] [place] [address], [facility] COMP METABOLIC PANELon 47-09-0171Pdqvtat mass conc3.2 g/dLLow3.5-5.7The [facility] OhioComment on above:Order Comment: No: Do not add to previous drawPerformed By: #### 98204, 32086, 87105 ####[address] [place] [address], USAALKALINE EWSEUR75 IU/WNhbqbo87-775Qbj [facility] OhioComment on above:Order Comment: No: Do not add to previous drawPerformed By: #### 66256, 53509, 57249 ####[facility] [place] [address], [place] ALT enzyme act/vol15 U/LNormal7-52The [facility] OhioComment on above:Order Comment: No: Do not add to previous drawPerformed By: #### 53153, 76020, 11136 ####[facility] [place] [address], USAAST enzyme act/vol15 U/LXhqaul27-72Jtm [facility] OhioComment on above:Order Comment: No: Do not add to previous drawPerformed By: #### 57731, 12583, 63586 ####[facility] [place] [address], USABilirubin mass conc0.8 mg/dLNormal0.3-1.0The [facility] OhioComment on above:Order Comment: No: Do not add to previous drawPerformed By: #### 90067, 76591, 81591 ####[facility] [place] [address], USACalcium mass conc 8.6 mg/dLNormal8.6-10.3The [facility] OhioComment on above: Order Comment: No: Do not add to previous drawPerformed By: #### 42894, 77708, 35304 ####[facility] [place] [address], USAChloride molar nkel593 mmol/DDqoqoz81-153Agv [facility] OhioComment on above:Order Comment: No: Do not add to previous draw Performed By: #### 25613, 43168, 71366 ####[facility] [place] [address], USACO2 molar conc25 mmol/KUkgzfq04-34 The [facility] OhioComment on above:Order Comment: No: Do not add to previous drawPerformed By: #### 21406, 99912, 45099 ####[facility] [place] [address], USACreatinine mass conc1.32 mg/dLHigh0.70-1.30The [facility] OhioComment on above:Order Comment: No: Do not add to previous drawPerformed By: #### 18002, 68132, 30431 ####[facility] [place] [address], USAGFR/1.73 sq M predicted among blacks MDRD vol rate/area (S/P/Bld) mL/min/{1.73_m2}Normal>60The [facility] OhioComment on above:Order Comment: No: Do not add to previous drawResult Comment: Calculation may not be valid for patients over 70 yearsPerformed By: #### 74894, 40121, 08677 ####[facility] [place] [address], USAGFR/1.73 sq M predicted among non-blacks MDRD vol rate/area (S/P/Bld) 53 ml/min/1.73sq mAbnormal>60The [facility] OhioComment on above:Order Comment: No: Do not add to previous drawResult Comment: Calculation may not be valid for patients over 70 yearsPerformed By: #### 40179, 54476, 15860 ####[facility] [place] [address], USAGlucose mass conc80 mg/kEJnfhzi33-992Jlg [facility] OhioComment on above:Order Comment: No: Do not add to previous drawPerformed By: #### 32353, 56922, 38430 ####[facility] [place] [address], USAPotassium molar conc4.4 mmol/LNormal3.5-5.1 The [facility] OhioComment on above:Order Comment: No: Do not add to previous drawPerformed By: #### 16863, 96395, 08328 ####[facility] [place] [address], [facility]ASProtein mass conc 5.4 g/dLLow6.0-8.3The [facility] OhioComment on above:Order Comment: No: Do not add to previous drawPerformed By: #### 55008, 77152, 68194 ####[facility] [place] [address], [facility] Sodium molar xfbm435 mmol/HSnazlx948-567Cnf [facility] [place] Comment on above:Order Comment: No: Do not add to previous drawPerformed By: #### 31101, 73679, 71444 ####[facility] [place] [address], [facility] AT L[facility] VE[facility]ASUrea nitrogen mass conc23 mg/dLNormal7-25The [facility] OhioComment on above:Order Comment: No: Do not add to previous drawPerformed By: #### 68167, 76084, 58439 ####[facility] [place] [address], [facility]ASMAGNESIUM BLOODon 70-41-3956Occpjtbym mass conc2.1 mg/dLNormal1.9-2.7The [facility] OhioComment on above:Order Comment: No: Do not add to previous draw Performed By: #### 01455, 52268, 81340 ####[facility] [place] [address], USAPHOSPHORUS BLOODon 12-23-2017 Phosphate mass conc4.5 mg/dLNormal2.5-5.0The [facility] [place] Comment on above:Order Comment: No: Do not add to previous drawPerformed By: #### 89700, 07095, 14071 ####[facility] [facility] [place] [address], [facility] AT L[facility] VEGASUFH HEPARIN ASSAYon 47-71-5297NCIUQQLTIXQIFX HEPARIN 0.59 IU/mLNormal0.30-0.70The [facility] OhioComment on above:Result Comment: Rivaroxaban and Apixaban will interfere with the anti Xa assay used tomonitor UFH and LMWH.Performed By: #### 73282, 57043, 55305 ####[place] [address] [facility] [place] [address], [facility] APTTon 54-08-4238qVLP Coag time (Bld)34.1 oLecrqr87.0-35.0The [facility] OhioComment on above:Result Comment: ALL RESULTS MUST BE INTERPRETED WITH RESPECT TO BLOOD DRAWING ARTIFACTOR DILUTION ERROR OF ANTICOAGULANT AT THE TIME OF SAMPLING.THE APTT SHOULD NOT BE USED TO MONITOR UNFRACTIONATED HEPARIN THERAPY, THIS LABORATORY NO LONGER HAS AN ESTABLISHED THERAPEUTIC RANGE BASEDON THE APTT. IT IS RECOMMENDED THAT THE UFH - HEPARIN ASSAY (ANTI-XAACTIVITY) BE USED FOR THIS PURPOSE.Performed By: #### 93341, 36231 ####[address] [place] [address], [facility] BASIC METABOLIC PANELon 94-10-9489Uagoats mass conc9.2 mg/dLNormal8.6-10.3The [facility] OhioComment on above:Order Comment: No: Do not add to previous drawPerformed By: #### 21141, 87569, 16177 ####[place] [address] [facility] [place] [address], USAChloride molar conc 98 mmol/IDrpmol89-898Ais [facility] OhioComment on above: Order Comment: No: Do not add to previous drawPerformed By: #### 49235, 24094, 23619 ####[place] [address] [facility] [place] [address], USACO2 molar conc24 mmol/SWksgrb72-48Mwu [facility] OhioComment on above:Order Comment: No: Do not add to previous drawPerformed By: #### 16668, 55355, 07199 ####[facility] [place] [address], USACreatinine mass conc0.96 mg/dLNormal0.70-1.30 The [facility] OhioComment on above:Order Comment: No: Do not add to previous drawPerformed By: #### 16842, 32885, 74627 ####[facility] [place] [address], USAGFR/1.73 sq M predicted among blacks MDRD vol rate/area (S/P/Bld)mL/min/{1.73_m2}Normal>60The [facility] OhioComment on above:Order Comment: No: Do not add to previous drawResult Comment: Calculation may not be valid for patients over 70 yearsPerformed By: #### 31227, 91851, 12916 ####[facility] [place] [address], USAGFR/1.73 sq M predicted among non-blacks MDRD vol rate/area (S/P/Bld)mL/min/{1.73_m2}Normal>60The [facility] OhioComment on above:Order Comment: No: Do not add to previous drawResult Comment: Calculation may not be valid for patients over 70 yearsPerformed By: #### 27516, 46294, 12904 ####[facility] [place] [address], USAGlucose mass conc99 mg/dL Vkmwnx91-412Oxd [facility] OhioComment on above:Order Comment: No: Do not add to previous drawPerformed By: #### 44567, 12583, 86753 ####[facility] [place] [address], [place] Potassium molar conc3.4 mmol/LLow3.5-5.1The [facility] [place] Comment on above:Order Comment: No: Do not add to previous drawPerformed By: #### 98378, 46180, 68131 ####[facility] [facility] [place] [address], [facility]ASSodium molar veqd394 mmol/YZst457-403Xkw [facility] OhioComment on above:Order Comment: No: Do not add to previous drawPerformed By: #### 15438, 49389, 05541 ####[facility] [place] [address], USAUrea nitrogen mass conc18 mg/dL Normal7-25The [facility] OhioComment on above:Order Comment: No: Do not add to previous drawPerformed By: #### 38559, 08132, 30513 ####[facility] [facility] [place] [address], [place] CBC W/DIFFon 74-70-4920FQZ BASOPHILS0.1 10*3/uLNormal0.0-0.2The [facility] OhioComment on above:Performed By: #### 27173 ####[facility] [facility] [place] [address], [facility] AT L[facility] VEGASABS IMM GRANS0.0 10*3/uLNormal0.0-0.2The [facility] OhioComment on above: Performed By: #### 61836 ####[facility] [facility] [place] [address], [facility]STITUTE AT L[facility] VE[facility]ASABS NEUTROPHILS5.7 10*3/uLNormal1.6-7.6The [facility] OhioComment on above:Performed By: #### 19228 ####[facility] [facility] [place] [address], [facility] L[facility] VE[facility]ASBasophils Auto #/vol (Bld)0.4 %Normal0.0-1.0The [facility] OhioComment on above:Performed By: #### 92713 ####[facility] [place] [address].[place] [address], [facility] VE[facility]ASEosinophils Auto #/vol (Bld)0.2 10*3/uLNormal 0.0-0.5The [facility] OhioComment on above:Performed By: #### 92636 ####[facility] [facility] [place] [address], USAEosinophils/100 WBC Auto (Bld)1.3 %Normal0.0-6.0The [facility] OhioComment on above:Performed By: #### 05027 ####[facility] [place] [address].[place] [address], [facility] L[facility] VE[facility]ASErythrocyte distribution width Auto Ratio (RBC)13.3 %Yadydi16.5-15.0The [facility] OhioComment on above:Performed By: #### 84825 ####[address] [place] [address], [facility] AT L[facility] VE[facility]ASHematocrit Auto Volume Fraction (Bld)46.3 %Osxuiy42.0-50.0The [facility] [place] Comment on above:Performed By: #### 44165 ####[address] [place] [address], [facility] VE[facility]ASHemoglobin mass conc (Bld)15.6 g/wIMyvfgv65.0-17.0The [facility] OhioComment on above: Performed By: #### 56682 ####[address] [place] [address], USAIMMATURE GRANS0.3 %Normal0.0-1.0The [facility] OhioComment on above:Performed By: #### 60476 ####[address] [place] [address], USALymphocytes Auto #/vol (Bld)4.6 10*3/uLHigh1.2-4.0The [facility] OhioComment on above:Performed By: #### 73734 ####[address] [place] [address], USALymphocytes/100 WBC Auto (Bld)39.8 %Normal 20.0-45.0The [facility] OhioComment on above:Performed By: #### 00141 ####[address] [place] [address], [facility] Auto Entitic mass (RBC)27.8 zgHtvcvx09.0-33.0The [facility] OhioComment on above:Performed By: #### 83727 ####[address] [place] [address], [facility]ALIHINAHC Auto mass conc (RBC)33.7 g/uNJmpdwx99.0-35.0The [facility] OhioComment on above:Performed By: #### 32943 ####[address] [place] [address], [facility] TALIHINAV Auto Entitic volume (RBC)82.5 fLNormal 82.0-98.0The [facility] OhioComment on above:Performed By: #### 12921 ####[address] [place] [address], [facility] VE[facility]ASMonocytes Auto #/vol (Bld)1.0 10*3/uLNormal0.1-1.0The [facility] OhioComment on above:Performed By: #### 51821 ####[address] [place] [address], [facility] VE[facility]ASMONOS8.7 %Normal 5.0-12.0The [facility] OhioComment on above:Performed By: #### 30102 ####[address] [place] [address], [facility] L[facility] VE[facility]ASNeutrophils/100 WBC Auto (Bld)49.5 %Acbmzv49.0-72.0The [facility] OhioComment on above:Performed By: #### 64732 ####[address] [place] [address], USANucleated RBC/100 WBC Ratio (Bld)0 %Normal0-0The [facility] OhioComment on above:Performed By: #### 32865 ####[facility] [facility] [place] [address], USAPLAT CNT588 10*3/nQJnpdni335-571Uji [facility] OhioComment on above:Performed By: #### 25900 ####[facility] [facility] [place] [address], [facility] RBC Auto #/vol (Bld)5.61 10*6/uLNormal4.20-5.70The [facility] OhioComment on above:Performed By: #### 58270 ####[address] [place] [address], [facility] AT L[facility] VEGASWBC Auto #/vol (Bld)11.61 10*3/uL High4.00-10.60The [facility] OhioComment on above:Performed By: #### 76283 ####[address] [place] [address], [facility] L[facility] VEGASCardiovascular Lab Reporton [id number] Lab Report [facility] #: [id number] Physician: Scotty Terry,Department of M.D.Medicine Service Date: 12/22/2017Division of Birthdate: 1Cardiology Room #: 3CD [id number] CardiovascularServicesLuis [place] [address]Phone Fax Cardiovascular Laboratory ReportFINAL IMPRESSIONS:1. Patent stent [...] angiography, bilateral selective coronaryangiography, placement of a 6-Swedish MynxGrip closure device.METHODS: After risks, benefits, and alternatives were explained, writteninformed consent was obtained. The patient was prepped and draped in usualsterile fashion over both groins. Using 1% lidocaine solution, localinfiltration anesthesia was achieved. Using modified Seldinger technique,access to the right common femoral artery was obtained.A 6-Swedish 11 cmsheath was inserted. Baseline femoral angiography was performed.Bilateral selectivecoronary angiography was performed using JL4 and MX2yxwwcjdxe. After reviewing the images, it was elected to conclude theprocedure.A 6-Swedish MynxGrip closure device was deployed per protocol achievingoptimal hemostasis. Overall, the patient tolerated the procedure well.There were no overt complicat ions. [facility] in stable condition.FINDINGS: Hemodynamics:AO: 136/73 (98).LEFT VENTRICULOGRAPHY: [...] 12/22/2017/01:46 P/Scotty Terry M.D.Date Trans: 12/22/2017 04:28 P/mmoDN_JN:[id number]: Julio Patton D.O. [address] [facility] [address] Doris Pérez D.O. [address] [facility] [address]RckazgLgt [facility] OhioHEMOGLOBIN A1Con 48-25-0664Zmpmine mass nmby362 mg/dICdud01-838Hyg [facility] OhioComment on above:Order Comment: Yes: Add to Previous draw if ablePerformed By: #### 43475 ####[facility] [place] [address], USAHemoglobin A1c/Hemoglobin.total mass fraction (Bld)7.2 %High4.0-6.0 The [facility] OhioComment on above:Order Comment: Yes: Add to Previous draw if ablePerformed By: #### 21748 ####[facility] [place] [address], USAMAGNESIUM BLOODon 37-40-2684Cplyrnwpd mass conc2.4 mg/dLNormal1.9-2.7[facility] OhioComment on above:Order Comment: Yes: Add to Previous draw if able Performed By: #### [id number], [id number] ####[facility] [place] [address], USAPROTHROMBIN TIMEon 53-35-4157QGR Coag RelTime (PPP)1.07 {INR}Normal0.91-1.16[facility] OhioComment on above:Result Comment: ACCCP RECOMMENDED INR FOR WARFARIN THERAPY CONDITION INRPROPHYLAXIS OF VENOUS THROMBOSIS 2-3(HIGH-RISK SURGERY)TREATMENT OF VENOUS THROMBOSIS 2-3TREATMENT OF PULMONARY EMBOLISM 2-3PREVENTION OF SYSTEMIC EMBOLISM: 2-3 ACUTE MYOCARDIAL INFARCTION TISSUE HEART VALVES VALVULAR HEART DISEASE ATRIAL FIBRILLATION RECURRENT SYSTEMIC EMBOLISMMECHANICAL HEART VALVE 2.5-3.5 FROM: ORAL ANTICOAGULANTS. MECHANISM OF ACTION, CLINICALEFFECTIVENESS, AND OPTIMAL THERAPEU TIC RANGE. [id number];108:231S-246S.Performed By: #### [id number], 29509 ####[address] Prothrombin time (PT) Coag time (PPP)13.9 hJzzppl68.3-14.8[facility] OhioComment on above:Result Comment: ALL RESULTS MUST BE INTERPRETED WITH RESPECT TO BLOOD DRAWING ARTIFACTOR DILUTION ERROR OF ANTICOAGULANT AT THE TIME OF SAMPLING.Performed By: #### [id number], 11380 ####[place] [address] [address] TROPONIN-Ion 67-00-7425Sgrjzqwi I.cardiac mass conc0.01 ng/mLNormal0.00-0.04[facility] OhioComment on above:Order Comment: No: Do not add to previous drawResult Comment: REFERENCE RANGES: 0.00 - 0.04 ng/ml NORMAL 0.05 - 0.50 ng/ml INDETERMINATE > 0.50 ng/ml CONSISTENT WITH AN M.I.Performed By: #### 37631, 10391 ####[place] [address] [place] [address], [facility] L[facility] VEGASTroponin I.cardiac mass conc0.01 ng/mLNormal0.00-0.04 [facility] OhioComment on above:Order Comment: No: Do not add to previous drawResult Comment: REFERENCE RANGES: 0.00 - 0.04 ng/ml NORMAL 0.05 - 0.50 ng/ml INDETERMINATE > 0.50 ng/ml CONSISTENT WITH AN M.I. Performed By: #### 29647, 58038, 59259 ####[facility] [facility] [place] [address], USATSH WITH REFLEXon 12-22-2017 Thyrotropin Qn2.93 MICRO-IU/MLNormal0.34-5.60[facility] OhioComment on above:Performed By: #### 38976, 80393, 61159 ####[facility] [facility] [place] [address], USAUFH HEPARIN ASSAYon 22-07-0159WXMVXFQCAZDYDS HEPARIN0.49 IU/mLNormal0.30-0.70[facility] OhioComment on above:Result Comment: Rivaroxaban and Apixaban will interfere with the anti Xa assay used tomonitor UFH and LMWH.Performed By: #### 62280, 79600, 33362 ####[place] [address] [facility] [place] [address], [facility] L[facility] VEGASUNFRACTIONATED HEPARIN0.69 IU/mLNormal0.30-0.70[facility] OhioComment on above:Result Comment: Rivaroxaban and Apixaban will interfere with the anti Xa assay used tomonitor UFH and LMWH. Performed By: #### [id number] ####[place] [address] [facility] [place] [address], [facility] Vital Signs Date TimeVital SignValuePerforming TudbzkygkUinikpnc79-54-2289 13:28-0400Body .26 cmBenjamin Ball DO Work Phone: [facility]10-28-2025 13:28-0400 Body mass index (BMI) [Ratio]34.9 kg/r4Fwvrhbzu Ball DO Work Phone: [facility]10-28-2025 13:28-0400 Body nphzlfrkbao40.4 [degF]Julio Ball DO Work Phone: [facility]10-28-2025 13:28-0400 Body inatzn321.5 kgBenjamin Ball DO Work Phone: [facility]10-28-2025 13:28-0400 Diastolic blood tbxkhfro61 mm[Hg]Julio Ball DO Work Phone: [facility]10-28-2025 13:28-0400 Heart rate88 /minBenjamin Ball DO Work Phone: [phone]10-28-2025 13:28-0400 SaO2% (BldA) [Mass fraction]95 %Julio Ball DO Work Phone: [facility]10-28-2025 13:28-0400 Systolic blood vfaymioa361 mm[Hg]Julio Ball DO Work Phone: [facility]07-17-2025 14:32-0400 Body wajuwl004.4 cmAllison Petznick DO Work Phone: noSS[facility] CenterBnayvrlgwa53-90-9355 14:32-0400Body mass index (BMI) [Ratio]35.62 kg/j9Gvqumkr Petznick DO Work Phone: no[facility] CenterQacjodevcu17-84-9729 14:32-0400Body temperature 97.81 [degF]Korin Petznick DO Work Phone: noSS[facility] CenterFrgzcoipxw55-54-5290 14:32-0400Body dqncef176.05 kgAllison Petznick DO Work Phone: no[facility] CenterBpgipyohex69-75-7059 14:32-0400Diastolic blood hraaejet57 mm[Hg]Korin Petznick DO Work Phone: noSS[facility] CenterLskdndawvh07-07-0677 14:32-0400Heart rate76 /min Korin Petznick DO Work Phone: [facility] LouisWgtfzknebc09-50-2064 14:32-3426PbE3% (BldA) [Mass fraction]94 %Korin Mercedes DO Work Phone: [facility] LouisBvttidxnxz83-47-6686 14:32-0400Systolic blood nqpsectz956 mm[Hg]Korin Mercedes DO Work Phone: [facility] LouisCeucdrvzdt64-47-5854 09:07-0400Body .7 cmOliver Fitzgerald MD Work Phone: 1(615)[facility]05-29-2025 09:07-0400Body mass index (BMI) [Ratio]35.73 kg/n0LzbtazkOliver Fitzgerald MD Work Phone: 1(672)[facility]05-29-2025 09:07-0400Body zkiqratincp34.3 [degF]Oliver Fitzgerald MD Work Phone: 1(873)[facility]05-29-2025 09:07-0400Body bqlsel773.59 kgMolynnette Fitzgerald MD Work Phone: 1(113)[facility]05-29-2025 09:07-0400Diastolic blood dcujscfc29 mm[Hg]Oliver Fitzgerald MD Work Phone: 1(436)[facility]05-29-2025 09:07-0400Heart rate 76 /minMolynnette Fitzgerald MD Work Phone: 1(399)[facility]05-29-2025 09:07-6156QbQ9% (BldA) [Mass fraction]96 %Oliver Fitzgerald MD Work Phone: 1(184)[facility]05-29-2025 09:07-0400Systolic blood mzeeouyi922 mm[Hg]Oliver Fitzgerald MD Work Phone: 1(209)[facility]05-07-2025 08:33-0400Body ozbpxa323.26 cmMer[facility]05-07-2025 08:33-0400Body mass index (BMI) [Ratio]35.7 kg/s2UcdvilgwrMercy Health Urbana Hospital05-07-2025 08:33-0400Body ysffny324.76 kgMer[facility]05-07-2025 08:33-0400Diastolic blood bixrsakg96 mm[Hg][facility] 11-02-2024 08:33-0400Heart rate87 /[facility] 11-02-2024 08:33-0400Respiratory rate16 /[facility] 11-02-2024 08:33-0400Systolic blood anislhwp005 mm[Hg][facility]04-30-2025 09:11-0400Body yuenaa060.26 cmMer[facility]04-30-2025 09:11-0400Body mass index (BMI) [Ratio]35.7 kg/n2PdfvzpetoMercy Health [facility] Hospital04-30-2025 09:11-0400Body iqhrff655.82 kgMer[facility]04-30-2025 09:11-0400Diastolic blood imbmcrhf11 mm[Hg] [facility]04-30-2025 09:11-0400Heart rate85 /[facility]04-30-2025 09:11-0400Respiratory rate12 /[facility]04-30-2025 09:11-0400Systolic blood jsykoopn302 mm[Hg] [facility]03-03-2025 11:23-0500Body hnaodn164.26 cm [facility]03-03-2025 11:23-0500Body mass index (BMI) [Ratio]35.2 kg/q5IaojecszwMercy Health [facility]rbana Hospital03-03-2025 11:23-0500Body berhxgvdbwy43.6 [degF][facility]03-03-2025 11:23-0500Body eoxome675.06 kgMer[facility] Health [facility]03-03-2025 11:23-0500Diastolic blood ekmyfmzd72 mm[Hg][facility]03-03-2025 11:23-0500 Heart rate84 /[facility]03-03-2025 11:23-0500 Respiratory rate18 /[facility]03-03-2025 11:23-0500 SaO2% (BldA) [Mass fraction]95 %[facility]03-03-2025 11:23-0500Systolic blood skzqaozn436 mm[Hg][facility] 05-16-2024 14:01-0500Body iribgg286.4 cmAllison Petznick DO Work Phone: [phone] [place], [place] 4587911-18-2024 14:01-0500Body mass index (BMI) [Ratio]36.07 kg/p1Ojvudzj Petznick DO Work Phone: 1(103)[address] [place], [place] 4587911-18-2024 14:01-0500Body temperature 97.7 [degF]Korin Petznick DO Work Phone: [phone])[address] [place], [place] 4587911-18-2024 14:01-0500Body .41 kgAllison Petznick DO Work Phone: 1(081)[address] [place], [place] 4587911-18-2024 14:01-0500Diastolic blood iclbipnq28 mm[Hg]Korin Petznick DO Work Phone: 1(964)[address] [place], [place] 4587911-18-2024 14:01-0500Heart rate79 /min Korin Petznick DO Work Phone: [phone])[facility] [place], [place] [address]Crfevezhud09-35-3410 14:01-9009MiX9% (BldA) [Mass fraction]97 %Korin Petznick DO Work Phone: 1(386)[address] [place], [place] 4587911-18-2024 14:01-0500Systolic blood thqbytgu973 mm[Hg]Korin Petznick DO Work Phone: 1(095)[address] [place], [place] 4587909-30-2024 10:39-0400Body psfypu521.26 cmMer[facility]09-30-2024 10:39-0400Body mass index (BMI) [Ratio]34.6 kg/d9AhzhpwczeMercy Health [facility]rbana Hospital09-30-2024 10:39-0400Body .31 kgMercy Health [facility]09-30-2024 10:39-0400Diastolic blood ipzkcrjd66 mm[Hg][facility]09-30-2024 10:39-0400 Heart rate81 /[facility]09-30-2024 10:39-0400 Respiratory rate12 /[facility]09-30-2024 10:39-0400 Systolic blood uftjcoep324 mm[Hg][facility]05-30-2024 09:21-0400Diastolic blood lcorztdn26 mm[Hg]Oliver Fitzgerald MD Work Phone: 1(346)[facility]05-30-2024 09:21-0400Heart rate 76 /minOliver Fitzgerald MD Work Phone: 1(872)[facility]05-30-2024 09:21-0400Systolic blood qugtpfff441 mm[Hg]Oliver Fitzgerald MD Work Phone: 1(636)[facility]05-30-2024 09:20-0400Body mass index (BMI) [Ratio]33.76 kg/v2KmceogqOliver Fitzgerald MD Work Phone: 1(370)[facility]05-30-2024 09:20-0400Body jyavxx840.69 kgOliver Fitzgerald MD Work Phone: 1(976)[facility]05-30-2024 09:20-6456FtS6% (BldA) [Mass fraction]98 %Oliver Fitzgerald MD Work Phone: 1(968)[facility]04-25-2024 09:21-0400Body omnkwk118.3 cmOliver Fitzgerald MD Work Phone: 1(342)[facility]04-25-2024 09:21-0400Body mass index (BMI) [Ratio]34.7 kg/i8VzbaslpOliver Fitzgerald MD Work Phone: 1(031)[facility]04-25-2024 09:21-0400Body wbwixw590.59 kgOliver Fitzgerald MD Work Phone: 1(115)[facility]04-25-2024 09:21-0400Diastolic blood oioauepi51 mm[Hg]Oliver Fitzgerald MD Work Phone: 1(689)[facility]04-25-2024 09:21-0400Heart rate 79 /minOliver Fitzgerald MD Work Phone: 1(342)[facility]04-25-2024 09:21-0400Systolic blood wxonuzqz322 mm[Hg]Oliver Fitzgerald MD Work Phone: [facility]Court[facility] MediaI[facility]03-27-2024 11:07-0400Body .26 cmMer[facility]03-27-2024 11:07-0400Body mass index (BMI) [Ratio]35.3 kg/m1LizzzzldfMercy Health Urbana Hospital03-27-2024 11:07-0400Body .46 kgMer[facility] Health [facility]03-27-2024 11:07-0400Diastolic blood dcgavbrm91 mm[Hg][facility] 09-23-2023 11:07-0400Heart rate82 /[facility] 09-23-2023 11:07-0400Respiratory rate16 /[facility] 09-23-2023 11:07-0400Systolic blood gzzsxyva256 mm[Hg][facility]09-27-2023 11:00-0400Body ywuyax329.26 cmBenjamin Ball Other [employer] Other 09-27-2023 11:00-0400Body mass index (BMI) [Ratio] 34.64 kg/h2Ojmibwks Ball Other [employer] Other 09-27-2023 11:00-0400Body diossk696.41 kgBenjamin Ball Other [employer] Other 09-27-2023 11:00-0400Diastolic blood waadkjbm83 mm[Hg] Julio Ball Other [employer] Other 09-27-2023 11:00-0400Respiratory rate12 /minBenjamin Ball Other [employer] Other 09-27-2023 11:00-0400Systolic blood zxlmbgub208 mm[Hg] Julio Ball Other [employer] Other Encounters Encounter DateEncounter TypeCare ProviderFacilityStart: 04-25-2025 End: 77-45-4290basjuvrbtsLdveccof Ball DO Work Phone: -[facility] Childrentart: 04-25-2025 End: 18-60-7561Fbccdkq encounter procedureBefarida Patton DO-[facility] Work Phone: Start: 56-82-3823emvwrwrcijRBVHO GRUBBUniOhio Valley Hospitaltart: 47-34-2779rctbqbyexnZSAUProtestant Hospitaltart: 01-17-2025 End: 73-16-5531kljtspeahaAWFFProtestant Hospitaltart: 01-12-2025 End: 95-00-9483Dzalrh outpatient visit 25 minutesAllomid Jacobznick DO Work Phone: [facility] 230Comment on above:Type 2 diabetes mellitus with stage 3a chronic kidney disease, with long-term current use of insulin (HCC) (Primary Dx); Type 2 diabetes mellitus with other circulatory complications (HCC); Class 2 severe obesity due to excess calories with serious comorbidity and body mass index (BMI) of35.0 to 35.9 in adult ([facility]-HCC)Start: 01-12-2025 End: 56-81-7615rovroozjymFBQGYFW M PETZNICKNot AvailableStart: 01-12-2025 End: 88-18-6251Jvspcx flowsheetAllison Eliot Petznick DO Work Phone: [facility] 230Start: 01-12-2025 End: 75-87-2834Rkyqig flowsheetAllison Eliot Petznick DO Work Phone: [facility] 230Start: 01-11-2025 End: 08-41-9154Gslkunwwb encounterAllison Eliot Petznick DO Work Phone: [facility] 230Comment on above:Appointment ConfirmationStart: 12-19-2024 End: 58-27-6389Ujdycvhvu Result EncounterMohamed Cliff Fitzgerald MD Work Phone: [facility] External Department UnsolicitedStart: 12-19-2024 End: 41-83-1659Kdpiatuss Result EncounterMohamed Cliff Fitzgerald MD Work Phone: [facility] External Department UnsolicitedStart: 11-24-2024 End: 03-89-4324Xaokan outpatient visit 25 minutesMohamed Janet Fitzgerald MD Work Phone: [facility]ascular SurgeryComment on above:Swelling of both lower extremities (Primary Dx); Severe claudication; Bilateral carotid bruitsStart: 96-38-4540tgnckmsyqnYDBDUniversity Hospitals Parma Medical Centertart: 11-02-2024 End: 51-44-9270kezjvojrvvVtnjvuhiwUniversity Hospitals [facility] Work Phone: Start: 11-02-2024 End: 28-69-5115Pmnosdc encounter procedureWatauga Medical Centersincere [facility]ician [facility] Work Phone: Start: 10-26-2024 End: 37-19-7732egbmxuwxgaJtnilaqheMercy Health [facility] Work Phone: Start: 10-26-2024 End: 83-44-0661Xvxqayh encounter procedureNovant Health Physician [facility] Work Phone: Start: 92-49-4874zocmttocyaGGQGUniversity Hospitals Parma Medical Centertart: 09-15-2024 End: 11-15-8417ftzwkjrwjpOFASBOIRomain Llanes AvailableStart: 05-48-4388Sda- patient / Non-visitFircentra [facility] Work Phone: Start: 08-29-2024 End: 20-28-5501oxkzswfpayDluozcdbxUniversity Hospitals Ely[facility] Center Work Phone: Start: 08-29-2024 End: 08-93-4236Lcknfvy encounter procedureNovant Health Physician GroupParkview [facility] Work Phone: Start: 06-07-2024 End: 50-45-7657wglnmcylpwIOSIProtestant Hospitaltart: 05-16-2024 End: 99-60-8521Fijubc outpatient visit 25 minutesKorin Mercedes DO Work Phone: [facility] 230Comment on above:Class 2 severe obesity due to excess calories with serious comorbidity and body mass index (BMI) of 36.0 to 36.9 in adult (CMS/HCC) (Primary Dx); Type 2 diabetes mellitus with other circulatory complications (CMS/HCC); Type 2 diabetes mellitus with stage 3a chronic kidney disease, with long-term current use of insulin (HCC) (CMS/HCC)Start: 05-16-2024 End: 25-75-2307yfyaarjegrTHMZLSW M PETZNICKNot AvailableStart: 03-28-2024 End: 40-37-0325mhcsxxdqypDvrlikpizUniversity Hospitals E[facility] Center Work Phone: Start: 03-28-2024 End: 82-44-7566Puesgqj encounter procedureNovant Health Physician [facility] Work Phone: Start: 11-58-9266Wqhwhjj encounter [facility] Hospitaltart: 11-26-2023 End: 60-88-8452Djmqwu outpatient visit 15 minutesMohamed Janet Fitzgerald MD Work Phone: [facility] Comment on above:Swelling of both lower extremities (Primary Dx)Start: 11-09-2023 End: 27-71-3748Kukklbqvn Result EncounterMohamed Cliff Fitzgerald MD Work Phone: [facility] External Department UnsolicitedStart: 11-09-2023 End: 64-94-9610Lsperaifk Result EncounterMohamed Cliff Fitzgerald MD Work Phone: QGHZ External Department UnsolicitedStart: 10-22-2023 End: 26-46-2544Qmcoag outpatient visit 15 minutesMohamed Janet Fitzgerald MD Work Phone: [facility] Comment on above:Severe claudication (CMS-HCC) (Primary Dx); Swelling of both lower extremitiesStart: 09-23-2023 End: 63-25-8285lefmviorfaBjhjdzraoUniversity Hospitals E[facility] Center Work Phone: Start: 09-23-2023 End: 81-91-6762Bvqxoox encounter [facility] Work Phone: Start: 05-27-2023 End: 33-07-8639tfegxxzxizAhwlxbob Ball Other [employer] Other Start: 64-09-2857Hbghdstpp encounterBenjamin BallFPG [facility] ClinicStart: 04-28-2023 End: 86-88-9388iciamrywtcRbehmguc Ball Other [employer] Other Start: 44-00-2048Lyypxdtqn encounterBenjamin BallFPG [facility] ClinicStart: 04-27-2023 End: 19-32-3657vxwpednoquJpmdmqhz Ball Other [employer] Other Start: 32-48-3641Ssbhavbyd encounterBenjamin BallFPG [facility] ClinicStart: 04-20-2023 End: 39-89-6863hxmvppffxfAponkbgh Ball Other [employer] Other Start: 65-91-2555Tadwybipo encounterBenjamin BallFPG [facility] ClinicStart: 03-27-2023 End: 65-51-4917usouyiuwriWcefyfnu Ball Other [employer] Other Start: 63-21-8677Lnkpvxidp encounterBenjamin BallFPG [facility] ClinicStart: 03-26-2023 End: 44-19-5861cmbtoacpooJmvafkao Ball Other [employer] Other Start: 10-62-7017Dmpgxltuo encounterBenjamin BallFPG [facility] ClinicStart: 03-25-2023 End: 17-59-1756xsbzabjhxdMblhgmve Ball Other [employer] Other Start: 69-55-6836Hcyxqpm encounter procedureBenalvamin KeelyG [facility] ClinicStart: 02-16-2023 End: 32-25-2498rsuqvzyhsvZrkrhbua Ball Other [employer] Other Start: 31-67-8453Alhsnzzch encounterBenerna iRggsG [facility] ClinicStart: 12-03-2022 End: 98-26-1327jiuqacaohcJoitpmyy Ball Other [employer] Other Start: 70-52-9298Iezbywqww encounterBenerna RiggsG [facility] ClinicStart: 10-24-2022 End: 86-62-1865ezojkvwrvnUGJO CHACKOFacility:V8Agkoe: 09-19-2022 End: 71-44-6137sicakkbfveKadmtsvk Ball Other [employer] Other Start: 42-46-4506Gceedid evaluation of patient and reportBenerna RiggsG [facility] ClinicStart: 09-15-2022 End: 40-13-4289yiqssvjyeyBR JULIO BALLFacility:X8Wfgtp: 09-02-2022 End: 88-77-5906ourouvtrquYOZT CHACKOFacility:E4Eaghi: 07-04-2022 End: 63-42-8748tiskpfffpwAV JULIO BALLFacility:D8Xsdbk: 06-24-2022 End: 73-42-4830tfqewhsuhgOEEPSXU TUCKERFacility:K0Ffblx: 05-07-2022 End: 73-71-5285ytgfldlnpcTJ JULIO BALLFacility:P5Ivnoe: 04-08-2022 End: 96-37-6763hcyufojvnjFW JULIO BALLFacility:U7Jihwi: 04-01-2022 End: 40-65-6441oqgehodizfFM JULIO BALLFacility:N0Yhdql: 03-28-2022 End: 51-40-7335cgliztojbvSV JULIO BALLFacility:W9Mobpr: 02-07-2022 End: 38-35-1023hhcagfdyuqJD JULIO BALLFacility:C6Tmhfg: 01-28-2022 End: 47-88-4484fzzqyuaulfWX JULIO BALLFacility:W1Jvoje: 01-21-2022 End: 08-89-9766swnjlqbbjjHQ JULIO BALLFacility:C0Gakxx: 12-02-2021 End: 60-70-4585dunrluybllPI JULIO BALLFacility:K7Zdqmm: 41-42-4105Sklwe health examinationBefarida Patton Other [facility] [employer] Other Start: 06-04-2018 End: 06-00-3489Axcnybtjga and management of inpatientBEFARIDA PATTONFacility:[facility] Start: 12-22-2017 End: 76-09-0178Yunwtxfdam and management of inpatientLAMEKA SQUIRES Facility:[facility] Procedures DateProcedureProcedure DetailPerforming ClinicianStart: 88-30-8438Fxodqdqecg glycosylated b4rSnjbibs M Jesus DO Work Phone: Start: 14-39-5990JXFKJQGZI BLOOD PRESSUREMohamed Cliff Fitzgerald MD Work Phone: Start: 92-19-6808Acdbdxpzgi glycosylated o7iAtwgesrKorin Jacobmarilyn DO Work Phone: Start: 74-07-7485OPEEUGRQZ BLOOD PRESSUREMohamed Cliff Fitzgerald MD Work Phone: Start: 74-70-2998Uepproyyxij of Cardiac Rhythm, Single GUNNAR WALLACEStart: 17-82-6657YYUINZVUEHO OF MULTIPLE CORONARY ARTERIES USING OTH CONTRASTEHAB A TONETAHAWYStart: 25-56-7102Lprfwvnyeim of Cardiac Rhythm, SingleANIL MATHEWStart: 87-64-8970GZOVCLLAOBJZYVO OF RIGHT AND LEFT HEART, TRANSESOPHAGEALANIL MATHEWStart: 93-26-7310Cptyliltp for malignant neoplasm of colonBelucaalvamin Ball Other Start: 77-95-5997Pgtvdbdgp for malignant neoplasm of prostateJulio Patton Other Depression screeningJulio Patton Other Plan of Treatment DateCare ActivityDetailAuthorStart: 05-18-2025 End: 81-84-2532Aoeukng encounter procedureNOMS [facility] 230Start: 04-14-2025 Hemoglobin A1c measurementDiabetes: Hemoglobin X6MPVWV HealthcareStart: 09-30-2025Medicare Annual Wellness (AWV)Medicare Annual Wellness (AWV)[facility] HealthcareStart: 39-56-9098Jkjdrrted vaccinationProNorth [facility] Medical Center Health SystemStart: 01-12-2025 End: 03-30-3440Gufldnn encounter procedureNOMS [facility] 230Comment on above:Type 2 diabetes mellitus with other circulatory complications (HCC)Start: 12-28-2024 COVID-19 Vaccine ()COVID-19 Vaccine () [facility] SystemStart: 57-58-2474Ghvmnicvva A1c measurementDiabetes: Hemoglobin E3JZPAD HealthcareStart: 12-01-2024 End: 41-80-5201Qthptmm encounter egcesgtrm40/05/2025 9:00 AM EDT Office Visit [facility] [address] [place] [address] Oliver Fitzgerald MD [address], [address] [address] [facility] CareStart: 96-93-8770Kpejn BMI ScreeningAdult BMI Screening [facility] SystemStart: 50-26-0231Xaibmsz ScreeningTobacco Screening [facility] SystemStart: 11-24-2024 End: 79-85-3475WV Carotid arteries - bilateralVas carotid duplex bilateral Vascular Ultrasound Routine Swelling of both lower extremities Severe c laudication (CMS-HCC) Bilateral carotid bruits Expected: 11/24/2024, Expires: 11/24/2025[facility] Work Phone: Comment on above:Expected: 11/24/2024, Expires: 11/24/2025Start: 11-24-2024 End: 55-31-1267XW.doppler Extremity arteries - bilateral for physiologic artery studyVas art doppler lwr bilat mult lev/PVR Vascular Ultrasound Routine Swelling of both lower extremities Severe claudication (CMS-HCC) Bilateral carotid bruits Expected: 11/24/2024, Expires: 11/24/2025[facility] SystemComment on above:Expected: 11/24/2024, Expires: 11/24/2025Start: 05-42-0384Opoge BMI ScreeningAdult BMI ScreeningMission Hospital McDowelltart: 87-14-3658Ttxqvdm ScreeningTobacco ScreeningProUK Healthcaretart: 09-15-2024 End: 21-76-1044Scvrqbt encounter mcvwgghyx78/20/2025 2:15 PM EDT Office Visit [facility] [address] [place] [phone] Korin Mercedes, [address] [place] [address] [facility] 230Start: 71-69-7636Babynxyitv A1c measurementDiabetes: Hemoglobin N0EEHRRMercy Hospital St. LouisStart: 76-17-6473Ienhhsgoo vaccinationInfluenza VaccineMission Hospital McDowelltart: 11-05-2023 End: 73-19-6117Ikbxxjs encounter armlzbgwx55/09/2024 1:20 PM EDT Office Visit [facility] [address] [place] [address] Oliver Fitzgerald MD [address], [address] [address] [facility] CareStart: 10-22-2023 End: 77-44-2869DT.doppler Extremity arteries - bilateral for physiologic artery studyVas art doppler lwr bilat mult lev/PVR Vascular Ultrasound Routine Severe claudication (CMS-HCC) Expected: 10/22/2023, Expires: 10/21/2024[facility] Work Phone: Comment on above:Expected: 10/22/2023, Expires: 10/21/2024Start: 66-05-5027Ittyb screening for proteinDiabetes: Urine Protein ScreeningDAVIS [facility]OSP[facility] HealthcareStart: 07-65-4246WKlB,Tdap and Td Vaccines (2 - Td or Tdap)DTaP,Tdap and Td Vaccines (2 - Td or Tdap)[facility] SystemStart: 00-61-5918beuhpvmrkgMispbjjoofOdmdvrqe:N0Lewuw: 97-19-3599Epyktjexiaczwz of varicella zoster vaccineZoster (Shingles) Vaccine (2 of 3)[facility] SystemStart: 11-94-7859Udbv Risk ScreeningFall Risk ScreeningOhioHealth Berger Hospital SystemStart: 70-17-9855Xezlx screening for proteinDiabetes: Urine Protein ScreeningDAVIS [facility] HealthcareStart: 73-55-2557Pzzds BMI Follow Up PlanAdult BMI Follow Up PlanProSelect [facility] [place] SystemStart: 64-63-1392Vdodjrynzk Screening Depression ScreeningOhioHealth Berger Hospital SystemStart: 45-36-4257Eqxfqjnk screening Diabetes: Retinopathy ScreeningDA[facility] HealthcareStart: 01-22-1941Medicare Annual Wellness (AWV)Medicare Annual Wellness (AWV)[facility] HealthcareStart: 1940 Medicare Annual Wellness VisitMedicare Annual Wellness VisitBucyrus Community HospitalComprehensive metabolic 1999 panel - Serum or PlasmaMercy Health Urbana HospitalComprehensive metabolic 1999 panel - Serum or PlasmaP[facility] Rivera [facility] Immunizations Immunization DateImmunizationNotesCare UteddqfkKgotwhsd66-04-9008hmvjbdkau, high dose seasonal, preservative-freeMercy Health Urbana Hospital09-30-2024 influenza virus vaccine, unspecified formulationOliver Fitzgerald MD Work Phone: [facility] HospitalEppggu85-37-4615kgyfhxkmm virus vaccine, unspecified formulationMercy Health Urbana Hospital09-27-2023 influenza, high dose seasonal, preservative-freeBenjamin Ball Other [employer] Other [id number]-65 Pfizer (Pediatric)Julio Patton Other [facility]11-04-2022influenza virus vaccine, split virus (incl. purified surface antigen)Julio Patton Other [employer] Other [id number] virus vaccine, unspecified formulationMercy Health Urbana Hospital11-04-2022Influenza, High-dose Seasonal, Quadrivalent, Preservative FreeAllison Jesus DO Work Phone: [facility] LouisPkofifmcfo13-94-7351ENAYD-33 Vaccine Pfizer - Documentation Purposes OnlyJulio Patton Other [facility]09-24-2021influenza virus vaccine, split virus (incl. purified surface antigen)Julio Patton Other [employer] Other [id number] virus vaccine, unspecified formulationMercy Health Urbana Hospital09-14-2020influenza virus vaccine, split virus (incl. purified surface antigen)Julio Patton Other [place] [place] [place] [employer] Other [id number] virus vaccine, unspecified formulationMercy Health Urbana Hospital10-04-2019influenza virus vaccine, split virus (incl. purified surface antigen)Julio Patton Other [employer] Other [id number] virus vaccine, unspecified formulationMercy Health Urbana Hospital09-11-2018influenza virus vaccine, split virus (incl. purified surface antigen)Julio Patton Other [employer] Other [id number] virus vaccine, unspecified formulationMercy Health Urbana Hospital09-11-2018Seasonal trivalent influenza vaccine, adjuvanted, preservative freeAllison Petznick DO Work Phone: noSS[facility] CenterSklyqvnztt29-27-3314bkqebpevg virus vaccine, split virus (incl. purified surface antigen)Julio Patton Other [place] [employer] Other [id number] virus vaccine, unspecified formulationMercy Health Urbana Hospital10-03-2017influenza, high dose seasonal, preservative-freeAllison Petznick DO Work Phone: noSS[facility] CenterWxvhqgswmf15-71-2317zixbrsive virus vaccine, split virus (incl. purified surface antigen)Julio Patton Other [place] [employer] Other [id number] virus vaccine, unspecified formulationMercy Health Urbana Hospital10-20-2016influenza, high dose seasonal, preservative-freeAllison Petznick DO Work Phone: noSS[facility] CenterPfpadosjws86-94-0055hpcynczlzlij conjugate vaccine, 13 valentBenjamin Stevo Other [facility]03-24-2015zoster vaccine, liveAllison Petznick DO Work Phone: noSS[facility] CenterTaoqfyzdft01-31-2807vhikth vaccine, unspecified formulationMolynnette Fitzgerald MD Work Phone: [facility]10-07-2013tetanus and diphtheria toxoids, adsorbed, preservative free, for adult use (5 Lf of tetanus toxoid and 2 Lf of diphtheria toxoid)Julio Patton Other [facility]05-15-2013 pneumococcal polysaccharide vaccine, 23 valentBenerna Patton Other [facility] Payers DatePayer CategoryPayerPolicy [id number] MEDICARE ADVANTAGE [id number] 2022MedicareAETNA MEDICARE AETNA MEDICARE PLAN (PPO) [id number] 2021-Present [phone] [id number] [place] [address] [id number] Medicare HMOAETNA MEDICARE [id number] [id number] 2..[id number] 2..1.030758.3.57[id number] 2..1.554644.3.57[id number] 2.0.1.340161.3.57[id number] 2.0.1.967127.3.57[id number] 2.16.840.1.592524.3.57[id number] 2.16.840.1.710791.3.57[id number] 2.16.840.1.316744.3.57[id number] 2.16.840.1.299931.3.579.2.17009-10-4212Kyypodi2553454 2.16.840.1.844546.3.579.2.26871-43-6509Nwjnvfw7105853 2.840.1.455861.3.57[id number] 2.840.1.337626.3.579.2.12025-30-6956Omkzeky2557916 2.16840.1.700166.3.57[id number] 2.840.1.079832.3.57[id number] 2.840.1.423168.3.57[id number] 2.16840.1.529316.3.579.2.09464-85-4950Btyogts3624837 2.16840.1.705656.3.579.2.13652-01-7970Nmzyeov1021591 2.16840.1.790100.3.57[id number] 2.16840.1.122005.3.57[id number] 2.16840.1.418459.3.57[id number] 2.16.840.1.218[id number] Health [id number] Self-paySelf [id number] Social History DateTypeDetailFacilityUnknown if ever smokedTroutdale [employer] Other Start: 11-12-2023 End: 17-49-1273Pwz Assigned At [facility] [employer] Other Start: 09-23-2023 End: 51-35-1987Wyigglz smoking status NHISNever smoked tobacco (finding) [facility] Hospitaltart: 62-72-6263Jzy Assigned At [facility] CenterMale [facility] Hospitaltart: 12-04-2022 End: 21-92-6987Vvtrled smoking status NHISEx-smokerNOMS HealthcareHistory of tobacco useCurrent smokerNOMS HealthcareHistory of tobacco useCigarette Smoker [facility] HealthcareStart: 65-63-8886Iycxbay use and exposureSmokeless tobacco non-userNOMS HealthcareStart: 27-96-6216Bogfcxqtp beverage intakeLifetime non- drinker (finding)NOM HealthcareStart: 11-12-2023 End: 22-56-9210Vdtlfye of Social functionProNorth [facility] Medical Center Health SystemHow often to you have a drink containing alcohol?NeverNOMS HealthcareStart: 93-68-7129Llw many standard drinks containing alcohol do you have on a typical day?Patient does not drinkMarietta Memorial Hospital [employer] SystemStart: 81-57-2328Nmb assigned at birthNot on file [facility] SystemStart: 67-96-0176Yofdjaq smoking status NHISTobacco smoking consumption unknownProSelect Medical Specialty [facility] [place] SystemStart: 10-22-2023 End: 99-94-3730Zizzimphg beverage intakeDeferOhioHealth Berger Hospital SystemStart: 05-17-2020 End: 16-70-6699NyrBari (finding)[facility] Hospitaltart: 80-93-4881Qlybrnz CommentQuit awhile back [facility] [employer] SystemStart: 09-15-2024 End: 13-31-6176Fnayfzzsb beverage intakeCurrent drinker of alcohol (finding)[facility]Start: 60-72-5090Exuslpi Commentvery [facility] Medical Equipment Procedure CodeEquipment CodeEquipment Original TextEquipment IdentifierDates Inject 1 each under the skin in the morning and 1 each at noon and 1 each in the evening and 1 eachbefore bedtime.[id number]: 37-40-4333Xmiuum 1 each under the skin [id number]: 09-18-2024 Functional Status ZceaFnwrbsomjkGzbnzzCbwbzhex44-81-4120Klhfzhw Health Questionnaire 2 item (PHQ- 2) [Reported][facility] LouisGlktcnsnrf09-91-0070Modgldg Health Questionnaire 2 item (PHQ- 2) [Reported][facility] LouisWwufcccmwn44-02-5577Kuzep score [AUDIT-C]0 11/12/2023 1:55 PM EDT Jasmyn Ordaz LPNNOMS [facility] Clinical Notes 11-27-2017 to 01-17-2025 Note Date & KcozAhsxPflcksuy59-53-5205 NoteUT Electrophysiology Consult Note Reason for visit: follow up , s/p atrial lead dislodgment with extraction of old lead and reimplantation of new lead 07/08/2022 , s/p DCCV at [facility] for afib 01/17/2025 Patient state he hasn't [...] in the atrial channel. he does have citizen [place] conduction and management of the device he had significant sinus node dysfunction with sinus bradycardia in the 40s with citizen [place] QRS. however he does have AV Wenckebach [...] medical history of Afib was admitted to [facility] and was noted to have bradycardia. initial plans for cardioversion was aborted and he underwent a dual-chamber Biotronik pacemaker implant by Dr. Armenta on 05/06/22. subsequently he was advised to have a cardioversion done as an outpatient. [facility] and at that time [...] Use: Not At Risk (11/12/2023) Re[facility] from [facility] Healthcare AUDIT-C Frequency of Alcohol Consumption: Never Average Number of Drinks: Patient does not drink Frequency of Binge Drinking: Never Financial Resource Strain: Not on file Food Insecurity: No Food Insecurity (11/24/2024) Received from [employer] Hunger Screening Within the past 12 [...] on file Intimate Partner Violence: Unknown (08/20/2023) [place] Safety & Environment Fear of Current or Ex-Partner: Not on file Emotionally Abused: (more content not included)...[facility] [place]07-22-2025 NoteRefer to note belowUnUniversity Hospitals [facility] 01-13-2025 Evaluation note* Diagnosis Benign prostatic hyperplasia with urinary frequency- Primary Type 2 diabetes mellitus with stage 3a chronic kidney disease, with long-term current use of insulin (HCC) Severe obesity with body mass index (BMI) of 35.0 to 35.9 and comorbidity (CMS-HCC) Type 2 diabetes mellitus with other circulatory complications (HCC)- Primary Type 2 diabetes mellitus with stage 3a chronic kidney disease, with long-term current use of insulin (HCC) Severe obesity with body mass index (BMI) of 35.0 to 35.9 and comorbidity (CMS-HCC) Class 2 severe obesity due to excess calories with serious comorbidity and body mass index (BMI) of36.0 to 36.9 in adult (CMS-HCC)- Primary Type 2 diabetes mellitus with other [...] index (BMI) of36.0 to 36.9 in adult (CMS-HCC) Type 2 diabetes mellitus without complications (HCC) Type 2 diabetes mellitus with stage 3a chronic kidney disease, with long-term current use of insulin (HCC)- Primary Type 2 diabetes mellitus with other circulatory complications (HCC) Class 2 severe obesity due to excess calories with serious comorbidity and body mass index (BMI) of35.0 to 35.9 in adult (CMS-HCC) documented in this encounter [facility] LouisXueqvrhivl01-19-7893 History of Present illness Narrative* Korin Mercedes [...] disease, with long-term current use of insulin ([facility]) Class 2 severe obesity due to excess calories with serious comorbidity and body mass index (BMI) of35.0 to 35.9 in adult ([facility]) Stage 3a chronic kidney disease ([facility]) Neuropathy Myocardial infarction ([facility]) Essential hypertension Elevated cholesterol Coronary artery disease involving citizen [place] 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 Benign prostatic hyperplasia [...] Daily SC 24 Units Daily SC Labs [facility] HEMOGLOBIN A1C/HEMOGLOBIN.TOTAL:MFR:PT:BLD:QN: 8.3 Outpatient prescription Medication marked [...] disease, with long-term current use of insulin ([facility]) - Primary Class 2 severe obesity due to excess calories with serious comorbidity and body mass index (BMI) of35.0 to 35.9 in adult ([facility]) Type 2 diabetes mellitus with other circulatory complications ([facility]) During the appointment today all pertinent [...] today. documented in this encounterMercy Hospital St. LouisXalikxqehu98-71-2844 Telephone encounter Note* Telephone Encounter - Josiane Marsh - 01/11/2025 3:05 PM EDT LVM appointment reminder [facility] LouisUjuvnbkyuz07-53-1035 Miscellaneous Notes* Telephone Encounter - Josiane Marsh - 01/11/2025 3:05 PM EDT LVM appointment reminder documented in this [facility]05-29-2025 Evaluation + Plan note* Assessment & Plan Note - Oliver Fitzgerald MD - 11/24/2024 9:35 AM EDT Associated Problem(s): Bilateral carotid bruits Carotid duplex ultrasound [facility]05-29-2025 Evaluation + Plan note* Assessment & Plan Note - Oliver Fitzgerald MD - 11/24/2024 9:35 AM EDTAssociated Problem(s): Severe claudication We will get PVR [facility]05-29-2025 Evaluation + Plan note* Assessment & Plan Note - Oliver Fitzgerald MD - 11/24/2024 9:35 AM EDTAssociated Problem(s): Swelling of both lower extremities Continue compression stockings leg elevation exercise [facility]05-29-2025 Miscellaneous Notes* Assessment & Plan Note [...] stockings leg elevation exercise documented in this encounterBucyrus Community Hospital05-29-2025 History of Present illness Narrative* Oliver [...] History: Past Medical History: Diagnosis Date A-fib ([facility]) Diabetes mellitus with diabetic polyneuropathy, without long-term current use of insulin ([facility]) Ingrown nail Paronychia of toenail, left PVD (peripheral vascular disease) Stroke ([facility]) Past Surgical History: No past surgical history [...] Unknown (08/20/2023) Received from [facility] Safety & Environment Fear of Current or [...] you for your understanding. documented in this encounterBucyrus Community Hospital03-03-2025 Evaluation note* Diagnosis Onset Date Resolution Status Admit Date ASHD (arteriosclerotic heart disease) acuteAugust 29, 2024 11:18amBenign prostatic hyperplasia with lower urinary tract symptomsacuteAugust 29, 2024 11:18amChronic venous insufficiency of lower extremityacuteAugust 29, 2024 11:18amElevated cholesterolacuteAugch 2024 11:18amObesityacuteMarch 2024 11:18amParoxysmal atrial fibrillationacute August 29, 2024 11:18amPrimary hypertensionacuteAugust 29, 2024 11:18amType 2 diabetes mellitus with hyperglycemia2024 11:18amStage 3a chronic kidney diseasedeletedAugust 29, 2024 11:18am [facility] Work Phone: 1(916) 925-911403-03-2025 Evaluation note* Diagnosis Onset Date Resolution Status Admit Date ASHD (arteriosclerotic heart disease) acuteAugust 29, 2024 11:18amBenign prostatic hyperplasia with lower urinary tract symptomsacuteAugust 29, 2024 11:18amChronic venous insufficiency of lower extremityacuteAugust 29, 2024 11:18amElevated cholesterolacuteAugust 29, 2024 11:18amObesityacuteMarch 2024 11:18amParoxysmal atrial fibrillationacute August 29, 2024 11:18amPrimary hypertensionacuteMar2024 11:18amType 2 diabetes mellitus with hyperglycemiaacuteAugust 29, 2024 11:18amStage 3a chronic kidney diseasedeletedAugch 2024 11:18amChronic venous insufficiencyacute October 26, 2024 8:55amType 2 diabetes mellitus with hyperglycemiaacuteApril 2024 8:55amUlcer of left lower legacuteApril 2024 8:55amAbrasion, left lower leg, subsequent encounteracuteMay 2024 8:27amChronic venous insufficiencyacuteMay 2024 8:27amType 2 diabetes mellitus with hyperglycemiaacuteMay 2024 8:27am [facility] Work Phone: 1(800) 565-149312-10-2024 NoteUT Electrophysiology Consult Note Reason for visit: follow up , s/p atrial lead dislodgment with extraction of old lead and reimplantation of new lead 07/08/2022 , s/p DCCV at [facility] for afib 06/07/24 Denies chest pain, palpitations, [...] in the atrial channel. he does have [place] conduction and management of the device he had significant sinus node dysfunction with sinus bradycardia in the 40s with [place] QRS. however he does have AV Wenckebach [...] on sotalol and tolerating medication well - [facility] 353 10/14/22 HPI: Patient here for [...] medical history of Afib was admitted to [facility] and was noted to have bradycardia. initial plans for cardioversion was aborted and he underwent a dual-chamber Biotronik pacemaker implant by Dr. Armenta on 05/06/22. subsequently he was advised to have a cardioversion done as an outpatient. today presented [facility] for [facility]version and at that time [...] Tobacco Use: Medium Risk (05/16/2024) Received from [employer] Patient History Smoking Tobacco Use: Former Smokeless Tobacco Use: Never Passive Exposure: Not on file Alcohol Use: Not At Risk (11/12/2023) Received from [employer], [employer] AUDIT-C Frequency of Alcohol Consumption: Never Average Number of Drinks: Patient does not drink Frequency of Binge Drinking: Never Financial Resource Strain: Not on file Food Insecurity: No Food Insecurity (11/26/2023) Re[facility] from [employer] [employer] Hunger Screening Within the past 12 months [...] on file Intimate Partner Violence: Unknown (08/20/2023) [place] Safety & Environment Fear of Current or Ex-Partner: Not on file Emotionally Abused: Not on file Physically Abused: Not on file Sexually Abused: Not on file Physically or Sexually Abused: Not on file Depression: Not at risk (05/16/2024) [facility] PHQ-2 Patient Health Questionnaire-2 Score: [...] aspart ([employer]ovoLOG, Fiasp) 100 (more content not included)...[facility] [place]11-18-2024 History of Present illness Narrative* Korin Mercedes, [...] a couple times a day in the alf. States he doesn't care about eating healthy. He only eats out about 3-4 days a week. Usuallygets a burger from [employer]. Diet: none Drinks: water, tea with milk and black coffee Exercise: none Hypoglycemia: none SUBJECTIVE: PROBLEM LIST SOCIAL ALLERGIES: Patient Active Problem List Diagnosis Type 2 diabetes mellitus with stage 3a chronic kidney disease, with long-term current use of insulin (HCC) ([facility]) Class 2 severe obesity due to excess calories with serious comorbidity and body mass index (BMI) of36.0 to 36.9 in adult ([facility]) Stage 3a chronic kidney disease (HCC) ([facility] Neuropathy Myocardial infarction ([facility]) Essential hypertension ([facility]) Elevated cholesterol ([facility]) Coronary artery disease involving citizen [place] 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 ([facility]) Benign prostatic hyperplasia with lower urinary tract symptoms Paroxysmal atrial fibrillation ([facility]) Type 2 diabetes mellitus with other circulatory complications ([facility]) Social History Tobacco Use Smoking status: [...] with long-term current use of insulin (HCC) ([facility]) Relevant Orders POCT glycosylated hemoglobin (Hb A1C) docked device (Completed) Class 2 severe obesity due to excess calories with serious comorbidity and body mass index (BMI) of36.0 to 36.9 in adult ([facility]) - Primary Type 2 diabetes mellitus with other circulatory complications ([facility]) During the appointment today all pertinent [...] today. documented in this encounterMercy Hospital St. LouisYzxwpptuuc75-98-3133 History of Present illness Narrative* Oliver Fitzgerald [...] History: Past Medical History: Diagnosis Date A-fib ([facility]) Diabetes mellitus with diabetic polyneuropathy, without long-term current use of insulin ([facility]) Ingrown nail Paronychia of toenail, left PVD (peripheral vascular disease) ([facility]) Stroke ([facility]) Past Surgical History: No past surgical history [...] Unknown (08/20/2023) Received from [facility] Safety & Environment Fear of Current or [...] you for your understanding. documented in this encounterBucyrus Community Hospital04-25-2024 Evaluation + Plan note* Assessment & Plan Note - Oliver Fitzgerald MD - 10/22/2023 9:56 AM EDT Associated Problem(s): Swelling of both lower extremities We will prescribe compression stockings after making sure he does not have severe arterial occlusive disease. [facility]04-25-2024 Miscellaneous Notes* Assessment & Plan Note [...] follow-up after the PVR. documented in this encounterBucyrus Community Hospital04-25-2024 Evaluation + Plan note* Assessment & Plan Note - Oliver Fitzgerald MD - 10/22/2023 9:55 AM EDT Associated Problem(s): Severe claudication (CMS-HCC) We will get a PVR and follow-up after the PVR. [facility]04-25-2024 History of Present illness Narrative* Oliver [...] History: Past Medical History: Diagnosis Date A-fib ([facility]) Diabetes mellitus with diabetic polyneuropathy, without long-term current use of insulin ([facility]) Ingrown nail Paronychia of toenail, left PVD (peripheral vascular disease) ([facility]) Stroke ([facility]) Past Surgical History: No past surgical history [...] Unknown (08/20/2023) Received from [facility] Safety & Environment Fear of Current or [...] you for your understanding. 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 [employer] Other 03-24-2023 Evaluation note* Encounter Date Diagnosis Assessment Notes Treatment Notes Treatment Clinical Notes 24 Mar, 2023 Dysuria (ICD-10 - R30.0) [facility] Other 06-06-2022 NotePROCEDURE: XR HIP LT 2 3V W PELVIS COMPARISON: None. HISTORY: Pain of left hip joint FINDINGS: BONES:No acute fracture or dislocation. Minimal bilateral hip osteoarthropathy. SOFT TISSUES:Negative. No visible soft tissue swelling. EFFUSION:None visible. OTHER: Electronic device projects over the right hemipelvis IMPRESSION: No acute abnormality Electronically authenticated by: NICOLE THOMAS Date: 2021-12-02 20:59The [facility] HospitalYidshaid11-07-5355 History general Narrative - Reported* Type Description Date Surgical History Problem Title : Othe r Surgery, Problem Comment : [facility] PTCA/stent RCA 2002 [facility] PTCA/PABLITO RCA 2014[facility] 11/2017Colonoscopy 01/2018, Problem Status : Resolved, Surgical HistoryProblem Title : past surgical history reviewed, Problem Description : past surgical history reviewed, Problem Comment : reviewed - no changes required, Problem Status : Resolved,Surgical HistoryProblem Title : surgical procedures, hx of, Problem Description : surgical procedures, hx of, Problem Comment : [facility] PTCA/stent RCA 2002 [facility] PTCA/PABLITO RCA 2014 [facility] 11/2017 Colonoscopy 01/2018, Problem Status : Active,Surgical HistoryProblem Title : surgical procedures, hx of, Problem Description : surgical procedures, hx of, Problem Comment : [facility] PTCA/stent RCA 2002 [facility] PTCA/PABLITO RCA 2014 [facility] 11/2017, Problem Status : Resolved,Surgical HistoryProblem Title : surgical procedures, hx of, Problem Description : surgical procedures, hx of, Problem Comment : [facility] PTCA/stent RCA 2002 [facility] PTCA/PABLITO RCA 2014, Problem Status : Resolved,Surgical HistoryProblem Title : surgical procedures, hx of, Problem Description : surgical procedures, hx of, Problem Comment : [facility] PTCA/stent RCA 2002, Problem Status : Resolved, [employer] Other Evaluation noteNo InformationNort YouData Other Evaluation note* Diagnosis Onset Date Resolution Status ASHD (arteriosclerotic heart disease) acuteBenign prostatic hyperplasia with lower urinary tract symptomsacuteChronic kidney diseaseacuteElevated cholesterolacuteHypertensionacuteParoxysmal atrial fibrillationacute [facility] Work Phone: Evaluation note* Diagnosis Onset Date Resolution Status ASHD (arteriosclerotic heart disease) acuteBenign prostatic hyperplasia with lower urinary tract symptomsacuteChronic venous insufficiency of lower extremityacuteElevated cholesterolacuteMedicare annual wellness visit, subsequentacuteObesityacuteParoxysmal atrial fibrillation acutePrimary hypertensionacuteStage 3a chronic kidney diseaseacuteType 2 diabetes mellitus with hyperglycemiaacute [facility] Work Phone: Evaluation note* Diagnosis Benign prostatic hyperplasia with urinary frequency- Primary Type 2 diabetes mellitus with stage 3a chronic kidney disease, with long-term current use of insulin (HCC) ([facility]/HCC) Severe obesity with body mass index [...] long-term current use of insulin (HCC) (CMS/HCC) documented in this encounter [facility] HealthcareEvaluation note* Diagnosis Severe claudication ([facility]-HCC)- Primary Swelling of both lower extremities [facility] Diagnosis Swelling of both lower extremities- Primary [facility]* Diagnosis Onset Date Resolution Status Admit Date ASHD (arteriosclerotic heart disease) acuteMarch 2024 11:18amBenign prostatic hyperplasia with lower urinary tract symptomsacuteMarch 2024 11:18amChronic venous insufficiency of lower extremityacuteMarch 2024 11:18amElevated cholesterolacuteMarch 2024 11:18amParoxysmal atrial fibrillationacuteMarch 2024 11:18amPrimary hypertensionacuteMarch 2024 11:18amStage 3a chronic kidney diseaseacute August 29, 2024 11:18amType 2 diabetes mellitus with hyperglycemiaacuteAugust 29, 2024 11:18amObesitydeletedMarch 2024 11:18am [facility] Work Phone: Evaluation note* Diagnosis Severe claudication- Primary Swelling of both lower extremities Swelling of both lower extremities- Primary Severe claudication Bilateral carotid bruits documented in this encounter [facility] System[facility]* Diagnosis Onset Date Resolution Status Admit Date ASHD (arteriosclerotic heart disease) acuteOctober 2024 1:22pmChronic kidney diseaseacuteOctober 2024 1:22pmChronic venous insufficiency of lower extremityacuteOctober 2024 1:22pmElevated cholesterolacuteOctober 2024 1:22pmMedicare annual wellness visit, subsequentacuteOctober 2024 1:22pmObesityacuteOctober 2024 1:22pmParoxysmal atrial fibrillationacuteOctober 2024 1:22pmPrimary hypertensionacuteOctober 2024 1:22pmType 2 diabetes mellitus with hyperglycemiaacuteOctober 2024 1:22pm [facility] Work Phone: History general Narrative - Reported* Type Description Date Medical History Type 2 diabetes mellitus with hy perglycemia Medical HistoryParoxysmal atrial fibrillationMedical HistoryChange in bowel habitMedical HistoryWeight lossMedical HistoryColon polypMedical History ConstipatedMedical HistoryASHD (arteriosclerotic heart disease)Medical History Primary hypertensionMedical HistoryElevated cholesterolMedical HistoryBenign prostatic hyperplasia with lower urinary tract symptoms, symptom details unspecifiedMedical HistoryChronic venous insufficiencySurgical HistoryLHC PTCA/STENT [id number] HistoryLHC PTCA/PABLITO [id number] [id number] Surgical [id number] HistorySEE SURGICAL [employer] Other Hisydcs general Narrative - Reported* Type Description Date Medical History Type 2 diabetes mellitus with hy perglycemia Medical HistoryParoxysmal atrial fibrillationMedical HistoryChange in bowel habitMedical HistoryWeight lossMedical HistoryColon polypMedical History ConstipatedMedical HistoryASHD (arteriosclerotic heart disease)Medical History Primary hypertensionMedical HistoryElevated cholesterolMedical HistoryBenign prostatic hyperplasia with lower urinary tract symptoms, symptom details unspecifiedMedical HistoryChronic venous insufficiencyMedical HistoryCKDSurgical HistoryLHC PTCA/STENT [id number] HistoryLHC PTCA/PABLITO [id number] [id number] [id number] HistorySEE SURGICAL HX [employer] Other InstructionsNot on filedocumented in this encounter [facility] SystemInstructionsNot on filedocumented in this encounter [facility] SystemInstructionsNot on filedocumented in this encounter [facility] SystemReason for referral (narrative)No reason for referral information availableUniversity [facility] Work Phone: Summary Purpose Family History No Family History Records FoundNo Family History Records FoundNo Family History Records FoundNo Family History Records Found Advance Directives Advance Directive Response Recorded Date/ Time Advance Directives No February 16, 2018 4:29pm Advance Directive Response Recorded Date/ Time Advance Directives No February 16, 2018 3:29pm Advance Directive Response Recorded Date/ Time Advance Directives No October 26, 025 8:55am Hospital Course Note MR#: [id number] [facility] Y[facility]air[facility] Bar[facility]so Admitted: 12/22/2017 Discharged: 12/23/2017 Date of : 1940 Physician: Jose Hsieh MD DISCHARGE SUMMARYPRCAROLINAS [facility]AINRY CARE PHYSICIAN: Dr. Francesca Mishra.CONSULTING PHYSICIAN: [facility].FINAL DIAGNOSES:1. Unstable angina status post cardiac cath.2. New-onset atrial fibrillation, status post cardioversion, sinus rhythm now.SECONDARY DIAGNOSES:1. Essential hypertension.2. Coronary artery disease.3. Unspecified dyslipidemia.HOSPITAL COURSE: This is a pleasant 77-year-old gentleman [facility], also found to have a new-onset atrialfibrillation. The patient was admitted, seen by Cardiology inconsultation, underwent cardiac catheterization, which revealed a patentright coronary artery stent with minimal coronary artery disease on theanterior descending artery, so the patient was started on medicalmanagement and also underwent cardioversion, which the patient toleratedvery well (more content not included)... Note MR#: [id number] [facility] Admitted: 06/04/2018 Discharged: 06/06/2018 Date of : 1940 Physician: Tonia Mistry MD DISCHARGE SUMMARYDISCHARGE ATTENDING PHYSICIAN: ME[facility] CHACHO Payan PROBLEMS:1. Atrial fibrillation.2. [...] Visit Admit Date ASHD (arteriosclerotic heart disease) [facility] 2024 11:18am Benign prostatic hyperplasia with lower urinary tract symptoms August 29, 2024 11:18am Chronic venous insufficiency of lower ex tremity August 29, 2024 11:18am Elevated cholesterol August 29, 2024 11: 18am Paroxysmal atrial fibrillation August 11:18am Primary hypertension August 29, 2024 11: 18am Stage 3a chronic kidney disease August 11:18am Type 2 diabetes mellitus with hyperglyce [facility] August 29, 2024 11:18am Obesity August 29, 2024 11:1 8am Chief Complaint Admit Date 6 month f/u August 29, 2024 11:1 8am Wound on Lower Leg October 26, 2024 8:5 5am Reason for Visit Admit Date ASHD (arteriosclerotic heart disease) [facility] 2024 11:18am Benign prostatic hyperplasia with lower urinary tract symptoms August 29, 2024 11:18am Chronic venous insufficiency of lower ex tremity August 29, 2024 11:18am Elevated cholesterol August 29, 2024 11: 18am Obesity August 29, 2024 11:1 8am Paroxysmal atrial fibrillation August 11:18am Primary hypertension August 29, 2024 11: 18am Type 2 diabetes mellitus with hyperglyce [facility] August 29, 2024 11:18am Stage 3a chronic kidney disease August 11:18am Chief Complaint Admit Date 6 month f/u August 29, 2024 11:1 8am Wound on Lower Leg October 26, 2024 8:5 5am 1 week f/u November 02, 2024 8:27am Reason for Visit Admit Date ASHD (arteriosclerotic heart disease) [facility] 2024 11:18am Benign prostatic hyperplasia with lower urinary tract symptoms August 29, 2024 11:18am Chronic venous insufficiency of lower ex tremity August 29, 2024 11:18am Elevated cholesterol August 29, 2024 11: 18am Obesity August 29, 2024 11:1 8am Paroxysmal atrial fibrillation August 11:18am Primary hypertension August 29, 2024 11: 18am Type 2 diabetes mellitus with hyperglyce [facility] August 29, 2024 11:18am Stage 3a chronic kidney disease August 11:18am Chronic venous insufficiency October 26, 2024 8:55am Type 2 diabetes mellitus with hyperglyce [facility] October 26, 2024 8:55am Ulcer of left [...] By ContactReferred To Contact Diagnoses Severe claudication ([facility]-HCC) Procedures Vas art doppler lwr bilat mult lev/PVR Oliver Fitzgerald MD [address], [place] [address] Referral IDStatusReasonStart DateExpiration DateVisits RequestedVisits [id number] Review Additional Source Comments (unrecognized sect ion and content) No Status Records FoundNo Status Records FoundNo Status Records FoundNo Status Records Found INFORMATION SOURCE (unrecogn ized section and content) DATE CREATED AUTHOR 06/16/2018 [facility] DATE CREATED AUTHOR AUTHOR'S ORGANIZ ATION 10/31/2022 [facility] DATE CREATED AUTHOR AUTHOR'S ORGANIZ ATION 01/16/2025 [facility] DATE CREATED AUTHOR AUTHOR'S ORGANIZ ATION 04/14/2025 [facility] REASON FOR VISIT (unrecogniz ed section and content) ReasonCommentsDiabetesReasonCommentsPADReasonCommentsClaudicationPeripheral Arterial DiseaseBLE noted edema neuropathy symptomsReasonComments1 year follow upReasonOnset DateCommentsAppointment Zbrujdmydqcq54/16/2025 Care Teams (unrecognized sec tion and content) [...] DateEnd Date Korin Mercedes DO [address] [facility] [address] [place] [address] PCP - [employer]04/29/22 Julio Patton MD [address] [place] [id number] PCP - GeneralInternal Ljxvmnwm06/10/23Team MemberRelationshipSpecialtyStart Date End Date Julio Patton DO [address] [place] [address] PCP - GeneralInternal Medicine08/29/22Team MemberRelationshipSpecialtyStart Date End Date Julio Patton DO [address] [place] [address] PCP - GeneralInternal Medicine08/29/22 Team Status: Inactive Member Role Status Dates [...] MemberRelationshipSpecialtyStart DateEnd Date Julio Patton DO [address] [facility] [place] [address] PCP - GeneralInternal Medicine08/29/22Team MemberRelationshipSpecialtyStart Date End Date Korin Mercedes Eliot, DO [address] [place] [address] PCP - [employer]04/29/22 Julio Patton, DO [address] [place] [address] PCP - GeneralInternal Omxdkxcf77/10/23Team MemberRelationshipSpecialtyStart Date End Date Korin Mercedes Eliot, DO [address] [place] [address] PCP - [employer]04/29/22 Julio Patton, DO [address] [facility] [place] [id number] PCP - GeneralInternal Ihdjdkku15/10/23Team MemberRelationshipSpecialtyStart Date End Date Korin Mercedes, DO [address] [place] [address] PCP - [employer]04/29/22 Julio Patton, DO [address] [facility] [place] [address] PCP - GeneralInternal Clkraqla28/10/23Team MemberRelationshipSpecialtyStart Date End Date Korin Mercedes, DO [address] [place] [address] PCP - [employer]04/29/22 Julio Patton DO [address] [place] [address] PCP - [facility]05/08/23 Team Status: Active Member Role/Relationship Status Dates Julio Patton DO Primary Care Provider Active Team Status: Inactive Member Role/Relationship Status Dates Julio Patton DO Primary Care Provider Active Start: April 25, 2025 End: April 25enjafrancisco Patton DOAttending ProviderActiveStart: April 25, 2025 End: April 25, 2025Team MemberRelationshipSpecialtyStart DateEnd Date Korin Mercedes DO [address] [facility] [address] [place] [address] PCP - [employer]04/29/22 Julio Patton DO [address] [place] [address] PCP - [facility]05/08/23 Goals (unrecognized section and content) Goals may [...] BE BASED ON THE PRIMARY CLINICAL RECORDS. [facility] [place] [employer] [facility]. provides no warranty or guarantee of the accuracy or completeness of information in this document.
[2025-05-23 11:28] LABS: Hematocrit 46.5 % (42.0-54.0); Hemoglobin 15.2 g/dL (14.0-18.0); Immature Granulocytes Abs Auto 0.03 10^3/uL (0.00-0.03); Immature Granulocytes Pct Auto 0.3 % (0.0-0.5); Lymphocytes Absolute Auto 1.8 10^3/uL (1.2-3.8); Mean Corpuscular HGB Conc 32.7 g/dL (29.9-35.2); Mean Corpuscular Hemoglobin 28.9 pg (25.9-34.0); Mean Corpuscular Volume 88.4 fL (80.0-94.0); Platelet Count 167 10^3/uL (150-450); Red Blood Count 5.26 10^6/uL (4.70-6.10); White Blood Count 9.3 10^3/uL (4.0-11.0)
[2025-05-23 11:37] LABS: Anion Gap 12.6; Blood Urea Nitrogen 25.0 mg/dL (7.0-18.0); Calcium 8.8 mg/dL (8.5-10.1); Carbon Dioxide 29.7 mmol/L (21.0-32.0); Chloride 104 mmol/L (98-107); Estimated GFR (African America 47 (>=60 mL/min/1.73m^2); Estimated GFR (Non-African Ame 39 (>=60 mL/min/1.73m^2); Glucose 151 mg/dL (74-106); Potassium 4.3 mmol/L (3.5-5.1); Sodium 142 mmol/L (136-145)
== END 2025-05-23 11:04 | disposition home or self-care (01) ==
LOC: LAB 11:04
PROVIDERS: PCP Internal Medicine; Visit Provider Internal Medicine Cardiovascular Disease
DX: I48.19 Other persistent atrial fibrillation (principal)
CPT/HCPCS: 36415; 80048; 85025